=== PATIENT | male | born 1955 | race Caucasian/White ===

== ENCOUNTER 2021-04-04 05:25 | Inpatient (IN) | payer OTHER, SELFPAY ==
[2021-04-04] VITALS (29 sets, daily range): BP systolic 110–181; BP diastolic 47–95; PULSE 43–98; RESP 12–32; TEMP 36.1–37.1; O2SAT 89–98; BMI 42.3; BMI 40.2
--- NOTE | ~2021-04-04 | US_ITS ---
EXAMINATION: US VENOUS ULTRASOUND WITH DOPPLER LOWER EXTREMITY, BILATERAL CLINICAL INFORMATION: Hypoxia. Rule out DVT in legs. Rest of Dr. Cabello COMPARISON: None TECHNIQUE: Ultrasound of the deep veins is performed from the hip to the calf with compression sonography and color and pulse Doppler assessment. Spectral analysis with color-flow imaging is performed. FINDINGS: RIGHT: There is normal venous compression and respiratory variation and augmented flow. The visualized common femoral vein, superficial femoral vein, profunda femoral vein, popliteal vein, and the trifurcation region shows no evidence of deep venous thrombosis. There is no significant popliteal fossa cyst. -1 LEFT: There is normal venous compression and respiratory variation and augmented flow. The visualized common femoral vein, superficial femoral vein, profunda femoral vein, popliteal vein, and the trifurcation region shows no evidence of deep venous thrombosis. There is no significant popliteal fossa cyst. If the patient's symptoms persist, followup ultrasound in 5 days 7 days might be of value to exclude proximal propagation from a non-visualized calf vein. US/US venous duplex LE BI IMPRESSION: No DVT demonstrated in the bilateral lower extremity .
--- NOTE | ~2021-04-04 | CT_ITS ---
EXAMINATION: CT HEAD WITHOUT CONTRAST CLINICAL INFORMATION: Altered mental status COMPARISON: None TECHNIQUE: Contiguous axial imaging was performed from the skull base to vertex without intravenous administration of contrast. This CT examination was performed using dose optimization techniques as appropriate, variously including the following: *Automated exposure control *Adjustment of mA and/or kV according to patient size (this includes techniques or standardized protocols for targeted exams where dose is matched to indication/reason for exam; i.e. extremities or head) *Use of iterative reconstruction technique DLP: 99 mGy-cm FINDINGS: There is no evidence of acute intracranial hemorrhage or territorial infarction. No abnormal mass effect or midline shift is seen. You to white matter differentiation is well preserved. No extra-axial fluid collections are identified. The ventricles are normal in size. There is no abnormal attenuation within the brain parenchyma. The osseous structures and soft tissues are normal. The mastoid air cells and visualized portions of the paranasal sinuses are well aerated. CT/CT head/brain wo con IMPRESSION: No acute intracranial process seen.
--- NOTE | ~2021-04-04 | XR_ITS ---
EXAMINATION: XR CHEST CLINICAL INFORMATION: Shortness of breath COMPARISON: 08/16/2019 TECHNIQUE: Frontal view of the chest was obtained. FINDINGS: Suboptimal assessment due to patient rotation. Lung volumes are symmetric. No focal consolidation is seen. Interstitial prominence could reflect bronchial wall thickening. No evidence of pneumothorax or significant pleural effusion. Cardiomediastinal silhouette appears similar to prior accounting for differences in patient rotation. Healed left rib fractures are noted. XR/XR chest 1V IMPRESSION: No focal consolidation. Interstitial prominence which could reflect bronchial wall thickening in the setting of acute or chronic bronchitis.
--- NOTE | 2021-04-04 05:46 | ECG_ITS ---
Test Reason : SOB Blood Pressure : / mmHG Vent. Rate : 098 BPM Atrial Rate : 098 BPM P-R Int : 200 ms QRS Dur : 142 ms QT Int : 382 ms P-R-T Axes : -06 -06 036 degrees QTc Int : 487 ms Sinus rhythm with Premature atrial complexes with Aberrant conduction Right bundle branch block Abnormal ECG When compared with ECG of 17-AUG-2019 00:15, Aberrant conduction is now Present Right bundle branch block is now Present ST less elevated in Inferior leads Referred By: Em Muñoz Electronically Signed By:ABISAI YOUNG MD
--- NOTE | 2021-04-04 05:50 | ED.SOB ---
HPI - SOB/Dyspnea General Chief Complaint: Upper Respiratory Symptoms Stated Complaint: SOB X2 HOURS (HX CHF/COPD) Time Seen by Provider: 04/04/21 05:46 Source: patient and family () Mode of arrival: EMS History of Present Illness HPI Narrative: 65-year-old male who is brought in by EMS with onset of shortness of breath approximately 2 hours ago and reports a history of both CHF and COPD. Patient continues to be a daily smoker, has been vaccinated for COVID-19, denies use of diuretics or blood thinners but affirms that he has had prior [place] and CVA. In addition, patient is missing all fingers after frostbite as per at the bedside. Patient's shortness of breath was also accompanied by some chest pain which has currently resolved. Patient is on 4 L via nasal cannula and satting between 90 and 92%. Related Data Allergies Allergy/AdvReac Type Severity Reaction Status Date / Time quetiapine [From Seroquel] Allergy Mild LEG Unverified 01/23/20 16:37 SWELLING onion [Onion] AdvReac Unknown NAUSEA & Unverified 01/23/20 16:37 VOMITING PEPPERS AdvReac Mild NAUSEA & Uncoded 01/23/20 16:37 VOMITING Review of Systems Review of Systems: Pertinent positives and negatives as stated in HPI 10 point review of systems is otherwise negative. [facility] Past Medical History Source: nursing notes reviewed Medical History Complicated UTI (urinary tract infection) Malignant neoplasm of overlapping sites of bladder Nephrolithiasis Neurogenic bladder Prostate cancer Social History Social History Patient Tobacco Use Status: Current everyday Tobacco user Use of substances other than those prescribed or required for medical reasons: No Advance Directives: No Advance Directives Information Provided: Yes Physical Exam Vital Signs: Vital Signs: Last Vital Signs Temp 97.2 F 04/04/21 07:22 Pulse 92 04/04/21 07:22 Resp 14 04/04/21 07:22 BP 141/72 H 04/04/21 07:22 Pulse Ox 97 04/04/21 07:22 Oxygen Flow Rate 4 04/04/21 06:19 Body Mass Index 42.3 VITAL SIGNS: Reviewed. GENERAL: Chronically ill, in no acute distress. HEAD: Normocephalic/atraumatic EYES: PERRLA, EOMI OROPHARYNX: no oral lesions noted, posterior pharynx clear, dry mucosa NECK: Supple, no adenopathy LUNGS: Decreased breath sounds bilaterally with scattered rhonchi and mild expiratory wheeze with rales appreciated in the base, no tachypnea appreciated. SpO2<95> on 4 L nasal cannula CARDIOVASCULAR: Regular rate and rhythm without noted murmurs, no JVD but bilateral lower extremity edema with 1 to 2+ pitting ABDOMEN: Obese, Soft, non-tender, non-distended with bowel sounds. MUSCULOSKELETAL: No tenderness, all digits missing on hands EXTREMITIES: With edema and chronic changes in collar consistent with venous stasis, left foot with ulcer; no fingers on either hand secondary to prior history. SKIN: Inspection of the skin reveals no rashes NEUROLOGIC: Drowsy but arousable and oriented x 4. Strength and sensation to light touch were grossly intact x 4. Course Course Course Narrative: 65-year-old male with history and clinical presentation suggestive of possible combined COPD/CHF. On review of initial labs patient noted to be acidotic with pCO2 of 70 and was placed on BiPAP, given steroids as well as initial albuterol treatment 5 mg. Otherwise, hematology results without significant findings and chemistry results overall stable when compared to baseline. BNP and hsTrop are pending. Patient has also received antibiotics as well as Lasix. Reevaluation(s) Reevaluation #1: I contacted Cardiology regarding the elevated troponin in the context of both COPD as well as CHF exacerbation and pt without chest pain. 0740: Awaiting cardiology call back. Signed out to Dr Grace. Time: 07:20 Reevaluation #2: I discussed the case with Dr. Dowell, the jawbone puller, who accepts admission and agrees with starting heparin and will place the orders for the drip. Time: 07:55 MDM - SOB/Dyspnea Lab Data Result diagrams: 04/04/21 06:32 04/04/21 06:32 Labs: Lab Results 04/04/21 04/04/21 04/04/21 Range/Units 06:14 06:31 06:32 WBC 7.8 (4.8-10.8) X10*3/uL RBC 4.75 (4.60-5.80) X10*6/uL Hgb 14.2 (14.0-18.0) g/dl Hct 46.9 (42.0-52.0) % MCV 98.7 H (80.0-98.0) fL MCH 29.9 (27.0-33.0) pg MCHC 30.3 L (31.0-36.0) g/dl RDW 13.9 (11.0-16.0) % Plt Count 169 (160-400) X10*3/uL MPV 10.2 (9.4-12.4) fL Immature Gran % (Auto) 0.4 (0.0-0.4) % Neut % (Auto) 67.4 (45-73) % Lymph % (Auto) 21.0 (20-40) % [place] % (Auto) 7.0 (2-11) % Eos % (Auto) 4.1 H (0-4) % Baso % (Auto) 0.1 (0-2) % Lymph # (Auto) 1.6 (1.2-4.9) X10*3/uL [place] # (Auto) 0.5 (0.1-1.2) X10*3/uL Eos # (Auto) 0.3 (0.0-0.4) X10*3/uL Baso # (Auto) 0.0 (0.0-0.2) X10*3/uL Abs Immat Gran (auto) 0.03 (0.00-0.03) X10*3/uL Absolute Neuts (auto) 5.2 (2.0-8.3) x10*3/uL Absolute Nucleated RBC 0.000 (0.0-0.012) X10*3/uL Nucleated RBC % (auto) 0.0 (0.0-0.2) /100WBC PT (9.9-13.0) SEC INR (0.9-1.1) VBG pH (7.32-7.43) VBG pCO2 mmHg VBG pO2 mmHg VBG HCO3 (22-26) mmol/L VBG O2 Saturation % VBG Base Excess mmol/L Sodium (135-145) mmol/L Potassium (3.3-5.1) mmol/L Chloride (96-108) mmol/L Carbon Dioxide (22-29) mmol/L Anion Gap (12-20) BUN (9-16) mg/dL Creatinine (0.5-1.4) mg/dL Estim Creat Clear Calc Estimated GFR Random Glucose (60-115) mg/dL Lactic Acid 0.8 (0.5-2.0) mmol/L Calcium (8.4-10.2) mg/dL Total Bilirubin (0.0-1.0) mg/dL AST (5-37) U/L ALT (0-40) U/L Alkaline Phosphatase (39-117) U/L Troponin I High Sens (<3.5-35.0) ng/L B-Natriuretic Peptide (<100) pg/mL Total Protein (6.5-8.0) g/dL Albumin (3.5-5.0) g/dL Urine Color YELLOW Urine Appearance CLEAR Urine pH 6.0 (5.0-8.0) Ur Specific [place] 1.025 (1.005-1.025) Urine Protein TRACE (NEG-TRACE) MG/DL Urine Glucose (UA) NEG (NEG) MG/DL Urine Ketones NEG (NEG) MG/DL Urine Blood NEG (NEG) Urine Nitrite NEG (NEG) Ur Leukocyte Esterase NEG (NEG) 04/04/21 04/04/21 04/04/21 Range/Units 06:32 06:32 06:32 WBC (4.8-10.8) X10*3/uL RBC (4.60-5.80) X10*6/uL Hgb (14.0-18.0) g/dl Hct (42.0-52.0) % MCV (80.0-98.0) fL MCH (27.0-33.0) pg MCHC (31.0-36.0) g/dl RDW (11.0-16.0) % Plt Count (160-400) X10*3/uL MPV (9.4-12.4) fL Immature Gran % (Auto) (0.0-0.4) % Neut % (Auto) (45-73) % Lymph % (Auto) (20-40) % [place] % (Auto) (2-11) % Eos % (Auto) (0-4) % Baso % (Auto) (0-2) % Lymph # (Auto) (1.2-4.9) X10*3/uL [place] # (Auto) (0.1-1.2) X10*3/uL Eos # (Auto) (0.0-0.4) X10*3/uL Baso # (Auto) (0.0-0.2) X10*3/uL Abs Immat Gran (auto) (0.00-0.03) X10*3/uL Absolute Neuts (auto) (2.0-8.3) x10*3/uL Absolute Nucleated RBC (0.0-0.012) X10*3/uL Nucleated RBC % (auto) (0.0-0.2) /100WBC PT 13.3 H (9.9-13.0) SEC INR 1.2 H (0.9-1.1) VBG pH (7.32-7.43) VBG pCO2 mmHg VBG pO2 mmHg VBG HCO3 (22-26) mmol/L VBG O2 Saturation % VBG Base Excess mmol/L Sodium 142 (135-145) mmol/L Potassium 4.6 (3.3-5.1) mmol/L Chloride 111 H (96-108) mmol/L Carbon Dioxide 25 (22-29) mmol/L Anion Gap 11 L (12-20) BUN 16 (9-16) mg/dL Creatinine 1.57 H (0.5-1.4) mg/dL Estim Creat Clear Calc 62.8 Estimated GFR 44 Random Glucose 234 H (60-115) mg/dL Lactic Acid (0.5-2.0) mmol/L Calcium 9.8 (8.4-10.2) mg/dL Total Bilirubin 0.3 (0.0-1.0) mg/dL AST 21 (5-37) U/L ALT 20 (0-40) U/L Alkaline Phosphatase 141 H (39-117) U/L Troponin I High Sens 894.0 H* (<3.5-35.0) ng/L B-Natriuretic Peptide 158 H (<100) pg/mL Total Protein 7.4 (6.5-8.0) g/dL Albumin 4.2 (3.5-5.0) g/dL Urine Color Urine Appearance Urine pH (5.0-8.0) Ur Specific [place] (1.005-1.025) Urine Protein (NEG-TRACE) MG/DL Urine Glucose (UA) (NEG) MG/DL Urine Ketones (NEG) MG/DL Urine Blood (NEG) Urine Nitrite (NEG) Ur Leukocyte Esterase (NEG) 04/04/21 Range/Units 06:36 WBC (4.8-10.8) X10*3/uL RBC (4.60-5.80) X10*6/uL Hgb (14.0-18.0) g/dl Hct (42.0-52.0) % MCV (80.0-98.0) fL MCH (27.0-33.0) pg MCHC (31.0-36.0) g/dl RDW (11.0-16.0) % Plt Count (160-400) X10*3/uL MPV (9.4-12.4) fL Immature Gran % (Auto) (0.0-0.4) % Neut % (Auto) (45-73) % Lymph % (Auto) (20-40) % [place] % (Auto) (2-11) % Eos % (Auto) (0-4) % Baso % (Auto) (0-2) % Lymph # (Auto) (1.2-4.9) X10*3/uL [place] # (Auto) (0.1-1.2) X10*3/uL Eos # (Auto) (0.0-0.4) X10*3/uL Baso # (Auto) (0.0-0.2) X10*3/uL Abs Immat Gran (auto) (0.00-0.03) X10*3/uL Absolute Neuts (auto) (2.0-8.3) x10*3/uL Absolute Nucleated RBC (0.0-0.012) X10*3/uL Nucleated RBC % (auto) (0.0-0.2) /100WBC PT (9.9-13.0) SEC INR (0.9-1.1) VBG pH 7.18 L* (7.32-7.43) VBG pCO2 70 mmHg VBG pO2 38 mmHg VBG HCO3 27 H (22-26) mmol/L VBG O2 Saturation 63.0 % VBG Base Excess -3.1 mmol/L Sodium (135-145) mmol/L Potassium (3.3-5.1) mmol/L Chloride (96-108) mmol/L Carbon Dioxide (22-29) mmol/L Anion Gap (12-20) BUN (9-16) mg/dL Creatinine (0.5-1.4) mg/dL Estim Creat Clear Calc Estimated GFR Random Glucose (60-115) mg/dL Lactic Acid (0.5-2.0) mmol/L Calcium (8.4-10.2) mg/dL Total Bilirubin (0.0-1.0) mg/dL AST (5-37) U/L ALT (0-40) U/L Alkaline Phosphatase (39-117) U/L Troponin I High Sens (<3.5-35.0) ng/L B-Natriuretic Peptide (<100) pg/mL Total Protein (6.5-8.0) g/dL Albumin (3.5-5.0) g/dL Urine Color Urine Appearance Urine pH (5.0-8.0) Ur Specific [place] (1.005-1.025) Urine Protein (NEG-TRACE) MG/DL Urine Glucose (UA) (NEG) MG/DL Urine Ketones (NEG) MG/DL Urine Blood (NEG) Urine Nitrite (NEG) Ur Leukocyte Esterase (NEG) ECG Data Attestation: I personally reviewed and interpreted this ECG as follows: Prior ECG tracings: available for review (08/17/2019) Interpretation: Sinus rhythm with PACs, HR-98, right bundle branch block, NV borderline at 200, QTC mildly prolonged. Discharge Plan Discharge Clinical Impression: COPD exacerbation, CHF exacerbation, Elevated troponin Patient Disposition: Admitted As Inpatient
[2021-04-04] MEDS: Furosemide 100 MG/10 ML VIAL 60 MG IVPUSH (06:07)
--- NOTE | 2021-04-04 06:26 | PC.NURSE ---
PT ABLE TO ANSWER QUESTIONS BUT SLEEPY. PT OLIVE GROWER TO HOSPITAL ATTIRE. LABS BEING DRAWN. UA COLLECTED AND SENT. FOX PLACED. PT PLACED ON BEDSIDE MONITOR.
[2021-04-04 06:28] LABS: Appearance Urine CLEAR; Color Urine YELLOW; Glucose Urine UA NEG (NEG); Leukocyte Esterase Urine NEG (NEG); Nitrite Urine NEG (NEG); Specific Gravity - Urine 1.025 (1.005-1.025); Urine Blood NEG (NEG); Urine Ketones NEG (NEG); Urine Protein TRACE MG/DL (NEG-TRACE)
[2021-04-04 06:37] LABS: MANUAL DIFF FLAG NO
[2021-04-04 06:39] LABS: UACC Culture Trigger NO
[2021-04-04 06:42] LABS: Venous Blood Gas Refer to POC result
[2021-04-04 06:43] LABS: VBG Base Excess -3.1 mmol/L; VBG HCO3 27 mmol/L (22-26); VBG pCO2 70 mmHg; VBG pH 7.18 (7.32-7.43); VBG pO2 38 mmHg
[2021-04-04 06:44] LABS: Basophils Percent Auto 0.1 % (0-2); Eosinophils Absolute Auto 0.3 X10*3/uL (0.0-0.4); Eosinophils Percent Auto 4.1 % (0-4); Hematocrit 46.9 % (42.0-52.0); Hemoglobin 14.2 g/dl (14.0-18.0); Imm Gran Abs Auto 0.03 X10*3/uL (0.00-0.03); Imm Gran Pct Auto 0.4 % (0.0-0.4); Lymphocytes Absolute Auto 1.6 X10*3/uL (1.2-4.9); Mean Corpuscular HGB Conc 30.3 g/dl (31.0-36.0); Mean Corpuscular Hemoglobin 29.9 pg (27.0-33.0); Mean Corpuscular Volume 98.7 fL (80.0-98.0); Mean Platelet Volume 10.2 fL (9.4-12.4); Monocytes Absolute Auto 0.5 X10*3/uL (0.1-1.2); Neutrophils Absolute Auto 5.2 x10*3/uL (2.0-8.3); Neutrophils Percent Auto 67.4 % (45-73); Platelet Count 169 X10*3/uL (160-400); Red Blood Count 4.75 X10*6/uL (4.60-5.80); Red Cell Distribution Width 13.9 % (11.0-16.0); White Blood Count 7.8 X10*3/uL (4.8-10.8)
[2021-04-04 06:48] LABS: INTERNATIONAL NORM RATIO 1.2 (0.9-1.1); Prothrombin Time 13.3 SEC (9.9-13.0)
[2021-04-04 06:49] LABS: Lactic Acid 0.8 mmol/L (0.5-2.0)
[2021-04-04 06:54] LABS: Alanine Aminotransferase 20 U/L (0-40); Albumin Level 4.2 g/dL (3.5-5.0); Alkaline Phosphatase 141 U/L (39-117); Anion Gap 11 (12-20); Aspartate Amino Transferase 21 U/L (5-37); Bilirubin Total 0.3 mg/dL (0.0-1.0); Blood Urea Nitrogen 16 mg/dL (9-16); Calcium 9.8 mg/dL (8.4-10.2); Carbon Dioxide 25 mmol/L (22-29); Chloride 111 mmol/L (96-108); Creatinine Clr Calc Pharmacy 62.8; Estimated Glomerular Filt Rate 44; Glucose Random 234 mg/dL (60-115); Potassium 4.6 mmol/L (3.3-5.1); Sodium 142 mmol/L (135-145); Total Protein 7.4 g/dL (6.5-8.0)
[2021-04-04] MEDS: methylPREDNISolone Sod Succ 125 MG/2 ML VIAL IVPUSH (06:54)
--- NOTE | 2021-04-04 06:56 | SUR.OPER ---
Medicated per mar. red socks placed.
[2021-04-04 07:07] LABS: B Type Natriuretic Peptide 158 pg/mL (<100)
[2021-04-04] MEDS: Albuterol Sulfate (0.083%) 2.5 MG/3 ML VIAL.NEB 5 MG INHALE (07:16)
--- NOTE | 2021-04-04 07:26 | PC.NURSE ---
p is a/o x 3 no sob/roger. noted. pt placed on bipap 18/11 @ 35% 2ndary to lab results. lungs - cta. pt aware of plan of care. pt resting comfortably with at bedside.
[2021-04-04] MEDS: cefTRIAXone sodium 1 GM in 0.9 % Sodium Chloride 50 ML IV (07:37)
[2021-04-04 08:14] LABS: Partial Thromboplastin Time 43.4 SEC (24.1-38.0)
[2021-04-04 08:26] LABS: Venous Blood Gas Refer to POC result
[2021-04-04 08:27] LABS: Hematocrit 42.5 % (42.0-52.0); Mean Corpuscular HGB Conc 30.6 g/dl (31.0-36.0); Mean Corpuscular Hemoglobin 30.2 pg (27.0-33.0); Mean Corpuscular Volume 98.8 fL (80.0-98.0); Mean Platelet Volume 10.3 fL (9.4-12.4); Platelet Count 137 X10*3/uL (160-400); White Blood Count 7.7 X10*3/uL (4.8-10.8)
[2021-04-04 08:27] LABS: VBG Base Excess -0.5 mmol/L; VBG HCO3 29 mmol/L (22-26); VBG pCO2 72 mmHg; VBG pH 7.21 (7.32-7.43); VBG pO2 38 mmHg
[2021-04-04 08:51] LABS: Troponin-I High Sensitivity 715.4 ng/L (<3.5-35.0)
[2021-04-04] MEDS: Heparin Sodium,Porcine 5,000 UNIT/ML VIAL 3000 UNIT IVPUSH (09:07)
[2021-04-04 09:14] LABS: INTERNATIONAL NORM RATIO 1.2 (0.9-1.1); Prothrombin Time 13.9 SEC (9.9-13.0)
[2021-04-04] MEDS: Heparin Sodium,Porcine/1/2NS 25,000 UNIT/250 ML IV.SOLN 10 UNIT IVCONT (09:14)
[2021-04-04 09:17] LABS: PTT Heparin Drip 39.2 SEC (53-77.9)
--- NOTE | 2021-04-04 10:19 | PHA.MEDREC ---
Pharmacy Consult ? Medication Reconciliation Pharmacy has completed the medication reconciliation. Yue PringleD
[2021-04-04 11:17] LABS: Influenza A PCR NEGATIVE (Negative); Influenza B PCR NEGATIVE (Negative); Resp Syncy Virus RNA Qual PCR NEGATIVE (Negative); SARS COV2 PCR INHOUSE NEGATIVE (Negative)
--- NOTE | 2021-04-04 12:01 | PM.CCHP ---
History of Present Illness Date of Service: 04/04/21 Attending physician on admission: Jamil Dowell . Mr. Oakley was admitted to the ICU this morning with hypercarbic respiratory failure. The patient is a 65-year-old male with PMH of obesity, GAY, diabetes, hypertension, CKD (baseline 1.7), COPD (not on oxygen at home, no prior evidence of CO2 retention), HLD, CAD, ? prior [place], CHF, ? CVA, anemia, PTSD presumably secondary to his time in the , and bipolar disorder/depression.? In 2009, the patient had an episode of ascending cholangitis secondary to a common bile duct stone, with pancreatitis and severe sepsis. 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 H&P from 08/17/19 reports that the patient had at previous times variously been on olanzapine, Klonopin, venlafaxine, and Seroquel. More recent past medical history also includes: - Complicated UTI - Malignant neoplasm of bladder - Nephrolithiasis - Neurogenic bladder - Prostate cancer Echo report from 2006 showed slightly increased left ventricular cavity size with mild LVH, EF about 65%, with no wall motion abnormalities. The patient lives with his at home.? He is a current daily smoker. The patient was BIBA early this morning bec of SOB and chest pain.? On arrival to the ED, the patient was reportedly drowsy but arousable and oriented x4.? He was in no acute distress. ?Heart rate was 92, blood pressure 141/72, respiratory rate was 14, with sat of 92% on 4 L oxygen by nasal cannula.? Temperature was 97.2 degrees.? The general physical exam was notable for scattered rhonchi and mild expiratory wheeze and rales.? He had mild pitting edema of the lower extremities, with venous stasis changes.? He had no fingers on either hand. Labs in the ED were notable for a white count of 7.8, hemoglobin of 14 (baseline 11).? BUN/creatinine were 16/1.57 (baseline 20/1.6), bicarb was 25, random glucose was 234, lactic acid was 0.8.? BNP was 158 (was 104 in 2019).? A venous blood gas showed 7.18/70/-3.? U/a was negative.? CXR (my reading) suggests mild CHF and/or chronic lung disease.? The lungs do not show hyperinflated emphysematous lung dz.? The EKG showed new RBBB (IWMI seen in prior EKG was not seen on today?s EKG). The patient was given Lasix + antibiotics.? The troponin came back elevated at 894, with the repeat 715.? I was asked and recommended heparin while we waited for cardiology input.? I saw the patient in the ED at about 9am.? He was breathing easy on BiPAP but was already becoming somewhat agitated.? Admission to the ICU was ordered, with the plan to start him on Precedex, in addition to BiPAP. On arrival to the ICU, the patient was moderately disoriented and mildly agitated.? HR was 68, SR.? BP 156/80.? On BiPAP 14/7/35%, RR was 14-17, Vt 680-950, Ve 10-12L, SpO2 98%.? We changed him over to CPAP 10/30%.? RR was 16-20, Vt 600-1000cc, Ve 10-13L.? The patient was normal thermic.? Pupils were equal round, about 3 mm.? There is no jugular venous distention with the head of bed at about 40 degrees.? Chest was clear to auscultation, with distant breath sounds. ?The patient does have an occasional wet cough. ?There were no wheezes.? The expiratory phase was normal.? Heart tones were soft.? Regular rate and rhythm, with normal-sounding S1 and S2, with no murmur or gallops.? The abdomen was but obese and benign.? The lower extremities had mild pretibial erythema that looks chronic, with no suggestion of acute infection.? There is about 1+ pretibial edema.? No obvious central edema. LABORATORY DATA:? As above.? A 2nd venous blood gas drawn in the ED, reportedly after the patient was on BiPAP for 1-2 hours, showed a PvCO2 unchanged at 72. Not long after arrival to the ICU, the patient became increasingly agitated.? One of his IVs did not work, I had to put a 22 gauge angio into a superficial vein on his right breast.? He required Zyprexa 5 mg IM plus Precedex to get him calm. IMPRESSION: 1. Obesity with GAY, likely OHS. 2. ? COPD 3. CKD.? Renal fxn is currently at baseline 4. Acute hypercapnic and hypoxemic resp failure.? Likely 2? COPD exac or CHF. 5. ? COPD exacerbation:? He?s afebrile, the WBC is normal, but he?s got a wet cough.? The latte could be COPD exac or CHF.? In case he has bronchitis, we?ll put him on a 5-day course of Zithromax.? I see no indication for steroids.? No evidence of pneumonia or sepsis. 6. ? CHF.? The CXR looks most to me like CHF.? The BNP is elevated, but only minimally.? He is edematous.? Notably, he is not on Lasix at home.? He got Lasix in the ED and already put out 1Liter. ?I?ll write him for Lasix again tonight, then 40 mg IV daily. 7. Acute delirium.? He currently takes Klonopin, lamictal, Zyprexa and venlafaxine at home. ?Clearly has baseline psychiatric disease, and has history of PTSD.? We will continue with Zyprexa 5mg q2 hr prn, max dose 30 mg daily, plus Precedex as needed.? Hopefully ?the acute delirium will resolve with resolution of his hypercarbia. 8. DM.? We?ll put him on sliding scale insulin. Critical care time (including extended chart rev and more than a dozen visits to the bedside bec of delirium): 140+ min. [facility] Past Medical History Medical History Complicated UTI (urinary tract infection) Malignant neoplasm of overlapping sites of bladder Nephrolithiasis Neurogenic bladder Prostate cancer Social History Social History Household Members: Spouse Housing: Unknown / Unable to assess Unable to assess alcohol history related to: Unable to respond and Unknown Patient Tobacco Use Status: Tobacco use Unknown Use of substances other than those prescribed or required for medical reasons: Unable to respond Spiritual Healthcare Practices: unable to assess Cheondoism Healthcare Practices: unable to assess Cultural Healthcare Practices: unable to assess Advance Directives: No Advance Directives Information Provided: Yes Recently lost weight without trying: Unsure How much weight loss: Unsure Nutrition Risks: On aspiration precautions Poor oral hygiene: Yes service: Yes Current occupational status: disabled Meds Allergies Allergy/AdvReac Type Severity Reaction Status Date / Time quetiapine [From Seroquel] Allergy Mild LEG Unverified 01/23/20 16:37 SWELLING onion [Onion] AdvReac Unknown NAUSEA & Unverified 01/23/20 16:37 VOMITING PEPPERS AdvReac Mild NAUSEA & Uncoded 01/23/20 16:37 VOMITING Active Medications: Current Medications Heparin Sodium (Porcine) (Heparin Sodium,Porcine 5,000 Unit/Ml Vial) 3,000 unit IVPUSH PROTOCOL BOLUS PRN; Protocol PRN Reason: 40 unit/kg - Heparin Protocol Heparin Sodium (Porcine) (Heparin Sodium,Porcine 5,000 Unit/Ml Vial) 5,000 unit IVPUSH PROTOCOL BOLUS PRN; Protocol PRN Reason: 80 unit/kg - Heparin Protocol Heparin Sodium/Sodium Chloride () 25,000 unit in 250 mls @ 0 mls/hr IVCONT .Q0M HUGO; Protocol Last Admin: 04/04/21 09:14 Dose: 7.86 units/kg/hr, 10 mls/hr Documented by: Pharmacy Consult (Consult Rx Perform Med Rec) 1 each MISCELLANE ONCE PRN PRN Reason: Consult order Home Medications Medication Instructions Recorded Confirmed Last Taken Type aspirin 81 mg tablet,delayed 81 mg PO DAILY 04/04/21 04/04/21 04/03/21 History release atorvastatin 20 mg tablet 10 mg PO BEDTIME 04/04/21 04/04/21 04/03/21 History buprenorphine 5 mcg/hour weekly 1 patch TRANSDERMAL Q7D 04/04/21 04/04/21 Unknown History transdermal patch (Butrans) clonazepam 1 mg tablet 1 mg PO TID 04/04/21 04/04/21 04/03/21 History doxepin 6 mg tablet (Silenor) 6 mg PO BEDTIME PRN 04/04/21 04/04/21 04/03/21 History hydroxyzine pamoate 25 mg capsule 25 mg PO BID PRN 04/04/21 04/04/21 04/03/21 History insulin glargine 100 unit/mL (3 35 unit SUBCUT BEDTIME 04/04/21 04/04/21 04/04/21 History mL) subcutaneous pen (Lantus Solostar U-100 Insulin) insulin lispro 100 unit/mL 12 unit SUBCUT TID 04/04/21 04/04/21 04/03/21 History subcutaneous pen lamotrigine 25 mg tablet 25 mg PO DAILY 04/04/21 04/04/21 04/03/21 History lisinopril 10 mg tablet 10 mg PO DAILY 04/04/21 04/04/21 04/03/21 History multivitamin 1 tab PO DAILY 04/04/21 04/04/21 04/03/21 History olanzapine 15 mg tablet 15 mg PO BID 04/04/21 04/04/21 04/03/21 History omeprazole 20 mg capsule,delayed 20 mg PO DAILY@0630 04/04/21 04/04/21 04/03/21 History release venlafaxine 37.5 mg 37.5 mg PO DAILY 04/04/21 04/04/21 04/03/21 History capsule,extended release 24 hr Physical Exam Vital Signs: Vital Signs: Last Vital Signs Temp 97.2 F 04/04/21 07:22 Pulse 98 04/04/21 11:00 Resp 16 04/04/21 11:28 BP 156/80 H 04/04/21 11:00 Pulse Ox 98 04/04/21 11:00 Oxygen Flow Rate 4 04/04/21 06:19 Body Mass Index 40.2 Results Labs CBC and Chem 7: 04/04/21 08:12 04/04/21 06:32 Labs: Laboratory Results - last 24 hr 04/04/21 04/04/21 04/04/21 06:14 06:31 06:32 MCV 98.7 H MCH 29.9 MCHC 30.3 L RDW 13.9 Plt Count 169 MPV 10.2 Immature Gran % (Auto) 0.4 Neut % (Auto) 67.4 Lymph % (Auto) 21.0 [place] % (Auto) 7.0 Eos % (Auto) 4.1 H Baso % (Auto) 0.1 Lymph # (Auto) 1.6 [place] # (Auto) 0.5 Eos # (Auto) 0.3 Baso # (Auto) 0.0 Abs Immat Gran (auto) 0.03 Absolute Neuts (auto) 5.2 Absolute Nucleated RBC 0.000 Nucleated RBC % (auto) 0.0 PT INR APTT PTT (Heparin Protocol) VBG pH VBG pCO2 VBG pO2 VBG HCO3 VBG O2 Saturation VBG Base Excess Anion Gap Estim Creat Clear Calc Estimated GFR Random Glucose Lactic Acid 0.8 Calcium Total Bilirubin AST ALT Alkaline Phosphatase Troponin I High Sens B-Natriuretic Peptide Total Protein Albumin Urine Color YELLOW Urine Appearance CLEAR Urine pH 6.0 Ur Specific [place] 1.025 Urine Protein TRACE Urine Glucose (UA) NEG Urine Ketones NEG Urine Blood NEG Urine Nitrite NEG Ur Leukocyte Esterase NEG Influenza Type A (PCR) Influenza Type B (PCR) RSV RNA Qual (PCR) SARS-CoV-2 RNA (RT-PCR) 04/04/21 04/04/21 04/04/21 06:32 06:32 06:32 MCV MCH MCHC RDW Plt Count MPV Immature Gran % (Auto) Neut % (Auto) Lymph % (Auto) [place] % (Auto) Eos % (Auto) Baso % (Auto) Lymph # (Auto) [place] # (Auto) Eos # (Auto) Baso # (Auto) Abs Immat Gran (auto) Absolute Neuts (auto) Absolute Nucleated RBC Nucleated RBC % (auto) PT 13.3 H INR 1.2 H APTT 43.4 H PTT (Heparin Protocol) VBG pH VBG pCO2 VBG pO2 VBG HCO3 VBG O2 Saturation VBG Base Excess Anion Gap 11 L Estim Creat Clear Calc 62.8 Estimated GFR 44 Random Glucose 234 H Lactic Acid Calcium 9.8 Total Bilirubin 0.3 AST 21 ALT 20 Alkaline Phosphatase 141 H Troponin I High Sens 894.0 H* B-Natriuretic Peptide 158 H Total Protein 7.4 Albumin 4.2 Urine Color Urine Appearance Urine pH Ur Specific [place] Urine Protein Urine Glucose (UA) Urine Ketones Urine Blood Urine Nitrite Ur Leukocyte Esterase Influenza Type A (PCR) Influenza Type B (PCR) RSV RNA Qual (PCR) SARS-CoV-2 RNA (RT-PCR) 04/04/21 04/04/21 04/04/21 06:36 08:12 08:12 MCV 98.8 H MCH 30.2 MCHC 30.6 L RDW 14.0 Plt Count 137 L MPV 10.3 Immature Gran % (Auto) Neut % (Auto) Lymph % (Auto) [place] % (Auto) Eos % (Auto) Baso % (Auto) Lymph # (Auto) [place] # (Auto) Eos # (Auto) Baso # (Auto) Abs Immat Gran (auto) Absolute Neuts (auto) Absolute Nucleated RBC 0.000 Nucleated RBC % (auto) 0.0 PT INR APTT PTT (Heparin Protocol) VBG pH 7.18 L* VBG pCO2 70 VBG pO2 38 VBG HCO3 27 H VBG O2 Saturation 63.0 VBG Base Excess -3.1 Anion Gap Estim Creat Clear Calc Estimated GFR Random Glucose Lactic Acid Calcium Total Bilirubin AST ALT Alkaline Phosphatase Troponin I High Sens 715.4 H* B-Natriuretic Peptide Total Protein Albumin Urine Color Urine Appearance Urine pH Ur Specific [place] Urine Protein Urine Glucose (UA) Urine Ketones Urine Blood Urine Nitrite Ur Leukocyte Esterase Influenza Type A (PCR) Influenza Type B (PCR) RSV RNA Qual (PCR) SARS-CoV-2 RNA (RT-PCR) 04/04/21 04/04/21 04/04/21 08:14 09:05 09:38 MCV MCH MCHC RDW Plt Count MPV Immature Gran % (Auto) Neut % (Auto) Lymph % (Auto) [place] % (Auto) Eos % (Auto) Baso % (Auto) Lymph # (Auto) [place] # (Auto) Eos # (Auto) Baso # (Auto) Abs Immat Gran (auto) Absolute Neuts (auto) Absolute Nucleated RBC Nucleated RBC % (auto) PT 13.9 H INR 1.2 H APTT PTT (Heparin Protocol) 39.2 L VBG pH 7.21 L VBG pCO2 72 VBG pO2 38 VBG HCO3 29 H VBG O2 Saturation 63.0 VBG Base Excess -0.5 Anion Gap Estim Creat Clear Calc Estimated GFR Random Glucose Lactic Acid Calcium Total Bilirubin AST ALT Alkaline Phosphatase Troponin I High Sens B-Natriuretic Peptide Total Protein Albumin Urine Color Urine Appearance Urine pH Ur Specific [place] Urine Protein Urine Glucose (UA) Urine Ketones Urine Blood Urine Nitrite Ur Leukocyte Esterase Influenza Type A (PCR) NEGATIVE Influenza Type B (PCR) NEGATIVE RSV RNA Qual (PCR) NEGATIVE SARS-CoV-2 RNA (RT-PCR) NEGATIVE Imaging Radiologist's Impressions: Impressions Chest X-Ray 04/04/21 05:46 IMPRESSION: No focal consolidation. Interstitial prominence which could reflect bronchial wall thickening in the setting of acute or chronic bronchitis. Critical Care Time Critical Care Time (minutes): 150
[2021-04-04] MEDS: dexmedeTOMIDidine HCL/NS 400 MCG/100 ML INFUS..BTL 12.72 MCG IVCONT (12:40)
[2021-04-04] MEDS: OLANZapine 10 MG VIAL 5 MG IM ×3 (12:59→19:00)
--- NOTE | 2021-04-04 13:50 | PC.NURSE ---
Patient arrived to unit at 1100 via stretcher with Bipap 14/7 30% on. Patient confused to place and situation but calm and cooperative with at bedside. Bipap taken off and switched to 2L NC per Dr Dowell - Spo2 low 90's. Patient became very agitated after left. Patient pulling O2 cannula and monitor wires off. Patient requiring frequent redirections, swearing at staff. Patient threw BP cuff at this RN when turned around and kicking staff. Zyprexa 5mg IM administered at 1300 and started on Precedex gtt. Soft limb wrist restraints applied because patient continued to pull monitor wires, etc. Patient calm and sleeping. Spo2 down to 88% - CPAP 10 35% applied. HR down to high 40's with occasional apnic episodes on CPAP - Precedex gtt turned off and MD at bedside. Patient unarousable to noxious stimuli - MD aware - no new orders at this time. Current vitals: HR 63, BP 122/60, RR 15, 94% on 35% CPAP.
[2021-04-04 15:46] LABS: PTT Heparin Drip 61.3 SEC (53-77.9)
--- NOTE | 2021-04-04 15:50 | MHC.CM.PN ---
04/04/21 15:04 - Case Mgmt Progress Note by Nicole Robinson Acct Num: [id number] : 08/15/1947 Patient Age: 73 Pt on BIPAP in ICU: somewhat obtunded and unable to participate in CM assessment: information obtained from EMR and from conversation with pt's spouse, Sarah via phone. 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 Pt continues to smoke, however using his digit stumps: 3 packs per day. Pt has 3 hours of BOX REPAIRER per day: Sarah will bring in agency information along with HCP copy today after 4 when she visits. PCP is a new provider from the [facility]: Sarah was unsure of the name. Pt has a w/c, walker and handicap equip van with a lift. He does not have home O2 at this time. Sarah states both her and pt would not want any sort of INPT STR and goals of care are for a return to home. CM to follow for changes in d/c plan as pt may be very deconditioned and require more care than Sarah can manage. Pt will need BLS transport
[2021-04-04] MEDS: dexmedeTOMIDidine HCL/NS 400 MCG/100 ML INFUS..BTL 9.54 MCG IVCONT (19:22)
[2021-04-04 21:02] LABS: ABG Base Excess -0.3 mmol/L; ABG HCO3 26 mmol/L (22-26); ABG pCO2 48 mmHg (32-45); ABG pCO2 TC 47 mmHg (32-45); ABG pH 7.33 (7.35-7.45); ABG pH TC 7.34 (7.35-7.45); ABG pO2 70 mmHg (83-108); ABG pO2 TC 66 (83-108)
[2021-04-04 21:25] LABS: ABG Refer to POC result
[2021-04-04 22:18] LABS: PTT Heparin Drip 64.9 SEC (53-77.9)
[2021-04-04] MEDS: Furosemide 40 MG/4 ML VIAL IVPUSH (23:33)
[2021-04-04] MEDS: Azithromycin 500 MG in 0.9 % Sodium Chloride 250 ML 125 MG IV (23:33)
[2021-04-05] VITALS (26 sets, daily range): BP systolic 118–161; BP diastolic 53–79; PULSE 43–94; RESP 10–28; TEMP 36.1–37.1; O2SAT 88–97; BMI 38.2
[2021-04-05] MEDS: clonazePAM 1 MG TABLET PO (00:56)
[2021-04-05] MEDS: OLANZapine 7.5 MG TABLET 15 MG PO (00:57)
[2021-04-05 05:47] LABS: Hemoglobin 12.9 g/dl (14.0-18.0); PLT CLUMP 1; Red Cell Distribution Width 13.8 % (11.0-16.0)
[2021-04-05 05:48] LABS: Hematocrit 40.7 % (42.0-52.0); Mean Corpuscular HGB Conc 31.7 g/dl (31.0-36.0); Mean Corpuscular Hemoglobin 30.4 pg (27.0-33.0); Platelet Count 127 X10*3/uL (160-400); Red Blood Count 4.24 X10*6/uL (4.60-5.80); White Blood Count 8.1 X10*3/uL (4.8-10.8)
[2021-04-05 05:52] LABS: INTERNATIONAL NORM RATIO 1.4 (0.9-1.1)
--- NOTE | 2021-04-05 09:29 | P.CDIC_ITS ---
CDI Concurrent Query Documentation Clarification: PHYSICIAN'S DOCUMENTATION REQUEST Date of Query: 04/05/21929 Patient Name: Juma Oakley Admit Date: 04/04/21 Dear Doctor, A review of the medical record indicates additional documentation may be needed. Please review below and update the documentation accordingly. Clinical Indicators: Risk Factors/Clinical Indicators/Treatments ICU note: 04/04 - CXR looks most like CHF. Elevated BNP 158 H Lasix in ED: edematous Please provide further specificity regarding the most likely type and acuity of CHF you are evaluating, treating, or monitoring. Examples include: Type: * Systolic * Diastolic * Combined Systolic/Diastolic * Other ? please specify * Unable to determine Acuity: * Acute * Chronic * Acute on chronic * Unable to determine Use of terms such as suspected, likely, concern for, or probable (associated with a specific diagnosis that is being evaluated, monitored, or treated as if it exists) are acceptable and can be coded in the inpatient setting, when docu mented at the time of discharge. Thank you, Amber Palacios [facility], CDIS Extension: [phone] Please use your independent medical judgment in providing your response. THIS QUERY IS PART OF THE PERMANENT MEDICAL RECORD
--- NOTE | 2021-04-05 09:34 | MHC.CDI.CONC ---
CDI Concurrent Query Documentation Clarification: PHYSICIAN'S DOCUMENTATION REQUEST Date of Query: 04/05/21 0934 Patient Name: Juma Oakley Admit Date: 04/04/21 Dear Doctor, A review of the medical record indicates additional documentation may be needed. Please review below and update the documentation accordingly. Clinical Indicators: Risk Factors/Clinical Indicators/Treatments CKD - currently at baseline 1.7 Cr: 1.57 Gfr: 44 Please clarify which of the following accurately represents the patient's renal status: CKD, please provide stage Other (please specify) Unable to determine Stages of Chronic Kidney Disease* Level Description GFR G1 Normal or High > 90 G2 Mildly decreased 60 ? 89 G3a Mildly to moderately decreased 45 ? 59 G3b Moderately to severely decreased 30 - 44 G4 Severely decreased 15 ? 29 G5 Kidney failure < 15 *Source: Kidney Disease: Improving Global Outcomes (KDIGO) 2012 Use of terms such as suspected, likely, concern for, or probable (associated with a specific diagnosis that is being evaluated, monitored, or treated as if it exists) are acceptable and can be coded in the inpatient setting, when documented at the time of discharge. Thank you, Amber Palacios [facility], CDIS Extension: [phone] Please use your independent medical judgment in providing your response. THIS QUERY IS PART OF THE PERMANENT MEDICAL RECORD
[2021-04-05] MEDS: LORazepam 2 MG/ML VIAL 0.5 MG IVPUSH ×2 (10:04→11:51)
[2021-04-05] MEDS: dexmedeTOMIDidine HCL/NS 400 MCG/100 ML INFUS..BTL 15.9 MCG IVCONT (10:18)
[2021-04-05] MEDS: Heparin Sodium,Porcine/1/2NS 25,000 UNIT/250 ML IV.SOLN 10 UNIT IVCONT (10:19)
[2021-04-05 11:48] LABS: VBG HCO3 27 mmol/L (22-26); VBG pCO2 46 mmHg; VBG pH 7.37 (7.32-7.43); VBG pO2 53 mmHg
[2021-04-05 12:00] LABS: D Dimer High Sensitivity < 150 NG/ML
[2021-04-05] MEDS: Lactated Ringers 500 ML IVCONT (12:05)
[2021-04-05 12:08] LABS: Anion Gap 11 (12-20); Blood Urea Nitrogen 22 mg/dL (9-16); Calcium 9.3 mg/dL (8.4-10.2); Carbon Dioxide 27 mmol/L (22-29); Chloride 108 mmol/L (96-108); Creatinine Clr Calc Pharmacy 60.3; Estimated Glomerular Filt Rate 45; Glucose Random 248 mg/dL (60-115); Potassium 4.6 mmol/L (3.3-5.1); Sodium 141 mmol/L (135-145)
[2021-04-05 12:17] LABS: B Type Natriuretic Peptide 89 pg/mL (<100); Troponin-I High Sensitivity 478.7 ng/L (<3.5-35.0)
[2021-04-05 12:30] LABS: Venous Blood Gas Refer to POC result
[2021-04-05 12:30] LABS: TSH reflex Free T4 0.86 uIU/mL (0.32-4.0)
--- NOTE | 2021-04-05 12:57 | PC.NURSE ---
Pt becoming more agitated, threatening to kick staff memebers in the head. IVP ativan given and precedex gtt titrated per emar
--- NOTE | 2021-04-05 13:00 | CA_ITS ---
Transthoracic Echocardiogram Patient (Last, First, Middle): Juma Oakley P Gender: Male Date of : 1955 Age: 65 Procedure Date: 04/05/2021 Procedure Type: Transthoracic Echocardiogram Location: ICU Height: 177.8 cm Weight: 120.66 kg BSA: 2.36 m2 Heart Rate: bpm BP: 139 / 66 mmHg Labor Relations Or Personnel Negotiator: JAZ Referring MD: Louis Santos MD Symptoms: chf Study Quality: Technically Difficult/Contrast ECG Rhythm: Sinus Conclusions: - Even with contrast, difficult to assess LV function. Suspect LVEF about 40%. - Evidence suggests grade II (moderate) diastolic dysfunction. - Mildly increased right ventricular cavity size. Findings Procedure Information Contrast agent, definity, is being given per protocol without apparent complications. Left Ventricle Normal left ventricular cavity size. There is mildly increased left ventricular wall thickness. Regional wall motion abnormalities can not be excluded due to suboptimal endocardial definition. E/E prime ratio is >15, consistent with elevated filling pressures. Evidence suggests grade II (moderate) diastolic dysfunction. Even with contrast, difficult to assess LV function. Suspect LVEF about 40%. Right Ventricle Mildly increased right ventricular cavity size. There is normal right ventricular systolic function. Atria Both atria are normal in size. Aortic Valve There is a normal trileaflet aortic valve. There is no aortic valve stenosis. There is no aortic valve regurgitation. Mitral Valve There is mild mitral annular calcification. There is trace mitral valve regurgitation. There is no mitral valve stenosis. Pulmonic Valve The pulmonic valve was not well visualized. Tricuspid Valve The tricuspid valve was not well visualized. There is no tricuspid valve regurgitation. Tricuspid regurgitation envelope is inadequate for calculation of right ventricular systolic pressure. Great Vessels The asc aorta is normal in size. Venous The inferior vena cava was not well visualized. Pericardium/Pleural There is no evidence of pericardial effusion. Prior Study Comparison Changes noted compared to prior study dated: 07/31/2006. LVEF lower. Measurements 2D Linear Measurements IVSd: 1.27 0.6-0.9/0.6-1.0 cm LVIDd: 5.37 3.9-5.3/4.2-5.9 cm LVIDd Index: 2.28 2.4-3.2/2.2-3.1 cm/m2 LVIDs: 4.46 2.0-3.6 cm LVPWd: 1.26 0.7-1.1 cm Ao Root: 3.80 2.1-3.5 cm LA Diam: 4.40 2.7-3.8/3.0-4.0 cm LAIDs Index: 1.86 1.5-2.3 cm/m2 LV Mass: 351.71 67-162/88-224 g LV Mass Index: 149.03 43-95/49-115 g/m2 LVOT Diam: 2.20 3.0+(-)1.3 cm Mitral Valve MV Pk E: 1.08 MV PK A: 0.97 MV Decel Time: 363.00 E/A: 1.10 E'Lateral: 6.42 E'Medial: 7.07 E/E' Med: 15.30 E/E' Lat: 16.80 PHT: 106.00 MVA PHT: 2.08 Decel [place]: 2.98 Aortic Valve AoV Pk Devante: 1.15 AoV Mn Devante: 0.79 AoV VTI: 0.29 AoV Pk Grad: 5.00 Aov Mn Grad: 3.00 KOFI Cont.VTI: 2.51 LVOT LVOT Pk Devante: 0.74 LVOT Mn Devante: 0.54 LVOT VTI: 0.19 LVOT Pk Grad: 2.00 LVOT Mn Grad: 1.00 LVOT Diam: 2.20 LVOT Area: 3.80 Diastolic Function MV Pk E: 1.08 MV Pk A: 0.97 E/A: 1.10 E'Medial: 7.07 E/E' Med: 15.30 E' Laterial: 6.42 E/E' Lat: 16.80 Right Ventricle TAPSE (mm): 1.89 TVS' Devante: 8.49 Great Vessels Aorta Ao Root-2D: 3.80 2.0-3.7 cm Ao Asc: 3.20 2.1-3.4 cm Updated in Other Vendor System with Status of Final Thanh Herman MD electronically signed on 04/05/2021 4:16:28 PM with status of Final
[2021-04-05 13:23] LABS: Folate > 20.0 ng/mL (> or = 4.0); Vitamin B12 528 pg/mL (200-900)
[2021-04-05] MEDS: Midazolam HCl/PF 2 MG/2 ML VIAL IVPUSH (14:25)
[2021-04-05] MEDS: dexmedeTOMIDidine HCL/NS 400 MCG/100 ML INFUS..BTL 22.26 MCG IVCONT ×2 (14:35→19:05)
--- NOTE | 2021-04-05 17:07 | PM.CCPN ---
Subjective Subjective Date of Service: 04/05/21 Interval History: 65-year-old male continued heavy smoker 3 packs per day with underlying COPD and no known cardiac history and also is a diabetic with a background of a prostate carcinoma as well as a bladder carcinoma who presents with altered mental status noted to be an acute hypercarbic respiratory failure with associated hypoxia and this was treated with BiPAP but apparently has been having some altered behavior at home and zit and some of his behavior did not correct here with with the correction of the hypercarbia so there may be other components to this end we sent off a TSH B12 and folate levels all of which were normal and my bedside echocardiogram day demonstrated mild diffuse hypokinesis without specific segmental wall motion abnormality and 45-50% ejection fraction but he did have a peak troponin of 890 which continue to decline implying that the might have been an acute ischemic event along with a modest increase in BNP which is also resolving so he might have actually had and is scanned ischemic event resulting in heart failure which has reversed itself an EKG has just nonspecific ST-T changes in the inferolateral distribution but a right bundle branch block in sinus rhythm and the acute hypercarbia has since resolved and currently just on nasal cannula Critical Care Time (minutes): 60 Physical Exam Vital Signs: Vital Signs: Last Vital Signs Temp 96.9 F 04/05/21 15:00 Pulse 50 04/05/21 16:00 Resp 28 H 04/05/21 16:00 BP 157/73 H 04/05/21 16:00 Pulse Ox 91 L 04/05/21 16:00 Oxygen Flow Rate 4 04/04/21 06:19 Body Mass Index 38.2 Nonfocal neurologically he does awaken and does talk and he is oriented to place and person Bilateral stasis dermatitis but no edema currently Lungs without diaphragmatic or accessory muscle use and no adventitious sounds diminished bilateral breath sounds Abdomen benign no organomegaly Objective Data Labs CBC & Chem 7: 04/05/21 05:38 04/05/21 11:41 Labs: Laboratory Results - last 24 hr 04/04/21 04/04/21 04/05/21 20:56 21:53 05:38 WBC 8.1 RBC 4.24 L Hgb 12.9 L Hct 40.7 L MCV 96.0 MCH 30.4 MCHC 31.7 RDW 13.8 Plt Count 127 L MPV 10.0 Absolute Nucleated RBC 0.000 Nucleated RBC % (auto) 0.0 PT INR PTT (Heparin Protocol) 64.9 D-Dimer High Sensitivty O2 Saturation 93.0 ABG pH at Pt Temp 7.33 L ABG pH (Temp Correct) 7.34 L ABG pCO2 at Pt Temp 48 H ABG pCO2 (Temp Corrct 47 H ABG pO2 at Pt Temp 70 L ABG pO2 (Temp Correct 66 L ABG HCO3 26 ABG Base Excess (Actual) -0.3 VBG pH VBG pCO2 VBG pO2 VBG HCO3 VBG O2 Saturation VBG Base Excess Sodium Potassium Chloride Carbon Dioxide Anion Gap BUN Creatinine Estim Creat Clear Calc Estimated GFR Random Glucose Calcium Troponin I High Sens B-Natriuretic Peptide Vitamin B12 Folate TSH 04/05/21 04/05/21 04/05/21 05:38 11:41 11:41 WBC RBC Hgb Hct MCV MCH MCHC RDW Plt Count MPV Absolute Nucleated RBC Nucleated RBC % (auto) PT 16.0 H INR 1.4 H PTT (Heparin Protocol) 63.0 D-Dimer High Sensitivty O2 Saturation ABG pH at Pt Temp ABG pH (Temp Correct) ABG pCO2 at Pt Temp ABG pCO2 (Temp Corrct ABG pO2 at Pt Temp ABG pO2 (Temp Correct ABG HCO3 ABG Base Excess (Actual) VBG pH VBG pCO2 VBG pO2 VBG HCO3 VBG O2 Saturation VBG Base Excess Sodium 141 Potassium 4.6 Chloride 108 Carbon Dioxide 27 Anion Gap 11 L BUN 22 H Creatinine 1.55 H Estim Creat Clear Calc 60.3 Estimated GFR 45 Random Glucose 248 H Calcium 9.3 Troponin I High Sens 478.7 H* B-Natriuretic Peptide 89 Vitamin B12 Folate TSH 0.86 04/05/21 04/05/21 04/05/21 11:41 11:41 11:42 WBC RBC Hgb Hct MCV MCH MCHC RDW Plt Count MPV Absolute Nucleated RBC Nucleated RBC % (auto) PT INR PTT (Heparin Protocol) D-Dimer High Sensitivty < 150 O2 Saturation ABG pH at Pt Temp ABG pH (Temp Correct) ABG pCO2 at Pt Temp ABG pCO2 (Temp Corrct ABG pO2 at Pt Temp ABG pO2 (Temp Correct ABG HCO3 ABG Base Excess (Actual) VBG pH 7.37 VBG pCO2 46 VBG pO2 53 VBG HCO3 27 H VBG O2 Saturation 83.0 VBG Base Excess 2.0 Sodium Potassium Chloride Carbon Dioxide Anion Gap BUN Creatinine Estim Creat Clear Calc Estimated GFR Random Glucose Calcium Troponin I High Sens B-Natriuretic Peptide Vitamin B12 528 Folate > 20.0 TSH Microbiology Microbiology Results: Microbiology 04/04/21 06:31 Blood - Venous Blood Culture - Preliminary No growth after 24 hours. 04/04/21 06:31 Blood - Venous Blood Culture - Preliminary No growth after 24 hours. Progress Note: A&P Assessment and plan (1) COPD exacerbation: Status: Acute (2) CHF exacerbation: Status: Acute (3) Elevated troponin: Status: Acute (4) Nephrolithiasis: Status: Acute (5) Complicated UTI (urinary tract infection): Status: Acute (6) Prostate cancer: Status: Acute (7) Acute coronary syndrome with high troponin: Status: Acute Assessment and Plan: For now will consider anticoagulation with either heparin or Lovenox along with aspirin as prophylaxis and consider possibility of ARB and will follow blood gas for any return of hypercarbia that might require at least nocturnal noninvasive ventilation Quality Stroke Does the patient have a stroke diagnosis?: No VTE Prior VTE?: No VTE Risk Level:: Medical - moderate - high VTE Device Contraindication: Treatment Not Indicated VTE Drug Contraindication: Treatment Not Indicated
--- NOTE | 2021-04-05 18:37 | PC.NURSE ---
VSS, Sr/SB on tele. Pt oriented to self only, yelling out, combative towards staff. Precedex gtt titrated per EMAR. LS dim, pt on cpap 8; 35% or 5L NC when aware. U/o 10-30ml/hr aware. Pt remains NPO. small sips of water for comfort given. Pt had hermilo doppler, echo and head ct done. awaiting results. pt repoed as tolerated/as pt would let staff, bed bath given, updated bedside
[2021-04-05] MEDS: Atorvastatin Calcium 10 MG TABLET PO (21:09)
[2021-04-05] MEDS: Azithromycin 250 MG TABLET PO (21:36)
[2021-04-05] MEDS: OLANZapine 10 MG VIAL 5 MG IM (21:36)
[2021-04-06] VITALS (18 sets, daily range): BP systolic 113–144; BP diastolic 59–88; PULSE 56–113; RESP 13–34; TEMP 36.2–36.7; O2SAT 89–95; BMI 36.9
[2021-04-06 01:52] LABS: Glucose, Whole Blood 209 mg/dL (60-115)
[2021-04-06 05:41] LABS: MANUAL DIFF FLAG NO
[2021-04-06 05:44] LABS: VBG Base Excess 0.1 mmol/L; VBG HCO3 26 mmol/L (22-26); VBG pCO2 48 mmHg; VBG pH 7.34 (7.32-7.43); VBG pO2 34 mmHg
[2021-04-06 05:48] LABS: Basophils Percent Auto 0.1 % (0-2); Eosinophils Absolute Auto 0.4 X10*3/uL (0.0-0.4); Eosinophils Percent Auto 4.9 % (0-4); Hematocrit 44.5 % (42.0-52.0); Hemoglobin 14.1 g/dl (14.0-18.0); Imm Gran Abs Auto 0.03 X10*3/uL (0.00-0.03); Imm Gran Pct Auto 0.3 % (0.0-0.4); Lymphocytes Absolute Auto 1.6 X10*3/uL (1.2-4.9); Lymphocytes Percent Auto 18.5 % (20-40); Mean Corpuscular HGB Conc 31.7 g/dl (31.0-36.0); Mean Corpuscular Hemoglobin 30.3 pg (27.0-33.0); Mean Corpuscular Volume 95.5 fL (80.0-98.0); Mean Platelet Volume 10.5 fL (9.4-12.4); Monocytes Absolute Auto 0.6 X10*3/uL (0.1-1.2); Monocytes Percent Auto 6.6 % (2-11); Neutrophils Absolute Auto 6.1 x10*3/uL (2.0-8.3); Neutrophils Percent Auto 69.6 % (45-73); Platelet Count 160 X10*3/uL (160-400); Red Blood Count 4.66 X10*6/uL (4.60-5.80); Red Cell Distribution Width 13.6 % (11.0-16.0); White Blood Count 8.8 X10*3/uL (4.8-10.8)
[2021-04-06 05:49] LABS: INTERNATIONAL NORM RATIO 1.5 (0.9-1.1); Prothrombin Time 17.7 SEC (9.9-13.0)
[2021-04-06 05:52] LABS: PTT Heparin Drip 58.8 SEC (53-77.9)
[2021-04-06 06:18] LABS: Anion Gap 13 (12-20); Blood Urea Nitrogen 25 mg/dL (9-16); Calcium 9.3 mg/dL (8.4-10.2); Carbon Dioxide 25 mmol/L (22-29); Chloride 108 mmol/L (96-108); Creatinine Clr Calc Pharmacy 64.4; Estimated Glomerular Filt Rate 49; Glucose Random 216 mg/dL (60-115); Magnesium 1.2 mg/dL (1.6-2.6); Phosphorus 2.2 mg/dL (2.7-4.5); Potassium 4.3 mmol/L (3.3-5.1); Sodium 142 mmol/L (135-145); Troponin-I High Sensitivity 253.6 ng/L (<3.5-35.0)
[2021-04-06 07:28] LABS: Venous Blood Gas Refer to POC result
--- NOTE | 2021-04-06 07:38 | P.CDIC_ITS ---
CDI Concurrent Query Documentation Clarification: PHYSICIAN'S DOCUMENTATION REQUEST Date of Query: 04/06/21 0739 Patient Name: Juma Oakley Admit Date: 04/04/21 Dear Doctor, A review of the medical record indicates additional documentation may be needed. Please review below and update the documentation accordingly. Risk Factors/Clinical Indicators/Treatments ICU note 04/04 - patient becoming agitated, moderately disoriented, placed on BIPAP. Zyprexa, Precedex to calm him down. History of PTSD, psychiatric issues. Home meds: Klonopin, Lamictal, Zyprexia, Venlafaxine. Based on the above, could you clarify in the Progress Notes which, if any of the following, is the most likely etiology of the confusion/altered mental status? l * Encephalopathy - indicate type such as metabolic, toxic, septic, alcoholic, hypertensive, etc. * Acute delirium - indicate known or suspected etiology, due to narcotics or other drugs * Acute or subacute confusional state due to (specify known or suspected etiology) * Other etiology (please specify) * Unable to determine Use of terms such as suspected, likely, concern for, or probable (associated with a specific diagnosis that is being evaluated, monitored, or treated as if it exists) are acceptable and can be coded in the inpatient setting, when documented at the time of discharge. Thank you, Amber Palacios [facility], CDIS Extension: [phone] Please use your independent medical judgment in providing your response. THIS QUERY IS PART OF THE PERMANENT MEDICAL RECORD
[2021-04-06 07:54] LABS: Glucose, Whole Blood 200 mg/dL (60-115)
[2021-04-06] MEDS: Magnesium Sulfate/H2O 2 GM/50 ML PIGGYBACK IV (08:54)
[2021-04-06] MEDS: Aspirin Enteric Coated 81 MG TABLET.DR PO (10:35)
[2021-04-06 11:09] LABS: Glucose, Whole Blood 267 mg/dL (60-115)
[2021-04-06] MEDS: Spironolactone 25 MG TABLET PO (11:10)
[2021-04-06] MEDS: Insulin Lispro 100 UNIT/ML 3 ML VIAL SUBCUT ×3 (11:12→19:31)
--- NOTE | 2021-04-06 11:59 | MHC.SL.SWA ---
Speech Pathologist Impression: Oral Phase Dysphagia Risk of Aspiration Due to: Reduced Cognition Dysphasia Diet Status: Upgrade Liquid Consistency and Strategies for Safe Swallow: Liquid Intake Recommendation: Thin Liquid Intake Strategies: Small Sips No Straws Solid Food Consistency: Dietary Recommendations: Chopped/Advanced (NDD3) Additional Modifications to Solid Foods: Pt requires full assist for all food and liquid consumption due to manual impairment. Oral Medication Intake: Whole with Liquid Compensatory Strategies and Precautions to be Taken for Safe Swallow: Supervision While Eating and Drinking for Safe Swallow: Total Supervision (1:1) Foods to Avoid: Foods that require ample chewing for consumption Swallowing Recommended Treatments: Recommendation for Speech: Inpatient Speech Therapy PT with mild oral phase dysphagia due to lack of dentition, mild risk due to mental status change which is resolving (returning to baseline). 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 Comment: Continue WASHER AND CRUSHER TENDER TX X1 to monitor toleration of recommended diet. Frequency/Duration: Date Range for Service Req: Timeline to reassess: Steam Hammer Operator Clinican/Clinical Fellow: No Supervisory Statement: I have reviewed and agree with the student/clinical fellow's documentation: Speech Language Pathologist: Gina Munson M.A., CCC-WASHER AND CRUSHER TENDER
--- NOTE | 2021-04-06 12:00 | PM.CCPN ---
Subjective Subjective Date of Service: 04/06/21 Interval History: 65-year-old long standing 3 pack-a-day smoker with severe COPD probable features of sleep apnea and obesity hypoventilation presented with acute on chronic hypercarbic and hypoxic respiratory failure and altered mental status responded to BiPAP therapy which we did for 2 days consecutively and now it is just a nocturnal requirement and mental status is markedly improved but he does have a background of forgetfulness some manifestations of progressive dementia and he has an underlying schizoaffective disorder but he was clearly altered beyond that and probably on the basis of his hypercarbia But he had an acute elevation of troponin at in the mid 800s which gradually diminished to 700 in 400 than 200 therefore must consider this to be an acute coronary syndrome possibly a non ST-elevation SD with troponin positivity clearly a risk of recurrence and we treated him with aspirin and heparin anticoagulation now switched to apixaban and is in normal sinus rhythm without complaint he has got stable stage II renal failure with creatinine of 1.45 maintaining good urine output good vital signs and my bedside echo revealed mild eccentric hypertrophy with reduced systolic and reduce diastolic reserve and elevated left heart filling pressures and I am going to initiate spironolactone in addition and will have cardiology follow-up to decide about invasive versus noninvasive testing to rule out coronary disease but my leaning would be if he would permit for invasive approach but this ischemic event could easily have been the tipping point for his acute respiratory failure Critical Care Time (minutes): 45 Physical Exam Vital Signs: Vital Signs: Last Vital Signs Temp 98.1 F 04/06/21 08:00 Pulse 113 H 04/06/21 11:10 Resp 15 04/06/21 10:00 BP 129/66 04/06/21 11:10 Pulse Ox 92 04/06/21 10:00 Oxygen Flow Rate 4 04/04/21 06:19 Body Mass Index 36.9 Awake and alert and no longer agitated and currently nonfocal Cardiac as above Chest with diminished bilateral breath sounds no adventitious sounds Abdomen soft no organomegaly Head CT scan was negative despite having prostate and bladder carcinomas Objective Data Labs CBC & Chem 7: 04/06/21 05:32 04/06/21 05:32 Labs: Laboratory Results - last 24 hr 04/05/21 04/05/21 04/05/21 11:41 11:41 11:41 WBC RBC Hgb Hct MCV MCH MCHC RDW Plt Count MPV Immature Gran % (Auto) Neut % (Auto) Lymph % (Auto) [place] % (Auto) Eos % (Auto) Baso % (Auto) Lymph # (Auto) [place] # (Auto) Eos # (Auto) Baso # (Auto) Abs Immat Gran (auto) Absolute Neuts (auto) Absolute Nucleated RBC Nucleated RBC % (auto) PT INR PTT (Heparin Protocol) D-Dimer High Sensitivty VBG pH VBG pCO2 VBG pO2 VBG HCO3 VBG O2 Saturation VBG Base Excess Sodium 141 Potassium 4.6 Chloride 108 Carbon Dioxide 27 Anion Gap 11 L BUN 22 H Creatinine 1.55 H Estim Creat Clear Calc 60.3 Estimated GFR 45 POC Glucose Random Glucose 248 H Calcium 9.3 Phosphorus Magnesium Troponin I High Sens 478.7 H* B-Natriuretic Peptide 89 Vitamin B12 528 Folate > 20.0 TSH 0.86 04/05/21 04/06/21 04/06/21 11:41 01:38 05:32 WBC RBC Hgb Hct MCV MCH MCHC RDW Plt Count MPV Immature Gran % (Auto) Neut % (Auto) Lymph % (Auto) [place] % (Auto) Eos % (Auto) Baso % (Auto) Lymph # (Auto) [place] # (Auto) Eos # (Auto) Baso # (Auto) Abs Immat Gran (auto) Absolute Neuts (auto) Absolute Nucleated RBC Nucleated RBC % (auto) PT 17.7 H INR 1.5 H PTT (Heparin Protocol) 58.8 D-Dimer High Sensitivty < 150 VBG pH VBG pCO2 VBG pO2 VBG HCO3 VBG O2 Saturation VBG Base Excess Sodium Potassium Chloride Carbon Dioxide Anion Gap BUN Creatinine Estim Creat Clear Calc Estimated GFR POC Glucose 209 H Random Glucose Calcium Phosphorus Magnesium Troponin I High Sens B-Natriuretic Peptide Vitamin B12 Folate TSH 04/06/21 04/06/21 04/06/21 05:32 05:32 05:32 WBC 8.8 RBC 4.66 Hgb 14.1 Hct 44.5 MCV 95.5 MCH 30.3 MCHC 31.7 RDW 13.6 Plt Count 160 D MPV 10.5 Immature Gran % (Auto) 0.3 Neut % (Auto) 69.6 Lymph % (Auto) 18.5 L [place] % (Auto) 6.6 Eos % (Auto) 4.9 H Baso % (Auto) 0.1 Lymph # (Auto) 1.6 [place] # (Auto) 0.6 Eos # (Auto) 0.4 Baso # (Auto) 0.0 Abs Immat Gran (auto) 0.03 Absolute Neuts (auto) 6.1 Absolute Nucleated RBC 0.000 Nucleated RBC % (auto) 0.0 PT INR PTT (Heparin Protocol) D-Dimer High Sensitivty VBG pH VBG pCO2 VBG pO2 VBG HCO3 VBG O2 Saturation VBG Base Excess Sodium 142 Potassium 4.3 Chloride 108 Carbon Dioxide 25 Anion Gap 13 BUN 25 H Creatinine 1.45 H Estim Creat Clear Calc 64.4 Estimated GFR 49 POC Glucose Random Glucose 216 H Calcium 9.3 Phosphorus 2.2 L Magnesium 1.2 L* Troponin I High Sens 253.6 H* B-Natriuretic Peptide Vitamin B12 Folate TSH 04/06/21 04/06/21 04/06/21 05:39 07:51 11:06 WBC RBC Hgb Hct MCV MCH MCHC RDW Plt Count MPV Immature Gran % (Auto) Neut % (Auto) Lymph % (Auto) [place] % (Auto) Eos % (Auto) Baso % (Auto) Lymph # (Auto) [place] # (Auto) Eos # (Auto) Baso # (Auto) Abs Immat Gran (auto) Absolute Neuts (auto) Absolute Nucleated RBC Nucleated RBC % (auto) PT INR PTT (Heparin Protocol) D-Dimer High Sensitivty VBG pH 7.34 VBG pCO2 48 VBG pO2 34 VBG HCO3 26 VBG O2 Saturation 52.0 VBG Base Excess 0.1 Sodium Potassium Chloride Carbon Dioxide Anion Gap BUN Creatinine Estim Creat Clear Calc Estimated GFR POC Glucose 200 H 267 H Random Glucose Calcium Phosphorus Magnesium Troponin I High Sens B-Natriuretic Peptide Vitamin B12 Folate TSH Microbiology Microbiology Results: Microbiology 04/04/21 06:31 Blood - Venous Blood Culture - Preliminary No growth after 48 hours. 04/04/21 06:31 Blood - Venous Blood Culture - Preliminary No growth after 48 hours. Progress Note: A&P Assessment and plan (1) Acute coronary syndrome with high troponin: Status: Acute (2) COPD exacerbation: Status: Acute (3) CHF exacerbation: Status: Acute (4) Elevated troponin: Status: Acute (5) Nephrolithiasis: Status: Acute (6) Complicated UTI (urinary tract infection): Status: Acute (7) Neurogenic bladder: Status: Acute (8) Prostate cancer: Status: Acute Assessment and Plan: Plan is to transfer to the floor on the above medication for cardiology follow-up and possible follow-up with Pulmonary to arrange for outpatient nocturnal CPAP Quality Stroke Does the patient have a stroke diagnosis?: No VTE Prior VTE?: No VTE Risk Level:: Medical - moderate - high VTE Device Contraindication: Treatment Not Indicated VTE Drug Contraindication: Treatment Not Indicated
--- NOTE | 2021-04-06 14:40 | MHC.CM.PN ---
with the presence of an acoustical tile drill press operator i had a lengthy discussion c pt's regarding the goals of discharge. she cares for all aspects of patient - essentially 28/11 she is not his bulk delivery driver but his . he does however get 3 hr/day , 9 am - 12 noon - m- of bulk delivery driver svcs [facility]. the [facility] used [facility] in [place], [place]. the patient's has requested more bulk delivery driver hrs through the [facility] system but have not proved fruitful thus far. he is not eligible for [employer] benefits. he has 17 yrs in the [place] and [facility] [place], [place]. the described stressful dynamics in their home, relationship and the care she provides for him. he is essentially wc bound. they have a mckenna lift, shower ch , and other equipment to make it adaptive for him to stay home. per the , the problem is his chronic state of agitation, non compliance c medications and care. she does not want him to go to STR/ SNF - she would like him to return home p recieving med adjustments that would make him peaceful and more easy to care for . she also questions his capacity to make decisions and she would like a psychiatric evaluation to determine this as well as to find out if he would benefit from an acute inpatient psych admission. she feels confident that if he was on the right medication regimen then things would go much smoother in caring for him at home and that she could do it for the long haul. at this time she is very stressed and at her limits in being his caregiver. at this time the dc plan is uncertain. pt may benefit from inpt psych - which remains to be seen or may be dc'd home c vna svcs possible. cm to cont. to follow.
[2021-04-06 16:15] LABS: Glucose, Whole Blood 210 mg/dL (60-115)
[2021-04-06] MEDS: Atorvastatin Calcium 10 MG TABLET PO (19:24)
[2021-04-06] MEDS: Apixaban 5 MG TABLET PO (19:24)
[2021-04-06] MEDS: Azithromycin 250 MG TABLET PO (19:25)
[2021-04-06] MEDS: Insulin Glargine,Hum.rec.anlog 100 UNIT/ML 10 ML VIAL 25 UNIT SUBCUT (19:31)
[2021-04-06 19:35] LABS: Glucose, Whole Blood 319 mg/dL (60-115)
[2021-04-07] VITALS (9 sets, daily range): BP systolic 124–153; BP diastolic 64–78; PULSE 69–97; RESP 16–20; TEMP 35.9–36.9; O2SAT 92–96
[2021-04-07 06:13] LABS: MANUAL DIFF FLAG NO
[2021-04-07 06:20] LABS: VBG Base Excess 1.4 mmol/L; VBG HCO3 27 mmol/L (22-26); VBG pCO2 50 mmHg; VBG pH 7.34 (7.32-7.43); VBG pO2 59 mmHg
[2021-04-07 06:20] LABS: Venous Blood Gas Refer to POC result
[2021-04-07 06:31] LABS: INTERNATIONAL NORM RATIO 1.7 (0.9-1.1); Prothrombin Time 19.9 SEC (9.9-13.0)
[2021-04-07 07:08] LABS: Basophils Percent Auto 0.1 % (0-2); Eosinophils Absolute Auto 0.4 X10*3/uL (0.0-0.4); Hematocrit 41.6 % (42.0-52.0); Hemoglobin 13.4 g/dl (14.0-18.0); Imm Gran Abs Auto 0.01 X10*3/uL (0.00-0.03); Imm Gran Pct Auto 0.1 % (0.0-0.4); Lymphocytes Absolute Auto 1.5 X10*3/uL (1.2-4.9); Lymphocytes Percent Auto 21.3 % (20-40); Mean Corpuscular HGB Conc 32.2 g/dl (31.0-36.0); Mean Corpuscular Hemoglobin 30.1 pg (27.0-33.0); Mean Corpuscular Volume 93.5 fL (80.0-98.0); Mean Platelet Volume 10.5 fL (9.4-12.4); Monocytes Absolute Auto 0.6 X10*3/uL (0.1-1.2); Monocytes Percent Auto 7.9 % (2-11); Neutrophils Absolute Auto 4.5 x10*3/uL (2.0-8.3); Neutrophils Percent Auto 65.6 % (45-73); Platelet Count 164 X10*3/uL (160-400); Red Blood Count 4.45 X10*6/uL (4.60-5.80); Red Cell Distribution Width 13.8 % (11.0-16.0); White Blood Count 6.9 X10*3/uL (4.8-10.8)
[2021-04-07 07:21] LABS: Glucose, Whole Blood 265 mg/dL (60-115)
[2021-04-07 07:23] LABS: Anion Gap 14 (12-20); Blood Urea Nitrogen 24 mg/dL (9-16); Calcium 9.4 mg/dL (8.4-10.2); Carbon Dioxide 24 mmol/L (22-29); Chloride 109 mmol/L (96-108); Creatinine Clr Calc Pharmacy 65.5; Estimated Glomerular Filt Rate 51; Glucose Random 284 mg/dL (60-115); Magnesium 1.3 mg/dL (1.6-2.6); Phosphorus 2.8 mg/dL (2.7-4.5); Sodium 143 mmol/L (135-145)
[2021-04-07] MEDS: Insulin Lispro 100 UNIT/ML 3 ML VIAL SUBCUT ×4 (07:48→20:03)
[2021-04-07] MEDS: Apixaban 5 MG TABLET PO (07:48)
[2021-04-07] MEDS: Spironolactone 25 MG TABLET PO (07:48)
[2021-04-07] MEDS: Aspirin Enteric Coated 81 MG TABLET.DR PO (07:49)
[2021-04-07] MEDS: Magnesium Sulfate/H2O 2 GM/50 ML PIGGYBACK IV (09:18)
[2021-04-07] MEDS: clonazePAM 1 MG TABLET PO ×3 (09:18→20:03)
[2021-04-07] MEDS: OLANZapine 7.5 MG TABLET 15 MG PO ×2 (09:18→20:03)
--- NOTE | 2021-04-07 10:17 | PM.CNCAR ---
History of Present Illness History of Present Illness Date of Service: 04/07/21 Chief complaint: Acute respiratory failure Narrative: This is a cardiology consultation regarding elevated troponins. Multiple medical comorbidities including obesity, obstructive sleep apnea, diabetes, hypertension, chronic kidney disease, COPD,? CHF, CVA, PTSD based on H&P. It seems that he was admitted with hypercarbic respiratory failure. In this setting, he was treated in the ICU and seems much better and now in the floor. It seems that he was treated with BiPAP. He also had been given antibiotics, diuretics. Troponins were elevated and that led to this consultation. When I questioned the patient regarding symptoms, he states that he had some chest pain upon arrival but seems very vague. His main complaint was that he was short of breath and that is improved since. No known coronary disease according to him but apparently underwent a stress test many years ago, unknown findings. Minimal ambulation at baseline. He was smoker till admission. Review of Systems Review of Systems: Yes all other systems are reviewed and are negative Cardiovascular: Cardiovascular: Reports as per HPI, Reports no additional cardiovascular complaints, Denies acrocyanosis, Denies cool extremities, Denies painful fingertips, Reports chest pain, Denies chest pain at rest, Denies diaphoresis, Denies syncope, Denies irregular heart rhythm, Denies claudication, Denies leg edema, Denies lightheadedness, Denies palpitations and Reports dyspnea Respiratory: Respiratory: Reports dyspnea Neurologic: Denies syncope Endocrine: Endocrine: Denies palpitations [facility] Past Medical History Medical History Complicated UTI (urinary tract infection) Malignant neoplasm of overlapping sites of bladder Nephrolithiasis Neurogenic bladder Prostate cancer Family History Family History (Updated 04/07/21 @ 10:21 by Thanh Herman MD) Father CAD (coronary artery disease) Social History Social History Household Members: Spouse Housing: Unknown / Unable to assess Unable to assess alcohol history related to: Unable to respond and Unknown Patient Tobacco Use Status: Tobacco use Unknown Use of substances other than those prescribed or required for medical reasons: Unable to respond Currently Displaying Signs/Symptoms of Drug Intoxication Withdrawal: No Spiritual Healthcare Practices: unable to assess Congregation Healthcare Practices: unable to assess Cultural Healthcare Practices: unable to assess Advance Directives: No Advance Directives Information Provided: Yes Do you have thoughts of harming others: None Do you have a plan to hurt others: No Plan Recently lost weight without trying: Unsure How much weight loss: Unsure Nutrition Risks: On aspiration precautions Poor oral hygiene: Yes service: Yes Current occupational status: disabled Meds Allergies Allergy/AdvReac Type Severity Reaction Status Date / Time quetiapine [From Seroquel] Allergy Mild LEG Verified 04/06/21 19:22 SWELLING onion [Onion] AdvReac Unknown NAUSEA & Verified 04/06/21 19:22 VOMITING PEPPERS AdvReac Mild NAUSEA & Uncoded 01/23/20 16:37 VOMITING Active Medications: Current Medications Apixaban (Apixaban 5 Mg Tablet) 5 mg PO BID [facility] Last Admin: 04/07/21 07:48 Dose: 5 mg Documented by: Aspirin (Aspirin Enteric Coated 81 Mg Tablet.) 81 mg PO DAILY [facility] Last Admin: 04/07/21 07:49 Dose: 81 mg Documented by: Atorvastatin Calcium (Atorvastatin Calcium 10 Mg Tablet) 10 mg PO BEDTIME [facility] Last Admin: 04/06/21 19:24 Dose: 10 mg Documented by: Azithromycin (Azithromycin 250 Mg Tablet) 250 mg PO Q24H HUGO Stop: 04/08/21 21:01 Last Admin: 04/06/21 19:25 Dose: 250 mg Documented by: Clonazepam (Clonazepam 1 Mg Tablet) 1 mg PO TID [facility] Last Admin: 04/07/21 09:18 Dose: 1 mg Documented by: Insulin Glargine (Insulin Glargine,Hum.Rec.Anlog 100 Unit/Ml 10 Ml Vial) 25 unit SUBCUT BEDTIME [facility] Last Admin: 04/06/21 19:31 Dose: 25 unit Documented by: Insulin Human Lispro (Insulin Lispro 100 Unit/Ml 3 Ml Vial) 0 unit SUBCUT QIDACHS [facility]; Protocol Last Admin: 04/07/21 07:48 Dose: 6 unit Documented by: Lorazepam (Lorazepam 2 Mg/Ml Vial) 0.5 mg IVPUSH ONCE PRN PRN Reason: agitation Last Admin: 04/05/21 11:51 Dose: 0.5 mg Documented by: Midazolam HCl (Midazolam Hcl/Pf 2 Mg/2 Ml Vial) 2 mg IVPUSH Q15M PRN PRN Reason: anxiety/restlessness Last Admin: 04/05/21 14:25 Dose: 2 mg Documented by: Patient Own Med ( Buprenorphine [ Butrans] 5 Mcg/Hour Patch) 1 each TRANSDERMA We@0900 [facility] Last Admin: 04/07/21 09:18 Dose: 1 each Documented by: Olanzapine (Olanzapine 7.5 Mg Tablet) 15 mg PO BID [facility] Last Admin: 04/07/21 09:18 Dose: 15 mg Documented by: Pharmacy Consult (Consult Rx Perform Med Rec) 1 each MISCELLANE ONCE PRN PRN Reason: Consult order Spironolactone (Spironolactone 25 Mg Tablet) 25 mg PO DAILY [facility]; Protocol Last Admin: 04/07/21 07:48 Dose: 25 mg Documented by: Home Medications Medication Instructions Recorded Confirmed Last Taken Type aspirin 81 mg tablet,delayed 81 mg PO DAILY 04/04/21 04/04/21 04/03/21 History release atorvastatin 20 mg tablet 10 mg PO BEDTIME 04/04/21 04/04/21 04/03/21 History buprenorphine 5 mcg/hour weekly 1 patch TRANSDERMAL Q7D 04/04/21 04/04/21 Unknown History transdermal patch (Butrans) clonazepam 1 mg tablet 1 mg PO TID 04/04/21 04/04/21 04/03/21 History doxepin 6 mg tablet (Silenor) 6 mg PO BEDTIME PRN 04/04/21 04/04/21 04/03/21 History hydroxyzine pamoate 25 mg capsule 25 mg PO BID PRN 04/04/21 04/04/21 04/03/21 History insulin glargine 100 unit/mL (3 35 unit SUBCUT BEDTIME 04/04/21 04/04/21 04/04/21 History mL) subcutaneous pen (Lantus Solostar U-100 Insulin) insulin lispro 100 unit/mL 12 unit SUBCUT TID 04/04/21 04/04/21 04/03/21 History subcutaneous pen lamotrigine 25 mg tablet 25 mg PO DAILY 04/04/21 04/04/21 04/03/21 History lisinopril 10 mg tablet 10 mg PO DAILY 04/04/21 04/04/21 04/03/21 History multivitamin 1 tab PO DAILY 04/04/21 04/04/21 04/03/21 History olanzapine 15 mg tablet 15 mg PO BID 04/04/21 04/04/21 04/03/21 History omeprazole 20 mg capsule,delayed 20 mg PO DAILY@0630 04/04/21 04/04/21 04/03/21 History release venlafaxine 37.5 mg 37.5 mg PO DAILY 04/04/21 04/04/21 04/03/21 History capsule,extended release 24 hr Physical Exam Vital Signs: Vital Signs: Last Vital Signs Temp 98.4 F 04/07/21 07:08 Pulse 80 04/07/21 07:48 Resp 18 04/07/21 07:08 BP 136/75 04/07/21 07:48 Pulse Ox 96 04/07/21 07:08 Oxygen Flow Rate 4 04/04/21 06:19 Body Mass Index 36.9 Const: General: cooperative and no acute distress HENMT: Other: Unremarkable Neck: Neck: Yes normal visual inspection Chest: Chest palpation & inspection: normal inspection of the chest Resp: Other: wheeze Cardio: Jugular venous distension: no JVD Palpation: normal PMI Heart sounds: S1 normal heart sound present, S2 normal heart sound present, no gallops, no murmurs and no rubs GI: Palpation (GI): Soft to palpation Back/Spine/Pelvis: Other: unremarkable Skin: General skin exam: no rashes or lesions noted Neuro: Cranial nerves: Yes Other cranial nerve findings present Extrem: General: Yes edema (2+ edema) Psych: Mental Status: other Objective Labs and Meds Result diagrams: 04/07/21 06:08 04/07/21 06:08 Lab results: Laboratory Results - last 24 hr 04/06/21 04/06/21 04/06/21 11:06 16:08 19:28 WBC RBC Hgb Hct MCV MCH MCHC RDW Plt Count MPV Immature Gran % (Auto) Neut % (Auto) Lymph % (Auto) [place] % (Auto) Eos % (Auto) Baso % (Auto) Lymph # (Auto) [place] # (Auto) Eos # (Auto) Baso # (Auto) Abs Immat Gran (auto) Absolute Neuts (auto) Absolute Nucleated RBC Nucleated RBC % (auto) PT INR VBG pH VBG pCO2 VBG pO2 VBG HCO3 VBG O2 Saturation VBG Base Excess Sodium Potassium Chloride Carbon Dioxide Anion Gap BUN Creatinine Estim Creat Clear Calc Estimated GFR POC Glucose 267 H 210 H 319 H Random Glucose Fasting Glucose Calcium Phosphorus Magnesium 04/07/21 04/07/21 04/07/21 06:08 06:08 06:08 WBC 6.9 RBC 4.45 L Hgb 13.4 L Hct 41.6 L MCV 93.5 MCH 30.1 MCHC 32.2 RDW 13.8 Plt Count 164 MPV 10.5 Immature Gran % (Auto) 0.1 Neut % (Auto) 65.6 Lymph % (Auto) 21.3 [place] % (Auto) 7.9 Eos % (Auto) 5.0 H Baso % (Auto) 0.1 Lymph # (Auto) 1.5 [place] # (Auto) 0.6 Eos # (Auto) 0.4 Baso # (Auto) 0.0 Abs Immat Gran (auto) 0.01 Absolute Neuts (auto) 4.5 Absolute Nucleated RBC 0.000 Nucleated RBC % (auto) 0.0 PT 19.9 H INR 1.7 H VBG pH VBG pCO2 VBG pO2 VBG HCO3 VBG O2 Saturation VBG Base Excess Sodium 143 Potassium 4.0 Chloride 109 H Carbon Dioxide 24 Anion Gap 14 BUN 24 H Creatinine 1.40 Estim Creat Clear Calc 65.5 Estimated GFR 51 POC Glucose Random Glucose 284 H Fasting Glucose Calcium 9.4 Phosphorus 2.8 Magnesium 1.3 L* 04/07/21 04/07/21 04/07/21 06:08 06:14 07:11 WBC RBC Hgb Hct MCV MCH MCHC RDW Plt Count MPV Immature Gran % (Auto) Neut % (Auto) Lymph % (Auto) [place] % (Auto) Eos % (Auto) Baso % (Auto) Lymph # (Auto) [place] # (Auto) Eos # (Auto) Baso # (Auto) Abs Immat Gran (auto) Absolute Neuts (auto) Absolute Nucleated RBC Nucleated RBC % (auto) PT INR VBG pH 7.34 VBG pCO2 50 VBG pO2 59 VBG HCO3 27 H VBG O2 Saturation 85.0 VBG Base Excess 1.4 Sodium Cancelled Potassium Cancelled Chloride Cancelled Carbon Dioxide Cancelled Anion Gap Cancelled BUN Cancelled Creatinine Cancelled Estim Creat Clear Calc Cancelled Estimated GFR Cancelled POC Glucose 265 H Random Glucose Fasting Glucose Cancelled Calcium Cancelled Phosphorus Magnesium Cancelled ECG Interpretation: EKG with sinus rhythm at 98/Min; slight AL prolongation with right bundle-branch block pattern. Assessment and Plan (1) NSTEMI (non-ST elevated myocardial infarction): Status: Acute (2) COPD exacerbation: Status: Acute Pertinent data reviewed. Echocardiogram with LVEF of about 40% but difficult study. There was grade 2 diastolic dysfunction as well as slight enlargement of the right ventricle. Labs with creatinine of 1.4 although it was higher on arrival at 1.57. Troponins are 894, 715, 478 and 253. Chest x-ray reported to have interstitial prominence which could reflect bronchial wall thickening in the setting of acute or chronic bronchitis. Overall, multiple medical comorbidities; likely demand related NSTEMI; high pretest probability for coronary disease. Treat with aspirin, high-dose statins. Discussed with him about a diagnostic cardiac catheterization and he would like to think about it. Will follow with you tomorrow. Procedures Date of Service Date of Service: 04/07/21
--- NOTE | 2021-04-07 10:35 | MHC.SL.DTX ---
Dysphagia Diet modifications: Last documented Solid diet consistencies: Chopped/Advanced (NDD3) Last documented Liquid consistency: Thin Last documented Medication Administration: whole with thin liquids Changes made to current diet?: No Liquid Consistency and Strategies: Liquid Intake Recommendation: Thin Compensatory Strategies for Safe Swallow: Small Sips No Straws Compensatory Strategies for Safe Swallow(b): Sitting Upright (90 deg) No Straw Liquids from Cup Small Bites and Sips Solid Food Consistency: Dietary Recommendations: Chopped/Advanced (NDD3) Additional Modifications to Solids: Pt requires full assist for all food and liquid consumption due to manual impairment. Oral Medication Intake: Whole with Liquid Strategies and Precautions to be Taken for Safe Swallow: Sitting Upright (90 deg) No Straw Liquids from Cup Small Bites and Sips Supervision While Eating and/Drinking: Total Assistance Foods to Avoid: Foods that require ample chewing for consumption Swallowing Recommended Treatments: Compens. Strategy Educat. 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 Continue CIDER MAKER TX X1 to monitor toleration of recommended diet. Frequency/Duration: Date Range for Service Req: Timeline to reassess: Additional Comments: Pt is safely tolerating his current diet consistency of CHOPPED solids and THIN liquids. No further ST is warranted at this time. Pt to be discharged from ST this date. Please re-refer should any new concerns be noted. Rubble Placer Clinican/Clinical Fellow: No Supervisory Statement: I have reviewed and agree with the student/clinical fellow's documentation: N/A Speech Language Pathologist: Alysa Melgar M.A., CCC-CIDER MAKER
[2021-04-07 11:06] LABS: Glucose, Whole Blood 238 mg/dL (60-115)
--- NOTE | 2021-04-07 11:19 | MHC.CM.PN ---
Per ROUNDS discussion, Patient is not yet medically cleared for dc (Cardiology discussed possibility of diagnostic Cardiac Catheterization). Patient's goal for dc is to return home and resume services and CM will follow for possible need to adjust the dc plan.
--- NOTE | 2021-04-07 11:37 | P.PNIM_ITS ---
Subjective Subjective Date of Service: 04/07/21 Interval History: the patient was seen and evaluated this morning Laying in bed, feels better overall but still on 2 L of oxygen Low magnesium this morning Denies any fever, chills or shortness of breath No reported other overnight events. Systemic review: No fever, chills or weakness No chest pain, palpitation No shortness of breath or coughing No abdominal pain, nausea or vomiting No urinary symptoms No any rash or wounds Physical Exam Vital Signs: Vital Signs: Last Vital Signs Temp 97.4 F 04/07/21 10:52 Pulse 87 04/07/21 10:52 Resp 18 04/07/21 10:52 BP 140/78 H 04/07/21 10:52 Pulse Ox 96 04/07/21 10:52 Oxygen Flow Rate 4 04/04/21 06:19 BMI result Body Mass Index 36.9 Const: Other: Constitutional : Alert, interactive, on oxygen supplement Neck : Normal inspection, Supple Cardiovascular : RRR, S1 S2, no lower extremity edema Respiratory : Decreased bilateral air entry, no crackles, bilateral fine wheezes with no rhonchi Gastrointestinal: soft, lax, Normal bowel sounds, Non tender Skin : Warm, Dry Neurological : Alert & oriented x3, No focal deficit Objective Data Active Medications Aspirin (Aspirin Enteric Coated 81 Mg Tablet.) 81 mg PO DAILY [facility] Last Admin: 04/07/21 07:49 Dose: 81 mg Documented by: CHINYERE Atorvastatin Calcium (Atorvastatin Calcium 80 Mg Tablet) 80 mg PO BEDTIME [facility] Azithromycin (Azithromycin 250 Mg Tablet) 250 mg PO Q24H [facility] Stop: 04/08/21 21:01 Last Admin: 04/06/21 19:25 Dose: 250 mg Documented by: DAHIANA Clonazepam (Clonazepam 1 Mg Tablet) 1 mg PO TID [facility] Last Admin: 04/07/21 09:18 Dose: 1 mg Documented by: CHINYERE Insulin Glargine (Insulin Glargine,Hum.Rec.Anlog 100 Unit/Ml 10 Ml Vial) 25 unit SUBCUT BEDTIME [facility] Last Admin: 04/06/21 19:31 Dose: 25 unit Documented by: DAHIANA Insulin Human Lispro (Insulin Lispro 100 Unit/Ml 3 Ml Vial) 0 unit SUBCUT QIDACHS [facility]; Protocol Last Admin: 04/07/21 07:48 Dose: 6 unit Documented by: CHINYERE Lorazepam (Lorazepam 2 Mg/Ml Vial) 0.5 mg IVPUSH ONCE PRN PRN Reason: agitation Last Admin: 04/05/21 11:51 Dose: 0.5 mg Documented by: MOMO Midazolam HCl (Midazolam Hcl/Pf 2 Mg/2 Ml Vial) 2 mg IVPUSH Q15M PRN PRN Reason: anxiety/restlessness Last Admin: 04/05/21 14:25 Dose: 2 mg Documented by: MOMO Patient Own Med ( Buprenorphine [ Butrans] 5 Mcg/Hour Patch) 1 each TRANSDERMA We@0900 [facility] Last Admin: 04/07/21 09:18 Dose: 1 each Documented by: CHINYERE Olanzapine (Olanzapine 7.5 Mg Tablet) 15 mg PO BID [facility] Last Admin: 04/07/21 09:18 Dose: 15 mg Documented by: CHINYERE Pharmacy Consult (Consult Rx Perform Med Rec) 1 each MISCELLANE ONCE PRN PRN Reason: Consult order Spironolactone (Spironolactone 25 Mg Tablet) 25 mg PO DAILY [facility]; Protocol Last Admin: 04/07/21 07:48 Dose: 25 mg Documented by: CHINYERE Labs CBC & Chem 7: 04/07/21 06:08 04/07/21 06:08 Labs: Laboratory Results - last 24 hr 04/06/21 04/06/21 04/07/21 16:08 19:28 06:08 MCV 93.5 MCH 30.1 MCHC 32.2 RDW 13.8 Plt Count 164 MPV 10.5 Immature Gran % (Auto) 0.1 Neut % (Auto) 65.6 Lymph % (Auto) 21.3 [place] % (Auto) 7.9 Eos % (Auto) 5.0 H Baso % (Auto) 0.1 Lymph # (Auto) 1.5 [place] # (Auto) 0.6 Eos # (Auto) 0.4 Baso # (Auto) 0.0 Abs Immat Gran (auto) 0.01 Absolute Neuts (auto) 4.5 Absolute Nucleated RBC 0.000 Nucleated RBC % (auto) 0.0 PT INR VBG pH VBG pCO2 VBG pO2 VBG HCO3 VBG O2 Saturation VBG Base Excess Anion Gap Estim Creat Clear Calc Estimated GFR POC Glucose 210 H 319 H Random Glucose Fasting Glucose Calcium Phosphorus Magnesium 04/07/21 04/07/21 04/07/21 06:08 06:08 06:08 MCV MCH MCHC RDW Plt Count MPV Immature Gran % (Auto) Neut % (Auto) Lymph % (Auto) [place] % (Auto) Eos % (Auto) Baso % (Auto) Lymph # (Auto) [place] # (Auto) Eos # (Auto) Baso # (Auto) Abs Immat Gran (auto) Absolute Neuts (auto) Absolute Nucleated RBC Nucleated RBC % (auto) PT 19.9 H INR 1.7 H VBG pH VBG pCO2 VBG pO2 VBG HCO3 VBG O2 Saturation VBG Base Excess Anion Gap 14 Cancelled Estim Creat Clear Calc 65.5 Cancelled Estimated GFR 51 Cancelled POC Glucose Random Glucose 284 H Fasting Glucose Cancelled Calcium 9.4 Cancelled Phosphorus 2.8 Magnesium 1.3 L* Cancelled 04/07/21 04/07/21 04/07/21 06:14 07:11 10:54 MCV MCH MCHC RDW Plt Count MPV Immature Gran % (Auto) Neut % (Auto) Lymph % (Auto) [place] % (Auto) Eos % (Auto) Baso % (Auto) Lymph # (Auto) [place] # (Auto) Eos # (Auto) Baso # (Auto) Abs Immat Gran (auto) Absolute Neuts (auto) Absolute Nucleated RBC Nucleated RBC % (auto) PT INR VBG pH 7.34 VBG pCO2 50 VBG pO2 59 VBG HCO3 27 H VBG O2 Saturation 85.0 VBG Base Excess 1.4 Anion Gap Estim Creat Clear Calc Estimated GFR POC Glucose 265 H 238 H Random Glucose Fasting Glucose Calcium Phosphorus Magnesium Microbiology Microbiology Results: Microbiology 04/04/21 06:31 Blood Culture - Preliminary Blood - Venous No growth after 48 hours. 04/04/21 06:31 Blood Culture - Preliminary Blood - Venous No growth after 48 hours. Assessment and Plan (1) NSTEMI (non-ST elevated myocardial infarction): Status: Acute (2) COPD exacerbation: Status: Acute (3) Acute respiratory failure with hypoxia and hypercapnia: Status: Acute Assessment and Plan: 65-year-old long standing 3 pack-a-day smoker with severe COPD probable features of sleep apnea and obesity hypoventilation presented with acute on chronic hypercarbic and hypoxic respiratory failure and altered mental status Acute hypoxic hypercapnic respiratory failure Secondary to COPD exacerbation Responded to BiPAP therapy in ICU Still on 2 L of oxygen, to wean down as tolerated Continue azithromycin, steroids, nebulizers Newly diagnosed Systolic CHF echo revealed mild eccentric hypertrophy with reduced systolic to 40% and reduce diastolic reserve and elevated left heart filling pressures Manager [employer] started spironolactone NSTEMI Troponin elevated to mid 80s 100s Treated in ICU with aspirin and heparin Cardiology input appreciated , aspirin and increase atorvastatin Patient will think about intervention Hypomagnesemia 2 mg of 1.5 this morning Replacement given, to monitor CKD stage II Stable DVT PPX Lovenox Quality Stroke Does the patient have a stroke diagnosis?: No VTE Prior VTE?: No VTE Risk Level:: Medical - moderate - high VTE Device Contraindication: Treatment Not Indicated VTE Drug Contraindication: Treatment Not Indicated
--- NOTE | 2021-04-07 12:11 | MHC.CM.PN ---
CM met with Patient and his at bedside.Per this discussion, a referral has been made to [facility] for home PT and RN.[facility] and is working towards getting those services hours increased.CM will follow.
[2021-04-07 16:25] LABS: Glucose, Whole Blood 230 mg/dL (60-115)
[2021-04-07 19:46] LABS: Glucose, Whole Blood 217 mg/dL (60-115)
[2021-04-07] MEDS: Atorvastatin Calcium 80 MG TABLET PO (20:03)
[2021-04-07] MEDS: Azithromycin 250 MG TABLET PO (20:03)
[2021-04-07] MEDS: Insulin Glargine,Hum.rec.anlog 100 UNIT/ML 10 ML VIAL 25 UNIT SUBCUT (20:04)
[2021-04-08 03:40] VITALS: BP 154/73; PULSE 82; RESP 18; TEMP 36.3; O2SAT 96
--- NOTE | 2021-04-08 06:24 | PC.NURSE ---
0600; Jay catheter emptied for 400 mls yellow urine. Jay catheter removed, patient tolerated well, first due to void at 12:00pm. Will notify day shift Rn.
[2021-04-08 06:36] LABS: MANUAL DIFF FLAG NO
[2021-04-08 06:38] LABS: Venous Blood Gas Refer to POC result
[2021-04-08 06:39] LABS: VBG Base Excess 4.4 mmol/L; VBG HCO3 31 mmol/L (22-26); VBG pCO2 57 mmHg; VBG pH 7.34 (7.32-7.43); VBG pO2 45 mmHg
[2021-04-08 06:57] LABS: Magnesium 1.5 mg/dL (1.6-2.6)
[2021-04-08 06:58] LABS: Basophils Percent Auto 0.1 % (0-2); Eosinophils Absolute Auto 0.6 X10*3/uL (0.0-0.4); Hematocrit 43.1 % (42.0-52.0); Hemoglobin 13.8 g/dl (14.0-18.0); Imm Gran Abs Auto 0.02 X10*3/uL (0.00-0.03); Imm Gran Pct Auto 0.3 % (0.0-0.4); Lymphocytes Absolute Auto 1.8 X10*3/uL (1.2-4.9); Lymphocytes Percent Auto 24.9 % (20-40); Mean Corpuscular Hemoglobin 30.1 pg (27.0-33.0); Mean Corpuscular Volume 94.1 fL (80.0-98.0); Mean Platelet Volume 10.3 fL (9.4-12.4); Monocytes Absolute Auto 0.6 X10*3/uL (0.1-1.2); Monocytes Percent Auto 7.8 % (2-11); Neutrophils Absolute Auto 4.1 x10*3/uL (2.0-8.3); Neutrophils Percent Auto 58.9 % (45-73); Platelet Count 141 X10*3/uL (160-400); Red Blood Count 4.58 X10*6/uL (4.60-5.80); Red Cell Distribution Width 13.9 % (11.0-16.0)
[2021-04-08 07:02] LABS: INTERNATIONAL NORM RATIO 1.5 (0.9-1.1); Prothrombin Time 16.8 SEC (9.9-13.0)
[2021-04-08 07:11] LABS: Anion Gap 9 (12-20); Blood Urea Nitrogen 22 mg/dL (9-16); Calcium 9.3 mg/dL (8.4-10.2); Carbon Dioxide 29 mmol/L (22-29); Chloride 107 mmol/L (96-108); Estimated Glomerular Filt Rate 55; Glucose Random 261 mg/dL (60-115); Magnesium 1.5 mg/dL (1.6-2.6); Phosphorus 3.2 mg/dL (2.7-4.5); Potassium 4.4 mmol/L (3.3-5.1); Sodium 141 mmol/L (135-145)
[2021-04-08 07:24] VITALS: BP 123/64; PULSE 79; RESP 18; TEMP 36.4; O2SAT 97
[2021-04-08 08:05] LABS: Glucose, Whole Blood 222 mg/dL (60-115)
[2021-04-08 08:30] VITALS: BP 123/64; PULSE 79
[2021-04-08] MEDS: Spironolactone 25 MG TABLET PO (08:30)
[2021-04-08] MEDS: OLANZapine 7.5 MG TABLET 15 MG PO ×2 (08:30→21:10)
[2021-04-08] MEDS: Magnesium Oxide 400 MG TABLET PO ×2 (08:30→17:21)
[2021-04-08] MEDS: Magnesium Sulfate/H2O 2 GM/50 ML PIGGYBACK IV (08:30)
[2021-04-08] MEDS: clonazePAM 1 MG TABLET PO ×3 (08:30→21:11)
[2021-04-08] MEDS: Aspirin Enteric Coated 81 MG TABLET.DR PO (08:30)
[2021-04-08] MEDS: Insulin Lispro 100 UNIT/ML 3 ML VIAL SUBCUT ×4 (08:30→21:10)
--- NOTE | 2021-04-08 10:22 | P.DS_ITS ---
DS: Providers Provider Date of Service: 04/08/21 Date of admission: 04/04/21 09:12 Primary care physician: Unknown Physician Consults: 04/06/21 10:10 Consult to Cardiology Routine Consulting Provider: Thanh Herman Reason for consultation: [place] DS: Diagnosis Discharge Diagnosis (1) NSTEMI (non-ST elevated myocardial infarction): Status: Acute (2) COPD exacerbation: Status: Acute (3) Acute respiratory failure with hypoxia and hypercapnia: Status: Acute (4) CHF exacerbation: Status: Acute DS: Summary Hospital Course Hospital Course: Admission note HPI The patient is a 65-year-old male with PMH of obesity, GAY, diabetes, hypertension, CKD (baseline 1.7), COPD (not on oxygen at home, no prior evidence of CO2 retention), HLD, CAD, ? prior MN, CHF, ? CVA, anemia, PTSD presumably secondary to his time in the , and bipolar disorder/depression.? In 2009, the patient had an episode of ascending cholangitis secondary to a common bile duct stone, with pancreatitis and severe sepsis. 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 H&P from 08/17/19 reports that the patient had at previous times variously been on olanzapine, Klonopin, venlafaxine, and Seroquel. The patient lives with his at home.? He is a current daily smoker. The patient was BIBA early this morning bec of SOB and chest pain.? On arrival to the ED, the patient was reportedly drowsy but arousable and oriented x4.? He was in no acute distress. ?Heart rate was 92, blood pressure 141/72, respiratory rate was 14, with sat of 92% on 4 L oxygen by nasal cannula.? Temperature was 97.2 degrees.? The general physical exam was notable for scattered rhonchi and mild expiratory wheeze and rales.? He had mild pitting edema of the lower extremities, with venous stasis changes.? He had no fingers on either hand. Labs in the ED were notable for a white count of 7.8, hemoglobin of 14 (baseline 11).? BUN/creatinine were 16/1.57 (baseline 20/1.6), bicarb was 25, random glucose was 234, lactic acid was 0.8.? BNP was 158 (was 104 in 2019).? A venous blood gas showed 7.18/70/-3.? U/a was negative.? CXR (my reading) suggests mild CHF and/or chronic lung disease.? The lungs do not show hyperinflated emphysematous lung dz.? The EKG showed new RBBB (IWMI seen in prior EKG was not seen on today?s EKG). The patient was given Lasix + antibiotics.? The troponin came back elevated at 894, with the repeat 715.? I was asked and recommended heparin while we waited for cardiology input.? I saw the patient in the ED at about 9am.? He was breathing easy on BiPAP but was already becoming somewhat agitated.? Admission to the ICU was ordered, with the plan to start him on Precedex, in addition to BiPAP. On arrival to the ICU, the patient was moderately disoriented and mildly agitated.? HR was 68, SR.? BP 156/80.? On BiPAP 14/7/35%, RR was 14-17, Vt 680- 950, Ve 10-12L, SpO2 98%.? We changed him over to CPAP 10/30%.? RR was 16-20, Vt 600-1000cc, Ve 10-13L.? The patient was normal thermic.? Pupils were equal round, about 3 mm.? There is no jugular venous distention with the head of bed at about 40 degrees.? Chest was clear to auscultation, with distant breath sounds. ?The patient does have an occasional wet cough. ?There were no wheezes.? The expiratory phase was normal.? Heart tones were soft.? Regular rate and rhythm, with normal-sounding S1 and S2, with no murmur or gallops.? The abdomen was but obese and benign.? The lower extremities had mild pretibial erythema that looks chronic, with no suggestion of acute infection.? There is about 1+ pretibial edema.? No obvious central edema. Hospital course Patient was treated in ICU and transferred to medical floor after he became stabilized on room air. Oxygen was weaned down to room air at the day of discharge. Treated with azithromycin, steroids and nebulizer with plan to continue for 2 more days at the time of discharge. Evaluated by Cardiology for picture of NSTEMI and newly diagnosed systolic CHF as an echo revealed mild eccentric hypertrophy with reduced systolic to 40% and reduce diastolic reserve and elevated left heart filling pressures. As mentioned above, troponin increased to 800 at time of presentation to the hospital then continue to drop down. Treated with IV heparin in ICU along with baby aspirin. Bundle Packer requested to increase his atorvastatin to 80 mg daily and to continue aspirin also started spironolactone with a plan to transfer to [facility] for an angiogram. The patient was treated for hypomagnesemia with IV magnesium supplement. Started on oral supplement to be discharged on. Treated for COPD exacerbation with steroids and azithromycin. Two more days to go. He he carries probable features of GAY and will benefit from doing a sleep study as outpatient in the near future. Time Spent with Patient Time attestation: Total time spent providing and/or coordinating discharge services: Discharge coordination time: Greater than 30 minutes Quality: Stroke Does the patient have a stroke diagnosis?: No Physical Exam Vital Signs: Vital Signs: Last Vital Signs Temp 97.6 F 04/08/21 07:24 Pulse 79 04/08/21 08:30 Resp 18 04/08/21 07:24 BP 123/64 04/08/21 08:30 Pulse Ox 97 04/08/21 07:24 Oxygen Flow Rate 4 04/04/21 06:19 BMI result Body Mass Index 36.9 Const: Other: Constitutional : Alert, interactive, on oxygen supplement Neck : Normal inspection, Supple Cardiovascular : RRR, S1 S2, no lower extremity edema Respiratory : Decreased bilateral air entry, no crackles, bilateral fine whe ezes with no rhonchi Gastrointestinal: soft, lax, Normal bowel sounds, Non tender Skin : Warm, Dry Neurological : Alert & oriented x3, No focal deficit DS: Data Data Completed and Pending Labs on day of discharge: Laboratory Results - last 24 hr 04/07/21 04/07/21 04/07/21 10:54 16:18 19:43 WBC RBC Hgb Hct MCV MCH MCHC RDW Plt Count MPV Immature Gran % (Auto) Neut % (Auto) Lymph % (Auto) [place] % (Auto) Eos % (Auto) Baso % (Auto) Lymph # (Auto) [place] # (Auto) Eos # (Auto) Baso # (Auto) Abs Immat Gran (auto) Absolute Neuts (auto) Absolute Nucleated RBC Nucleated RBC % (auto) PT INR VBG pH VBG pCO2 VBG pO2 VBG HCO3 VBG O2 Saturation VBG Base Excess Sodium Potassium Chloride Carbon Dioxide Anion Gap BUN Creatinine Estim Creat Clear Calc Estimated GFR POC Glucose 238 H 230 H 217 H Random Glucose Calcium Phosphorus Magnesium 04/08/21 04/08/21 04/08/21 06:28 06:28 06:28 WBC 7.0 RBC 4.58 L Hgb 13.8 L Hct 43.1 MCV 94.1 MCH 30.1 MCHC 32.0 RDW 13.9 Plt Count 141 L MPV 10.3 Immature Gran % (Auto) 0.3 Neut % (Auto) 58.9 Lymph % (Auto) 24.9 [place] % (Auto) 7.8 Eos % (Auto) 8.0 H Baso % (Auto) 0.1 Lymph # (Auto) 1.8 [place] # (Auto) 0.6 Eos # (Auto) 0.6 H Baso # (Auto) 0.0 Abs Immat Gran (auto) 0.02 Absolute Neuts (auto) 4.1 Absolute Nucleated RBC 0.000 Nucleated RBC % (auto) 0.0 PT 16.8 H INR 1.5 H VBG pH VBG pCO2 VBG pO2 VBG HCO3 VBG O2 Saturation VBG Base Excess Sodium 141 Potassium 4.4 Chloride 107 Carbon Dioxide 29 Anion Gap 9 L BUN 22 H Creatinine 1.31 Estim Creat Clear Calc 70.0 Estimated GFR 55 POC Glucose Random Glucose 261 H Calcium 9.3 Phosphorus 3.2 Magnesium 1.5 L 04/08/21 04/08/21 04/08/21 06:28 06:32 07:23 WBC RBC Hgb Hct MCV MCH MCHC RDW Plt Count MPV Immature Gran % (Auto) Neut % (Auto) Lymph % (Auto) [place] % (Auto) Eos % (Auto) Baso % (Auto) Lymph # (Auto) [place] # (Auto) Eos # (Auto) Baso # (Auto) Abs Immat Gran (auto) Absolute Neuts (auto) Absolute Nucleated RBC Nucleated RBC % (auto) PT INR VBG pH 7.34 VBG pCO2 57 VBG pO2 45 VBG HCO3 31 H VBG O2 Saturation 71.0 VBG Base Excess 4.4 Sodium Potassium Chloride Carbon Dioxide Anion Gap BUN Creatinine Estim Creat Clear Calc Estimated GFR POC Glucose 222 H Random Glucose Calcium Phosphorus Magnesium 1.5 L Preliminary micro results at discharge 04/04/21 06:31 Blood Culture - Preliminary Blood - Venous No growth after 48 hours. 04/04/21 06:31 Blood Culture - Preliminary Blood - Venous No growth after 48 hours. Discharge Plan Discharge Patient Disposition: Xfer Acute Care Hospital Discharge Diagnosis: Acute respiratory failure NSTEMI CHF, COPD exacerbation Complicated UTI Referrals: Physician,Unknown J [Primary Care Provider] - 1 Week Discharge Medications: New atorvastatin 80 mg Tablet 80 mg PO BEDTIME 30 Days Qty: 30 RF: 0 azithromycin 250 mg Tablet 250 mg PO Q24H 2 Days Qty: 2 RF: 0 spironolactone 25 mg Tablet 25 mg PO DAILY 30 Days Qty: 30 RF: 0 magnesium oxide 400 mg (241.3 mg magnesium) Tablet 400 mg PO DAILY 30 Days Qty: 30 RF: 0 prednisone 20 mg tablet 40 mg PO DAILY Qty: 4 RF: 0 Continued multivitamin Tablet 1 tab PO DAILY RF: 0 venlafaxine 37.5 mg Capsule,Extended Release 24hr 37.5 mg PO DAILY RF: 0 clonazepam 1 mg Tablet 1 mg PO TID RF: 0 aspirin 81 mg Tablet,Delayed Release (Dr/Ec) 81 mg PO DAILY RF: 0 lamotrigine 25 mg Tablet 25 mg PO DAILY RF: 0 lisinopril 10 mg Tablet 10 mg PO DAILY RF: 0 omeprazole 20 mg Capsule,Delayed Release(Dr/Ec) 20 mg PO DAILY@0630 RF: 0 olanzapine 15 mg Tablet 15 mg PO BID RF: 0 hydroxyzine pamoate 25 mg Capsule 25 mg PO BID PRN (Reason: Anxiety) RF: 0 doxepin [Silenor] 6 mg Tablet 6 mg PO BEDTIME PRN (Reason: Insomnia) RF: 0 buprenorphine [Butrans] 5 mcg/hour Patch Weekly 1 patch TRANSDERMAL Q7D RF: 0 insulin lispro 100 unit/mL Insulin Pen 12 unit SUBCUT TID RF: 0 Lantus Solostar U-100 Insulin 100 unit/mL (3 mL) Insulin Pen 35 unit SUBCUT BEDTIME RF: 0 Discontinued atorvastatin 20 mg Tablet 10 mg PO BEDTIME RF: 0 Discharge Orders: Discharge Order (Routine); Ordered 04/08/21 Ordered By: Jey Lomas Diet: advance to usual diet Activity on Discharge: As tolerated Stand Alone Forms: Patient Portal Discharge page Care Plan Goals: Read below Health Concerns: Read below Plan of Treatment: Read below Assessment: You were admitted to the hospital for altered mentation and difficulty breathing. Found to be on respiratory failure requiring ICU admission and placement on BiPAP machine. Your responded well to the treatment with steroids, antibiotics, nebulizers and Lasix. An echo was done showing reduced heart function to 40%. Evaluated by Cardiology team who recommended doing an angiogram to evaluate the enzyme leak from your heart. to be transferred to [facility]. Continue baby aspirin Increase atorvastatin to 80 mg daily Start spironolactone Continue azithromycin and prednisone as prescribed Follow up with Cardiology as outpatient
--- NOTE | 2021-04-08 10:27 | PM.PNCARD ---
Subjective Subjective Date of Service: 04/08/21 Interval history: States that he feels well and would like to get home. Review of Systems Review of Systems Yes all other systems are reviewed and are negative Cardiovascular: Reports as per HPI, Reports no additional cardiovascular complaints, Denies acrocyanosis, Denies cool extremities, Denies painful fingertips, Reports chest pain, Denies chest pain at rest, Denies diaphoresis, Denies syncope, Denies irregular heart rhythm, Denies claudication, Denies leg edema, Denies lightheadedness, Denies palpitations and Reports dyspnea Respiratory: Reports dyspnea Denies syncope Endocrine: Denies palpitations Physical Exam Vital Signs: Last Vital Signs Temp 97.6 F 04/08/21 07:24 Pulse 79 04/08/21 08:30 Resp 18 04/08/21 07:24 BP 123/64 04/08/21 08:30 Pulse Ox 97 04/08/21 07:24 Oxygen Flow Rate 4 04/04/21 06:19 BMI result Body Mass Index 36.9 Const General: cooperative and no acute distress [facility] Other: Unremarkable Neck Neck: Yes normal visual inspection Chest Chest palpation & inspection: normal inspection of the chest Resp Other: slightly diminished breath sounds, but otherwise, OK. Cardio Jugular venous distension: no JVD Palpation: normal PMI Heart sounds: S1 normal heart sound present, S2 normal heart sound present, no gallops, no murmurs and no rubs GI Palpation (GI): Soft to palpation Back/Spine/Pelvis Other: unremarkable Skin General skin exam: no rashes or lesions noted Neuro Cranial nerves: Yes Other cranial nerve findings present Extrem General: Yes edema (2+ edema) Psych Mental Status: other Objective Labs and Meds Result diagrams: 04/08/21 06:28 04/08/21 06:28 Lab results: Laboratory Results - last 24 hr 04/07/21 04/07/21 04/07/21 10:54 16:18 19:43 WBC RBC Hgb Hct MCV MCH MCHC RDW Plt Count MPV Immature Gran % (Auto) Neut % (Auto) Lymph % (Auto) [place] % (Auto) Eos % (Auto) Baso % (Auto) Lymph # (Auto) [place] # (Auto) Eos # (Auto) Baso # (Auto) Abs Immat Gran (auto) Absolute Neuts (auto) Absolute Nucleated RBC Nucleated RBC % (auto) PT INR VBG pH VBG pCO2 VBG pO2 VBG HCO3 VBG O2 Saturation VBG Base Excess Sodium Potassium Chloride Carbon Dioxide Anion Gap BUN Creatinine Estim Creat Clear Calc Estimated GFR POC Glucose 238 H 230 H 217 H Random Glucose Calcium Phosphorus Magnesium 04/08/21 04/08/21 04/08/21 06:28 06:28 06:28 WBC 7.0 RBC 4.58 L Hgb 13.8 L Hct 43.1 MCV 94.1 MCH 30.1 MCHC 32.0 RDW 13.9 Plt Count 141 L MPV 10.3 Immature Gran % (Auto) 0.3 Neut % (Auto) 58.9 Lymph % (Auto) 24.9 [place] % (Auto) 7.8 Eos % (Auto) 8.0 H Baso % (Auto) 0.1 Lymph # (Auto) 1.8 [place] # (Auto) 0.6 Eos # (Auto) 0.6 H Baso # (Auto) 0.0 Abs Immat Gran (auto) 0.02 Absolute Neuts (auto) 4.1 Absolute Nucleated RBC 0.000 Nucleated RBC % (auto) 0.0 PT 16.8 H INR 1.5 H VBG pH VBG pCO2 VBG pO2 VBG HCO3 VBG O2 Saturation VBG Base Excess Sodium 141 Potassium 4.4 Chloride 107 Carbon Dioxide 29 Anion Gap 9 L BUN 22 H Creatinine 1.31 Estim Creat Clear Calc 70.0 Estimated GFR 55 POC Glucose Random Glucose 261 H Calcium 9.3 Phosphorus 3.2 Magnesium 1.5 L 04/08/21 04/08/21 04/08/21 06:28 06:32 07:23 WBC RBC Hgb Hct MCV MCH MCHC RDW Plt Count MPV Immature Gran % (Auto) Neut % (Auto) Lymph % (Auto) [place] % (Auto) Eos % (Auto) Baso % (Auto) Lymph # (Auto) [place] # (Auto) Eos # (Auto) Baso # (Auto) Abs Immat Gran (auto) Absolute Neuts (auto) Absolute Nucleated RBC Nucleated RBC % (auto) PT INR VBG pH 7.34 VBG pCO2 57 VBG pO2 45 VBG HCO3 31 H VBG O2 Saturation 71.0 VBG Base Excess 4.4 Sodium Potassium Chloride Carbon Dioxide Anion Gap BUN Creatinine Estim Creat Clear Calc Estimated GFR POC Glucose 222 H Random Glucose Calcium Phosphorus Magnesium 1.5 L Progress Note: A&P Assessment and plan (1) NSTEMI (non-ST elevated myocardial infarction): Status: Acute (2) COPD exacerbation: Status: Acute Assessment and Plan: Pertinent data reviewed. Echocardiogram with LVEF of about 40% but difficult study. There was grade 2 diastolic dysfunction as well as slight enlargement of the right ventricle. Troponins are 894, 715, 478 and 253. Chest x-ray reported to have interstitial prominence which could reflect bronchial wall thickening in the setting of acute or chronic bronchitis. Overall, multiple medical comorbidities; likely demand related NSTEMI; high pretest probability for coronary disease. Treat with aspirin, high-dose statins. Yesterday, discussed about diagnostic catheterization and he stated he wanted to think about it. Again discussed about the fact that he had a myocardial infarction and ideally should get a cardiac catheterization to assess coronary anatomy but he states he is not interested in this at all. He would rather go home. In spite of clear explanations, he would rather not undergo any procedures. Hence may discharged on optimal medical therapy including aspirin, high-dose statins. Beta-blockers if able. If he is willing to come we can see in the office and do the needful but he states he wants to see his own doctor. Fall Risk Details Current Medications: Current Medications Aspirin (Aspirin Enteric Coated 81 Mg Tablet.) 81 mg PO DAILY [facility] Last Admin: 04/08/21 08:30 Dose: 81 mg Documented by: Atorvastatin Calcium (Atorvastatin Calcium 80 Mg Tablet) 80 mg PO BEDTIME [facility] Last Admin: 04/07/21 20:03 Dose: 80 mg Documented by: Azithromycin (Azithromycin 250 Mg Tablet) 250 mg PO Q24H [facility] Stop: 04/08/21 21:01 Last Admin: 04/07/21 20:03 Dose: 250 mg Documented by: Clonazepam (Clonazepam 1 Mg Tablet) 1 mg PO TID [facility] Last Admin: 04/08/21 08:30 Dose: 1 mg Documented by: Insulin Glargine (Insulin Glargine,Hum.Rec.Anlog 100 Unit/Ml 10 Ml Vial) 25 unit SUBCUT BEDTIME [facility] Last Admin: 04/07/21 20:04 Dose: 25 unit Documented by: Insulin Human Lispro (Insulin Lispro 100 Unit/Ml 3 Ml Vial) 0 unit SUBCUT QIDACHS [facility]; Protocol Last Admin: 04/08/21 08:30 Dose: 4 unit Documented by: Lorazepam (Lorazepam 2 Mg/Ml Vial) 0.5 mg IVPUSH ONCE PRN PRN Reason: agitation Last Admin: 04/05/21 11:51 Dose: 0.5 mg Documented by: Magnesium Oxide (Magnesium Oxide 400 Mg Tablet) 400 mg PO BIDPC [facility] Last Admin: 04/08/21 08:30 Dose: 400 mg Documented by: Midazolam HCl (Midazolam Hcl/Pf 2 Mg/2 Ml Vial) 2 mg IVPUSH Q15M PRN PRN Reason: anxiety/restlessness Last Admin: 04/05/21 14:25 Dose: 2 mg Documented by: Patient Own Med ( Buprenorphine [ Butrans] 5 Mcg/Hour Patch) 1 each TRANSDERMA We@0900 [facility] Last Admin: 04/07/21 09:18 Dose: 1 each Documented by: Olanzapine (Olanzapine 7.5 Mg Tablet) 15 mg PO BID [facility] Last Admin: 04/08/21 08:30 Dose: 15 mg Documented by: Pharmacy Consult (Consult Rx Perform Med Rec) 1 each MISCELLANE ONCE PRN PRN Reason: Consult order Spironolactone (Spironolactone 25 Mg Tablet) 25 mg PO DAILY [facility]; Protocol Last Admin: 04/08/21 08:30 Dose: 25 mg Documented by: Time Spent With Patient Time: Total time spent is greater than 50% in coordination of care (as documented) at patient's floor/unit and/or counseling patient: Time with patient: less than 15 minutes Progress Note: Quality Stroke Does the patient have a stroke diagnosis?: No Procedures Date of Service Date of Service: 04/08/21
--- NOTE | 2021-04-08 10:59 | MHC.CM.PN ---
Per ROUNDS discussion, Patient is being dc to [facility] today for an Angiogram and per MD, likely to be at [facility] for a few days.
[2021-04-08 11:20] VITALS: BP 126/64; PULSE 75; RESP 18; TEMP 36.2; O2SAT 96
[2021-04-08 11:32] LABS: Glucose, Whole Blood 203 mg/dL (60-115)
--- NOTE | 2021-04-08 14:02 | MHC.CM.PN ---
[facility]ATI HAILE [facility] to [facility]. The patient is an acute transfer to [facility]. [facility] has not called for patient. We are waiting for an available bed. Transport would be a will call. T/W called the [facility] x[facility]. Adelaida Venegas as well as Rubi's cell phone # were called. A VM was left on Rubi's cell. [facility] contact information, as well as call details provided. Notification that the call will be booked with [facility] was also on the VM. A request for a return call was made too.
[2021-04-08 15:45] VITALS: BP 133/69; PULSE 88; RESP 18; TEMP 36.8; O2SAT 94
[2021-04-08 16:45] LABS: Glucose, Whole Blood 248 mg/dL (60-115)
[2021-04-08 19:48] VITALS: BP 158/74; PULSE 72; RESP 18; TEMP 36.7; O2SAT 90
[2021-04-08 20:50] LABS: Glucose, Whole Blood 195 mg/dL (60-115)
[2021-04-08] MEDS: Insulin Glargine,Hum.rec.anlog 100 UNIT/ML 10 ML VIAL 25 UNIT SUBCUT (21:09)
[2021-04-08] MEDS: Atorvastatin Calcium 80 MG TABLET PO (21:11)
[2021-04-08] MEDS: Azithromycin 250 MG TABLET PO (22:20)
[2021-04-09] VITALS: BP 125/59; PULSE 82; RESP 18; TEMP 36.9; O2SAT 90
[2021-04-09 03:27] VITALS: BP 122/62; PULSE 80; RESP 18; TEMP 37; O2SAT 93
[2021-04-09 06:23] LABS: MANUAL DIFF FLAG NO
[2021-04-09 06:31] LABS: Basophils Percent Auto 0.2 % (0-2); Eosinophils Absolute Auto 0.7 X10*3/uL (0.0-0.4); Eosinophils Percent Auto 8.4 % (0-4); Hematocrit 42.3 % (42.0-52.0); Hemoglobin 13.6 g/dl (14.0-18.0); Imm Gran Abs Auto 0.01 X10*3/uL (0.00-0.03); Imm Gran Pct Auto 0.1 % (0.0-0.4); Lymphocytes Absolute Auto 2.7 X10*3/uL (1.2-4.9); Lymphocytes Percent Auto 32.6 % (20-40); Mean Corpuscular HGB Conc 32.2 g/dl (31.0-36.0); Mean Corpuscular Hemoglobin 30.4 pg (27.0-33.0); Mean Corpuscular Volume 94.4 fL (80.0-98.0); Mean Platelet Volume 10.3 fL (9.4-12.4); Monocytes Absolute Auto 0.5 X10*3/uL (0.1-1.2); Monocytes Percent Auto 6.3 % (2-11); Neutrophils Absolute Auto 4.3 x10*3/uL (2.0-8.3); Neutrophils Percent Auto 52.4 % (45-73); Platelet Count 148 X10*3/uL (160-400); Red Blood Count 4.48 X10*6/uL (4.60-5.80); Red Cell Distribution Width 13.9 % (11.0-16.0); White Blood Count 8.3 X10*3/uL (4.8-10.8)
[2021-04-09 06:32] LABS: VBG HCO3 33 mmol/L (22-26); VBG pCO2 58 mmHg; VBG pH 7.36 (7.32-7.43); VBG pO2 98 mmHg
[2021-04-09 06:38] LABS: INTERNATIONAL NORM RATIO 1.4 (0.9-1.1); Prothrombin Time 16.4 SEC (9.9-13.0)
[2021-04-09 06:48] LABS: Anion Gap 11 (12-20); Blood Urea Nitrogen 22 mg/dL (9-16); Calcium 9.3 mg/dL (8.4-10.2); Carbon Dioxide 29 mmol/L (22-29); Chloride 105 mmol/L (96-108); Estimated Glomerular Filt Rate 55; Glucose Random 145 mg/dL (60-115); Magnesium 1.7 mg/dL (1.6-2.6); Phosphorus 3.3 mg/dL (2.7-4.5); Potassium 4.5 mmol/L (3.3-5.1); Sodium 140 mmol/L (135-145)
[2021-04-09 07:22] VITALS: BP 129/60; PULSE 79; RESP 18; TEMP 36.1; O2SAT 93
[2021-04-09 07:39] LABS: Glucose, Whole Blood 133 mg/dL (60-115)
[2021-04-09] MEDS: OLANZapine 7.5 MG TABLET 15 MG PO (08:10)
[2021-04-09] MEDS: Spironolactone 25 MG TABLET PO (08:10)
[2021-04-09] MEDS: Aspirin Enteric Coated 81 MG TABLET.DR PO (08:10)
[2021-04-09] MEDS: clonazePAM 1 MG TABLET PO (08:10)
[2021-04-09] MEDS: Magnesium Oxide 400 MG TABLET PO (08:10)
[2021-04-09 09:15] LABS: Venous Blood Gas Refer to POC result
--- NOTE | 2021-04-09 10:31 | PM.PNCARD ---
Subjective Subjective Date of Service: 04/09/21 Interval history: No specific cardiac symptoms. Review of Systems Review of Systems Yes all other systems are reviewed and are negative Cardiovascular: Reports as per HPI, Reports no additional cardiovascular complaints, Denies acrocyanosis, Denies cool extremities, Denies painful fingertips, Reports chest pain, Denies chest pain at rest, Denies diaphoresis, Denies syncope, Denies irregular heart rhythm, Denies claudication, Denies leg edema, Denies lightheadedness, Denies palpitations and Reports dyspnea Respiratory: Reports dyspnea Denies syncope Endocrine: Denies palpitations Physical Exam Vital Signs: Last Vital Signs Temp 96.9 F 04/09/21 07:22 Pulse 79 04/09/21 07:22 Resp 18 04/09/21 07:22 BP 129/60 04/09/21 07:22 Pulse Ox 93 04/09/21 07:22 Oxygen Flow Rate 4 04/04/21 06:19 BMI result Body Mass Index 36.9 Const General: cooperative and no acute distress [facility] Other: Unremarkable Neck Neck: Yes normal visual inspection Chest Chest palpation & inspection: normal inspection of the chest Resp Other: slightly diminished breath sounds, but otherwise, OK. Cardio Jugular venous distension: no JVD Palpation: normal PMI Heart sounds: S1 normal heart sound present, S2 normal heart sound present, no gallops, no murmurs and no rubs GI Palpation (GI): Soft to palpation Back/Spine/Pelvis Other: unremarkable Skin General skin exam: no rashes or lesions noted Neuro Cranial nerves: Yes Other cranial nerve findings present Extrem General: Yes edema (2+ edema) Psych Mental Status: other Objective Labs and Meds Result diagrams: 04/09/21 06:17 04/09/21 06:17 Lab results: Laboratory Results - last 24 hr 04/08/21 04/08/21 04/08/21 11:22 16:41 20:46 WBC RBC Hgb Hct MCV MCH MCHC RDW Plt Count MPV Immature Gran % (Auto) Neut % (Auto) Lymph % (Auto) [place] % (Auto) Eos % (Auto) Baso % (Auto) Lymph # (Auto) [place] # (Auto) Eos # (Auto) Baso # (Auto) Abs Immat Gran (auto) Absolute Neuts (auto) Absolute Nucleated RBC Nucleated RBC % (auto) PT INR VBG pH VBG pCO2 VBG pO2 VBG HCO3 VBG O2 Saturation VBG Base Excess Sodium Potassium Chloride Carbon Dioxide Anion Gap BUN Creatinine Estim Creat Clear Calc Estimated GFR POC Glucose 203 H 248 H 195 H Random Glucose Calcium Phosphorus Magnesium 04/09/21 04/09/21 04/09/21 06:17 06:17 06:17 WBC 8.3 RBC 4.48 L Hgb 13.6 L Hct 42.3 MCV 94.4 MCH 30.4 MCHC 32.2 RDW 13.9 Plt Count 148 L MPV 10.3 Immature Gran % (Auto) 0.1 Neut % (Auto) 52.4 Lymph % (Auto) 32.6 [place] % (Auto) 6.3 Eos % (Auto) 8.4 H Baso % (Auto) 0.2 Lymph # (Auto) 2.7 [place] # (Auto) 0.5 Eos # (Auto) 0.7 H Baso # (Auto) 0.0 Abs Immat Gran (auto) 0.01 Absolute Neuts (auto) 4.3 Absolute Nucleated RBC 0.000 Nucleated RBC % (auto) 0.0 PT 16.4 H INR 1.4 H VBG pH VBG pCO2 VBG pO2 VBG HCO3 VBG O2 Saturation VBG Base Excess Sodium 140 Potassium 4.5 Chloride 105 Carbon Dioxide 29 Anion Gap 11 L BUN 22 H Creatinine 1.31 Estim Creat Clear Calc 70.0 Estimated GFR 55 POC Glucose Random Glucose 145 H D Calcium 9.3 Phosphorus 3.3 Magnesium 1.7 04/09/21 04/09/21 06:25 07:22 WBC RBC Hgb Hct MCV MCH MCHC RDW Plt Count MPV Immature Gran % (Auto) Neut % (Auto) Lymph % (Auto) [place] % (Auto) Eos % (Auto) Baso % (Auto) Lymph # (Auto) [place] # (Auto) Eos # (Auto) Baso # (Auto) Abs Immat Gran (auto) Absolute Neuts (auto) Absolute Nucleated RBC Nucleated RBC % (auto) PT INR VBG pH 7.36 VBG pCO2 58 VBG pO2 98 VBG HCO3 33 H VBG O2 Saturation 97.0 VBG Base Excess 6.0 Sodium Potassium Chloride Carbon Dioxide Anion Gap BUN Creatinine Estim Creat Clear Calc Estimated GFR POC Glucose 133 H Random Glucose Calcium Phosphorus Magnesium Progress Note: A&P Assessment and plan (1) NSTEMI (non-ST elevated myocardial infarction): Status: Acute (2) COPD exacerbation: Status: Acute Assessment and Plan: Pertinent data reviewed. Echocardiogram with LVEF of about 40%, but difficult study. There was grade 2 diastolic dysfunction as well as slight enlargement of the right ventricle. Troponins are 894, 715, 478 and 253. Chest x-ray reported to have interstitial prominence which could reflect bronchial wall thickening in the setting of acute or chronic bronchitis. Overall, multiple medical comorbidities; likely demand related NSTEMI; high pretest probability for coronary disease. Treat with aspirin, high-dose statins. Yesterday we had planned on transfer for cardiac catheterization but he refused it. Today he states he is agreeable. Hence may transfer for diagnostic catheterization. Accepted at [facility]. Keep NPO. Fall Risk Details Current Medications: Current Medications Aspirin (Aspirin Enteric Coated 81 Mg Tablet.) 81 mg PO DAILY [facility] Last Admin: 04/09/21 08:10 Dose: 81 mg Documented by: Atorvastatin Calcium (Atorvastatin Calcium 80 Mg Tablet) 80 mg PO BEDTIME [facility] Last Admin: 04/08/21 21:11 Dose: 80 mg Documented by: Clonazepam (Clonazepam 1 Mg Tablet) 1 mg PO TID [facility] Last Admin: 04/09/21 08:10 Dose: 1 mg Documented by: Insulin Glargine (Insulin Glargine,Hum.Rec.Anlog 100 Unit/Ml 10 Ml Vial) 25 unit SUBCUT BEDTIME [facility] Last Admin: 04/08/21 21:09 Dose: 25 unit Documented by: Insulin Human Lispro (Insulin Lispro 100 Unit/Ml 3 Ml Vial) 0 unit SUBCUT QIDACHS [facility]; Protocol Last Admin: 04/09/21 07:40 Dose: Not Given Documented by: Lorazepam (Lorazepam 2 Mg/Ml Vial) 0.5 mg IVPUSH ONCE PRN PRN Reason: agitation Last Admin: 04/05/21 11:51 Dose: 0.5 mg Documented by: Magnesium Oxide (Magnesium Oxide 400 Mg Tablet) 400 mg PO BIDPC [facility] Last Admin: 04/09/21 08:10 Dose: 400 mg Documented by: Midazolam HCl (Midazolam Hcl/Pf 2 Mg/2 Ml Vial) 2 mg IVPUSH Q15M PRN PRN Reason: anxiety/restlessness Last Admin: 04/05/21 14:25 Dose: 2 mg Documented by: Patient Own Med ( Buprenorphine [ Butrans] 5 Mcg/Hour Patch) 1 each TRANSDERMA We@0900 [facility] Last Admin: 04/07/21 09:18 Dose: 1 each Documented by: Olanzapine (Olanzapine 7.5 Mg Tablet) 15 mg PO BID [facility] Last Admin: 04/09/21 08:10 Dose: 15 mg Documented by: Pharmacy Consult (Consult Rx Perform Med Rec) 1 each MISCELLANE ONCE PRN PRN Reason: Consult order Spironolactone (Spironolactone 25 Mg Tablet) 25 mg PO DAILY [facility]; Protocol Last Admin: 04/09/21 08:10 Dose: 25 mg Documented by: Time Spent With Patient Time: Total time spent is greater than 50% in coordination of care (as documented) at patient's floor/unit and/or counseling patient: Time with patient: less than 15 minutes Progress Note: Quality Stroke Does the patient have a stroke diagnosis?: No Procedures Date of Service Date of Service: 04/09/21
[2021-04-09 11:05] LABS: Glucose, Whole Blood 165 mg/dL (60-115)
[2021-04-09 11:16] VITALS: BP 119/60; PULSE 78; RESP 20; TEMP 36.2; O2SAT 92
--- NOTE | 2021-04-09 12:34 | MHC.SLORD ---
Speech Language Pathology Order Status: Per diet order, patient is currently NPO. IT PROGRAMMER contacted MD who reports patient is NPO for angiogram. No PO trials given this date d/t NPO status.
== END 2021-04-09 12:30 | disposition short-term general hospital (02) | DRG 280 ==
LOC: HO.ED 07:56 → HO.EDOVER 09:17 → HO.ICU 09:20 → HO.IMC 04-06 13:23
PROVIDERS: Internal Medicine; Internal Medicine Cardiovascular Disease; Physician Assistant; Admitting Provider Anesthesiology; Emergency Provider Student in an Organized Health Care Education/Training Program; Visit Provider Student in an Organized Health Care Education/Training Program
DX: I21.4 Non-ST elevation (NSTEMI) myocardial infarction (principal); J96.22 Acute and chronic respiratory failure with hypercapnia; J96.21 Acute and chronic respiratory failure with hypoxia; I50.21 Acute systolic (congestive) heart failure; J44.1 Chronic obstructive pulmonary disease with (acute) exacerbation; E66.2 Morbid (severe) obesity with alveolar hypoventilation; F05 Delirium due to known physiological condition; I13.0 Hypertensive heart and chronic kidney disease with heart failure and stage 1 through stage 4 chronic kidney disease, or unspecified chronic kidney disease; C61 Malignant neoplasm of prostate; E11.22 Type 2 diabetes mellitus with diabetic chronic kidney disease; F43.10 Post-traumatic stress disorder, unspecified; F17.210 Nicotine dependence, cigarettes, uncomplicated; N18.2 Chronic kidney disease, stage 2 (mild); N31.9 Neuromuscular dysfunction of bladder, unspecified; Z71.6 Tobacco abuse counseling; Z20.822 Contact with and (suspected) exposure to COVID-19; Z68.37 Body mass index [BMI] 37.0-37.9, adult; Z87.440 Personal history of urinary (tract) infections; Z87.442 Personal history of urinary calculi; Z79.4 Long term (current) use of insulin; Z79.82 Long term (current) use of aspirin; Z79.899 Other long term (current) drug therapy
CPT/HCPCS: 0241U; 36415; 36600; 70450; 71045; 80048; 80053; 81003; 82607; 82746; 82803; 82947; 83605; 83735; 83880; 84100; 84443; 84484; 85025; 85027; 85379; 85610; 85730; 87040; 92610; 93005; 93306; 93970; 94640; 94660; 99285; J0456; J0696; J1940; J2060; J2250; J2930; J3475

== ENCOUNTER → 2021-04-27 14:34 | Outpatient (BNVA) | payer OTHER, MEDICARE, SELFPAY | PROVIDERS: Visit Provider Nurse Practitioner Family | DX: I21.4 Non-ST elevation (NSTEMI) myocardial infarction (principal); I42.9 Cardiomyopathy, unspecified; I25.10 Atherosclerotic heart disease of native coronary artery without angina pectoris; G47.33 Obstructive sleep apnea (adult) (pediatric); Z98.890 Other specified postprocedural states | CPT/HCPCS: 99212 ==

== ENCOUNTER → 2021-08-09 10:15 | Outpatient (BNVA) | payer OTHER, MEDICARE, SELFPAY | PROVIDERS: Visit Provider Internal Medicine | DX: I25.10 Atherosclerotic heart disease of native coronary artery without angina pectoris (principal); I42.9 Cardiomyopathy, unspecified; Z79.899 Other long term (current) drug therapy | CPT/HCPCS: 93005; 99212 ==

== ENCOUNTER 2021-09-06 15:26 | Emergency (ER) | payer OTHER, MEDICARE, SELFPAY ==
--- NOTE | ~2021-09-06 | XR_ITS ---
EXAMINATION: XR FOOT, LEFT CLINICAL INFORMATION: Heel infection COMPARISON: None TECHNIQUE: AP, lateral, and oblique views of the left foot. FINDINGS: There is diffuse soft tissue swelling. I do not appreciate any acute fracture or dislocation. There is diffuse osteopenia but no bony destructive lesions or obvious bony erosions. Degenerative changes are noted with small calcaneal heel spur at the attachment point of the plantar aponeurosis. No radiopaque foreign body or soft tissue gas. XR/XR foot LT min 3V IMPRESSION: Osteopenia and degenerative changes but no acute bony destructive lesion.
[2021-09-06 15:42] VITALS: BP 140/96; PULSE 80; O2SAT 96
[2021-09-06 16:05] VITALS: BP 157/69; PULSE 72; RESP 18; TEMP 36.3; O2SAT 98; BMI 36.6
[2021-09-06 16:20] VITALS: BP 147/62; PULSE 94; RESP 20; TEMP 36.8
--- NOTE | 2021-09-06 16:33 | ED.GENADULT ---
HPI - General Adult General Chief complaint: Skin/Abscess/Foreign Body Stated complaint: LOW EXT INFECTION PER VRN Time Seen by Provider: 09/06/21 16:31 Source: patient and other (Caregiver) Limitations: no limitations History of Present Illness HPI narrative: This is a 65-year-old male with a history of diabetes, normally ambulate some, uses an electric wheelchair. In the last few days he has had some pain to his left heel and the caregiver notes some change in the skin to the heel. The patient also has chronic intermittent erythema to his lower extremities which comes and goes, and this is been worse in the last few days. Patient has not had any fever, though a few days ago he did complain of chills. He has not had any injury to the foot such as stepping on anything sharp. His caregiver said he owes wears diabetic socks and shoes when he ambulates. He otherwise denies any complaints except some chronic intermittent nausea. He denies any headache, chest pain, shortness of breath, cough, abdominal pain Related Data Home Medications Medication Instructions Recorded Confirmed aspirin 81 mg tablet,delayed 81 mg PO DAILY 04/04/21 08/09/21 release buprenorphine 5 mcg/hour weekly 1 patch TRANSDERMAL Q7D 04/04/21 08/09/21 transdermal patch (Butrans) clonazepam 1 mg tablet 1 mg PO TID 04/04/21 08/09/21 doxepin 6 mg tablet (Silenor) 6 mg PO BEDTIME PRN 04/04/21 08/09/21 hydroxyzine pamoate 25 mg capsule 25 mg PO BID PRN 04/04/21 08/09/21 insulin glargine 100 unit/mL (3 35 unit SUBCUT BEDTIME 04/04/21 08/09/21 mL) subcutaneous pen (Lantus Solostar U-100 Insulin) insulin lispro 100 unit/mL 12 unit SUBCUT TID 04/04/21 08/09/21 subcutaneous pen lamotrigine 25 mg tablet 25 mg PO DAILY 04/04/21 08/09/21 lisinopril 10 mg tablet 10 mg PO DAILY 04/04/21 08/09/21 multivitamin 1 tab PO DAILY 04/04/21 08/09/21 olanzapine 15 mg tablet 15 mg PO BID 04/04/21 08/09/21 omeprazole 20 mg capsule,delayed 20 mg PO DAILY@0630 11/28/21 04/04/22 release venlafaxine 37.5 mg 37.5 mg PO DAILY 04/04/21 08/09/21 capsule,extended release 24 hr Previous Rx's Medication Instructions Recorded atorvastatin 80 mg tablet 80 mg PO BEDTIME 30 Days #30 tab 04/08/21 magnesium oxide 400 mg (241.3 mg 400 mg PO DAILY 30 Days #30 tab 04/08/21 magnesium) tablet carvedilol 3.125 mg tablet 3.125 mg PO BID #60 tab 04/27/21 amlodipine 10 mg tablet 10 mg PO DAILY #30 tab 08/18/21 furosemide 20 mg tablet 20 mg PO DAILY #30 tab 08/18/21 cephalexin 750 mg capsule 750 mg PO TID #20 cap 09/06/21 Allergies Allergy/AdvReac Type Severity Reaction Status Date / Time quetiapine [From Seroquel] Allergy Mild LEG Verified 08/09/21 10:51 SWELLING onion [Onion] AdvReac Unknown NAUSEA & Verified 08/09/21 10:51 VOMITING PEPPERS AdvReac Mild NAUSEA & Uncoded 08/09/21 10:51 VOMITING Review of Systems Review of Systems: Yes all other systems are reviewed and are negative Constitutional: Constitutional: Reports as per HPI and Denies fever(s) Eyes: Eyes: Reports as per HPI and Reports no additional eye complaints ENT: Reports system reviewed and no additional complaints, except as documented, Reports as per HPI, Denies nasal congestion, Denies nasal discharge and Denies sore throat Cardiovascular: Cardiovascular: Reports as per HPI, Denies chest pain and Denies dyspnea Respiratory: Respiratory: Reports as per HPI, Denies cough and Denies dyspnea Gastrointestinal: Gastrointestinal: Reports as per HPI, Denies abdominal pain, Denies diarrhea, Reports nausea and Denies vomiting Genitourinary: Genitourinary: Reports as per HPI, Denies hematuria, Denies dysuria and Denies urinary frequency Musculoskeletal: Musculoskeletal: Reports no additional musculoskeletal complaints and Denies numbness Comments: Some pain to the left heel with walking Integumentary/Breasts: Skin/Breast: Reports as per HPI and Denies rash Comments: Erythema to legs Neurologic: Reports as per HPI, Denies focal weakness and Denies numbness Psychiatric: Psychiatric: Reports no additional psychiatric complaints and Reports as per HPI Endocrine: Endocrine: Reports no additional endocrine complaints and Reports as per HPI Hematologic/Lymphatic: Hematologic/Lymphatic: Reports no additional hematologic/lymphatic complaints, Reports as per HPI and Reports other (No peripheral edema) [facility] Past Medical History Medical History Complicated UTI (urinary tract infection) 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 Nephrolithiasis Neurogenic bladder Prostate cancer Surgical History History of cardiac cath S/P cardiac cath Family History Family History Father CAD (coronary artery disease) Pacemaker Social History Social History (Updated 08/09/21 @ 10:53 by BAR Antoine) Household Members: Spouse Housing: House Alcohol intake: never Patient Tobacco Use Status: Current everyday Tobacco user Cigarette Packs Per Day: 2 Use of substances other than those prescribed or required for medical reasons: No Advance Directives: Yes Advance Directives on File: Yes Advance Directives Date on File: 04/12/21 service: Yes Current occupational status: disabled Physical Exam ED Vital Signs: Vital Signs - 24 hr 09/06/21 16:05 09/06/21 16:20 Temperature 97.3 F 98.2 F Pulse Rate 72 94 Respiratory Rate 18 20 Blood Pressure 157/69 H 147/62 H Pulse Oximetry 98 BMI result Body Mass Index 36.6 Const General: no acute distress Orientation/consciousness: patient oriented x3 HENMT Head: Yes normal to inspection General nose exam: Normal external nose present Mouth: moist mucous membranes Throat: Yes posterior oropharynx normal, Yes tonsils normal and Yes uvula midline Eyes Eyelids: Yes eyelids normal Conjunctivae: conjunctivae normal Pupils: Equal, round and reactive pupils present Neck Neck: Yes supple Resp Effort & Inspection: normal respiratory effort Auscultation: clear to auscultation bilaterally Cardio Rate: regular rate Rhythm: regular rhythm Heart sounds: S1 normal heart sound present, S2 normal heart sound present, no gallops, no murmurs and no rubs GI Inspection: No distended Palpation (GI): Soft to palpation and nontender Auscultation: normal bowel sounds Skin General skin exam: other (Warm and dry) Neuro General: patient oriented x3 and CN's II-XI intact bilaterally Cranial nerves: Yes Equal, round and reactive pupils present Extrem Other: Erythema to the anterior legs, above the sock line, with mild warmth, consistent with chronic venous stasis dermatitis. Left heel has a callus. There is no brittny ulceration. There is borderline mild swelling, chronic appearing mild skin changes but no definite evidence of infection or cellulitis General: Yes no pedal edema Psych Affect: normal affect Attitude: cooperative Medical Decision Making [facility] [place] Narrative Medical decision making narrative: Patient with stasis dermatitis, possible borderline cellulitis to the anterior legs. Patient's caregiver was also concerned about his left heel. There is no ulceration, no evidence of any concerning pathology there. There was a callus. X-ray showed no gas collection or foreign body. Patient will be started on Keflex 750 mg t.i.d.. Patient is not ill appearing, was afebrile, can be treated as an outpatient Discharge Plan Discharge Clinical Impression: Cellulitis Patient Disposition: Home, Self-Care Instructions: Cellulitis (ED) Additional Instructions: Make sure the left heel stays well padded when wearing shoes or walking. Soak the left foot in warm water for 15 minutes, twice a day. Take the cephalexin as prescribed. Return for any worsened symptoms such as skin ulceration, increased redness or swelling, fever Prescriptions: New cephalexin 750 mg capsule 750 mg PO TID Qty: 20 0RF No Action amlodipine 10 mg tablet 10 mg PO DAILY Qty: 30 0RF furosemide 20 mg tablet 20 mg PO DAILY Qty: 30 0RF multivitamin Tablet 1 tab PO DAILY 0RF venlafaxine 37.5 mg Capsule,Extended Release 24hr 37.5 mg PO DAILY 0RF clonazepam 1 mg Tablet 1 mg PO TID 0RF aspirin 81 mg Tablet,Delayed Release (Dr/Ec) 81 mg PO DAILY 0RF lamotrigine 25 mg Tablet 25 mg PO DAILY 0RF lisinopril 10 mg Tablet 10 mg PO DAILY 0RF omeprazole 20 mg Capsule,Delayed Release(Dr/Ec) 20 mg PO DAILY@0630 0RF olanzapine 15 mg Tablet 15 mg PO BID 0RF hydroxyzine pamoate 25 mg Capsule 25 mg PO BID PRN (Reason: Anxiety) 0RF doxepin [Silenor] 6 mg Tablet 6 mg PO BEDTIME PRN (Reason: Insomnia) 0RF buprenorphine [Butrans] 5 mcg/hour Patch Weekly 1 patch TRANSDERMAL Q7D 0RF insulin lispro 100 unit/mL Insulin Pen 12 unit SUBCUT TID 0RF Lantus Solostar U-100 Insulin 100 unit/mL (3 mL) Insulin Pen 35 unit SUBCUT BEDTIME 0RF atorvastatin 80 mg Tablet 80 mg PO BEDTIME 30 Days Qty: 30 0RF magnesium oxide 400 mg (241.3 mg magnesium) Tablet 400 mg PO DAILY 30 Days Qty: 30 0RF carvedilol 3.125 mg tablet 3.125 mg PO BID Qty: 60 5RF Rx Instructions: must administer with a meal/food Interventions: ED Discharge Assessment Last Done: 09/06/21 17:50 Discharge Date/Time: 09/06/21 17:51
[2021-09-06] MEDS: cephALEXin 500 MG CAPSULE 1000 MG PO (16:59)
== END 2021-09-06 17:51 | disposition home or self-care (01) ==
PROVIDERS: Emergency Provider Emergency Medicine
DX: L03.115 Cellulitis of right lower limb (principal); L03.116 Cellulitis of left lower limb; I87.2 Venous insufficiency (chronic) (peripheral); F17.210 Nicotine dependence, cigarettes, uncomplicated; Z71.6 Tobacco abuse counseling; Z79.899 Other long term (current) drug therapy
CPT/HCPCS: 73630; 99283; 99284

== ENCOUNTER 2021-10-25 17:56 | Emergency (ER) | payer OTHER, MEDICARE, SELFPAY ==
[2021-10-25 18:03] VITALS: BP 98/48; PULSE 83; RESP 20; TEMP 36.9; O2SAT 96; BMI 36.4
--- NOTE | 2021-10-25 20:17 | ED.BACK ---
HPI - Back Pain/Injury General Chief Complaint: Back Pain/Injury Stated Complaint: Side Pain Radiating To Back Time Seen by Provider: 10/25/21 20:10 Source: patient Mode of arrival: ambulatory Limitations: no limitations History of Present Illness HPI Narrative: Patient with with low back pain for 3 months getting worse radiating to lower back patient is on wheelchair most of the times and has chronic back problems no motor weakness no paresthesia no bladder or bowel involvement Related Data Home Medications Medication Instructions Recorded Confirmed aspirin 81 mg tablet,delayed 81 mg PO DAILY 04/04/21 08/09/21 release buprenorphine 5 mcg/hour weekly 1 patch transdermal Q7D 04/04/21 08/09/21 transdermal patch (Butrans) clonazepam 1 mg tablet 1 mg PO TID 04/04/21 08/09/21 doxepin 6 mg tablet (Silenor) 6 mg PO BEDTIME PRN Insomnia 04/04/21 08/09/21 hydroxyzine pamoate 25 mg capsule 25 mg PO BID PRN Anxiety 04/04/21 08/09/21 insulin glargine 100 unit/mL (3 35 unit subcut BEDTIME 04/04/21 08/09/21 mL) subcutaneous pen (Lantus Solostar U-100 Insulin) insulin lispro 100 unit/mL 12 unit subcut TID 04/04/21 08/09/21 subcutaneous pen lamotrigine 25 mg tablet 25 mg PO DAILY 04/04/21 08/09/21 lisinopril 10 mg tablet 10 mg PO DAILY 04/04/21 08/09/21 multivitamin 1 tab PO DAILY 04/04/21 08/09/21 olanzapine 15 mg tablet 15 mg PO BID 04/04/21 08/09/21 omeprazole 20 mg capsule,delayed 20 mg PO DAILY@0630 04/04/21 08/09/21 release venlafaxine 37.5 mg 37.5 mg PO DAILY 04/04/21 08/09/21 capsule,extended release 24 hr Previous Rx's Medication Instructions Recorded atorvastatin 80 mg tablet 80 mg PO BEDTIME 30 days #30 tabs 04/08/21 magnesium oxide 400 mg (241.3 mg 400 mg PO DAILY 30 days #30 tabs 04/08/21 magnesium) tablet carvedilol 3.125 mg tablet 3.125 mg PO BID #60 tabs 04/27/21 amlodipine 10 mg tablet 10 mg PO DAILY #30 tabs 08/18/21 furosemide 20 mg tablet 20 mg PO DAILY #30 tabs 08/18/21 cephalexin 750 mg capsule 750 mg PO TID #20 caps 09/06/21 oxycodone-acetaminophen 5 mg-325 1 tab PO Q6H PRN pain #20 tabs 10/25/21 mg tablet (Percocet) Allergies Allergy/AdvReac Type Severity Reaction Status Date / Time quetiapine [From Seroquel] Allergy Mild LEG Verified 08/09/21 10:51 SWELLING onion [Onion] AdvReac Unknown NAUSEA & Verified 08/09/21 10:51 VOMITING PEPPERS AdvReac Mild NAUSEA & Uncoded 08/09/21 10:51 VOMITING Review of Systems Review of Systems: Yes all other systems are reviewed and are negative PMFSH Past Medical History Medical History Complicated UTI (urinary tract infection) 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 Nephrolithiasis Neurogenic bladder Prostate cancer Surgical History History of cardiac cath Family History Family History Father CAD (coronary artery disease) Pacemaker Social History Social History Household Members: Spouse Housing: House Alcohol intake: never Patient Tobacco Use Status: Current everyday Tobacco user Cigarette Packs Per Day: 2 Advance Directives: Yes Advance Directives on File: Yes Advance Directives Date on File: 04/12/21 service: Yes Current occupational status: disabled Physical Exam Vital Signs: Vital Signs: Last Vital Signs Temp 98.4 F 10/25/21 18:03 Pulse 89 10/25/21 20:41 Resp 16 10/25/21 20:41 BP 116/72 10/25/21 20:41 Pulse Ox 96 10/25/21 18:03 O2 Del Method 10/25/21 18:03 BMI result Body Mass Index 36.4 Appearance: Alert. Oriented X3. No acute distress. Mostly wheelchair-bound ENT: Pharynx normal. Oral Mucosa moist Neck: Normal inspection. Neck supple. CVS: Normal heart rate and rhythm. Pulses normal. Respiratory: No respiratory distress. Equal air entry bilateral, no wheezing/rales/rhonchi Abdomen: Soft and nontender. Bowel sounds are present, no mass palpable, no CVA tenderness Skin: Skin warm and dry. Normal skin color. Normal skin turgor. Extremities: No lower extremity edema. No calf tenderness Back: Diffuse lumbar spine tenderness no focal spinal tenderness Neuro: Oriented X 3. No motor deficit. No sensory deficit.No cerebellar signs , cranial nerves II-XII intact Discharge Plan Discharge Clinical Impression: Chronic low back pain Patient Disposition: Home, Self-Care Instructions: Chronic Back Pain (DC) Additional Instructions: Take pain medication as prescribed follow with PCP/pain clinic Prescriptions: New oxycodone-acetaminophen [Percocet] 5-325 mg tablet 1 tab PO Q6H PRN (Reason: pain) Qty: 20 0RF Rx Instructions: Partial Fill upon patient request. No Action amlodipine 10 mg tablet 10 mg PO DAILY Qty: 30 0RF furosemide 20 mg tablet 20 mg PO DAILY Qty: 30 0RF multivitamin Tablet 1 tab PO DAILY venlafaxine 37.5 mg Capsule,Extended Release 24hr 37.5 mg PO DAILY clonazepam 1 mg Tablet 1 mg PO TID aspirin 81 mg Tablet,Delayed Release (Dr/Ec) 81 mg PO DAILY lamotrigine 25 mg Tablet 25 mg PO DAILY lisinopril 10 mg Tablet 10 mg PO DAILY omeprazole 20 mg Capsule,Delayed Release(Dr/Ec) 20 mg PO DAILY@0630 olanzapine 15 mg Tablet 15 mg PO BID hydroxyzine pamoate 25 mg Capsule 25 mg PO BID PRN (Reason: Anxiety) doxepin [Silenor] 6 mg Tablet 6 mg PO BEDTIME PRN (Reason: Insomnia) buprenorphine [Butrans] 5 mcg/hour Patch Weekly 1 patch TRANSDERMAL Q7D insulin lispro 100 unit/mL Insulin Pen 12 unit SUBCUT TID Lantus Solostar U-100 Insulin 100 unit/mL (3 mL) Insulin Pen 35 unit SUBCUT BEDTIME atorvastatin 80 mg Tablet 80 mg PO BEDTIME 30 Days Qty: 30 0RF magnesium oxide 400 mg (241.3 mg magnesium) Tablet 400 mg PO DAILY 30 Days Qty: 30 0RF cephalexin 750 mg capsule 750 mg PO TID Qty: 20 0RF carvedilol 3.125 mg tablet 3.125 mg PO BID Qty: 60 5RF Rx Instructions: must administer with a meal/food Interventions: ED Discharge Assessment Last Done: 10/25/21 20:41 Discharge Date/Time: 10/25/21 20:42
[2021-10-25] MEDS: oxyCODONE HCl Immed Release 5 MG TABLET 10 MG PO (20:40)
[2021-10-25 20:41] VITALS: BP 116/72; PULSE 89; RESP 16
== END 2021-10-25 20:42 | disposition home or self-care (01) ==
PROVIDERS: Emergency Provider Internal Medicine
DX: M54.50 Low back pain, unspecified (principal); F17.210 Nicotine dependence, cigarettes, uncomplicated; Z71.6 Tobacco abuse counseling; Z79.899 Other long term (current) drug therapy
CPT/HCPCS: 99283

== ENCOUNTER 2021-10-30 02:57 | Emergency (ER) | payer OTHER, MEDICARE, SELFPAY ==
--- NOTE | ~2021-10-30 | CT_ITS ---
EXAMINATION: CT ABDOMEN AND PELVIS WITHOUT CONTRAST CLINICAL INFORMATION: Right flank pain. COMPARISON: Chest radiograph 10/30/2021. TECHNIQUE: Multidetector volumetric imaging was performed from the superior aspect of the liver through the pubic symphysis. Sagittal and coronal reformatted images were obtained on the technologist's workstation. This CT examination was performed using dose optimization techniques as appropriate, variously including the following: *Automated exposure control *Adjustment of mA and/or kV according to patient size (this includes techniques or standardized protocols for targeted exams where dose is matched to indication/reason for exam; i.e. extremities or head) *Use of iterative reconstruction technique DLP: 941 mGy-cm FINDINGS: LUNG BASES: Mild right base dependent atelectasis. LIVER, GALLBLADDER, AND BILIARY TREE: The liver is normal in size, shape, and attenuation. No focal hepatic lesion or biliary ductal dilatation is present. Gallbladder is not definitively visualized. Possible decompressed gallbladder is noted in the region of the gallbladder fossa (series 3 image 22). PANCREAS: Marked diffuse extensive punctate dystrophic calcifications. No peripancreatic inflammatory changes or fluid collections noted. SPLEEN: Unremarkable. ADRENAL GLANDS: Unremarkable. KIDNEYS AND URETERS: Prominent hilar vascular calcifications are present in association with the left and right kidneys. Making allowances for these findings, no definitive nephrolithiasis. No perinephric inflammatory changes or fluid collections. No hydronephrosis. No ureterectasis. BLADDER: A punctate focus of gas is present nondependently within the urinary bladder lumen. The urinary bladder is physiologically distended. GASTROINTESTINAL TRACT: A cecal bascule is noted. The appendix is normal in appearance (series 3 image 50). No free intraperitoneal fluid or gas collections noted. No intestinal dilatation or mural thickening noted. The stomach and duodenum are normal in appearance. ABDOMINAL WALL: No significant hernia is appreciated. LYMPH NODES: Normal. VASCULAR: Dense diffuse calcific atherosclerosis. PELVIC VISCERA: Brachial therapy seeds are present within the prostate. The prostate is normal in size. OSSEOUS STRUCTURES: Partial visualization is made of multiple left rib chronic appearing posttraumatic deformities including an ununited fracture of the posterior segment of the left 10th rib. A compression deformity with 50% loss of craniocaudal height and inward deformity of the superior endplate of L4 is present unchanged compared with 05/03/2019 in degree[address]/CT abdomen pelvis wo con IMPRESSION: *Punctate focus of gas within the urinary bladder. This finding may be secondary to recent catheterization. In the absence of catheterization this finding could correlate with active infection/cystitis. *Extensive dystrophic calcifications within the pancreas consistent with the sequela of chronic pancreatitis. No evidence of acute pancreatitis. *No evidence of acute obstructive uropathy. Extensive bilateral renal hilar atherosclerotic vascular calcifications are present. Making allowances for these calcifications, no definitive urolithiasis. *Normal appendix. A cecal bascule is present in the appendix is present in the right upper abdominal quadrant. *Multiple chronic left rib posttraumatic deformities. *Mild right base atelectasis.
--- NOTE | ~2021-10-30 | XR_ITS ---
EXAMINATION: XR CHEST CLINICAL INFORMATION: Right rib pain. COMPARISON: Chest radiograph 04/04/2022. TECHNIQUE: Frontal view of the chest was obtained. FINDINGS: Low lung volumes are present. Minimal right base airspace type opacity is present. No effusions or pneumothoraces noted. No displaced rib fractures visualized. Multiple left lateral chronic appearing posttraumatic rib deformities are noted. XR/XR chest 1V IMPRESSION: *Low lung volumes and mild right base atelectasis and/or consolidation. *Multiple chronic appearing posttraumatic left rib deformities.
[2021-10-30 03:23] VITALS: BP 137/65; PULSE 98; RESP 18; TEMP 36.9; O2SAT 90; BMI 37.0
[2021-10-30 03:29] VITALS: PULSE 98; RESP 18; O2SAT 95
[2021-10-30 03:32] VITALS: BP 123/66; PULSE 106
--- NOTE | 2021-10-30 03:42 | ECG_ITS ---
Test Reason : ABDOMINAL PAIN Blood Pressure : / mmHG Vent. Rate : 100 BPM Atrial Rate : 100 BPM P-R Int : 214 ms QRS Dur : 148 ms QT Int : 368 ms P-R-T Axes : 047 075 025 degrees QTc Int : 474 ms Sinus rhythm with 1st degree A-V block with Premature atrial complexes with Aberrant conduction Right bundle branch block Possible Inferior infarct , age undetermined Abnormal ECG When compared with ECG of 04-APR-2021 06:38, No significant change was found Referred By: Alexia Jordan Electronically Signed By:OLIVIA MEDINA MD
[2021-10-30 04:07] LABS: MANUAL DIFF FLAG NO
[2021-10-30 04:08] LABS: Basophils Percent Auto 0.1 % (0-2); Eosinophils Absolute Auto 0.4 X10*3/uL (0.0-0.4); Eosinophils Percent Auto 4.2 % (0-4); Hematocrit 42.6 % (42.0-52.0); Hemoglobin 13.3 g/dl (14.0-18.0); Imm Gran Abs Auto 0.01 X10*3/uL (0.00-0.03); Imm Gran Pct Auto 0.1 % (0.0-0.4); Lymphocytes Absolute Auto 1.8 X10*3/uL (1.2-4.9); Lymphocytes Percent Auto 20.3 % (20-40); Mean Corpuscular HGB Conc 31.2 g/dl (31.0-36.0); Mean Corpuscular Hemoglobin 30.4 pg (27.0-33.0); Mean Corpuscular Volume 97.5 fL (80.0-98.0); Mean Platelet Volume 9.9 fL (9.4-12.4); Monocytes Absolute Auto 0.6 X10*3/uL (0.1-1.2); Monocytes Percent Auto 7.1 % (2-11); Neutrophils Absolute Auto 5.9 x10*3/uL (2.0-8.3); Neutrophils Percent Auto 68.2 % (45-73); Platelet Count 156 X10*3/uL (160-400); Red Blood Count 4.37 X10*6/uL (4.60-5.80); Red Cell Distribution Width 13.4 % (11.0-16.0); White Blood Count 8.7 X10*3/uL (4.8-10.8)
[2021-10-30 04:23] LABS: COVID-19 Test Negative (Negative)
[2021-10-30 04:27] LABS: Alanine Aminotransferase 17 U/L (0-40); Alkaline Phosphatase 105 U/L (39-117); Anion Gap 9 (12-20); Aspartate Amino Transferase 24 U/L (5-37); Bilirubin Direct 0.2 mg/dL (0.0-0.5); Bilirubin Total 0.2 mg/dL (0.0-1.0); Blood Urea Nitrogen 30 mg/dL (9-16); Calcium 9.4 mg/dL (8.4-10.2); Carbon Dioxide 23 mmol/L (22-29); Chloride 111 mmol/L (96-108); Creatinine Clr Calc Pharmacy 46.1; Estimated Glomerular Filt Rate 37; Glucose Random 70 mg/dL (60-115); Lipase 8 U/L (8-78); Potassium 4.8 mmol/L (3.3-5.1); Sodium 138 mmol/L (135-145); Total Protein 6.7 g/dL (6.5-8.0); Troponin-I High Sensitivity 8.8 ng/L (<3.5-35.0)
[2021-10-30 05:22] LABS: Appearance Urine CLEAR; Color Urine YELLOW; Glucose Urine UA 100 MG/DL (NEG); Leukocyte Esterase Urine NEG (NEG); Nitrite Urine NEG (NEG); Specific Gravity - Urine 1.015 (1.005-1.025); Urine Blood NEG (NEG); Urine Ketones NEG (NEG); Urine Protein NEG (NEG-TRACE)
--- NOTE | 2021-10-30 05:58 | ED.ABDPAIN ---
HPI - Abdominal Pain General Chief Complaint: Abdominal Pain Stated Complaint: rlq pain Time Seen by Provider: 10/30/21 03:42 Source: patient Mode of arrival: ambulatory Limitations: no limitations History of Present Illness HPI narrative: Patient comes to the emergency room complaining of right-sided abdominal pain/flank pain. States it started yesterday around 20:00, constant, nonradiating. Patient denies nausea vomiting or diarrhea. No sick contacts, no increased coughing. Related Data Home Medications Medication Instructions Recorded Confirmed aspirin 81 mg tablet,delayed 81 mg PO DAILY 04/04/21 08/09/21 release buprenorphine 5 mcg/hour weekly 1 patch transdermal Q7D 04/04/21 08/09/21 transdermal patch (Butrans) clonazepam 1 mg tablet 1 mg PO TID 04/04/21 08/09/21 doxepin 6 mg tablet (Silenor) 6 mg PO BEDTIME PRN Insomnia 04/04/21 08/09/21 hydroxyzine pamoate 25 mg capsule 25 mg PO BID PRN Anxiety 04/04/21 08/09/21 insulin glargine 100 unit/mL (3 35 unit subcut BEDTIME 04/04/21 08/09/21 mL) subcutaneous pen (Lantus Solostar U-100 Insulin) insulin lispro 100 unit/mL 12 unit subcut TID 04/04/21 08/09/21 subcutaneous pen lamotrigine 25 mg tablet 25 mg PO DAILY 04/04/21 08/09/21 lisinopril 10 mg tablet 10 mg PO DAILY 04/04/21 08/09/21 multivitamin 1 tab PO DAILY 04/04/21 08/09/21 olanzapine 15 mg tablet 15 mg PO BID 04/04/21 08/09/21 omeprazole 20 mg capsule,delayed 20 mg PO DAILY@0630 04/04/21 08/09/21 release venlafaxine 37.5 mg 37.5 mg PO DAILY 04/04/21 08/09/21 capsule,extended release 24 hr Previous Rx's Medication Instructions Recorded atorvastatin 80 mg tablet 80 mg PO BEDTIME 30 days #30 tabs 04/08/21 magnesium oxide 400 mg (241.3 mg 400 mg PO DAILY 30 days #30 tabs 04/08/21 magnesium) tablet carvedilol 3.125 mg tablet 3.125 mg PO BID #60 tabs 04/27/21 amlodipine 10 mg tablet 10 mg PO DAILY #30 tabs 08/18/21 furosemide 20 mg tablet 20 mg PO DAILY #30 tabs 08/18/21 cephalexin 750 mg capsule 750 mg PO TID #20 caps 09/06/21 oxycodone-acetaminophen 5 mg-325 1 tab PO Q6H PRN pain #20 tabs 10/25/21 mg tablet (Percocet) acetaminophen 500 mg capsule 500 mg PO QID PRN fever or pain 10/30/21 #20 caps Allergies Allergy/AdvReac Type Severity Reaction Status Date / Time quetiapine [From Seroquel] Allergy Mild LEG Verified 10/30/21 03:28 SWELLING onion [Onion] AdvReac Unknown NAUSEA & Verified 10/30/21 03:28 VOMITING PEPPERS AdvReac Mild NAUSEA & Uncoded 08/09/21 10:51 VOMITING Review of Systems Review of Systems Constitutional : No Weight loss, No Fever, No Chills, No Night Sweats, No Fatigue, No Malaise ENT/Mouth : No Hearing loss, No Ear Pain, No Nasal Congestion, No Sinus Pain, No Hoarseness, No sore throat, No Rhinorrhea, No Swallowing Difficulty Eyes: No Eye Pain, No Swelling, No Redness, No Foreign Body, No Discharge, No Vision Changes Cardiovascular : No Chest Pain, No SOB, No Dyspnea on Exertion, No Orthopnea, No Edema, No Palpitations Respiratory : No Cough, No Sputum, No Wheezing, No Smoke Exposure, No Dyspnea Gastrointestinal : No Nausea, No Vomiting, No Diarrhea, No Constipation, No abdominal Pain, No Hematochezia, No Melena Genitourinary : no irregular bleeding, No Dysuria, No Urinary Frequency, No Hematuria, No Urinary Incontinence, No Urgency, complaining of right-sided Flank Pain, No Urinary Flow Changes, No Hesitancy Musculoskeletal : No joint pain, No Myalgias, No Joint Swelling Skin : No Skin Lesions, No rash Neuro : No Weakness, No Numbness, No Paresthesias, No Loss of Consciousness, No Dizziness, No Headache Psych : No Anxiety/Panic, No Depression, No SI/HI/AH/VH, No Social Issues, Heme/Lymph: No Bruising, No Bleeding,No Lymphadenopathy Endocrine : No Polyuria, No Polydipsia, No Temperature Intolerance PMFSH Past Medical History Medical History Complicated UTI (urinary tract infection) 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 Nephrolithiasis Neurogenic bladder Prostate cancer Surgical History History of cardiac cath Family History Family History Father CAD (coronary artery disease) Pacemaker Social History Social History Household Members: Spouse Housing: House Alcohol intake: never Patient Tobacco Use Status: Current everyday Tobacco user Cigarette Packs Per Day: 2 Advance Directives: Yes Advance Directives on File: Yes Advance Directives Date on File: 04/12/21 service: Yes Current occupational status: disabled Physical Exam ED Vital Signs: Vital Signs - 24 hr 10/30/21 03:23 10/30/21 03:29 10/30/21 06:25 Temperature 98.4 F 98.4 F Pulse Rate 98 98 106 H Respiratory Rate 18 18 16 Blood Pressure 137/65 135/73 Pulse Oximetry 90 L 95 96 Oxygen Delivery Method Room Air Nasal Cannula Nasal Cannula Oxygen Flow Rate 2 2 10/30/21 07:19 Temperature Pulse Rate 102 H Respiratory Rate 22 H Blood Pressure 150/74 H Pulse Oximetry 98 Oxygen Delivery Method Nasal Cannula Oxygen Flow Rate 2 BMI result Body Mass Index 37.0 Const Other: Appearance: Alert. Oriented X3. No acute distress. Eyes: Pupils equal, round and reactive to light. ENT: Pharynx normal. Neck: Normal inspection. Neck supple. No lymph nodes noted. No crepitus CVS: Normal heart rate and rhythm. Pulses normal. Normal S1 and S2 Respiratory: No respiratory distress. Breath sounds normal. No Wheezing. No rales Abdomen: Soft and nontender. No rigidity. No distention. Skin: Skin warm and dry. Normal skin color. Normal skin turgor. Extremities: +2 pitting edema bilaterally, chronic venous stasis bilaterally, patient is missing the DIPs from the right hand (old frostbite injuries) Neuro: Oriented X 3. No motor deficit. No sensory deficit. Moving all extremities. No slurred speech. CN 2 through 12 grossly intact Psych: calm, cooperative, normal affect Course Course Course Narrative: Patient's creatinine is bumped, patient receiving IV fluids, white blood cell count within normal limits, troponin negative urine negative for UTI. CT scan of abdomen and pelvis pending. CT scan does not show any acute pathology. Normal appendix, possible chronic pancreatitis, x-ray does not show any acute abnormalities either, patient does have healing fractures, chronic. Patient receiving IV fluids, please follow-up chemistry after IV fluids MDM - Abdominal Pain Lab Data Result diagrams: 10/30/21 04:02 10/30/21 04:02 Labs: Lab Results 10/30/21 10/30/21 10/30/21 Range/Units 04:02 04:02 04:02 WBC 8.7 (4.8-10.8) X10*3/uL RBC 4.37 L (4.60-5.80) X10*6/uL Hgb 13.3 L (14.0-18.0) g/dl Hct 42.6 (42.0-52.0) % MCV 97.5 (80.0-98.0) fL MCH 30.4 (27.0-33.0) pg MCHC 31.2 (31.0-36.0) g/dl RDW 13.4 (11.0-16.0) % Plt Count 156 L (160-400) X10*3/uL MPV 9.9 (9.4-12.4) fL Immature Gran % (Auto) 0.1 (0.0-0.4) % Neut % (Auto) 68.2 (45-73) % Lymph % (Auto) 20.3 (20-40) % [place] % (Auto) 7.1 (2-11) % Eos % (Auto) 4.2 H (0-4) % Baso % (Auto) 0.1 (0-2) % Lymph # (Auto) 1.8 (1.2-4.9) X10*3/uL [place] # (Auto) 0.6 (0.1-1.2) X10*3/uL Eos # (Auto) 0.4 (0.0-0.4) X10*3/uL Baso # (Auto) 0.0 (0.0-0.2) X10*3/uL Abs Immat Gran (auto) 0.01 (0.00-0.03) X10*3/uL Absolute Neuts (auto) 5.9 (2.0-8.3) x10*3/uL Absolute Nucleated RBC 0.000 (0.0-0.012) X10*3/uL Nucleated RBC % (auto) 0.0 (0.0-0.2) /100WBC Sodium 138 (135-145) mmol/L Potassium 4.8 (3.3-5.1) mmol/L Chloride 111 H (96-108) mmol/L Carbon Dioxide 23 (22-29) mmol/L Anion Gap 9 L (12-20) BUN 30 H (9-16) mg/dL Creatinine 1.85 H (0.5-1.4) mg/dL Estim Creat Clear Calc 46.1 Estimated GFR 37 POC Glucose (60-115) mg/dL Random Glucose 70 D (60-115) mg/dL Calcium 9.4 (8.4-10.2) mg/dL Total Bilirubin 0.2 (0.0-1.0) mg/dL Direct Bilirubin 0.2 (0.0-0.5) mg/dL AST 24 (5-37) U/L ALT 17 (0-40) U/L Alkaline Phosphatase 105 D (39-117) U/L Troponin I High Sens (<3.5-35.0) ng/L Total Protein 6.7 (6.5-8.0) g/dL Albumin 4.0 (3.5-5.0) g/dL Lipase 8 (8-78) U/L Urine Color Urine Appearance Urine pH (5.0-8.0) Ur Specific [place] (1.005-1.025) Urine Protein (NEG-TRACE) MG/DL Urine Glucose (UA) (NEG) MG/DL Urine Ketones (NEG) MG/DL Urine Blood (NEG) Urine Nitrite (NEG) Ur Leukocyte Esterase (NEG) COVID-19 (CARLIN) Negative (Negative) COVID-19 Clin Com See Note 10/30/21 10/30/21 10/30/21 Range/Units 04:02 05:16 06:42 WBC (4.8-10.8) X10*3/uL RBC (4.60-5.80) X10*6/uL Hgb (14.0-18.0) g/dl Hct (42.0-52.0) % MCV (80.0-98.0) fL MCH (27.0-33.0) pg MCHC (31.0-36.0) g/dl RDW (11.0-16.0) % Plt Count (160-400) X10*3/uL MPV (9.4-12.4) fL Immature Gran % (Auto) (0.0-0.4) % Neut % (Auto) (45-73) % Lymph % (Auto) (20-40) % [place] % (Auto) (2-11) % Eos % (Auto) (0-4) % Baso % (Auto) (0-2) % Lymph # (Auto) (1.2-4.9) X10*3/uL [place] # (Auto) (0.1-1.2) X10*3/uL Eos # (Auto) (0.0-0.4) X10*3/uL Baso # (Auto) (0.0-0.2) X10*3/uL Abs Immat Gran (auto) (0.00-0.03) X10*3/uL Absolute Neuts (auto) (2.0-8.3) x10*3/uL Absolute Nucleated RBC (0.0-0.012) X10*3/uL Nucleated RBC % (auto) (0.0-0.2) /100WBC Sodium (135-145) mmol/L Potassium (3.3-5.1) mmol/L Chloride (96-108) mmol/L Carbon Dioxide (22-29) mmol/L Anion Gap (12-20) BUN (9-16) mg/dL Creatinine (0.5-1.4) mg/dL Estim Creat Clear Calc Estimated GFR POC Glucose 63 (60-115) mg/dL Random Glucose (60-115) mg/dL Calcium (8.4-10.2) mg/dL Total Bilirubin (0.0-1.0) mg/dL Direct Bilirubin (0.0-0.5) mg/dL AST (5-37) U/L ALT (0-40) U/L Alkaline Phosphatase (39-117) U/L Troponin I High Sens 8.8 (<3.5-35.0) ng/L Total Protein (6.5-8.0) g/dL Albumin (3.5-5.0) g/dL Lipase (8-78) U/L Urine Color YELLOW Urine Appearance CLEAR Urine pH 6.0 (5.0-8.0) Ur Specific [place] 1.015 (1.005-1.025) Urine Protein NEG (NEG-TRACE) MG/DL Urine Glucose (UA) 100 H (NEG) MG/DL Urine Ketones NEG (NEG) MG/DL Urine Blood NEG (NEG) Urine Nitrite NEG (NEG) Ur Leukocyte Esterase NEG (NEG) COVID-19 (CARLIN) (Negative) COVID-19 Clin Com Discharge Plan Discharge Clinical Impression: Acute right flank pain, Acute kidney injury Patient Disposition: Still a Patient Instructions: Abdominal Pain (ED), Acute Kidney Injury (DC) Additional Instructions: Please follow-up with your primary care physician tomorrow. If you have any worsening or new symptoms, please return to the emergency room or call 911 Prescriptions: New acetaminophen 500 mg capsule 500 mg PO QID PRN (Reason: fever or pain) Qty: 20 0RF No Action amlodipine 10 mg tablet 10 mg PO DAILY Qty: 30 0RF furosemide 20 mg tablet 20 mg PO DAILY Qty: 30 0RF multivitamin Tablet 1 tab PO DAILY venlafaxine 37.5 mg Capsule,Extended Release 24hr 37.5 mg PO DAILY clonazepam 1 mg Tablet 1 mg PO TID aspirin 81 mg Tablet,Delayed Release (Dr/Ec) 81 mg PO DAILY lamotrigine 25 mg Tablet 25 mg PO DAILY lisinopril 10 mg Tablet 10 mg PO DAILY omeprazole 20 mg Capsule,Delayed Release(Dr/Ec) 20 mg PO DAILY@0630 olanzapine 15 mg Tablet 15 mg PO BID hydroxyzine pamoate 25 mg Capsule 25 mg PO BID PRN (Reason: Anxiety) doxepin [Silenor] 6 mg Tablet 6 mg PO BEDTIME PRN (Reason: Insomnia) buprenorphine [Butrans] 5 mcg/hour Patch Weekly 1 patch TRANSDERMAL Q7D insulin lispro 100 unit/mL Insulin Pen 12 unit SUBCUT TID Lantus Solostar U-100 Insulin 100 unit/mL (3 mL) Insulin Pen 35 unit SUBCUT BEDTIME atorvastatin 80 mg Tablet 80 mg PO BEDTIME 30 Days Qty: 30 0RF magnesium oxide 400 mg (241.3 mg magnesium) Tablet 400 mg PO DAILY 30 Days Qty: 30 0RF cephalexin 750 mg capsule 750 mg PO TID Qty: 20 0RF oxycodone-acetaminophen [Percocet] 5-325 mg tablet 1 tab PO Q6H PRN (Reason: pain) Qty: 20 0RF Rx Instructions: Partial Fill upon patient request. carvedilol 3.125 mg tablet 3.125 mg PO BID Qty: 60 5RF Rx Instructions: must administer with a meal/food
[2021-10-30] MEDS: 0.9 % Sodium Chloride 1,000 ML 999 ML IVCONT (06:20)
--- NOTE | 2021-10-30 06:22 | PC.NURSE ---
pt BS 70mg/dl MD aware, per MD give juice & crackers
[2021-10-30 06:25] VITALS: BP 135/73; PULSE 106; RESP 16; TEMP 36.9; O2SAT 96
[2021-10-30 06:47] LABS: Glucose, Whole Blood 63 mg/dL (60-115)
[2021-10-30 07:19] VITALS: BP 150/74; PULSE 102; RESP 22; O2SAT 98
[2021-10-30 07:23] LABS: Glucose, Whole Blood 126 mg/dL (60-115)
[2021-10-30] MEDS: Dextrose 50 % 25 GM/50 ML SYRINGE IVPUSH (07:33)
[2021-10-30 08:07] LABS: Anion Gap 10 (12-20); Blood Urea Nitrogen 28 mg/dL (9-16); Calcium 8.8 mg/dL (8.4-10.2); Carbon Dioxide 23 mmol/L (22-29); Chloride 112 mmol/L (96-108); Estimated Glomerular Filt Rate 39; Glucose Random 168 mg/dL (60-115); Potassium 4.7 mmol/L (3.3-5.1); Sodium 140 mmol/L (135-145)
== END 2021-10-30 09:26 | disposition still patient (30) ==
PROVIDERS: Emergency Medicine; Emergency Provider Emergency Medicine Emergency Medical Services
DX: R10.9 Unspecified abdominal pain (principal); N17.9 Acute kidney failure, unspecified; F17.210 Nicotine dependence, cigarettes, uncomplicated; Z71.6 Tobacco abuse counseling; Z20.822 Contact with and (suspected) exposure to COVID-19; Z79.899 Other long term (current) drug therapy
CPT/HCPCS: 36415; 71045; 74176; 80048; 80076; 81003; 82947; 83690; 84484; 85025; 87635; 93005; 96361; 96374; 99284; 99285

== ENCOUNTER 2022-03-05 07:53 | Inpatient (IN) | payer OTHER, SELFPAY ==
[2022-03-05] VITALS (8 sets, daily range): BP systolic 143–157; BP diastolic 68–92; PULSE 90–106; RESP 15–18; TEMP 36.6–37.2; O2SAT 88–95; BMI 41.9
--- NOTE | ~2022-03-05 | CT_ITS ---
EXAMINATION: HEAD CT WITHOUT CONTRAST CERVICAL SPINE CT WITHOUT CONTRAST CLINICAL INFORMATION: Fall, head strike COMPARISON: CT head 04/05/2021 TECHNIQUE: Contiguous axial imaging of the head was performed without the administration of IV contrast. Axial multidetector volumetric images were also performed through the cervical spine without contrast. Multiplanar reconstructed images in coronal and sagittal orientations were submitted. DOSE: 1548 mGy-cm FINDINGS: HEAD: There is no evidence of acute intracranial hemorrhage or territorial infarction. There are foci of increased attenuation in different areas of the subcortical region, such as in the bilateral frontal lobes, appearing to be artifactual. No abnormal mass-effect or midline shift. No extra-axial fluid collections. You to white matter differentiation is well preserved. There is patchy mild periventricular and subcortical white matter hypoattenuation, most likely representing microangiopathic disease Calvarium appears intact. The sinuses and mastoid air cells are clear. CERVICAL SPINE: There is motion artifact degrading images, limiting evaluation. There is anatomic alignment of the vertebral bodies and posterior elements. The atlantoaxial and atlantooccipital articulations are maintained. Vertebral body heights are maintained. Evaluation for fracture is limited by motion artifact. No gross compression deformity or obvious fracture is seen of the vertebral bodies. No evidence of acute fracture. No prevertebral soft tissue swelling. Visualized lung apices appear unremarkable. The thyroid gland is unremarkable. CT/CT cervical spine wo IV con IMPRESSION: 1. No CT evidence of acute intracranial hemorrhage or edematous territorial infarction. 2. Limited evaluation of the cervical spine, motion artifact degrading images, limiting evaluation. No CT evidence of obvious vertebral body compression deformity or obvious fracture in the cervical spine, but evaluation is limited. Repeat CT scan as clinically warranted.
--- NOTE | ~2022-03-05 | CT_ITS ---
EXAMINATION: CT CHEST WITHOUT CONTRAST CLINICAL INFORMATION: 66-year-old male with questionable pneumonia on the right COMPARISON: Chest radiograph from same day earlier and CT scan of chest from 04/30/2019 TECHNIQUE: Multidetector volumetric CT imaging of the chest was done. Axial MIP volume rendering provided. Sagittal and coronal reformatted images were obtained. This CT examination was performed using dose optimization techniques as appropriate, variously including the following: *Automated exposure control *Adjustment of mA and/or kV according to patient size (this includes techniques or standardized protocols for targeted exams where dose is matched to indication/reason for exam; i.e. extremities or head) *Use of iterative reconstruction technique DLP: 396 mGy-cm FINDINGS: IGNITION MECHANIC: Unremarkable LUNGS: There are mild changes of centrilobular emphysema with right lower lobe and less prominent left lower lobe atelectasis but there are no nodules or infiltrates. MEDIASTINUM: The mediastinum is normal. CORONARY ARTERY CALCIFICATION: Heavily calcified coronary arteries. PLEURA: There is no pleural effusion. No pleural mass or thickening. AXILLA: No lymphadenopathy. UPPER ABDOMEN: There is heavily calcified pancreas due to chronic pancreatitis There is circumferentially thickened esophagus, correlate with clinical history of possible reflux esophagitis. There are vascular renal calcifications. There are findings of bilateral gynecomastia OSSEOUS STRUCTURES: There is new since 2019 compression deformity of T7 and T8 and multiple remote healed fractures of ribs on the left. CT/CT chest wo IV con IMPRESSION: No evidence of pneumonia. Bilateral atelectasis Changes of centrilobular emphysema. Circumferential thickening, without was consistent with esophagitis correlate clinically. Chronic pancreatitis Atherosclerotic renal calcifications. Compression deformities of T7 and 8, new since previous study Fleischner guidelines were followed.
--- NOTE | ~2022-03-05 | XR_ITS ---
EXAMINATION: X-RAY BILATERAL KNEES CLINICAL INFORMATION: Fall, pain COMPARISON: None TECHNIQUE: Bilateral knees each 4 views FINDINGS: Right knee: No acute fracture or dislocation is seen. Anatomic alignment. Joint spaces are maintained. Patellar tendon insertional enthesopathy. No significant effusion seen. Left knee: Anatomic alignment. Joint spaces are maintained. No visible acute fracture or dislocation. Quadriceps tendon insertional enthesopathy. No significant effusion. XR/XR knee LT 3V IMPRESSION: No radiographically evident acute fracture or dislocation.
--- NOTE | ~2022-03-05 | XR_ITS ---
EXAMINATION: XR CHEST CLINICAL INFORMATION: Low O2 sat. COMPARISON: 03/05/2022 chest radiographs. TECHNIQUE: Frontal view of the chest was obtained. FINDINGS: Mild linear markings are seen at the left lung base. There is minimal blunting of the left costophrenic angle. The left upper lung field and right lung are clear. The heart and mediastinal structures are unremarkable. XR/XR chest 1V IMPRESSION: Mild linear atelectasis versus scarring at the left lung base. A very small left pleural effusion cannot be excluded. A lateral view would be helpful in this patient.
--- NOTE | ~2022-03-05 | XR_ITS ---
EXAMINATION: X-RAY BILATERAL KNEES CLINICAL INFORMATION: Fall, pain COMPARISON: None TECHNIQUE: Bilateral knees each 4 views FINDINGS: Right knee: No acute fracture or dislocation is seen. Anatomic alignment. Joint spaces are maintained. Patellar tendon insertional enthesopathy. No significant effusion seen. Left knee: Anatomic alignment. Joint spaces are maintained. No visible acute fracture or dislocation. Quadriceps tendon insertional enthesopathy. No significant effusion. XR/XR knee RT 3V IMPRESSION: No radiographically evident acute fracture or dislocation.
--- NOTE | ~2022-03-05 | XR_ITS ---
EXAMINATION: XR CHEST CLINICAL INFORMATION: Cough COMPARISON: X-ray 10/30/2021 TECHNIQUE: 2 views of the chest were obtained. FINDINGS: Rotated tilted positioning. Prominence of the cardiac and mediastinal silhouette, likely secondary to positioning/technique. Mild right basilar opacification from atelectasis or infiltrate. No dense consolidation otherwise. No effusion, edema or pneumothorax. Thoracic spine degeneration. There is a compression deformity of 2 vertebrae in the mid thoracic spine, of indeterminate age. This appears new as compared to the prior CT chest 04/30/2019. XR/XR chest 2V IMPRESSION: Right basilar opacity could reflect atelectasis or infiltrate. Age indeterminate compression fracture of 2 vertebrae in the mid thoracic spine. This appears new as compared to the prior CT from 04/30/2019. Clinically correlate. Further evaluation with MRI as clinically warranted.
--- NOTE | 2022-03-05 08:03 | ECG_ITS ---
Test Reason : MULTIPLE FALLS Blood Pressure : / mmHG Vent. Rate : 083 BPM Atrial Rate : 083 BPM P-R Int : 202 ms QRS Dur : 136 ms QT Int : 388 ms P-R-T Axes : 055 063 047 degrees QTc Int : 455 ms Normal sinus rhythm with sinus arrhythmia Right bundle branch block Abnormal ECG When compared with ECG of 30-OCT-2021 03:48, Aberrant conduction is no longer Present Nonspecific T wave abnormality has replaced inverted T waves in Anterior leads Referred By: Lori Gonzales Electronically Signed By:ABISAI YOUNG MD
--- NOTE | 2022-03-05 08:10 | ED_ITS ---
HPI - Fall General Chief Complaint: General Medical Stated Complaint: fall Time Seen by Provider: 03/05/22 07:56 Source: patient Mode of arrival: EMS Limitations: no limitations History of Present Illness HPI Narrative: Patient is a 58-year-old male who presents to the emergency department via EMS for evaluation after multiple falls. By his report, these falls have been mechanical. States that yesterday he tripped on the rug landing on to his left knee. Evidently EMS was at the home yesterday night, 2200, the patient refused transfer to the emergency department. He had another fall today which again he states that he tripped landing on his right knee. Denies head strike with fall denies loss of consciousness. Required assistance to get up both times however. Denies any numbness or tingling to the extremities. No obvious deformity. Per patient's , with whom he resides with and is his wild animal caretaker, she expresses concerns about failure to thrive. Reporting history of depression and prior suicide attempts. Patient denies SI/HI at this time. Related Data Home Medications Medication Instructions Recorded Confirmed aspirin 81 mg tablet,delayed 81 mg PO DAILY 04/04/21 03/05/22 release clonazepam 1 mg tablet 1 mg PO TID 04/04/21 03/05/22 doxepin 6 mg tablet (Silenor) 6 mg PO BEDTIME 04/04/21 03/05/22 hydroxyzine pamoate 25 mg capsule 25 mg PO BID PRN Anxiety 04/04/21 03/05/22 insulin lispro 100 unit/mL 14 unit subcut TID 04/04/21 03/05/22 subcutaneous pen lisinopril 10 mg tablet 10 mg PO DAILY 04/04/21 03/05/22 omeprazole 20 mg capsule,delayed 20 mg PO DAILY@0630 04/04/21 03/05/22 release acetaminophen 325 mg tablet 650 mg PO QID PRN Pain 03/05/22 03/05/22 atorvastatin 80 mg tablet 40 mg PO BEDTIME 03/05/22 03/05/22 carvedilol 3.125 mg tablet 3.125 mg PO BIDWM 03/05/22 03/05/22 furosemide 20 mg tablet 20 mg PO DAILY PRN Weight Gain 03/05/22 03/05/22 insulin glargine 100 unit/mL (3 30 unit subcut BEDTIME 03/05/22 03/05/22 mL) subcutaneous pen (Lantus Solostar U-100 Insulin) lamotrigine 100 mg tablet 50 mg PO DAILY 03/05/22 03/05/22 lidocaine 5 % topical patch 1 patch topical DAILY 03/05/22 03/05/22 Allergies Allergy/AdvReac Type Severity Reaction Status Date / Time quetiapine [From Seroquel] Allergy Mild LEG Verified 10/30/21 03:28 SWELLING onion [Onion] AdvReac Unknown NAUSEA & Verified 10/30/21 03:28 VOMITING PEPPERS AdvReac Mild NAUSEA & Uncoded 08/09/21 10:51 VOMITING Review of Systems Review of Systems: Constitutional: No weight loss. No fever. No chills. Positive weakness. No fatigue. Eye: No swelling. No redness. ENT: No sore throat. No rhinorrhea. No nasal congestion. No sore throat. No difficulty swallowing. Skin: No rash. No itching. Cardiovascular: No chest pain. No chest pressure. No palpitations. No pedal edema. Respiratory: No shortness of breath. Positive cough. Positive sputum production. Gastrointestinal: No nausea. No vomiting. No diarrhea. No abdominal pain. No blood in stool. Genitourinary: No burning micturition. No urinary frequency. No incontinence. Neurologic: No headache. No dizziness. No pre-syncope/ syncope. No unilateral weakness. No ataxia. No numbness. No tingling. No change in bowel or bladder control. Musculoskeletal: No muscle pain. No back pain. No joint pain. No stiffness. Hematologic: No bleeding. No bruising. Lymphatics: No enlarged lymph nodes. Psychiatric: Positive depression. No anxiety. Endocrine: No polyuria. No polydipsia. Yes all other systems are reviewed and are negative [facility] Past Medical History Attestation statement: The following information was validated with the patient. Source: old records reviewed Medical History (Updated 03/05/22 @ 17:25 by Lori Gonzales CNP) Anxiety Cardiomyopathy Coronary artery disease 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 Nephrolithiasis Neurogenic bladder NSTEMI (non-ST elevated myocardial infarction) Prostate cancer Sleep apnea Surgical History History of cardiac cath S/P cardiac cath Family History Family History Father CAD (coronary artery disease) Pacemaker Social History Social History Household Members: Spouse Housing: House Alcohol intake: never Patient Tobacco Use Status: Current everyday Tobacco user Cigarette Packs Per Day: 2 Advance Directives: Yes Advance Directives on File: Yes Advance Directives Date on File: 04/12/21 service: Yes Current occupational status: disabled Physical Exam Vital Signs: Vital Signs: Last Vital Signs Temp 97.8 F 03/05/22 09:03 Pulse 105 H 03/05/22 16:11 Resp 18 03/05/22 16:11 BP 152/92 H 03/05/22 16:11 Pulse Ox 94 03/05/22 16:11 O2 Del Method 03/05/22 16:11 O2 Flow Rate 2 03/05/22 16:11 BMI result Body Mass Index 41.9 Appearance: Alert.?Oriented to person, place and time. No acute distress.? Appears disheveled Eyes: Pupils equal, round and reactive to light.? ENT: Pharynx normal.?? Neck: Normal inspection.? Neck supple.?? CVS: Heart sounds normal. Normal heart rate and rhythm.? Pulses normal.?? Respiratory: No respiratory distress.? Lung sounds coarse bilaterally diminished at the bases? Abdomen: Soft and non-tender. Normoactive bowel sounds. Skin: Skin warm and dry.? Normal skin color.? Extremities: 2+ bilateral lower extremity edema, circumferential erythema calf to ankle, which is baseline per patient's , although left lower extremity of appears increasingly more erythematous than the right and it is warm to touch.. No calf ttp.?decreased AROM to bilateral knees. Positive 2+ DP/PT pulse bilaterally Neuro: Moves all extremities spontaneously. Sensation intact bilaterally. CN II- XII intact. No focal neuro deficits. Course Course Course Narrative: Patient is a 66-year-old male with a past medical history of CA, nephrolithiasis, ASCVD, an STEMI, cardiomyopathy, obstructive sleep apnea, CHF with most recent LVEF 40% 03/2021, and COPD. Presenting to the emergency department via EMS after multiple falls at home. At the time of examination patient has no focal neurological deficits. He is able to move all extremities, although does have decreased range of motion to the bilateral knees and is reporting pain. Extremities are neurovascularly intact distally. At the time examination patient noted to be hypoxic with room air saturation of 90%, tachycardic with heart rate 110, afebrile. Lung sounds coarse bilaterally diminished at the bases. He is an active cigarette smoker and reports history of COPD but no O2 dependence. Concern for COPD exacerbation, patient to receive ceftriaxone IV and azithromycin. Concern for left lower extremity cellulitis versus chronic stasis dermatitis. Will obtain CBC to evaluate for leukocytosis/ anemia, CMP to evaluate for abnormal electrolytes /abnormal renal function/ abnormal hepatic function, EKG and troponin to evaluate for ischemia/ACS, blood cultures x2 and lactic acid. Chest x-ray to evaluate for consolidation/ infiltrate/ mass/ pulmonary congestion, CT head and cervical spine this patient is a vague historian surrounding these falls, XR the bilateral knees and Urinalysis. Reevaluation(s) Reevaluation #1: CBC without leukocytosis. CMP is overall unremarkable. Troponin 6.9, EKG reveals normal sinus rhythm and right bundle-branch block which noted on prior EKG, no evidence of acute ischemia. Magnesium 1.2, patient will receive magnesium sulfate 2 g IV. COVID-19 and influenza testing are negative. Lactic acid is normal. Urinalysis without evidence of UTI. CT of the head reveals no acute intracranial findings, motion artifact of the cervical spine but no obvious compression deformity or fracture. Chest x-ray reveals right basilar opacity which may reflect atelectasis versus infiltrate and age indeterminate compression fracture 2 vertebrae of the thoracic spine urine compared to prior CT from 04/2019. Patient denies any back pain, no palpable tenderness upon palpation. Plan to obtain CT of the chest for further evaluation of possible pneumonia. XR the bilateral knees without evidence of acute fracture dislocation Time: 10:55 Reevaluation #2: Room air hypoxia with O2 saturation between 86-88% while at rest. Apply 2 L via nasal cannula, with O2 saturation up to 93%. CT of the chest reveals no evidence of pneumonia, atelectasis is present and centrilobular emphysema. Noted circumferential thickening of the esophagus which may be secondary to reflux esophagitis, declined abdominal pain, chest pain, nausea/vomiting, heartburn. CT also reveals compression deformities of T7 and T8 which are new since prior chest CT in 2019, patient denies any falls with injury to back, no palpable tenderness upon palpation, suspect fractures to be old. Given patient's hypoxia, no O2 at home, will speak to hospitalist for admission to medicine service of COPD exacerbation with hypoxia. Patient accepted for admission Time: 14:29 MDM - Fall Medical Records Attestation: I reviewed the patient's medical records. Lab Data Attestation: I reviewed the patient's lab results. Result diagrams: 03/05/22 08:37 03/05/22 08:37 Labs: Lab Results 03/05/22 03/05/22 03/05/22 Range/Units 08:12 08:36 08:36 WBC (4.8-10.8) X10*3/uL RBC (4.60-5.80) X10*6/uL Hgb (14.0-18.0) g/dl Hct (42.0-52.0) % MCV (80.0-98.0) fL MCH (27.0-33.0) pg MCHC (31.0-36.0) g/dl RDW (11.0-16.0) % Plt Count (160-400) X10*3/uL MPV (9.4-12.4) fL Immature Gran % (Auto) (0.0-0.4) % Neut % (Auto) (45-73) % Lymph % (Auto) (20-40) % Christian % (Auto) (2-11) % Eos % (Auto) (0-4) % Baso % (Auto) (0-2) % Lymph # (Auto) (1.2-4.9) X10*3/uL Christian # (Auto) (0.1-1.2) X10*3/uL Eos # (Auto) (0.0-0.4) X10*3/uL Baso # (Auto) (0.0-0.2) X10*3/uL Abs Immat Gran (auto) (0.00-0.03) X10*3/uL Absolute Neuts (auto) (2.0-8.3) x10*3/uL Absolute Nucleated RBC (0.0-0.012) X10*3/uL Nucleated RBC % (auto) (0.0-0.2) /100WBC Sodium (135-145) mmol/L Potassium (3.3-5.1) mmol/L Chloride (96-108) mmol/L Carbon Dioxide (22-29) mmol/L Anion Gap (12-20) BUN (9-16) mg/dL Creatinine (0.5-1.4) mg/dL Estim Creat Clear Calc Estimated GFR POC Glucose 101 (60-115) mg/dL Random Glucose (60-115) mg/dL Lactic Acid 1.3 (0.5-2.0) mmol/L Calcium (8.4-10.2) mg/dL Magnesium (1.6-2.6) mg/dL Total Bilirubin (0.0-1.0) mg/dL AST (5-37) U/L ALT (0-40) U/L Alkaline Phosphatase (39-117) U/L Troponin I High Sens (<3.5-35.0) ng/L B-Natriuretic Peptide (<100) pg/mL Total Protein (6.5-8.0) g/dL Albumin (3.5-5.0) g/dL Lipase (8-78) U/L Urine Color Urine Appearance Urine pH (5.0-9.0) Ur Specific Gipsy (1.005-1.025) Urine Protein (Neg-Trace) mg/dL Urine Glucose (UA) (Negative) mg/dL Urine Ketones (Negative) mg/dL Urine Blood (Negative) Urine Nitrite (Negative) Ur Leukocyte Esterase (Negative) Urine Opiates Screen (Not Detect) Urine Fentanyl Screen (Not Detect) Ur Barbiturates Screen (Not Detect) Ur Phencyclidine Scrn (Not Detect) Ur Amphetamines Screen (Not Detect) U Benzodiazepines Scrn (Not Detect) Urine Cocaine Screen (Not Detect) U Marijuana (THC) Screen (Not Detect) Ethyl Alcohol mg/dL COVID-19 (CARLIN) Negative (Negative) COVID-19 Clin Com See Note Influenza Type A (MITA) (Negative) Influenza Type B (MITA) (Negative) Influenza A & B Note 03/05/22 03/05/22 03/05/22 Range/Units 08:36 08:37 08:37 WBC 8.1 (4.8-10.8) X10*3/uL RBC 4.41 L (4.60-5.80) X10*6/uL Hgb 13.3 L (14.0-18.0) g/dl Hct 43.9 (42.0-52.0) % MCV 99.5 H (80.0-98.0) fL MCH 30.2 (27.0-33.0) pg MCHC 30.3 L (31.0-36.0) g/dl RDW 13.2 (11.0-16.0) % Plt Count 126 L (160-400) X10*3/uL MPV 10.2 (9.4-12.4) fL Immature Gran % (Auto) 0.4 (0.0-0.4) % Neut % (Auto) 75.3 H (45-73) % Lymph % (Auto) 13.9 L (20-40) % Christian % (Auto) 7.6 (2-11) % Eos % (Auto) 2.6 (0-4) % Baso % (Auto) 0.2 (0-2) % Lymph # (Auto) 1.1 L (1.2-4.9) X10*3/uL Christian # (Auto) 0.6 (0.1-1.2) X10*3/uL Eos # (Auto) 0.2 (0.0-0.4) X10*3/uL Baso # (Auto) 0.0 (0.0-0.2) X10*3/uL Abs Immat Gran (auto) 0.03 (0.00-0.03) X10*3/uL Absolute Neuts (auto) 6.1 (2.0-8.3) x10*3/uL Absolute Nucleated RBC 0.000 (0.0-0.012) X10*3/uL Nucleated RBC % (auto) 0.0 (0.0-0.2) /100WBC Sodium 144 (135-145) mmol/L Potassium 5.1 (3.3-5.1) mmol/L Chloride 110 H (96-108) mmol/L Carbon Dioxide 27 (22-29) mmol/L Anion Gap 12 (12-20) BUN 15 (9-16) mg/dL Creatinine 1.40 (0.5-1.4) mg/dL Estim Creat Clear Calc 61.0 Estimated GFR 50 POC Glucose (60-115) mg/dL Random Glucose 101 D (60-115) mg/dL Lactic Acid (0.5-2.0) mmol/L Calcium 9.0 (8.4-10.2) mg/dL Magnesium 1.2 L* (1.6-2.6) mg/dL Total Bilirubin 0.4 (0.0-1.0) mg/dL AST 18 (5-37) U/L ALT 14 (0-40) U/L Alkaline Phosphatase 110 (39-117) U/L Troponin I High Sens (<3.5-35.0) ng/L B-Natriuretic Peptide (<100) pg/mL Total Protein 6.3 L (6.5-8.0) g/dL Albumin 3.6 (3.5-5.0) g/dL Lipase < 4 L (8-78) U/L Urine Color Urine Appearance Urine pH (5.0-9.0) Ur Specific Gipsy (1.005-1.025) Urine Protein (Neg-Trace) mg/dL Urine Glucose (UA) (Negative) mg/dL Urine Ketones (Negative) mg/dL Urine Blood (Negative) Urine Nitrite (Negative) Ur Leukocyte Esterase (Negative) Urine Opiates Screen (Not Detect) Urine Fentanyl Screen (Not Detect) Ur Barbiturates Screen (Not Detect) Ur Phencyclidine Scrn (Not Detect) Ur Amphetamines Screen (Not Detect) U Benzodiazepines Scrn (Not Detect) Urine Cocaine Screen (Not Detect) U Marijuana (THC) Screen (Not Detect) Ethyl Alcohol < 10 mg/dL COVID-19 (CARLIN) (Negative) COVID-19 Clin Com Influenza Type A (MITA) Negative (Negative) Influenza Type B (MITA) Negative (Negative) Influenza A & B Note See Note 03/05/22 03/05/22 03/05/22 Range/Units 08:37 08:37 09:45 WBC (4.8-10.8) X10*3/uL RBC (4.60-5.80) X10*6/uL Hgb (14.0-18.0) g/dl Hct (42.0-52.0) % MCV (80.0-98.0) fL MCH (27.0-33.0) pg MCHC (31.0-36.0) g/dl RDW (11.0-16.0) % Plt Count (160-400) X10*3/uL MPV (9.4-12.4) fL Immature Gran % (Auto) (0.0-0.4) % Neut % (Auto) (45-73) % Lymph % (Auto) (20-40) % Christian % (Auto) (2-11) % Eos % (Auto) (0-4) % Baso % (Auto) (0-2) % Lymph # (Auto) (1.2-4.9) X10*3/uL Christian # (Auto) (0.1-1.2) X10*3/uL Eos # (Auto) (0.0-0.4) X10*3/uL Baso # (Auto) (0.0-0.2) X10*3/uL Abs Immat Gran (auto) (0.00-0.03) X10*3/uL Absolute Neuts (auto) (2.0-8.3) x10*3/uL Absolute Nucleated RBC (0.0-0.012) X10*3/uL Nucleated RBC % (auto) (0.0-0.2) /100WBC Sodium (135-145) mmol/L Potassium (3.3-5.1) mmol/L Chloride (96-108) mmol/L Carbon Dioxide (22-29) mmol/L Anion Gap (12-20) BUN (9-16) mg/dL Creatinine (0.5-1.4) mg/dL Estim Creat Clear Calc Estimated GFR POC Glucose (60-115) mg/dL Random Glucose (60-115) mg/dL Lactic Acid (0.5-2.0) mmol/L Calcium (8.4-10.2) mg/dL Magnesium (1.6-2.6) mg/dL Total Bilirubin (0.0-1.0) mg/dL AST (5-37) U/L ALT (0-40) U/L Alkaline Phosphatase (39-117) U/L Troponin I High Sens 6.9 (<3.5-35.0) ng/L B-Natriuretic Peptide 105 H (<100) pg/mL Total Protein (6.5-8.0) g/dL Albumin (3.5-5.0) g/dL Lipase (8-78) U/L Urine Color Yellow Urine Appearance Clear Urine pH 5.5 (5.0-9.0) Ur Specific Gipsy 1.015 (1.005-1.025) Urine Protein Trace (Neg-Trace) mg/dL Urine Glucose (UA) 100 H (Negative) mg/dL Urine Ketones Negative (Negative) mg/dL Urine Blood Negative (Negative) Urine Nitrite Negative (Negative) Ur Leukocyte Esterase Negative (Negative) Urine Opiates Screen (Not Detect) Urine Fentanyl Screen (Not Detect) Ur Barbiturates Screen (Not Detect) Ur Phencyclidine Scrn (Not Detect) Ur Amphetamines Screen (Not Detect) U Benzodiazepines Scrn (Not Detect) Urine Cocaine Screen (Not Detect) U Marijuana (THC) Screen (Not Detect) Ethyl Alcohol mg/dL COVID-19 (CARLIN) (Negative) COVID-19 Clin Com Influenza Type A (MITA) (Negative) Influenza Type B (MITA) (Negative) Influenza A & B Note 03/05/22 Range/Units 09:45 WBC (4.8-10.8) X10*3/uL RBC (4.60-5.80) X10*6/uL Hgb (14.0-18.0) g/dl Hct (42.0-52.0) % MCV (80.0-98.0) fL MCH (27.0-33.0) pg MCHC (31.0-36.0) g/dl RDW (11.0-16.0) % Plt Count (160-400) X10*3/uL MPV (9.4-12.4) fL Immature Gran % (Auto) (0.0-0.4) % Neut % (Auto) (45-73) % Lymph % (Auto) (20-40) % Christian % (Auto) (2-11) % Eos % (Auto) (0-4) % Baso % (Auto) (0-2) % Lymph # (Auto) (1.2-4.9) X10*3/uL Christian # (Auto) (0.1-1.2) X10*3/uL Eos # (Auto) (0.0-0.4) X10*3/uL Baso # (Auto) (0.0-0.2) X10*3/uL Abs Immat Gran (auto) (0.00-0.03) X10*3/uL Absolute Neuts (auto) (2.0-8.3) x10*3/uL Absolute Nucleated RBC (0.0-0.012) X10*3/uL Nucleated RBC % (auto) (0.0-0.2) /100WBC Sodium (135-145) mmol/L Potassium (3.3-5.1) mmol/L Chloride (96-108) mmol/L Carbon Dioxide (22-29) mmol/L Anion Gap (12-20) BUN (9-16) mg/dL Creatinine (0.5-1.4) mg/dL Estim Creat Clear Calc Estimated GFR POC Glucose (60-115) mg/dL Random Glucose (60-115) mg/dL Lactic Acid (0.5-2.0) mmol/L Calcium (8.4-10.2) mg/dL Magnesium (1.6-2.6) mg/dL Total Bilirubin (0.0-1.0) mg/dL AST (5-37) U/L ALT (0-40) U/L Alkaline Phosphatase (39-117) U/L Troponin I High Sens (<3.5-35.0) ng/L B-Natriuretic Peptide (<100) pg/mL Total Protein (6.5-8.0) g/dL Albumin (3.5-5.0) g/dL Lipase (8-78) U/L Urine Color Urine Appearance Urine pH (5.0-9.0) Ur Specific Gipsy (1.005-1.025) Urine Protein (Neg-Trace) mg/dL Urine Glucose (UA) (Negative) mg/dL Urine Ketones (Negative) mg/dL Urine Blood (Negative) Urine Nitrite (Negative) Ur Leukocyte Esterase (Negative) Urine Opiates Screen Not Detected (Not Detect) Urine Fentanyl Screen Not Detected (Not Detect) Ur Barbiturates Screen Not Detected (Not Detect) Ur Phencyclidine Scrn Not Detected (Not Detect) Ur Amphetamines Screen Not Detected (Not Detect) U Benzodiazepines Scrn Not Detected (Not Detect) Urine Cocaine Screen Not Detected (Not Detect) U Marijuana (THC) Screen Not Detected (Not Detect) Ethyl Alcohol mg/dL COVID-19 (CARLIN) (Negative) COVID-19 Clin Com Influenza Type A (MITA) (Negative) Influenza Type B (MITA) (Negative) Influenza A & B Note Imaging Data Chest x-ray: Radiologist's impression: XR/XR chest 2V IMPRESSION: Right basilar opacity could reflect atelectasis or infiltrate. ? Age indeterminate compression fracture of 2 vertebrae in the mid thoracic spine. This appears new as compared to the prior CT from 04/30/2019. Clinically correlate. Further evaluation with MRI as clinically warranted. CT scan - head: Radiologist's impression: CT/CT head/brain wo IV con IMPRESSION: 1.? No CT evidence of acute intracranial hemorrhage or edematous territorial infarction. 2.? Limited evaluation of the cervical spine, motion artifact degrading images, limiting evaluation. No CT evidence of obvious vertebral body compression deformity or obvious fracture in the cervical spine, but evaluation is limited. Repeat CT scan as clinically warranted. XR knee: Radiologist's impression: XR/XR knee RT 3V IMPRESSION: No radiographically evident acute fracture or dislocation. XR/XR knee LT 3V IMPRESSION: No radiographically evident acute fracture or dislocation.? ECG Data Attestation: I personally reviewed and interpreted this ECG as follows: ECG interpretation date: 03/05/22 Prior ECG tracings: available for review Interpretation: Rate: 83 Rhythm:? Normal sinus rhythm with right bundle branch block noted on prior EKG [facility]:? Normal Normal P waves.? Normal JAYJAY.?? Normal QRS complex.?? ST T wave :??No ST elevation, no ST depression qTC: 455 prior studies:? October 2021 The study has been interpreted contemporaneously by me. Discharge Plan Discharge Clinical Impression: Acute exacerbation of chronic obstructive pulmonary disease (COPD), Fall, Acute respiratory failure with hypoxia Patient Disposition: Admitted As Inpatient
[2022-03-05 08:44] LABS: MANUAL DIFF FLAG NO
[2022-03-05 08:48] LABS: Glucose, Whole Blood 101 mg/dL (60-115)
--- OUTSIDE RECORDS SUMMARY | 2022-03-05 08:49 | XMS_ITS | Continuity of Care Document ---
:1955 Author Organization [facility] Address [address] [place] [address]- Care Team Providers Name Role Phone Not on Staff, PCP Primary Care Physician Unavailable Encounter [facility] Date(s): 01/29/22 - 02/01/[address] [address]- Discharge Disposition: A-D/C Home Attending Physician: Jorge Rai MD Admitting Physician: Jorge Rai MD Referring Physician: Not on Staff, Referring MD Allergies, Adverse Reactions, Alerts Substance Reaction Severity Status Other Food Allergy1 Active Onions Active SEROquel Active 1Green peppers Immunizations Given and Recorded Vaccine Date Status Refusal Reason tetanus/diphtheria/pertussis, acel(Tdap) 01/22/22 Given Medications atorvastatin 40 mg oral tablet 1 tablet = 40 mg, By Mouth, Daily at bedtime, 0 Refills, Maintenance, 01/25/22 16:06:00 EDT, Tablet,Partial fill upon patient request if the prescription is for a schedule II opioid drug. Start Date: 01/25/22 Status: Orderedcarvedilol 3.125 mg oral tablet 3.125 mg, 1, tablet, By Mouth, 2 times a day, Refills 0, Maintenance, 01/25/22 16:06:00 EDT, Partialfill upon patient request if the prescription is for a schedule II opioid drug. Start Date: 01/25/22 Status: Orderedcholecalciferol 400 iu oral tablet By Mouth, Daily, 0 Refills, Maintenance, 01/25/22 16:06:00 EDT, Tablet, Partial fill upon patient request if the prescription is for a schedule II opioid drug. Start Date: 01/25/22 Status: OrderedclonazePAM 1 mg oral tablet 1 tablet = 1 mg, By Mouth, 3 times a day, 0 Refills, Maintenance, 01/25/22 16:06:00 EDT, Tablet, Partial fill upon patient request if the prescription is for a schedule II opioid drug. Start Date: 01/25/22 Status: OrderedClotrimazole 1% Topical 1 applicator, Topically, 2 times a day, 0 Refills, Maintenance, Cream Start Date: 01/25/22 Status: Ordereddocusate-senna 50 mg-8.6 mg oral capsule 1 tablet, By Mouth, 2 times a day, 0 Refills, Maintenance, 01/25/22 16:07:00 EDT, Capsule, Partial fill upon patient request if the prescription is for a schedule II opioid drug. Start Date: 01/25/22 Status: Orderedfluticasone-vilanterol Inhalation, Daily, 0 Refills, Maintenance, 01/25/22 16:07:00 EDT, Inhaler, Partial fill upon patientrequest if the prescription is for a schedule II opioid drug. Start Date: 01/25/22 Status: OrderedguaiFENesin 100 mg/5 mL oral liquid 10 mL = 200 mg, By Mouth, 3 times a day, 0 Refills, Maintenance, 01/25/22 16:07:00 EDT, Syrup, Partial fill upon patient request if the prescription is for a schedule II opioid drug. Start Date: 01/25/22 Status: OrderedhydrOXYzine pamoate 25 mg oral capsule 1 capsule = 25 mg, By Mouth, 2 times a day, PRN Anxiety, 0 Refills, Maintenance, 01/25/22 16:07:00 EDT, Capsule, Partial fill upon patient request if the prescription is for a schedule II opioid drug. Start Date: 01/25/22 Status: OrderedInsulin Glargine Inj 0.32 mL = 32 units, Subcutaneous Injection, Daily at bedtime, 0 Refills, Maintenance, 01/25/22 16:07:00 EDT, Injection, Partial fill upon patient request if the prescription is for a schedule II opioiddrug. Start Date: 01/25/22 Status: OrderedInsulin Lispro 2-10 units, Subcutaneous Injection, 3 times a day before meals, << Sliding Scale Comments >> 150 - 199 2 units Call if less than 70 200 - 249 4 units 250 - 299 6 units 300 - 349 8 units 350- 399 10 units Call if greater than 400 <<... Start Date: 01/25/22 Status: Orderedlisinopril 10 mg oral tablet 10 mg, 1, tablet, By Mouth, Daily, Refills 0, Maintenance, 01/25/22 16:08:00 EDT, Partial fill upon patient request if the prescription is for a schedule II opioid drug. Start Date: 01/25/22 Status: Orderedmagnesium oxide 400 mg oral tablet 0.5 tablet = 200 mg, By Mouth, 2 times a day, 0 Refills, Maintenance, 01/25/22 16:08:00 EDT, Tablet,Partial fill upon patient request if the prescription is for a schedule II opioid drug. Start Date: 01/25/22 Status: OrderedOXcarbazepine 600 mg oral tablet 1 tablet = 600 mg, By Mouth, 2 times a day, # 60 tablet, 0 Refills, Maintenance, 01/25/22 16:08:00 EDT, Tablet, Partial fill upon patient request if the prescription is for a schedule II opioid drug., 178, cm, 01/25/22 10:01:00 EDT, Height, 111, kg, 0... Start Date: 01/25/22 Status: OrderedTiotropium Inhalation, Daily, 0 Refills, Maintenance, 01/25/22 16:09:00 EDT, Inhaler, Partial fill upon patientrequest if the prescription is for a schedule II opioid drug. Start Date: 01/25/22 Status: OrderedVashe Topical Solution 1 applicator, Topically, Every third day, 0 Refills, Maintenance, Solution Start Date: 01/25/22 Status: Ordered Problem List Condition Effective Dates Status Health Status Informant Obese class II(Confirmed) Active Results Radiology Reports Exam Date Time Procedure Performing Provider Status 01/31/22 7:07 PM Chest 2 Views Frontal and Lat Camron Castro; Maribel (Verified) Notes:(Chest 2 Views Frontal and Lat) Reason For Exam: AnginaRESULT: Chest 2 Views Frontal and Lat Chest 2 Views Frontal and Lat Hx of Present Illness: Pt to ED via EMS c o SI w plan to jump off bridge. Crisis on scene at home. Has hx of bipolar, MDD, PTSD. Pt has hx of SI in past. Pt arrives calm and cooperative. Denies HI, AVH. On section 12.; Reason: Angina; Clinical Question(s): CHF; Order Comment: watch patient COMPARISON: 01/19/2022 FINDINGS: LINES AND TUBES: None. LUNGS AND PLEURA: Low lung volumes with mild basilar atelectasis. Lungs are otherwise clear with no consolidation. No pleural effusion. No pneumothorax. HEART, MEDIASTINUM AND VARUN: Heart is normal in size. Normal mediastinal and hilar contour. BONES AND SOFT TISSUES: No acute abnormality. IMPRESSION: No acute abnormality. WSN: [id number] Ordering Physician: Micaela Chairez Dictated By: Todd Sifuentes MD Dictated Date/Time: 01/31/22 7:10 pm Reviewed By: Todd Sifuentes MD Signed By: Todd Sifuentes MD Signed Date/Time: 01/31/22 7:10 pm Transcribed By: JOSE Transcribed Date/Time: 01/31/22 7:10 pm Vital Signs Most recent to oldest 1 2 3 [Reference Range]: Oxygen Saturation [94-100 %] 99 % 98 % 97 % (02/01/22 3:46 PM) (02/01/22 8:18 AM) (02/01/22 6:4 5 AM) Pulse Rate [55-90 bpm] 67 bpm 65 bpm 89 bpm (02/01/22 3:46 PM) (02/01/22 8:18 AM) (02/01/22 6:4 5 AM) Blood Pressure [90-138/55-84 mm 154/74 mm Hg 156/64 mm Hg 160/78 mm Hg Hg] *H* *H* *H* (02/01/22 3:46 PM) (02/01/22 8:18 AM) (02/01/22 6:4 5 AM) Respiratory Rate [16-30 br/min] 15 br/min 16 br/min 18 br/min *L* (02/01/22 8:18 AM) (01/31/22 9:55 PM) (02/01/22 3:46 PM) Temperature [96.8-100.4 DegF] 97.5 DegF 98.6 DegF 98 .4 DegF (02/01/22 8:18 AM) (01/31/22 6:32 PM) (01/31/22 7:4 1 AM) Mode of Delivery (Oxygen) Room air Room air Room a ir (02/01/22 3:46 PM) (02/01/22 8:18 AM) (02/01/22 6:4 5 AM) Blood pressure sites Arm, right Arm, right Arm, right (01/31/22 6:32 PM) (01/31/22 7:41 AM) (01/31/22 5:0 6 AM) Temperature Route Oral Oral Oral (02/01/22 8:18 AM) (01/31/22 6:32 PM) (01/31/22 7:4 1 AM) Social History Social History Type Response Smoking Status 10 or more cigarettes (1/2 p ack or more)/day in last 30 days; Interested in cessation: No; Patient wants NRT during admission No entered on: 01/20/22 Sex Note BHSPowerscribe , CIS S: TRANSCRIBE Todd Sifuentes MD: VERIFY Event Display: Result: Authored Date: [id number] Chest 2 Views Frontal and Lat Hx of Present Illness: Pt to ED via EMS c o SI w plan to jump off bridge. Crisis on scene at home. Has hx of bipolar, MDD, PTSD. Pt has hx of SI in past. Pt arrives calm and cooperative. Denies HI, AVH. On section 12.; Reason: Angina; Clinical Question(s): CHF; Order Comment: watch patient COMPARISON: 01/19/2022 FINDINGS: LINES AND TUBES: None. LUNGS AND PLEURA: Low lung volumes with mild basilar atelectasis. Lungs are otherwise clear with no consolidation. No pleural effusion. No pneumothorax. HEART, MEDIASTINUM AND VARUN: Heart is normal in size. Normal mediastinal and hilar contour. BONES AND SOFT TISSUES: No acute abnormality. IMPRESSION: No acute abnormality. WSN: [id number] Ordering Physician: Micaela Chairez Dictated By: Todd Sifuentes MD Dictated Date/Time: 01/31/22 7:10 pm Reviewed By: Todd Sifuentes MD Signed By: Todd Sifuentes MD Signed Date/Time: 01/31/22 7:10 pm Transcribed By: JOSE Transcribed Date/Time: 01/31/22 7:10 pm Care Team PersonnelName: Not on Staff, PCP
[2022-03-05 08:51] LABS: Basophils Percent Auto 0.2 % (0-2); Eosinophils Absolute Auto 0.2 X10*3/uL (0.0-0.4); Eosinophils Percent Auto 2.6 % (0-4); Hematocrit 43.9 % (42.0-52.0); Hemoglobin 13.3 g/dl (14.0-18.0); Imm Gran Abs Auto 0.03 X10*3/uL (0.00-0.03); Imm Gran Pct Auto 0.4 % (0.0-0.4); Lymphocytes Absolute Auto 1.1 X10*3/uL (1.2-4.9); Lymphocytes Percent Auto 13.9 % (20-40); Mean Corpuscular HGB Conc 30.3 g/dl (31.0-36.0); Mean Corpuscular Hemoglobin 30.2 pg (27.0-33.0); Mean Corpuscular Volume 99.5 fL (80.0-98.0); Mean Platelet Volume 10.2 fL (9.4-12.4); Monocytes Absolute Auto 0.6 X10*3/uL (0.1-1.2); Monocytes Percent Auto 7.6 % (2-11); Neutrophils Absolute Auto 6.1 x10*3/uL (2.0-8.3); Neutrophils Percent Auto 75.3 % (45-73); Platelet Count 126 X10*3/uL (160-400); Red Blood Count 4.41 X10*6/uL (4.60-5.80); Red Cell Distribution Width 13.2 % (11.0-16.0); White Blood Count 8.1 X10*3/uL (4.8-10.8)
--- NOTE | 2022-03-05 08:54 | PC.NURSE ---
patient a/ox4 . drowsy , able to awaken when spoken to . lungs diminished smokes 3 packs of cigarettes a day . non productive dry cough . 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 right hand has two blisters and singe ray associated with cigrette use . heart rate regular at 99 beats per minute . left lower ankle swollen and red , warm to touch . right lower left ankle slightly red . patient abdomen soft , not tender and positive for bowel sounds in all four quadrants . IV placed in left AC . labs sent . EKG done . patient placed on monitor . at bedside . patient and family aware of plan of care .
[2022-03-05 08:56] LABS: Lactic Acid 1.3 mmol/L (0.5-2.0)
[2022-03-05 09:01] LABS: COVID-19 Test Negative (Negative); IDNOW Serial# 16C4AD1C; Influenza A Negative (Negative); Influenza B2 Negative (Negative)
[2022-03-05 09:04] LABS: Alanine Aminotransferase 14 U/L (0-40); Albumin Level 3.6 g/dL (3.5-5.0); Alkaline Phosphatase 110 U/L (39-117); Anion Gap 12 (12-20); Aspartate Amino Transferase 18 U/L (5-37); Bilirubin Total 0.4 mg/dL (0.0-1.0); Blood Urea Nitrogen 15 mg/dL (9-16); Carbon Dioxide 27 mmol/L (22-29); Chloride 110 mmol/L (96-108); Estimated Glomerular Filt Rate 50; Ethanol < 10 mg/dL; Glucose Random 101 mg/dL (60-115); Lipase < 4 U/L (8-78); Magnesium 1.2 mg/dL (1.6-2.6); Potassium 5.1 mmol/L (3.3-5.1); Sodium 144 mmol/L (135-145); Total Protein 6.3 g/dL (6.5-8.0)
[2022-03-05 09:07] LABS: B Type Natriuretic Peptide 105 pg/mL (<100)
[2022-03-05 09:08] LABS: Troponin-I High Sensitivity 6.9 ng/L (<3.5-35.0)
[2022-03-05] MEDS: cefTRIAXone sodium 1 GM in 0.9 % Sodium Chloride 50 ML IV (09:40)
[2022-03-05] MEDS: Magnesium Sulfate/H2O 2 GM/50 ML PIGGYBACK IV (09:57)
[2022-03-05 09:58] LABS: Appearance Urine Clear; Color Urine Yellow; Glucose Urine UA 100 mg/dL (Negative); Leukocyte Esterase Urine Negative (Negative); Nitrite Urine Negative (Negative); PH 5.5 (5.0-9.0); Specific Gravity - Urine 1.015 (1.005-1.025); Urine Blood Negative (Negative); Urine Ketones Negative (Negative); Urine Protein Trace mg/dL (Neg-Trace)
[2022-03-05 10:13] LABS: Amphetamine Screen Urine Not Detected (Not Detect); Barbiturates, Urine Not Detected (Not Detect); Benzodiazepines Screen Urine Not Detected (Not Detect); Cannabinoid Screen Urine Not Detected (Not Detect); Cocaine Screen Urine Not Detected (Not Detect); Fentanyl, urine Not Detected (Not Detect); Opiate Screen Urine Not Detected (Not Detect); Phencyclidine Screen Urine Not Detected (Not Detect)
[2022-03-05] MEDS: Azithromycin 500 MG in 0.9 % Sodium Chloride 250 ML 125 MG IV (10:25)
[2022-03-05] MEDS: ondansetron HCL 4 MG/2 ML VIAL IVPUSH (12:22)
--- NOTE | 2022-03-05 15:09 | P.HPHOSP_ITS ---
History of Present Illness Date of Service: 03/05/22 Chief Complaint: Fall 58-year-old man presented to the ER after multiple falls at home. Patient reports them as mechanical as he tripped on a rock in his home felt his knee. He had another fall this morning and landed on his right knee. He denied any trauma to his head. He reports feeling his legs weak But no loss of consciousness It appears as family insisted that he come to the hospital. While here he was also found to be an acute hypoxic respiratory failure secondary to COPD. He denies chest pain, nausea, vomiting, diarrhea, no fever leukocytosis no ryan, magnesium 1.2. In the ER, he was given Rocephin, azithromycin, IV magnesium dose of of Zofran. Placed on observation for COPD exacerbation and falls. Review of Systems Review of Systems: Denies any recent fever chills or decrease in appetite respiratory denies any shortness of breath coverage production cardiovascular denies chest pain gastrointestinal denies any dysphagia abdominal pain nausea vomiting or diarrhea genitourinary denies any dysuria frequency or hematuria musculoskeletal denies any joint pain or swelling neuropsych denies any weakness or seizures all other systems reviewed are negative [facility] Medical History (Updated 03/05/22 @ 17:25 by Lori Gonzales CNP) Anxiety Cardiomyopathy Coronary artery disease 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 Nephrolithiasis Neurogenic bladder NSTEMI (non-ST elevated myocardial infarction) Prostate cancer Sleep apnea Family History Father CAD (coronary artery disease) Pacemaker Surgical History History of cardiac cath S/P cardiac cath Social History Household Members: Spouse Housing: House Do you presently have visiting nurse or other home services: No Alcohol intake: never Patient Tobacco Use Status: Current everyday Tobacco user Tobacco use type: Cigarette Cigarette Packs Per Day: 2.5 Cigarettes Per Day: 50.0 Smoked in Last 30 Days: Yes Patient Interested in Nicotine Replacement: No Patient Given Instructions on How to Stop Smoking: No Second Hand Smoke Exposure: Yes Use of substances other than those prescribed or required for medical reasons: No Currently Displaying Signs/Symptoms of Drug Intoxication Withdrawal: No Have you been hit, kicked, punched, or otherwise hurt by someone within the past year? If so, by whom?: No Do you feel safe in your current relationship?: Yes Is there a partner from a previous relationship who is making you feel unsafe now?: No Are you made to feel afraid or neglected: No Advance Directives: Yes Advance Directives on File: Yes Advance Directives Date on File: 04/12/21 Do you have thoughts of harming others: None Do you have a plan to hurt others: No Plan Recently lost weight without trying: No Nutrition Risks: No Nutritional Risk Poor oral hygiene: No service: Yes Current occupational status: disabled Meds Allergies Allergy/AdvReac Type Severity Reaction Status Date / Time quetiapine [From Seroquel] Allergy Mild LEG Verified 10/30/21 03:28 SWELLING onion [Onion] AdvReac Unknown NAUSEA & Verified 10/30/21 03:28 VOMITING PEPPERS AdvReac Mild NAUSEA & Uncoded 08/09/21 10:51 VOMITING Active Medications: Current Medications Acetaminophen (Acetaminophen 325 Mg Tablet) 650 mg PO Q6H PRN PRN Reason: Pain, Mild (Pain Scale 1-3) Albuterol Sulfate (Albuterol Sulfate (0.083%) 2.5 Mg/3 Ml Vial.Neb) 2.5 mg INHALE RQ4H WHILE AWAKE HUGO Heparin Sodium (Porcine) (Heparin Sodium,Porcine 5,000 Unit/Ml Vial) 5,000 unit SUBCUT Q12H HUGO Methylprednisolone Sodium Succinate (Methylprednisolone Sod Succ 40 Mg/Ml Vial) 40 mg IVPUSH Q6H HUGO Ondansetron HCl (Ondansetron Hcl 4 Mg/2 Ml Vial) 4 mg IVPUSH Q8H PRN PRN Reason: Nausea and Vomiting Pharmacy Consult (Consult Rx Perform Med Rec) 1 each MISCELLANE ONCE PRN PRN Reason: Consult order Sodium Chloride (0.9 % Sodium Chloride Flush 3 Ml Syringe) 3 ml IVFLUSH QSHIFT [facility] Home Medications Medication Instructions Recorded Confirmed Last Taken Type aspirin 81 mg tablet,delayed 81 mg PO DAILY 04/04/21 03/05/22 04/03/21 History release clonazepam 1 mg tablet 1 mg PO TID 04/04/21 03/05/22 04/03/21 History doxepin 6 mg tablet (Silenor) 6 mg PO BEDTIME 04/04/21 03/05/22 04/03/21 History hydroxyzine pamoate 25 mg capsule 25 mg PO BID PRN Anxiety 04/04/21 03/05/22 04/03/21 History insulin lispro 100 unit/mL 14 unit subcut TID 04/04/21 03/05/22 04/03/21 History subcutaneous pen lisinopril 10 mg tablet 10 mg PO DAILY 04/04/21 03/05/22 04/03/21 History omeprazole 20 mg capsule,delayed 20 mg PO DAILY@0630 04/04/21 03/05/22 04/03/21 History release acetaminophen 325 mg tablet 650 mg PO QID PRN Pain 03/05/22 03/05/22 Unknown History atorvastatin 80 mg tablet 40 mg PO BEDTIME 03/05/22 03/05/22 Unknown History carvedilol 3.125 mg tablet 3.125 mg PO BIDWM 03/05/22 03/05/22 Unknown History furosemide 20 mg tablet 20 mg PO DAILY PRN Weight Gain 03/05/22 03/05/22 Unknown History insulin glargine 100 unit/mL (3 30 unit subcut BEDTIME 03/05/22 03/05/22 Unknown History mL) subcutaneous pen (Lantus Solostar U-100 Insulin) lamotrigine 100 mg tablet 50 mg PO DAILY 03/05/22 03/05/22 Unknown History lidocaine 5 % topical patch 1 patch topical DAILY 03/05/22 03/05/22 Unknown History Physical Exam Vital Signs and Narrative: Vital Signs: Last Vital Signs Temp 97.8 F 03/05/22 09:03 Pulse 100 03/05/22 14:33 Resp 18 03/05/22 14:33 BP 157/79 H 03/05/22 14:33 Pulse Ox 94 03/05/22 14:33 O2 Del Method 03/05/22 14:33 BMI result Body Mass Index 41.9 Appearing in no acute distress head is normocephalic atraumatic eyes pupils are PERRLA sclera is anicteric mouth throat mucous membranes are intact and moist neck is supple no lymphadenopathy, no JVD noted lung sounds are clear to auscultation heart regular rate rhythm, clear S1, S2 positive bowel sounds, abdomen is soft, nontender neuro patient is alert x3, no focal deficits Results Labs CBC and Chem 7: 03/05/22 08:37 03/05/22 08:37 Labs: Laboratory Results - last 24 hr 03/05/22 03/05/22 03/05/22 08:12 08:36 08:36 MCV MCH MCHC RDW Plt Count MPV Immature Gran % (Auto) Neut % (Auto) Lymph % (Auto) Crawford % (Auto) Eos % (Auto) Baso % (Auto) Lymph # (Auto) Crawford # (Auto) Eos # (Auto) Baso # (Auto) Abs Immat Gran (auto) Absolute Neuts (auto) Absolute Nucleated RBC Nucleated RBC % (auto) Anion Gap Estim Creat Clear Calc Estimated GFR POC Glucose 101 Random Glucose Lactic Acid 1.3 Calcium Magnesium Total Bilirubin AST ALT Alkaline Phosphatase Troponin I High Sens B-Natriuretic Peptide Total Protein Albumin Lipase Urine Color Urine Appearance Urine pH Ur Specific [place] Urine Protein Urine Glucose (UA) Urine Ketones Urine Blood Urine Nitrite Ur Leukocyte Esterase Urine Opiates Screen Urine Fentanyl Screen Ur Barbiturates Screen Ur Phencyclidine Scrn Ur Amphetamines Screen U Benzodiazepines Scrn Urine Cocaine Screen U Marijuana (THC) Screen Ethyl Alcohol COVID-19 (CARLIN) Negative COVID-19 Clin Com See Note Influenza Type A (MITA) Influenza Type B (MITA) Influenza A & B Note 03/05/22 03/05/22 03/05/22 08:36 08:37 08:37 MCV 99.5 H MCH 30.2 MCHC 30.3 L RDW 13.2 Plt Count 126 L MPV 10.2 Immature Gran % (Auto) 0.4 Neut % (Auto) 75.3 H Lymph % (Auto) 13.9 L Crawford % (Auto) 7.6 Eos % (Auto) 2.6 Baso % (Auto) 0.2 Lymph # (Auto) 1.1 L Crawford # (Auto) 0.6 Eos # (Auto) 0.2 Baso # (Auto) 0.0 Abs Immat Gran (auto) 0.03 Absolute Neuts (auto) 6.1 Absolute Nucleated RBC 0.000 Nucleated RBC % (auto) 0.0 Anion Gap 12 Estim Creat Clear Calc 61.0 Estimated GFR 50 POC Glucose Random Glucose 101 D Lactic Acid Calcium 9.0 Magnesium 1.2 L* Total Bilirubin 0.4 AST 18 ALT 14 Alkaline Phosphatase 110 Troponin I High Sens B-Natriuretic Peptide Total Protein 6.3 L Albumin 3.6 Lipase < 4 L Urine Color Urine Appearance Urine pH Ur Specific [place] Urine Protein Urine Glucose (UA) Urine Ketones Urine Blood Urine Nitrite Ur Leukocyte Esterase Urine Opiates Screen Urine Fentanyl Screen Ur Barbiturates Screen Ur Phencyclidine Scrn Ur Amphetamines Screen U Benzodiazepines Scrn Urine Cocaine Screen U Marijuana (THC) Screen Ethyl Alcohol < 10 COVID-19 (CARLIN) COVID-19 Clin Com Influenza Type A (MITA) Negative Influenza Type B (MITA) Negative Influenza A & B Note See Note 03/05/22 03/05/22 03/05/22 08:37 08:37 09:45 MCV MCH MCHC RDW Plt Count MPV Immature Gran % (Auto) Neut % (Auto) Lymph % (Auto) Crawford % (Auto) Eos % (Auto) Baso % (Auto) Lymph # (Auto) Crawford # (Auto) Eos # (Auto) Baso # (Auto) Abs Immat Gran (auto) Absolute Neuts (auto) Absolute Nucleated RBC Nucleated RBC % (auto) Anion Gap Estim Creat Clear Calc Estimated GFR POC Glucose Random Glucose Lactic Acid Calcium Magnesium Total Bilirubin AST ALT Alkaline Phosphatase Troponin I High Sens 6.9 B-Natriuretic Peptide 105 H Total Protein Albumin Lipase Urine Color Yellow Urine Appearance Clear Urine pH 5.5 Ur Specific [place] 1.015 Urine Protein Trace Urine Glucose (UA) 100 H Urine Ketones Negative Urine Blood Negative Urine Nitrite Negative Ur Leukocyte Esterase Negative Urine Opiates Screen Urine Fentanyl Screen Ur Barbiturates Screen Ur Phencyclidine Scrn Ur Amphetamines Screen U Benzodiazepines Scrn Urine Cocaine Screen U Marijuana (THC) Screen Ethyl Alcohol COVID-19 (CARLIN) COVID-19 Clin Com Influenza Type A (MITA) Influenza Type B (MITA) Influenza A & B Note 03/05/22 09:45 MCV MCH MCHC RDW Plt Count MPV Immature Gran % (Auto) Neut % (Auto) Lymph % (Auto) Crawford % (Auto) Eos % (Auto) Baso % (Auto) Lymph # (Auto) Crawford # (Auto) Eos # (Auto) Baso # (Auto) Abs Immat Gran (auto) Absolute Neuts (auto) Absolute Nucleated RBC Nucleated RBC % (auto) Anion Gap Estim Creat Clear Calc Estimated GFR POC Glucose Random Glucose Lactic Acid Calcium Magnesium Total Bilirubin AST ALT Alkaline Phosphatase Troponin I High Sens B-Natriuretic Peptide Total Protein Albumin Lipase Urine Color Urine Appearance Urine pH Ur Specific [place] Urine Protein Urine Glucose (UA) Urine Ketones Urine Blood Urine Nitrite Ur Leukocyte Esterase Urine Opiates Screen Not Detected Urine Fentanyl Screen Not Detected Ur Barbiturates Screen Not Detected Ur Phencyclidine Scrn Not Detected Ur Amphetamines Screen Not Detected U Benzodiazepines Scrn Not Detected Urine Cocaine Screen Not Detected U Marijuana (THC) Screen Not Detected Ethyl Alcohol COVID-19 (CARLIN) COVID-19 Clin Com Influenza Type A (MITA) Influenza Type B (MITA) Influenza A & B Note Imaging Radiologist's Impressions: Impressions Chest X-Ray 03/05/22 09:25 IMPRESSION: Right basilar opacity could reflect atelectasis or infiltrate. Age indeterminate compression fracture of 2 vertebrae in the mid thoracic spine. This appears new as compared to the prior CT from 04/30/2019. Clinically correlate. Further evaluation with MRI as clinically warranted. Knee X-Ray 03/05/22 09:25 IMPRESSION: No radiographically evident acute fracture or dislocation. Knee X-Ray 03/05/22 09:25 IMPRESSION: No radiographically evident acute fracture or dislocation. Head CT 03/05/22 09:57 IMPRESSION: 1. No CT evidence of acute intracranial hemorrhage or edematous territorial infarction. 2. Limited evaluation of the cervical spine, motion artifact degrading images, limiting evaluation. No CT evidence of obvious vertebral body compression deformity or obvious fracture in the cervical spine, but evaluation is limited. Repeat CT scan as clinically warranted. Cervical Spine CT 03/05/22 09:58 IMPRESSION: 1. No CT evidence of acute intracranial hemorrhage or edematous territorial infarction. 2. Limited evaluation of the cervical spine, motion artifact degrading images, limiting evaluation. No CT evidence of obvious vertebral body compression deformity or obvious fracture in the cervical spine, but evaluation is limited. Repeat CT scan as clinically warranted. Chest CT 03/05/22 12:26 IMPRESSION: No evidence of pneumonia. Bilateral atelectasis Changes of centrilobular emphysema. Circumferential thickening, without was consistent with esophagitis correlate clinically. Chronic pancreatitis Atherosclerotic renal calcifications. Compression deformities of T7 and 8, new since previous study Fleischner guidelines were followed. Assessment and Plan (1) Acute exacerbation of chronic obstructive pulmonary disease (COPD): Status: Acute Plan 66 year old man placed on observation for COPD exacerbation Acute hypoxic resp failure secondary to COPD exacerbation 88% on RA covid and flu neg No PNA on CT scheduled duonebs solumedrol Supplemental oxygen as needed Falls head, bilateral knee, cervical spine and chest CT on negative for any acute abnormality PT eval CKD stage 2 Stable CAD asa, statin, BB Hypertension continue home medications Diabetes SS, ADA diet Mental health continue home medications DVT prophylaxis with Heparin Attending Dr. Feliciano Full code Quality Stroke Does the patient have a stroke diagnosis?: No VTE Prior VTE?: No VTE Risk Level:: Medical - moderate - high VTE Device Contraindication: Treatment Not Indicated VTE Drug Contraindication: N/A - Med Ordered
--- OUTSIDE RECORDS SUMMARY | 2022-03-05 15:41 | XMS_ITS | Continuity of Care Document ---
:1955 Author Organization [facility] Care Team Providers Name Role Phone [facility] Unavailable Unavailable Problems Combined list of problems from Department of Defense and Veterans Affairs facilities. It does not include entries that were removed or entered in error. Problem Status Onset Problem Date of Comments Source Date Type Resolution Malignant tumor of Active Condition Nov 15, [place] prostate 016 2018 Entered [facility] By: CORY BECERRA Comment: Stew 7; S/P XRT Hyperlipidemia Active Condition [facility] (SNOMED CT [id number]) 010 [facility] [place] [facility] Traumatic amputation Active Condition [facility] of other finger(s) 010 W STRN (complete) [place] (partial), HCS complicated (ICD-9 Amputation necrotic Inactive Condition 11/20/2008 [facility] tips digits # 1-#5 009 [facility] Left hand [place] [facility] Bilateral Active Condition [facility] fasciotomies, arms 009 [facility] and hands [place] [facility] Episode of Active Condition [facility] hypothermia/severe 009 W STRN cold injury all [place] fingers and two toes HCS Acute GA Inactive Condition 01/29/2021 [facility] 009 [facility] [place] [facility] Acute exacerbation Active Condition P [place] of chronic [facility] obstructive airways disease Acute hypercapnic Active Condition [place] respiratory failure [facility] Acute Respiratory Active Condition [place] failure (ICD-9-CM HC S 518.81) Alcohol Abuse (SCT Active Condition Dec 13, [facility] [id number]) 2020 Entered WSTRN By: ORLANDO MAJOR JHON B Comment: reviewed Mar 30, 2021 Entered By: ORLANDO ARREGUIN Comment: reviewed Jun 02, 2021 Entered By: ORLANDO ARREGUIN Comment: reviewed Nov 05, 2021 Entered By: VIC GARCIA Comment: in remission Anxiety State Active Condition [facility] Bipolar disorder Active Condition PRO VIDENCE [facility] Bipolar disorder in Active Condition Dec 13, [place] CNTRL partial remission 2020 Entered WSTRN By: ORLANDO MAJOR Comment: reviewed Mar 30, 2021 Entered By: ORLANDO ARREGUIN Comment: reviewed Jun 02, 2021 Entered By: ORLANDO ARREGUIN Comment: reviewed Bipolar I Disorder, Active Condition [facility] CAD * (ICD-9-CM Active Condition [facility] C N[facility]L 414.9) WSTRN MAY Myrick [facility] Calculus of common Active Condition V A CNTRL bile duct with acute WSTRN cholecystitis [place] [facility] Cannabis dependence, Active Condition Dec 13 , [place] CNTRL episodic 2020 Entered WSTRN By: ORLANDO MAJOR Comment: reviewed Mar 30, 2021 Entered By: ORLANDO ARREGUIN Comment: reviewed Jun 02, 2021 Entered By: ORLANDO ARREGUIN Comment: reviewed 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 [facility] Changes in skin Active Condition PROV IDENCE texture [facility] Chronic Obstructive Active Condition [facility] Pulmonary Disease WS TRN MAY Myrick [facility] Chronic pain Active Condition [facility] Chronic Pain Active Condition [facility] Syndrome (ICD-9-CM C LINIC 338.4) Chronic pain Active Condition [facility] syndrome (SNOMED CT WSTRN [id number]) [place] [facility] Diabetes * (ICD-9-CM Active Condition [facility] 250.00) CLINIC Diabetes mellitus Active Condition [place] [facility] Diabetes Mellitus Active Condition [facility] Type 2 (SCT WSTRN [id number]) [place] [facility] Diabetes Mellitus Active Condition [facility] Type II or CLINIC unspecified Diarrhea Active Condition [facility] Elevated Prostate Active Condition Aug 27, [facility] Specific Antigen 2010 Entered CLINIC (PSA) By: JOSEPHINE MASTERS Comment: s/p Biopsy on 07/2010 neg for Ca Elevated PSA (SNOMED Active Condition September 19 , [place] CNTRL [place] [id number]) 2011 Entered WST RN By: CARLOS CORDERO S Comment: biopsy negative July 2010 [facility] Encopresis * Active Condition [facility] (ICD-9-CM 307.7) WST RN MAY Myrick [facility] Foot ulcer due to Active Condition Aug 16, V A CNTRL type 2 diabetes 2006 Entered W STRN mellitus (SNOMED CT By: SHAKIRA [id number]) SIDNEY CASTRO S N E Comment: Nph 12am/12pm, metformin Nov 14, 2006 Entered By: SIDNEY CASTRO Comment: aic 6.7, cont same Former heavy tobacco Active Condition [place] smoker [facility] Frostbite of hand Active Condition [place] (ICD-9-CM 991.1) HCS GERD Active Condition Aug 16, CNTRL 2006 Entered WSTRN By: SIDNEY CHESTER N E Comment: trial omeprazole working Glaucoma Active Condition [facility] Glaucoma * (ICD-9-CM Active Condition [facility] 365.9) CLINIC History of fall Active Condition PROV IDENCE [facility] Hypercalcemia Active Condition Nov 13, [facility] 2006 Entered WSTRN By: SIDNEY CHESTER N E Comment: recheck labs ordered, pt to decrase cheese intake Hyperlipidemia Active Condition PROVI DENCE [facility] Hyperlipidemia * Active Condition [facility] (ICD-9-CM 272.4) CLI [place] Hypertension (SNOMED Active Condition Oct 06 , [facility] CNTR[facility] [place] [id number]) 2006 Entered WSTR N By: SIDNEY CHESTER N E Comment: did not tolerate dc lasix, pt may restart Nov 13, 2006 Entered By: SIDNEY CASTRO Comment: begin lisinopril Hypertension * Active Condition [facility] (ICD-9-CM 401.9) CLI [place] Hypomagnesemia Active Condition PROVI DENCE [facility] Incontinence Active Condition PROVIDE GAE [facility] Malignant neoplasm Active Condition P [place] of skin of face [facility] Malignant neoplasm Active Condition [place] of urinary bladder [facility] [place] [facility] [place] [facility] Morbid obesity Active Condition PROVI DENCE [facility] Nephropathy Active Condition [facility] WSTRN [place] Obesity (SNOMED CT Active Condition V A CNTRL [id number]) WSTRN MAY [place] Open Angle Glaucoma Active Condition [facility] [place] [facility] Other and Active Condition [place] unspecified Sleep HC S Apnea Pneumonia Active Condition [facility] Pneumonia (ICD-9-CM Active Condition [place] 486.) HCS Prostate Cancer (SCT Active Condition [place] CNTRL [id number]) [place] [facility] s/p CHOLECYSTECTOMY Active Condition [facility] Skin ulcer Active Condition [facility] E associated with [facility] diabetes mellitus Sleep Apnea Active Condition Dec 13, DE CNTR L 2001 Entered WSTRN By: MICHELET CHATMAN [facility] ED JAWED Comment: vet refused f/u for CPAP titration at [place] Aug 25, 2006 Entered By: SIDNEY CASTRO Comment: await consult in , pt will schedule Tobacco dependence Active Condition Nov 13, [place] CNTRL with current use 2006 Entered WSTRN (SNOMED CT By: MG RINCON [id number]) SIDNEY CASTRO [facility] N E Comment: will re try patch as it worked b4 Dec 13, 2020 Entered By: ORLANDO ARREGUIN Comment: reviewed Mar 30, 2021 Entered By: ORLANDO ARREGUIN Comment: smoking again Jun 02, 2021 Entered By: ORLANDO ARREGUIN Comment: reviewed Traumatic amputation Active Condition [facility] Ulcer of heel Active Condition [facility] Acute cholangitis Inactive Condition 01/29/2021 V A CNTRL WSTRN [place] [facility] Acute cholecystitis Inactive Condition 01/29/2021 [facility] Acute pancreatitis Inactive Condition 01/29/2021 Aug 16, [place] CNTRL 2006 Entered WSTRN By: SIDNEY CHESTER [facility] N E Comment: rcvd tpn in hospital, monitor, resolved Anemia Inactive Condition 01/29/2021 Aug 16, [place] CNTRL 2006 Entered WSTRN By: SIDNEY CHESTER [facility] N E Comment: rcvd 1unit in hospital, etio?, hgb now stable Bacteremia Inactive Condition 10/25/2009 Jul 31, [place] CNTR L 2006 Entered WSTRN By: SIDNEY CHESTER [facility] N E Comment: MRSA, on vanco, resolved Burn of thigh Inactive Condition 11/15/2018 FERNANDO BUCKLEY [facility] Closed fracture of Inactive Condition 01/29/2021 Jun 27, [facility] multiple ribs 2014 Entered WST RN By: GAIL THORNE [facility] P Comment: 3 ribs on the left Disorder due to type Inactive Condition 01/29/2021 [facility] CN[facility] 2 diabetes mellitus WSTRN MAY [place] Exercise Counseling Inactive Condition 07/08/2009 September 28 , [place] CNTRL 2006 Entered WSTRN By: SIDNEY CHESTER [facility] N E Comment: if pt continus increasing exercise consider stress testing Hand pain Inactive Condition 11/15/2018 [facility] Hyponatremia Inactive Condition 01/29/2021 Aug 25, [place] CN TRL 2006 Entered WSTRN By: SIDNEY CHESTER [facility] N E Comment: normal, monitor Infective pneumonia Inactive Condition 11/15/2018 Aug 22 , [place] 2016 Entered [facility] By: MARYSE NOEL PH Comment: August 2016 treated Influenza Inactive Condition 11/15/2018 [facility] Lack of Housing Inactive Condition 01/29/2021 DE CNTRL (ICD-9-CM V60.0) WST RN MAY [place] LEUKOCYTOSIS, Inactive Condition 07/08/2009 Nov 13, VA C NTRL unspecified 2006 Entered WSTRN By: SIDNEY CHESTER [facility] N E Comment: ? tooth pulled, 2c dental, rechek cbc orderd Nicotine dependence Inactive Condition 11/15/2018 [facility] Diagnosis: ICD-10-CM Active Diagnosis [place] M54.59 Other low back painwith Provider Comments: Other low back pain Diagnosis: ICD-10-CM Active Diagnosis [place] CNTRL R26.9 Unspecified WS TRN abnormalities of [place] gait and HCS mobilitywith Provider Comments: Unspecified Abnormalities of Gait and Mobility Diagnosis: ICD-10-CM Active Diagnosis [place] CNTRL Z74.1 Need for WSTRN assistance with [place] personal carewith HC S Provider Comments: Need for Assistance with Personal Care Diagnosis: ICD-10-CM Active Diagnosis [place] Z71.89 Other specified counselingwith Provider Comments: Other specified Counseling Diagnosis: ICD-10-CM Active Diagnosis [place] F31.77 Bipolar disord, in partial remis, most recent episode mixedwith Provider Comments: Bipolar disorder in partial remission ([facility] [id number]) Diagnosis: ICD-10-CM Active Diagnosis [facility] E11.8 Type 2 WSTRN diabetes mellitus BURAK WONG with unspecified HCS complicationswith Provider Comments: Foot ulcer due to type 2 diabetes mellitus ([facility] [id number]) Diagnosis: ICD-10-CM Active Diagnosis [facility] R10.11 Right upper W STRN quadrant painwith BURAK WONG Provider Comments: H CS Right upper Quadrant Pain Diagnosis: ICD-10-CM Active Diagnosis [facility] I10 Essential WSTRN (primary) [place] hypertensionwith HCS Provider Comments: Hypertension Diagnosis: ICD-10-CM Active Diagnosis [place] Z23 Encounter for immunizationwith Provider Comments: Encounter for Immunization Diagnosis: ICD-10-CM Active Diagnosis [place] K59.01 Slow transit constipationwith Provider Comments: Slow Transit Constipation Diagnosis: ICD-10-CM Active Diagnosis [place] R10.30 Lower abdominal pain, unspecifiedwith Provider Comments: Lower Abdominal Pain, unspecified Diagnosis: ICD-10-CM Active Diagnosis [facility] Z86.31 Personal WSTR N history of diabetic [place] foot ulcerwith HCS Provider Comments: Personal History of Diabetic Foot Ulcer Diagnosis: ICD-10-CM Active Diagnosis [facility] I12.9 Hypertensive W STRN chronic kidney [place] disease w stg HCS 1-4/unsp chr kdnywith Provider Comments: Hypertensive Chronic Kidney Disease with Stage 1 through Stage 4 Chronic Kidney Disease, or unspecified Chronic Kidney Disease Diagnosis: ICD-10-CM Active Diagnosis [facility] E11.9 Type 2 WSTRN diabetes mellitus BURAK WONG without HCS complicationswith Provider Comments: Diabetes Mellitus Type 2 ([facility] [id number]) Diagnosis: ICD-10-CM Active Diagnosis [place] Z71.0 Prsn encntr hlth serv to consult on behalf of another personwith Provider Comments: Person Encountering Health Services to Consult on Behalf of another Person Diagnosis: ICD-10-CM Active Diagnosis [facility] L03.116 Cellulitis W STRN of left lower [place] limbwith Provider HC S Comments: Cellulitis of left lower Limb Diagnosis: ICD-10-CM Active Diagnosis [facility] H40.053 Ocular WSTRN hypertension, [place] bilateralwith HCS Provider Comments: Ocular Hypertension, Bilateral Diagnosis: ICD-10-CM Active Diagnosis ANA NOURSE F31.9 Bipolar [place] [facility] disorder, unspecifiedwith Provider Comments: Bipolar Disorder, unspecified Diagnosis: ICD-10-CM Active Diagnosis [facility] R45.851 Suicidal JC ERS [facility] ideationswith Provider Comments: Suicidal Ideations Diagnosis: ICD-10-CM Active Diagnosis MIGUELANGEL [facility] F31.60 Bipolar disorder, current episode mixed, unspecifiedwith Provider Comments: Bipolar Disorder, Current Episode Mixed, unspecified Diagnosis: ICD-10-CM Active Diagnosis [place] CNTR Z71.89 Other WSTRN specified [place] counselingwith HCS Provider Comments: Other specified counseling Diagnosis: ICD-10-CM Active Diagnosis KIRA DE J44.9 Chronic CLINIC obstructive (631GE) pulmonary disease, unspecifiedwith Provider Comments: Chronic obstructive pulmonary disease, unspecified Diagnosis: ICD-10-CM Active Diagnosis [place] CNTRL F12.20 Cannabis WSTR N dependence, [place] uncomplicatedwith HC S Provider Comments: Cannabis dependence, episodic ([facility] [id number]) Diagnosis: ICD-10-CM Active Diagnosis DE CNTRL M54.5 Low back WSTRN painwith Provider BURAK WONG Comments: Low Back H CS Pain Diagnosis: ICD-10-CM Active Diagnosis [place] CNTRL N20.0 Calculus of WS TRN kidneywith Provider SHAKIRA Comments: Calculus H CS of Kidney Diagnosis: ICD-10-CM Active Diagnosis [place] Z13.6 Encounter for [facility] screening for cardiovascular disorderswith Provider Comments: Encounter for Screening for Cardiovascular Disorders Diagnosis: ICD-10-CM Active Diagnosis DE CNTRL E11.9 Type 2 WSTRN diabetes mellitus [place] without HCS complicationswith Provider Comments: Type 2 Diabetes Mellitus without Complications Diagnosis: ICD-10-CM Active Diagnosis [place] CNTRL F10.10 Alcohol WSTRN abuse, [place] uncomplicatedwith HC S Provider Comments: Alcohol Abuse ([facility] [id number]) Diagnosis: ICD-10-CM Active Diagnosis [place] CNTRL C61 Malignant WSTRN neoplasm of [place] prostatewith HCS Provider Comments: Prostate Cancer ([facility] [id number]) Diagnosis: ICD-10-CM Active Diagnosis DE CNTRL Z72.0 Tobacco WSTRN usewith Provider JAMILA NINO Comments: Tobacco HC S dependence with current use ([facility] [id number]) Diagnosis: ICD-10-CM Active Diagnosis [facility] F31.72 Bipolar WSTRN disord, in full [place] remis, most recent H CS episode hypomanicwith Provider Comments: Bipolar Disorder, in Full Remission, most Recent Episode Hypomanic Diagnosis: ICD-10-CM Active Diagnosis [facility] I10 Essential WSTRN (primary) [place] hypertensionwith HCS Provider Comments: Hypertension ([facility] [id number]) Diagnosis: ICD-10-CM Active Diagnosis [facility] F31.73 Bipolar WSTRN disord, in partial [place] remis, most recent H CS episode manicwith Provider Comments: Bipolar Disorder, in Partial Remission, most Recent Episode Manic Diagnosis: ICD-10-CM Active Diagnosis [facility] G89.4 Chronic pain W STRN syndromewith [place] Provider Comments: H CS Chronic pain syndrome ([facility] [id number]) Diagnosis: ICD-10-CM Active Diagnosis [facility] F31.71 Bipolar WSTRN disord, in partial [place] remis, most recent H CS epsd hypomanicwith Provider Comments: Bipolar disorder in partial remission ([facility] [id number]) Medications Combined list of outpatient medications from Department of Defense and Veterans Affairs facilities. Medications provided include 1) outpatient medications from the last 15 months, and 2) patient-reported medications. Medication Details Route Status Patient Prescription Prescription Last Ordering Order Source Instructions Expires Number Dispense Provider Date Date ACETAMINOPH TAKE TWO ORAL ACTIVE 03/03/2023 [id number] NADAZ DIN- EN 325MG TABLETS 2 , 2021 IELD TAB BY MOUTH HERMINIA FOUR M TIMES DAILY NEEDED FOR PAIN ALBUTEROL INHALE 2 INHALA ACTIVE ADELE, 06/20/ PROVIDE 90MCG/ACTUA PUFFS BY TITITO AMEZCUA 2017 NC E T (CFC-F) MOUTH [facility] INHL,ORAL,8 QID PRN .5GM DOSE COUNTER ALBUTEROL INHALE INHALA ACTIVE 05/19/2022 [id number] MAYCOL Edgar 05/18/ VA SO4 CONTENTS TION 2 ,OLGA 2021 CNTRL 3MG/IPRATRO OF 1 MISCEL F WSTRN PIUM BR VIAL IN LANEOU [place] 0.5MG/3ML NEBULIZE S SETS INHL,3ML R TWICE HCS DAILY NEEDED AMLODIPINE TAKE ONE ORAL 05/29/2021 [id number] V ANWAGNER 05/28/ VA BESYLATE TABLET 1 ,2020 CNTRL 10MG TAB BY MOUTH F WSTRN ONCE [place] DAILY SETS FOR HCS BLOOD PRESSURE /HEART, DO NOT TAKE WITH GRAPEFRU IT JUICE AMMONIUM APPLY TOPICA ACTIVE 05/22/2022 [id number] VANWAGNER 05/21/ VA LACTATE 12% THIN LLY 2 ,2021 CNTRL LOTION LAYER F WSTRN TOPICALL [place] Y ONCE SETS DAILY HCS FOR DRY IRRITATE D SKIN AMMONIUM APPLY TOPICA DISCONT 09/04/2021 [id number] EVITA, 09/03/ VA LACTATE 12% THIN LLY INUE 1 2020 CNTRL LOTION LAYER WSTRN TOPICALL [place] Y ONCE SETS DAILY HCS FOR DRY IRRITATE D SKIN ASPIRIN TAKE ONE ORAL ACTIVE 11/06/2022 [id number] HAIDER FOURNIER 81MG TAB,EC TABLET 2 2021 IELD BY MOUTH ONCE DAILY TO PREVENT STROKE/H EART ATTACK ASPIRIN TAKE ONE ORAL 05/24/2021 [id number] CLIFFORD FARRIS VA 81MG TAB,EC TABLET 2 2020 CNTRL BY MOUTH WSTRN ONCE [place] DAILY TO SETS PREVENT HCS STROKE/H EART ATTACK ASPIRIN TAKE ONE ORAL ACTIVE PETER, 81MG TAB,EC TABLET OLGA Akins 2020 CNT RL BY MOUTH WSTRN ONCE [place] DAILY SETS HCS ATORVASTATI TAKE ORAL ACTIVE 01/15/2023 [id number] JAZMÍN SANTIAGO N CA 80MG ONE-HALF 2 2021 IELD TAB TABLET BY MOUTH AT BEDTIME FOR CHOLESTE ROL ATORVASTATI TAKE ORAL DISCONT 04/14/2022 [id number] SULLIDONALD N, N CA 80MG ONE-HALF INUED 2 OLGA Akins 2020 CNT RL TAB TABLET (EDIT) WSTRN BY MOUTH [place] AT SETS BEDTIME HCS FOR CHOLESTE ROL BUPRENORPHI APPLY 1 TOPICA 08/01/2021 [id number] CU TLER,WI NE 5MCG/HR PATCH TO L 1 LLIAM S 2020 CNTR L PATCH SKIN PATCH WSTRN EVERY 7 [place] DAYS SETS (REMOVE HCS PATCH BEFORE APPLYING A NEW PATCH) CARVEDILOL TAKE ONE ORAL ACTIVE 01/15/2023 [id number] Gustabo SANTIAGO NNAdarsh springF 3.125MG TAB TABLET 2 2021 IELD BY MOUTH TWICE DAILY DIRECTED BY PROVIDER WITH A MEAL/BRYN D CARVEDILOL TAKE ONE ORAL DISCONT 01/16/2022 [id number] H DALIA SAMANIEGO springF 3.125MG TAB TABLET INUED 2 SA GABRIELE2021 IELD BY MOUTH (EDIT) TWICE DAILY DIRECTED BY PROVIDER WITH A MEAL/BRYN D CARVEDILOL TAKE ONE ORAL DISCONT 04/28/2022 [id number] CHART IER, VA 3.125MG TAB TABLET INUED 2 STEFAN M 2020 CNTRL BY MOUTH WSTRN TWICE [place] DAILY SETS DIRECTED HCS BY PROVIDER WITH A MEAL/BRYN D CEPHALEXIN TAKE ORAL 10/06/2021 [id number] Kayla LANGFORD [place] 250MG CAP THREE 2 DD 2021 CNTRL CAPSULES WSTRN BY MOUTH [place] THREE SETS TIMES A HCS DAY FOR INFECTIO N CEPHALEXIN TAKE ONE ORAL 07/22/2021 [id number] VANWA GNER VA 250MG CAP CAPSULE 2021 CNTRL BY MOUTH F WSTRN FOUR [place] TIMES A SETS DAY FOR HCS INFECTIO N CHOLECALCIF TAKE ONE ORAL ACTIVE 05/22/2022 [id number] V ANWAGNER VA BEAL 50MCG TABLET 2021 CNTRL (2,000UNIT) BY MOUTH F WSTRN TAB ONCE [place] DAILY SETS FOR HCS VITAMIN SUPPLEME NTATION CHOLECALCIF TAKE ONE ORAL DISCONT 03/25/2021 [id number] V ANWAGNER 03/25/ VA BELA 50MCG TABLET INUE 1 ,2019 CNTRL (2,000UNIT) BY MOUTH F WSTRN TAB ONCE [place] DAILY SETS FOR HCS VITAMIN SUPPLEME NTATION CLONAZEPAM TAKE ONE ORAL ACTIVE 07/01/2022 [id number] SHARM Gustabo,NE springF 1MG TAB TABLET 2 ETA 2021 IELD BY MOUTH ONCE DAILY FOR 30 DAYS, AND TAKE ONE TABLET AT BEDTIME FOR 30 DAYS, AND TAKE ONE TABLET AT NOON FOR 30 DAYS FOR ANXIETY NOTE NEW DIRECTIO NS CLONAZEPAM TAKE ONE ORAL DISCONT 05/08/2022 [id number] SHARM A,NE springF 1MG TAB TABLET INUED 2 ETA 2021 IELD BY MOUTH ONCE DAILY FOR 30 DAYS, AND TAKE ONE TABLET AT BEDTIME FOR 30 DAYS, AND TAKE ONE TABLET AT NOON FOR 30 DAYS FOR ANXIETY NOTE NEW DIRECTIO NS CLONAZEPAM TAKE ONE ORAL DISCONT 12/05/2021 [id number] WILLI AMS, VA 1MG TAB TABLET INUED 2 ROSELINE B 2021 CNTRL BY MOUTH WSTRN ONCE [place] DAILY SETS FOR 30 HCS DAYS, AND TAKE ONE TABLET AT BEDTIME FOR 30 DAYS, AND TAKE ONE TABLET AT NOON FOR 30 DAYS FOR ANXIETY NOTE NEW DIRECTIO NS CLONAZEPAM TAKE ONE ORAL DISCONT 09/26/2021 [id number] WILLI AMS, VA 1MG TAB TABLET INUED 1 ROSELINE B 2020 CNTRL BY MOUTH WSTRN ONCE [place] DAILY SETS FOR 30 HCS DAYS, AND TAKE ONE TABLET AT BEDTIME FOR 30 DAYS, AND TAKE ONE TABLET AT NOON FOR 30 DAYS FOR ANXIETY NOTE NEW DIRECTIO NS CLONAZEPAM TAKE ONE ORAL DISCONT 06/15/2021 [id number] WILLI AMS, VA 1MG TAB TABLET INUE 1 ROSELINE B 2020 CNTRL BY MOUTH WSTRN ONCE [place] DAILY SETS FOR 30 HCS DAYS, AND TAKE TWO TABLETS AT BEDTIME FOR 30 DAYS FOR ANXIETY CLONAZEPAM TAKE ONE ORAL 10/30/2021 [id number] WILLI AMS, 10/01/ VA 1MG TAB TABLET 2 ROSELINE B 2021 CNTRL BY MOUTH WSTRN ONCE [place] DAILY SETS FOR 30 HCS DAYS, AND TAKE ONE TABLET AT BEDTIME FOR 30 DAYS, AND TAKE ONE TABLET AT NOON FOR 30 DAYS FOR ANXIETY NOTE NEW DIRECTIO NS CLONAZEPAM TAKE ONE ORAL ACTIVE PEARL MUNOZ 03/23/ [place] 1MG TAB TABLET K 2009 VA BY [facility]OUTH [facility] DOCUSATE NA TAKE 1 ORAL 12/01/2021 [id number] VANWAG NER VA 50MG/SENNOS TABLET 1 ,2020 CNTR L IDES 8.6MG BY MOUTH F WSTRN TAB TWICE [place] DAILY SETS NEEDED [facility] FOR STOOL SOFTENER /LAXATIV E DOXEPIN 6MG TAKE ONE ORAL ACTIVE 12/30/2022 [id number] S [place] DAHL 12/29/ [place] TAB TABLET 2 ETA 2021 IELD BY MOUTH AT BEDTIME FOR INSOMNIA DOXEPIN 6MG TAKE ONE ORAL DISCONT 11/06/2022 [id number] [place] GARCIA 11/07/ [place] TAB TABLET INUED 2 ETA 2021 IELD BY MOUTH AT BEDTIME FOR INSOMNIA DOXEPIN 6MG TAKE ONE ORAL DISCONT 05/19/2022 [id number] W ILLIAMS, 05/18/ VA TAB TABLET INUED 2 ROSELINE B 2021 CNTRL BY MOUTH WSTRN AT [place] BEDTIME SETS FOR HCS INSOMNIA DOXEPIN 6MG TAKE ONE ORAL DISCONT 03/27/2022 [id number] W ILLIAMS, 03/26/ VA TAB TABLET INUE 1 ROSELINE B 2020 CNTRL BY MOUTH WSTRN AT [place] BEDTIME SETS FOR HCS INSOMNIA DOXEPIN 6MG TAKE ONE ORAL DISCONT 09/10/2021 [id number] W ILLIAMS, 09/09/ VA TAB TABLET INUE 1 ROSELINE B 2020 CNTRL BY MOUTH WSTRN AT [place] BEDTIME SETS FOR HCS INSOMNIA EMPAGLIFLOZ TAKE ORAL ACTIVE 09/10/2022 [id number] Gustabo FARRIS VA IN 25MG TAB ONE-HALF 2 ICE 2022 CNTRL TABLET WSTRN BY MOUTH [place] ONCE SETS DAILY HCS FOR DIABETES FLUTICASONE INHALE 1 INHALA ACTIVE 04/16/2022 [id number] CASTANEDA LLIVAN, 500MCG/SALM PUFF BY TION 2 [facility] 2020 CN TRL ETEROL MOUTH ORAL WSTRN 50MCG TWICE [place] INHL,ORAL,D DAILY - SETS ISKUS,60 RINSE HCS MOUTH AFTER USE FUROSEMIDE TAKE ONE ORAL ACTIVE 01/15/2023 [id number] Gustabo SANTIAGO NNAdarsh springF 20MG TAB TABLET 2 2021 IELD BY MOUTH ONCE DAILY NEEDED TO REMOVE FLUID/CO NTROL BLOOD PRESSURE FOR 3 POUND WEIGHT GAIN IN 24 HOURS OR 5 POUND WT GAIN IN ONE WEEK FUROSEMIDE TAKE ONE ORAL DISCONT 10/19/2022 [id number] H DALIA SAMANIEGO 20MG TAB TABLET INUED 2 GABRIELE2021 IELD BY MOUTH (EDIT) ONCE DAILY NEEDED TO REMOVE FLUID/CO NTROL BLOOD PRESSURE FOR 3 POUND WEIGHT GAIN IN 24 HOURS OR 5 POUND WT GAIN IN ONE WEEK FUROSEMIDE TAKE ONE ORAL DISCONT 04/14/2022 [id number] SANDI MCKENZIE 20MG TAB TABLET INUED 2 [facility] 2020 CNTRL BY MOUTH WSTRN ONCE [place] DAILY SETS NEEDED HCS TO REMOVE FLUID/CO NTROL BLOOD PRESSURE FOR 3 POUND WEIGHT GAIN IN 24 HOURS OR 5 POUND WT GAIN IN ONE WEEK GABAPENTIN TAKE ONE ORAL DISCONT 01/28/2022 [id number] MORTEZA LOZADA 300MG CAP CAPSULE INUED 1 ,2020 CNTRL BY MOUTH F WSTRN EVERY [place] MORNING SETS AND TAKE HCS TWO CAPSULES AT BEDTIME GLUCAGON INJECT 1 INTRAM 03/24/2021 [id number] FARRIS ,AL 1MG/MITZI INJECTIO USCULA 1 2020 CNTRL INJ,EMERGEN N R WSTRN CY KIT INTRAMUS [place] CULARLY SETS ONE TIME HCS NEEDED FOR SEVERE LOW BLOOD GLUCOSE HYDROXYZINE TAKE ONE ORAL ACTIVE 12/30/2022 [id number] Ramez HESHAMCHARLOTTE PAMOATE CAPSULE 2 ETA 2021 IELD 25MG CAP BY MOUTH TWICE DAILY NEEDED FOR ANXIETY HYDROXYZINE TAKE ONE ORAL DISCONT 11/06/2022 [id number] JOSECHARLOTTE PAMOATE CAPSULE INUED 2 ETA 2021 IELD 25MG CAP BY MOUTH TWICE DAILY NEEDED FOR ANXIETY HYDROXYZINE TAKE ONE ORAL DISCONT 05/19/2022 [id number] W ILLIAMS, [place] PAMOATE CAPSULE INUED 2 ROSELINE B 2021 CNTRL 25MG CAP BY MOUTH WSTRN TWICE [place] DAILY SETS NEEDED HCS FOR ANXIETY HYDROXYZINE TAKE ONE ORAL DISCONT 03/27/2022 [id number] [place]AMS, [place] PAMOATE CAPSULE INUE 2 ROSELINE B 2020 CNTRL 25MG CAP BY MOUTH WSTRN TWICE [place] DAILY SETS NEEDED HCS FOR ANXIETY HYDROXYZINE TAKE ONE ORAL DISCONT 12/11/2021 [id number] W ILLIAMS, [place] PAMOATE CAPSULE INUE 1 ROSELINE B 2020 CNTRL 25MG CAP BY MOUTH WSTRN TWICE [place] DAILY SETS NEEDED HCS FOR ANXIETY INSULIN,ASP INJECT SUBCUT DISCONT 11/20/2021 [id number] USAMA BAÑUELOS,AL 12/28/ [place] ART,HUMAN 12 UNITS ANEOUS INUED 1 ICE 2020 CNTRL 100U/ML,NOV SUBCUTAN (EDIT) WSTR N OLOG,FLEXPE EOUSLY [place] N,3ML THREE SETS TIMES A HCS DAY NOTE NEW DIRECTIO NS INSULIN,ASP INJECT 9 SUBCUT 02/23/2022 [id number] A CLIFFORD GALEANO 07/22/ [place] ART,HUMAN UNITS ANEOUS 2 2021 CNTRL 100U/ML,NOV SUBCUTAN WSTRN OLOG,FLEXPE EOUSLY [place] N,3ML THREE SETS TIMES A HCS DAY NOTE NEW DIRECTIO NS INSULIN,GLA INJECT SUBCUT ACTIVE 01/15/2023 [id number] Gustabo SANTIAGO NNM RGINE,HUMAN 30 UNITS ANEOUS 2 ELICEO 2021 IELD 100 UNIT/ML SUBCUTAN INJ,SOLOSTA EOUSLY R,3ML ONCE DAILY INSULIN,GLA INJECT SUBCUT DISCONT 02/23/2022 [id number] CLIFFORD ISAAC 07/22/ [place] RGINE,HUMAN 30 UNITS ANEOUS INUED 2 ICE 2021 CNTR L 100 UNIT/ML SUBCUTAN (EDIT) WSTR N INJ,SOLOSTA EOUSLY [place] R,3ML ONCE SETS DAILY HCS INSULIN,GLA INJECT SUBCUT DISCONT 11/04/2021 [id number] CLIFFORD ISAAC VA RGINE,HUMAN 35 UNITS ANEOUS INUE 1 ICE 2020 CNTR L 100 UNIT/ML SUBCUTAN WSTRN INJ,SOLOSTA EOUSLY [place] R,3ML ONCE SETS DAILY HCS NOTE NEW DIRECTIO NS LACTOBACILL TAKE 1 ORAL ACTIVE 10/01/2022 [id number] Germain CLARKE US TABLET 2 AVID A 2021 IELD ACIDOPHILUS BY MOUTH TAB TWICE DAILY BEFORE A MEAL LAMOTRIGINE TAKE ORAL ACTIVE 05/17/2022 [id number] Santana GARCIA 100MG TAB ONE-HALF 2 ETA 2021 IELD TABLET BY MOUTH ONCE DAILY FOR MOOD LAMOTRIGINE TAKE ORAL DISCONT 11/06/2022 [id number] CHARLOTTE GARCIA 100MG TAB ONE-HALF INUED 2 ETA 2021 IELD TABLET (EDIT) BY MOUTH ONCE DAILY FOR MOOD LAMOTRIGINE TAKE ORAL DISCONT 08/18/2022 [id number] OLGA Myrick, [place] 100MG TAB ONE-HALF INUED 2 ROSELINE B 2021 CNTR L TABLET (EDIT) WSTRN BY MOUTH [place] ONCE SETS DAILY HCS FOR MOOD LAMOTRIGINE TAKE ORAL DISCONT 06/10/2022 [id number] OLGA Myrick, [place] 100MG TAB ONE-HALF INUED 2 ROSELINE B 2021 CNTR L TABLET WSTRN BY MOUTH [place] ONCE SETS DAILY HCS FOR MOOD LAMOTRIGINE TAKE ONE ORAL DISCONT 02/27/2022 [id number] CHARLOTTE MACARIO springF 25MG TAB TABLET INUED 2 ETA 2021 IELD BY MOUTH (EDIT) ONCE DAILY FOR 10 DAYS, THEN TAKE TWO TABLETS ONCE DAILY FOR 20 DAYS, THEN TAKE TWO TABLETS ONCE DAILY FOR MOOD LAMOTRIGINE TAKE ONE ORAL DISCONT 06/05/2022 [id number] W ILLIAMS, [place] 25MG TAB TABLET INUED 2 ROSELINE B 2021 CNTRL BY MOUTH WSTRN ONCE [place] DAILY SETS FOR MOOD HCS LAMOTRIGINE TAKE ONE ORAL DISCONT 03/27/2022 [id number] W ILLIAMS, [place] 25MG TAB TABLET INUE 1 ROSELINE B 2020 CNTRL BY MOUTH WSTRN ONCE [place] DAILY SETS FOR MOOD HCS LAMOTRIGINE TAKE ONE ORAL DISCONT 09/10/2021 [id number] W ILLIAMS, [place] 25MG TAB TABLET INUE 1 ROSELINE B 2020 CNTRL BY MOUTH WSTRN ONCE [place] DAILY SETS FOR MOOD HCS LIDOCAINE APPLY 1 TOPICA ACTIVE 03/03/2023 [id number] NADAZDI N- 5% PATCH PATCH LLY 2 2021 IELD TOPICALL OGNJENKA Y ONCE M DAILY (LEAVE PATCH ON FOR 12 HOURS, THEN REMOVE PATCH) LIDOCAINE APPLY 1 TOPICA DISCONT 03/24/2021 [id number] FARRIS ,AL [place] 5% PATCH PATCH LLY INUED 1 ICE 2020 CNTRL TOPICALL (EDIT) WSTRN Y TWICE [place] DAILY SETS (LEAVE HCS PATCH ON FOR 12 HOURS, THEN REMOVE PATCH) APPLY ONE TO EACH FOOT LIDOCAINE APPLY 1 TOPICA 03/25/2021 [id number] FARRIS ,AL VA 5% PATCH PATCH LLY 1 2020 CNTRL TOPICALL WSTRN Y ONCE [place] DAILY SETS (LEAVE HCS PATCH ON FOR 12 HOURS, THEN REMOVE PATCH) APPLY ONE TO EACH FOOT LISINOPRIL TAKE ONE ORAL ACTIVE 01/15/2023 [id number] Gustabo SANTIAGO NNM springF 10MG TAB TABLET 2 ELICEO2021 IELD BY MOUTH ONCE DAILY TO CONTROL BLOOD PRESSURE LISINOPRIL TAKE ONE ORAL DISCONT 01/16/2022 [id number] DALIA AGUIRRE springF 10MG TAB TABLET INUED 2 SA GABRIELE2021 IELD BY MOUTH (EDIT) ONCE DAILY TO CONTROL BLOOD PRESSURE LISINOPRIL TAKE ONE ORAL DISCONT 10/22/2021 [id number] V ANWAGNER 11/19/ [place] 10MG TAB TABLET INUED 2 ,2020 CNTRL BY MOUTH F WSTRN ONCE [place] DAILY TO SETS CONTROL HCS BLOOD PRESSURE MAGNESIUM TAKE TWO ORAL ACTIVE 05/22/2022 [id number] VANWAGN ER 05/21/ VA OXIDE 250MG TABLETS 2 ,2021 CNT RL TAB BY MOUTH F WSTRN ONCE [place] DAILY SETS HCS MAGNESIUM TAKE TWO ORAL DISCONT 08/12/2021 [id number] VANWAG NER 08/11/ VA OXIDE 250MG TABLETS INUED 1 ,2020 CNT RL TAB BY MOUTH F WSTRN ONCE [place] DAILY SETS HCS MELATONIN TAKE ONE ORAL DISCONT 12/29/2021 [id number] VANWA GNER 02/16/ [place] 3MG CAP/TAB CAPSULE/ INUED 1 ,2020 CN TRL TABLET F WSTRN BY MOUTH [place] AT SETS BEDTIME HCS NEEDED TO ASSIST SLEEP MELATONIN TAKE ONE ORAL DISCONT 09/10/2021 [id number] WILLIA MS, [place] 3MG CAP/TAB CAPSULE/ INUE 1 ROSELINE B 2020 CN TRL TABLET WSTRN BY MOUTH [place] AT SETS BEDTIME HCS NEEDED TO ASSIST SLEEP MELOXICAM TAKE ONE ORAL 03/25/2021 [id number] VANWAG NER 03/25/ [place] 15MG TAB TABLET 1 ,2019 CNTRL BY MOUTH F WSTRN ONCE [place] DAILY SETS FOR PAIN HCS MULTIVITAMI TAKE 1 ORAL ACTIVE 05/22/2022 [id number] VANWAG NER 06/06/ [place] NS TABLET 2 ,2021 CNTRL W/MINERALS BY MOUTH F WSTRN TAB ONCE [place] DAILY SETS FOR HCS VITAMIN SUPPLEME NTATION MULTIVITAMI TAKE 1 ORAL DISCONT 05/29/2021 [id number] VANWA GNER 06/12/ [place] NS TABLET INUE 1 ,2020 CNTRL W/MINERALS BY MOUTH F WSTRN TAB ONCE [place] DAILY SETS FOR HCS VITAMIN SUPPLEME NTATION MUPIROCIN APPLY TOPICA 11/14/2021 [id number] VANWAGNE R 2% OINT,TOP THIN LLY 1 ,2020 CNTRL LAYER F WSTRN TOPICALL [place] Y TWICE SETS DAILY HCS OLANZAPINE TAKE TWO ORAL ACTIVE 12/30/2022 [id number] CHARLOTTE GARCIA springF 15MG TAB TABLETS 2 ETA 2021 IELD BY MOUTH AT BEDTIME OLANZAPINE TAKE ONE ORAL DISCONT 11/06/2022 [id number] CHARLOTTE FLOWER springF 15MG TAB TABLET INUED 2 ETA 2021 IELD BY MOUTH (EDIT) TWICE DAILY OLANZAPINE TAKE ONE ORAL DISCONT 08/18/2022 [id number] WILLI AMS, [place] 15MG TAB TABLET INUED 2 ROSELINE B 2021 CNTRL BY MOUTH (EDIT) WSTRN TWICE [place] DAILY SETS HCS OLANZAPINE TAKE ONE ORAL DISCONT 06/03/2022 [id number] WILLI AMS, 15MG TAB TABLET INUED 2 ROSELINE B 2021 CNTRL BY MOUTH WSTRN TWICE [place] DAILY SETS HCS OLANZAPINE TAKE ONE ORAL DISCONT 03/27/2022 [id number] WILLI AMS, [place] 15MG TAB TABLET INUED 1 ROSELINE B 2020 CNTRL BY MOUTH WSTRN TWICE [place] DAILY SETS HCS OLANZAPINE TAKE ONE ORAL DISCONT 02/20/2022 [id number] GABINOWilliams MALONEY LEME [place] 15MG TAB TABLET INUE 1 NT O 2020 CNTRL BY MOUTH WSTRN TWICE [place] DAILY SETS HCS OLANZAPINE TAKE ONE ORAL DISCONT 12/11/2021 [id number] WILLI AMS, [place] 15MG TAB TABLET INUE 1 ROSELINE B 2020 CNTRL BY MOUTH WSTRN TWICE [place] DAILY SETS HCS OMEPRAZOLE TAKE ONE ORAL ACTIVE 01/15/2023 [id number] JAZMÍN SANTIAGOAdarsh springF 20MG CAP,EC CAPSULE 2 ELICEO2021 IELD BY MOUTH ONCE DAILY DIRECTED BY PROVIDER OMEPRAZOLE TAKE ONE ORAL DISCONT 12/29/2021 [id number] V ANWAGNER 02/01/ [place] 20MG CAP,EC CAPSULE INUED 2 ,2020 CNT RL BY MOUTH F WSTRN ONCE [place] DAILY SETS DIRECTED HCS BY PROVIDER OXYCODONE TAKE TWO ORAL DISCONT 02/03/2021 [id number] VANWAG NER 01/04/ VA HCL 5MG TAB TABLETS INUED 1 ,2020 CNT RL BY MOUTH F WSTRN TWICE [place] DAILY SETS NEEDED HCS OXYCODONE TAKE ONE ORAL DISCONT 01/27/2021 [id number] VANWAG NER 12/28/ VA HCL 5MG TAB TABLET INUED 1 ,2020 CNTR L BY MOUTH (EDIT) F WSTRN THREE [place] TIMES SETS DAILY HCS NEEDED NEXT FILL 01/07/21 OXYCODONE TAKE 1 ORAL 01/10/2021 [id number] VANWAGNE R 12/11/ VA HCL TABLET 1 ,2020 CNTRL 5MG/ACETAMI BY MOUTH F WSTRN NOPHEN FOUR [place] 325MG TAB TIMES SETS DAILY HCS NEEDED FOR PAIN NEXT FILL 12/21/20* * TRIAMCINOLO APPLY TOPICA ACTIVE 06/23/2022 [id number] VANWAGN ER 06/22/ VA NE SMALL LLY 2 ,2021 CNTRL ACETONIDE AMOUNT F WSTRN 0.1% TOPICALL [place] OINT,TOP Y ONCE SETS DAILY TO HCS BOTH SHINS, MXED WITH EUCERIN. VENLAFAXINE TAKE ONE ORAL DISCONT 11/06/2022 [id number] CHARLOTTE MACARIO springF HCL 37.5MG CAPSULE INUED 2 ETA 2021 IELD 24HR CAP,SA BY MOUTH ONCE DAILY FOR DEPRESSI ON VENLAFAXINE TAKE ONE ORAL DISCONT 08/18/2022 [id number] W ILLIAMS, 08/17/ [place] HCL 37.5MG CAPSULE INUED 2 ROSELINE B 2021 CNTR L 24HR CAP,SA BY MOUTH (EDIT) WSTR N ONCE [place] DAILY SETS FOR HCS DEPRESSI ON VENLAFAXINE TAKE ONE ORAL DISCONT 06/03/2022 [id number] W ILLIAMS, 06/03/ [place] HCL 37.5MG CAPSULE INUED 2 ROSELNIE B 2021 CNTR L 24HR CAP,SA BY MOUTH WSTRN ONCE [place] DAILY SETS FOR HCS DEPRESSI ON VENLAFAXINE TAKE ONE ORAL DISCONT 03/27/2022 [id number] W ILLIAMS, 03/26/ VA HCL 37.5MG CAPSULE INUED 1 ROSELINE B 2020 CNTR L 24HR CAP,SA BY MOUTH WSTRN ONCE [place] DAILY SETS FOR HCS DEPRESSI ON VENLAFAXINE TAKE ONE ORAL DISCONT 02/20/2022 [id number] O HAIDER,ES 02/19/ [place] HCL 37.5MG CAPSULE INUE 1 NT O 2020 CNTRL 24HR CAP,SA BY MOUTH WSTRN ONCE [place] DAILY SETS HCS VENLAFAXINE TAKE ONE ORAL DISCONT 12/11/2021 [id number] W ILLIAMS, 12/10/ [facility] HCL 37.5MG CAPSULE INUE 1 ROSELINE B 2020 CNTR L 24HR CAP,SA BY MOUTH WSTRN ONCE [place] DAILY SETS HCS Allergies, Adverse Reactions, Alerts Combined list of allergies from Department of Defense and Veterans Affairs facilities. It does not include entries that were removed or entered in error. Substance Category Reaction Severity Reaction Status Date Comments S ource type Reported CODEINE Propensity ITCHING,WA Propensity active VA CNTRL to adverse TERING to adverse 1 WS TRN reactions EYES, reactions [place] to drug Urticaria to drug ETS HC S (finding) (finding) CODEINE Propensity Propensity active [place] to adverse to adverse 9 HC S [facility] reactions reactions to drug to drug (finding) (finding) CODEINE Propensity Watery Propensity active [place] to adverse eye, to adverse 2 CU T HCS reactions Urticaria reactions to drug to drug (finding) (finding) CODEINE Propensity Nausea and Propensity active PROVIDEN to adverse vomiting to adverse 6 C E [facility] reactions reactions to drug to drug (finding) (finding) ONIONS Propensity Propensity active [place] to adverse to adverse 2 CU T HCS reactions reactions to to substance substance (finding) (finding) ONIONS Propensity Finding of Propensity active [facility] CNTRL to adverse vomiting to adverse 1 W STRN reactions reactions [place] to to ETS HCS substance substance (finding) (finding) PEPPERS Propensity Propensity active [facility] to adverse to adverse 2 CU T HCS reactions reactions to food to food (finding) (finding) PEPPERS Propensity Finding of Propensity active [facility] CNTRL to adverse vomiting to adverse 1 W STRN reactions reactions [place] to food to food ETS HCS (finding) (finding) QUETIAPINE Propensity Propensity active [facility] CNTRL to adverse to adverse 9 WS TRN reactions reactions [place] to drug to drug ETS HCS (finding) (finding) TRAVOPROST Propensity Itching Propensity active VA CNTRL to adverse to adverse 6 WS TRN reactions reactions [place] to drug to drug ETS HCS (finding) (finding) TRAVOPROST Propensity Propensity active [place] to adverse to adverse 9 HC S [facility] reactions reactions to drug to drug (finding) (finding) TRAVOPROST Propensity Itching of Propensity active [place] to adverse eye to adverse 2 CU T HCS reactions reactions to drug to drug (finding) (finding) Immunizations Combined list of available immunizations from the Department of Defense and Veterans Affairs facilities. 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 COVID-19 3 complet MOD; SP RINGF (MODERNA), 2021 ed [id number] IELD MRNA, LNP-S, ; PF, 100 MCG/0.5ML 2 DOSE OR 50 MCG/0.25ML DOSE COVID-19 3 complet MOD; VA (MODERNA), 2021 ed [id number]; CNTRL MRNA, LNP-S, 02 WSTRN PF, 100 MCG 2 MA SSCHU OR 50 MCG SETS DOSE HCS INFLUENZA, complet VA UNSPECIFIED 2020 ed CN TRL FORMULATION WS TRN [place] SETS HCS COVID-19 2 complet MOD; VA (MODERN), 2020 ed [id number]; CNTRL MRNA, LNP-S, 02 WSTRN PF, 100 1 [place] MCG/0.5 ML SET S DOSE HCS COVID-19 1 complet MOD; VA (MODERNA), 2020 ed [id number]; CNTRL MRNA, LNP-S, 02 WSTRN PF, 100 1 [place] MCG/0.5 ML SET S DOSE HCS INFLUENZA, complet VA INJECTABLE, 2019 ed CN TRL QUADRIVALENT, WSTRN PRESERVATIVE M ASSCHU FREE SETS HCS ZOSTER 1 complet VA RECOMBINANT 2019 ed CN TRL WSTRN [place] SETS HCS INFLUENZA, complet [facility] [facility] SEASONAL, 2018 ed hospital C NTRL INJECTABLE WST RN [place] SETS HCS INFLUENZA, complet Site: PROVIDE INJECTABLE, 2018 ed Left NC E QUADRIVALENT, Deltoi d [facility] PRESERVATIVE FREE INFLUENZA, complet Site: PROVIDE TRIVALENT, 2017 ed Left NCE ADJUVANTED Deltoid V [facility] FLU,3 YRS complet Site: N EW (HISTORICAL) 2016 ed Right B [place] Deltoid PNEUMOCOCCAL complet NEW POLYSACCHARID 2017 ed MICHAEL E PPV23 PNEUMOCOCCAL complet [facility] POLYSACCHARID 2017 ed CNTRL E PPV23 WSTRN [place] SETS HCS FLU,3 YRS complet reveive d PROVIDE (HISTORICAL) 2016 ed at [facility] C NCE ED [facility] PNEUMOCOCCAL complet NEW CONJUGATE PCV 2015 ed MICHAEL 13 ZOSTER LIVE complet Site: NEW 2015 ed Right MICHAEL Deltoid DTAP, complet Site: [facility] UNSPECIFIED 2013 ed Left CN TRL FORMULATION Deltoid WSTRN [place] SETS HCS DTAP, complet other VA SD OVIDE UNSPECIFIED 2013 ed NC E FORMULATION VA MC FLU,3 YRS complet Site: V A (HISTORICAL) 2010 ed Left C NTRL Deltoid WSTRN [place] SETS HCS INFLUENZA, complet [place] UNSPECIFIED 2009 ed [facility] FORM[facility] N[facility]EL complet [employer] [facility] INFLUENZA-H1N 2008 ed CNTRL 1-09, ALL WSTR N FORMULATIONS M ASSCHU SETS HCS PNEUMOCOCCAL, complet [place] UNSPECIFIED 2007 ed [facility] PNEUMOCOCCAL, complet [place] UNSPECIFIED 2006 ed IE LD FORMULATION TD(ADULT) complet M ANCHES UNSPECIFIED 2005 ed TE R-RO FORMULATION Results Combined list of recent chemistry, hematology and other laboratory results from Department of Defense and Veterans Affairs, ranging from 15 months to all on record, depending upon the facility. Order Results Value Reference Date Interpretation Specimen Commen ts Source Name Range CBC AND LEUKOCYTES 9.54 4.50 - 11/15 Specimen Type : BLOOD [facility] CN[facility]L DIFF [#/VOLUME] 11. No comment en tered. WSTRN (AUTO) IN BLOOD BY Ordering Pr ovider: GUICHO SCANLON [place] AUTOMATED Report Releas ed Date/Time: Nov 15, 2021 11:06 AM TS HCS COUNT Reporting Lab: [facility] [place] [facility] [address] [facility] [address] Performing Lab: [facility] [place] [facility] [address] [facility] [address] CBC AND ERYTHROCYTE 4.71 4.23 - 11/15 Specimen Typ e: BLOOD [facility] CNTRL DIFF S 5.66 No comment enter ed. WSTRN (AUTO) [#/VOLUME] Ordering Pro vider: GUICHO SCANLON [place] IN BLOOD BY Report Rele ased Date/Time: Nov 15, 2021 11:06 AM TS HCS AUTOMATED Reporting Lab : [facility] [place] [facility] COUNT [address] [facility] [address] Performing Lab: [facility] [place] [facility] [address] [facility] [address] CBC AND HEMOGLOBIN 14.8 12.8 - 17 11/15 Specimen Ty pe: BLOOD [facility] CNTRL DIFF [MASS/VOLUM /2021 No comment e ntered. WSTRN (AUTO) E] IN BLOOD Ordering Pr ovider: GUICHO SCANLON Report Released Date/Time: Nov 15, 2021 11:06 AM TS HCS Reporting Lab: [facility] [place] [facility] [address] [facility] [address] Performing Lab: [facility] [place] [facility] [address] [facility] [address] CBC AND HEMATOCRIT 45.5 39.2 - 11/15 Specimen Type : BLOOD [facility] CNTRL DIFF [VOLUME 50.4 /2021 No comment enter ed. WSTRN (AUTO) FRACTION] Ordering Prov ider: GUICHO SCANLON OF BLOOD BY Report Rele ased Date/Time: Nov 15, 2021 11:06 AM TS HCS AUTOMATED Reporting Lab : [facility] [place] [facility] COUNT [address] [facility] [address] Performing Lab: [facility] [place] [facility] [address] [facility] [address] CBC AND MCV 96.6 82 - 99 11/15 Specimen Type: B LOOD [facility] CNTRL DIFF [ENTITIC /2021 No comment ente red. WSTRN (AUTO) VOLUME] BY Ordering Pro vider: GUICHO SCANLONCHEDU AUTOMATED Report Releas ed Date/Time: Nov 15, 2021 11:06 AM TS HCS COUNT Reporting Lab: [facility] [place] [facility] [address] [facility] [address] Performing Lab: [facility] [place] [facility] [address] [facility] [address] CBC AND MCHC 32.5 30.8 - 11/15 Specimen Type: B LOOD [facility] CNTRL DIFF [MASS/VOLUM 35.1 /2021 No comment e ntered. WSTRN (AUTO) E] BY Ordering Provid er: GUICHO SCANLON AUTOMATED Report Releas ed Date/Time: Nov 15, 2021 11:06 AM TS HCS COUNT Reporting Lab: [facility] [place] [facility] [address] [facility] [address] Performing Lab: [facility] [place] [facility] [address] [facility] [address] CBC AND PLATELETS 164 140 - 360 11/15 Specimen Typ e: BLOOD [facility] CNTRL DIFF [#/VOLUME] /2021 No comment en tered. WSTRN (AUTO) IN BLOOD BY Ordering Pr ovider: GUICHO SCANLONCHEDU AUTOMATED Report Releas ed Date/Time: Nov 15, 2021 11:06 AM TS HCS COUNT Reporting Lab: [facility] [place] [facility] [address] [facility] [address] Performing Lab: [facility] [place] [facility] [address] [facility] [address] CBC AND ERYTHROCYTE 12.6 12.0 - 11/15 Specimen Typ e: BLOOD [facility] CNTRL DIFF DISTRIBUTIO 16.0 No comment e ntered. WSTRN (AUTO) N WIDTH Ordering Provid er: GUICHO SCANLON [RATIO] BY Report Relea sed Date/Time: Nov 15, 2021 11:06 AM TS HCS AUTOMATED Reporting Lab : [facility] [place] [facility] COUNT [address] [facility] [address] Performing Lab: [facility] [place] [facility] [address] [facility] [address] CBC AND MONOCYTES 0.54 0.30 - 11/15 Specimen Type: BLOOD [facility] CNTRL DIFF [#/VOLUME] 1.10 No comment en tered. WSTRN (AUTO) IN BLOOD BY Ordering Pr ovider: GUICHO SCANLON AUTOMATED Report Releas ed Date/Time: Nov 15, 2021 11:06 AM TS HCS COUNT Reporting Lab: [facility] [place] [facility] [address] [facility] [address] Performing Lab: [facility] [place] [facility] [address] [facility] [address] CBC AND MCH 31.4 26.2 - 11/15 Specimen Type: B LOOD [facility] CNTRL DIFF [ENTITIC 32.6 /2021 No comment ente red. WSTRN (AUTO) MASS] BY Ordering Provi maura: GUICHO SCANLON AUTOMATED Report Releas ed Date/Time: Nov 15, 2021 11:06 AM TS HCS COUNT Reporting Lab: [facility] [place] [facility] [address] [facility] [address] Performing Lab: [facility] [place] [facility] [address] [facility] [address] CBC AND NEUTROPHILS 69.8 11/15 Specimen Typ e: BLOOD [facility] CN[facility]L DIFF / No comment enter ed. WSTRN (AUTO) LEUKOCYTES Ordering Pro vider: GUICHO SCANLON [place] IN BLOOD BY Report Rele ased Date/Time: Nov 15, 2021 11:06 AM TS HCS AUTOMATED Reporting Lab : [facility] [place] [facility] COUNT [address] [facility] [address] Performing Lab: [facility] [place] [facility] [address] [facility] [address] CBC AND LYMPHOCYTES 19.5 11/15 Specimen Typ e: BLOOD [facility] CNTRL DIFF / No comment enter ed. WSTRN (AUTO) LEUKOCYTES Ordering Pro vider: GUICHO SCANLON [place] IN BLOOD BY Report Rele ased Date/Time: Nov 15, 2021 11:06 AM TS HCS AUTOMATED Reporting Lab : [facility] [place] [facility] COUNT [address] [facility] [address] Performing Lab: [facility] [place] [facility] [address] [facility] [address] CBC AND MONOCYTES/1 5.7 11/15 Specimen Typ e: BLOOD [facility] CNTRL DIFF No comment enter ed. WSTRN (AUTO) LEUKOCYTES Ordering Pro vider: GUICHO SCANLON [place] IN BLOOD BY Report Rele ased Date/Time: Nov 15, 2021 11:06 AM TS [facility] AUTOMATED Reporting Lab : [facility] [place] [facility] COUNT [address] [facility] [address] Performing Lab: [facility] [place] [facility] [address] [facility] [address] CBC AND EOSINOPHILS 4.5 11/15 Specimen Typ e: BLOOD [facility] CNTRL DIFF / No comment enter ed. WSTRN (AUTO) LEUKOCYTES Ordering Pro vider: GUICHO SCANLON [place] IN BLOOD BY Report Rele ased Date/Time: Nov 15, 2021 11:06 AM TS HCS AUTOMATED Reporting Lab : [facility] [place] [facility] COUNT [address] [facility] [address] Performing Lab: [facility] [place] [facility] [address] [facility] [address] CBC AND BASOPHILS/1 0.2 11/15 Specimen Typ e: BLOOD [facility] CNTRL DIFF 00 No comment enter ed. WSTRN (AUTO) LEUKOCYTES Ordering Pro vider: GUICHO SCANLONCHEDU IN BLOOD BY Report Rele ased Date/Time: Nov 15, 2021 11:06 AM TS HCS AUTOMATED Reporting Lab : [facility] [place] [facility] COUNT [address] [facility] [address] Performing Lab: [facility] [place] [facility] [address] [facility] [address] CBC AND NEUTROPHILS 6.66 2.20 - 11/15 Specimen Typ e: BLOOD [facility] DIFF [#/VOLUME] 7.60 No comment en tered. [facility] (AUTO) IN BLOOD BY Ordering Pr ovider: GUICHO SCANLONCHEDU AUTOMATED Report Releas ed Date/Time: Nov 15, 2021 11:06 AM [facility] COUNT Reporting Lab: [facility] [place] [facility] [address] [facility] [address] Performing Lab: [facility] [place] [facility] [address] [facility] [address] CBC AND LYMPHOCYTES 1.86 1.00 - 11/15 Specimen Typ e: BLOOD [facility] DIFF [#/VOLUME] 3.20 No comment en tered. [facility] (AUTO) IN BLOOD BY Ordering Pr ovider: GUICHO SCANLONCHEDU AUTOMATED Report Rele ed Date/Time: Nov 15, 2021 11:06 AM [facility] COUNT Reporting Lab: [facility] [place] [facility] [address] [facility] [address] Performing Lab: [facility] [place] [facility] [address] [facility] [address] CBC AND EOSINOPHILS 0.43 0.03 - 11/15 Specimen Typ e: BLOOD [facility] DIFF [#/VOLUME] 0.44 No comment en tered. [facility] (AUTO) IN BLOOD BY Ordering Pr ovider: GUICHO SCANLONCHEDU AUTOMATED Report Releas ed Date/Time: Nov 15, 2021 11:06 AM [facility] COUNT Reporting Lab: [facility] [place] [facility] [address] [facility] [address] Performing Lab[facility] [place] [facility] [address] [facility] [address] CBC AND BASOPHILS 0.02 0.01 - 11/15 Specimen Type: BLOOD [facility] DIFF [#/VOLUME] 0.13 /2021 No comment en tered. [facility] (AUTO) IN BLOOD BY Ordering Pr ovider: GUICHO SCANLON AUTOMATED Report Releas ed Date/Time: Nov 15, 2021 11:06 AM [facility] COUNT Reporting Lab: [facility] [place] [facility] [address] [facility] [address] Performing Lab: [facility] [place] [facility] [address] [facility] [address] CBC AND IMMATURE 0.3 11/15 Specimen Type: BLOOD [facility] DIFF GRANULOCYTE /2021 No comment e ntered. [facility] (AUTO) S/100 Ordering Provid er: GUICHO SCANLON LEUKOCYTES Report Relea sed Date/Time: Nov 15, 2021 11:06 AM TS [facility] IN BLOOD BY Reporting L ab: [facility] [place] [facility] AUTOMATED [address] [facility] [address] COUNT Performing Lab: [facility] [place] [facility] [address] [facility] [address] CBC AND IMMATURE 0.03 0.00 - 11/15 Specimen Type: BLOOD [facility] DIFF GRANULOCYTE 0.06 No comment e ntered. [facility] (AUTO) S Ordering Provid er: GUICHO SCANLON [#/VOLUME] Report Relea sed Date/Time: Nov 15, 2021 11:06 AM [facility] IN BLOOD Reporting Lab: [facility] [place] [facility] [address] [facility] [facility] [address] Performing Lab: [facility] [place] [facility] [address] [facility] [address] CREATININ CREATININE 1.93 0.50 - 07 H Specimen Ty pe: SERUM [facility] E (eGFR [MASS/VOLUM 1.40 /2021 No comment e ntered. WSTRN 2020) E] IN SERUM Ordering Pr ovider: SCANLON,GUICHO [place] OR PLASMA Report Releas ed Date/Time: Nov 15, 2021 11:06 AM TS HCS Reporting Lab: [facility] [place] [facility] [address] [facility] [address] Performing Lab: [facility] [place] [facility] [address] [facility] [address] CREATININ GLOMERULAR 37 60 11/15 L Specimen Ty pe: SERUM [facility] E (eGFR FILTRATION /2021 No comment en tered. WSTRN 2020) RATE/1.73 Ordering Prov ider: GUICHO SCANLON SQ Report Released Date/Time: Nov 15, 2021 11:06 AM TS HCS M.PREDICTED Reporting L ab: [facility] [place] [facility] [VOLUME [address] [facility] [address] RATE/AREA] Performing L ab: [facility] [place] [facility] IN SERUM, [address] [facility] [address] PLASMA OR BLOOD BY CREATININE- BASED FORMULA (CKD-EPI) UREA UREA 22 7 - 25 11/15 Specimen Type: S OBED [facility] NITROGEN NITROGEN /2021 No comment ent ered. WSTRN [MASS/VOLUM Ordering Pr ovider: GUICHO SCANLONCHEDU E] IN SERUM Report Rele ased Date/Time: Nov 15, 2021 11:06 AM TS HCS OR PLASMA Reporting Lab : [facility] [place] [facility] [address] [facility] [address] Performing Lab: [facility] [place] [address] [address] BASIC UREA 18 7 - 25 08/27 Specimen Type: S OBED [place] METABOLIC NITROGEN /2021 No comment en tered. LD PANEL [MASS/VOLUM Ordering Pr ovider: HERMINIA MADRID (non-fast E] IN SERUM Report Re leased Date/Time: Aug 17, 2021 10:47 AM ing) OR PLASMA Reporting Lab : [facility] [place] [facility] [address] [facility] [address] Performing Lab: [facility] [place] [address] [address] BASIC GLUCOSE 276 65 - 100 04/22 H Specimen Type: SERUM [place] METABOLIC [MASS/VOLUM /2021 No comment entered. LD PANEL E] IN SERUM Ordering Pr ovider: LEIFDeniaAILYNHERMINIA Altamirano (non-fast OR PLASMA Report Rele ased Date/Time: Aug 17, 2021 10:47 AM ing) Reporting Lab: [facility] [address] [facility] [address] Performing Lab: [address] [address] BASIC SODIUM 140 135 - 145 08/27 Specimen Type: SERUM [place] METABOLIC [MOLES/VOLU /2021 No comment entered. LD PANEL ME] IN Ordering Provid er: HERMINIA MADRID (non-fast SERUM OR Report Relea sed Date/Time: Aug 17, 2021 10:47 AM ing) PLASMA Reporting Lab: [address] [address] Performing Lab: [address] [address] BASIC POTASSIUM 5.2 3.5 - 5.0 08/27 H Specimen Typ e: SERUM [place] METABOLIC [MOLES/VOLU No comment entered. LD PANEL ME] IN Ordering Provid er: HERMINIA MADRID (non-fast SERUM OR Report Relea sed Date/Time: Aug 17, 2021 10:47 AM ing) PLASMA Reporting Lab: [facility] [address] [facility] [address] Performing Lab: [facility] [address] [facility] [address] BASIC CHLORIDE 110 100 - 110 08/27 Specimen Type : SERUM [place] METABOLIC [MOLES/VOLU /2021 No comment entered. LD PANEL ME] IN Ordering Provid er: HERMINIA MADRID (non-fast SERUM OR Report Relea sed Date/Time: Aug 17, 2021 10:47 AM ing) PLASMA Reporting Lab: [facility] [address] [facility] [address] Performing Lab: [place] [employer]oda[employer]ationRL RIVA GroupTRN [place] [facility] [address] [facility] [address] BASIC CARBON 25 20 - 30 08/27 Specimen Type: S OBED [place] METABOLIC DIOXIDE, /2021 No comment en tered. LD PANEL TOTAL Ordering Provid er: HERMINIA MADRID (non-fast [MOLES/VOLU Report Re leased Date/Time: Aug 17, 2021 10:47 AM ing) ME] IN Reporting Lab: [place] [employer] RIVA GroupN [employer] [facility] SERUM OR [address] [facility] [address] PLASMA Performing Lab: [place] [employer] RIVA GroupN [place] [facility] [address] [facility] [address] BASIC CREATININE 1.46 0.50 - 08/27 H Specimen Type : SERUM [place] METABOLIC [MASS/VOLUM 1.40 No comment entered. LD PANEL E] IN SERUM Ordering Pr ovider: HERMINIA MADRID (non-fast OR PLASMA Report Rele ased Date/Time: Aug 17, 2021 10:47 AM ing) Reporting Lab: [place] [employer] RIVA GroupTRN MASSSpectrum MobileUSETS [facility] [address] [facility] [address] Performing Lab: [place] [employer] RIVA GroupTRN [place] [facility] [address] [facility] [address] BASIC GLOMERULAR 52 60 08/27 L Specimen Type : SERUM [place] METABOLIC FILTRATION /2021 No comment entered. LD PANEL RATE/1.73 Ordering Prov ider: HERMINIA MADRID (non-fast SQ Report Releas ed Date/Time: Aug 17, 2021 10:47 AM ing) M.PREDICTED Reporting L ab: [place] [employer]R RIVA GroupN [employer] [facility] [VOLUME [address] [facility] [address] RATE/AREA] Performing L ab: [place] [employer]oda[employer]RL RIVA GroupTRN DotstudiozUS[place] [facility] IN SERUM, [address] [facility] [address] PLASMA OR BLOOD BY CREATININE- BASED FORMULA (CKD-EPI) LIPID CHOLESTEROL 77 7 - 199 08/27 Specimen Typ e: SERUM [place] PANEL [MASS/VOLUM /2021 No comment e ntered. LD FASTING E] IN SERUM Ordering Pr ovider: HERMINIA MADRID OR PLASMA Report Releas ed Date/Time: Aug 17, 2021 10:47 AM Reporting Lab: [facility] [address] [facility] [address] Performing Lab: [address] [address] LIPID TRIGLYCERID 100 0 - 150 08/27 Specimen Typ e: SERUM [place] PANEL E /2021 No comment enter ed. LD FASTING [MASS/VOLUM Ordering Pr ovider: HERMINIA MADRID] IN SERUM Report Rele ased Date/Time: Aug 17, 2021 10:47 AM OR PLASMA Reporting Lab : [address] [address] Performing Lab: [address] [address] LIPID CHOLESTEROL 31 0 - 129 08/27 Specimen Typ e: SERUM [place] PANEL IN LDL /2021 No comment enter ed. LD FASTING [MASS/VOLUM Ordering Pr ovider: HERMINIA MADRID E] IN SERUM Report Rele ased Date/Time: Aug 17, 2021 10:47 AM OR PLASMA Reporting Lab : [facility] BY [address] [place] [address] CALCULATION Performing Lab: [address] [address] LIPID CHOLESTEROL 3.0 08/27 Specimen Typ e: SERUM [place] PANEL .TOTAL/CHOL /2021 No comment e ntered. LD FASTING ESTEROL IN Ordering Pro vider: HERMINIA MADRID HDL [MASS Report Releas ed Date/Time: Aug 17, 2021 10:47 AM RATIO] IN Reporting Lab : [facility] SERUM OR [address] [place] [address] PLASMA Performing Lab: [address] [address] LIPID CHOLESTEROL 26 40 - 60 04/ L Specimen Typ e: SERUM [place] PANEL IN HDL /2021 No comment enter ed. LD FASTING [MASS/VOLUM Ordering Pr ovider: HERMINIA MADRID E] IN SERUM Report Rele ased Date/Time: Aug 17, 2021 10:47 AM OR PLASMA Reporting Lab : [facility] [address] [facility] [address] Performing Lab: [address] [address] LIVER PROTEIN 6.2 6.0 - 8.3 08/27 Specimen Type: SERUM [place] FUNCTION [MASS/VOLUM /2021 No comment entered. LD E] IN SERUM Ordering Pr ovider: HERMINIA MADRID OR PLASMA Report Releas ed Date/Time: Aug 17, 2021 10:47 AM Reporting Lab: [address] [address] Performing Lab: [address] [address] LIVER ALBUMIN 3.3 3.5 - 5.0 08/27 L Specimen Type: SERUM [place] FUNCTION [MASS/VOLUM /2021 No comment entered. LD E] IN SERUM Ordering Pr ovider: HERMINIA MADRID OR PLASMA Report Rele ed Date/Time: Aug 17, 2021 10:47 AM Reporting Lab: [address] [address] Performing [facility]: [facility] [address] [address] LIVER ALKALINE 108 40 - 150 08/27 Specimen Type: SERUM [place] FUNCTION No comment entered. LD [ENZYMATIC Ordering Pro vider: HERMINIA MADRID ACTIVITY/VO Report Rele ased Date/Time: Aug 17, 2021 10:47 AM LUME] IN Reporting Lab: [facility] SERUM OR [address] [place] [address] PLASMA Performing Lab: [facility] [place] [facility] [address] [facility] [address] LIVER ASPARTATE 15 5 - 34 08/27 Specimen Type: SERUM [place] FUNCTION AMINOTRANSF /2021 No comment entered. LD ERASE Ordering Provid er: HERMINIA MADRID [ENZYMATIC Report Relea sed Date/Time: Aug 17, 2021 10:47 AM ACTIVITY/VO Reporting L ab: [facility] [place] [facility] LU[place]] IN [address] [facility] [address] SERUM OR Performing Lab : [facility] [place] [facility] PLASMA [address] [facility] [address] LIVER ALANINE 22 6 - 55 08/27 Specimen Type: S OBED [place] FUNCTION AMINOTRANSF No comment entered. LD ERASE Ordering Provid er: HERMINIA MADRID [ENZYMATIC Report Relea sed Date/Time: Aug 17, 2021 10:47 AM ACTIVITY/VO Reporting L ab: [facility] [place] [facility] LUME] IN [address] [place] [address] SERUM OR Performing Lab : [facility] [place] [facility] PLASMA [address] [place] [address] LIVER BILIRUBIN.T 0.3 0.2 - 1.2 08/27 Specimen T ype: SERUM [place] FUNCTION OTAL No comment ente red. LD [MASS/VOLUM Ordering Pr ovider: HERMINIA MADRID E] IN SERUM Report Rele ased Date/Time: Aug 17, 2021 10:47 AM OR PLASMA Reporting Lab : [facility] [place] [address] [address] Performing Lab: [facility] [place] [address] [address] PO4 PHOSPHATE 2.9 2.5 - 5.0 08/27 Specimen Typ e: SERUM [facility] [MASS/VOLUM /2021 No comment e ntered. WSTRN E] IN SERUM Ordering Pr ovider: FRANCES GASPAR [place] OR PLASMA Report Releas ed Date/Time: Aug 19, 2021 10:15 AM TS HCS Reporting Lab: [facility] [place] [facility] [address] [facility] [address] Performing Lab: [facility] [place] [facility] [address] [facility] [address] PTH PARATHYRIN. 163.9 10 - 65 08/27 H Specimen Typ e: SERUM [facility] INTACT INTACT /2021 No comment enter ed. WSTRN [MASS/VOLUM Ordering Pr ovider: FRANCES GASPAR E] IN SERUM Report Rele ased Date/Time: Aug 19, 2021 10:15 AM TS HCS OR PLASMA Reporting Lab : [facility] [place] [address] [address] Performing Lab: [facility] [place] [address] [address] URIC ACID URATE 4.4 3.5 - 7.2 08/27 Specimen Typ e: SERUM [facility] [MASS/VOLUM /2021 No comment e ntered. WSTRN E] IN SERUM Ordering Pr ovider: FRANCES GASPAR OR PLASMA Report Releas ed Date/Time: Aug 19, 2021 10:15 AM TS [facility] Reporting Lab: [facility] [place] [address] [address] Performing Lab: [facility] [place] [address] [address] VITAMIN D 25-HYDROXYV 29 20 - 50 08/27 Specimen T ype: SERUM [facility] (25-[place]) ITAMIN D3 /2021 No comment ent ered. WSTRN [MASS/VOLUM Ordering Pr ovider: FRANCES GASPAR E] IN SERUM Report Rele ased Date/Time: Aug 19, 2021 10:15 AM TS HCS OR PLASMA Reporting Lab : [facility] [place] [address] [address] Performing Lab: [facility] [place] [address] [address] Vital Signs Combined list of inpatient and outpatient Vital Signs from Department of Defense and Veterans Affairs, ranging from 12 months to all on record, depending upon the facility. Vital Sign Value Date Comments Source SYSTOLIC BLOOD PRESSURE 121 11/15/2021 [facility] 10[facility]50:35 [place] [facility] DIASTOLIC BLOOD PRESSURE 80 11/15/2021 [facility] [place] [facility] PULSE OXIMETRY 99% 11/15/2021 [facility] 10[facility]50[facility] [place] [facility] WEIGHT 248 11/15/2021 [facility] [place] [facility] BMI 36kg/m2 11/15/2021 [facility] [place] [facility] PAIN 9 11/15/2021 [facility] [place] [facility] TEMPERATURE 97.6 11/15/2021 [facility] 10[facility] [place] [facility] PULSE 62 11/15/2021 [facility] [place] [facility] RESPIRATION 20 11/15/2021 [facility] [place] [facility] SYSTOLIC BLOOD PRESSURE 108 09/30/2021 [facility] 12:57:06 DIASTOLIC BLOOD PRESSURE 60 09/30/2021 [facility] 12:57:06 PULSE OXIMETRY 100% 09/30/2021 [facility] 12:57:06 PULSE 68 09/30/2021 [facility] 12:57:06 RESPIRATION 18 09/30/2021 [facility] 12:57:06 SYSTOLIC BLOOD PRESSURE 127 08/17/2021 [facility] 10:19:32 DIASTOLIC BLOOD PRESSURE 81 08/17/2021 [facility] 10:19:32 TEMPERATURE 97.7 08/17/2021 [facility] 10:19:32 PULSE 68 08/17/2021 [facility] 10:19:32 RESPIRATION 22 08/17/2021 [facility] 10:19:32 SYSTOLIC BLOOD PRESSURE 121 06/22/2021 [facility] 15:19:04 [place] [facility] DIASTOLIC BLOOD PRESSURE 73 06/22/2021 [facility] 15:19:[facility] [place] [facility] PULSE OXIMETRY 96% 06/22/2021 [facility] 15:19:04 [place] [facility] TEMPERATURE 96.9 06/22/2021 [facility] 15[facility]19:[facility] [place] [facility] PULSE 72 06/22/2021 [facility] 15[facility]19:[facility] [place] [facility] RESPIRATION 16 06/22/2021 [facility] 15[facility]19:04 [place] [facility] Encounters Combined list of: 1) Encounters from Department of Veterans Affairs facilities going back up to the last 18 months. 2) Encounters from the Department of Defense facilities going back up to 280 months. 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
with Provide r Comment s: Bipolar disorde r in partial remissi on (SCT [id number] ) [place] [address]-5.63 Diagnos Leopoldo ARREGUIN 09/08 [facility] W E/M 30 [id number] is: THERESA B CNTR L MIN ICD-10- WSTRN CM [place] F31.71 SETS Bipolar HCS disord, in partial remis, most recent epsd hypoman ic
with Provide r Comment s: Bipolar disorde r in partial remissi on (SCT [id number] ) HC PRO 12131-6.63 Diagnos ESTEFANIA,M 09/09 V A PHONE CALL [id number] is: DOYLE CNTRL 21-30 MIN ICD-10- WSTRN CM [place] F31.71 SETS Bipolar HCS disord, in partial remis, most recent epsd hypoman ic
with Provide r Comment s: Bipolar disorde r in partial remissi on (SCT [id number] ) HC PRO 51099-6.63 Adarsh Sotelo 09/10 V A PHONE CALL [id number] is: DOYLE CNTRL 11-20 MIN ICD-10- WSTRN CM [place] F31.71 SETS Bipolar HCS disord, in partial remis, most recent epsd hypoman ic
with Provide r Comment s: Bipolar disorde r in partial remissi on (SCT [id number] ) Outpatient 60601-6.63 09/12 [facility] Encounter [id number] [facility] [place] [facility] HC PRO Adarsh Sotelo 09/14 V A PHONE CALL [id number] is: DOYLE CNTRL 21-30 MIN ICD-10- WSTRN CM [place] F31.71 SETS Bipolar HCS disord, in partial remis, most recent epsd hypoman ic
with Provide r Comment s: Bipolar disorde r in partial remissi on (SCT [id number] ) Outpatient 85231-9.63 09/15 [facility] Encounter [id number] [facility] [place] [facility] Outpatient 99866-9.09/21 [facility] Encounter [id number] [facility] [place] [facility] SELF-HELP/ Adarsh Sotelo 09/22 [facility] PEER SVC [id number] is: LOUIE CN TRL PER 15MIN ICD-10- WSTRN CM [place] F31.71 SETS Bipolar HCS disord, in partial remis, most recent epsd hypoman ic
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 Outpatient 09/25 [facility] Encounter [id number] [facility] [place] [facility] PRO Diagnos AMELIA,CHANDANA 09/28 V A PHONE CALL [id number] is: SIERRAGustabo MELLOE CNTRL 5-10 MIN ICD-10- WSTRN CM [place] Z71.89 SETS 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<br/ >with Provide r Comment s: 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 OFFICE O/P Diagnos EVITA,D 09/28 [facility] EST LOW [id number] is: AVID CNTRL 20-29 MIN ICD-10- WSTRN CM [place] E11.9 SETS 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< br/>wit h Provide r Comment s: Diabete s Mellitu s Type 2 (SCT [id number] 6) Outpatient 09/29 [facility] Encounter [id number] [facility] [place] [facility] Outpatient 09/29 [facility] Encounter [id number] [facility] [place] [facility] HC PRO Diagnos EMELIA URTLEDGE 09/29 V A PHONE CALL [id number] is: LIE B CNTR L 5-10 MIN ICD-10- WSTRN CM [place] Z71.89 SETS 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<br/ >with Provide r Comment s: 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 Outpatient 34741-909/29 [facility] Encounter [id number] /2021 [facility] [place] [facility] Outpatient 63519-1.63 09/29 [facility] Encounter [id number] /2021 [facility] [place] Outpatient 24461-009/30 [facility] Encounter [id number] /2021 [facility] [place] Outpatient 28926-463 09/30 [facility] Encounter [id number] /2021 [facility] [place] Outpatient 80650-510/06 [facility] Encounter [id number] /2021 [facility] [place] Outpatient 06112-510/06 [facility] Encounter [id number] [facility] [place] HC PRO 85484-3.63 Diagnos Adarsh MAC 10/08 V A PHONE CALL [id number] is: ICHELLE A /2020 CNTRL 21-30 MIN ICD-10- WSTRN CM [place] F31.71 SETS Bipolar HCS disord, in partial remis, most recent epsd hypoman ic
with Provide r Comment s: Bipolar disorde r in partial remissi on (SCT [id number] ) OFFICE O/P Diagnos Germain JAMA 10/08 [facility] EST LOW [id number] is: AVID /2020 CNTRL 20-29 MIN ICD-10- WSTRN CM [place] E11.8 SETS 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< br/>wit h Provide r Comment s: 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 (SCT [id number]) Outpatient 11440-110/09 [facility] Encounter [id number] [facility] [place] [facility] [facility] PSYTX W PT Diagnos HAYLEEALLIS 10/13 [facility] 30 MINUTES [id number] is: ON CNTR L ICD-10- WSTRN CM [place] F31.71 SETS Bipolar HCS disord, in partial remis, most recent epsd hypoman ic
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 Outpatient 29796-2.63 10/21 [facility] Encounter [id number] [facility] [place] Outpatient 09933-0.63 10/22 [facility] Encounter [id number] [facility] [place] Outpatient 82218-4.63 10/22 [facility] Encounter [id number] [facility] [place] Outpatient 45685-7.63 10/26 [facility] Encounter [id number] [facility] [place] Outpatient 24686-9.63 10/26 [facility] Encounter [id number] [facility] [place] Outpatient 96002-9.63 10/27 [facility] Encounter [id number] [facility] [place] [address]-0.63 Diagnos HAYLEE,ALLIS 10/27 [facility] 30 MINUTES [id number] is: ON CNTR L ICD-10- WSTRN CM [place] F31.71 SETS Bipolar HCS disord, in partial remis, most recent epsd hypoman ic
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 Diagnos HAYLEEALLDESTINI 11/11 [facility] 30 MINUTES [id number] is: ON CNTR L ICD-10- WSTRN CM [place] F31.71 SETS Bipolar HCS disord, in partial remis, most recent epsd hypoman ic
with Provide r Comment s: Bipolar disorde r in partial remissi on (SCT [id number] ) Outpatient 84426-6.63 11/11 [facility] Encounter [id number] [facility] [place] OFFICE O/P 21617-9.63 Diagnos EMILIA-DUG 11/11 [facility] EST [id number] is: ,GERMAN L CNTR L MINIMAL ICD-10- WSTRN PROB CM [place] G89.4 SETS Chronic HCS pain syndrom e
w ith Provide r Comment s: Chronic pain syndrom e (SCT [id number] 06) Outpatient 60882-0.63 11/11 [facility] Encounter [id number] [facility] [place] Out[facility] 77716-4.63 11/13 [facility] En[place] [id number] [place] [address]-4.63 Diagnos EMILIA-DUG 11/17 [facility] EDUCATION [id number] is: ,GERMAN L CNTRL NOC ICD-10- WSTRN INDIVID CM [place] N20.0 SETS Calculu HCS s of kidney< br/>wit h Provide r Comment s: Calculu s of Kidney Outpatient 27848-8.63 11/17 [facility] Encounter [id number] [facility] [place] [facility] [facility] [place] 07935-5.63 Adarsh Sotelo 11/18 V A PHONE CALL [id number] is: DOYLE CNTRL 21-30 MIN ICD-10- W[facility] CM [place] F31.73 SETS Bipolar HCS disord, in partial remis, most recent episode manic<b r/>with Provide r Comment s: Bipolar Disorde r, in Partial Remissi on, most Recent Episode Manic Outpatient 10731-5.63 11/18 [facility] Encounter [id number] /2021 [facility] [place] [facility] Out[facility] 62797-1.63 DELONTECARMENCO 11/18 [facility] Encounter [id number] NELLI [facility] [place] OFFICE O/P 21851-0. SAVANA Kang 11/19 [facility] EST MOD [id number] is: CNTRL 30-39 MIN ICD-10- W[facility] CM I10 [place] [facility] al HCS (primar y) hyperte nsion<b r/>with Provide r Comment s: Hyperte nsion (SCT [id number] 3) [facility] 01952-2.63 [facility] [id number] NE[facility]I [facility] [place] 64015-4.63 LIANA ELLIS 11/23 [facility] En[facility] [id number] [facility] [place] 51088-9.63 11/24 [facility] En[facility] [id number] /2021 [facility] [place] [place] 04817-2.63 11/24 [facility] Encounter [id number] /2021 [facility] [place] [facility] HC PRO 79863-8.63 Adarsh Sotelo 11/25 V A PHONE CALL [id number] is: DOYLE CNTR[facility] 21-30 MIN ICD-10- [facility] CM [place] F31.72 SETS Bipolar HCS disord, in full remis, most recent episode hypoman ic
with Provide r Comment s: Bipolar Disorde r, in Full Remissi on, most Recent Episode Hypoman ic Outpatient 10015-5.63 11/27 [facility] En[facility] [id number] [facility] [place] PSYTX W PT Diagnos ALEX[place]RIA LEACH 11/27 [facility] 30 MINUTES [id number] is: ON CNTR L ICD-10- [facility] CM [place] Z72.0 SETS Tobacco HCS use<br/ >with Provide r Comment s: Tobacco depende nce with current use (SCT [id number] 03) Outpatient 88428-611/30 [facility] [id number] [facility] [place] OFF[facility] O/P Diagnos BRYON 11/30 [facility] EST [id number] is: ,GERMAN CNTR L MINIMAL ICD-10- [facility] PROB CM [place] N20.0 SETS Calculu HCS s of kidney< br/>wit h Provide r Comment s: Calculu s of Kidney OFFICE O/P Diagnos ZULEMA, 11/30 [facility] EST LOW [id number] is: OLGA CNT RL 20-29 MIN ICD-10- WSTRN CM C61 [place] Maligna SET[facility] nt HCS neoplas m of prostat e
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
with Provide r Comment s: Hyperte nsive Chronic Kidney Disease with Stage 1 through Stage 4 Chronic Kidney Disease , or unspeci fied Chronic Kidney Disease Outpatient 40611-512/09 [facility] Encounter [id number] [facility] [place] [address]-9 Diagnos Leopoldo ARREGUIN 12/10 [facility] W E/M 30 1.31298604 is: THERESA B CNTR L MIN ICD-10- [facility] CM [place] F10.10 SETS Alcohol HCS abuse, uncompl icated< br/>wit h Provide r Comment s: Alcohol Abuse (SCT [id number] 5) Outpatient 38430-912/11 [facility] Encounter [id number] /2021 [facility] HC PRO Diagnos ELADIA PENALOZA 12/14 V A PHONE CALL 1.16020950 is: ANE CNTR L 21-30 MIN ICD-10- [facility] CM [place] F31.77 SETS Bipolar HCS disord, in partial remis, most recent episode mixed<b r/>with Provide r Comment s: Bipolar disorde r in partial remissi on (SCT 5386275 ) HC PRO 84339-863 Diagnos ELADIA PENALOZA 12/16 V A PHONE CALL 1.67370486 is: CNTR L 21-30 MIN ICD-10- [facility] CM [place] F31.77 SETS Bipolar HCS disord, in partial remis, most recent episode mixed<b r/>with Provide r Comment s: Bipolar disorde r in partial remissi on (SCT 9499523 ) Outpatient 78164-363 12/16 [facility] Encounter [id number] /2021 [facility] Outpatient 96624-812/18 [facility] Encounter [id number] /2021 [facility] Outpatient 51143-3.63 12/22 [facility] Encounter [id number] [facility] EYE 88134-5.63 Diagnos OREN HOWARD 12/22 [place] EXAM&TX 1.71781890 is: Y J CNTRL ESTAB PT ICD-10- WSTRN 1/>VST CM [place] E11.9 SETS 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< br/>wit h Provide r Comment s: Type 2 Diabete s Mellitu s without Complic ations Outpatient 73433-7.63 12/23 [facility] Encounter [id number] /2021 [facility] Outpatient 80253-5.63 12/23 [facility] Encounter [id number] [facility] Outpatient 46207-9.63 12/23 [facility] Encounter 1.40421362 /2021 [facility] Outpatient 06795-8.63 12/23 [facility] Encounter [id number] [facility] Outpatient 12314-4.63 12/25 [facility] Encounter [id number] /2021 [facility] ELECTROCAR 96869-2.68 Diagnos ARIE GUY 12/28 CONNECT DIOGRAM 9.79291902 is: M ICUT REPORT ICD-10- HCS CM Z13.6 Encount er for screeni ng for cardiov ascular disorde rs
with Provide r Comment s: Encount er for Screeni ng for Cardiov ascular Disorde rs OFFICE O/P 72575-4.63 Diagnos ZULEMA, 12/28 [place] EST LOW 1.22568229 is: OLGA F CNT RL 20-29 MIN ICD-10- [facility] [place] N20.0 SETS Calculu HCS s of kidney< br/>wit h Provide r Comment s: Calculu s of Kidney Outpatient 45480-3.63 12/28 [facility] Encounter [id number] [facility] Outpatient 13021-8.63 12/29 [facility] Encounter [id number] [facility] Outpatient 96769-9.63 01/01 [facility] Encounter [id number] [facility] HC PRO 04583-2 Diagnos MELODIE HOBSON 01/04 V A PHONE CALL 1.58402373 is: ELIJAH R CNT RL 11-20 MIN ICD-10- [facility] CM [place] Z71.89 SETS 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<br/ >with Provide r Comment s: 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 HC PRO 75846-1 Diagnos SALINAS,MAR 01/20 V A PHONE CALL 1.18722403 is: IA M CNTR L 11-20 MIN ICD-10- [facility] [place] Z71.89 SETS 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<br/ >with Provide r Comment s: 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 Outpatient 35591-9.01/27 [facility] Encounter [id number] [facility] OFFICE O/P Diagnos AJIT,TI 01/27 [place] EST 1.51026271 is: MOTHY E CNTRL MINIMAL ICD-10- [facility] PROB CM I10 [place] Essenti SETS al HCS (primar y) hyperte nsion<b r/>with Provide r Comment s: Hyperte nsion HC PRO Diagnos ALEXANDRIA LEACH 01/27 V A PHONE CALL 1.16210227 is: ON CNTR L 5-10 MIN ICD-10- [facility] CM [place] F31.77 SETS Bipolar HCS disord, in partial remis, most recent episode mixed<b r/>with Provide r Comment s: Bipolar disorde r in partial remissi on (SCT [id number] ) OFFICE O/P Diagnos JANA NAQVI 01/27 [facility] EST SF 1.17308573 is: HELEN GROVESH CNTRL 10-19 MIN ICD-10- [facility] CM [place] M54.5 SETS Low HCS back pain
with Provide r Comment s: Low Back Pain Outpatient Diagnos GALE HUNG 01/28 [facility] Encounter 1.73926160 is: MATTHEW S /2020 CNTR L ICD-10- [facility] CM [place] M54.5 SETS Low HCS back pain
with Provide r Comment s: Low Back Pain OFFICE O/P Diagnos AILYN ALLEN 01/29 [place] EST 1.59930798 is: EN CNTRL MINIMAL ICD-10- [facility] PROB CM [place] F31.77 SETS Bipolar HCS disord, in partial remis, most recent episode mixed<b r/>with Provide r Comment s: Bipolar disorde r in partial remissi on (SCT [id number] ) PSYTX W PT Diagnos MANDY,P 01/29 [facility] 60 MINUTES 1.79078126 is: CNTR L ICD-10- STACIA [facility] CM [place] F31.77 SETS Bipolar HCS disord, in partial remis, most recent episode mixed<b r/>with Provide r Comment s: Bipolar disorde r in partial remissi on (SCT [id number] ) OFFICE O/P Diagnos RAYMOND, 01/29 [place] 1.80733682 is: LIZETH Z CNTRL 60-74 MIN ICD-10- WSTRN CM [place] F31.77 SETS Bipolar HCS disord, in partial remis, most recent episode mixed<b r/>with Provide r Comment s: Bipolar disorde r in partial remissi on (SCT [id number] ) CASE Diagnos MANDY,P 01/29 [facility] MANAGEMENT 1.34431135 is: CNTR L ICD-10- STACIA [facility] CM [place] F31.77 SETS Bipolar HCS disord, in partial remis, most recent episode mixed<b r/>with Provide r Comment s: Bipolar disorde r in partial remissi on (SCT 6581412 ) HC PRO Diagnos ROSEMARY,JEFF 02/01 V A PHONE CALL 1.09546870 is: CNTR L 5-10 MIN ICD-10- [facility] CM [place] Z74.1 SETS Need HCS for assista nce with persona l care
with Provide r Comment s: Need for Assista nce with Persona l Care HC PRO 98807-0.63 Diagnos RILEY,RU 02/02 V A PHONE CALL 1.46246525 is: CNTR L 11-20 MIN ICD-10- [facility] CM [place] Z74.1 SETS Need HCS for assista nce with persona l care
with Provide r Comment s: Need for Assista [place] [address]-4. Diagnos HAYLEE,ALLIS 02/04 [place] 45 MINUTES 1.27529190 is: ON CNTR L ICD-10- [facility] CM [place] F31.77 SETS Bipolar HCS disord, in partial remis, most recent episode mixed<b r/>with Provide r Comment s: Bipolar disorde r in partial remissi on (SCT [id number] ) HC PRO 07536-3. Diagnos RILEY,RU 02/05 V A PHONE CALL 1.49008206 is: CNTR L 5-10 MIN ICD-10- [facility] CM [place] Z74.1 SETS Need HCS for assista nce with persona l care
with Provide r Comment s: Need for Assista nce with Persona l Care HC PRO 82662-1.63 Adarsh Sotelo 02/08 V A PHONE CALL 1.43469112 [facility]30 [facility] ICD-10- W[facility]N CM [place] F31.77 SETS Bipolar HCS disord, in partial remis, most recent episode mixed<b r/>with Provide r Comment s: Bipolar disorde r in partial remissi on (SCT [id number] ) HC PRO 84777-2.63 Adarsh Sotelo 02/10 V A PHONE CALL 1.18015931 is: DOYLE CNTRL 21-30 MIN ICD-10- WSTRN CM [place] F31.77 SETS Bipolar HCS disord, in partial remis, most recent episode mixed<b r/>with Provide r Comment s: Bipolar disorde r in partial remissi on (SCT [id number] ) Outpatient 12309-4.63 02/12 [facility] Encounter [id number] [facility] Outpatient 72673-4.63 02/19 [facility] Encounter [id number] [facility] HC PRO 47817-9.63 Diagnos BERKLEYKOSTAS MELENDEZ 02/19 V A PHONE CALL 1.02920371 is: A CNTR L 11-20 MIN ICD-10- [facility] CM [place] F31.77 SETS Bipolar HCS disord, in partial remis, most recent episode mixed<b r/>with Provide r Comment s: Bipolar disorde r in partial remissi on (SCT [id number] ) [place] [address]-1 Diagnos ANTHONY LLOYD 02/19 [place] W E/M 30 1.92993721 is: T O CNTRL MIN ICD-10- [facility] CM [place] F31.77 SETS Bipolar HCS disord, in partial remis, most recent episode mixed<b r/>with Provide r Comment s: Bipolar disorde r in partial remissi on (SCT [id number] ) Outpatient 94345-7.63 02/19 [facility] Encounter [id number] /2021 [facility] OFFICE O/P 31378-9 Diagnos FARRISALI 02/22 [place] EST MOD 1.82275554 is: CE CNTRL 30-39 MIN ICD-10- [facility] CM [place] E11.9 SETS 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< br/>wit h Provide r Comment s: Diabete s Mellitu s Type 2 (SCT [id number] 6) Outpatient 96475-9.63 03/08 [facility] Encounter [id number] /2021 [facility] Outpatient 82534-0.63 03/17 [facility] Encounter [id number] /2021 [facility] [place] [address]-9.63 Diagnos RODRÍGUEZ,P 03/26 [facility] W E/M 30 1.82133033 is: THERESA CNTR L MIN ICD-10- [facility] CM [place] F12.20 SETS Cannabi HCS s depende nce, uncompl icated< br/>wit h Provide r Comment s: Cannabi s depende nce, episodi c (SCT 4679443 06) Outpatient 94226-4.63 03/29 [facility] Encounter [id number] /2021 [facility] Outpatient 81442-5.63 03/30 [facility] Encounter [id number] /2021 [facility] Outpatient 12776-0.63 04/02 [facility] Encounter [id number] [facility] [place] [address]-6.63 Diagnos LINDERME,K 04/02 [facility] 30 MINUTES 1.72465879 is: TASNEEM CNT RL ICD-10- [facility] CM [place] F31.77 SETS Bipolar HCS disord, in partial remis, most recent episode mixed<b r/>with Provide r Comment s: Bipolar disorde r in partial remissi on (SCT [id number] ) Outpatient 95662-2.63 04/02 [facility] Encounter [id number] [facility] Outpatient 63365-7.63 04/04 [facility] Encounter [id number] /2021 [facility] Outpatient 43912-7.63 04/06 [facility] Encounter [id number] /2021 [facility] Outpatient 05201-4.63 04/06 [facility] Encounter [id number] /2021 [facility] Outpatient 59224-1.63 04/07 [facility] Encounter [id number] [facility] Outpatient 38083-5.63 04/09 [facility] Encounter [id number] /2021 [facility] Outpatient 65186-8.63 04/09 [facility] Encounter [id number] /2021 [facility] Outpatient 63747-8.63 04/12 [facility] Encounter [id number] /2021 [facility] Outpatient 04086-0.63 04/12 [facility] Encounter [id number] [facility] [place] [address]-3.63 Diagnos Denise CORRALES 04/12 [facility] 30 MINUTES 1.86801926 is: TASNEEM M CNT RL ICD-10- [facility] CM [place] F31.77 SETS Bipolar HCS disord, in partial remis, most recent episode mixed<b r/>with Provide r Comment s: Bipolar disorde r in partial remissi on (SCT [id number] ) Outpatient 22098-7.63 04/13 [facility] Encounter [id number] [facility] Outpatient 82346-4.63 04/13 [facility] Encounter [id number] [facility] Outpatient 41654-8.63 04/13 [facility] Encounter [id number] [facility] Outpatient 96580-0.63 04/13 [facility] Encounter [id number] [facility] Outpatient 51893-9.63 04/14 [facility] Encounter [id number] /2021 [facility] Outpatient 53501-4.63 04/15 [facility] Encounter [id number] [facility] [place] [address]-7.63 Diagnos SALVADOR,CHR 04/15 WORCEST DIG [id number].[id number] is: ISTINE F ER VA ASSMT&MGMT 27 ICD-10- CLINIC 5-10 CM (631GE) J44.9 Chronic obstruc tive pulmona ry disease , unspeci fied
with Provide r Comment s: Chronic obstruc tive pulmona ry disease , unspeci fied Outpatient 24058-6.63 04/16 [facility] Encounter [id number] /2021 [facility] Outpatient 73736-1.63 04/26 [facility] Encounter [id number] /2021 [facility] Outpatient 50500-3.63 04/27 [facility] Encounter [id number] [facility] Outpatient 65007-9.63 04/28 [facility] Encounter [id number] [facility] Outpatient 24027-3.63 04/28 [facility] Encounter [id number] [facility] Outpatient 01206-1.63 05/03 [facility] Encounter [id number] /2021 [facility] Outpatient 42913-5.63 05/11 [facility] Encounter [id number] [facility] Outpatient 45039-3.63 05/12 [facility] Encounter [id number] [facility] ADM 97666-5.63 Diagnos HO,CHR 05/15 [facility] SARSCOV2 1.53986208 is: JOMAR E C NTRL 50MCG/0.25 ICD-10- WSTRN MLBST CM Z23 [place] Encount SETS er for HCS immuniz ation<b r/>with Provide r Comment s: Encount er for Immuniz ation Outpatient 24393-0.63 05/17 [facility] Encounter [id number] [facility] Outpatient 29992-1.63 05/18 [facility] Encounter [id number] [facility] Outpatient 94044-0.63 Diagnos RODRÍGUEZ,P 05/18 [facility] Encounter 1.71851300 is: THERESA B CNT RL ICD-10- W[facility] CM [place] F31.77 SETS Bipolar HCS disord, in partial remis, most recent episode mixed<b r/>with Provide r Comment s: Bipolar disorde r in partial remissi on (SCT [id number] ) Outpatient 36977-0.63 Diagnos ZULEMA, 05/21 [facility] Encounter 1.46753155 is: OLGA F C NTRL ICD-10- WSTR[facility] CM [place] F31.77 SETS Bipolar HCS disord, in partial remis, most recent episode mixed<b r/>with Provide r Comment s: Bipolar disorde r in partial remissi on (SCT [id number] ) Outpatient 28235-1.63 05/24 [facility] Encounter [id number] /2022 [facility] Outpatient 32859-7.63 05/24 [facility] Encounter [id number] [facility] HC PRO 04601-4.63 Diagnos INGRID,T 05/24 V A PHONE CALL 1.26668999 is: AMERA CNTR L 5-10 MIN ICD-10- [facility]N CM [place] Z71.89 SETS 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<br/ >with Provide r Comment s: 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 /2022 [facility] Outpatient 72378-1.63 06/02 [place] Encounter [id number] [facility] [place] [address]-8.63 Diagnos RODRÍGUEZ,P 06/02 [facility] W E/M 30 1.22481106 is: THERESA B CNTR L MIN ICD-10- WSTRN CM [place] F31.77 SETS Bipolar HCS disord, in partial remis, most recent episode mixed<b r/>with Provide r Comment s: Bipolar disorde r in partial remissi on (SCT [id number] ) HC PRO 35948-2.63 Diagnos MARYCARMEN MANE 06/02 V A PHONE CALL 1.37305114 is: C CNTR L 5-10 MIN ICD-10- [facility]STRN CM [place] Z71.89 SETS 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 Diagnos JULES ROGERS 06/02 [place] EST SF 3A5.788539 is: DO I MD N [facility] 10-19 MIN 19 ICD-10- CM F31.60 Bipolar disorde r, current episode mixed, unspeci fied
with Provide r Comment s: Bipolar Disorde r, Current Episode Mixed, unspeci fied OFFICE O/P 99966-8. Diagnos HAM WOODO 06/03 ANA EST 8.33980369 is: N K NOURSE MINIMAL ICD-10- [place] PROB CM [facility] R45.851 Suicida l ideatio ns
with Provide r Comment s: Suicida l Ideatio ns Outpatient 77768-3.06/03 [facility] Encounter [id number] /2022 [facility] HC PRO 84072-5.51 Diagnos NAM SHELTON 06/03 E DITH PHONE CALL 8.85731241 is: NIFER NO URSE 11-20 MIN ICD-10- [place] CM [facility] F31.9 Bipolar disorde r, unspeci fied
with Provide r Comment s: Bipolar Disorde r, unspeci fied Outpatient 58859-8.63 06/03 [facility] Encounter [id number] /2022 [facility] Outpatient 71671-1.63 06/03 [facility] Encounter [id number] /2022 [facility] Outpatient 00611-7.63 06/04 [facility] Encounter [id number] /2022 [facility] Outpatient 67445-5.63 06/04 [facility] Encounter [id number] [facility] Outpatient 51759-3.51 06/04 EDIT H Encounter [id number] ALIX [place] [facility] Outpatient 81054-9.63 06/07 [facility] Encounter [id number] [facility] Outpatient 54483-3.63 06/08 [facility] Encounter [id number] /2022 [facility] Outpatient 27735-6.63 06/08 [facility] Encounter [id number] /2022 [facility] [place] [address]-4.63 Diagnos RODRÍGUEZ,P 06/09 [facility] W E/M 30 1.66934910 is: THERESA B CNTR L MIN ICD-10- WSTRN CM [place] F31.77 SETS Bipolar HCS disord, in partial remis, most recent episode mixed<b r/>with Provide r Comment s: Bipolar disorde r in partial remissi on (SCT 3273869 ) Outpatient 91474-0.63 06/11 [facility] Encounter [id number] [facility] Outpatient 94722-2.63 06/14 [facility] Encounter [id number] [facility] Outpatient 95628-5.63 06/15 [facility] Encounter [id number] /2022 [facility] CASE 45246-4.63 Diagnos EZEQUIEL, 06/16 [facility] MANAGEMENT 1.14027203 is: GABRIELE CNTR L ICD-10- WSTRN CM [place] F31.77 SETS Bipolar HCS disord, in partial remis, most recent episode mixed<b r/>with Provide r Comment s: Bipolar disorde r in partial remissi on (SCT 6236821 ) Outpatient 91309-8.63 06/17 [facility] Encounter [id number] [facility] Outpatient 37027-1.63 06/18 [facility] Encounter [id number] /2022 [facility] Outpatient 97150-1.63 06/18 [facility] Encounter [id number] /2022 [facility] Outpatient 98606-8.63 06/21 [facility] Encounter [id number] /2022 [facility] Outpatient 75984-963 06/21 [facility] Encounter [id number] /2022 [facility] Outpatient 94046-0.63 06/22 [facility] Encounter [id number] /2022 [facility] Outpatient 06582-0.63 06/22 [facility] Encounter [id number] [facility] EYE EXAM Diagnos OREN HOWARD 06/22 [facility] ESTABLISH 1.13146296 is: Y J /2021 CN[facility] PATIENT ICD-10- WSTRN CM [place] H40.053 SETS Ocular HCS hyperte nsion, bilater al
with Provide r Comment s: Ocular Hyperte nsion, Bilater al OFFICE O/P 27217-7 Diagnos EMILIA-DUG 06/22 [place] EST 1.19032547 is: ,GERMAN L /2021 CNTR L MINIMAL ICD-10- WSTRN PROB CM [place] L03.116 SETS Celluli HCS tis of left lower limb
with Provide r Comment s: Celluli tis of left lower Limb Outpatient 79245-8.63 06/23 [facility] Encounter [id number] /2022 [facility] Outpatient 41946-2.63 06/23 [facility] Encounter [id number] [facility] Outpatient 40807-9.63 06/23 [facility] Encounter [id number] [facility] Outpatient 47381-4.63 06/29 [facility] Encounter [id number] [facility] Outpatient 39363-9.63 06/29 [facility] Encounter [id number] [facility] Outpatient 58259-1.63 06/30 [facility] Encounter [id number] [facility] Outpatient 52063-4.63 07/02 [facility] Encounter [id number] [facility] Outpatient 56323-2.63 07/06 [facility] Encounter [id number] /2022 [facility] Outpatient 32843-0.63 07/06 [facility] Encounter [id number] /2022 [facility] Outpatient 85799-8.63 07/08 [facility] Encounter [id number] /2022 [facility] [place] [facility] OFFICE O/P 21197-4.63 Diagnos EVITA,D 07/08 [place] EST LOW 1.94123108 is: AVID /2021 CNTRL 20-29 MIN ICD-10- WSTRN CM [place] E11.8 SETS 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< br/>wit h Provide r Comment s: 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 (SCT 2013619 986974) Outpatient 12629-8.63 03 [facility] Encounter [id number] [facility] Out[facility] 41774-0.63 07/12 [facility] Encounter [id number] [facility] Outpatient 91355-1.63 07/12 [facility] Encounter [id number] /2022 [facility] Outpatient 54440-5.63 07/13 [facility] Encounter [id number] [facility] Outpatient 31143-2.63 03/08 [facility] Encounter [id number] /2022 [facility] Outpatient 11107-6.63 07/15 [facility] Encounter [id number] /2022 [facility] Outpatient 69393-3.63 07/19 [facility] Encounter [id number] /2022 [facility] Outpatient 32480-4.63 07/19 [facility] Encounter [id number] /2022 [facility] Outpatient 08383-8.63 07/20 [facility] Encounter [id number] /2022 [facility] Outpatient 41019-4.63 07/21 [facility] Encounter [id number] [facility] Outpatient 28441-5.63 07/30 [facility] Encounter [id number] /2022 [facility] [place] [facility] PRO 17552-4.63 Diagnos NAVYA,MAY [address] S PRINGF PHONE CALL 8ET.[id number] is: IELD 5-10 MIN 55 ICD-10- CM Z71.0 Prsn encntr hlth serv to consult on behalf of another person< br/>wit h Provide r Comment s: Person [facility] s to Consult on Behalf of another Person Outpatient 51323-2.63 08/04 [facility] Encounter [id number] /2022 [facility] Outpatient 76969-8.63 08/09 [facility] Encounter [id number] [facility] Outpatient 16808-9.63 08/10 [facility] Encounter [id number] [facility] Outpatient 90381-0.63 08/10 [facility] Encounter [id number] [facility] Outpatient [id number] 08/11 [facility] [id number] [facility] Out[facility] [id number] 08/13 [facility] [id number] /2022 [facility] [place] [facility] Outpatient 67520-4.63 08/13 [facility] [id number] [facility] [place] [facility] Outpatient [id number] 08/16 [facility] En[facility] [id number] /2022 [facility] [place] Outpatient 09910-2.63 08/16 [facility] En[facility] [id number] /2022 [facility] [place] OFFICE O/P [id number] Diagnos NADAZDIN-B 08/17 [facility] EST MOD [id number] is: MERT,OG IE LD 30-39 MIN 94 ICD-10- NJENKA M CM F31.77 Bipolar disord, in partial remis, most recent episode mixed<b r/>with Provide r Comment s: Bipolar disorde r in partial remissi on (SCT [id number] ) Outpatient [id number] NADAZDIN-B 08/18 [facility] Encounter [id number] MERT,OG IELD 66 NJENKA M Outpatient [id number] 08/23 [id number] /2022 [facility] [place] Outpatient 33795-5.63 08/24 [facility] [id number] [facility] [place] Outpatient [id number] 08/25 [facility] En[facility] [id number] [facility] [place] OFFICE O/P 39104-6.63 Diagnos ZULMA,PETTY 08/26 [facility] EST [id number] is: MINH O IELD MINIMAL 05 ICD-10- PROB CM 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<br/ >with Provide r Comment s: Other specifi ed [employer] ing OFFICE O/P 98449-3.63 Diagnos EIVTA,D 08/27 [facility] EST LOW [id number] is: AVID /2021 [facility] 20-29 MIN ICD-10- [facility] [place] E11.8 SET[facility] 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< br/>wit h Provide r Comment s: 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 (SCT [id number]) Outpatient [id number] 08/30 [facility] [id number] Outpatient 39649-7.63 08/31 [facility] [id number] /2022 [facility] Outpatient 57829-3.63 08/31 [facility] En[facility] [id number] /2022 [facility] Outpatient 70996-5.63 09/02 [facility] En[facility] [id number] /2022 [facility] Outpatient 13901-3.63 09/06 [facility] En[facility] [id number] /2022 [facility] Outpatient 88875-5.63 IAGERONIMOOLINO, 09/06 [facility] [id number] [facility] Outpatient 80520-0.63 09/08 [facility] [id number] [facility] Outpatient 12468-0.63 09/09 [facility] En[facility] [id number] /2022 [facility] Outpatient 60987-5.63 Diagnos SAVANA FARRIS 09/09 [facility] En[facility] [id number] is: [facility] ICD-10- [facility] [place] E11.9 SETS 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
with Provide r Comment s: [facility] nsive Chronic Kidney Disease with Stage 1 through Stage 4 Chronic Kidney Disease , or unspeci fied Chronic Kidney Disease OFFICE O/P 31446-9 Diagnos EVITA,D 09/16 [facility] EST LOW [id number] is: AVID CNTRL 20-29 MIN ICD-10- WSTRN CM [place] Z86.31 SETS [facility] l history of diabeti c foot ulcer<b r/>with Provide r Comment s: Deedee l History of Diabeti c Foot Ulcer Outpatient 96969-3.63 09/27 [facility] Encounter [id number] /2022 [facility] [place] [facility] Outpatient [id number] 09/27 [facility] Encounter [id number] /2022 [facility] [facility] OFFICE O/P 06836-6 Diagnos BOJIMBO, 09/30 [facility] EST [id number] is: CHELY O IELD MINIMAL 41 ICD-10- PROB CM R10.30 Lower abdomin al pain, unspeci fied
with Provide r Comment s: Lower Abdomin al Pain, unspeci fied Outpatient [id number] 09/30 [facility] Encounter [id number] /2022 [facility] [place] [facility] OFFICE O/P 02243-7 Diagnos TRICIA,DA 09/30 [facility] EST SF [id number] is: VID A IELD 10-19 MIN 21 ICD-10- CM K59.01 Slow transit constip ation<b r/>with Provide r Comment s: Slow [place] [address]-7.63 Diagnos RODRÍGUEZ,P 09/30 [facility] W E/M 30 [id number] is: THERESA B CNTR L MIN ICD-10- WSTRN CM [place] F31.77 SETS Bipolar HCS disord, in partial remis, most recent episode mixed<b r/>with Provide r Comment s: Bipolar disorde r in partial remissi on (SCT [id number] ) OFFICE O/P 99473-1.63 Diagnos ZULMA,PETTY 10/05 [facility] EST [id number] is: MINH O /2021 IELD MINIMAL 70 ICD-10- PROB CM 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<br/ >with Provide r Comment s: Other specifi ed Cook Mess ing Outpatient 92916-6.63 10/06 [facility] Encounter [id number] /2022 [facility] [place] [facility] Outpatient 86900-5.63 10/12 [facility] Encounter [id number] /2022 [facility] [place] [facility] Outpatient 32013-1.63 10/18 [facility] Encounter [id number] [facility] [place] [facility] OFFICE O/P 90610-7.63 Diagnos LATOYA,GA 10/19 [facility] EST [id number] is: MICHELLEEL /2021 IELD MINIMAL 63 ICD-10- PROB CM Z23 Encount er for immuniz ation<b r/>with Provide r Comment s: Encount er for Immuniz ation Outpatient 42204-6.63 10/20 [facility] Encounter [id number] [facility] [place] [facility] Outpatient 88742-3.63 10/20 [facility] Encounter [id number] /2022 [facility] [place] [facility] Outpatient 86684-0.63 10/21 [facility] Encounter [id number] /2022 [facility] [facility] Outpatient 30506-9.63 10/25 [facility] Encounter [id number] [facility] [place] [facility] OFFICE O/P 23931-3.63 Diagnos ZULMA,PETTY 10/26 [facility] EST [id number] is: MINH O /2021 IELD MINIMAL 09 ICD-10- PROB CM 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<br/ >with Provide r Comment s: Other specifi ed Cook Mess ing Outpatient 23729-7.63 10/27 [facility] Encounter [id number] [facility] [place] [facility] 53394-7.63 10/28 [facility] Encounter [id number] /2022 [facility] [place] [facility] Outpatient 71999-7.63 10/30 [facility] Encounter [id number] /2022 [facility] [place] [facility] Outpatient 71127-4.63 11/01 [facility] Encounter [id number] /2022 [facility] [place] [facility] Outpatient 74952-4.63 11/01 [facility] Encounter [id number] /2022 [facility] [place] [facility] Outpatient 13225-4.63 11/03 [facility] Encounter [id number] /2022 [facility] [place] [facility] OFFICE O/P 75257-563 Diagnos KARY GARCIA 11/05 [facility] MOD [id number] is: IELD 45-59 MIN 64 ICD-10- CM F31.77 Bipolar disord, in partial remis, most recent episode mixed<b r/>with Provide r Comment s: Bipolar disorde r in partial remissi on (SCT [id number] ) Outpatient 09403-3.63 11/15 [facility] Encounter [id number] /2022 [facility] [place] [facility] Outpatient 80476-0.63 11/15 [facility] Encounter [id number] [facility] [place] [facility] MOST RCT 66874-4. Diagnos DOROTHY FONG 11/15 [facility] BP </= [id number] is: MOTHY E CNTRL 140/90 ICD-10- WSTRN CM I10 [place] Essenti SETS al HCS (primar y) hyperte nsion<b r/>with Provide r Comment s: Hyperte nsion OFFICE O/P 06876-5 Diagnos NELL SCANLON 11/15 [facility] EST LOW [id number] is: MARTY CNTRL 20-29 MIN ICD-10- WSTRN CM [place] R10.11 SETS Right HCS upper quadran t pain
with Provide r Comment s: Right upper Quadran t Pain Outpatient 03919-3.63 11/15 [facility] Encounter 1. [facility] [place] [facility] Outpatient 67839-0.63 11/15 [facility] Encounter 1. [facility] [place] [facility] Outpatient 57308-6.63 11/15 [facility] Encounter 1. [facility] [place] [facility] Outpatient 82461-2.63 11/15 [facility] Encounter 1. 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< br/>wit h Provide r Comment s: 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 (SCT [id number]) OFFICE O/P Diagnos MALINDA MAYA 12/22 [facility] EST [id number] is: MINH O IELD MINIMAL 57 ICD-10- PROB CM 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<br/ >with Provide r Comment s: Other specifi ed Cook Mess ing OFFICE O/P Diagnos KARY GARCIA 12/29 [facility] EST MOD [id number] is: TA IELD 30-39 MIN 48 ICD-10- CM F31.77 Bipolar disord, in partial remis, most recent episode mixed<b r/>with Provide r Comment s: Bipolar disorde r in partial remissi on (SCT [id number] ) Outpatient 91595-6.63 01/13 [facility] Encounter [id number] /2022 [facility] [place] [facility] CASE 02946-9.63 Diagnos HEBERT LI 01/13 [facility] [id number] is: /2021 IELD 84 ICD-10- CM F31.77 Bipolar disord, in partial remis, most recent episode mixed<b r/>with Provide r Comment s: Bipolar disorde r in partial remissi on (SCT [id number] ) HC PRO 61314-5.63 Diagnos EZEQUIEL, 01/20 V A PHONE CALL [id number] is: GABRIELE CNTR L 5-10 MIN ICD-10- WSTRN CM [place] F31.77 SETS Bipolar HCS disord, in partial remis, most recent episode mixed<b r/>with Provide r Comment s: Bipolar disorde r in partial remissi on (SCT [id number] ) Outpatient 76318-2.63 01/24 [facility] Encounter [id number] [facility] [place] [place] [facility] PRO 87744-6.63 Diagnos MALINDA MAYA 01/24 [facility] PHONE CALL [id number] is: MINH O IELD 21-30 MIN 71 ICD-10- CM 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<br/ >with Provide r Comment s: Other specifi ed Cook Mess ing Outpatient 60927-3.63 01/26 [facility] Encounter [id number] /2022 [facility] [place] [facility] Outpatient 86644-3.63 01/28 [facility] Encounter [id number] /2022 [facility] [place] [facility] Outpatient 59289-5.63 01/31 [facility] Encounter [id number] [facility] [place] [facility] HC PRO 92595-8.63 Diagnos STROKARLEE, 02/02 V A PHONE CALL [id number] is: GABRIELE CNTR L 5-10 MIN ICD-10- WSTRN CM [place] F31.77 SETS Bipolar HCS disord, in partial remis, most recent episode mixed<b r/>with Provide r Comment s: Bipolar disorde r in partial remissi on (SCT [id number] ) Outpatient 23798-7.63 02/07 [facility] Encounter [id number] /2022 [facility] [place] [facility] Outpatient 01570-5.63 02/09 [facility] Encounter [id number] IELD 38 Outpatient 51572-7.63 02/16 [facility] Encounter [id number] [facility] [place] [facility] Outpatient 22449-5.63 Diagnos KARY GARCIA 02/16 [facility] Encounter [id number] is: TA IELD 50 ICD-10- CM F31.77 Bipolar disord, in partial remis, most recent episode mixed<b r/>with Provide r Comment s: Bipolar disorde r in partial remissi on (SCT [id number] ) Outpatient 86891-4.63 02/17 [facility] Encounter [id number] [facility] [place] [facility] PRO 17712-2.63 Diagnos ROSEMARYRU 02/18 V A PHONE CALL [id number] is: TH CNTR L 5-10 MIN ICD-10- WSTRN CM [place] Z74.1 SETS Need [facility] for assista nce with persona l care
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
with Provide r Comment s: Need for Assista nce with Persona l Care Outpatient 13203-6.63 02/23 [facility] Encounter [id number] /2022 [facility] [place] [facility] HC PRO [id number] Diagnos RILEY, 02/23 V A PHONE CALL [id number] is: CNTR L 5-10 MIN ICD-10- WSTRN CM [place] Z74.1 SETS Need HCS for assista nce with persona l care
with Provide r Comment s: Need for Assista nce with Persona l Care Outpatient 89423-702/23 [facility] Encounter [id number] [facility] [place] [facility] CASE 88625-4 Diagnos RILEY, 02/25 [facility] MANAGEMENT [id number] is: CNTR L ICD-10- WSTRN CM [place] Z74.1 SETS Need HCS for assista nce with persona l care
with Provide r Comment s: Need for Assista nce with Persona l Care CASE Soy [facility] 02/25 [facility] MANAGEMENT [id number] is: CNTR L ICD-10- WSTRN CM [place] Z74.1 SETS Need HCS for assista nce with persona l care
with Provide r Comment s: Need for Assista nce with Persona l Care Outpatient 93807-563 02/28 [facility] Encounter [id number] [facility] [place] [facility] Outpatient 46554-863 MIRYAM, 03/01 [facility] Encounter [id number] [facility] [place] [facility] HC PRO 24096-963 ELADIA Spangler 03/02 V A PHONE CALL [id number] is: CNTR L 11-20 MIN ICD-10- WSTRN CM [place] R26.9 SETS Unspeci HCS fied abnorma lities of gait and mobilit y
w ith Provide r Comment s: Unspeci fied Abnorma lities of Gait and Mobilit y Outpatient [id number] 03/02 [facility] Encounter [id number] /2022 [facility] [place] [facility] HC PRO 09448-4.63 Soy PIMENTEL, 03/02 [facility] PHONE CALL [id number] is: RAMIRO IEL D 11-20 MIN 70 ICD-10- CM M54.59 Other low back pain
with Provide r Comment s: Other low back pain Social History Combined list of available smoking, tobacco, and other social [facility]. Social [facility] Response Date Comment Source Type Tobacco smoking VA-TOBACCO USER 04/12/2021 [facility] W[facility]N status NHIS EVERY DAY [place] [facility] History of VA-TOBACCO USE WI 04/12/2021 DE CNTRL W STRN tobacco use 30 MIN OF WAKEUP [place] [facility] History of VA-TOBACCO USE [place] 05/04/2020 DE CNTRL W STRN tobacco use 30 MIN OF WAKEUP [place] [facility] History of VA-TOBACCO NEVER 04/22/2019 DE CNTR WS TRN tobacco use USED [place] [facility] History of DE-TOBACCO QUIT 15 02/22/2019 [facility] tobacco use YRS OR MORE History of LIFETIME 06/22/2018 [facility] tobacco use NON-TOBACCO USER History of LIFETIME 05/04/2018 [facility] tobacco use NON-TOBACCO USER History of QUIT TOBACCO USE 11/13/2017 6 months [facility] tobacco use IN PAST YEAR History of QUIT TOBACCO USE 07/31/2017 [facility] tobacco use IN PAST YEAR History of CURRENT SMOKER 07/03/2017 as ordered [facility] tobacco use History of CURRENT SMOKER 06/20/2017 [facility] tobacco use History of CURRENT SMOKER 06/20/2017 3ppd [facility] tobacco use History of CURRENT SMOKER 04/26/2017 3 PPD [facility] tobacco use History of CURRENT SMOKELESS 08/29/2016 [facility] D tobacco use TOBACCO USER History of LIFETIME 08/24/2016 [facility] tobacco use NON-TOBACCO USER History of CURRENT SMOKER 08/24/2016 [facility] tobacco use History of CURRENT SMOKER 08/11/2016 [facility] tobacco use History of CURRENT SMOKER 07/25/2016 smokes 2ppd and will [facility] tobacco use talk w pcp re: cessation; complicated by his mental health comorbidities per pt History of V1-PT NOT 06/15/2016 [facility] tobacco use INTERESTED IN QUIT TOBACCO USE History of CURRENT SMOKER 02/22/2016 [facility] tobacco use History of V1-PT DECLINES 11/13/2015 [facility] tobacco use TOBACCO CESSATION MEDS History of CURRENT SMOKER 11/13/[address] [facility] tobacco use History of V1-TOBACCO CESS 06/12/2015 needs to see [facility] CNTRL WSTRN tobacco use MEDS NOT provider before [place] [facility] PRESCRIBED considering [facility] History of CURRENT SMOKER 10/11/2014 [facility] WSTR N tobacco use [place] [facility] History of V1-PT DECLINES 12/31/2013 DE [facility]L WSTR N tobacco use TOBACCO CESSATION [place] [facility] MEDS History of CURRENT SMOKER 10/22/2013 DE CNTR [facility]STR N tobacco use [place] [facility] History of V1-PT DECLINES 02/11/2013 [facility]L [facility] N tobacco use TOBACCO CESSATION [place] [facility] MEDS History of CURRENT SMOKER 09/28/2012 wants to quit [facility] CNTR WST RN tobacco use [place] [facility] History of V1-PT THINKING 06/20/2012 [facility] N tobacco use ABOUT QUIT TOBACCO [place] [facility] USE History of V1-PT DECLINES 01/11/2012 DE CN[facility]L WSTR N tobacco use TOBACCO CESSATION [place] [facility] MEDS History of CURRENT SMOKER 10/19/2011 2 packs per day [facility] W [facility]N tobacco use [place] [facility] History of V1-PT DECLINES 05/20/2011 DE [facility]L WSTR N tobacco use TOBACCO CESSATION [place] [facility] MEDS History of CURRENT SMOKER 10/29/2010 [facility] N tobacco use [place] [facility] History of V1-PT DECLINES 09/24/2010 DE [facility]TRL [facility] N tobacco use TOBACCO CESSATION [place] [facility] MEDS History of CURRENT TOBACCO 03/01/2010 [place] [facility] tobacco use USER CLINIC History of V1-PT READY TO 11/19/2009 DE CNTRL WSTR N tobacco use QUIT TOBACCO USE [place] [facility] History of CURRENT SMOKER 05/27/2009 1 ppd [facility] CNTRL WSTR N tobacco use [place] [facility] History of V1-PT DECLINES 12/12/2007 DE [facility]L [facility] N tobacco use TOBACCO CESSATION [place] [facility] MEDS History of QUIT TOBACCO USE 06/26/2007 [facility] tobacco use IN PAST YEAR History of QUIT TOBACCO USE 09/28/2006 ok [facility] tobacco use IN PAST YEAR History of QUIT TOBACCO USE 08/25/2006 [facility] tobacco use IN PAST YEAR History of QUIT TOBACCO USE 08/16/2006 ok [facility] tobacco use IN PAST YEAR History of QUIT TOBACCO USE 03/13/2006 x1 week [facility] tobacco use IN PAST YEAR History of CURRENT SMOKER 07/20/2004 smokes 1 and 1/2 pkts [facility] tobacco use daily History of CURRENT SMOKER 11/17/2003 [facility] tobacco use History of CURRENT SMOKER 12/04/2002 He is signed up to [facility] CNTR L WSTRN tobacco use attend a stop smoking [facility] group History of QUIT TOBACCO USE 09/27/2002 has stopped [facility] tobacco use IN PAST YEAR smoking cigars. He does not smoke cigarettes. History of CURRENT SMOKER 08/27/2002 [facility] tobacco use History of CURRENT SMOKER 09/19/2001 see MD note [facility] CNTRL WSTR N tobacco use [facility] Plan of Care List of future care activities from [facility] facilities. Additional future care activities may be listed in the Assessment and Plan section. Date/Time Care Activity Care Activity Detail Facility 03/07/2022 AMBULATORY - PSYCHIATRY AMBULATORY - PSYCHIATRY [facility] Advance Directives List of completed, amended, or rescinded Advance Directives on record at Department of Veterans Affairs facilities. An actual copy of the Directive is not included. Date Advance Directive Provider Source 04/22/2019 [facility] 06/20/2017 ADVANCE DIRECTIVE CON [facility] 06/02/2010 ADMINISTRATIVE NOTE SALMA MOLINA [facility] 07/15/2008 ADVANCE DIRECTIVE CARMELLA LOVE 07/10/2008 ADVANCE DIRECTIVE DISCUSSION ALICIA VALDERRAMA
[2022-03-05] MEDS: Albuterol Sulfate (0.083%) 2.5 MG/3 ML VIAL.NEB INHALE ×2 (15:52→19:24)
[2022-03-05] MEDS: methylPREDNISolone Sod Succ 40 MG/ML VIAL IVPUSH ×2 (15:57→21:47)
[2022-03-05] MEDS: 0.9 % Sodium Chloride Flush 3 ML SYRINGE IVFLUSH ×2 (15:58→21:48)
--- NOTE | 2022-03-05 16:25 | PHA.MEDREC ---
Pharmacy Consult ? Medication Reconciliation Pharmacy has completed the medication reconciliation. [facility] Patient report he is no on Zyprexa. Patient did not seem to be the best historian. Contact patient's Sarah who confirmed insulin dose and said she will bring in a list tonight. When list is brought it, it can be cross check with list from [facility]. Ginny Quiros, PinoD
[2022-03-05] MEDS: Heparin Sodium,Porcine 5,000 UNIT/ML VIAL 5000 UNIT SUBCUT (18:35)
--- NOTE | 2022-03-05 18:37 | PC.NURSE ---
[place] cath in place as pt was incontinent and unable to verbalize when needing to urinate
[2022-03-05 18:55] LABS: Glucose, Whole Blood 49 mg/dL (60-115)
[2022-03-05] MEDS: Dextrose 50 % 25 GM/50 ML SYRINGE IVPUSH (18:57)
--- NOTE | 2022-03-05 18:58 | PC.NURSE ---
POC 49 - pt drowsy, unable to stay awake, IV dextrose given per MAR
--- NOTE | 2022-03-05 20:54 | PC.NURSE ---
This RN took over care of pt. at 19:40 from BHARATI Gramajo. BHARATI Gramajo told this RN that report had already been given on pt. by him, and we were only awaiting transport for pt. to go up to Med-Surg. Received call at 20:54 from BHARATI White on Med-Surg. asking about a blood glucose of 49 at 19:00. Explained to RN that the previous RN did not mention anything about low POC of 49 in [id number] report, and that this RN didn't get to this unit and receive report from BHARATI Gramajo until 19:40.
[2022-03-05 21:17] LABS: Glucose, Whole Blood 167 mg/dL (60-115)
[2022-03-06] VITALS (10 sets, daily range): BP systolic 134–144; BP diastolic 64–77; PULSE 88–105; RESP 17–20; TEMP 36.1–37.2; O2SAT 91–94
[2022-03-06] MEDS: methylPREDNISolone Sod Succ 40 MG/ML VIAL IVPUSH ×4 (03:56→21:16)
[2022-03-06] MEDS: Heparin Sodium,Porcine 5,000 UNIT/ML VIAL 5000 UNIT SUBCUT ×2 (05:45→17:29)
[2022-03-06 07:29] LABS: MANUAL DIFF FLAG NO
[2022-03-06 07:37] LABS: Basophils Percent Auto 0.2 % (0-2); Hemoglobin 14.7 g/dl (14.0-18.0); Imm Gran Abs Auto 0.01 X10*3/uL (0.00-0.03); Imm Gran Pct Auto 0.2 % (0.0-0.4); Lymphocytes Absolute Auto 0.4 X10*3/uL (1.2-4.9); Lymphocytes Percent Auto 10.7 % (20-40); Mean Corpuscular Hemoglobin 30.6 pg (27.0-33.0); Mean Corpuscular Volume 102.1 fL (80.0-98.0); Mean Platelet Volume 10.7 fL (9.4-12.4); Neutrophils Absolute Auto 3.6 x10*3/uL (2.0-8.3); Neutrophils Percent Auto 87.9 % (45-73); Platelet Count 103 X10*3/uL (160-400); Red Cell Distribution Width 13.2 % (11.0-16.0); White Blood Count 4.1 X10*3/uL (4.8-10.8)
[2022-03-06 07:55] LABS: Glucose, Whole Blood 238 mg/dL (60-115)
[2022-03-06] MEDS: Albuterol Sulfate (0.083%) 2.5 MG/3 ML VIAL.NEB INHALE ×4 (08:08→19:37)
[2022-03-06] MEDS: 0.9 % Sodium Chloride Flush 3 ML SYRINGE IVFLUSH ×3 (08:38→21:12)
[2022-03-06] MEDS: Insulin Lispro 100 UNIT/ML 3 ML VIAL SUBCUT ×4 (08:38→21:11)
--- NOTE | 2022-03-06 09:25 | HO.PM.IMPN ---
Subjective Subjective Date of Service: 03/06/22 Review of Systems Follow up COPD, falls Feeling better no sob Physical Exam Vital Signs: Vital Signs: Last Vital Signs Temp 98.1 F 03/06/22 08:00 Pulse 97 03/06/22 08:14 Resp 18 03/06/22 08:14 BP 144/76 H 03/06/22 08:00 Pulse Ox 92 03/06/22 08:00 O2 Del Method 03/06/22 08:00 O2 Flow Rate 0.5 03/06/22 08:00 BMI result Body Mass Index 41.9 Appearing in no acute distress lung sounds are clear to auscultation heart regular rate rhythm, clear S1, S2 positive bowel sounds, abdomen is soft, nontender neuro patient is alert x3, no focal deficits Bilateral hand finger amputation, chronic Objective Data Active Medications Acetaminophen (Acetaminophen 325 Mg Tablet) 650 mg PO Q6H PRN PRN Reason: Pain, Mild (Pain Scale 1-3) Albuterol Sulfate (Albuterol Sulfate (0.083%) 2.5 Mg/3 Ml Vial.Neb) 2.5 mg INHALE RQ4H WHILE AWAKE [facility] Last Admin: 03/06/22 08:08 Dose: 2.5 mg Documented By: HOLLY Dextrose (Dextrose 50 % 25 Gm/50 Ml Syringe) 25 gm IVPUSH Q15M PRN; Protocol PRN Reason: per Hypoglycemia Standing Ord. Last Admin: 03/05/22 18:57 Dose: 25 gm Documented By: PAYAL Glucose (Glucose Gel 15 Gm Gel..Gram.) 15 gm PO Q15M PRN; Protocol PRN Reason: per Hypoglycemia Standing Ord. Heparin Sodium (Porcine) (Heparin Sodium,Porcine 5,000 Unit/Ml Vial) 5,000 unit SUBCUT Q12H [facility] Last Admin: 03/06/22 05:45 Dose: 5,000 unit Documented By: IRAMRISAdarsh Insulin Human Lispro (Insulin Lispro 100 Unit/Ml 3 Ml Vial) 0 unit SUBCUT QIDACHS [facility]; Protocol Last Admin: 03/06/22 08:38 Dose: 4 unit Documented By: ARIK Methylprednisolone Sodium Succinate (Methylprednisolone Sod Succ 40 Mg/Ml Vial) 40 mg IVPUSH Q6H [facility] Last Admin: 03/06/22 08:38 Dose: 40 mg Documented By: ARIK Ondansetron HCl (Ondansetron Hcl 4 Mg/2 Ml Vial) 4 mg IVPUSH Q8H PRN PRN Reason: Nausea and Vomiting Pharmacy Consult (Consult Rx Perform Med Rec) 1 each MISCELLANE ONCE PRN PRN Reason: Consult order Sodium Chloride (0.9 % Sodium Chloride Flush 3 Ml Syringe) 3 ml IVFLUSH QSHIFT [facility] Last Admin: 03/06/22 08:38 Dose: 3 ml Documented By: ARIK Labs CBC & Chem 7: 03/06/22 07:14 03/05/22 08:37 Labs: Laboratory Results - last 24 hr 03/05/22 03/05/22 03/05/22 09:45 09:45 18:52 MCV MCH MCHC RDW Plt Count MPV Immature Gran % (Auto) Neut % (Auto) Lymph % (Auto) [place] % (Auto) Eos % (Auto) Baso % (Auto) Lymph # (Auto) [place] # (Auto) Eos # (Auto) Baso # (Auto) Abs Immat Gran (auto) Absolute Neuts (auto) Absolute Nucleated RBC Nucleated RBC % (auto) POC Glucose 49 L* Magnesium Urine Color Yellow Urine Appearance Clear Urine pH 5.5 Ur Specific [place] 1.015 Urine Protein Trace Urine Glucose (UA) 100 H Urine Ketones Negative Urine Blood Negative Urine Nitrite Negative Ur Leukocyte Esterase Negative Urine Opiates Screen Not Detected Urine Fentanyl Screen Not Detected Ur Barbiturates Screen Not Detected Ur Phencyclidine Scrn Not Detected Ur Amphetamines Screen Not Detected U Benzodiazepines Scrn Not Detected Urine Cocaine Screen Not Detected U Marijuana (THC) Screen Not Detected 03/05/22 03/06/22 03/06/22 20:57 07:13 07:14 MCV 102.1 H MCH 30.6 MCHC 30.0 L RDW 13.2 Plt Count 103 L MPV 10.7 Immature Gran % (Auto) 0.2 Neut % (Auto) 87.9 H Lymph % (Auto) 10.7 L [place] % (Auto) 1.0 L Eos % (Auto) 0.0 Baso % (Auto) 0.2 Lymph # (Auto) 0.4 L [place] # (Auto) 0.0 L Eos # (Auto) 0.0 Baso # (Auto) 0.0 Abs Immat Gran (auto) 0.01 Absolute Neuts (auto) 3.6 Absolute Nucleated RBC 0.000 Nucleated RBC % (auto) 0.0 POC Glucose 167 H Magnesium Cancelled Urine Color Urine Appearance Urine pH Ur Specific [place] Urine Protein Urine Glucose (UA) Urine Ketones Urine Blood Urine Nitrite Ur Leukocyte Esterase Urine Opiates Screen Urine Fentanyl Screen Ur Barbiturates Screen Ur Phencyclidine Scrn Ur Amphetamines Screen U Benzodiazepines Scrn Urine Cocaine Screen U Marijuana (THC) Screen 03/06/22 07:40 MCV MCH MCHC RDW Plt Count MPV Immature Gran % (Auto) Neut % (Auto) Lymph % (Auto) [place] % (Auto) Eos % (Auto) Baso % (Auto) Lymph # (Auto) [place] # (Auto) Eos # (Auto) Baso # (Auto) Abs Immat Gran (auto) Absolute Neuts (auto) Absolute Nucleated RBC Nucleated RBC % (auto) POC Glucose 238 H Magnesium Urine Color Urine Appearance Urine pH Ur Specific [place] Urine Protein Urine Glucose (UA) Urine Ketones Urine Blood Urine Nitrite Ur Leukocyte Esterase Urine Opiates Screen Urine Fentanyl Screen Ur Barbiturates Screen Ur Phencyclidine Scrn Ur Amphetamines Screen U Benzodiazepines Scrn Urine Cocaine Screen U Marijuana (THC) Screen Assessment and Plan (1) Acute exacerbation of chronic obstructive pulmonary disease (COPD): Status: Acute Plan 66 year old man placed on observation for COPD exacerbation Acute hypoxic resp failure secondary to COPD exacerbation. Resolved s/p 88% on RA covid and flu neg No PNA on CT scheduled duonebs solumedrol Supplemental oxygen as needed Falls head, bilateral knee, cervical spine and chest CT on negative for any acute abnormality PT eval pending CKD stage 2 Stable CAD asa, statin, BB Hypertension continue home medications Diabetes SS, ADA diet Mental health continue home medications DVT prophylaxis with Heparin Attending Dr. Feliciano Full code Quality Stroke Does the patient have a stroke diagnosis?: No VTE Prior VTE?: No VTE Risk Level:: Medical - moderate - high VTE Device Contraindication: Treatment Not Indicated VTE Drug Contraindication: N/A - Med Ordered
[2022-03-06 09:56] LABS: Anion Gap 21 (12-20); Blood Urea Nitrogen 21 mg/dL (9-16); Calcium 8.5 mg/dL (8.4-10.2); Carbon Dioxide 16 mmol/L (22-29); Chloride 109 mmol/L (96-108); Creatinine Clr Calc Pharmacy 64.2; Estimated Glomerular Filt Rate 53; Glucose Random 251 mg/dL (60-115); Magnesium 1.5 mg/dL (1.6-2.6); Potassium 6.2 mmol/L (3.3-5.1); Sodium 140 mmol/L (135-145)
[2022-03-06 11:16] LABS: Glucose, Whole Blood 350 mg/dL (60-115)
[2022-03-06 12:41] LABS: VBG Base Excess -3.5 mmol/L; VBG HCO3 22 mmol/L (22-26); VBG pCO2 45 mmHg; VBG pO2 47 mmHg
[2022-03-06 12:43] LABS: Venous Blood Gas Refer to POC result
[2022-03-06] MEDS: Sodium Zirconium Cyclosilicate 10 GM POWD.PACK PO (13:01)
[2022-03-06] MEDS: Magnesium Sulfate/H2O 2 GM/50 ML PIGGYBACK IV (13:02)
[2022-03-06] MEDS: Doxycycline Hyclate 100 MG in 0.9 % Sodium Chloride 250 ML 166.67 MG IV (15:07)
[2022-03-06] MEDS: clonazePAM 1 MG TABLET PO ×2 (15:08→21:12)
[2022-03-06 17:32] LABS: Glucose, Whole Blood 338 mg/dL (60-115)
[2022-03-06] MEDS: carvediloL 3.125 MG TABLET PO (17:32)
[2022-03-06] MEDS: Insulin Lispro 100 UNIT/ML 3 ML VIAL 14 UNIT SUBCUT (17:33)
[2022-03-06] MEDS: Acetaminophen 325 MG TABLET 650 MG PO (18:08)
[2022-03-06 20:20] LABS: Glucose, Whole Blood 316 mg/dL (60-115)
[2022-03-06] MEDS: Atorvastatin Calcium 40 MG TABLET PO (21:12)
[2022-03-06] MEDS: Insulin Glargine,Hum.rec.anlog 100 UNIT/ML 10 ML VIAL 30 UNIT SUBCUT (21:12)
[2022-03-07] VITALS (11 sets, daily range): BP systolic 123–165; BP diastolic 64–85; PULSE 50–96; RESP 17–23; TEMP 36.6–37.7; O2SAT 90–96
[2022-03-07] MEDS: Doxycycline Hyclate 100 MG in 0.9 % Sodium Chloride 250 ML 166.67 MG IV ×2 (02:09→13:50)
[2022-03-07] MEDS: methylPREDNISolone Sod Succ 40 MG/ML VIAL IVPUSH ×4 (04:01→20:43)
[2022-03-07] MEDS: Heparin Sodium,Porcine 5,000 UNIT/ML VIAL 5000 UNIT SUBCUT ×2 (05:46→16:45)
[2022-03-07] MEDS: Omeprazole 20 MG CAPSULE.DR PO (05:47)
[2022-03-07] MEDS: Acetaminophen 325 MG TABLET 650 MG PO (05:52)
[2022-03-07 07:40] LABS: Glucose, Whole Blood 345 mg/dL (60-115)
[2022-03-07] MEDS: lamoTRIgine 25 MG TABLET 50 MG PO (07:58)
[2022-03-07] MEDS: Aspirin Enteric Coated 81 MG TABLET.DR PO (07:58)
[2022-03-07] MEDS: carvediloL 3.125 MG TABLET PO ×2 (07:58→16:44)
[2022-03-07] MEDS: clonazePAM 1 MG TABLET PO ×3 (07:59→20:43)
[2022-03-07] MEDS: Insulin Lispro 100 UNIT/ML 3 ML VIAL 14 UNIT SUBCUT ×3 (08:00→16:44)
[2022-03-07] MEDS: Lidocaine 4 % Patch ADH..PATCH 1 PATCH TRANSDERMA (08:00)
[2022-03-07] MEDS: Insulin Lispro 100 UNIT/ML 3 ML VIAL SUBCUT ×3 (08:00→16:44)
[2022-03-07] MEDS: 0.9 % Sodium Chloride Flush 3 ML SYRINGE IVFLUSH ×2 (08:01→20:45)
--- NOTE | 2022-03-07 08:38 | P.CDIC_ITS ---
CDI Concurrent Query Documentation Clarification: PHYSICIAN'S DOCUMENTATION REQUEST Date of Query: 03/07/22 0838 Patient Name: Juma Oakley Admit Date: 03/06/22 Dear Doctor, A review of the medical record indicates additional documentation may be needed. Please review below and update the documentation accordingly. Clinical Indicators: Risk Factors/Clinical Indicators/Treatments Nursing notes Height and Weight - BMI 42.0 5' 6 in height. Extreme obesity III If possible, please provide an associated diagnosis related to the abnormal BMI, such as: For a BMI >= 40: * Overweight * Obesity * Due to excess calories * Drug induced * Due to other cause * Severe or Morbid Obesity * With alveolar hypoventilation * Without alveolar hypoventilation Use of terms such as suspected, likely, concern for, or probable (associated with a specific diagnosis that is being evaluated, monitored, or treated as if it exists) are acceptable and can be coded in the inpatient setting, when documented at the time of discharge. Thank you, Amber Palacios [facility], CDIS Extension: [phone] Please use your independent medical judgment in providing your response. THIS QUERY IS PART OF THE PERMANENT MEDICAL RECORD Other Diagnosis: morbid obesity
[2022-03-07] MEDS: Albuterol Sulfate (0.083%) 2.5 MG/3 ML VIAL.NEB INHALE ×4 (09:00→20:06)
--- NOTE | 2022-03-07 09:32 | MHC.CLN ---
NUTRITION ADDED CARDIAC TO DIET ORDER DUE TO HX CARDIAC ISSUES. DIET=DIABETIC 1800 KCALS, CARDIAC.
[2022-03-07 10:44] LABS: Anion Gap 22 (12-20); Blood Urea Nitrogen 37 mg/dL (9-16); Calcium 9.5 mg/dL (8.4-10.2); Carbon Dioxide 13 mmol/L (22-29); Chloride 111 mmol/L (96-108); Creatinine Clr Calc Pharmacy 51.7; Estimated Glomerular Filt Rate 42; Glucose Random 400 mg/dL (60-115); Potassium 5.9 mmol/L (3.3-5.1); Sodium 140 mmol/L (135-145)
[2022-03-07 10:50] LABS: Glucose, Whole Blood 360 mg/dL (60-115)
--- NOTE | 2022-03-07 11:21 | HO.PM.IMPN ---
Subjective Subjective Date of Service: 03/07/22 Review of Systems Follow up COPD, falls Feeling better no sob Physical Exam Vital Signs: Vital Signs: Last Vital Signs Temp 99.8 F 03/07/22 10:37 Pulse 83 03/07/22 10:37 Resp 23 H 03/07/22 10:37 BP 142/67 H 03/07/22 10:37 Pulse Ox 90 L 03/07/22 10:37 O2 Del Method 03/07/22 10:37 O2 Flow Rate 3 03/07/22 10:37 BMI result Body Mass Index 41.9 Appearing in no acute distress lung sounds are clear to auscultation heart regular rate rhythm, clear S1, S2 positive bowel sounds, abdomen is soft, nontender neuro patient is alert x3, no focal deficits Objective Data Active Medications Acetaminophen (Acetaminophen 325 Mg Tablet) 650 mg PO Q6H PRN PRN Reason: Pain, Mild (Pain Scale 1-3) Last Admin: 03/07/22 05:52 Dose: 650 mg Documented By: EDILBERTO Albuterol Sulfate (Albuterol Sulfate (0.083%) 2.5 Mg/3 Ml Vial.Hanna) 2.5 mg INHALE RQ4H WHILE AWAKE [facility] Last Admin: 03/07/22 09:00 Dose: 2.5 mg Documented By: ARASH Aspirin (Aspirin Enteric Coated 81 Mg Tablet.) 81 mg PO DAILY [facility] Last Admin: 03/07/22 07:58 Dose: 81 mg Documented By: JUAN MIGUEL Atorvastatin Calcium (Atorvastatin Calcium 40 Mg Tablet) 40 mg PO BEDTIME [facility] Last Admin: 03/06/22 21:12 Dose: 40 mg Documented By: EDILBERTO Carvedilol (Carvedilol 3.125 Mg Tablet) 3.125 mg PO BIDWM [facility]; Protocol Last Admin: 03/07/22 07:58 Dose: 3.125 mg Documented By: JUAN MIGUEL Clonazepam (Clonazepam 1 Mg Tablet) 1 mg PO TID [facility] Last Admin: 03/07/22 07:59 Dose: 1 mg Documented By: JUAN MIGUEL Dextrose (Dextrose 50 % 25 Gm/50 Ml Syringe) 25 gm IVPUSH Q15M PRN; Protocol PRN Reason: per Hypoglycemia Standing Ord. Last Admin: 03/05/22 18:57 Dose: 25 gm Documented By: PAYAL Glucose (Glucose Gel 15 Gm Gel..Gram.) 15 gm PO Q15M PRN; Protocol PRN Reason: per Hypoglycemia Standing Ord. Heparin Sodium (Porcine) (Heparin Sodium,Porcine 5,000 Unit/Ml Vial) 5,000 unit SUBCUT Q12H [facility] Last Admin: 03/07/22 05:46 Dose: 5,000 unit Documented By: EDILBERTO Hydroxyzine HCl (Hydroxyzine Hcl 25 Mg Tablet) 25 mg PO BID PRN PRN Reason: Anxiety Doxycycline Hyclate 100 mg/ (Sodium Chloride) 250 mls @ 166.67 mls/hr IV Q12H [facility] Last Infusion: 03/07/22 04:03 Dose: 0 mls/hr Documented By: EDILBERTO Insulin Glargine (Insulin Glargine,Hum.Rec.Anlog 100 Unit/Ml 10 Ml Vial) 30 unit SUBCUT BEDTIME [facility] Last Admin: 03/06/22 21:12 Dose: 30 unit Documented By: EDILBERTO Insulin Human Lispro (Insulin Lispro 100 Unit/Ml 3 Ml Vial) 0 unit SUBCUT QIDACHS [facility]; Protocol Last Admin: 03/07/22 08:00 Dose: 8 unit Documented By: JUAN MIGUEL Insulin Human Lispro (Insulin Lispro 100 Unit/Ml 3 Ml Vial) 14 unit SUBCUT TIDAC [facility] Last Admin: 03/07/22 08:00 Dose: 14 unit Documented By: JUAN MIGUEL Lamotrigine (Lamotrigine 25 Mg Tablet) 50 mg PO DAILY [facility] Last Admin: 03/07/22 07:58 Dose: 50 mg Documented By: JUAN MIGUEL Lidocaine (Lidocaine 4 % Patch Adh..Patch) 1 patch TRANSDERMA DAILY [facility] Last Admin: 03/07/22 08:00 Dose: 1 patch Documented By: JUAN MIGUEL Methylprednisolone Sodium Succinate (Methylprednisolone Sod Succ 40 Mg/Ml Vial) 40 mg IVPUSH Q6H [facility] Last Admin: 03/07/22 11:01 Dose: 40 mg Documented By: JUAN MIGUEL Non-Formulary Medication (Doxepin [Silenor]) 6 mg PO BEDTIME [facility] Omeprazole (Omeprazole 20 Mg Capsule.) 20 mg PO DAILY@0630 [facility] Last Admin: 03/07/22 05:47 Dose: 20 mg Documented By: HO.ODRISM Ondansetron HCl (Ondansetron Hcl 4 Mg/2 Ml Vial) 4 mg IVPUSH Q8H PRN PRN Reason: Nausea and Vomiting Pharmacy Consult (Consult Rx Perform Med Rec) 1 each MISCELLANE ONCE PRN PRN Reason: Consult order Sodium Chloride (0.9 % Sodium Chloride Flush 3 Ml Syringe) 3 ml IVFLUSH QSHIFT [facility] Last Admin: 03/07/22 08:01 Dose: 3 ml Documented By: JUAN MIGUEL Labs CBC & Chem 7: 03/06/22 07:14 03/07/22 10:28 Labs: Laboratory Results - last 24 hr 03/06/22 03/06/22 03/06/22 12:33 17:18 20:13 VBG pH 7.30 L VBG pCO2 45 VBG pO2 47 VBG HCO3 22 VBG O2 Saturation 76.0 VBG Base Excess -3.5 Anion Gap Estim Creat Clear Calc Estimated GFR POC Glucose 338 H 316 H Random Glucose Calcium 03/07/22 03/07/22 03/07/22 07:32 10:28 10:41 VBG pH VBG pCO2 VBG pO2 VBG HCO3 VBG O2 Saturation VBG Base Excess Anion Gap 22 H Estim Creat Clear Calc 51.7 Estimated GFR 42 POC Glucose 345 H 360 H* Random Glucose 400 H* Calcium 9.5 D Microbiology Microbiology Results: Microbiology 03/05/22 08:36 Blood Culture - Final Blood - Venous Coag negative Staphylococcus 03/05/22 08:36 Blood Culture - Preliminary Blood - Venous No growth after 48 hours. Assessment and Plan (1) Acute exacerbation of chronic obstructive pulmonary disease (COPD): Status: Acute Plan 66 year old man placed on observation for COPD exacerbation GPC bacteremia 1/2 final result pending Started Doxycycline for now Acute hypoxic resp failure secondary to COPD exacerbation. Resolved s/p 88% on RA covid and flu neg No PNA on CT scheduled duonebs solumedrol Supplemental oxygen as needed Falls head, bilateral knee, cervical spine and chest CT on negative for any acute abnormality PT eval pending CKD stage 2 Stable CAD asa, statin, BB Hypertension continue home medications Diabetes SS, ADA diet Mental health continue home medications Morbid obesity. BMI 42.0 Discussed importance of weight management as this may be contributing to worsening of other comorbidities Patient stated that he does not want his medical condition to be discussed with his DVT prophylaxis with Heparin Attending Dr. Arboleda Full code Quality Stroke Does the patient have a stroke diagnosis?: No VTE Prior VTE?: No VTE Risk Level:: Medical - moderate - high VTE Device Contraindication: Treatment Not Indicated VTE Drug Contraindication: N/A - Med Ordered
[2022-03-07] MEDS: Sodium Bicarbonate 8.4% 150 MEQ in Dextrose 5 % 850 ML 100 MEQ IV (15:22)
[2022-03-07 16:33] LABS: Glucose, Whole Blood 158 mg/dL (60-115)
[2022-03-07 19:57] LABS: Glucose, Whole Blood 129 mg/dL (60-115)
[2022-03-07] MEDS: Atorvastatin Calcium 40 MG TABLET PO (20:43)
[2022-03-07] MEDS: Insulin Glargine,Hum.rec.anlog 100 UNIT/ML 10 ML VIAL 30 UNIT SUBCUT (20:43)
[2022-03-08] VITALS (11 sets, daily range): BP systolic 139–187; BP diastolic 70–81; PULSE 50–103; RESP 17–22; TEMP 36.4–37.1; O2SAT 87–95
--- NOTE | 2022-03-08 | ECG_ITS ---
Test Reason : TACHYCARDIA Blood Pressure : / mmHG Vent. Rate : 053 BPM Atrial Rate : 053 BPM P-R Int : 188 ms QRS Dur : 150 ms QT Int : 470 ms P-R-T Axes : 052 035 049 degrees QTc Int : 441 ms Sinus bradycardia Right bundle branch block Nonspecific ST abnormality Abnormal ECG When compared with ECG of 05-MAR-2022 08:50, Vent. rate has decreased BY 30 BPM Referred By: Tea De Santiago Electronically Signed By:ABISAI YOUNG MD
[2022-03-08] MEDS: Doxycycline Hyclate 100 MG in 0.9 % Sodium Chloride 250 ML 166.67 MG IV (01:11)
[2022-03-08] MEDS: Sodium Bicarbonate 8.4% 150 MEQ in Dextrose 5 % 850 ML 100 MEQ IV (03:27)
[2022-03-08] MEDS: methylPREDNISolone Sod Succ 40 MG/ML VIAL IVPUSH ×4 (03:47→21:49)
[2022-03-08] MEDS: Nicotine 21 MG PATCH.TD24 TRANSDERMA ×2 (03:47→07:43)
[2022-03-08] MEDS: Heparin Sodium,Porcine 5,000 UNIT/ML VIAL 5000 UNIT SUBCUT ×2 (05:42→17:24)
[2022-03-08] MEDS: Omeprazole 20 MG CAPSULE.DR PO (05:42)
[2022-03-08 07:33] LABS: Glucose, Whole Blood 243 mg/dL (60-115)
[2022-03-08] MEDS: carvediloL 3.125 MG TABLET PO ×2 (07:41→17:24)
[2022-03-08] MEDS: clonazePAM 1 MG TABLET PO ×3 (07:42→20:48)
[2022-03-08] MEDS: Aspirin Enteric Coated 81 MG TABLET.DR PO (07:42)
[2022-03-08] MEDS: lamoTRIgine 25 MG TABLET 50 MG PO (07:43)
[2022-03-08] MEDS: Insulin Lispro 100 UNIT/ML 3 ML VIAL SUBCUT ×3 (07:44→17:24)
[2022-03-08] MEDS: Insulin Lispro 100 UNIT/ML 3 ML VIAL 14 UNIT SUBCUT ×3 (07:44→17:24)
[2022-03-08] MEDS: Lidocaine 4 % Patch ADH..PATCH 1 PATCH TRANSDERMA (07:44)
[2022-03-08] MEDS: Albuterol Sulfate (0.083%) 2.5 MG/3 ML VIAL.NEB INHALE ×4 (07:59→20:12)
[2022-03-08 09:30] LABS: Anion Gap 14 (12-20); Blood Urea Nitrogen 34 mg/dL (9-16); Calcium 9.2 mg/dL (8.4-10.2); Carbon Dioxide 28 mmol/L (22-29); Chloride 104 mmol/L (96-108); Creatinine Clr Calc Pharmacy 58.9; Estimated Glomerular Filt Rate 48; Glucose Random 270 mg/dL (60-115); Potassium 4.1 mmol/L (3.3-5.1); Sodium 142 mmol/L (135-145)
--- NOTE | 2022-03-08 10:13 | P.PNIM_ITS ---
Subjective Subjective Date of Service: 03/08/22 <Tea De Santiago NP - Last Filed: 03/08/22 17:02> 03/09/22 <Raciel Arboleda MD - Last Filed: 03/09/22 11:48> Review of Systems Follow up COPD, falls Feeling better no sob <Tea De Santiago NP - Last Filed: 03/08/22 17:02> Physical Exam Vital Signs: Vital Signs: Last Vital Signs Temp 97.5 F 03/08/22 07:12 Pulse 103 H 03/08/22 08:43 Resp 18 03/08/22 08:01 BP 139/70 03/08/22 07:12 Pulse Ox 90 L 03/08/22 07:12 O2 Del Method 03/08/22 07:12 O2 Flow Rate 3 03/08/22 04:00 BMI result Body Mass Index 41.9 <Tea De Santiago NP - Last Filed: 03/08/22 17:02> Appearing in no acute distress lung sounds are clear to auscultation heart regular rate rhythm, clear S1, S2 positive bowel sounds, abdomen is soft, nontender neuro patient is alert x3, no focal deficits Bilat finger amp, chronic <Tea De Santiago NP - Last Filed: 03/08/22 17:02> Objective Data Active Medications Acetaminophen (Acetaminophen 325 Mg Tablet) 650 mg PO Q6H PRN PRN Reason: Pain, Mild (Pain Scale 1-3) Last Admin: 03/07/22 05:52 Dose: 650 mg Documented By: EDILBERTO Albuterol Sulfate (Albuterol Sulfate (0.083%) 2.5 Mg/3 Ml Vial.Neb) 2.5 mg INHALE RQ4H WHILE AWAKE [facility] Last Admin: 03/08/22 07:59 Dose: 2.5 mg Documented By: KAREN Aspirin (Aspirin Enteric Coated 81 Mg Tablet.) 81 mg PO DAILY [facility] Last Admin: 03/08/22 07:42 Dose: 81 mg Documented By: IAM Atorvastatin Calcium (Atorvastatin Calcium 40 Mg Tablet) 40 mg PO BEDTIME [facility] Last Admin: 03/07/22 20:43 Dose: 40 mg Documented By: ZEN Carvedilol (Carvedilol 3.125 Mg Tablet) 3.125 mg PO BIDWM [facility]; Protocol Last Admin: 03/08/22 07:41 Dose: 3.125 mg Documented By: IAM Clonazepam (Clonazepam 1 Mg Tablet) 1 mg PO TID [facility] Last Admin: 03/08/22 07:42 Dose: 1 mg Documented By: IAM Dextrose (Dextrose 50 % 25 Gm/50 Ml Syringe) 25 gm IVPUSH Q15M PRN; Protocol PRN Reason: per Hypoglycemia Standing Ord. Last Admin: 03/05/22 18:57 Dose: 25 gm Documented By: PAYAL Glucose (Glucose Gel 15 Gm Gel..Gram.) 15 gm PO Q15M PRN; Protocol PRN Reason: per Hypoglycemia Standing Ord. Heparin Sodium (Porcine) (Heparin Sodium,Porcine 5,000 Unit/Ml Vial) 5,000 unit SUBCUT Q12H [facility] Last Admin: 03/08/22 05:42 Dose: 5,000 unit Documented By: ZEN Hydroxyzine HCl (Hydroxyzine Hcl 25 Mg Tablet) 25 mg PO BID PRN PRN Reason: Anxiety Sodium Bicarbonate 150 meq/ (Dextrose) 1,000 mls @ 100 mls/hr IV .Q10H [facility] Last Admin: 03/08/22 08:56 Dose: Not Given Documented By: IAM Non-Admin Reason: IV Running Insulin Glargine (Insulin Glargine,Hum.Rec.Anlog 100 Unit/Ml 10 Ml Vial) 30 u nit SUBCUT BEDTIME [facility] Last Admin: 03/07/22 20:43 Dose: 30 unit Documented By: ZEN Insulin Human Lispro (Insulin Lispro 100 Unit/Ml 3 Ml Vial) 0 unit SUBCUT QIDACHS [facility]; Protocol Last Admin: 03/08/22 07:44 Dose: 4 unit Documented By: IAM Insulin Human Lispro (Insulin Lispro 100 Unit/Ml 3 Ml Vial) 14 unit SUBCUT TIDAC [facility] Last Admin: 03/08/22 07:44 Dose: 14 unit Documented By: IAM Lamotrigine (Lamotrigine 25 Mg Tablet) 50 mg PO DAILY [facility] Last Admin: 03/08/22 07:43 Dose: 50 mg Documented By: IAM Lidocaine (Lidocaine 4 % Patch Adh..Patch) 1 patch TRANSDERMA DAILY [facility] Last Admin: 03/08/22 07:44 Dose: 1 patch Documented By: IAM Methylprednisolone Sodium Succinate (Methylprednisolone Sod Succ 40 Mg/Ml Vial) 40 mg IVPUSH Q6H [facility] Last Admin: 03/08/22 03:47 Dose: 40 mg Documented By: ZEN Nicotine (Nicotine 21 Mg Patch.Td24) 21 mg TRANSDERMA DAILY [facility] Last Admin: 03/08/22 07:43 Dose: 21 mg Documented By: IAM Non-Formulary Medication (Doxepin [Silenor]) 6 mg PO BEDTIME [facility] Omeprazole (Omeprazole 20 Mg Capsule.Dr) 20 mg PO DAILY@0630 [facility] Last Admin: 03/08/22 05:42 Dose: 20 mg Documented By: ZEN Ondansetron HCl (Ondansetron Hcl 4 Mg/2 Ml Vial) 4 mg IVPUSH Q8H PRN PRN Reason: Nausea and Vomiting Pharmacy Consult (Consult Rx Perform Med Rec) 1 each MISCELLANE ONCE PRN PRN Reason: Consult order Sodium Chloride (0.9 % Sodium Chloride Flush 3 Ml Syringe) 3 ml IVFLUSH QSHIFT [facility] Last Admin: 03/08/22 07:51 Dose: Not Given Documented By: IAM Non-Admin Reason: IV Running <Tea De Santiago NP - Last Filed: 03/08/22 17:02> Labs CBC & Chem 7: : 03/06/22 07:14 03/08/22 08:20 <Tea De Santiago NP - Last Filed: 03/08/22 17:02> Labs: Laboratory Results - last 24 hr 03/07/22 03/07/22 03/07/22 10:28 10:41 15:49 Anion Gap 22 H Estim Creat Clear Calc 51.7 Estimated GFR 42 POC Glucose 360 H* 158 H Random Glucose 400 H* Calcium 9.5 D 03/07/22 03/08/22 03/08/22 19:30 07:15 08:20 Anion Gap 14 Estim Creat Clear Calc 58.9 Estimated GFR 48 POC Glucose 129 H 243 H Random Glucose 270 H Calcium 9.2 <Tea De Santiago NP - Last Filed: 03/08/22 17:02> Microbiology Microbiology Results: Microbiology 03/05/22 08:36 Blood Culture - Final Blood - Venous Coag negative Staphylococcus 03/05/22 08:36 Blood Culture - Preliminary Blood - Venous No growth after 48 hours. <Tea De Santiago NP - Last Filed: 03/08/22 17:02> Assessment and Plan (1) Acute exacerbation of chronic obstructive pulmonary disease (COPD): Status: Acute <Tea De Santiago NP - Last Filed: 03/08/22 17:02> Assessment and Plan: 66 year old man placed on observation for COPD exacerbation coag-negative staph Stop doxycycline Acute hypoxic resp failure secondary to COPD exacerbation. Resolved s/p 88% on RA covid and flu neg No PNA on CT scheduled duonebs solumedrol Supplemental oxygen as needed Hyperkalemia.? Resolved with lokelma TESSA on CKD. Trending down IV fluids stopped Anion gap metabolic acidosis Possibly secondary to TESSA Fluids with bicarb Nephrology consultation Falls head, bilateral knee, cervical spine and chest CT on negative for any acute abnormality PT recommend home with services CKD stage 2 Stable CAD asa, statin, BB Hypertension continue home medications Diabetes SS, ADA diet Mental health continue home medications Morbid obesity. BMI 42.0 Discussed importance of weight management as this may be contributing to worsening of other comorbidities DVT prophylaxis with Heparin Attending Dr. Arboleda Full code <Tea De Santiago NP - Last Filed: 03/08/22 17:02> Quality Stroke Does the patient have a stroke diagnosis?: No <Tea De Santiago NP - Last Filed: 03/08/22 17:02> VTE Prior VTE?: No <Tea De Santiago NP - Last Filed: 03/08/22 17:02> VTE Risk Level:: Medical - moderate - high <Tea De Santiago NP - Last Filed: 03/08/22 17:02> VTE Device Contraindication: Treatment Not Indicated <Tea De Santiago NP - Last Filed: 03/08/22 17:02> VTE Drug Contraindication: N/A - Med Ordered <Tea De Santiago NP - Last Filed: 03/08/22 17:02>
[2022-03-08 11:40] LABS: Glucose, Whole Blood 313 mg/dL (60-115)
--- NOTE | 2022-03-08 12:37 | MHC.CM.PN ---
HOSPITALIST attempted to contact and caregiver answered phone and reported pt's is sick and may need to go to the hospital and pt can't return home if is not there, cm met w/pt who also feels uncomfortable being alone in home. Cm received call from [facility] reporting they had contacted and gave them a lot of information and are now questioning if home is a safe DC plan for pt, hospitalist aware and pt will be re-seen by PT. CM will cont to follow and [facility] referrals [facility].
[2022-03-08] MEDS: 0.9 % Sodium Chloride Flush 3 ML SYRINGE IVFLUSH ×2 (13:28→21:49)
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
[2022-03-08 16:15] LABS: Glucose, Whole Blood 199 mg/dL (60-115)
[2022-03-08 20:32] LABS: Glucose, Whole Blood 134 mg/dL (60-115)
[2022-03-08] MEDS: Insulin Glargine,Hum.rec.anlog 100 UNIT/ML 10 ML VIAL 30 UNIT SUBCUT (20:48)
[2022-03-08] MEDS: Atorvastatin Calcium 40 MG TABLET PO (20:48)
--- NOTE | 2022-03-08 21:09 | CONS_ITS ---
DATE OF SERVICE: 03/08/2022 REASON FOR CONSULTATION: I was asked to see patient to assist in evaluation and management of patient's acute kidney injury as reflected by a creatinine that was 1.65 yesterday, whereas his baseline creatinine seems to be around 1.3 along with hyperkalemia. Potassium was 5.9 yesterday and a bicarb that was down to 13 yesterday. HISTORY OF PRESENT ILLNESS: In summary, the patient is a 66-year-old gentleman who presented to emergency room after multiple falling episodes. Apparently, patient had tripped and fell to his knees. He denies any chest pain, fever, sweats or chills. No loss of consciousness. In the emergency room, he is noted to have some element of respiratory failure, felt to be due to COPD exacerbation. He denied any nausea, vomiting, fever, sweats, or chills. In the emergency room, he was given antibiotics for possible pneumonia and placed on some magnesium replacement. He had acute kidney injury and metabolic abnormalities as noted. PAST MEDICAL HISTORY: As listed including anxiety, cardiomyopathy, coronary artery disease, neoplasm of the bladder, details are unclear. History of stroke in the past. Kidney stones. Neurogenic bladder. Non-STEMI myocardial infarction in the past. Prostate cancer, and sleep apnea. MEDICATIONS: His medications on admission listed including aspirin, Klonopin, doxepin, hydroxyzine, insulin, lisinopril, omeprazole, carvedilol, Lasix, are all listed. Current medications on the JUL. He is now on IV sodium bicarb infusion. ALLERGIES: HE HAS A SMOKING HISTORY. DENIES ALCOHOL. NO ILLICIT DRUG USE. DENIES TAKING NSAIDS. FAMILY HISTORY: Noncontributory. REVIEW OF SYSTEMS: As noted above. PHYSICAL EXAMINATION: VITAL SIGNS: Blood pressure of 180/80 with a heart rate in the 60s. HEAD: Atraumatic, normocephalic. NECK: Supple. Mucous membranes moist. LUNGS: Breath sounds bilaterally. CARDIAC: Regular rate and rhythm. ABDOMEN: Soft. EXTREMITIES: Show 1+ edema. LABORATORY DATA: Shows sodium 140, potassium 5.9, chloride 111, bicarb 13, anion gap 22, BUN 37, creatinine 1.65. Blood sugar 400, this is from yesterday. As mentioned, baseline creatinine is 1.3. Hemoglobin of 14.7, hematocrit 40, white blood count 4.1. Urine studies show urinalysis essentially negative by dipstick except for some glucose. IMPRESSION: 66-year-old diabetic with acute kidney injury on chronic kidney disease along with an anion gap metabolic acidosis after a falling episode. 1. Acute kidney injury. This is most likely multifactorial including relative renal hypoperfusion and being on an NANCY inhibitor, which can interfere with renal perfusion along with his last severe hyperglycemia. Given his falling episodes, should rule out rhabdo and we will check CPK. 2. Other possibilities including obstructive uropathy need to be considered, especially since he has had a history of neurogenic bladder. His renal function does not improve on this morning's labs then we will get an ultrasound. 3. Anion gap metabolic acidosis with hyperkalemia. This should improve with the IV sodium bicarb. We will see what today's labs are. The sodium bicarb infusion increasing serum bicarb should cause potassium moved into cells and help with hyperkalemia along with improving his bicarb. Will need to check ketones. Make sure does not have diabetic ketoacidosis cause for his anion gap. 4. Stage 3 chronic kidney disease, baseline creatinine 1.3. 5. Hypertension. Now, he is off his NANCY inhibitor. We will see about placing on alternative blood pressure medications such as a calcium channel parul versus reintroducing NANCY inhibitor returning his lab this morning. SUGGESTIONS: At this time include recheck labs this morning as this will dictate further interventions such as IV fluids and further laboratory studies, as well as renal ultrasound depending on the results. Also we will look at blood pressure medication adjustment depending on today's labs. We will follow the patient with the team. We will add on CPK to previous labs. MD LAMAR Constantino/TROY / [id number]
[2022-03-09] VITALS (10 sets, daily range): BP systolic 137–192; BP diastolic 63–89; PULSE 64–89; RESP 16–19; TEMP 35.9–37; O2SAT 89–97
[2022-03-09] MEDS: methylPREDNISolone Sod Succ 40 MG/ML VIAL IVPUSH ×3 (03:12→15:58)
[2022-03-09] MEDS: Omeprazole 20 MG CAPSULE.DR PO (05:28)
[2022-03-09] MEDS: Heparin Sodium,Porcine 5,000 UNIT/ML VIAL 5000 UNIT SUBCUT ×2 (05:28→16:38)
[2022-03-09 07:55] LABS: Glucose, Whole Blood 310 mg/dL (60-115)
[2022-03-09] MEDS: Albuterol Sulfate (0.083%) 2.5 MG/3 ML VIAL.NEB INHALE ×3 (08:24→16:18)
[2022-03-09] MEDS: Insulin Lispro 100 UNIT/ML 3 ML VIAL SUBCUT ×3 (08:25→16:37)
[2022-03-09] MEDS: Insulin Lispro 100 UNIT/ML 3 ML VIAL 14 UNIT SUBCUT ×3 (08:26→16:38)
[2022-03-09] MEDS: 0.9 % Sodium Chloride Flush 3 ML SYRINGE IVFLUSH ×2 (08:27→15:58)
[2022-03-09] MEDS: Nicotine 21 MG PATCH.TD24 TRANSDERMA (08:27)
[2022-03-09 08:44] LABS: D Dimer High Sensitivity 280 NG/ML
--- NOTE | 2022-03-09 09:12 | P.CDIC_ITS ---
CDI Concurrent Query Documentation Clarification: PHYSICIAN'S DOCUMENTATION REQUEST Date of Query: 03/09/22911 Patient Name: Juma Oakley Admit Date: 03/06/22 Dear Doctor, A review of the medical record indicates additional documentation may be needed. Please review below and update the documentation accordingly. Clinical Indicators: Consistency and clarity of medical documentation: Risk Factors/Clinical Indicators/Treatments Nephrology note 03/08 - CKD 3 Progress note 03/08 - CKD 2 Based on the above, could you clarify in the Progress Notes the appropriate diagnosis, if significant, that supports the above abnormalities and additional evaluation, monitoring, and/or treatment rendered: * CKD 2 * CKD 3 * Other (please specify) * Unable to determine Use of terms such as suspected, likely, concern for, or probable (associated with a specific diagnosis that is being evaluated, monitored, or treated as if it exists) are acceptable and can be coded in the inpatient setting, when documented at the time of discharge. Thank you, Amber Palacios [facility], CDIS Extension: [phone] Please use your independent medical judgment in providing your response. THIS QUERY IS PART OF THE PERMANENT MEDICAL RECORD Other Diagnosis: CKD 3
[2022-03-09] MEDS: Lidocaine 4 % Patch ADH..PATCH 1 PATCH TRANSDERMA (10:26)
[2022-03-09] MEDS: Aspirin Enteric Coated 81 MG TABLET.DR PO (10:26)
[2022-03-09] MEDS: lamoTRIgine 25 MG TABLET 50 MG PO (10:26)
[2022-03-09] MEDS: carvediloL 3.125 MG TABLET PO ×2 (10:26→16:39)
[2022-03-09] MEDS: clonazePAM 1 MG TABLET PO ×2 (10:26→14:19)
[2022-03-09 10:35] LABS: Glucose, Whole Blood 380 mg/dL (60-115)
--- NOTE | 2022-03-09 10:46 | PM.PNNEP ---
Subjective Subjective Date of Service: 03/09/22 Interval history: Seen and examiend,events noited Physical Exam Vital Signs: Vital Signs: Last Vital Signs Temp 98.2 F 03/09/22 07:52 Pulse 75 03/09/22 09:31 Resp 18 03/09/22 08:25 BP 173/89 H 03/09/22 07:52 Pulse Ox 89 L 03/09/22 07:52 O2 Del Method 03/09/22 07:52 O2 Flow Rate 4 03/09/22 07:52 BMI result Body Mass Index 41.9 Objective Data Labs CBC & Chem 7: 03/06/22 07:14 03/08/22 08:20 Labs: Laboratory Results - last 24 hr 03/08/22 03/08/22 03/08/22 08:20 11:20 16:11 D-Dimer High Sensitivty POC Glucose 313 H 199 H Total Creatine Kinase 53 03/08/22 03/09/22 03/09/22 20:22 07:08 08:15 D-Dimer High Sensitivty 280 POC Glucose 134 H 310 H Total Creatine Kinase 03/09/22 10:28 D-Dimer High Sensitivty POC Glucose 380 H* Total Creatine Kinase Microbiology Microbiology Results: Microbiology 03/05/22 08:36 Blood - Venous Blood Culture - Final Coag negative Staphylococcus 03/05/22 08:36 Blood - Venous Blood Culture - Preliminary No growth after 48 hours. Procedures Date of Service Date of Service: 03/09/22 Assessment & Plan Assessment and plan (1) Acute exacerbation of chronic obstructive pulmonary disease (COPD): Status: Acute Plan 1. TESSA: resolved with IV 2. AGMA: resolved with IV NaHCO3 3. CKD 3: most c/w DN/HTN renal dis 4. HTN REC: ok to r/s RASi ( will use cozaar inplace of lisiniopril); track renal func; avoid NToxins Time Spent With Patient Time: Total time spent is greater than 50% in coordination of care (as documented) at patient's floor/unit and/or counseling patient: Progress Note: Quality Stroke Does the patient have a stroke diagnosis?: No
--- NOTE | 2022-03-09 11:42 | MHC.CM.PN ---
EMR REVIEWED, PER HOSPITALIST PT REMAINS CLEARED FOR D/C, CM SPOKE TO PT'S [facility] THIS AM WHO REPORTS SHE WILL GIVE PT ONE MORE CHANCE AT HOME AND SHE WILL BE HOME AROUND 4PM, [facility] REQUESTING C TRANSPORT PT HOME AT 5PM, [facility] ALSO REPORTS PT HAS MEDICARE A/B. PT WILL BE DISCHARGED ON NEW HOME O2 AT [facility]OM WILL DELIVER THIS EVENING, NEW [facility] SERVICES AND SUDEEP FOR TRANSPORT. CM CONTACTED [facility] TO DETERMINE WHETHER PT COULD [facility] AND [facility] REPORTS PT ONLY HAS TRANSPORT TO FACILITIES OR APPTS, CM ENQUIRED ABOUT LTC BENEFIT AND [facility] REPORTS PT DOES HAVE AN LTC BENEFIT.
[2022-03-09] MEDS: Losartan Potassium 50 MG TABLET PO (12:08)
--- NOTE | 2022-03-09 14:16 | PM.DS ---
DS: Providers Provider Date of Service: 03/09/22 Date of admission: 03/06/22 09:01 Primary care physician: Unknown Physician Consults: 03/07/22 11:32 Consult to Nephrology Routine Consulting Provider: Douglas Swain Reason for consultation: tessa Has provider been notified: No Attending physician on discharge: Raciel Arboleda Discharging clinician: Tea De Santiago DS: Diagnosis Discharge Diagnosis (1) Acute exacerbation of chronic obstructive pulmonary disease (COPD): Status: Acute DS: Summary Hospital Course Hospital Course: 58-year-old man presented to the ER after multiple falls at home.? Patient reports them as mechanical as he tripped on a rock in his home felt his knee.? He had another fall this morning and landed on his right knee.? He denied any trauma to his head. He reports feeling his legs weak But no loss of consciousness It appears as family insisted that he come to the hospital.? While here he was also found to be an acute hypoxic respiratory failure secondary to COPD. He denies chest pain, nausea, vomiting, diarrhea, no fever leukocytosis noted, magnesium 1.2.? In the ER, he was given Rocephin, azithromycin, IV magnesium dose of of Zofran.? Placed on observation for COPD exacerbation and falls. coag-negative staph Stopped doxycycline Acute hypoxic resp failure secondary to COPD exacerbation. Resolved s/p 88% on RA covid and flu neg No PNA on CT Treated with solumedrol and duonebs Prednisone 40mg for 4 days Hyperkalemia.? Resolved with lokelma TESSA on CKD.? Trending down IV fluids stopped Anion gap metabolic acidosis Possibly secondary to TESSA Fluids with bicarb Nephrology consultation Falls head, bilateral knee, cervical spine and chest CT on negative for any acute abnormality PT recommend home with services CKD stage 2 Stable CAD asa, statin, BB Hypertension continue home medications Diabetes SS, ADA diet Mental health continue home medications Morbid obesity. BMI 42.0 Discussed importance of weight management as this may be contributing to worsening of other comorbidities Time Spent with Patient Time attestation: Total time spent providing and/or coordinating discharge services: Discharge coordination time: Greater than 30 minutes Quality: Safe Use of Opioids Does Pt have an Active Cancer Diagnosis on the Problem List?: No Quality: Stroke Does the patient have a stroke diagnosis?: No Physical Exam Vital Signs: Vital Signs: Last Vital Signs Temp 97.4 F 03/09/22 11:44 Pulse 89 03/09/22 11:44 Resp 17 03/09/22 11:44 BP 137/63 03/09/22 11:44 Pulse Ox 89 L 03/09/22 07:52 O2 Del Method 03/09/22 07:52 O2 Flow Rate 4 03/09/22 07:52 BMI result Body Mass Index 41.9 Appearing in no acute distress head is normocephalic atraumatic eyes pupils are PERRLA sclera is anicteric mouth throat mucous membranes are intact and moist neck is supple no lymphadenopathy, no JVD noted lung sounds are clear to auscultation heart regular rate rhythm, clear S1, S2 positive bowel sounds, abdomen is soft, nontender neuro patient is alert x3, no focal deficits DS: Data Data Completed and Pending Completed studies during hospitalization [Text1]: Procedures Assistance with Respiratory Ventilation, Less than 24 Consecutive Hours, Continuous Positive Airway Pressure (04/04/21) Labs on day of discharge: Laboratory Results - last 24 hr 03/08/22 03/08/22 03/09/22 16:11 20:22 07:08 D-Dimer High Sensitivty POC Glucose 199 H 134 H 310 H 03/09/22 03/09/22 08:15 10:28 D-Dimer High Sensitivty 280 POC Glucose 380 H* Preliminary micro results at discharge 03/05/22 08:36 Blood Culture - Preliminary Blood - Venous No growth after 48 hours. Discharge Plan Discharge Anticipated Discharge Date/Time: 03/09/22 13:39 Patient Disposition: Home Health Service Discharge Diagnosis: Acute hypoxic respiratory failure secondary to COPD exacerbation Hypercalcemia TESSA on CKD Anion gap metabolic acidosis Fall Referrals: Octavio RENEE [Outside] - 1 Day ([facility]) Discharge Medications: New losartan 50 mg Tablet 50 mg PO DAILY Qty: 30 0RF Protocol: Hold for SBP< HOLD for SBP < : 90 Continued clonazepam 1 mg Tablet 1 mg PO TID aspirin 81 mg Tablet,Delayed Release (Dr/Ec) 81 mg PO DAILY lisinopril 10 mg Tablet 10 mg PO DAILY omeprazole 20 mg Capsule,Delayed Release(Dr/Ec) 20 mg PO DAILY@0630 hydroxyzine pamoate 25 mg Capsule 25 mg PO BID PRN (Reason: Anxiety) doxepin [Silenor] 6 mg Tablet 6 mg PO BEDTIME insulin lispro 100 unit/mL Insulin Pen 14 unit SUBCUT TID acetaminophen 325 mg Tablet 650 mg PO QID PRN (Reason: Pain) lidocaine 5 % Adhesive Patch,Medicated 1 patch TOPICAL DAILY Rx Instructions: leave on most painful area for up to 12 hrs lamotrigine 100 mg Tablet 50 mg PO DAILY insulin glargine [Lantus Solostar U-100 Insulin] 100 unit/mL (3 mL) Insulin Pen 30 unit SUBCUT BEDTIME atorvastatin 80 mg tablet 40 mg PO BEDTIME carvedilol 3.125 mg tablet 3.125 mg PO BIDWM Rx Instructions: must administer with a meal/food furosemide 20 mg tablet 20 mg PO DAILY PRN (Reason: Weight Gain) Discharge Orders: Discharge Order (Routine); Ordered 03/09/22 Ordered By: Tea De Santiago Diet: Advance to usual diet Activity on Discharge: As tolerated Stand Alone Forms: Patient Portal Discharge page Care Plan Goals: Complete resolution of symptoms Health Concerns: Acute hypoxic respiratory failure secondary to COPD exacerbation Hypercalcemia TESSA on CKD Anion gap metabolic acidosis Fall Plan of Treatment: Follow-up with primary care provider as needed Take all medications as prescribed Assessment: See discharge summary
--- NOTE | 2022-03-09 14:50 | P.F2F_ITS ---
Service Date Service Date: 03/09/22 Encounter Date of encounter: 03/09/22 Reasons for Services Signs and symptoms assessed: COPD exacerbation Falls Reason for shelter: CV/CP assess and/or care Reason for physical therapy: home safety and mobility Homebound: Leaving the home is medically contraindicated at this time without the asist of a device and/or another person due th the listed conditions above and below. Reason homebound: unsteady gait / fall risk and poor balance / fall risk Certification: Based on the above findings, I certify that this patient is confined to the home and needs intermittent shelter care, physical therapy and/or speech therapy, or continues to need occupational therapy. The patient is under my care, and I have initiated the establishment of the plan of care. The patient will be followed by a physician who will periodically review the plan of care.
[2022-03-09 16:14] LABS: Glucose, Whole Blood 163 mg/dL (60-115)
== END 2022-03-09 18:09 | disposition home health service (06) | DRG 190 ==
LOC: HO.ED 15:14 → HO.EDOVER 15:39 → HO.S3 17:17
PROVIDERS: Internal Medicine Nephrology; Nurse Practitioner Family; Admitting Provider Nurse Practitioner Acute Care; Emergency Provider Emergency Medicine; PCP Internal Medicine; Visit Provider Nurse Practitioner Acute Care
DX: J44.1 Chronic obstructive pulmonary disease with (acute) exacerbation (principal); J96.01 Acute respiratory failure with hypoxia; E87.20 Acidosis, unspecified; N17.9 Acute kidney failure, unspecified; Z68.41 Body mass index [BMI] 40.0-44.9, adult; E66.01 Morbid (severe) obesity due to excess calories; I25.10 Atherosclerotic heart disease of native coronary artery without angina pectoris; I25.2 Old myocardial infarction; R29.6 Repeated falls; N31.9 Neuromuscular dysfunction of bladder, unspecified; I12.9 Hypertensive chronic kidney disease with stage 1 through stage 4 chronic kidney disease, or unspecified chronic kidney disease; E87.5 Hyperkalemia; F41.9 Anxiety disorder, unspecified; N18.30 Chronic kidney disease, stage 3 unspecified; F39 Unspecified mood [affective] disorder; E83.42 Hypomagnesemia; E11.22 Type 2 diabetes mellitus with diabetic chronic kidney disease; Z20.822 Contact with and (suspected) exposure to COVID-19; Z91.81 History of falling; Z88.8 Allergy status to other drugs, medicaments and biological substances; Z79.4 Long term (current) use of insulin; Z79.82 Long term (current) use of aspirin; Z79.899 Other long term (current) drug therapy
CPT/HCPCS: 36415; 70450; 71045; 71046; 71250; 72125; 73562; 80048; 80053; 80307; 81003; 82077; 82550; 82803; 82947; 83605; 83690; 83735; 83880; 84484; 85025; 85379; 87040; 87147; 87205; 87502; 87635; 93005; 94640; 97110; 97116; 97162; 99285; J0456; J0696; J2405; J2920; J3475

== ENCOUNTER 2022-03-17 10:09 | Emergency (ER) | payer OTHER, SELFPAY ==
--- NOTE | ~2022-03-17 | CT_ITS ---
EXAMINATION: CT CERVICAL SPINE WITHOUT CONTRAST CLINICAL INFORMATION: Fall. Neck pain. COMPARISON: None TECHNIQUE: 3 mm thin axial and reformatted 2 mm thin sagittal coronal reconstructions of cervical spine were obtained. This CT examination was performed using dose optimization techniques as appropriate, variously including the following: *Automated exposure control *Adjustment of mA and/or kV according to patient size (this includes techniques or standardized protocols for targeted exams where dose is matched to indication/reason for exam; i.e. extremities or head) *Use of iterative reconstruction technique DLP: 2252 mGy-cm FINDINGS: On sagittal reconstructed images is maintained cervical lordosis. The vertebral heights, alignment and disc heights are maintained normal. The craniovertebral junction and the C1-C2 alignment is preserved. There is no visible acute fracture, dislocation or subluxation seen. There is mild ventral spondylosis C6-C7 disc level. The prevertebral and the paravertebral soft tissues are normal. The airway is widely patent. Visualized bilateral parotid and submandibular glands are unremarkable. The thyroid lobes are symmetrical. The lung apices are clear CT/CT cervical spine wo IV con IMPRESSION: Mild ventral spondylosis C6-C7 disc level. Otherwise no visible acute fracture, dislocation or subluxation seen. Fleischner guidelines were followed.
--- NOTE | ~2022-03-17 | XR_ITS ---
EXAMINATION: XR HIP, LEFT CLINICAL INFORMATION: Left hip pain status post fall. COMPARISON: None TECHNIQUE: Two views of the left hip. FINDINGS: There is generalized osteopenia. Mild bilateral hip and pubic symphysis degenerative joint changes are seen. There is no acute fracture or dislocation. The soft tissues are unremarkable. Moderate atherosclerosis. Left carotid vascular stents. XR/XR hip LT w PEL1V IMPRESSION: Generalized osteopenia and mild bilateral hip osteoarthritis. No overt fracture.
--- NOTE | ~2022-03-17 | CT_ITS ---
EXAMINATION: CT HEAD WITHOUT CONTRAST CLINICAL INFORMATION: Status post fall with head strike. COMPARISON: Head CT scan dated 03/05/2022. TECHNIQUE: Contiguous axial imaging was performed from the skull base to vertex without intravenous administration of contrast. Coronal and sagittal reformatted images were obtained. This CT examination was performed using dose optimization techniques as appropriate, variously including the following: *Automated exposure control *Adjustment of mA and/or kV according to patient size (this includes techniques or standardized protocols for targeted exams where dose is matched to indication/reason for exam; i.e. extremities or head) *Use of iterative reconstruction technique DLP: 832.99 mGy-cm FINDINGS: There is mild widening of the cortical sulci and associated ventriculomegaly. The lateral ventricles are symmetrical. The third and fourth ventricles are in their normal midline position. The basilar and prepontine cisterns are unremarkable. There is no acute intra or extracerebral abnormality. There is no mass effect or midline shift. Sections through the bony calvarium are unremarkable. The orbits are intact. The paranasal sinuses show mild mucosal thickening in the maxillary sinuses bilaterally. Bilateral maxillary antrostomies are patent. The mastoid air cells are clear. CT/CT head/brain wo IV con IMPRESSION: No acute intracranial pathology.
--- NOTE | 2022-03-17 10:13 | ED.GENADULT ---
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 Patient states that he fell and when he was trying to get him, his left hip was bothering him. Patient states that he did hit his head but he denies any loss of conciseness. Patient denies any dizziness, lightheadedness, abdominal pain, nausea, vomiting, fever, chills, blurry vision, double vision, loss of vision, chest pain, difficulty breathing, shortness of breath, back pain, night sweats, pain with urination, increased urinary frequency, increased urinary urgency, blood in his urine or stool, syncope or a near syncopal episode, bowel incontinence, bladder incontinence, bowel retention, bladder retention, or any other complaints at this time. Onset (ago): hour(s) Location: left and lower extremity Radiation: non-radiation Severity: mild Severity scale (1-10): 3 Quality: dull Pain Consistency: constant Relieving factors: none Exacerbating factors: none Associated symptoms: denies other symptoms Treatments prior to arrival: none Related Data Home Medications Medication Instructions Recorded Confirmed aspirin 81 mg tablet,delayed 81 mg PO DAILY 04/04/21 03/05/22 release clonazepam 1 mg tablet 1 mg PO TID 04/04/21 03/05/22 doxepin 6 mg tablet (Silenor) 6 mg PO BEDTIME 04/04/21 03/05/22 hydroxyzine pamoate 25 mg capsule 25 mg PO BID PRN Anxiety 04/04/21 03/05/22 insulin lispro 100 unit/mL 14 unit subcut TID 04/04/21 03/05/22 subcutaneous pen lisinopril 10 mg tablet 10 mg PO DAILY 04/04/21 03/05/22 omeprazole 20 mg capsule,delayed 20 mg PO DAILY@0630 04/04/21 03/05/22 release acetaminophen 325 mg tablet 650 mg PO QID PRN Pain 03/05/22 03/05/22 atorvastatin 80 mg tablet 40 mg PO BEDTIME 03/05/22 03/05/22 carvedilol 3.125 mg tablet 3.125 mg PO BIDWM 03/05/22 03/05/22 furosemide 20 mg tablet 20 mg PO DAILY PRN Weight Gain 03/05/22 03/05/22 insulin glargine 100 unit/mL (3 30 unit subcut BEDTIME 03/05/22 03/05/22 mL) subcutaneous pen (Lantus Solostar U-100 Insulin) lamotrigine 100 mg tablet 50 mg PO DAILY 03/05/22 03/05/22 lidocaine 5 % topical patch 1 patch topical DAILY 03/05/22 03/05/22 Previous Rx's Medication Instructions Recorded losartan 50 mg tablet 50 mg PO DAILY #30 tabs 03/09/22 nicotine 21 mg/24 hr daily 1 patch transdermal DAILY #28 ea 03/17/22 transdermal patch Allergies Allergy/AdvReac Type Severity Reaction Status Date / Time quetiapine [From Seroquel] Allergy Mild LEG Verified 10/30/21 03:28 SWELLING onion [Onion] AdvReac Unknown NAUSEA & Verified 10/30/21 03:28 VOMITING PEPPERS AdvReac Mild NAUSEA & Uncoded 08/09/21 10:51 VOMITING Review of Systems Constitutional: Constitutional: Reports no additional constitutional complaints, Denies chills, Denies fever(s) and Denies night sweats Eyes: Eyes: Reports no additional eye complaints, Denies blurry vision, Denies change in vision, Denies diplopia, Denies eye discharge, Denies loss of vision and Denies eye pain ENT: Denies dizziness Cardiovascular: Cardiovascular: Reports no additional cardiovascular complaints, Denies chest pain, Denies lightheadedness, Denies Loss of Consciousness and Denies dyspnea Respiratory: Respiratory: Reports no additional respiratory complaints and Denies dyspnea Gastrointestinal: Gastrointestinal: Reports no additional gastrointestinal complaints, Denies abdominal pain, Denies melena, Denies hematochezia, Denies change in bowel habits and Denies change in stool character Genitourinary: Genitourinary: Reports no additional male genitourinary complaints, Denies hematuria, Denies oliguria, Denies difficulty urinating, Denies dysuria, Denies urinary frequency, Denies urinary hesitancy, Denies urinary incontinence and Denies urinary urgency Musculoskeletal: Musculoskeletal: Reports no additional musculoskeletal complaints, Denies numbness and Denies tingling Comments: left hip pain Neurologic: Denies dizziness, Denies loss of vision, Denies numbness and Denies tingling Psychiatric: Psychiatric: Reports no additional psychiatric complaints Endocrine: Endocrine: Reports no additional endocrine complaints Hematologic/Lymphatic: Hematologic/Lymphatic: Reports no additional hematologic/lymphatic complaints Allergic/Immunologic: Allergic/Immunologic: Reports no additional allergic/immunologic complaints PMFSH Past Medical History Attestation statement: The following information was validated with the patient. Source: old records reviewed Medical History Anxiety Cardiomyopathy Coronary artery disease 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 Nephrolithiasis Neurogenic bladder NSTEMI (non-ST elevated myocardial infarction) Prostate cancer Sleep apnea Surgical History History of cardiac cath S/P cardiac cath Family History Family History Father CAD (coronary artery disease) Pacemaker Social History Social History Household Members: Spouse Housing: House Do you presently have visiting nurse or other home services: No Alcohol intake: never Patient Tobacco Use Status: Current everyday Tobacco user Tobacco use type: Cigarette Cigarette Packs Per Day: 2.5 Cigarettes Per Day: 50.0 Smoked in Last 30 Days: Yes Second Hand Smoke Exposure: Yes Use of substances other than those prescribed or required for medical reasons: No Advance Directives: Yes Advance Directives on File: Yes Advance Directives Date on File: 04/12/21 service: Yes Current occupational status: disabled Physical Exam ED Vital Signs: Vital Signs - 24 hr 03/17/22 10:33 Temperature 98.0 F Pulse Rate 92 Respiratory Rate 20 Blood Pressure 154/78 H Pulse Oximetry 95 Oxygen Delivery Method Room Air BMI result Body Mass Index 40.4 Const General: cooperative, no acute distress, alert and awake Nutritional Appearance: well nourished Orientation/consciousness: patient oriented x3 Limitations: no limitations HENMT Head: Yes normal to inspection and Yes atraumatic Ears: hearing grossly normal bilaterally and external ears normal General nose exam: Normal external nose present, no nasal discharge noted and no epistaxis Face and sinus: Yes normal facial exam, No abrasion and No laceration Mouth: Normal oral and palatal mucosa present, no drooling and no muffled voice Eyes General: appearance normal, both eyes and all related structures Periorbital: periorbital findings normal Eyelids: Yes eyelids normal Conjunctivae: conjunctivae normal Pupils: Equal, round and reactive pupils present EOM: EOMs intact bilaterally Neck Neck: Yes normal visual inspection, Yes full ROM and Yes no lymphadenopathy Chest Chest palpation & inspection: normal inspection of the chest Resp Effort & Inspection: normal respiratory effort and able to speak in complete sentences Auscultation: clear to auscultation bilaterally Cardio Rate: regular rate Rhythm: regular rhythm GI Inspection: Yes normal to inspection Palpation (GI): Soft to palpation, not firm, nontender, no guarding and not rigid Neuro General: patient oriented x3 and moves all extremities Cranial nerves: Yes Equal, round and reactive pupils present Cognition (Neuro): normal cognition Motor exam (neuro): 5/5 motor strength present throughout Sensory Exam: Normal double simultaneous stimulation for sensation Coordination: [id number] test normal Extrem Other: all finger amputations to both hands Psych Appearance: grossly normal Mental Status: mental status grossly normal Affect: normal affect Attitude: cooperative Thought process: Normal thought process present Thought content: Normal thought content present Insight: Good insight present (Psych) Medical Decision Making MDM Narrative Medical decision making narrative: Patient is a 66 year old assigned male at with a history of DM presenting to the emergency department today with left hip pain. Patient's physical exam showed all finger amputations to bilateral hands. Patient's left hip x-ray, head CT, and C-Spine CT showed no acute process. I explained my physical exam findings as well as all test results to the patient and the patient's . I answered all questions asked by the patient and the patient's . I stressed the importance of the patient taking his medication as prescribed. I stressed the importance of the patient following up with his primary care provider. I stressed the importance of the patient returning to the emergency department immediately if his symptoms were to worsen or if he were to develop any dizziness, shortness of breath, difficulty breathing, chest pain, blurry vision, loss of vision, nausea, vomiting, abdominal pain, fever, chills, back pain, or any other complaints. Patient and the patient's verbalized agreement and understanding with this treatment plan and discharge. Medical Records Medical records reviewed: Yes I reviewed the patient's medical records. Imaging Data CT scan - head: Attestation: I personally reviewed and interpreted this imaging study as follows: My impression: No acute process. Radiologist's impression: EXAMINATION: CT HEAD WITHOUT CONTRAST CLINICAL INFORMATION: Status post fall with head strike.? COMPARISON: Head CT scan dated 03/05/2022. TECHNIQUE: Contiguous axial imaging was performed from the skull base to vertex without intravenous administration of contrast. Coronal and sagittal reformatted images were obtained. This CT examination was performed using dose optimization techniques as appropriate, variously including the following: *Automated exposure control *Adjustment of mA and/or kV according to patient size (this includes techniques or standardized protocols for targeted exams where dose is matched to indication/reason for exam; i.e. extremities or head) *Use of iterative reconstruction technique DLP: 832.99 mGy-cm FINDINGS: There is mild widening of the cortical sulci and associated ventriculomegaly. The lateral ventricles are symmetrical. The third and fourth ventricles are in their normal midline position. The basilar and prepontine cisterns are unremarkable. There is no acute intra or extracerebral abnormality. There is no mass effect or midline shift. Sections through the bony calvarium are unremarkable. The orbits are intact. The paranasal sinuses show mild mucosal thickening in the maxillary sinuses bilaterally. Bilateral maxillary antrostomies are patent. The mastoid air cells are clear. CT/CT head/brain wo IV con IMPRESSION: No acute intracranial pathology. ? Dictated By: Adrian Mills MD Signed By: Electronically signed by Adrian Mills MD 03/17/[address] C-Spine: Attestation: I personally reviewed and interpreted this imaging study as follows: My impression: No acute process. Radiologist's impression: EXAMINATION: CT CERVICAL SPINE WITHOUT CONTRAST CLINICAL INFORMATION: Fall. Neck pain.? COMPARISON: None? TECHNIQUE: 3 mm thin axial and reformatted 2 mm thin sagittal coronal reconstructions of cervical spine were obtained. This CT examination was performed using dose optimization techniques as appropriate, variously including the following: *Automated exposure control *Adjustment of mA and/or kV according to patient size (this includes techniques or standardized protocols for targeted exams where dose is matched to indication/reason for exam; i.e. extremities or head) *Use of iterative reconstruction technique DLP: 2252 mGy-cm FINDINGS: On sagittal reconstructed images is maintained cervical lordosis. The vertebral heights, alignment and disc heights are maintained normal. The craniovertebral junction and the C1-C2 alignment is preserved. There is no visible acute fracture, dislocation or subluxation seen. There is mild ventral spondylosis C6-C7 disc level. The prevertebral and the paravertebral soft tissues are normal. The airway is widely patent. Visualized bilateral parotid and submandibular glands are unremarkable. The thyroid lobes are symmetrical. The lung apices are clear? CT/CT cervical spine wo IV con IMPRESSION: Mild ventral spondylosis C6-C7 disc level. Otherwise no visible acute fracture, dislocation or subluxation seen. ? Fleischner guidelines were followed. Dictated By: Tate Harrington MD Signed By: Electronically signed by Tate Harrington MD 03/17/22 1409 Left hip x-ray: Attestation: I personally reviewed and interpreted this imaging study as follows: My impression: No acute process. Radiologist's impression: EXAMINATION: XR HIP, LEFT CLINICAL INFORMATION: Left hip pain status post fall. COMPARISON: None TECHNIQUE: Two views of the left hip. FINDINGS: There is generalized osteopenia. Mild bilateral hip and pubic symphysis degenerative joint changes are seen. There is no acute fracture or dislocation. The soft tissues are unremarkable. Moderate atherosclerosis. Left carotid vascular stents. XR/XR hip LT w PEL1V IMPRESSION: Generalized osteopenia and mild bilateral hip osteoarthritis. No overt fracture. Dictated By: Adrian Mills MD Signed By: Electronically signed by Adrian Mills MD 03/17/22 0186 Discharge Plan Discharge Clinical Impression: Fall Patient Disposition: Home, Self-Care Instructions: Fall Prevention for Older Adults (ED) Additional Instructions: Follow up with your primary care provider. Return to the emergency department immediately if your symptoms worsen or if you develop any dizziness, shortness of breath, difficulty breathing, chest pain, blurry vision, loss of vision, nausea, vomiting, abdominal pain, fever, chills, back pain, or any other complaints. Prescriptions: New nicotine 21 mg/24 hr patch 24 hour 1 patch transdermal DAILY Qty: 28 0RF No Action clonazepam 1 mg Tablet 1 mg PO TID aspirin 81 mg Tablet,Delayed Release (Dr/Ec) 81 mg PO DAILY lisinopril 10 mg Tablet 10 mg PO DAILY omeprazole 20 mg Capsule,Delayed Release(Dr/Ec) 20 mg PO DAILY@0630 hydroxyzine pamoate 25 mg Capsule 25 mg PO BID PRN (Reason: Anxiety) doxepin [Silenor] 6 mg Tablet 6 mg PO BEDTIME insulin lispro 100 unit/mL Insulin Pen 14 unit SUBCUT TID acetaminophen 325 mg Tablet 650 mg PO QID PRN (Reason: Pain) lidocaine 5 % Adhesive Patch,Medicated 1 patch TOPICAL DAILY Rx Instructions: leave on most painful area for up to 12 hrs lamotrigine 100 mg Tablet 50 mg PO DAILY insulin glargine [Lantus Solostar U-100 Insulin] 100 unit/mL (3 mL) Insulin Pen 30 unit SUBCUT BEDTIME atorvastatin 80 mg tablet 40 mg PO BEDTIME carvedilol 3.125 mg tablet 3.125 mg PO BIDWM Rx Instructions: must administer with a meal/food furosemide 20 mg tablet 20 mg PO DAILY PRN (Reason: Weight Gain) losartan 50 mg Tablet 50 mg PO DAILY Qty: 30 0RF Protocol: Hold for SBP< HOLD for SBP < : 90 Print Language: Citizen Of [place]
[2022-03-17 10:22] VITALS: BP 160/84; PULSE 90
[2022-03-17 10:33] VITALS: BP 154/78; PULSE 92; RESP 20; TEMP 36.7; O2SAT 95; BMI 40.4
== END 2022-03-17 14:45 | disposition home or self-care (01) ==
PROVIDERS: Emergency Provider Emergency Medicine Emergency Medical Services
DX: M25.552 Pain in left hip (principal); R29.6 Repeated falls; Z91.81 History of falling; E11.9 Type 2 diabetes mellitus without complications; F17.210 Nicotine dependence, cigarettes, uncomplicated; Z89.029 Acquired absence of unspecified finger(s); Z95.0 Presence of cardiac pacemaker; Z79.82 Long term (current) use of aspirin; Z79.4 Long term (current) use of insulin; Z79.02 Long term (current) use of antithrombotics/antiplatelets
CPT/HCPCS: 70450; 72125; 73502; 99284

== ENCOUNTER 2022-03-21 12:13 | Inpatient (IN) | payer OTHER, SELFPAY ==
--- NOTE | ~2022-03-21 | XR_ITS ---
EXAMINATION: XR CHEST CLINICAL INFORMATION: Weakness. COMPARISON: 03/08/[address] scan dated 03/05/2022. TECHNIQUE: Frontal view of the chest was obtained. FINDINGS: Mild linear markings are seen at the left lung base. The left upper lung field and right lung are clear. The heart and mediastinal structures are unremarkable. XR/XR chest 1V IMPRESSION: Mild left basilar linear atelectasis/scarring. No overt CHF or pneumonia.
--- NOTE | ~2022-03-21 | US_ITS ---
EXAMINATION: US VENOUS ULTRASOUND WITH DOPPLER LOWER EXTREMITY, BILATERAL CLINICAL INFORMATION: Pain and swelling COMPARISON: None TECHNIQUE: Ultrasound of the deep veins is performed from the hip to the calf with compression sonography and color and pulse Doppler assessment. Spectral analysis with color-flow imaging is performed. FINDINGS: RIGHT: There is normal venous compression and respiratory variation and augmented flow. The visualized common femoral vein, superficial femoral vein, profunda femoral vein, popliteal vein, and the trifurcation region shows no evidence of deep venous thrombosis. There is no significant popliteal fossa cyst. Right inguinal node 32 x 8 x 31 mm. LEFT: There is normal venous compression and respiratory variation and augmented flow. The visualized common femoral vein, superficial femoral vein, profunda femoral vein, popliteal vein, and the trifurcation region shows no evidence of deep venous thrombosis. There is no significant popliteal fossa cyst. Left inguinal node 26 x 11 x 30 mm. If the patient's symptoms persist, followup ultrasound in 5 days 7 days might be of value to exclude proximal propagation from a non-visualized calf vein. US/US venous duplex LE BI IMPRESSION: No DVT demonstrated in the right or left lower extremity.
[2022-03-21 12:17] VITALS: BP 150/77; BP 151/57; PULSE 94; PULSE 99; RESP 18; TEMP 36.7; O2SAT 92; O2SAT 95; BMI 40.1
--- NOTE | 2022-03-21 12:22 | ECG_ITS ---
Test Reason : Weakness Blood Pressure : / mmHG Vent. Rate : 096 BPM Atrial Rate : 096 BPM P-R Int : 210 ms QRS Dur : 136 ms QT Int : 378 ms P-R-T Axes : 051 049 044 degrees QTc Int : 477 ms Sinus rhythm with 1st degree A-V block Right bundle branch block Abnormal ECG When compared with ECG of 08-MAR-2022 10:33, Vent. rate has increased BY 43 BPM Referred By: Tracy Weathers Electronically Signed By:ABISAI YOUNG MD
--- NOTE | 2022-03-21 12:22 | ED.GENADULT ---
HPI - General Adult General Chief complaint: Weakness Stated complaint: WEAKNESS,INCR X'S MONTH,90% RA,95% 4LPM PER EMS Time Seen by Provider: 03/21/22 12:21 Source: patient, family () and EMS Mode of arrival: EMS Limitations: no limitations History of Present Illness HPI narrative: Patient is a 66 year old assigned male at with a history of DM, PTSD, COPD, and bilateral all finger amputations presenting to the emergency department today with worsening weakness. Patient states that he feels much more run down and feels generally unwell lately. Patient denies any dizziness, lightheadedness, abdominal pain, nausea, vomiting, fever, chills, blurry vision, double vision, loss of vision, chest pain, difficulty breathing, shortness of breath, back pain, night sweats, pain with urination, increased urinary frequency, increased urinary urgency, blood in his urine or stool, syncope or a near syncopal episode, recent trauma or falls, bowel incontinence, bladder incontinence, bowel retention, bladder retention, or any other complaints at this time. Patient states htat he is supposed to be on oxygen at home at all times but he hasn't been wearing it regularly for weeks. Onset (ago): day(s) Severity: moderate Severity scale (1-10): 5 Relieving factors: none Exacerbating factors: none Associated symptoms: weakness Treatments prior to arrival: none Related Data Home Medications Medication Instructions Recorded Confirmed aspirin 81 mg tablet,delayed 81 mg PO DAILY 04/04/21 03/05/22 release clonazepam 1 mg tablet 1 mg PO TID 04/04/21 03/05/22 doxepin 6 mg tablet (Silenor) 6 mg PO BEDTIME 04/04/21 03/05/22 hydroxyzine pamoate 25 mg capsule 25 mg PO BID PRN Anxiety 04/04/21 03/05/22 insulin lispro 100 unit/mL 14 unit subcut TID 04/04/21 03/05/22 subcutaneous pen lisinopril 10 mg tablet 10 mg PO DAILY 04/04/21 03/05/22 omeprazole 20 mg capsule,delayed 20 mg PO DAILY@0630 04/04/21 03/05/22 release acetaminophen 325 mg tablet 650 mg PO QID PRN Pain 03/05/22 03/05/22 atorvastatin 80 mg tablet 40 mg PO BEDTIME 03/05/22 03/05/22 carvedilol 3.125 mg tablet 3.125 mg PO BIDWM 03/05/22 03/05/22 furosemide 20 mg tablet 20 mg PO DAILY PRN Weight Gain 03/05/22 03/05/22 insulin glargine 100 unit/mL (3 30 unit subcut BEDTIME 03/05/22 03/05/22 mL) subcutaneous pen (Lantus Solostar U-100 Insulin) lamotrigine 100 mg tablet 50 mg PO DAILY 03/05/22 03/05/22 lidocaine 5 % topical patch 1 patch topical DAILY 03/05/22 03/05/22 Previous Rx's Medication Instructions Recorded losartan 50 mg tablet 50 mg PO DAILY #30 tabs 03/09/22 nicotine 21 mg/24 hr daily 1 patch transdermal DAILY #28 ea 03/17/22 transdermal patch Allergies Allergy/AdvReac Type Severity Reaction Status Date / Time quetiapine [From Seroquel] Allergy Mild LEG Verified 10/30/21 03:28 SWELLING onion [Onion] AdvReac Unknown NAUSEA & Verified 10/30/21 03:28 VOMITING PEPPERS AdvReac Mild NAUSEA & Uncoded 08/09/21 10:51 VOMITING Review of Systems Constitutional: Constitutional: Reports no additional constitutional complaints, Denies chills, Denies fever(s), Denies night sweats and Reports weakness Eyes: Eyes: Reports no additional eye complaints, Denies blurry vision, Denies change in vision, Denies diplopia, Denies eye discharge, Denies loss of vision and Denies eye pain ENT: Denies dizziness Cardiovascular: Cardiovascular: Reports no additional cardiovascular complaints, Denies chest pain, Denies lightheadedness, Denies Loss of Consciousness and Denies dyspnea Respiratory: Respiratory: Reports no additional respiratory complaints and Denies dyspnea Gastrointestinal: Gastrointestinal: Reports no additional gastrointestinal complaints, Denies abdominal pain, Denies melena, Denies hematochezia, Denies change in bowel habits and Denies change in stool character Genitourinary: Genitourinary: Reports no additional male genitourinary complaints, Denies hematuria, Denies oliguria, Denies difficulty urinating, Denies dysuria, Denies urinary frequency, Denies urinary hesitancy, Denies urinary incontinence and Denies urinary urgency Musculoskeletal: Musculoskeletal: Reports no additional musculoskeletal complaints, Denies numbness and Denies tingling Neurologic: Denies dizziness, Denies loss of vision, Denies numbness, Denies tingling and Reports weakness Psychiatric: Psychiatric: Reports no additional psychiatric complaints Endocrine: Endocrine: Reports no additional endocrine complaints Hematologic/Lymphatic: Hematologic/Lymphatic: Reports no additional hematologic/lymphatic complaints Allergic/Immunologic: Allergic/Immunologic: Reports no additional allergic/immunologic complaints PMFSH Past Medical History Attestation statement: The following information was validated with the patient. Source: old records reviewed Medical History Anxiety Cardiomyopathy Coronary artery disease 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 Nephrolithiasis Neurogenic bladder NSTEMI (non-ST elevated myocardial infarction) Prostate cancer Sleep apnea Surgical History History of cardiac cath S/P cardiac cath Family History Family History Father CAD (coronary artery disease) Pacemaker Social History Social History Household Members: Spouse Housing: House Do you presently have visiting nurse or other home services: No Alcohol intake: never Patient Tobacco Use Status: Current everyday Tobacco user Tobacco use type: Cigarette Cigarette Packs Per Day: 2.5 Cigarettes Per Day: 50.0 Second Hand Smoke Exposure: Yes Advance Directives: Yes Advance Directives on File: Yes Advance Directives Date on File: 04/12/21 service: Yes Current occupational status: disabled Physical Exam ED Vital Signs: Vital Signs - 24 hr 03/21/22 12:17 Temperature 98.0 F Pulse Rate 99 Respiratory Rate 18 Blood Pressure 151/57 H Pulse Oximetry 92 Oxygen Delivery Method Nasal Cannula BMI result Body Mass Index 40.1 Const General: cooperative, no acute distress, alert and awake Nutritional Appearance: well nourished Orientation/consciousness: patient oriented x3 Limitations: no limitations HENMT Head: Yes normal to inspection and Yes atraumatic Ears: hearing grossly normal bilaterally and external ears normal General nose exam: Normal external nose present, no nasal discharge noted and no epistaxis Face and sinus: Yes normal facial exam, No abrasion and No laceration Mouth: Normal oral and palatal mucosa present, no drooling and no muffled voice Eyes General: appearance normal, both eyes and all related structures Periorbital: periorbital findings normal Eyelids: Yes eyelids normal Conjunctivae: conjunctivae normal Pupils: Equal, round and reactive pupils present EOM: EOMs intact bilaterally Neck Neck: Yes normal visual inspection, Yes full ROM and Yes no lymphadenopathy Chest Chest palpation & inspection: normal inspection of the chest Resp Other: patient is on 2LPM of oxygen at baseline Effort & Inspection: normal respiratory effort and able to speak in complete sentences Auscultation: clear to auscultation bilaterally GI Inspection: Yes normal to inspection Skin Other: bilateral lower leg warmth, swelling, and erythema Neuro General: patient oriented x3 and moves all extremities Cranial nerves: Yes Equal, round and reactive pupils present Cognition (Neuro): normal cognition Motor exam (neuro): 5/5 motor strength present throughout Sensory Exam: Normal double simultaneous stimulation for sensation Coordination: [id number] test normal Extrem Other: patient has bilateral all digit amputations General: Yes capillary refill normal Psych Appearance: grossly normal Mental Status: mental status grossly normal Affect: normal affect Attitude: cooperative Thought process: Normal thought process present Thought content: Normal thought content present Insight: Good insight present (Psych) Medications Administered Discontinued Medications Generic Name Dose Route Start Last Admin Trade Name Freq PRN Reason Stop Dose Admin Ceftriaxone Sodium 1 gm/ 50 mls @ 100 mls/hr 03/21/22 12:44 03/21/22 13:51 Sodium Chloride IV 03/21/22 13:13 Infused ONCE ONE Infusion Magnesium Sulfate 2 gm in 50 mls @ 25 mls/hr 03/21/22 15:51 03/21/22 16:05 Magnesium Sulfate/H2o IV 03/21/22 17:50 25 mls/hr ONCE ONE Administration Medical Decision Making [facility] Narrative Medical decision making narrative: Patient is a 66 year old assigned male at with a history of DM, COPD, PTSD, and bilateral all finger amputations presenting to the emergency department today with increased weakness. Patient's physical exam showed a weak individual with bilateral lower leg erythema, swelling, and warmth. Patient's blood work showed a decreased magnesium but was otherwise unremarkable. Patient's urine showed no acute process. Patient's EKG was unremarkable. Patient's chest x-ray and bilateral lower leg US showed no acute process. Patient's clinical presentation is most consistent with bilateral lower leg cellulitis. Patient's clinical presentation is not consistent with sepsis. I spoke to the hospitalist team who agreed to admission. I explained my physical exam findings as well as all test results to the patient and the patient's . I answered all questions asked by the patient. Patient and the patient's verbalized agreement and understanding with this treatment plan and admission. Medical Records Medical records reviewed: Yes I reviewed the patient's medical records. Lab Data Lab results reviewed: Yes I reviewed the patient's lab results. Result diagrams: 03/21/22 13:06 03/21/22 15:15 Labs: Lab Results 03/21/22 03/21/22 03/21/22 Range/Units 13:05 13:05 13:06 WBC 8.4 (4.8-10.8) X10*3/uL RBC 4.24 L (4.60-5.80) X10*6/uL Hgb 12.9 L (14.0-18.0) g/dl Hct 43.8 (42.0-52.0) % MCV 103.3 H (80.0-98.0) fL MCH 30.4 (27.0-33.0) pg MCHC 29.5 L (31.0-36.0) g/dl RDW 13.2 (11.0-16.0) % Plt Count 123 L (160-400) X10*3/uL MPV 10.4 (9.4-12.4) fL Immature Gran % (Auto) 0.4 (0.0-0.4) % Neut % (Auto) 76.0 H (45-73) % Lymph % (Auto) 14.0 L (20-40) % Isabella % (Auto) 7.7 (2-11) % Eos % (Auto) 1.8 (0-4) % Baso % (Auto) 0.1 (0-2) % Lymph # (Auto) 1.2 (1.2-4.9) X10*3/uL Isabella # (Auto) 0.7 (0.1-1.2) X10*3/uL Eos # (Auto) 0.2 (0.0-0.4) X10*3/uL Baso # (Auto) 0.0 (0.0-0.2) X10*3/uL Abs Immat Gran (auto) 0.03 (0.00-0.03) X10*3/uL Absolute Neuts (auto) 6.4 (2.0-8.3) x10*3/uL Absolute Nucleated RBC 0.000 (0.0-0.012) X10*3/uL Nucleated RBC % (auto) 0.0 (0.0-0.2) /100WBC VBG pH (7.32-7.43) VBG pCO2 mmHg VBG pO2 mmHg VBG HCO3 (22-26) mmol/L VBG O2 Saturation % VBG Base Excess mmol/L Sodium (135-145) mmol/L Potassium (3.3-5.1) mmol/L Chloride (96-108) mmol/L Carbon Dioxide (22-29) mmol/L Anion Gap (12-20) BUN (9-16) mg/dL Creatinine (0.5-1.4) mg/dL Estim Creat Clear Calc Estimated GFR Random Glucose (60-115) mg/dL Lactic Acid (0.5-2.0) mmol/L Calcium (8.4-10.2) mg/dL Magnesium (1.6-2.6) mg/dL Total Bilirubin (0.0-1.0) mg/dL AST (5-37) U/L ALT (0-40) U/L Alkaline Phosphatase (39-117) U/L Troponin I High Sens 5.9 (<3.5-35.0) ng/L C-Reactive Protein (< or = 0.50) mg/dL B-Natriuretic Peptide 55 (<100) pg/mL Total Protein (6.5-8.0) g/dL Albumin (3.5-5.0) g/dL Procalcitonin ng/mL Urine Color Urine Appearance Urine pH (5.0-9.0) Ur Specific [place] (1.005-1.025) Urine Protein (Neg-Trace) mg/dL Urine Glucose (UA) (Negative) mg/dL Urine Ketones (Negative) mg/dL Urine Blood (Negative) Urine Nitrite (Negative) Ur Leukocyte Esterase (Negative) Influenza Type A (PCR) (Negative) Influenza Type B (PCR) (Negative) RSV RNA Qual (PCR) (Negative) SARS-CoV-2 RNA (RT-PCR) (Negative) 03/21/22 03/21/22 03/21/22 Range/Units 13:13 13:25 14:40 WBC (4.8-10.8) X10*3/uL RBC (4.60-5.80) X10*6/uL Hgb (14.0-18.0) g/dl Hct (42.0-52.0) % MCV (80.0-98.0) fL MCH (27.0-33.0) pg MCHC (31.0-36.0) g/dl RDW (11.0-16.0) % Plt Count (160-400) X10*3/uL MPV (9.4-12.4) fL Immature Gran % (Auto) (0.0-0.4) % Neut % (Auto) (45-73) % Lymph % (Auto) (20-40) % Isabella % (Auto) (2-11) % Eos % (Auto) (0-4) % Baso % (Auto) (0-2) % Lymph # (Auto) (1.2-4.9) X10*3/uL Isabella # (Auto) (0.1-1.2) X10*3/uL Eos # (Auto) (0.0-0.4) X10*3/uL Baso # (Auto) (0.0-0.2) X10*3/uL Abs Immat Gran (auto) (0.00-0.03) X10*3/uL Absolute Neuts (auto) (2.0-8.3) x10*3/uL Absolute Nucleated RBC (0.0-0.012) X10*3/uL Nucleated RBC % (auto) (0.0-0.2) /100WBC VBG pH 7.40 (7.32-7.43) VBG pCO2 47 mmHg VBG pO2 88 mmHg VBG HCO3 29 H (22-26) mmol/L VBG O2 Saturation 99.0 % VBG Base Excess 3.9 mmol/L Sodium (135-145) mmol/L Potassium (3.3-5.1) mmol/L Chloride (96-108) mmol/L Carbon Dioxide (22-29) mmol/L Anion Gap (12-20) BUN (9-16) mg/dL Creatinine (0.5-1.4) mg/dL Estim Creat Clear Calc Estimated GFR Random Glucose (60-115) mg/dL Lactic Acid 1.0 (0.5-2.0) mmol/L Calcium (8.4-10.2) mg/dL Magnesium (1.6-2.6) mg/dL Total Bilirubin (0.0-1.0) mg/dL AST (5-37) U/L ALT (0-40) U/L Alkaline Phosphatase (39-117) U/L Troponin I High Sens (<3.5-35.0) ng/L C-Reactive Protein (< or = 0.50) mg/dL B-Natriuretic Peptide (<100) pg/mL Total Protein (6.5-8.0) g/dL Albumin (3.5-5.0) g/dL Procalcitonin ng/mL Urine Color Urine Appearance Urine pH (5.0-9.0) Ur Specific [place] (1.005-1.025) Urine Protein (Neg-Trace) mg/dL Urine Glucose (UA) (Negative) mg/dL Urine Ketones (Negative) mg/dL Urine Blood (Negative) Urine Nitrite (Negative) Ur Leukocyte Esterase (Negative) Influenza Type A (PCR) NEGATIVE (Negative) Influenza Type B (PCR) NEGATIVE (Negative) RSV RNA Qual (PCR) NEGATIVE (Negative) SARS-CoV-2 RNA (RT-PCR) NEGATIVE (Negative) 03/21/22 03/21/22 03/21/22 Range/Units 15:15 15:15 16:17 WBC (4.8-10.8) X10*3/uL RBC (4.60-5.80) X10*6/uL Hgb (14.0-18.0) g/dl Hct (42.0-52.0) % MCV (80.0-98.0) fL MCH (27.0-33.0) pg MCHC (31.0-36.0) g/dl RDW (11.0-16.0) % Plt Count (160-400) X10*3/uL MPV (9.4-12.4) fL Immature Gran % (Auto) (0.0-0.4) % Neut % (Auto) (45-73) % Lymph % (Auto) (20-40) % Isabella % (Auto) (2-11) % Eos % (Auto) (0-4) % Baso % (Auto) (0-2) % Lymph # (Auto) (1.2-4.9) X10*3/uL Isabella # (Auto) (0.1-1.2) X10*3/uL Eos # (Auto) (0.0-0.4) X10*3/uL Baso # (Auto) (0.0-0.2) X10*3/uL Abs Immat Gran (auto) (0.00-0.03) X10*3/uL Absolute Neuts (auto) (2.0-8.3) x10*3/uL Absolute Nucleated RBC (0.0-0.012) X10*3/uL Nucleated RBC % (auto) (0.0-0.2) /100WBC VBG pH (7.32-7.43) VBG pCO2 mmHg VBG pO2 mmHg VBG HCO3 (22-26) mmol/L VBG O2 Saturation % VBG Base Excess mmol/L Sodium 145 (135-145) mmol/L Potassium 4.8 (3.3-5.1) mmol/L Chloride 108 (96-108) mmol/L Carbon Dioxide 27 (22-29) mmol/L Anion Gap 15 (12-20) BUN 19 H (9-16) mg/dL Creatinine 1.44 H (0.5-1.4) mg/dL Estim Creat Clear Calc 65.7 Estimated GFR 49 Random Glucose 86 D (60-115) mg/dL Lactic Acid (0.5-2.0) mmol/L Calcium 8.3 L D (8.4-10.2) mg/dL Magnesium 1.2 L* (1.6-2.6) mg/dL Total Bilirubin 0.2 (0.0-1.0) mg/dL AST 18 (5-37) U/L ALT 18 (0-40) U/L Alkaline Phosphatase 115 (39-117) U/L Troponin I High Sens (<3.5-35.0) ng/L C-Reactive Protein 2.82 H (< or = 0.50) mg/dL B-Natriuretic Peptide (<100) pg/mL Total Protein 5.5 L (6.5-8.0) g/dL Albumin 3.2 L (3.5-5.0) g/dL Procalcitonin 0.08 ng/mL Urine Color Yellow Urine Appearance Clear Urine pH 5.5 (5.0-9.0) Ur Specific [place] 1.015 (1.005-1.025) Urine Protein Negative (Neg-Trace) mg/dL Urine Glucose (UA) 250 H (Negative) mg/dL Urine Ketones Negative (Negative) mg/dL Urine Blood Negative (Negative) Urine Nitrite Negative (Negative) Ur Leukocyte Esterase Negative (Negative) Influenza Type A (PCR) (Negative) Influenza Type B (PCR) (Negative) RSV RNA Qual (PCR) (Negative) SARS-CoV-2 RNA (RT-PCR) (Negative) Imaging Data Chest x-ray: Attestation: I personally reviewed and interpreted this imaging study as follows: My impression: No acute process. Radiologist's impression: EXAMINATION: XR CHEST CLINICAL INFORMATION: Weakness. COMPARISON: 03/08/[address] scan dated 03/05/2022. TECHNIQUE: Frontal view of the chest was obtained. FINDINGS: Mild linear markings are seen at the left lung base. The left upper lung field and right lung are clear. The heart and mediastinal structures are unremarkable. XR/XR chest 1V IMPRESSION: Mild left basilar linear atelectasis/scarring. No overt CHF or pneumonia. Dictated By: Adrian Mills MD Signed By: Electronically signed by Adrian Mills MD 03/21/22 1521 Venous US: Attestation: I personally reviewed and interpreted this imaging study as follows: My impression: No acute process. Radiologist's impression: EXAMINATION:? US VENOUS ULTRASOUND WITH DOPPLER LOWER EXTREMITY, BILATERAL CLINICAL INFORMATION:? Pain and swelling COMPARISON:? None TECHNIQUE: Ultrasound of the deep veins is performed from the hip to the calf with compression sonography and color and pulse Doppler assessment. Spectral analysis with color-flow imaging is performed. FINDINGS: RIGHT: There is normal venous compression and respiratory variation and augmented flow. The visualized common femoral vein, superficial femoral vein, profunda femoral vein, popliteal vein, and the trifurcation region shows no evidence of deep venous thrombosis. ? There is no significant popliteal fossa cyst. Right inguinal node 32 x 8 x 31 mm. LEFT: There is normal venous compression and respiratory variation and augmented flow. The visualized common femoral vein, superficial femoral vein, profunda femoral vein, popliteal vein, and the trifurcation region shows no evidence of deep venous thrombosis. ? There is no significant popliteal fossa cyst. Left inguinal node 26 x 11 x 30 mm. If the patient's symptoms persist, followup ultrasound in 5 days 7 days might be of value to exclude proximal propagation from a non-visualized calf vein. US/US venous duplex LE BI IMPRESSION: No DVT demonstrated in the right or left lower extremity. Dictated By: Tre Pereira MD Signed By: Electronically signed by Tre Pereira MD 03/21/22 143 ECG Data Attestation: I personally reviewed and interpreted this ECG as follows: Prior ECG tracings: available for review Interpretation: Vent. Rate: 096 BPM ? ? Atrial Rate: 096 BPM P-R Int: 210 ms? QRS Dur: 136 ms QT Int: 378 ms ? ? ? P-R-T Axes: 051 049 044 degrees QTc Int: 477 ms ? Sinus rhythm with 1st degree A-V block Right bundle branch block Possible Inferior infarct (cited on or before 21-MAR-2022) Abnormal ECG When compared with ECG of 08-MAR-2022 10:33, Vent. rate has increased BY? 43 BPM ? DD/ [id number] Critical Care Time Critical Care Time Critical Care Time: Yes Total Critical Care Time: 30 Attestation: I spent 30 minutes of Critical Care Time with this patient. This does not include time spent on separately reported billable procedures. Discharge Plan Discharge Clinical Impression: Cellulitis, Hypomagnesemia Patient Disposition: Admitted As Inpatient
--- NOTE | 2022-03-21 12:55 | PC.NURSE ---
Addendum entered by Anabell Hare 03/21/22 14:53: IV established. Significant other at bedside. Original Note: Pt reports increase weakness and BLE pain, not able to bare weight. PT AxO to self and year. BLE red, swollen, warm to touch, +2 edema observed.
[2022-03-21 13:13] LABS: MANUAL DIFF FLAG NO
[2022-03-21 13:17] LABS: Venous Blood Gas Refer to POC result
[2022-03-21 13:18] LABS: VBG Base Excess 3.9 mmol/L; VBG HCO3 29 mmol/L (22-26); VBG pCO2 47 mmHg; VBG pO2 88 mmHg
[2022-03-21 13:19] LABS: Basophils Percent Auto 0.1 % (0-2); Eosinophils Absolute Auto 0.2 X10*3/uL (0.0-0.4); Eosinophils Percent Auto 1.8 % (0-4); Hematocrit 43.8 % (42.0-52.0); Hemoglobin 12.9 g/dl (14.0-18.0); Imm Gran Abs Auto 0.03 X10*3/uL (0.00-0.03); Imm Gran Pct Auto 0.4 % (0.0-0.4); Lymphocytes Absolute Auto 1.2 X10*3/uL (1.2-4.9); Mean Corpuscular HGB Conc 29.5 g/dl (31.0-36.0); Mean Corpuscular Hemoglobin 30.4 pg (27.0-33.0); Mean Corpuscular Volume 103.3 fL (80.0-98.0); Mean Platelet Volume 10.4 fL (9.4-12.4); Monocytes Absolute Auto 0.7 X10*3/uL (0.1-1.2); Monocytes Percent Auto 7.7 % (2-11); Neutrophils Absolute Auto 6.4 x10*3/uL (2.0-8.3); Platelet Count 123 X10*3/uL (160-400); Red Blood Count 4.24 X10*6/uL (4.60-5.80); Red Cell Distribution Width 13.2 % (11.0-16.0); White Blood Count 8.4 X10*3/uL (4.8-10.8)
[2022-03-21] MEDS: cefTRIAXone sodium 1 GM in 0.9 % Sodium Chloride 50 ML IV (13:19)
[2022-03-21 13:37] LABS: Troponin-I High Sensitivity 5.9 ng/L (<3.5-35.0)
[2022-03-21 14:30] LABS: Influenza A PCR NEGATIVE (Negative); Influenza B PCR NEGATIVE (Negative); Resp Syncy Virus RNA Qual PCR NEGATIVE (Negative); SARS COV2 PCR INHOUSE NEGATIVE (Negative)
[2022-03-21 14:44] LABS: B Type Natriuretic Peptide 55 pg/mL (<100)
[2022-03-21 15:46] LABS: Alanine Aminotransferase 18 U/L (0-40); Albumin Level 3.2 g/dL (3.5-5.0); Alkaline Phosphatase 115 U/L (39-117); Anion Gap 15 (12-20); Aspartate Amino Transferase 18 U/L (5-37); Bilirubin Total 0.2 mg/dL (0.0-1.0); Blood Urea Nitrogen 19 mg/dL (9-16); Calcium 8.3 mg/dL (8.4-10.2); Carbon Dioxide 27 mmol/L (22-29); Chloride 108 mmol/L (96-108); Creatinine Clr Calc Pharmacy 65.7; Estimated Glomerular Filt Rate 49; Glucose Random 86 mg/dL (60-115); Magnesium 1.2 mg/dL (1.6-2.6); Potassium 4.8 mmol/L (3.3-5.1); Sodium 145 mmol/L (135-145); Total Protein 5.5 g/dL (6.5-8.0)
[2022-03-21] MEDS: Magnesium Sulfate/H2O 2 GM/50 ML PIGGYBACK IV (16:05)
[2022-03-21 16:22] LABS: Appearance Urine Clear; Color Urine Yellow; Glucose Urine UA 250 mg/dL (Negative); Leukocyte Esterase Urine Negative (Negative); Nitrite Urine Negative (Negative); PH 5.5 (5.0-9.0); Specific Gravity - Urine 1.015 (1.005-1.025); Urine Blood Negative (Negative); Urine Ketones Negative (Negative); Urine Protein Negative (Neg-Trace)
[2022-03-21 16:59] VITALS: BP 166/72; PULSE 97; O2SAT 93
--- NOTE | 2022-03-21 17:00 | P.HPHOSP_ITS ---
History of Present Illness Date of Service: 03/21/22 Chief Complaint: weakness, leg infection 66yo M with DM2, CAD, HFrEF, obesity, HTN, CKD3, COPD on 1L home O2, and PTSD who was just admitted here 03/05-03/09/22 for COPD exacerbation and hypomagnesemia. He came to the ED on 03/17/22 after multiple falls. No fracture or intracranial bleed. Over the last 3 days, he's become increasingly weak and his legs have become bright red, swollen, and painful. He complains of generalized malaise. No drainage of pus or fluid. No fever or chills. No dyspnea, wheeze, or cough. In the ED, he was noted to have low magnesium of 1.2. He was mildly hypoxic with SaO2 of 88-89% on 2L O2. He was given IV mag nesium and IV ceftriaxone. Review of Systems Review of Systems: Yes all other systems are reviewed and are negative [facility] Medical History Anxiety Cardiomyopathy Coronary artery disease 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 Nephrolithiasis Neurogenic bladder NSTEMI (non-ST elevated myocardial infarction) Prostate cancer Sleep apnea Family History Father CAD (coronary artery disease) Pacemaker Surgical History History of cardiac cath S/P cardiac cath Social History Household Members: Spouse Housing: House Do you presently have visiting nurse or other home services: No Alcohol intake: never Patient Tobacco Use Status: Current everyday Tobacco user Tobacco use type: Cigarette Cigarette Packs Per Day: 2.5 Cigarettes Per Day: 50.0 Second Hand Smoke Exposure: Yes Advance Directives: Yes Advance Directives on File: Yes Advance Directives Date on File: 04/12/21 service: Yes Current occupational status: disabled Meds Allergies Allergy/AdvReac Type Severity Reaction Status Date / Time quetiapine [From Seroquel] Allergy Mild LEG Verified 10/30/21 03:28 SWELLING onion [Onion] AdvReac Unknown NAUSEA & Verified 10/30/21 03:28 VOMITING PEPPERS AdvReac Mild NAUSEA & Uncoded 08/09/21 10:51 VOMITING Active Medications: Current Medications Dextrose (Dextrose 50 % 25 Gm/50 Ml Syringe) 25 gm IVPUSH Q15M PRN; Protocol PRN Reason: per Hypoglycemia Standing Ord. Glucose (Glucose Gel 15 Gm Gel..Gram.) 15 gm PO Q15M PRN; Protocol PRN Reason: per Hypoglycemia Standing Ord. Magnesium Sulfate (Magnesium Sulfate/H2o) 2 gm in 50 mls @ 25 mls/hr IV ONCE ONE Stop: 03/21/22 17:50 Last Admin: 03/21/22 16:05 Dose: 25 mls/hr Insulin Human Lispro (Insulin Lispro 100 Unit/Ml 3 Ml Vial) 0 unit SUBCUT QIDACHS [facility]; Protocol Pharmacy Consult (Consult Rx Perform Med Rec) 1 each MISCELLANE ONCE PRN PRN Reason: Consult order Pharmacy Consult (Consult Rx Perform Med Rec) 1 each MISCELLANE STAT STA Stop: 03/21/22 16:26 Pharmacy Consult (Consult Rx Vancomycin Dosing) 1 each MISCELLANE DAILY [facility] Home Medications Medication Instructions Recorded Confirmed Last Taken Type aspirin 81 mg tablet,delayed 81 mg PO DAILY 04/04/21 03/21/22 03/21/22 History release clonazepam 1 mg tablet 1 mg PO TID 04/04/21 03/21/22 03/21/22 History hydroxyzine pamoate 25 mg capsule 25 mg PO BID 04/04/21 03/21/22 03/21/22 His tory insulin lispro 100 unit/mL 14 unit subcut TIDAC 04/04/21 03/21/22 03/21/22 History subcutaneous pen lisinopril 10 mg tablet 10 mg PO DAILY 04/04/21 03/21/22 03/21/22 History omeprazole 20 mg capsule,delayed 20 mg PO DAILY@0630 04/04/21 03/21/22 03/21/22 History release acetaminophen 325 mg tablet 650 mg PO QID PRN Pain 03/05/22 03/21/22 Unknown History atorvastatin 80 mg tablet 40 mg PO BEDTIME 03/05/22 03/21/22 03/20/22 History carvedilol 3.125 mg tablet 3.125 mg PO BIDWM 03/05/22 03/21/22 03/21/22 History furosemide 20 mg tablet 20 mg PO DAILY 03/05/22 03/21/22 03/21/22 History insulin glargine 100 unit/mL (3 30 unit subcut BEDTIME 03/05/22 03/21/22 2 History mL) subcutaneous pen (Lantus Solostar U-100 Insulin) lamotrigine 100 mg tablet 50 mg PO DAILY 03/05/22 03/21/22 03/21/22 History lidocaine 5 % topical patch 1 patch topical DAILY 03/05/22 03/21/22 03/21/22 History cholecalciferol (vitamin D3) 25 25 mcg PO DAILY 03/21/22 03/21/22 03/21/22 History mcg (1,000 unit) tablet docusate sodium 100 mg capsule 100 mg PO BID PRN Constipation 03/21/22 03/21/22 Unknown History empagliflozin 25 mg tablet 25 mg PO DAILY 03/21/22 03/21/22 03/21/22 History magnesium 250 mg tablet 500 mg PO DAILY 03/21/22 03/21/22 03/21/22 History multivitamin 1 tab PO DAILY 03/21/22 03/21/22 03/21/22 History olanzapine 15 mg tablet 30 mg PO BEDTIME 03/21/22 03/21/22 03/20/22 History venlafaxine 37.5 mg 37.5 mg PO DAILY 03/21/22 03/21/22 03/21/22 History tablet,extended release 24 hr Physical Exam Vital Signs and Narrative: Vital Signs: Last Vital Signs Temp 98.0 F 03/21/22 12:17 Pulse 99 03/21/22 12:17 Resp 18 03/21/22 12:17 BP 151/57 H 03/21/22 12:17 Pulse Ox 92 03/21/22 12:17 O2 Del Method 03/21/22 12:17 Oxygen Flow Rate 4 03/21/22 12:17 BMI result Body Mass Index 40.1 Gen: in no acute distress but chronically ill- and weak-apearing HEENT: sclera anicteric, moist mucus membranes Neck: supple Lungs: clear to auscultation bilaterally Heart: regular rate and rhythm, no murmurs Abd: soft, non-tender, non-distended, morbid obesity Ext: bilateral leg edema Skin: extensive well-demarcated bright erythema of bilateral legs, warm to touch; no fluctuant areas Neuro: alert and oriented x3, no focal findings Psych: appropriate affect Results Labs CBC and Chem 7: 03/21/22 13:06 03/21/22 15:15 Labs: Laboratory Results - last 24 hr 03/21/22 03/21/22 03/21/22 13:05 13:05 13:06 MCV 103.3 H MCH 30.4 MCHC 29.5 L RDW 13.2 Plt Count 123 L MPV 10.4 Immature Gran % (Auto) 0.4 Neut % (Auto) 76.0 H Lymph % (Auto) 14.0 L Ray % (Auto) 7.7 Eos % (Auto) 1.8 Baso % (Auto) 0.1 Lymph # (Auto) 1.2 Ray # (Auto) 0.7 Eos # (Auto) 0.2 Baso # (Auto) 0.0 Abs Immat Gran (auto) 0.03 Absolute Neuts (auto) 6.4 Absolute Nucleated RBC 0.000 Nucleated RBC % (auto) 0.0 VBG pH VBG pCO2 VBG pO2 VBG HCO3 VBG O2 Saturation VBG Base Excess Anion Gap Estim Creat Clear Calc Estimated GFR Random Glucose Lactic Acid Calcium Magnesium Total Bilirubin AST ALT Alkaline Phosphatase Troponin I High Sens 5.9 B-Natriuretic Peptide 55 Total Protein Albumin Urine Color Urine Appearance Urine pH Ur Specific [place] Urine Protein Urine Glucose (UA) Urine Ketones Urine Blood Urine Nitrite Ur Leukocyte Esterase Influenza Type A (PCR) Influenza Type B (PCR) RSV RNA Qual (PCR) SARS-CoV-2 RNA (RT-PCR) 03/21/22 03/21/22 03/21/22 13:13 13:25 14:40 MCV MCH MCHC RDW Plt Count MPV Immature Gran % (Auto) Neut % (Auto) Lymph % (Auto) Ray % (Auto) Eos % (Auto) Baso % (Auto) Lymph # (Auto) Ray # (Auto) Eos # (Auto) Baso # (Auto) Abs Immat Gran (auto) Absolute Neuts (auto) Absolute Nucleated RBC Nucleated RBC % (auto) VBG pH 7.40 VBG pCO2 47 VBG pO2 88 VBG HCO3 29 H VBG O2 Saturation 99.0 VBG Base Excess 3.9 Anion Gap Estim Creat Clear Calc Estimated GFR Random Glucose Lactic Acid 1.0 Calcium Magnesium Total Bilirubin AST ALT Alkaline Phosphatase Troponin I High Sens B-Natriuretic Peptide Total Protein Albumin Urine Color Urine Appearance Urine pH Ur Specific [place] Urine Protein Urine Glucose (UA) Urine Ketones Urine Blood Urine Nitrite Ur Leukocyte Esterase Influenza Type A (PCR) NEGATIVE Influenza Type B (PCR) NEGATIVE RSV RNA Qual (PCR) NEGATIVE SARS-CoV-2 RNA (RT-PCR) NEGATIVE 03/21/22 03/21/22 15:15 16:17 MCV MCH MCHC RDW Plt Count MPV Immature Gran % (Auto) Neut % (Auto) Lymph % (Auto) Ray % (Auto) Eos % (Auto) Baso % (Auto) Lymph # (Auto) Ray # (Auto) Eos # (Auto) Baso # (Auto) Abs Immat Gran (auto) Absolute Neuts (auto) Absolute Nucleated RBC Nucleated RBC % (auto) VBG pH VBG pCO2 VBG pO2 VBG HCO3 VBG O2 Saturation VBG Base Excess Anion Gap 15 Estim Creat Clear Calc 65.7 Estimated GFR 49 Random Glucose 86 D Lactic Acid Calcium 8.3 L D Magnesium 1.2 L* Total Bilirubin 0.2 AST 18 ALT 18 Alkaline Phosphatase 115 Troponin I High Sens B-Natriuretic Peptide Total Protein 5.5 L Albumin 3.2 L Urine Color Yellow Urine Appearance Clear Urine pH 5.5 Ur Specific [place] 1.015 Urine Protein Negative Urine Glucose (UA) 250 H Urine Ketones Negative Urine Blood Negative Urine Nitrite Negative Ur Leukocyte Esterase Negative Influenza Type A (PCR) Influenza Type B (PCR) RSV RNA Qual (PCR) SARS-CoV-2 RNA (RT-PCR) Imaging Radiologist's Impressions: Impressions Venous Duplex 03/21/22 13:40 IMPRESSION: No DVT demonstrated in the right or left lower extremity. Chest X-Ray 03/21/22 14:45 IMPRESSION: Mild left basilar linear atelectasis/scarring. No overt CHF or pneumonia. Assessment and Plan (1) Cellulitis: Status: Acute (2) Hypomagnesemia: Status: Acute Plan 66yo M with DM2, CAD, HFrEF, obesity, HTN, CKD3, COPD on 1L home O2, and PTSD who was just admitted here for COPD exacerbation and hypomagnesemia and more recently seen in the ED after multiple falls. Presenting with 3 days of worsening redness, swelling, and pain of his legs concerning for cellulitis. Also noted to have hypomagnesemia. # cellulitis/erysipelas - admit to M/S on observation status, follow BCx, give IV vancomycin, elevate legs # hypoMg - replete, recheck level in AM # chronic hypoxic resp failure - supplemental O2 # CAD # HTN # chronic HFrEF - not decompensated/acute. continue home meds including ASA, atorvastatin, carvedilol, lisinopril, furosemide # COPD - prn nebs # DM2 - basal/bolus insulin # mood disorder - continue hydroxyzine, clonazepam, lamotrigine, olanzapine # VTE prophylaxis: LMWH # code status: full Quality Stroke Does the patient have a stroke diagnosis?: No VTE Prior VTE?: No VTE Risk Level:: Medical - moderate - high VTE Device Contraindication: N/A - Device Ordered VTE Drug Contraindication: N/A - Med Ordered
[2022-03-21 17:11] LABS: C Reactive Protein 2.82 mg/dL (< or = 0.50)
[2022-03-21 17:21] LABS: Procalcitonin 0.08 ng/mL
--- NOTE | 2022-03-21 17:54 | MHC.CM.PN ---
Addendum entered by Farrah Coreas 03/21/22 18:13: Pt assigned to observation. DONNELLY 03/21. Pt assigned room 380. Pt and aware of room assignment. Original Note: IMM 03/21. HCP on file. HCP Sarah Adin ([phone]). . PCP at [facility]. Cannot remember name. [employer] x4. Listed in record. Uses home oxygen at 1L. Uses walker. Has [employer] services 5 hours/week through [facility] and [facility] Referral to NA to follow. PT pending. Pt willing to have physical therapy when stronger, but states he will not go to a penitentiary for rehab or for any reason . D/C plan pending hospital course and PT recommendations. STR vs Home with services. Family to transport. CM to follow for d/c needs.
[2022-03-21 18:03] VITALS: BP 171/68; PULSE 108; RESP 18; O2SAT 97
--- NOTE | 2022-03-21 18:07 | PHA.MEDREC ---
Pharmacy Consult ? Medication Reconciliation Pharmacy has completed the medication reconciliation. Spoke on the phone with patient's Sarah. She listed all medications. She reported patient is taking lisinopril even though on last admission was prescribed losartan. She did not have any recollection of patient being on losartan. Report patient is no longer taking doxepin because it is not strong enough. Ginny Quiros, PharmD
[2022-03-21] MEDS: Enoxaparin Sodium 40 MG/0.4 ML SYRINGE SUBCUT (18:17)
--- NOTE | 2022-03-21 18:42 | PHA.PROG ---
Admission Date/Time: March 21, 2022 17:36 Indication: Cellulitis Weight in k.1 kg Adjusted body weight in K.6 kg [place] body weight in K kg Obesity Dosing Indication % IBW: 174% Serum Creatinine - Last 168 Hours 03/21/22 15:15 Creatinine 1.44 H Estimated CrCl and GFR - Last 168 Hours 03/21/22 15:15 Estim Creat Clear Calc 65.7 Estimated GFR 49 Vancomycin Loading Dose: 2000 mg Current Vancomycin Dosing Regimen: 1250 mg Q24H Date and Time for next Vancomycin Level to be drawn: 03/24 @ 1600 Pharmacist Comments on Vancomycin Plan: Patient is morbidly obese, therefore requires carefully monitor due to vancomycin high volume of distribution. Patient received vancomycin 2000 mg loading 03/21 @ 1818. Maintenance dose vanco 1250 mg Q24H is scheduled to begin 03/22 @ 1800. Expectd AUC 501 with a trough of 13.1. Trough to be drawn prior to 4th dose Pharmacy to monitor renal function daily. Ginny Quiros, Pepper Vancomycin dosing will take advantage of [employer] as a clinical decision support tool that uses Bayesian modeling to calculate individual patient's pharmacokinetic parameters and forecast the patient's drug concentration time course with the target goal AUC 24 range of 400 - 600 mg/L/hr.
[2022-03-21 19:22] VITALS: BMI 41.1
[2022-03-21 19:49] LABS: Glucose, Whole Blood 48 mg/dL (60-115)
[2022-03-21 20:00] VITALS: BP 149/70; PULSE 105; RESP 16; TEMP 36.3; O2SAT 92
[2022-03-21] MEDS: OLANZapine 10 MG TABLET 30 MG PO (20:37)
[2022-03-21] MEDS: clonazePAM 1 MG TABLET PO (20:38)
[2022-03-21] MEDS: hydrOXYzine HCL 25 MG TABLET PO (20:38)
[2022-03-21] MEDS: Atorvastatin Calcium 40 MG TABLET PO (20:38)
[2022-03-21] MEDS: 0.9 % Sodium Chloride Flush 3 ML SYRINGE IVFLUSH (20:39)
[2022-03-21 21:07] LABS: Glucose, Whole Blood 69 mg/dL (60-115)
--- NOTE | 2022-03-21 21:08 | MHC.PIE ---
p; poc 40's. note; pt reports missing dinner in ed. scheduled lantus held i; dr mckinley notified; give ds 50 now e; [facility]
[2022-03-21] MEDS: Dextrose 50 % 25 GM/50 ML SYRINGE IVPUSH (21:13)
[2022-03-21 23:32] VITALS: BP 140/63; PULSE 104; RESP 17; TEMP 36; O2SAT 93
[2022-03-21 23:56] LABS: Glucose, Whole Blood 138 mg/dL (60-115)
[2022-03-22 03:08] VITALS: BP 172/74; PULSE 98; RESP 17; TEMP 36.1; O2SAT 93
[2022-03-22] MEDS: Omeprazole 20 MG CAPSULE.DR PO (05:09)
[2022-03-22 06:58] LABS: Hematocrit 39.8 % (42.0-52.0); Hemoglobin 11.9 g/dl (14.0-18.0); Mean Corpuscular HGB Conc 29.9 g/dl (31.0-36.0); Mean Corpuscular Hemoglobin 30.3 pg (27.0-33.0); Mean Corpuscular Volume 101.3 fL (80.0-98.0); Mean Platelet Volume 10.5 fL (9.4-12.4); Platelet Count 113 X10*3/uL (160-400); Red Blood Count 3.93 X10*6/uL (4.60-5.80)
[2022-03-22 07:28] LABS: Estimated Average Glucose 157 mg/dL; Hemoglobin A1c % 7.1 %
[2022-03-22 07:35] VITALS: BP 166/72; PULSE 97; RESP 18; TEMP 37; O2SAT 93
[2022-03-22 07:45] LABS: Glucose, Whole Blood 83 mg/dL (60-115)
[2022-03-22 07:50] LABS: Anion Gap 14 (12-20); Blood Urea Nitrogen 18 mg/dL (9-16); Calcium 8.4 mg/dL (8.4-10.2); Carbon Dioxide 28 mmol/L (22-29); Chloride 108 mmol/L (96-108); Creatinine Clr Calc Pharmacy 69.9; Estimated Glomerular Filt Rate 52; Glucose Random 82 mg/dL (60-115); Magnesium 1.4 mg/dL (1.6-2.6); Potassium 4.9 mmol/L (3.3-5.1); Sodium 145 mmol/L (135-145)
[2022-03-22] MEDS: Magnesium Sulfate/H2O 2 GM/50 ML PIGGYBACK IV (08:04)
[2022-03-22] MEDS: Empagliflozin 25 MG TABLET PO (08:10)
[2022-03-22] MEDS: Cholecalciferol (Vitamin D3) 25 MCG TABLET PO (08:10)
[2022-03-22] MEDS: lamoTRIgine 25 MG TABLET 50 MG PO (08:10)
[2022-03-22] MEDS: hydrOXYzine HCL 25 MG TABLET PO ×2 (08:10→22:03)
[2022-03-22] MEDS: Aspirin Enteric Coated 81 MG TABLET.DR PO (08:10)
[2022-03-22] MEDS: carvediloL 3.125 MG TABLET PO ×2 (08:10→16:50)
[2022-03-22] MEDS: Magnesium Oxide 400 MG TABLET PO ×2 (08:10→16:50)
[2022-03-22] MEDS: clonazePAM 1 MG TABLET PO ×3 (08:10→22:03)
[2022-03-22] MEDS: Furosemide 20 MG TABLET PO (08:10)
[2022-03-22] MEDS: 0.9 % Sodium Chloride Flush 3 ML SYRINGE IVFLUSH ×3 (08:10→22:06)
[2022-03-22] MEDS: Lidocaine 4 % Patch ADH..PATCH 1 PATCH TRANSDERMA (08:14)
[2022-03-22 08:55] LABS: Folate 14.4 ng/mL (> or = 4.0); Vitamin B12 309 pg/mL (200-900)
--- NOTE | 2022-03-22 09:16 | HE.PHANOTE ---
JADEN BRAVO CONTINUE CURRENT DOSE, NEXT TROUGH 03/23 @1999 ALONSO
[2022-03-22] MEDS: lisinopriL 10 MG TABLET PO (09:22)
[2022-03-22] MEDS: Nicotine 21 MG PATCH.TD24 TRANSDERMA (09:22)
[2022-03-22] MEDS: Multivitamin TABLET 1 TAB PO (09:22)
[2022-03-22] MEDS: Venlafaxine HCl ER 37.5 MG CAP.ER.24H PO (09:22)
--- NOTE | 2022-03-22 10:08 | MHC.CM.PN ---
[facility] UPDATED IN [facility]. PATIENT DOES NOT WANT ANY REHAB REFERRALS CASE MANAGEMENT FOLLOWING FOR HIS DC HOME
[2022-03-22 11:34] LABS: Glucose, Whole Blood 138 mg/dL (60-115)
[2022-03-22 12:00] VITALS: BP 143/66; PULSE 78; RESP 16; TEMP 36.4; O2SAT 92
--- NOTE | 2022-03-22 12:05 | P.PNIM_ITS ---
Subjective Subjective Date of Service: 03/22/22 Interval History: redness improved no fever Review of Systems Review of Systems: Yes all other systems are reviewed and are negative Physical Exam Vital Signs: Vital Signs: Last Vital Signs Temp 97.6 F 03/22/22 12:00 Pulse 78 03/22/22 12:00 Resp 16 03/22/22 12:00 BP 143/66 H 03/22/22 12:00 Pulse Ox 92 03/22/22 12:00 O2 Del Method 03/22/22 12:00 O2 Flow Rate 2.0 03/22/22 12:00 Oxygen Flow Rate 4 03/21/22 12:17 BMI result Body Mass Index 41.1 Gen: in no acute distress but chronically ill- and weak-apearing HEENT: sclera anicteric, moist mucus membranes Neck: supple Lungs: clear to auscultation bilaterally Heart: regular rate and rhythm, no murmurs Abd: soft, non-tender, non-distended, morbid obesity Ext: bilateral leg edema Skin: extensive well-demarcated bright erythema of bilateral legs, warm to touch; no fluctuant areas Neuro: alert and oriented x3, no focal findings Psych: appropriate affect Objective Data Active Medications Acetaminophen (Acetaminophen 325 Mg Tablet) 650 mg PO Q6H PRN PRN Reason: Pain, Mild (Pain Scale 1-3) Albuterol/Ipratropium (Albuterol/Iprat 2.5/0.5mg 3 Ml Ampul.Neb) 3 ml INHALE RQ4H PRN PRN Reason: shotness of breath, weeze Aspirin (Aspirin Enteric Coated 81 Mg Tablet.) 81 mg PO DAILY [facility] Last Admin: 03/22/22 08:10 Dose: 81 mg Documented By: FELICITAS Atorvastatin Calcium (Atorvastatin Calcium 40 Mg Tablet) 40 mg PO BEDTIME [facility] Last Admin: 03/21/22 20:38 Dose: 40 mg Documented By: JUSTIN Carvedilol (Carvedilol 3.125 Mg Tablet) 3.125 mg PO BIDWM [facility]; Protocol Last Admin: 03/22/22 08:10 Dose: 3.125 mg Documented By: FELICITAS Clonazepam (Clonazepam 1 Mg Tablet) 1 mg PO TID [facility] Last Admin: 03/22/22 08:10 Dose: 1 mg Documented By: FELICITAS Dextrose (Dextrose 50 % 25 Gm/50 Ml Syringe) 25 gm IVPUSH Q15M PRN; Protocol PRN Reason: per Hypoglycemia Standing Ord. Last Admin: 03/21/22 21:13 Dose: 25 gm Documented By: JUSTIN Docusate Sodium (Docusate Sodium 100 Mg Capsule) 100 mg PO BID PRN PRN Reason: Constipation Empagliflozin (Empagliflozin 25 Mg Tablet) 25 mg PO DAILY [facility] Last Admin: 03/22/22 08:10 Dose: 25 mg Documented By: FELICITAS Enoxaparin Sodium (Enoxaparin Sodium 40 Mg/0.4 Ml Syringe) 40 mg SUBCUT Q24H [facility] Last Admin: 03/21/22 18:17 Dose: 40 mg Documented By: KULDIPANYamel Furosemide (Furosemide 20 Mg Tablet) 20 mg PO DAILY [facility]; Protocol Last Admin: 03/22/22 08:10 Dose: 20 mg Documented By: FELICITAS Glucose (Glucose Gel 15 Gm Gel..Gram.) 15 gm PO Q15M PRN; Protocol PRN Reason: per Hypoglycemia Standing Ord. Hydroxyzine HCl (Hydroxyzine Hcl 25 Mg Tablet) 25 mg PO BID [facility] Last Admin: 03/22/22 08:10 Dose: 25 mg Documented By: FELICITAS Vancomycin HCl 1,250 mg/ (Sodium Chloride) 250 mls @ 166.667 mls/hr IV Q24H [facility] Insulin Human Lispro (Insulin Lispro 100 Unit/Ml 3 Ml Vial) 0 unit SUBCUT QIDACHS [facility]; Protocol Last Admin: 03/22/22 11:31 Dose: Not Given Documented By: FELICITAS Non-Admin Reason: No Insulin Coverage Lamotrigine (Lamotrigine 25 Mg Tablet) 50 mg PO DAILY [facility] Last Admin: 03/22/22 08:10 Dose: 50 mg Documented By: FELICITAS Lidocaine (Lidocaine 4 % Patch Adh..Patch) 1 patch TRANSDERMA DAILY [facility] Last Admin: 03/22/22 08:14 Dose: 1 patch Documented By: FELICITAS Lisinopril (Lisinopril 10 Mg Tablet) 10 mg PO DAILY [facility]; Protocol Last Admin: 03/22/22 09:22 Dose: 10 mg Documented By: FELICITAS Magnesium Oxide (Magnesium Oxide 400 Mg Tablet) 400 mg PO BIDWM [facility] Last Admin: 03/22/22 08:10 Dose: 400 mg Documented By: FELICITAS Multivitamins/Vitamin C (Multivitamin Tablet) 1 tab PO DAILY [facility] Last Admin: 03/22/22 09:22 Dose: 1 tab Documented By: FELICITAS Nicotine (Nicotine 21 Mg Patch.Td24) 21 mg TRANSDERMA DAILY [facility] Last Admin: 03/22/22 09:22 Dose: 21 mg Documented By: FELICITAS Olanzapine (Olanzapine 10 Mg Tablet) 30 mg PO BEDTIME [facility] Last Admin: 03/21/22 20:37 Dose: 30 mg Documented By: JUSTIN Omeprazole (Omeprazole 20 Mg Capsule.Dr) 20 mg PO DAILY@0630 [facility] Last Admin: 03/22/22 05:09 Dose: 20 mg Documented By: JUSTIN Ondansetron HCl (Ondansetron Hcl 4 Mg/2 Ml Vial) 4 mg IVPUSH Q8H PRN PRN Reason: Nausea and Vomiting Pharmacy Consult (Consult Rx Vancomycin Dosing) 1 each MISCELLANE DAILY [facility] Sodium Chloride (0.9 % Sodium Chloride Flush 3 Ml Syringe) 3 ml IVFLUSH QSHIFT [facility] Last Admin: 03/22/22 08:10 Dose: 3 ml Documented By: FELICITAS Venlafaxine HCl (Venlafaxine Hcl Er 37.5 Mg Cap.Er.24h) 37.5 mg PO DAILY [facility] Last Admin: 03/22/22 09:22 Dose: 37.5 mg Documented By: FELICITAS Vitamin D (Cholecalciferol (Vitamin D3) 25 Mcg Tablet) 25 mcg PO DAILY [facility] Last Admin: 03/22/22 08:10 Dose: 25 mcg Documented By: FELICITAS Labs CBC & Chem 7: 03/22/22 05:58 03/22/22 05:58 Labs: Laboratory Results - last 24 hr 03/21/22 03/21/22 03/21/22 13:05 13:05 13:06 MCV 103.3 H MCH 30.4 MCHC 29.5 L RDW 13.2 Plt Count 123 L MPV 10.4 Immature Gran % (Auto) 0.4 Neut % (Auto) 76.0 H Lymph % (Auto) 14.0 L [place] % (Auto) 7.7 Eos % (Auto) 1.8 Baso % (Auto) 0.1 Lymph # (Auto) 1.2 [place] # (Auto) 0.7 Eos # (Auto) 0.2 Baso # (Auto) 0.0 Abs Immat Gran (auto) 0.03 Absolute Neuts (auto) 6.4 Absolute Nucleated RBC 0.000 Nucleated RBC % (auto) 0.0 VBG pH VBG pCO2 VBG pO2 VBG HCO3 VBG O2 Saturation VBG Base Excess Anion Gap Estim Creat Clear Calc Estimated GFR POC Glucose Random Glucose Estimat Average Glucose Hemoglobin A1c % Lactic Acid Calcium Magnesium Total Bilirubin AST ALT Alkaline Phosphatase Troponin I High Sens 5.9 C-Reactive Protein B-Natriuretic Peptide 55 Total Protein Albumin Vitamin B12 Folate Procalcitonin Urine Color Urine Appearance Urine pH Ur Specific [place] Urine Protein Urine Glucose (UA) Urine Ketones Urine Blood Urine Nitrite Ur Leukocyte Esterase Influenza Type A (PCR) Influenza Type B (PCR) RSV RNA Qual (PCR) SARS-CoV-2 RNA (RT-PCR) 03/21/22 03/21/22 03/21/22 13:13 13:25 14:40 MCV MCH MCHC RDW Plt Count MPV Immature Gran % (Auto) Neut % (Auto) Lymph % (Auto) [place] % (Auto) Eos % (Auto) Baso % (Auto) Lymph # (Auto) [place] # (Auto) Eos # (Auto) Baso # (Auto) Abs Immat Gran (auto) Absolute Neuts (auto) Absolute Nucleated RBC Nucleated RBC % (auto) VBG pH 7.40 VBG pCO2 47 VBG pO2 88 VBG HCO3 29 H VBG O2 Saturation 99.0 VBG Base Excess 3.9 Anion Gap Estim Creat Clear Calc Estimated GFR POC Glucose Random Glucose Estimat Average Glucose Hemoglobin A1c % Lactic Acid 1.0 Calcium Magnesium Total Bilirubin AST ALT Alkaline Phosphatase Troponin I High Sens C-Reactive Protein B-Natriuretic Peptide Total Protein Albumin Vitamin B12 Folate Procalcitonin Urine Color Urine Appearance Urine pH Ur Specific [place] Urine Protein Urine Glucose (UA) Urine Ketones Urine Blood Urine Nitrite Ur Leukocyte Esterase Influenza Type A (PCR) NEGATIVE Influenza Type B (PCR) NEGATIVE RSV RNA Qual (PCR) NEGATIVE SARS-CoV-2 RNA (RT-PCR) NEGATIVE 03/21/22 03/21/22 03/21/22 15:15 15:15 16:17 MCV MCH MCHC RDW Plt Count MPV Immature Gran % (Auto) Neut % (Auto) Lymph % (Auto) [place] % (Auto) Eos % (Auto) Baso % (Auto) Lymph # (Auto) [place] # (Auto) Eos # (Auto) Baso # (Auto) Abs Immat Gran (auto) Absolute Neuts (auto) Absolute Nucleated RBC Nucleated RBC % (auto) VBG pH VBG pCO2 VBG pO2 VBG HCO3 VBG O2 Saturation VBG Base Excess Anion Gap 15 Estim Creat Clear Calc 65.7 Estimated GFR 49 POC Glucose Random Glucose 86 D Estimat Average Glucose Hemoglobin A1c % Lactic Acid Calcium 8.3 L D Magnesium 1.2 L* Total Bilirubin 0.2 AST 18 ALT 18 Alkaline Phosphatase 115 Troponin I High Sens C-Reactive Protein 2.82 H B-Natriuretic Peptide Total Protein 5.5 L Albumin 3.2 L Vitamin B12 Folate Procalcitonin 0.08 Urine Color Yellow Urine Appearance Clear Urine pH 5.5 Ur Specific [place] 1.015 Urine Protein Negative Urine Glucose (UA) 250 H Urine Ketones Negative Urine Blood Negative Urine Nitrite Negative Ur Leukocyte Esterase Negative Influenza Type A (PCR) Influenza Type B (PCR) RSV RNA Qual (PCR) SARS-CoV-2 RNA (RT-PCR) 03/21/22 03/21/22 03/21/22 19:39 21:03 23:50 MCV MCH MCHC RDW Plt Count MPV Immature Gran % (Auto) Neut % (Auto) Lymph % (Auto) [place] % (Auto) Eos % (Auto) Baso % (Auto) Lymph # (Auto) [place] # (Auto) Eos # (Auto) Baso # (Auto) Abs Immat Gran (auto) Absolute Neuts (auto) Absolute Nucleated RBC Nucleated RBC % (auto) VBG pH VBG pCO2 VBG pO2 VBG HCO3 VBG O2 Saturation VBG Base Excess Anion Gap Estim Creat Clear Calc Estimated GFR POC Glucose 48 L* 69 138 H Random Glucose Estimat Average Glucose Hemoglobin A1c % Lactic Acid Calcium Magnesium Total Bilirubin AST ALT Alkaline Phosphatase Troponin I High Sens C-Reactive Protein B-Natriuretic Peptide Total Protein Albumin Vitamin B12 Folate Procalcitonin Urine Color Urine Appearance Urine pH Ur Specific [place] Urine Protein Urine Glucose (UA) Urine Ketones Urine Blood Urine Nitrite Ur Leukocyte Esterase Influenza Type A (PCR) Influenza Type B (PCR) RSV RNA Qual (PCR) SARS-CoV-2 RNA (RT-PCR) 03/22/22 03/22/22 03/22/22 05:58 05:58 05:58 MCV 101.3 H MCH 30.3 MCHC 29.9 L RDW 13.0 Plt Count 113 L MPV 10.5 Immature Gran % (Auto) Neut % (Auto) Lymph % (Auto) [place] % (Auto) Eos % (Auto) Baso % (Auto) Lymph # (Auto) [place] # (Auto) Eos # (Auto) Baso # (Auto) Abs Immat Gran (auto) Absolute Neuts (auto) Absolute Nucleated RBC 0.000 Nucleated RBC % (auto) 0.0 VBG pH VBG pCO2 VBG pO2 VBG HCO3 VBG O2 Saturation VBG Base Excess Anion Gap 14 Estim Creat Clear Calc 69.9 Estimated GFR 52 POC Glucose Random Glucose 82 Estimat Average Glucose 157 Hemoglobin A1c % 7.1 Lactic Acid Calcium 8.4 Magnesium 1.4 L* Total Bilirubin AST ALT Alkaline Phosphatase Troponin I High Sens C-Reactive Protein B-Natriuretic Peptide Total Protein Albumin Vitamin B12 Folate Procalcitonin Urine Color Urine Appearance Urine pH Ur Specific [place] Urine Protein Urine Glucose (UA) Urine Ketones Urine Blood Urine Nitrite Ur Leukocyte Esterase Influenza Type A (PCR) Influenza Type B (PCR) RSV RNA Qual (PCR) SARS-CoV-2 RNA (RT-PCR) 03/22/22 03/22/22 03/22/22 05:58 07:33 11:24 MCV MCH MCHC RDW Plt Count MPV Immature Gran % (Auto) Neut % (Auto) Lymph % (Auto) [place] % (Auto) Eos % (Auto) Baso % (Auto) Lymph # (Auto) [place] # (Auto) Eos # (Auto) Baso # (Auto) Abs Immat Gran (auto) Absolute Neuts (auto) Absolute Nucleated RBC Nucleated RBC % (auto) VBG pH VBG pCO2 VBG pO2 VBG HCO3 VBG O2 Saturation VBG Base Excess Anion Gap Estim Creat Clear Calc Estimated GFR POC Glucose 83 138 H Random Glucose Estimat Average Glucose Hemoglobin A1c % Lactic Acid Calcium Magnesium Total Bilirubin AST ALT Alkaline Phosphatase Troponin I High Sens C-Reactive Protein B-Natriuretic Peptide Total Protein Albumin Vitamin B12 309 Folate 14.4 Procalcitonin Urine Color Urine Appearance Urine pH Ur Specific [place] Urine Protein Urine Glucose (UA) Urine Ketones Urine Blood Urine Nitrite Ur Leukocyte Esterase Influenza Type A (PCR) Influenza Type B (PCR) RSV RNA Qual (PCR) SARS-CoV-2 RNA (RT-PCR) Assessment and Plan (1) Hypomagnesemia: Status: Acute (2) Cellulitis: Status: Acute Plan d#2 66yo M with DM2, CAD, HFrEF, obesity, HTN, CKD3, COPD on 1L home O2, and PTSD who was just admitted here for COPD exacerbation and hypomagnesemia and more recently seen in the ED after multiple falls.? Presenting with 3 days of worsening redness, swelling, and pain of his legs concerning for cellulitis.? Also noted to have hypomagnesemia. # cellulitis/erysipelas - follow BCx, give IV vancomycin d#2, elevate legs # hypoMg, recurrent - replete IV and increase PO maintenance # chronic hypoxic resp failure - supplemental O2 # CAD # HTN # chronic HFrEF - not decompensated/acute.? continue home meds including ASA, atorvastatin, carvedilol, lisinopril, furosemide # COPD - prn nebs # DM2 - basal/bolus insulin # mood disorder - continue? hydroxyzine, clonazepam, lamotrigine, olanzapine # VTE prophylaxis: LMWH # dispo: anticipate STR In my clinical judgment, the patient requires continued inpatient hospitalization for the following reasons: IV ABX, IV Mg Quality Stroke Does the patient have a stroke diagnosis?: No VTE Prior VTE?: No VTE Risk Level:: Medical - moderate - high VTE Device Contraindication: N/A - Device Ordered VTE Drug Contraindication: N/A - Med Ordered
[2022-03-22 16:00] VITALS: BP 161/71; PULSE 119; RESP 17; TEMP 36.3; O2SAT 96
[2022-03-22 16:34] LABS: Glucose, Whole Blood 169 mg/dL (60-115)
[2022-03-22] MEDS: Insulin Lispro 100 UNIT/ML 3 ML VIAL SUBCUT (16:50)
[2022-03-22 17:21] VITALS: PULSE 85
[2022-03-22] MEDS: Enoxaparin Sodium 40 MG/0.4 ML SYRINGE SUBCUT (17:31)
[2022-03-22] MEDS: vancomycin HCL 1,250 MG in 0.9 % Sodium Chloride 250 ML 166.67 MG IV (17:31)
[2022-03-22 20:00] VITALS: BP 118/61; PULSE 98; RESP 17; TEMP 36.5; O2SAT 96
[2022-03-22 20:30] LABS: Glucose, Whole Blood 128 mg/dL (60-115)
[2022-03-22] MEDS: OLANZapine 10 MG TABLET 30 MG PO (22:03)
[2022-03-22] MEDS: Atorvastatin Calcium 40 MG TABLET PO (22:03)
[2022-03-23] VITALS (7 sets, daily range): BP systolic 130–153; BP diastolic 62–82; PULSE 75–94; RESP 17–18; TEMP 35.7–37; O2SAT 91–98
[2022-03-23] MEDS: Omeprazole 20 MG CAPSULE.DR PO (05:15)
[2022-03-23 07:51] LABS: Glucose, Whole Blood 107 mg/dL (60-115)
[2022-03-23 07:51] LABS: Anion Gap 12 (12-20); Blood Urea Nitrogen 18 mg/dL (9-16); C Reactive Protein 7.56 mg/dL (< or = 0.50); Calcium 8.7 mg/dL (8.4-10.2); Carbon Dioxide 34 mmol/L (22-29); Chloride 102 mmol/L (96-108); Creatinine Clr Calc Pharmacy 69.9; Estimated Glomerular Filt Rate 52; Glucose Random 104 mg/dL (60-115); Magnesium 1.5 mg/dL (1.6-2.6); Potassium 5.2 mmol/L (3.3-5.1); Sodium 143 mmol/L (135-145)
[2022-03-23 07:54] LABS: Hematocrit 38.4 % (42.0-52.0); Hemoglobin 11.7 g/dl (14.0-18.0); Mean Corpuscular HGB Conc 30.5 g/dl (31.0-36.0); Mean Corpuscular Hemoglobin 30.6 pg (27.0-33.0); Mean Corpuscular Volume 100.5 fL (80.0-98.0); Mean Platelet Volume 10.5 fL (9.4-12.4); Platelet Count 102 X10*3/uL (160-400); Red Blood Count 3.82 X10*6/uL (4.60-5.80); Red Cell Distribution Width 12.8 % (11.0-16.0)
[2022-03-23] MEDS: Magnesium Oxide 400 MG TABLET PO (08:09)
[2022-03-23] MEDS: Aspirin Enteric Coated 81 MG TABLET.DR PO (08:09)
[2022-03-23] MEDS: lamoTRIgine 25 MG TABLET 50 MG PO (08:10)
[2022-03-23] MEDS: clonazePAM 1 MG TABLET PO ×3 (08:10→20:52)
[2022-03-23] MEDS: Multivitamin TABLET 1 TAB PO (08:10)
[2022-03-23] MEDS: Cholecalciferol (Vitamin D3) 25 MCG TABLET PO (08:10)
[2022-03-23] MEDS: hydrOXYzine HCL 25 MG TABLET PO ×2 (08:10→20:52)
[2022-03-23] MEDS: Furosemide 20 MG TABLET PO (08:10)
[2022-03-23] MEDS: Venlafaxine HCl ER 37.5 MG CAP.ER.24H PO (08:10)
[2022-03-23] MEDS: Empagliflozin 25 MG TABLET PO (08:11)
[2022-03-23] MEDS: lisinopriL 10 MG TABLET PO (08:11)
[2022-03-23] MEDS: 0.9 % Sodium Chloride Flush 3 ML SYRINGE IVFLUSH ×3 (08:11→20:52)
[2022-03-23] MEDS: carvediloL 3.125 MG TABLET PO ×2 (08:11→16:37)
[2022-03-23] MEDS: Lidocaine 4 % Patch ADH..PATCH 1 PATCH TRANSDERMA (08:11)
[2022-03-23] MEDS: Nicotine 21 MG PATCH.TD24 TRANSDERMA (08:14)
[2022-03-23] MEDS: Magnesium Sulfate/H2O 2 GM/50 ML PIGGYBACK IV (08:24)
--- NOTE | 2022-03-23 09:55 | P.CDIC_ITS ---
CDI Concurrent Query Documentation Clarification: PHYSICIAN'S DOCUMENTATION REQUEST Date of Query: 03/23/22 0956 Patient Name: Juma Oakley Admit Date: 03/22/22 Dear Doctor, A review of the medical record indicates additional documentation may be needed. Please review below and update the documentation accordingly. Risk Factors/Clinical Indicators/Treatments BMI 41.1 5' 10 in height If possible, please provide an associated diagnosis related to the abnormal BMI, such as: Specifics to the obesity noted: For a BMI >= 40: * Morbid Obesity * Other * Unable to determine Use of terms such as suspected, likely, concern for, or probable (associated with a specific diagnosis that is being evaluated, monitored, or treated as if it exists) are acceptable and can be coded in the inpatient setting, when documented at the time of discharge. Thank you, Amber Palacios [facility], CDIS Extension: [phone] Please use your independent medical judgment in providing your response. THIS QUERY IS PART OF THE PERMANENT MEDICAL RECORD Provider Response: Morbid Obesity
[2022-03-23 11:34] LABS: Glucose, Whole Blood 162 mg/dL (60-115)
[2022-03-23] MEDS: Insulin Lispro 100 UNIT/ML 3 ML VIAL SUBCUT ×3 (11:34→20:51)
--- NOTE | 2022-03-23 11:36 | P.CDIC_ITS ---
CDI Concurrent Query Documentation Clarification: PHYSICIAN'S DOCUMENTATION REQUEST Date of Query: 03/23/22 1136 Patient Name: Juma Oakley Admit Date: 03/22/22 Dear Doctor, A review of the medical record indicates additional documentation may be needed. Please review below and update the documentation accordingly. Clinical Indicators: Risk Factors/Clinical Indicators/Treatments PN: 03/22 - Cellulitis/erysipelas IV Vancomycin DM basal/bolus insulin. Please clarify the relationship between these conditions: Diabetes and cellulitis: Cellulitis due to/associated with Diabetes mellitus Type 2 * Yes, [ ] is related to / associated with / due to [ ] * No, [ ] is not related to / associated with / due to [ ] * Unable to determine Use of terms such as suspected, likely, concern for, or probable (associated with a specific diagnosis that is being evaluated, monitored, or treated as if it exists) are acceptable and can be coded in the inpatient setting, when documented at the time of discharge. Thank you, Amber Palacios [facility], CDIS Extension: [phone] Please use your independent medical judgment in providing your response. THIS QUERY IS PART OF THE PERMANENT MEDICAL RECORD Provider Response: Other Other Diagnosis: unable to determine
--- NOTE | 2022-03-23 13:57 | MHC.CM.PN ---
Per MD round 1 more day of IV abts, and plan for d/c tomorrow. No plan for change in d/c t this time.
--- NOTE | 2022-03-23 14:11 | P.PNIM_ITS ---
Subjective Subjective Date of Service: 03/23/22 Interval History: no fever/chills leg redness improving Review of Systems Review of Systems: Yes all other systems are reviewed and are negative Physical Exam Vital Signs: Vital Signs: Last Vital Signs Temp 96.3 F L 03/23/22 12:00 Pulse 89 03/23/22 12:00 Resp 18 03/23/22 12:00 BP 153/82 H 03/23/22 12:00 Pulse Ox 91 L 03/23/22 12:00 O2 Del Method 03/23/22 12:00 O2 Flow Rate 2 03/23/22 12:00 Oxygen Flow Rate 4 03/21/22 12:17 BMI result Body Mass Index 41.1 Gen: in no acute distress but chronically ill- and weak-apearing HEENT: sclera anicteric, moist mucus membranes Neck: supple Lungs: clear to auscultation bilaterally Heart: regular rate and rhythm, no murmurs Abd: soft, non-tender, non-distended, morbid obesity Ext: bilateral leg edema Skin: improved erythema of bilateral legs, warm to touch; no fluctuant areas Neuro: alert and oriented x3, no focal findings Psych: appropriate affect Objective Data Active Medications Acetaminophen (Acetaminophen 325 Mg Tablet) 650 mg PO Q6H PRN PRN Reason: Pain, Mild (Pain Scale 1-3) Albuterol/Ipratropium (Albuterol/Iprat 2.5/0.5mg 3 Ml Ampul.Neb) 3 ml INHALE RQ4H PRN PRN Reason: shotness of breath, weeze Aspirin (Aspirin Enteric Coated 81 Mg Tablet.) 81 mg PO DAILY [facility] Last Admin: 03/23/22 08:09 Dose: 81 mg Documented By: DEB Atorvastatin Calcium (Atorvastatin Calcium 40 Mg Tablet) 40 mg PO BEDTIME [facility] Last Admin: 03/22/22 22:03 Dose: 40 mg Documented By: JUSTIN Carvedilol (Carvedilol 3.125 Mg Tablet) 3.125 mg PO BIDWM [facility]; Protocol Last Admin: 03/23/22 08:11 Dose: 3.125 mg Documented By: DEB Clonazepam (Clonazepam 1 Mg Tablet) 1 mg PO TID [facility] Last Admin: 03/23/22 08:10 Dose: 1 mg Documented By: DEB Dextrose (Dextrose 50 % 25 Gm/50 Ml Syringe) 25 gm IVPUSH Q15M PRN; Protocol PRN Reason: per Hypoglycemia Standing Ord. Last Admin: 03/21/22 21:13 Dose: 25 gm Documented By: JUSTIN Docusate Sodium (Docusate Sodium 100 Mg Capsule) 100 mg PO BID PRN PRN Reason: Constipation Empagliflozin (Empagliflozin 25 Mg Tablet) 25 mg PO DAILY [facility] Last Admin: 03/23/22 08:11 Dose: 25 mg Documented By: DEB Enoxaparin Sodium (Enoxaparin Sodium 40 Mg/0.4 Ml Syringe) 40 mg SUBCUT Q24H [facility] Last Admin: 03/22/22 17:31 Dose: 40 mg Documented By: FELICITAS Furosemide (Furosemide 20 Mg Tablet) 20 mg PO DAILY [facility]; Protocol Last Admin: 03/23/22 08:10 Dose: 20 mg Documented By: DEB Glucose (Glucose Gel 15 Gm Gel..Gram.) 15 gm PO Q15M PRN; Protocol PRN Reason: per Hypoglycemia Standing Ord. Hydroxyzine HCl (Hydroxyzine Hcl 25 Mg Tablet) 25 mg PO BID [facility] Last Admin: 03/23/22 08:10 Dose: 25 mg Documented By: DEB Vancomycin HCl 1,250 mg/ (Sodium Chloride) 250 mls @ 166.667 mls/hr IV Q24H [facility] Last Infusion: 03/22/22 19:06 Dose: 0 mls/hr Documented By: JUSTIN Insulin Human Lispro (Insulin Lispro 100 Unit/Ml 3 Ml Vial) 0 unit SUBCUT QIDACHS [facility]; Protocol Last Admin: 03/23/22 11:34 Dose: 2 unit Documented By: DEB Lamotrigine (Lamotrigine 25 Mg Tablet) 50 mg PO DAILY [facility] Last Admin: 03/23/22 08:10 Dose: 50 mg Documented By: DEB Lidocaine (Lidocaine 4 % Patch Adh..Patch) 1 patch TRANSDERMA DAILY [facility] Last Admin: 03/23/22 08:11 Dose: 1 patch Documented By: DEB Lisinopril (Lisinopril 10 Mg Tablet) 10 mg PO DAILY [facility]; Protocol Last Admin: 03/23/22 08:11 Dose: 10 mg Documented By: DEB Magnesium Oxide (Magnesium Oxide 400 Mg Tablet) 800 mg PO BIDWM [facility] Multivitamins/Vitamin C (Multivitamin Tablet) 1 tab PO DAILY [facility] Last Admin: 03/23/22 08:10 Dose: 1 tab Documented By: DEB Nicotine (Nicotine 21 Mg Patch.Td24) 21 mg TRANSDERMA DAILY [facility] Last Admin: 03/23/22 08:14 Dose: 21 mg Documented By: DEB Olanzapine (Olanzapine 10 Mg Tablet) 30 mg PO BEDTIME [facility] Last Admin: 03/22/22 22:03 Dose: 30 mg Documented By: JUSTIN Omeprazole (Omeprazole 20 Mg Capsule.Dr) 20 mg PO DAILY@0630 [facility] Last Admin: 03/23/22 05:15 Dose: 20 mg Documented By: JUSTIN Ondansetron HCl (Ondansetron Hcl 4 Mg/2 Ml Vial) 4 mg IVPUSH Q8H PRN PRN Reason: Nausea and Vomiting Pharmacy Consult (Consult Rx Vancomycin Dosing) 1 each MISCELLANE DAILY [facility] Sodium Chloride (0.9 % Sodium Chloride Flush 3 Ml Syringe) 3 ml IVFLUSH QSHIFT [facility] Last Admin: 03/23/22 08:11 Dose: 3 ml Documented By: DEB Venlafaxine HCl (Venlafaxine Hcl Er 37.5 Mg Cap.Er.24h) 37.5 mg PO DAILY [facility] Last Admin: 03/23/22 08:10 Dose: 37.5 mg Documented By: DEB Vitamin D (Cholecalciferol (Vitamin D3) 25 Mcg Tablet) 25 mcg PO DAILY [facility] Last Admin: 03/23/22 08:10 Dose: 25 mcg Documented By: DEB Labs CBC & Chem 7: 03/23/22 06:19 03/23/22 06:19 Labs: Laboratory Results - last 24 hr 03/22/22 03/22/22 03/23/22 16:29 20:25 06:19 MCV 100.5 H MCH 30.6 MCHC 30.5 L RDW 12.8 Plt Count 102 L MPV 10.5 Absolute Nucleated RBC 0.000 Nucleated RBC % (auto) 0.0 Anion Gap Estim Creat Clear Calc Estimated GFR POC Glucose 169 H 128 H Random Glucose Calcium Magnesium C-Reactive Protein 03/23/22 03/23/22 03/23/22 06:19 07:18 11:15 MCV MCH MCHC RDW Plt Count MPV Absolute Nucleated RBC Nucleated RBC % (auto) Anion Gap 12 Estim Creat Clear Calc 69.9 Estimated GFR 52 POC Glucose 107 162 H Random Glucose 104 Calcium 8.7 Magnesium 1.5 L C-Reactive Protein 7.56 H Microbiology Microbiology Results: Microbiology 03/21/22 13:05 Blood Culture - Preliminary Blood - Venous No growth after 24 hours. 03/21/22 13:05 Blood Culture - Preliminary Blood - Venous No growth after 24 hours. Assessment and Plan (1) Hypomagnesemia: Status: Acute (2) Cellulitis: Status: Acute Plan d#3 66yo M with DM2, CAD, HFrEF, obesity, HTN, CKD3, COPD on 1L home O2, and PTSD who was just admitted here for COPD exacerbation and hypomagnesemia and more recently seen in the ED after multiple falls.? Presenting with 3 days of worsening redness, swelling, and pain of his legs concerning for cellulitis.? Also noted to have hypomagnesemia. # cellulitis/erysipelas - follow BCx, give IV vancomycin d#3, elevate legs # hypoMg, recurrent - replete IV and increase PO maintenance, recheck leve lisa AM # hyperK - very mild- give 1 dose SZC and recheck level in AM # chronic hypoxic resp failure - supplemental O2 # CAD # HTN # chronic HFrEF - not decompensated/acute.? continue home meds including ASA, atorvastatin, carvedilol, lisinopril, furosemide # COPD - prn nebs # DM2 - basal/bolus insulin # mood disorder - continue?hydroxyzine, clonazepam, lamotrigine, olanzapine # VTE prophylaxis: LMWH # dispo: STR recommended, pt declines, will d/c home with VNA, likely tomorrow In my clinical judgment, the patient requires continued inpatient hospitalizatio n for the following reasons: IV ABX, IV Mg Quality Stroke Does the patient have a stroke diagnosis?: No VTE Prior VTE?: No VTE Risk Level:: Medical - moderate - high VTE Device Contraindication: N/A - Device Ordered VTE Drug Contraindication: N/A - Med Ordered
[2022-03-23] MEDS: Sodium Zirconium Cyclosilicate 5 GM POWD.PACK PO (14:53)
[2022-03-23 16:25] LABS: Glucose, Whole Blood 192 mg/dL (60-115)
[2022-03-23] MEDS: Magnesium Oxide 400 MG TABLET 800 MG PO (16:36)
[2022-03-23] MEDS: Enoxaparin Sodium 40 MG/0.4 ML SYRINGE SUBCUT (16:36)
--- NOTE | 2022-03-23 17:43 | PC.NURSE ---
Phlebotomy called at 1715 to draw vanco trough, stated would be up as soon as possible
--- NOTE | 2022-03-23 19:58 | HE.PHANOTE ---
RE: Jose Juan 03/23/22 phlebotomy unable to get blood for trough that was due at 1600, re-timed dose for 1999 with next level to be drawn 03/24 @1800. Renal function stable
[2022-03-23 20:31] LABS: Glucose, Whole Blood 192 mg/dL (60-115)
[2022-03-23] MEDS: OLANZapine 10 MG TABLET 30 MG PO (20:52)
[2022-03-23] MEDS: Atorvastatin Calcium 40 MG TABLET PO (20:52)
[2022-03-23] MEDS: vancomycin HCL 1,250 MG in 0.9 % Sodium Chloride 250 ML 166.67 MG IV (20:53)
[2022-03-24] VITALS: BP 155/73; PULSE 74; RESP 18; TEMP 36.2; O2SAT 92
[2022-03-24 04:00] VITALS: BP 128/78; PULSE 94; RESP 18; TEMP 36.2; O2SAT 92
[2022-03-24] MEDS: Omeprazole 20 MG CAPSULE.DR PO (05:45)
[2022-03-24 07:13] VITALS: BP 143/76; PULSE 103; RESP 18; TEMP 36.6; O2SAT 95
[2022-03-24 07:27] LABS: Anion Gap 10 (12-20); Blood Urea Nitrogen 17 mg/dL (9-16); Calcium 8.9 mg/dL (8.4-10.2); Carbon Dioxide 37 mmol/L (22-29); Chloride 101 mmol/L (96-108); Creatinine Clr Calc Pharmacy 66.5; Estimated Glomerular Filt Rate 49; Glucose Random 130 mg/dL (60-115); Magnesium 1.5 mg/dL (1.6-2.6); Potassium 5.1 mmol/L (3.3-5.1); Sodium 143 mmol/L (135-145)
[2022-03-24 07:37] LABS: Glucose, Whole Blood 144 mg/dL (60-115)
[2022-03-24] MEDS: Nicotine 21 MG PATCH.TD24 TRANSDERMA (07:55)
[2022-03-24] MEDS: Lidocaine 4 % Patch ADH..PATCH 1 PATCH TRANSDERMA (07:55)
[2022-03-24] MEDS: Multivitamin TABLET 1 TAB PO (07:56)
[2022-03-24] MEDS: Magnesium Oxide 400 MG TABLET 800 MG PO (07:56)
[2022-03-24] MEDS: Venlafaxine HCl ER 37.5 MG CAP.ER.24H PO (07:56)
[2022-03-24] MEDS: lamoTRIgine 25 MG TABLET 50 MG PO (07:56)
[2022-03-24] MEDS: carvediloL 3.125 MG TABLET PO (07:56)
[2022-03-24] MEDS: hydrOXYzine HCL 25 MG TABLET PO (07:57)
[2022-03-24] MEDS: Empagliflozin 25 MG TABLET PO (07:57)
[2022-03-24] MEDS: Aspirin Enteric Coated 81 MG TABLET.DR PO (07:57)
[2022-03-24] MEDS: clonazePAM 1 MG TABLET PO (07:57)
[2022-03-24] MEDS: Furosemide 20 MG TABLET PO (07:57)
[2022-03-24] MEDS: Cholecalciferol (Vitamin D3) 25 MCG TABLET PO (07:57)
[2022-03-24] MEDS: lisinopriL 10 MG TABLET PO (07:57)
[2022-03-24] MEDS: Magnesium Sulfate/H2O 2 GM/50 ML PIGGYBACK IV (07:58)
[2022-03-24] MEDS: 0.9 % Sodium Chloride Flush 3 ML SYRINGE IVFLUSH (07:58)
[2022-03-24 10:58] VITALS: BP 135/77; PULSE 90; RESP 18; TEMP 36.6; O2SAT 98
--- NOTE | 2022-03-24 11:27 | W.MHC.F2F ---
Service Date Service Date: 03/24/22 Encounter Date of encounter: 03/24/22 Reasons for Services Signs and symptoms assessed: unsteady gait; needs penitentiary for blood sugar checks, diabetic education Reason for penitentiary: diabetic teaching, monitoring of unstable blood sugar and teach disease management Reason for physical therapy: home safety and mobility and therapeutic exercises Overseeing Care: Rom Cowart Homebound: Leaving the home is medically contraindicated at this time without the asist of a device and/or another person due th the listed conditions above and below. Reason homebound: unsteady gait / fall risk Certification: Based on the above findings, I certify that this patient is confined to the home and needs intermittent penitentiary care, physical therapy and/or speech therapy, or continues to need occupational therapy. The patient is under my care, and I have initiated the establishment of the plan of care. The patient will be followed by a physician who will periodically review the plan of care.
[2022-03-24 11:28] LABS: Glucose, Whole Blood 264 mg/dL (60-115)
--- NOTE | 2022-03-24 11:29 | MHC.CM.PN ---
PATIENT TO RETURN HOME TODAY WITH [facility]. RN AWARE OF PLAN.
--- NOTE | 2022-03-24 11:29 | PM.DS ---
DS: Providers Provider Date of Service: 03/24/22 Date of admission: 03/22/22 10:04 Date of discharge: 03/24/22 Primary care physician: Nonstaff Physician Attending physician on discharge: Raciel Arboleda Discharging clinician: Sanjuanita Rowe DS: Diagnosis Discharge Diagnosis (1) Hypomagnesemia: Status: Acute (2) Cellulitis: Status: Acute DS: Summary Hospital Course Hospital Course: From H&P on day of admission 66yo M with DM2, CAD, HFrEF, obesity, HTN, CKD3, COPD on 1L home O2, and PTSD who was just admitted here 03/05-03/09/22 for COPD exacerbation and hypomagnesemia.? He came to the ED on 03/17/22 after multiple falls.? No fracture or intracranial bleed.? Over the last 3 days, he's become increasingly weak and his legs have become bright red, swollen, and painful.? He complains of generalized malaise.? No drainage of pus or fluid.? No fever or chills.? No dyspnea, wheeze, or cough.? In the ED, he was noted to have low magnesium of 1.2.? He was mildly hypoxic with SaO2 of 88-89% on 2L O2.? He was given IV magnesium and IV ceftriaxone. cellulitis/erysipelas Treated with IV vancomycin, will transition to po doxy on discharge. Patient had no leukocytosis. He has remained afebrile. Blood cultures have remained negative. hypoMg, recurrent Was repleted with IV magnesium. Dose of oral replacement was increased. Should follow-up with PCP as outpatient chronic hypoxic resp failure. continue supplemental O2 CAD/HTN/chronic HFrEF - not decompensated/acute.? continue on home meds including ASA, atorvastatin, carvedilol, lisinopril, furosemide COPD - prn nebs. continued on baseline supplemental oxygen patient was evaluated by Physical therapy who recommended short-term rehab. Patient has declined rehab and opts to return home with home physical therapy Time Spent with Patient Time attestation: Total time spent providing and/or coordinating discharge services: Discharge coordination time: Greater than 30 minutes Quality: Safe Use of Opioids Does Pt have an Active Cancer Diagnosis on the Problem List?: No Quality: Stroke Does the patient have a stroke diagnosis?: No Physical Exam Vital Signs: Vital Signs: Last Vital Signs Temp 97.9 F 03/24/22 10:58 Pulse 90 03/24/22 10:58 Resp 18 03/24/22 10:58 BP 135/77 03/24/22 10:58 Pulse Ox 98 03/24/22 10:58 O2 Del Method 03/24/22 10:58 O2 Flow Rate 2 03/24/22 10:58 Oxygen Flow Rate 4 03/21/22 12:17 BMI result Body Mass Index 41.1 Const: General: comfortable, no acute distress, alert and awake Nutritional Appearance: obese Orientation/consciousness: patient oriented x3 Resp: Effort & Inspection: normal respiratory effort and able to speak in complete sentences Auscultation: diminished lung sounds Cardio: Rate: regular rate Heart sounds: S1 normal heart sound present and S2 normal heart sound present GI: Inspection: No distended and Yes obesity Palpation (GI): Soft to palpation and nontender Neuro: General: patient oriented x3 Extrem: Other: chronic venous stasis skin changes to b/l lower extremities DS: Data Data Completed and Pending Completed studies during hospitalization [Text1]: Procedures Assistance with Respiratory Ventilation, Less than 24 Consecutive Hours, Continuous Positive Airway Pressure (04/04/21) Labs on day of discharge: Laboratory Results - last 24 hr 03/23/22 03/23/22 03/23/22 11:15 15:24 19:04 Sodium Potassium Chloride Carbon Dioxide Anion Gap BUN Creatinine Estim Creat Clear Calc Estimated GFR POC Glucose 162 H 192 H 192 H Random Glucose Calcium Magnesium 03/24/22 03/24/22 03/24/22 06:18 07:18 11:09 Sodium 143 Potassium 5.1 Chloride 101 Carbon Dioxide 37 H Anion Gap 10 L BUN 17 H Creatinine 1.44 H Estim Creat Clear Calc 66.5 Estimated GFR 49 POC Glucose 144 H 264 H Random Glucose 130 H Calcium 8.9 Magnesium 1.5 L Preliminary micro results at discharge 03/21/22 13:05 Blood Culture - Preliminary Blood - Venous No growth after 48 hours. 03/21/22 13:05 Blood Culture - Preliminary Blood - Venous No growth after 48 hours. Discharge Plan Discharge Anticipated Discharge Date/Time: 03/24/22 11:24 Patient Disposition: Home Health Service Discharge Diagnosis: Cellulitis low magnesium levels Referrals: Octavio RENEE [Outside] - 1 Week Physician,Nonstaff [Primary Care Provider] - 1 Week Discharge Medications: New magnesium oxide 400 mg (241.3 mg magnesium) Tablet 800 mg PO BIDWM 30 Days Qty: 120 0RF doxycycline hyclate 100 mg tablet 100 mg PO BID 2 Days Qty: 4 0RF Continued clonazepam 1 mg Tablet 1 mg PO TID aspirin 81 mg Tablet,Delayed Release (Dr/Ec) 81 mg PO DAILY lisinopril 10 mg Tablet 10 mg PO DAILY omeprazole 20 mg Capsule,Delayed Release(Dr/Ec) 20 mg PO DAILY@0630 hydroxyzine pamoate 25 mg Capsule 25 mg PO BID acetaminophen 325 mg Tablet 650 mg PO QID PRN (Reason: Pain) lidocaine 5 % Adhesive Patch,Medicated 1 patch TOPICAL DAILY Rx Instructions: leave on most painful area for up to 12 hrs lamotrigine 100 mg Tablet 50 mg PO DAILY insulin glargine [Lantus Solostar U-100 Insulin] 100 unit/mL (3 mL) Insulin Pen 30 unit SUBCUT BEDTIME atorvastatin 80 mg tablet 40 mg PO BEDTIME carvedilol 3.125 mg tablet 3.125 mg PO BIDWM Rx Instructions: must administer with a meal/food furosemide 20 mg tablet 20 mg PO DAILY nicotine 21 mg/24 hr patch 24 hour 1 patch transdermal DAILY Qty: 28 0RF multivitamin Tablet 1 tab PO DAILY docusate sodium 100 mg Capsule 100 mg PO BID PRN (Reason: Constipation) olanzapine 15 mg Tablet 30 mg PO BEDTIME cholecalciferol (vitamin D3) 25 mcg (1,000 unit) Tablet 25 mcg PO DAILY venlafaxine 37.5 mg Tablet Extended Release 24hr 37.5 mg PO DAILY empagliflozin 25 mg Tablet 25 mg PO DAILY Held insulin lispro 100 unit/mL Insulin Pen 14 unit SUBCUT TIDAC Hold Instructions: monitor blood sugar before meals and at night call to schedule follow up with PCP Discontinued magnesium 250 mg Tablet 500 mg PO DAILY Discharge Orders: Discharge Order (Routine); Ordered 03/24/22 Ordered By: Sanjuanita Rowe Activity on Discharge: As tolerated Stand Alone Forms: Patient Portal Discharge page Care Plan Goals: see below Health Concerns: Leg cellulitis low magnesium levels Plan of Treatment: Dose of magnesium supplementation has been increased, please take as prescribed Finish antibiotics as prescribed Do not take your pre-meal insulin for now. Follow a diabetic diet, check blood sugar before meals and at bedtime and keep track of blood sugar. Can slowly resume premeal insulin if blood sugars remain elevated Call to schedule follow up appointment with PCP. Assessment: see discharge summary Discharge Date/Time: 03/24/22 13:04
[2022-03-24] MEDS: Insulin Lispro 100 UNIT/ML 3 ML VIAL SUBCUT (11:49)
== END 2022-03-24 13:04 | disposition home health service (06) | DRG 603 ==
LOC: HO.ED 16:27 → HO.EDOVER 17:40 → HO.S3 17:50
PROVIDERS: Physician Assistant; Physician Assistant Medical; Admitting Provider Family Medicine; Emergency Provider Emergency Medicine Emergency Medical Services; PCP Internal Medicine; Visit Provider Physician Assistant Medical
DX: L03.116 Cellulitis of left lower limb (principal); I13.0 Hypertensive heart and chronic kidney disease with heart failure and stage 1 through stage 4 chronic kidney disease, or unspecified chronic kidney disease; I50.22 Chronic systolic (congestive) heart failure; Z68.41 Body mass index [BMI] 40.0-44.9, adult; J96.11 Chronic respiratory failure with hypoxia; L03.115 Cellulitis of right lower limb; F41.9 Anxiety disorder, unspecified; I25.10 Atherosclerotic heart disease of native coronary artery without angina pectoris; F43.10 Post-traumatic stress disorder, unspecified; E83.42 Hypomagnesemia; A46 Erysipelas; E66.01 Morbid (severe) obesity due to excess calories; E11.22 Type 2 diabetes mellitus with diabetic chronic kidney disease; J44.9 Chronic obstructive pulmonary disease, unspecified; E87.5 Hyperkalemia; N18.30 Chronic kidney disease, stage 3 unspecified; Z99.81 Dependence on supplemental oxygen; Z20.822 Contact with and (suspected) exposure to COVID-19; Z87.891 Personal history of nicotine dependence; Z88.8 Allergy status to other drugs, medicaments and biological substances; Z79.4 Long term (current) use of insulin; Z79.82 Long term (current) use of aspirin; Z79.899 Other long term (current) drug therapy
CPT/HCPCS: 0241U; 36415; 71045; 80048; 80053; 81003; 82607; 82746; 82803; 82947; 83036; 83605; 83735; 83880; 84145; 84484; 85025; 85027; 86140; 87040; 93005; 93970; 97110; 97162; 97530; 99285; J0696; J1650; J3370; J3475

== ENCOUNTER → 2022-08-11 10:42 | Outpatient (BNVA) | payer OTHER, MEDICARE, SELFPAY | PROVIDERS: PCP Internal Medicine; Referring Provider Internal Medicine; Visit Provider Internal Medicine | DX: I25.10 Atherosclerotic heart disease of native coronary artery without angina pectoris (principal); I42.9 Cardiomyopathy, unspecified | CPT/HCPCS: 99212 ==

== ENCOUNTER 2022-12-30 11:13 | Emergency (ER) | payer OTHER, SELFPAY ==
--- NOTE | 2022-12-30 12:42 | ED_ITS ---
HPI - General Adult General Chief complaint: General Medical Stated complaint: HYPERGLYCEMIA 427 Time Seen by Provider: 12/30/22 17:11 Source: patient and family Mode of arrival: wheelchair Limitations: no limitations History of Present Illness HPI narrative: 67 yo male with history of DM, PTSD, COPD, and bilateral all finger amputations?here with concern for high blood sugars the last few days despite taking his medications. Patient states he has been compliant with his humalog and lantus with no missed doses. States I have been eating a lot of carbs the last few days. Denies recent illnesses, chest pain.shortness of breath, fevers, chills, vomiting, diarrhea, Related Data Home Medications Medication Instructions Recorded Confirmed aspirin 81 mg tablet,delayed 81 mg PO DAILY 04/04/21 08/11/22 release clonazepam 1 mg tablet 1 mg PO TID 04/04/21 08/11/22 insulin lispro 100 unit/mL 14 unit subcut TIDAC 04/04/21 08/11/22 subcutaneous pen acetaminophen 325 mg tablet 650 mg PO QID PRN Pain 03/05/22 08/11/22 insulin glargine 100 unit/mL (3 30 unit subcut BEDTIME 03/05/22 08/11/22 mL) subcutaneous pen (Lantus Solostar U-100 Insulin) lidocaine 5 % topical patch 1 patch topical DAILY 03/05/22 08/11/22 docusate sodium 100 mg capsule 100 mg PO BID PRN Constipation 03/21/22 08/11/22 multivitamin 1 tab PO DAILY 03/21/22 08/11/22 Lactobacillus acidophilus 1 1,000 mmu cells PO DAILY 08/11/22 billion cell capsule atorvastatin 80 mg tablet 40 mg PO BEDTIME 08/11/22 cholecalciferol (vitamin D3) 25 50 mcg PO DAILY 08/11/22 mcg (1,000 unit) tablet empagliflozin 25 mg tablet 25 mg PO DAILY 08/11/22 08/11/22 furosemide 20 mg tablet 20 mg PO DAILY PRN weight gain 08/11/22 hydroxyzine pamoate 25 mg capsule 25 mg PO BID PRN 08/11/22 lamotrigine 100 mg tablet 100 mg PO DAILY 08/11/22 lisinopril 10 mg tablet 10 mg PO DAILY 08/11/22 mirtazapine 30 mg tablet 30 mg PO .COMPLEX 08/11/22 olanzapine 15 mg tablet 30 mg PO BEDTIME 08/11/22 omeprazole 20 mg capsule,delayed 20 mg PO DAILY 08/11/22 release Previous Rx's Medication Instructions Recorded magnesium oxide 400 mg (241.3 mg 800 mg PO BIDWM 30 days #120 tabs 03/24/22 magnesium) tablet carvedilol 3.125 mg tablet 3.125 mg PO BID 90 days #180 tabs 08/12/22 Allergies Allergy/AdvReac Type Severity Reaction Status Date / Time quetiapine [From Seroquel] Allergy Mild LEG Verified 12/30/22 13:01 SWELLING onion [Onion] AdvReac Unknown NAUSEA & Verified 12/30/22 13:01 VOMITING PEPPERS AdvReac Mild NAUSEA & Uncoded 12/30/22 13:01 VOMITING Review of Systems Review of Systems: Yes all other systems are reviewed and are negative Constitutional: Constitutional: Reports no additional constitutional complaints, Denies body ache(s), Denies chills, Denies fever(s), Denies headache(s) and Denies weakness Eyes: Eyes: Reports no additional eye complaints and Denies change in vision ENT: Reports system reviewed and no additional complaints, except as documented, Denies dizziness, Denies headache(s), Denies nasal congestion, Denies nasal discharge and Denies neck pain Cardiovascular: Cardiovascular: Reports no additional cardiovascular complaints, Denies chest pain, Denies leg edema and Denies dyspnea Respiratory: Respiratory: Reports no additional respiratory complaints, Denies cough and Denies dyspnea Gastrointestinal: Gastrointestinal: Reports no additional gastrointestinal complaints, Denies abdominal pain, Denies diarrhea, Denies nausea and Denies vomiting Genitourinary: Genitourinary: Denies urinary incontinence Musculoskeletal: Musculoskeletal: Reports no additional musculoskeletal complaints, Denies back pain, Denies arthralgias, Denies joint swelling, Denies neck pain, Denies numbness and Denies tingling Integumentary/Breasts: Skin/Breast: Reports system reviewed and no additional complaints, except as docu and Denies rash Neurologic: Reports system reviewed and no additional complaints, except as documented, Denies dizziness, Denies headache(s), Denies numbness, Denies tingling and Denies weakness [facility] Past Medical History Attestation statement: The following information was validated with the patient. Source: old records reviewed and nursing notes reviewed Medical History Anxiety Cardiomyopathy Coronary artery disease 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 Nephrolithiasis Neurogenic bladder NSTEMI (non-ST elevated myocardial infarction) Prostate cancer Sleep apnea Surgical History History of cardiac cath S/P cardiac cath Family History Family History Father CAD (coronary artery disease) Pacemaker Social History Social History Household Members: Family Housing: House Do you presently have visiting nurse or other home services: Yes Alcohol intake: never Patient Tobacco Use Status: Former Tobacco user Quit Date: 2022 Tobacco use type: Cigarette Smoked in Last 30 Days: No Second Hand Smoke Exposure: Yes Use of substances other than those prescribed or required for medical reasons: No Advance Directives: Yes Advance Directives on File: Yes Advance Directives Date on File: 04/12/21 service: Yes Current occupational status: disabled Physical Exam ED Vital Signs: Vital Signs - 24 hr 12/30/22 12:55 12/30/22 17:12 Temperature 97.5 F 97.7 F Pulse Rate 77 65 Respiratory Rate 16 16 Blood Pressure 106/57 L 130/63 Pulse Oximetry 99 98 Oxygen Delivery Method Room Air Room Air BMI result Body Mass Index 35.1 Const General: cooperative, healthy appearing and alert Orientation/consciousness: patient oriented x3 Limitations: no limitations [facility] Head: Yes normal to inspection Ears: hearing grossly normal bilaterally Eyes General: appearance normal, both eyes and all related structures Pupils: Equal, round and reactive pupils present Neck Neck: Yes normal visual inspection, Yes full ROM, Yes no lymphadenopathy and Yes no meningeal signs Chest Chest palpation & inspection: normal inspection of the chest Resp Effort & Inspection: normal respiratory effort Auscultation: clear to auscultation bilaterally Cardio Rate: regular rate Rhythm: regular rhythm Peripheral pulses: Peripheral pulses 2+ throughout GI Inspection: Yes normal to inspection Palpation (GI): Soft to palpation and nontender General: Yes no CVA tenderness Back/Spine/Pelvis Back: no CVA tenderness Thoracic/Lumbar Spine: thoracic and lumbar spine normal to inspection Skin General skin exam: no rashes or lesions noted Neuro General: patient oriented x3, moves all extremities and no meningeal signs Cranial nerves: Yes Equal, round and reactive pupils present Cognition (Neuro): normal cognition Extrem Other: Bilateral LE swellinng-non pitting with chronic vascular changes with no TTP Normal distal pulses bilaterally Normal sensation Course Course Course Narrative: This is a rapid medical exam: Additional HPI, ROS, PE not included below will be deferred to primary provider. Patient is a 67-year-old male with history of DM, cardiomyopathy, CAD, s/p cardiac cath, malignant neoplasm of bladder, STEMI, and sleep apnea presenting to the emergency department with with complaint of elevated blood glucose levels this morning. Around 6:30 this am, glucose was 525, gave 14 units Humalog insulin and rechecked, only came down to 521. Patient admits to eating chocolate chip pancakes with maple syrup last night. Patient has had minor abrasion to left lower leg, states has been applying antibacterial ointment, wound does not appear infected. He denies ot her complaints. Plan: labs, UA Reevaluation(s) Reevaluation #1: I reviewed his labs from triage which show a blood sugar of 234 with no evidence of DKA. His creatinine is 2.07 and his BUN is 24. His previous creatinine is 1.44, BUN 17 however this is from 03/2022. No more recent labs available for review. I reviewed this but the patient. I would recommend that we obtain a urine sample, CT scan of the abdomen and pelvis as patient tells me he has a history of a kidney stone. I would also recommend giving him some IV fluids and rechecking his kidney function. If his kidney function continues to increase or if he has of any other finding on imaging he may need to be admitted for further management. Patient is refusing at urine sample, refusing CT scan, refusing IV fluids, repeat labs, possible admission. He is alert and oriented x3. He is aware that if untreated worsening renal function can be irreversible, lead to electrolyte abnormalities, cardiac arrhythmias, . I did ask if I could speak to his wi fe on the phone and reviewed this with her but he does not want me to. Medical Decision Making Medical Decision Making MDM Narrative: 67yo male with history DM, PTSD, COPD, and bilateral all finger amputations?here with concern for high blood sugar at home the last few days. Per patient at 06:30 this morning the patient's blood sugar was 525. He gave himself 14 units of Humalog and it was still elevated 1 hour later prompting him to come into the ER for further evaluation. He reports he has been compliant with all of his medications. He does report that he has had been eating more carbs in the last few days and has not been diabetic diet compliant. He denies any recent illnesses. He has no physical complaints. He denies any recent changes in his diabetic medications. On exam patient is alert oriented. He has no physical complaints. Will obtain labs, UA. Differential Diagnosis Differential Diagnoses: The differential diagnosis associated with the presentation includes hyperglycemia, dka. non compliance of medication Low concern for UTI/PNA, ACS Admission/Observation Consideration of admission/observation: Escalation of care including admission/observation considered see course of care Lab Data MDM Lab Attestation statement: I reviewed the patient's lab results. see course of care 12/30/22 14:52 12/30/22 14:52 Labs: Lab Results 12/30/22 12/30/22 12/30/22 Range/Units 14:52 14:52 17:41 WBC 7.9 (4.8-10.8) X10*3/uL RBC 4.36 L (4.60-5.80) X10*6/uL Hgb 12.7 L (14.0-18.0) g/dl Hct 37.5 L (42.0-52.0) % MCV 86.0 (80.0-98.0) fL MCH 29.1 (27.0-33.0) pg MCHC 33.9 (31.0-36.0) g/dl RDW 12.8 (11.0-16.0) % Plt Count 172 D (160-400) X10*3/uL MPV 10.2 (9.4-12.4) fL Immature Gran % (Auto) 0.3 (0.0-0.4) % Neut % (Auto) 60.2 (45-73) % Lymph % (Auto) 26.4 (20-40) % [place] % (Auto) 7.8 (2-11) % Eos % (Auto) 4.9 H (0-4) % Baso % (Auto) 0.4 (0-2) % Lymph # (Auto) 2.1 (1.2-4.9) X10*3/uL [place] # (Auto) 0.6 (0.1-1.2) X10*3/uL Eos # (Auto) 0.4 (0.0-0.4) X10*3/uL Baso # (Auto) 0.0 (0.0-0.2) X10*3/uL Abs Immat Gran (auto) 0.02 (0.00-0.03) X10*3/uL Absolute Neuts (auto) 4.8 (2.0-8.3) x10*3/uL Absolute Nucleated RBC 0.000 (0.0-0.012) X10*3/uL Nucleated RBC % (auto) 0.0 (0.0-0.2) /100WBC Sodium 135 (135-145) mmol/L Potassium 4.4 (3.3-5.1) mmol/L Chloride 105 (96-108) mmol/L Carbon Dioxide 23 (22-29) mmol/L Anion Gap 11 L (12-20) BUN 24 H (9-16) mg/dL Creatinine 2.07 H (0.5-1.4) mg/dL Estim Creat Clear Calc 42.0 Estimated GFR 32 POC Glucose 192 H (60-115) mg/dL Random Glucose 234 H (60-115) mg/dL Calcium 10.2 D (8.4-10.2) mg/dL Total Bilirubin 0.3 (0.0-1.0) mg/dL AST 21 (5-37) U/L ALT 27 (0-40) U/L Alkaline Phosphatase 115 (39-117) U/L Total Protein 7.4 (6.5-8.0) g/dL Albumin 4.0 (3.5-5.0) g/dL Tests considered The following testing was considered but not selected: see course of care=ct a/p Discharge Plan Discharge Clinical Impression: Hyperglycemia, Acute on chronic kidney failure Patient Disposition: Left Against Medical Advice Instructions: Against Medical Advice (ED), Diabetic Hyperglycemia (ED) Additional Instructions: Your blood work showed your blood sugars 234. Your labs also show that your kidney function is worsened from the previous labs that we have from March of 2022. We do not have anything else more recent then this. We did recommend that you have a CT scan of your abdomen and pelvis as well as urinalysis. You declined this. You are welcome to return any time Prescriptions: No Action atorvastatin 80 mg tablet 40 mg PO BEDTIME furosemide 20 mg tablet 20 mg PO DAILY PRN (Reason: weight gain) Rx Instructions: one tab as needed for wt gain 3+ lbs in 24 hours or 5 lbs in one week lisinopril 10 mg tablet 10 mg PO DAILY omeprazole 20 mg capsule,delayed release(DR/EC) 20 mg PO DAILY cholecalciferol (vitamin D3) 25 mcg (1,000 unit) tablet 50 mcg PO DAILY lamotrigine 100 mg tablet 100 mg PO DAILY olanzapine 15 mg tablet 30 mg PO BEDTIME mirtazapine 30 mg tablet 30 mg PO .COMPLEX Rx Instructions: 30 mg orally one tab in the evening and 1/2 tab QHS; hydroxyzine pamoate 25 mg capsule 25 mg PO BID PRN Lactobacillus acidophilus 1 billion cell capsule 1,000 mmu cells PO DAILY carvedilol 3.125 mg tablet 3.125 mg PO BID 90 Days Qty: 180 3RF Rx Instructions: must administer with a meal/food clonazepam 1 mg Tablet 1 mg PO TID aspirin 81 mg Tablet,Delayed Release (Dr/Ec) 81 mg PO DAILY insulin lispro 100 unit/mL Insulin Pen 14 unit SUBCUT TIDAC Hold Instructions: monitor blood sugar before meals and at night call to schedule follow up with PCP acetaminophen 325 mg Tablet 650 mg PO QID PRN (Reason: Pain) lidocaine 5 % Adhesive Patch,Medicated 1 patch TOPICAL DAILY Rx Instructions: leave on most painful area for up to 12 hrs insulin glargine [Lantus Solostar U-100 Insulin] 100 unit/mL (3 mL) Insulin Pen 30 unit SUBCUT BEDTIME multivitamin Tablet 1 tab PO DAILY docusate sodium 100 mg Capsule 100 mg PO BID PRN (Reason: Constipation) magnesium oxide 400 mg (241.3 mg magnesium) Tablet 800 mg PO BIDWM 30 Days Qty: 120 0RF empagliflozin 25 mg tablet 25 mg PO DAILY Referrals: Physician,Unknown J [Primary Care Provider] - 2 days Stand Alone Forms: Against Medical Advice Interventions: ED Discharge Assessment Last Done: 08/25/23 18:40 Discharge Date/Time: 12/30/22 18:43
[2022-12-30 12:55] VITALS: BP 106/57; PULSE 77; RESP 16; TEMP 36.4; O2SAT 99; BMI 35.1
[2022-12-30 14:56] LABS: MANUAL DIFF FLAG NO
[2022-12-30 15:03] LABS: Basophils Percent Auto 0.4 % (0-2); Eosinophils Absolute Auto 0.4 X10*3/uL (0.0-0.4); Eosinophils Percent Auto 4.9 % (0-4); Hematocrit 37.5 % (42.0-52.0); Hemoglobin 12.7 g/dl (14.0-18.0); Imm Gran Abs Auto 0.02 X10*3/uL (0.00-0.03); Imm Gran Pct Auto 0.3 % (0.0-0.4); Lymphocytes Absolute Auto 2.1 X10*3/uL (1.2-4.9); Lymphocytes Percent Auto 26.4 % (20-40); Mean Corpuscular HGB Conc 33.9 g/dl (31.0-36.0); Mean Corpuscular Hemoglobin 29.1 pg (27.0-33.0); Mean Platelet Volume 10.2 fL (9.4-12.4); Monocytes Absolute Auto 0.6 X10*3/uL (0.1-1.2); Monocytes Percent Auto 7.8 % (2-11); Neutrophils Absolute Auto 4.8 x10*3/uL (2.0-8.3); Neutrophils Percent Auto 60.2 % (45-73); Platelet Count 172 X10*3/uL (160-400); Red Blood Count 4.36 X10*6/uL (4.60-5.80); Red Cell Distribution Width 12.8 % (11.0-16.0); White Blood Count 7.9 X10*3/uL (4.8-10.8)
[2022-12-30 15:16] LABS: Alanine Aminotransferase 27 U/L (0-40); Alkaline Phosphatase 115 U/L (39-117); Anion Gap 11 (12-20); Aspartate Amino Transferase 21 U/L (5-37); Bilirubin Total 0.3 mg/dL (0.0-1.0); Blood Urea Nitrogen 24 mg/dL (9-16); Calcium 10.2 mg/dL (8.4-10.2); Carbon Dioxide 23 mmol/L (22-29); Chloride 105 mmol/L (96-108); Estimated Glomerular Filt Rate 32; Glucose Random 234 mg/dL (60-115); Potassium 4.4 mmol/L (3.3-5.1); Sodium 135 mmol/L (135-145); Total Protein 7.4 g/dL (6.5-8.0)
[2022-12-30 17:12] VITALS: BP 130/63; PULSE 65; RESP 16; TEMP 36.5; O2SAT 98
[2022-12-30 17:45] LABS: Glucose, Whole Blood 192 mg/dL (60-115)
== END 2022-12-30 18:43 | disposition left against medical advice (07) ==
PROVIDERS: Registered Nurse Emergency; Emergency Provider Emergency Medicine
DX: E11.65 Type 2 diabetes mellitus with hyperglycemia (principal); Z79.899 Other long term (current) drug therapy; Z87.891 Personal history of nicotine dependence; Z79.4 Long term (current) use of insulin
CPT/HCPCS: 36415; 80053; 82947; 85025; 99283; 99284

== ENCOUNTER 2023-01-24 10:53 | Emergency (ER) | payer OTHER, SELFPAY ==
[2023-01-24] VITALS (7 sets, daily range): BP systolic 126–142; BP diastolic 63–73; PULSE 76–89; RESP 15–22; TEMP 36.3–36.6; O2SAT 97–100; BMI 34.0
--- NOTE | ~2023-01-24 | CT_ITS ---
EXAMINATION: CT PELVIS WITHOUT CONTRAST CLINICAL INFORMATION: Pain after fall COMPARISON: Previous x-ray from earlier the same day and CT of the abdomen and pelvis October 2021 TECHNIQUE: Helical scanning was performed with submillimeter collimation through the pelvis. Sagittal and coronal multiplanar 2-D reconstructions were obtained. This CT examination was performed using dose optimization techniques as appropriate, variously including the following: *Automated exposure control *Adjustment of mA and/or kV according to patient size (this includes techniques or standardized protocols for targeted exams where dose is matched to indication/reason for exam; i.e. extremities or head) *Use of iterative reconstruction technique DLP: 640 mGy-cm FINDINGS: There is a moderate L4 vertebral body compression fracture. This is similar-appearing to October [address] scan. No acute fracture or dislocation. There is mild arthritis at both hip joints. No hip joint effusion. Bones of the pelvis are normal. The sacroiliac joints and pubic symphysis are normal. There is atherosclerotic disease. Left common iliac artery stent. There are radiation seeds in the prostate. CT/CT pelvis wo IV con IMPRESSION: No acute fracture or dislocation. Moderate L4 vertebral body compression fractures similar to previous CT October 2021
--- NOTE | ~2023-01-24 | XR_ITS ---
EXAMINATION: XR HIP, RIGHT, AP PELVIS CLINICAL INFORMATION: Pain after fall COMPARISON: None available. TECHNIQUE: Two views of the right hip, AP pelvis. FINDINGS: Bony pelvis is intact. No fracture or dislocation. SI joints within normal limits. No significant hip joint narrowings. Vascular calcifications. Left iliac stents. Prostate seeds. XR/XR hip RT min 2V IMPRESSION: No acute bony pathology.
--- NOTE | 2023-01-24 11:05 | ED_ITS ---
HPI - Extremity Injury (Lower) General Chief Complaint: Fall Stated Complaint: R Leg Hip Pain S/P Fall 01/19/23 Time Seen by Provider: 01/24/23 13:19 Source: patient and family Mode of arrival: wheelchair Limitations: no limitations History of Present Illness HPI Narrative: Patient comes to the emergency room accompanied by his . Approximately 1 week ago, patient fell. Patient states he was walking in the bathroom, lost his balance, tried to stop himself with his hand but leaned over the shower curtain and fell into the bathtub. Patient states that he landed on the right side of his body hurting his hip. For about a week, patient has been complaining of hip pain and the pain is getting worse. Patient states that mostly he uses a wheelchair, occasionally he is able to walk, but since the fall he has been unable to bear any weight on the right leg. Patient denies any headache head injury neck pain. Patient denies being on blood thinners. Related Data Home Medications Medication Instructions Recorded Confirmed aspirin 81 mg tablet,delayed 81 mg PO DAILY 04/04/21 08/11/22 release clonazepam 1 mg tablet 1 mg PO TID 04/04/21 08/11/22 insulin lispro 100 unit/mL 14 unit subcut TIDAC 04/04/21 08/11/22 subcutaneous pen acetaminophen 325 mg tablet 650 mg PO QID PRN Pain 03/05/22 08/11/22 insulin glargine 100 unit/mL (3 30 unit subcut BEDTIME 03/05/22 08/11/22 mL) subcutaneous pen (Lantus Solostar U-100 Insulin) lidocaine 5 % topical patch 1 patch topical DAILY 03/05/22 08/11/22 docusate sodium 100 mg capsule 100 mg PO BID PRN Constipation 03/21/22 08/11/22 multivitamin 1 tab PO DAILY 03/21/22 08/11/22 Lactobacillus acidophilus 1 1,000 mmu cells PO DAILY 08/11/22 billion cell capsule atorvastatin 80 mg tablet 40 mg PO BEDTIME 08/11/22 cholecalciferol (vitamin D3) 25 50 mcg PO DAILY 08/11/22 mcg (1,000 unit) tablet empagliflozin 25 mg tablet 25 mg PO DAILY 08/11/22 08/11/22 furosemide 20 mg tablet 20 mg PO DAILY PRN weight gain 08/11/22 hydroxyzine pamoate 25 mg capsule 25 mg PO BID PRN 08/11/22 lamotrigine 100 mg tablet 100 mg PO DAILY 08/11/22 lisinopril 10 mg tablet 10 mg PO DAILY 08/11/22 mirtazapine 30 mg tablet 30 mg PO .COMPLEX 08/11/22 olanzapine 15 mg tablet 30 mg PO BEDTIME 08/11/22 omeprazole 20 mg capsule,delayed 20 mg PO DAILY 08/11/22 release Previous Rx's Medication Instructions Recorded magnesium oxide 400 mg (241.3 mg 800 mg (2 x 400 mg (241.3 mg 03/24/22 magnesium) tablet magnesium)) PO BIDWM 30 days #120 tabs carvedilol 3.125 mg tablet 3.125 mg PO BID 90 days #180 tabs 08/12/22 oxycodone 5 mg tablet 5 mg PO BID PRN pain #7 tabs 01/24/23 Allergies Allergy/AdvReac Type Severity Reaction Status Date / Time quetiapine [From Seroquel] Allergy Mild LEG Verified 12/30/22 13:01 SWELLING onion [Onion] AdvReac Unknown NAUSEA & Verified 12/30/22 13:01 VOMITING PEPPERS AdvReac Mild NAUSEA & Uncoded 12/30/22 13:01 VOMITING Review of Systems 2 Review of Systems: Constitutional : No Weight loss, No Fever, No Chills, No Night Sweats, No Fatigue, No Malaise ENT/Mouth : No Hearing loss, No Ear Pain, No Nasal Congestion, No Sinus Pain, No Hoarseness, No sore throat, No Rhinorrhea, No Swallowing Difficulty Eyes: No Eye Pain, No Swelling, No Redness, No Foreign Body, No Discharge, No Vision Changes Cardiovascular : No Chest Pain, No SOB, No Dyspnea on Exertion, No Orthopnea, No Edema, No Palpitations Respiratory : No Cough, No Sputum, No Wheezing, No Smoke Exposure, No Dyspnea Gastrointestinal : No Nausea, No Vomiting, No Diarrhea, No Constipation, No abdominal Pain, No Hematochezia, No Melena Genitourinary : no irregular bleeding, No Dysuria, No Urinary Frequency, No Hematuria, No Urinary Incontinence, No Urgency, No Flank Pain, No Urinary Flow Changes, No Hesitancy Musculoskeletal : Complaining of worsening right-sided hip pain after a fall, No Myalgias, No Joint Swelling Skin : No Skin Lesions, No rash Neuro : No Weakness, No Numbness, No Paresthesias, No Loss of Consciousness, No Dizziness, No Headache Psych : No Anxiety/Panic, No Depression, No SI/HI/AH/VH, No Social Issues, Heme/Lymph: No Bruising, No Bleeding,No Lymphadenopathy Endocrine : No Polyuria, No Polydipsia, No Temperature Intolerance [facility] Past Medical History Medical History Anxiety Coronary artery disease NSTEMI (non-ST elevated myocardial infarction) Cardiomyopathy Sleep apnea Mini stroke Nephrolithiasis Neurogenic bladder Malignant neoplasm of overlapping sites of bladder Prostate cancer Surgical History S/P cardiac cath History of cardiac cath Family History Family History Father CAD (coronary artery disease) Pacemaker Social History Social History Household Members: Family Housing: House Do you presently have visiting nurse or other home services: Yes Alcohol intake: never Patient Tobacco Use Status: Former Tobacco user Quit Date: 2022 Tobacco use type: Cigarette Second Hand Smoke Exposure: Yes Advance Directives: Yes Advance Directives on File: Yes Advance Directives Date on File: 04/12/21 service: Yes Current occupational status: disabled Physical Exam 2 Vital Signs: Vital Signs: Last Vital Signs Temp 97.6 F 01/24/23 15:36 Pulse 77 01/24/23 16:19 Resp 18 01/24/23 16:19 BP 126/63 01/24/23 15:36 Pulse Ox 99 01/24/23 15:36 O2 Del Method Room Air 01/24/23 15:36 BMI result Body Mass Index 34.0 Const: Other: Appearance: Alert. Oriented X3. No acute distress. Eyes: Pupils equal, round and reactive to light. ENT: Pharynx normal. Neck: Normal inspection. Neck supple. No lymph nodes noted. No crepitus CVS: Normal heart rate and rhythm. Pulses normal. Normal S1 and S2 Respiratory: No respiratory distress. Breath sounds normal. No Wheezing. No rales Abdomen: Soft and nontender. No rigidity. No distention. Skin: Skin warm and dry. Normal skin color. Normal skin turgor. Extremities: Patient unable to flex or extend the hip on the right side, no ecchymosis Neuro: Oriented X 3. No motor deficit. No sensory deficit. Moving all extremities. No slurred speech. CN 2 through 12 grossly intact Psych: calm, cooperative, normal affect Course Course Course Narrative: This is an RME: Additional HPI, ROS, PE not included below will be deferred to primary provider. This is a 67 [id number], with a hx of DM, PTSD, COPD, and bilateral all finger amputations, presenting to the ER with complaints of right leg pain x 1 week. He was walking down a hallway and lost his balance because of his neuropathy and fell into a shower stall. He struck his head and landed onto his right hip. No LOC. No headache, dizziness, blurred vision. He uses a walker at home, and wheelchair when he is out in public. Hes reporting no pain today, but worsens with movement and with palpation and with weight bearing. VSS Plan: XR right hip ordered. Labs are also ordered. 1221 - I received a critical lab of a potassium 6.4 and a glucose 402. Informed charge nurse, will try to get room in main ER promptly. Medications Administered Discontinued Medications Generic Name Dose Route Start Last Admin Trade Name Summer PRN Reason Stop Dose Admin Albuterol Sulfate 5 mg 01/24/23 14:31 01/24/23 16:17 Albuterol Sulfate (0.083%) 2.5 Mg/3 Ml Vial.Neb INHALE 01/24/23 14:32 5 mg ONCE ONE Administration Sodium Chloride 1,000 mls @ 999 mls/hr 01/24/23 14:18 01/24/23 15:34 Ns IVCONT 01/24/23 15:18 Infused .Q1H1M ONE Infusion Calcium Gluconate 2 gm in 100 mls @ 50 mls/hr 01/24/23 14:29 01/24/23 17:48 Calcium Gluconate IV 01/24/23 16:28 Infused ONCE ONE Infusion Insulin Human Regular 10 unit 01/24/23 14:18 01/24/23 14:31 Insulin Regular, Human 100 Unit/Ml 3 Ml Vial IVPUSH 01/24/23 14:19 10 unit ONCE ONE Administration Medical Decision Making Medical Decision Making MDM Narrative: -my interpretation of labs: Potassium 6.4, we will repeated, if elevated we will go ahead and treat. Patient asymptomatic -imaging of the hip pending -patient has a glucose of 402, patient receiving IV fluids and 10 units of insulin. -my interpretation of x-ray of the hip: No obvious fracture. -confirm potassium elevation of 6.1, patient receiving 10 units of insulin and fluids to help both hyperglycemia and hyperkalemia. Also patient receiving IV calcium gluconate and albuterol neb -I discussed the x-ray findings with the patient and his , no fracture. However, patient is unable to bear weight, we will proceed with a CT scan. -my interpretation a CT scan of the pelvis, no fracture. Radiology report, no fracture -patient's potassium improved, now normal, 4.5 -I offered to the patient and his case management/PT eval. Both declined, patient is in a wheelchair and would like to be going home. Differential Diagnosis Differential Diagnoses: The differential diagnosis associated with the presentation includes (Hip contusion, dislocation, fracture) Admission/Observation Consideration of admission/observation: Escalation of care including admission/observation considered (Is possible the patient may have a fracture hip, admission considered) Lab Data [facility] Lab Attestation statement: I reviewed the patient's lab results. 01/24/23 11:49 01/24/23 18:02 Labs: Lab Results 01/24/23 01/24/23 01/24/23 Range/Units 11:49 12:54 13:09 WBC 6.8 (4.8-10.8) X10*3/uL RBC 4.62 (4.60-5.80) X10*6/uL Hgb 13.5 L (14.0-18.0) g/dl Hct 41.2 L (42.0-52.0) % MCV 89.2 (80.0-98.0) fL MCH 29.2 (27.0-33.0) pg MCHC 32.8 (31.0-36.0) g/dl RDW 12.6 (11.0-16.0) % Plt Count 179 (160-400) X10*3/uL MPV 10.0 (9.4-12.4) fL Immature Gran % (Auto) 0.3 (0.0-0.4) % Neut % (Auto) 66.4 (45-73) % Lymph % (Auto) 22.0 (20-40) % [place] % (Auto) 6.2 (2-11) % Eos % (Auto) 4.7 H (0-4) % Baso % (Auto) 0.4 (0-2) % Lymph # (Auto) 1.5 (1.2-4.9) X10*3/uL [place] # (Auto) 0.4 (0.1-1.2) X10*3/uL Eos # (Auto) 0.3 (0.0-0.4) X10*3/uL Baso # (Auto) 0.0 (0.0-0.2) X10*3/uL Abs Immat Gran (auto) 0.02 (0.00-0.03) X10*3/uL Absolute Neuts (auto) 4.5 (2.0-8.3) x10*3/uL Absolute Nucleated RBC 0.000 (0.0-0.012) X10*3/uL Nucleated RBC % (auto) 0.0 (0.0-0.2) /100WBC VBG pH 7.41 (7.32-7.43) VBG pCO2 26 mmHg VBG pO2 169 mmHg VBG HCO3 17 L (22-26) mmol/L VBG O2 Saturation 99.0 % VBG Base Excess -5.7 mmol/L Sodium 132 L (135-145) mmol/L Potassium 6.4 H* D (3.3-5.1) mmol/L Chloride 109 H (96-108) mmol/L Carbon Dioxide 19 L (22-29) mmol/L Anion Gap 10 L (12-20) BUN 19 H (9-16) mg/dL Creatinine 1.89 H (0.5-1.4) mg/dL Estim Creat Clear Calc 43.9 Estimated GFR 36 Random Glucose 402 H* (60-115) mg/dL Calcium 9.6 (8.4-10.2) mg/dL Magnesium 1.7 (1.6-2.6) mg/dL Total Bilirubin 0.2 (0.0-1.0) mg/dL Direct Bilirubin < 0.2 (0.0-0.5) mg/dL AST 24 (5-37) U/L ALT 32 (0-40) U/L Alkaline Phosphatase 117 (39-117) U/L Total Creatine Kinase 35 L (38-174) U/L Total Protein 7.0 (6.5-8.0) g/dL Albumin 3.8 (3.5-5.0) g/dL Beta-Hydroxybutyrate 0.09 (0.02-0.27) mmol/L 01/24/23 01/24/23 Range/Units 13:55 18:02 WBC (4.8-10.8) X10*3/uL RBC (4.60-5.80) X10*6/uL Hgb (14.0-18.0) g/dl Hct (42.0-52.0) % MCV (80.0-98.0) fL MCH (27.0-33.0) pg MCHC (31.0-36.0) g/dl RDW (11.0-16.0) % Plt Count (160-400) X10*3/uL MPV (9.4-12.4) fL Immature Gran % (Auto) (0.0-0.4) % Neut % (Auto) (45-73) % Lymph % (Auto) (20-40) % [place] % (Auto) (2-11) % Eos % (Auto) (0-4) % Baso % (Auto) (0-2) % Lymph # (Auto) (1.2-4.9) X10*3/uL [place] # (Auto) (0.1-1.2) X10*3/uL Eos # (Auto) (0.0-0.4) X10*3/uL Baso # (Auto) (0.0-0.2) X10*3/uL Abs Immat Gran (auto) (0.00-0.03) X10*3/uL Absolute Neuts (auto) (2.0-8.3) x10*3/uL Absolute Nucleated RBC (0.0-0.012) X10*3/uL Nucleated RBC % (auto) (0.0-0.2) /100WBC VBG pH (7.32-7.43) VBG pCO2 mmHg VBG pO2 mmHg VBG HCO3 (22-26) mmol/L VBG O2 Saturation % VBG Base Excess mmol/L Sodium (135-145) mmol/L Potassium 6.1 H* 4.5 D (3.3-5.1) mmol/L Chloride (96-108) mmol/L Carbon Dioxide (22-29) mmol/L Anion Gap (12-20) BUN (9-16) mg/dL Creatinine (0.5-1.4) mg/dL Estim Creat Clear Calc Estimated GFR Random Glucose (60-115) mg/dL Calcium (8.4-10.2) mg/dL Magnesium (1.6-2.6) mg/dL Total Bilirubin (0.0-1.0) mg/dL Direct Bilirubin (0.0-0.5) mg/dL AST (5-37) U/L ALT (0-40) U/L Alkaline Phosphatase (39-117) U/L Total Creatine Kinase (38-174) U/L Total Protein (6.5-8.0) g/dL Albumin (3.5-5.0) g/dL Beta-Hydroxybutyrate (0.02-0.27) mmol/L Independent Interpretation I performed an independent interpretation of an: Plain X-Ray and CT Scan Radiology Impression Discussion of test interpretation with radiology: I have reviewed the radiologist's reading. Radiologist Impression: FINDINGS: There is a moderate L4 vertebral body compression fracture. This is similar-appearing to October [address] scan. No acute fracture or dislocation. There is mild arthritis at both hip joints. No hip joint effusion. Bones of the pelvis are normal. The sacroiliac joints and pubic symphysis are normal. There is atherosclerotic disease. Left common iliac artery stent. There are radiation seeds in the prostate. CT/CT pelvis wo IV con IMPRESSION: No acute fracture or dislocation. Moderate L4 vertebral body compression fractures similar to previous CT October 2021 Independent Historian Clinical information obtained from an independent historian. History obtained from or confirmed by: Spouse External Record Review External record reviewed: Prior outpatient labs Critical Care Time Critical Care Time Critical Care Time: Yes Total Critical Care Time: 75 Attestation: I have personally provided critical care time. Time includes review of lab data, radiology results, discussion with consultants, and monitoring for potential decompensation. Intervention performed as documented. Discharge Plan Discharge Clinical Impression: Acute hyperglycemia, Acute hyperkalemia, Contusion of hip Patient Disposition: Home, Self-Care Instructions: Hyperkalemia (ED), Diabetic Hyperglycemia (ED), Hip Contusion (ED) Additional Instructions: Please follow-up with your primary care physician tomorrow. If you have any worsening or new symptoms, please return to the emergency room or call 911 Prescriptions: New oxycodone 5 mg tablet 5 mg PO BID PRN (Reason: pain) Qty: 7 0RF Rx Instructions: Partial Fill upon patient request. No Action atorvastatin 80 mg tablet 40 mg PO BEDTIME furosemide 20 mg tablet 20 mg PO DAILY PRN (Reason: weight gain) Rx Instructions: one tab as needed for wt gain 3+ lbs in 24 hours or 5 lbs in one week lisinopril 10 mg tablet 10 mg PO DAILY omeprazole 20 mg capsule,delayed release(DR/EC) 20 mg PO DAILY cholecalciferol (vitamin D3) 25 mcg (1,000 unit) tablet 50 mcg PO DAILY lamotrigine 100 mg tablet 100 mg PO DAILY olanzapine 15 mg tablet 30 mg PO BEDTIME mirtazapine 30 mg tablet 30 mg PO .COMPLEX Rx Instructions: 30 mg orally one tab in the evening and 1/2 tab QHS; hydroxyzine pamoate 25 mg capsule 25 mg PO BID PRN Lactobacillus acidophilus 1 billion cell capsule 1,000 mmu cells PO DAILY carvedilol 3.125 mg tablet 3.125 mg PO BID 90 Days Qty: 180 3RF Rx Instructions: must administer with a meal/food clonazepam 1 mg Tablet 1 mg PO TID aspirin 81 mg Tablet,Delayed Release (Dr/Ec) 81 mg PO DAILY insulin lispro 100 unit/mL Insulin Pen 14 unit SUBCUT TIDAC Hold Instructions: monitor blood sugar before meals and at night call to schedule follow up with PCP acetaminophen 325 mg Tablet 650 mg PO QID PRN (Reason: Pain) lidocaine 5 % Adhesive Patch,Medicated 1 patch TOPICAL DAILY Rx Instructions: leave on most painful area for up to 12 hrs insulin glargine [Lantus Solostar U-100 Insulin] 100 unit/mL (3 mL) Insulin Pen 30 unit SUBCUT BEDTIME multivitamin Tablet 1 tab PO DAILY docusate sodium 100 mg Capsule 100 mg PO BID PRN (Reason: Constipation) magnesium oxide 400 mg (241.3 mg magnesium) Tablet 800 mg PO BIDWM 30 Days Qty: 120 0RF empagliflozin 25 mg tablet 25 mg PO DAILY
[2023-01-24 11:53] LABS: MANUAL DIFF FLAG NO
[2023-01-24 11:55] LABS: Basophils Percent Auto 0.4 % (0-2); Eosinophils Absolute Auto 0.3 X10*3/uL (0.0-0.4); Eosinophils Percent Auto 4.7 % (0-4); Hematocrit 41.2 % (42.0-52.0); Hemoglobin 13.5 g/dl (14.0-18.0); Imm Gran Abs Auto 0.02 X10*3/uL (0.00-0.03); Imm Gran Pct Auto 0.3 % (0.0-0.4); Lymphocytes Absolute Auto 1.5 X10*3/uL (1.2-4.9); Mean Corpuscular HGB Conc 32.8 g/dl (31.0-36.0); Mean Corpuscular Hemoglobin 29.2 pg (27.0-33.0); Mean Corpuscular Volume 89.2 fL (80.0-98.0); Monocytes Absolute Auto 0.4 X10*3/uL (0.1-1.2); Monocytes Percent Auto 6.2 % (2-11); Neutrophils Absolute Auto 4.5 x10*3/uL (2.0-8.3); Neutrophils Percent Auto 66.4 % (45-73); Platelet Count 179 X10*3/uL (160-400); Red Blood Count 4.62 X10*6/uL (4.60-5.80); Red Cell Distribution Width 12.6 % (11.0-16.0); White Blood Count 6.8 X10*3/uL (4.8-10.8)
[2023-01-24 12:23] LABS: Alanine Aminotransferase 32 U/L (0-40); Albumin Level 3.8 g/dL (3.5-5.0); Alkaline Phosphatase 117 U/L (39-117); Anion Gap 10 (12-20); Aspartate Amino Transferase 24 U/L (5-37); Bilirubin Direct < 0.2 mg/dL (0.0-0.5); Bilirubin Total 0.2 mg/dL (0.0-1.0); Blood Urea Nitrogen 19 mg/dL (9-16); Calcium 9.6 mg/dL (8.4-10.2); Carbon Dioxide 19 mmol/L (22-29); Chloride 109 mmol/L (96-108); Creatinine Clr Calc Pharmacy 43.9; Estimated Glomerular Filt Rate 36; Glucose Random 402 mg/dL (60-115); Potassium 6.4 mmol/L (3.3-5.1); Sodium 132 mmol/L (135-145)
--- NOTE | 2023-01-24 12:28 | ECG_ITS ---
Test Reason : hyperkalemia Blood Pressure : / mmHG Vent. Rate : 085 BPM Atrial Rate : 085 BPM P-R Int : 202 ms QRS Dur : 136 ms QT Int : 404 ms P-R-T Axes : 039 031 014 degrees QTc Int : 480 ms Normal sinus rhythm Right bundle branch block Possible Inferior infarct (cited on or before 24-JAN-2023) Abnormal ECG When compared with ECG of 21-MAR-2022 14:35, No significant change was found Referred By: Janie Ferguson Electronically Signed By:LEONARDO HULL
[2023-01-24 12:56] LABS: Magnesium 1.7 mg/dL (1.6-2.6)
[2023-01-24 13:13] LABS: Venous Blood Gas Refer to POC result
[2023-01-24 13:13] LABS: VBG Base Excess -5.7 mmol/L; VBG HCO3 17 mmol/L (22-26); VBG pCO2 26 mmHg; VBG pH 7.41 (7.32-7.43); VBG pO2 169 mmHg
[2023-01-24 13:22] LABS: Beta-Hydroxybutyrate 0.09 mmol/L (0.02-0.27)
[2023-01-24 14:29] LABS: Potassium 6.1 mmol/L (3.3-5.1)
[2023-01-24] MEDS: 0.9 % Sodium Chloride 1,000 ML 999 ML IVCONT (14:31)
[2023-01-24] MEDS: Insulin Regular, Human 100 UNIT/ML 3 ML VIAL 10 UNIT IVPUSH (14:31)
--- NOTE | 2023-01-24 14:58 | PC.NURSE ---
unable to start calcium gluconate as unable to obtain pump; tech sent down to central supply.
[2023-01-24] MEDS: Calcium Gluconate/NaCl,Iso-Osm 2 GM/100 ML PLAST..BAG IV (15:41)
[2023-01-24] MEDS: Albuterol Sulfate (0.083%) 2.5 MG/3 ML VIAL.NEB 5 MG INHALE (16:17)
--- NOTE | 2023-01-24 16:20 | PC.NURSE ---
respiratory at bedside for albuterol tx.
[2023-01-24 18:22] LABS: Potassium 4.5 mmol/L (3.3-5.1)
[2023-01-24] MEDS: oxyCODONE HCl Immed Release 5 MG TABLET PO (18:58)
[2023-01-24 19:11] LABS: Glucose, Whole Blood 160 mg/dL (60-115)
== END 2023-01-24 19:24 | disposition home or self-care (01) ==
PROVIDERS: Physician Assistant; Physician Assistant Medical; Emergency Provider Emergency Medicine
DX: E11.65 Type 2 diabetes mellitus with hyperglycemia (principal); E87.5 Hyperkalemia; S70.01XA Contusion of right hip, initial encounter; W18.2XXA Fall in (into) shower or empty bathtub, initial encounter; Z85.46 Personal history of malignant neoplasm of prostate; Z87.891 Personal history of nicotine dependence; Z79.82 Long term (current) use of aspirin; Z79.4 Long term (current) use of insulin; Z79.899 Other long term (current) drug therapy; Y93.89 Activity, other specified; Y92.012 Bathroom of single-family (private) house as the place of occurrence of the external cause; Y99.9 Unspecified external cause status
CPT/HCPCS: 36415; 72192; 73502; 80048; 80076; 82010; 82550; 82803; 82947; 83735; 84132; 85025; 93005; 94640; 96361; 96365; 96366; 96375; 99284; 99285; J0613

== ENCOUNTER 2023-03-09 21:10 | Emergency (ER) | payer OTHER, SELFPAY ==
--- NOTE | ~2023-03-09 | XR_ITS ---
EXAMINATION: XR CHEST CLINICAL INFORMATION: Dyspnea COMPARISON: None available. TECHNIQUE: Frontal view of the chest was obtained. FINDINGS: No significant abnormality is noted involving the heart, lungs, mediastinum, bony thorax or soft tissues. XR/XR chest 1V IMPRESSION: Unremarkable chest examination.
[2023-03-09 21:17] VITALS: BMI 35.4
[2023-03-09 21:23] VITALS: BP 130/78; PULSE 98; RESP 18; TEMP 36.4; O2SAT 97
--- NOTE | 2023-03-09 21:35 | MHC.EDTECH ---
Patient inc and patient cleaned and repositioned
--- NOTE | 2023-03-09 22:11 | ECG_ITS ---
Test Reason : CHEST PAIN Blood Pressure : / mmHG Vent. Rate : 091 BPM Atrial Rate : 091 BPM P-R Int : 222 ms QRS Dur : 138 ms QT Int : 404 ms P-R-T Axes : 047 088 015 degrees QTc Int : 496 ms Sinus rhythm with 1st degree A-V block Right bundle branch block Abnormal ECG When compared with ECG of 24-JAN-2023 12:43, No significant change was found Referred By: Em Muñoz Electronically Signed By:ABISAI YOUNG MD
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
[2023-03-09 22:59] LABS: MANUAL DIFF FLAG NO
[2023-03-09 23:01] LABS: Basophils Percent Auto 0.3 % (0-2); Eosinophils Absolute Auto 0.3 X10*3/uL (0.0-0.4); Eosinophils Percent Auto 4.2 % (0-4); Hematocrit 35.1 % (42.0-52.0); Hemoglobin 11.5 g/dl (14.0-18.0); Imm Gran Abs Auto 0.02 X10*3/uL (0.00-0.03); Imm Gran Pct Auto 0.3 % (0.0-0.4); Lymphocytes Absolute Auto 2.1 X10*3/uL (1.2-4.9); Lymphocytes Percent Auto 27.2 % (20-40); Mean Corpuscular HGB Conc 32.8 g/dl (31.0-36.0); Mean Corpuscular Hemoglobin 28.8 pg (27.0-33.0); Mean Platelet Volume 10.4 fL (9.4-12.4); Monocytes Absolute Auto 0.3 X10*3/uL (0.1-1.2); Monocytes Percent Auto 4.3 % (2-11); Neutrophils Absolute Auto 4.9 x10*3/uL (2.0-8.3); Neutrophils Percent Auto 63.7 % (45-73); Platelet Count 157 X10*3/uL (160-400); Red Blood Count 3.99 X10*6/uL (4.60-5.80); Red Cell Distribution Width 13.6 % (11.0-16.0); White Blood Count 7.7 X10*3/uL (4.8-10.8)
[2023-03-09 23:19] LABS: Alanine Aminotransferase 21 U/L (0-40); Albumin Level 3.1 g/dL (3.5-5.0); Alkaline Phosphatase 162 U/L (39-117); Anion Gap 12 (12-20); Aspartate Amino Transferase 16 U/L (5-37); Bilirubin Total 0.2 mg/dL (0.0-1.0); Blood Urea Nitrogen 20 mg/dL (9-16); Calcium 9.3 mg/dL (8.4-10.2); Carbon Dioxide 22 mmol/L (22-29); Chloride 107 mmol/L (96-108); Creatinine Clr Calc Pharmacy 47.8; Estimated Glomerular Filt Rate 38; Glucose Random 423 mg/dL (60-115); Potassium 4.7 mmol/L (3.3-5.1); Sodium 136 mmol/L (135-145); Total Protein 5.8 g/dL (6.5-8.0)
[2023-03-09 23:20] LABS: B Type Natriuretic Peptide 122 pg/mL (<100)
[2023-03-09 23:44] VITALS: BP 125/63; PULSE 90; RESP 16; TEMP 36.6; O2SAT 96
[2023-03-10] MEDS: Furosemide 40 MG TABLET PO (00:37)
[2023-03-10] MEDS: Insulin Lispro 100 UNIT/ML 3 ML VIAL 8 UNIT SUBCUT (00:37)
--- NOTE | 2023-03-10 01:21 | MHC.EDTECH ---
call out to naima at 0121 to book transport for pt back home, estimated eta given was 0300
[2023-03-10 01:22] VITALS: BP 127/75; PULSE 93; RESP 16; TEMP 36.4; O2SAT 97
[2023-03-10 01:31] VITALS: BP 127/79; PULSE 103; RESP 20; TEMP 36.8; O2SAT 98
== END 2023-03-10 02:04 | disposition home or self-care (01) ==
PROVIDERS: Emergency Provider Student in an Organized Health Care Education/Training Program
DX: R06.02 Shortness of breath (principal); I50.9 Heart failure, unspecified; R07.89 Other chest pain; R05.9 Cough, unspecified; Z87.891 Personal history of nicotine dependence; Z79.899 Other long term (current) drug therapy
CPT/HCPCS: 36415; 71045; 80053; 83880; 85025; 93005; 99284

== ENCOUNTER 2023-03-24 10:46 | Emergency (ER) | payer OTHER, SELFPAY ==
--- NOTE | ~2023-03-24 | US_ITS ---
EXAMINATION: US VENOUS WITH DOPPLER UPPER EXTREMITY, LEFT CLINICAL INFORMATION: Left upper extremity swelling. COMPARISON: None available. TECHNIQUE: Ultrasound of the upper extremity is performed using compression sonography and color and pulse Doppler flow with assessment of augmentation of flow. There is also imaging and Doppler assessment of the jugular and subclavian veins. Spectral analysis with color-flow imaging is performed. FINDINGS: Respiratory variation, normal compression, and augmented flow are noted throughout the upper extremity including the axillary, brachial, cubital, and radial and ulnar veins. There is normal flow in the internal jugular and subclavian veins. There is no visible deep or superficial thrombophlebitis. US/US venous duplex UE LT IMPRESSION: No DVT demonstrated in the left upper extremity.
[2023-03-24 10:56] VITALS: BP 123/72; BP 135/61; PULSE 67; PULSE 80; RESP 18; TEMP 36.4; O2SAT 100; O2SAT 95; BMI 37.9
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
[2023-03-24 11:21] VITALS: BP 135/61; PULSE 67; RESP 18; TEMP 36.4; O2SAT 99
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
[2023-03-24 12:35] LABS: MANUAL DIFF FLAG NO
[2023-03-24 12:40] LABS: Basophils Percent Auto 0.3 % (0-2); Eosinophils Absolute Auto 0.3 X10*3/uL (0.0-0.4); Eosinophils Percent Auto 5.1 % (0-4); Hematocrit 34.2 % (42.0-52.0); Imm Gran Abs Auto 0.01 X10*3/uL (0.00-0.03); Imm Gran Pct Auto 0.2 % (0.0-0.4); Lymphocytes Absolute Auto 1.8 X10*3/uL (1.2-4.9); Mean Corpuscular HGB Conc 32.2 g/dl (31.0-36.0); Mean Corpuscular Hemoglobin 29.4 pg (27.0-33.0); Mean Corpuscular Volume 91.4 fL (80.0-98.0); Monocytes Absolute Auto 0.4 X10*3/uL (0.1-1.2); Monocytes Percent Auto 7.5 % (2-11); Neutrophils Absolute Auto 3.2 x10*3/uL (2.0-8.3); Neutrophils Percent Auto 55.9 % (45-73); Platelet Count 191 X10*3/uL (160-400); Red Blood Count 3.74 X10*6/uL (4.60-5.80); Red Cell Distribution Width 13.6 % (11.0-16.0); White Blood Count 5.7 X10*3/uL (4.8-10.8)
[2023-03-24 12:47] LABS: INTERNATIONAL NORM RATIO 1.1 (0.9-1.1); Prothrombin Time 13.2 SEC (11.1-13.3)
[2023-03-24 13:33] LABS: Anion Gap 11 (12-20); Blood Urea Nitrogen 31 mg/dL (9-16); Calcium 9.1 mg/dL (8.4-10.2); Carbon Dioxide 20 mmol/L (22-29); Chloride 112 mmol/L (96-108); Creatinine Clr Calc Pharmacy 59.7; Estimated Glomerular Filt Rate 47; Glucose Random 228 mg/dL (60-115); Potassium 5.6 mmol/L (3.3-5.1); Sodium 137 mmol/L (135-145)
[2023-03-24] MEDS: Sodium Zirconium Cyclosilicate 5 GM POWD.PACK PO (14:34)
== END 2023-03-24 19:34 | disposition home or self-care (01) ==
PROVIDERS: Registered Nurse Emergency; Emergency Provider Emergency Medicine
DX: R60.0 Localized edema (principal); M79.602 Pain in left arm; J44.9 Chronic obstructive pulmonary disease, unspecified; R20.0 Anesthesia of skin; Z79.899 Other long term (current) drug therapy
CPT/HCPCS: 36415; 36556; 80048; 85025; 85610; 93971; 99284

== ENCOUNTER 2023-03-24 20:06 | Emergency (ER) | payer OTHER, SELFPAY ==
--- NOTE | 2023-03-24 20:10 | PC.NURSE ---
called , when medically cleared pt can go back to his residence
[2023-03-24 20:14] VITALS: BP 157/77; PULSE 90; RESP 19; TEMP 36.5; O2SAT 96; BMI 38.5
--- NOTE | 2023-03-24 20:19 | ED.GENADULT ---
HPI - General Adult General Chief complaint: General Medical Stated complaint: pt was just d/c from bed 2, per ems Time Seen by Provider: 03/24/23 20:14 Source: patient, RN notes reviewed and old records reviewed Mode of arrival: EMS Limitations: no limitations History of Present Illness HPI narrative: 67-year-old male presents for evaluation of they sent me to the wrong place. Patient was seen here earlier this afternoon for left upper extremity lymphedema unfortunately, he was supposed to be discharged back home via ambulance but was ultimately discharged to the [facility] or he is not a resident therefore the patient was subsequently brought back to the emergency department he has no further complaints he would like to be discharged to his house nursing staff spoke to his who is expecting him at his house. Related Data Home Medications Medication Instructions Recorded Confirmed aspirin 81 mg tablet,delayed 81 mg PO DAILY 04/04/21 08/11/22 release clonazepam 1 mg tablet 1 mg PO TID 04/04/21 08/11/22 insulin lispro 100 unit/mL 14 unit subcut TIDAC 04/04/21 08/11/22 subcutaneous pen acetaminophen 325 mg tablet 650 mg PO QID PRN Pain 03/05/22 08/11/22 insulin glargine 100 unit/mL (3 30 unit subcut BEDTIME 03/05/22 08/11/22 mL) subcutaneous pen (Lantus Solostar U-100 Insulin) lidocaine 5 % topical patch 1 patch topical DAILY 03/05/22 08/11/22 docusate sodium 100 mg capsule 100 mg PO BID PRN Constipation 03/21/22 08/11/22 multivitamin 1 tab PO DAILY 03/21/22 08/11/22 Lactobacillus acidophilus 1 1,000 mmu cells PO DAILY 08/11/22 billion cell capsule atorvastatin 80 mg tablet 40 mg PO BEDTIME 08/11/22 cholecalciferol (vitamin D3) 25 50 mcg PO DAILY 08/11/22 mcg (1,000 unit) tablet empagliflozin 25 mg tablet 25 mg PO DAILY 08/11/22 08/11/22 furosemide 20 mg tablet 20 mg PO DAILY PRN weight gain 08/11/22 hydroxyzine pamoate 25 mg capsule 25 mg PO BID PRN 08/11/22 lamotrigine 100 mg tablet 100 mg PO DAILY 08/11/22 lisinopril 10 mg tablet 10 mg PO DAILY 08/11/22 mirtazapine 30 mg tablet 30 mg PO .COMPLEX 08/11/22 olanzapine 15 mg tablet 30 mg PO BEDTIME 08/11/22 omeprazole 20 mg capsule,delayed 20 mg PO DAILY 08/11/22 release Previous Rx's Medication Instructions Recorded magnesium oxide 400 mg (241.3 mg 800 mg (2 x 400 mg (241.3 mg 03/24/22 magnesium) tablet magnesium)) PO BIDWM 30 days #120 tabs carvedilol 3.125 mg tablet 3.125 mg PO BID 90 days #180 tabs 08/12/22 oxycodone 5 mg tablet 5 mg PO BID PRN pain #7 tabs 01/24/23 Allergies Allergy/AdvReac Type Severity Reaction Status Date / Time quetiapine [From Seroquel] Allergy Mild LEG Verified 03/24/23 11:07 SWELLING haloperidol [From Haldol] Allergy Unknown Verified 03/24/23 11:07 onion [Onion] AdvReac Unknown NAUSEA & Verified 03/24/23 11:07 VOMITING PEPPERS AdvReac Mild NAUSEA & Uncoded 03/24/23 11:07 VOMITING Review of Systems Constitutional: Constitutional: Denies chills and Denies fever(s) Cardiovascular: Cardiovascular: Denies chest pain and Denies dyspnea Respiratory: Respiratory: Denies dyspnea PMFSH Past Medical History Medical History Anxiety Coronary artery disease NSTEMI (non-ST elevated myocardial infarction) Cardiomyopathy Sleep apnea Mini stroke Nephrolithiasis Neurogenic bladder Malignant neoplasm of overlapping sites of bladder Prostate cancer Surgical History S/P cardiac cath History of cardiac cath Family History Family History Father CAD (coronary artery disease) Pacemaker Social History Social History Household Members: Family Housing: House Do you presently have visiting nurse or other home services: Yes Alcohol intake: never Patient Tobacco Use Status: Former Tobacco user Quit Date: 2022 Tobacco use type: Cigarette Smoked in Last 30 Days: No Second Hand Smoke Exposure: Yes Advance Directives: Yes Advance Directives on File: Yes Advance Directives Date on File: 04/12/21 service: Yes Current occupational status: disabled Physical Exam ED Vital Signs: Vital Signs - 24 hr 03/24/23 20:14 Temperature 97.7 F Pulse Rate 90 Respiratory Rate 19 Blood Pressure 157/77 H Pulse Oximetry 96 Oxygen Delivery Method Room Air BMI result Body Mass Index 38.5 Const General: cooperative, healthy appearing, comfortable and no acute distress Orientation/consciousness: patient oriented x3 Limitations: no limitations Neuro General: patient oriented x3 Medical Decision Making Medical Decision Making MDM Narrative: Patient has no further complaints when compared to his visit here today. I read his visit from earlier today. We confirmed with his that he was supposed to be discharged back to his house and will make arrangements for that to happen. The patient was requesting to be fed and his blood sugar to be checked. His glucose was 161 and he was fed. Differential Diagnosis Differential Diagnoses: The differential diagnosis associated with the presentation includes Lymphedema of left arm. Well visit Failed discharge hyperglycemia Lab Data Labs: Lab Results 03/24/23 Range/Units 20:25 POC Glucose 161 H (60-115) mg/dL Discharge Plan Discharge Clinical Impression: Lymphedema of left arm Patient Disposition: Home, Self-Care Instructions: Lymphedema (ED) Prescriptions: No Action atorvastatin 80 mg tablet 40 mg PO BEDTIME furosemide 20 mg tablet 20 mg PO DAILY PRN (Reason: weight gain) Rx Instructions: one tab as needed for wt gain 3+ lbs in 24 hours or 5 lbs in one week lisinopril 10 mg tablet 10 mg PO DAILY omeprazole 20 mg capsule,delayed release(DR/EC) 20 mg PO DAILY cholecalciferol (vitamin D3) 25 mcg (1,000 unit) tablet 50 mcg PO DAILY lamotrigine 100 mg tablet 100 mg PO DAILY olanzapine 15 mg tablet 30 mg PO BEDTIME mirtazapine 30 mg tablet 30 mg PO .COMPLEX Rx Instructions: 30 mg orally one tab in the evening and 1/2 tab QHS; hydroxyzine pamoate 25 mg capsule 25 mg PO BID PRN Lactobacillus acidophilus 1 billion cell capsule 1,000 mmu cells PO DAILY carvedilol 3.125 mg tablet 3.125 mg PO BID 90 Days Qty: 180 3RF Rx Instructions: must administer with a meal/food clonazepam 1 mg Tablet 1 mg PO TID aspirin 81 mg Tablet,Delayed Release (Dr/Ec) 81 mg PO DAILY insulin lispro 100 unit/mL Insulin Pen 14 unit SUBCUT TIDAC Hold Instructions: monitor blood sugar before meals and at night call to schedule follow up with PCP acetaminophen 325 mg Tablet 650 mg PO QID PRN (Reason: Pain) lidocaine 5 % Adhesive Patch,Medicated 1 patch TOPICAL DAILY Rx Instructions: leave on most painful area for up to 12 hrs insulin glargine [Lantus Solostar U-100 Insulin] 100 unit/mL (3 mL) Insulin Pen 30 unit SUBCUT BEDTIME multivitamin Tablet 1 tab PO DAILY docusate sodium 100 mg Capsule 100 mg PO BID PRN (Reason: Constipation) magnesium oxide 400 mg (241.3 mg magnesium) Tablet 800 mg PO BIDWM 30 Days Qty: 120 0RF empagliflozin 25 mg tablet 25 mg PO DAILY oxycodone 5 mg tablet 5 mg PO BID PRN (Reason: pain) Qty: 7 0RF Rx Instructions: Partial Fill upon patient request.
[2023-03-24 20:30] LABS: Glucose, Whole Blood 161 mg/dL (60-115)
== END 2023-03-24 21:59 | disposition home or self-care (01) ==
PROVIDERS: Emergency Provider Emergency Medicine
DX: I89.0 Lymphedema, not elsewhere classified (principal); Z79.899 Other long term (current) drug therapy
CPT/HCPCS: 82947; 99284

== ENCOUNTER 2023-05-19 06:51 | Emergency (ER) | payer OTHER, SELFPAY ==
--- NOTE | ~2023-05-19 | XR_ITS ---
Examination: Chest. Left hand. Clinical indications: Fall, pain. COMPARISON: Chest 03/09/2023. TECHNIQUE: Chest 2 views. Left hand 3 views. FINDINGS: Chest: The lungs are well-expanded with platelike atelectasis in the lingula. Rest lungs are clear. Heart size and pulmonary vascularity is normal. No gross bony abnormality seen. Left hand: There are amputations of first through fifth digits beyond the proximal and proximal phalanges. There is an old healed fractures mid third and mid fifth digits. There is diffuse osteopenia. No acute fracture or dislocation seen. XR/XR chest 2V IMPRESSION: 1. Platelike atelectasis in the lingula. Otherwise no acute process seen in the chest. 2. Amputation of first through fifth digits beyond the proximal and proximal phalanges. No acute fracture or dislocation seen. There is diffuse osteopenia.
--- NOTE | ~2023-05-19 | CT_ITS ---
EXAMINATION: CT HEAD WITHOUT CONTRAST CLINICAL INFORMATION: Confusion COMPARISON: 03/17/2022 TECHNIQUE: Contiguous axial imaging was performed from the skull base to vertex without intravenous administration of contrast. This CT examination was performed using dose optimization techniques as appropriate, variously including the following: *Automated exposure control *Adjustment of mA and/or kV according to patient size (this includes techniques or standardized protocols for targeted exams where dose is matched to indication/reason for exam; i.e. extremities or head) *Use of iterative reconstruction technique DLP: 867 mGy-cm FINDINGS: No evidence of intracranial hemorrhage, extra-axial surface collection, focal mass effect or midline shift. Chronic mild to moderate parenchymal volume loss with atrophic changes affecting more of the frontal and temporal lobes than parietal or occipital lobes. The parenchymal volume loss is associated with chronic symmetric prominence of the ventricles and sulci; no hydrocephalus. The brainstem and cerebellum are unremarkable. There is atherosclerotic calcification of cavernous carotid arteries. The munoz-white matter differentiation is maintained. No evidence of an acute major vascular territory infarction. Calvarium is unremarkable. Mild mucosal thickening of inferior frontal sinus and of some of the ethmoid air cells. Minimal mucosal thickening involving the maxillary sinus. No air-fluid levels within paranasal sinuses. Mastoid air cells are well aerated. The visualized orbits and temporomandibular joints are unremarkable. CT/CT head/brain wo IV con IMPRESSION: No intracranial mass, hemorrhage or other acute intracranial pathology compared to 03/17/2022. The parenchymal volume loss is associated with commensurate prominence of ventricles and sulci; no hydrocephalus.
--- NOTE | ~2023-05-19 | XR_ITS ---
Examination: Chest. Left hand. Clinical indications: Fall, pain. COMPARISON: Chest 03/09/2023. TECHNIQUE: Chest 2 views. Left hand 3 views. FINDINGS: Chest: The lungs are well-expanded with platelike atelectasis in the lingula. Rest lungs are clear. Heart size and pulmonary vascularity is normal. No gross bony abnormality seen. Left hand: There are amputations of first through fifth digits beyond the proximal and proximal phalanges. There is an old healed fractures mid third and mid fifth digits. There is diffuse osteopenia. No acute fracture or dislocation seen. XR/XR hand LT min 3V IMPRESSION: 1. Platelike atelectasis in the lingula. Otherwise no acute process seen in the chest. 2. Amputation of first through fifth digits beyond the proximal and proximal phalanges. No acute fracture or dislocation seen. There is diffuse osteopenia.
[2023-05-19 07:06] VITALS: BP 156/75; BP 160/92; PULSE 90; RESP 18; TEMP 36.7; O2SAT 96; O2SAT 97; BMI 36.8
--- NOTE | 2023-05-19 07:22 | ECG_ITS ---
Test Reason : weakness Blood Pressure : / mmHG Vent. Rate : 089 BPM Atrial Rate : 089 BPM P-R Int : 216 ms QRS Dur : 142 ms QT Int : 416 ms P-R-T Axes : 039 030 015 degrees QTc Int : 506 ms Sinus rhythm with 1st degree A-V block Right bundle branch block Possible Inferior infarct (cited on or before 19-MAY-2023) Abnormal ECG When compared with ECG of 09-MAR-2023 22:24, No significant change was found Referred By: Leon Pereira Electronically Signed By:OLIVIA MEDINA MD
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
[2023-05-19 08:53] LABS: MANUAL DIFF FLAG NO
[2023-05-19 08:54] LABS: Basophils Percent Auto 0.4 % (0-2); Eosinophils Absolute Auto 0.6 X10*3/uL (0.0-0.4); Eosinophils Percent Auto 8.2 % (0-4); Hematocrit 33.1 % (42.0-52.0); Hemoglobin 10.6 g/dl (14.0-18.0); Imm Gran Abs Auto 0.02 X10*3/uL (0.00-0.03); Imm Gran Pct Auto 0.3 % (0.0-0.4); Lymphocytes Absolute Auto 1.6 X10*3/uL (1.2-4.9); Lymphocytes Percent Auto 23.6 % (20-40); Mean Corpuscular Volume 90.4 fL (80.0-98.0); Mean Platelet Volume 9.6 fL (9.4-12.4); Monocytes Absolute Auto 0.6 X10*3/uL (0.1-1.2); Monocytes Percent Auto 8.8 % (2-11); Neutrophils Percent Auto 58.7 % (45-73); Platelet Count 167 X10*3/uL (160-400); Red Blood Count 3.66 X10*6/uL (4.60-5.80); Red Cell Distribution Width 13.9 % (11.0-16.0); White Blood Count 6.8 X10*3/uL (4.8-10.8)
[2023-05-19 08:58] LABS: Venous Blood Gas Refer to POC result
[2023-05-19 08:58] LABS: VBG Base Excess -1.2 mmol/L; VBG HCO3 23 mmol/L (22-26); VBG pCO2 36 mmHg; VBG pO2 72 mmHg
[2023-05-19 09:08] LABS: IDNOW Serial# 9DB6401D
[2023-05-19 09:09] LABS: Influenza A Negative (Negative); Influenza B2 Negative (Negative)
[2023-05-19 09:09] LABS: Ethanol < 10 mg/dL
[2023-05-19 09:10] LABS: COVID-19 Test Negative (Negative); IDNOW Serial# 152EDE1D
[2023-05-19 09:11] LABS: Alanine Aminotransferase 23 U/L (0-40); Albumin Level 3.4 g/dL (3.5-5.0); Alkaline Phosphatase 118 U/L (39-117); Anion Gap 9 (12-20); Aspartate Amino Transferase 26 U/L (5-37); Bilirubin Direct 0.1 mg/dL (0.0-0.5); Bilirubin Total 0.3 mg/dL (0.0-1.0); Blood Urea Nitrogen 22 mg/dL (9-16); C Reactive Protein 3.04 mg/dL (< or = 0.50); Calcium 9.1 mg/dL (8.4-10.2); Carbon Dioxide 23 mmol/L (22-29); Chloride 115 mmol/L (96-108); Creatinine Clr Calc Pharmacy 75.5; Estimated Glomerular Filt Rate > 60; Glucose Random 156 mg/dL (60-115); Magnesium 1.5 mg/dL (1.6-2.6); Potassium 3.8 mmol/L (3.3-5.1); Sodium 143 mmol/L (135-145); Total Protein 6.3 g/dL (6.5-8.0)
[2023-05-19 09:15] LABS: B Type Natriuretic Peptide 63 pg/mL (<100)
[2023-05-19 09:20] LABS: Troponin-I High Sensitivity 5.1 ng/L (<3.5-35.0)
[2023-05-19 09:32] VITALS: BP 151/71; PULSE 88; RESP 15; TEMP 36.8; O2SAT 98
[2023-05-19 09:46] LABS: Appearance Urine Clear; Color Urine Yellow; Glucose Urine UA Negative (Negative); Leukocyte Esterase Urine Trace (Negative); Nitrite Urine Negative (Negative); PH 5.5 (5.0-9.0); Specific Gravity - Urine 1.015 (1.005-1.025); UMIC TRIGGER UACC YES; Urine Blood Negative (Negative); Urine Ketones Negative (Negative); Urine Protein Trace mg/dL (Neg-Trace)
[2023-05-19 09:56] LABS: Amphetamine Screen Urine Not Detected (Not Detect); Barbiturates, Urine Not Detected (Not Detect); Benzodiazepines Screen Urine POSITIVE (Not Detect); Cannabinoid Screen Urine Not Detected (Not Detect); Cocaine Screen Urine Not Detected (Not Detect); Fentanyl, urine Not Detected (Not Detect); Opiate Screen Urine Not Detected (Not Detect); Phencyclidine Screen Urine Not Detected (Not Detect)
[2023-05-19 09:58] LABS: Bacteria Urine None Seen (None Seen); Hyaline Casts Urine 0-2 /LPF (0-2); RBC Urine 0-2 /HPF (0-2); Squamous Epithelial Cell Urine 0-2 /HPF (0-2); UACC Culture Trigger YES
[2023-05-19 12:00] VITALS: BP 145/70; PULSE 86; RESP 18; O2SAT 97
--- NOTE | 2023-05-19 13:39 | PC.NURSE ---
pt went home to get med list.
[2023-05-19 14:00] VITALS: BP 121/52; PULSE 86; RESP 18; O2SAT 97
--- NOTE | 2023-05-19 14:00 | MHC.CM.ED ---
Addendum entered by Amada Benitez 05/19/23 16:23: Insurance auth has been obtained by [facility] on [address]. Alert BLS booked for 5pm. Patient, , Zuleyma RN and Dr Pereira aware. Original Note: Received case management consult from Dr Pereira. Patient came to the ER due to fall. Work up essentially negative. Physical therapy eval pending. Patient states he would like to go to [facility] on [address]. Referral made via [facility]. Copy of HCP verified to be on file. Patient received 4 Moderna vaccines. Continue to monitor for d/c needs.
[2023-05-19 14:52] VITALS: BP 121/52; PULSE 86; O2SAT 97
--- NOTE | 2023-05-19 16:36 | MHC.CM.ED ---
Dr. Quintero questioning patient regarding dosage of oxycontin and frequency. Pt requested to speak with CM alone. states that with PCP approval, she has been giving her tylenol and a sugar pill (placebo) with good effects. Pt thinks it is oxycontin. MD aware. CM requested that provider document this in his note. Primary RN aware. CM requested primary RN relay placebo to [facility] staff. CM obtained Med List. Given to primary RN to transport with patient.
[2023-05-19 17:09] VITALS: PULSE 81; RESP 18; O2SAT 97
--- NOTE | 2023-05-19 17:11 | PC.NURSE ---
RN-RN report given to Jeovany García on [place], conveyed message to expecting RN RE: sugar pill use instead of Oxycodone - no active Rx since Feb.
== END 2023-05-19 17:12 ==
PROVIDERS: Emergency Provider Emergency Medicine; PCP Nurse Practitioner Adult Health
DX: S69.92XA Unspecified injury of left wrist, hand and finger(s), initial encounter (principal); S09.90XA Unspecified injury of head, initial encounter; R51.9 Headache, unspecified; R06.02 Shortness of breath; M79.642 Pain in left hand; W01.10XA Fall on same level from slipping, tripping and stumbling with subsequent striking against unspecified object, initial encounter; Y93.9 Activity, unspecified; Y92.9 Unspecified place or not applicable; Y99.9 Unspecified external cause status; Z91.81 History of falling; Z11.52 Encounter for screening for COVID-19; Z20.828 Contact with and (suspected) exposure to other viral communicable diseases; Z79.899 Other long term (current) drug therapy
CPT/HCPCS: 36415; 70450; 71046; 73130; 80048; 80076; 80307; 81001; 82550; 82803; 83735; 83880; 84484; 85025; 86140; 87086; 87088; 87186; 87502; 87635; 93005; 97162; 99285

== ENCOUNTER → 2023-05-19 07:22 | Outpatient (BNV) | payer OTHER, SELFPAY | PROVIDERS: Emergency Provider Emergency Medicine; PCP Nurse Practitioner Adult Health; Visit Provider Internal Medicine Cardiovascular Disease | DX: R53.1 Weakness (principal) | CPT/HCPCS: 93010 ==

== ENCOUNTER 2023-07-02 08:16 | Inpatient (IN) | payer OTHER, MEDICARE, SELFPAY ==
[2023-07-02] VITALS (12 sets, daily range): BP systolic 147–192; BP diastolic 67–93; PULSE 87–107; RESP 18–30; TEMP 36.6–38.7; O2SAT 91–96; BMI 40.9
--- NOTE | ~2023-07-02 | US_ITS ---
EXAMINATION: US VENOUS ULTRASOUND WITH DOPPLER LOWER EXTREMITY, BILATERAL CLINICAL INFORMATION: Bilateral lower extremity swelling COMPARISON: Bilateral lower extremity venous ultrasound with Doppler on 03/21/2022 TECHNIQUE: Ultrasound of the deep veins is performed from the hip to the calf with compression sonography and color and pulse Doppler assessment. Spectral analysis with color-flow imaging is performed. FINDINGS: RIGHT: There is normal venous compression and respiratory variation and augmented flow. The visualized common femoral vein, superficial femoral vein, profunda femoral vein, popliteal vein, and the trifurcation region shows no evidence of deep venous thrombosis. There is no significant popliteal fossa cyst. LEFT: There is normal venous compression and respiratory variation and augmented flow. The visualized common femoral vein, superficial femoral vein, profunda femoral vein, popliteal vein, and the trifurcation region shows no evidence of deep venous thrombosis. There is no significant popliteal fossa cyst. If the patient's symptoms persist, followup ultrasound in 5 days 7 days might be of value to exclude proximal propagation from a non-visualized calf vein. US/US venous duplex LE BI IMPRESSION: Unchanged, No DVT demonstrated in the right and left lower extremity.
--- NOTE | ~2023-07-02 | XR_ITS ---
EXAMINATION: XR CHEST CLINICAL INFORMATION: Mental status change COMPARISON: 05/19/2023 TECHNIQUE: Frontal view of the chest was obtained. FINDINGS: No evidence of infiltrates or nodules. Linear scarring/atelectasis seen in the left lower lobe. Cardiomediastinal silhouette is normal. No evidence of pleural effusion. XR/XR chest 1V IMPRESSION: No active cardiopulmonary disease
--- NOTE | ~2023-07-02 | CT_ITS ---
EXAMINATION: CT ABDOMEN AND PELVIS WITHOUT CONTRAST CLINICAL INFORMATION: 67-year-old male with abdominal pain COMPARISON: 10/30/2021 TECHNIQUE: Multidetector volumetric imaging was performed from the superior aspect of the liver through the pubic symphysis. Sagittal and coronal reformatted images were obtained on the technologist's workstation. This CT examination was performed using dose optimization techniques as appropriate, variously including the following: *Automated exposure control *Adjustment of mA and/or kV according to patient size (this includes techniques or standardized protocols for targeted exams where dose is matched to indication/reason for exam; i.e. extremities or head) *Use of iterative reconstruction technique DLP: 1285 mGy-cm FINDINGS: LUNG BASES: There are bibasilar atelectasis. Coronary artery calcifications present. LIVER, GALLBLADDER, AND BILIARY TREE: The liver is normal in size, shape, and attenuation. No focal hepatic lesion or biliary ductal dilatation is present. Gallbladder is surgically absent. PANCREAS: There are numerous coarse calcifications consistent with sequela of chronic pancreatitis. There is no evidence of acute pancreatitis or masses SPLEEN: Unremarkable. ADRENAL GLANDS: Unremarkable. KIDNEYS AND URETERS: There are vascular calcifications seen. There is mild perinephric stranding seen bilaterally. No evidence of hydroureteronephrosis. No obvious calculi seen. BLADDER: Unremarkable. GASTROINTESTINAL TRACT: There is large amount of feces seen through colon. No evidence of bowel obstruction. Normal appendix present. ABDOMINAL WALL: No significant hernia is appreciated. LYMPH NODES: Normal. VASCULAR: Atherosclerotic calcifications seen throughout the not dilated abdominal aorta PELVIC VISCERA: Brachial artery proceeds present within the prostate. Prostate is not enlarged. OSSEOUS STRUCTURES: There is diffuse osteopenia and mild compression deformity of L4 with 50% height diminished. Visualized lower limits ribs on the left demonstrates status post fracture with healing. CT/CT abdomen pelvis wo IV con IMPRESSION: 1. No acute abnormalities. 2. Sequela of chronic pancreatitis. 3. Constipation. 4. Diffuse osteopenia and compression deformity of L4. Fleischner guidelines were followed.
--- NOTE | ~2023-07-02 | CT_ITS ---
EXAMINATION: CT HEAD WITHOUT CONTRAST CT CERVICAL SPINE WITHOUT CONTRAST CLINICAL INFORMATION: 67-year-old male with mental status change and status post fall COMPARISON: 05/19/2023 and head and neck from 03/17/2022 TECHNIQUE: CT of the head and cervical spine were performed without intravenous contrast. Multiplanar reformats were rendered and reviewed. This CT examination was performed using dose optimization techniques as appropriate, variously including the following: *Automated exposure control *Adjustment of mA and/or kV according to patient size (this includes techniques or standardized protocols for targeted exams where dose is matched to indication/reason for exam; i.e. extremities or head) *Use of iterative reconstruction technique DLP: 1397 mGy-cm. FINDINGS: CT head: No intracranial hemorrhage, large infarction, or mass lesion is seen. No extra-axial collection is appreciated. The ventricles are mildly prominent surrounding the pacer periventricular white matter changes as a sequela of microangiopathy. There is mild prominence of sulci. The visualized paranasal sinuses and mastoid air cells are clear. CT cervical spine: The cervical alignment is normal. The craniocervical junction is normal. The vertebral body heights are maintained. No cervical spine fracture is seen. There are mild degenerative changes with narrowing of C6-C7 intervertebral disc space and marginal spurring. The paraspinal soft tissues are within normal limits. The partially imaged lung apices are clear. CT/CT head/brain wo IV con IMPRESSION: CT HEAD: No acute intracranial finding. CT CERVICAL SPINE: No cervical spine fracture or traumatic malalignment identified.
--- NOTE | ~2023-07-02 | CT_ITS ---
EXAMINATION: CT HEAD WITHOUT CONTRAST CT CERVICAL SPINE WITHOUT CONTRAST CLINICAL INFORMATION: 67-year-old male with mental status change and status post fall COMPARISON: 05/19/2023 and head and neck from 03/17/2022 TECHNIQUE: CT of the head and cervical spine were performed without intravenous contrast. Multiplanar reformats were rendered and reviewed. This CT examination was performed using dose optimization techniques as appropriate, variously including the following: *Automated exposure control *Adjustment of mA and/or kV according to patient size (this includes techniques or standardized protocols for targeted exams where dose is matched to indication/reason for exam; i.e. extremities or head) *Use of iterative reconstruction technique DLP: 1397 mGy-cm. FINDINGS: CT head: No intracranial hemorrhage, large infarction, or mass lesion is seen. No extra-axial collection is appreciated. The ventricles are mildly prominent surrounding the pacer periventricular white matter changes as a sequela of microangiopathy. There is mild prominence of sulci. The visualized paranasal sinuses and mastoid air cells are clear. CT cervical spine: The cervical alignment is normal. The craniocervical junction is normal. The vertebral body heights are maintained. No cervical spine fracture is seen. There are mild degenerative changes with narrowing of C6-C7 intervertebral disc space and marginal spurring. The paraspinal soft tissues are within normal limits. The partially imaged lung apices are clear. CT/CT cervical spine wo IV con IMPRESSION: CT HEAD: No acute intracranial finding. CT CERVICAL SPINE: No cervical spine fracture or traumatic malalignment identified.
--- NOTE | 2023-07-02 08:33 | ED.GENADULT ---
HPI - General Adult General Chief complaint: Altered Mental Status Stated complaint: ams/recent uti/general weakness Time Seen by Provider: 07/02/23 08:33 Source: patient and family (Spouse) Mode of arrival: ambulatory Limitations: no limitations History of Present Illness HPI narrative: 67-year-old male came in for evaluation of mental status change and confusion. Recently diagnosed with UTI by his PCP was started on Augmentin and Zithromax and family in noted that the patient is been confused for the past 3-4 days, patient also sustained a fall yesterday reported that he hit his head with the fall, otherwise no fever, no chills, no upper respiratory symptoms, no chest pain, no abdominal pain. Related Data Home Medications Medication Instructions Recorded Confirmed aspirin 81 mg tablet,delayed 81 mg PO DAILY 04/04/21 08/11/22 release clonazepam 1 mg tablet 1 mg PO TID 04/04/21 08/11/22 insulin lispro 100 unit/mL 14 unit subcut TIDAC 04/04/21 08/11/22 subcutaneous pen acetaminophen 325 mg tablet 650 mg PO QID PRN Pain 03/05/22 08/11/22 insulin glargine 100 unit/mL (3 30 unit subcut BEDTIME 03/05/22 08/11/22 mL) subcutaneous pen (Lantus Solostar U-100 Insulin) lidocaine 5 % topical patch 1 patch topical DAILY 03/05/22 08/11/22 docusate sodium 100 mg capsule 100 mg PO BID PRN Constipation 03/21/22 08/11/22 multivitamin 1 tab PO DAILY 03/21/22 08/11/22 Lactobacillus acidophilus 1 1,000 mmu cells PO DAILY 08/11/22 billion cell capsule atorvastatin 80 mg tablet 40 mg PO BEDTIME 08/11/22 cholecalciferol (vitamin D3) 25 50 mcg PO DAILY 08/11/22 mcg (1,000 unit) tablet empagliflozin 25 mg tablet 25 mg PO DAILY 08/11/22 08/11/22 furosemide 20 mg tablet 20 mg PO DAILY PRN weight gain 08/11/22 hydroxyzine pamoate 25 mg capsule 25 mg PO BID PRN 08/11/22 lamotrigine 100 mg tablet 100 mg PO DAILY 08/11/22 lisinopril 10 mg tablet 10 mg PO DAILY 08/11/22 mirtazapine 30 mg tablet 30 mg PO .COMPLEX 08/11/22 olanzapine 15 mg tablet 30 mg PO BEDTIME 08/11/22 omeprazole 20 mg capsule,delayed 20 mg PO DAILY 08/11/22 release Previous Rx's Medication Instructions Recorded magnesium oxide 400 mg (241.3 mg 800 mg (2 x 400 mg (241.3 mg 03/24/22 magnesium) tablet magnesium)) PO BIDWM 30 days #120 tabs carvedilol 3.125 mg tablet 3.125 mg PO BID 90 days #180 tabs 08/12/22 oxycodone 5 mg tablet 5 mg PO BID PRN pain #7 tabs 01/24/23 cefuroxime axetil 250 mg tablet 250 mg PO BID 7 days #14 tabs 05/23/23 Allergies Allergy/AdvReac Type Severity Reaction Status Date / Time quetiapine [From Seroquel] Allergy Mild LEG Verified 07/02/23 08:31 SWELLING haloperidol [From Haldol] Allergy Unknown Verified 07/02/23 08:31 onion [Onion] AdvReac Unknown NAUSEA & Verified 07/02/23 08:31 VOMITING PEPPERS AdvReac Mild NAUSEA & Uncoded 07/02/23 08:31 VOMITING Review of Systems Review of Systems: All other systems are reviewed and are negative Constitutional: Reports as per HPI and Reports no additional constitutional complaints Eyes: Reports as per HPI and Reports no additional eye complaints Reports system reviewed and no additional complaints, except as documented Cardiovascular: Reports as per HPI and Reports no additional cardiovascular complaints Respiratory: Reports as per HPI and Reports no additional respiratory complaints Gastrointestinal: Reports as per HPI and Reports no additional gastrointestinal complaints Genitourinary: Reports no additional female genitourinary complaints Musculoskeletal: Reports no additional musculoskeletal complaints Skin/Breast: Reports system reviewed and no additional complaints, except as docu Psychiatric: Reports no additional psychiatric complaints Endocrine: Reports no additional endocrine complaints Hematologic/Lymphatic: Reports no additional hematologic/lymphatic complaints Allergic/Immunologic: Reports no additional allergic/immunologic complaints Reports system reviewed and no additional complaints, except as documented and Reports Abnormal speech present [facility] Past Medical History Medical History Anxiety Coronary artery disease NSTEMI (non-ST elevated myocardial infarction) Cardiomyopathy Sleep apnea Mini stroke Nephrolithiasis Neurogenic bladder Malignant neoplasm of overlapping sites of bladder Prostate cancer Surgical History S/P cardiac cath History of cardiac cath Family History Family History Father CAD (coronary artery disease) Pacemaker Social History Social History Household Members: Family Housing: House Do you presently have visiting nurse or other home services: Yes Unable to assess alcohol history related to: Unknown Alcohol intake: never Patient Tobacco Use Status: Former Tobacco user Quit Date: 2022 Tobacco use type: Cigarette Smoked in Last 30 Days: No Second Hand Smoke Exposure: Yes Use of substances other than those prescribed or required for medical reasons: Unknown Advance Directives: Yes Advance Directives on File: Yes Advance Directives Date on File: 04/12/21 service: Yes Current occupational status: disabled Physical Exam ED Vital Signs: Vital Signs - 24 hr 07/02/23 08:31 07/02/23 10:35 07/02/23 11:20 Temperature 98.4 F 98.1 F 101.4 F H Pulse Rate 102 H 103 H Respiratory Rate 18 20 Blood Pressure 154/67 H 147/75 H Pulse Oximetry 93 91 L Oxygen Delivery Method Room Air Room Air 07/02/23 11:40 07/02/23 13:36 07/02/23 14:30 Temperature Pulse Rate 106 H 107 H 100 Respiratory Rate 26 H 22 H 22 H Blood Pressure 154/81 H 192/78 H 192/78 H Pulse Oximetry 94 94 94 Oxygen Delivery Method Room Air Room Air Room Air BMI result Body Mass Index 40.9 Vital signs have been reviewed and appear to be correct. Blood pressure elevated. Heart rate normal. Respiratory rate normal. Temperature normal. Oxygen saturation normal. Appearance: Alert. Oriented X3. No acute distress. Head: Normal external exam. Normocephalic. Atraumatic. No Durand signs noted. No raccoon eyes noted Eyes: PERRLA. EOMI. Conjunctiva and sclera normal. Eyelids normal. ENT: TM's Normal. Pharynx normal. Uvula midline. Moist mucous membranes. No trismus noted. No drooling noted. No muffled voice noted. Neck: Normal inspection. Neck supple. FROM. No adenopathy. Thyroid Normal. No meningeal signs. No neck mass noted. CVS: Normal heart rate and rhythm. Heart sound normal. No murmurs noted. Pulses normal throughout. Respiratory: No respiratory distress. Painless inspiration. Breath sounds normal. No wheezes/rales/rhonchi noted. Chest nontender. No accessory muscle usage noted or decreased air movement noted. Abdomen: Soft and nontender. Bowel sounds normal in all 4 quadrants. No distention noted. No organomegaly noted. No visible injury noted. Back: No CVA tenderness. Full range of motion noted. Skin: Skin warm and dry. Normal skin color. Normal skin turgor. No rashes/lesions/lacerations noted. Extremities: No lower extremity edema. Extremities exhibit normal range of motion. Extremities nontender. Neuro: Oriented X 3. Cranial nerve exam: II-XII are grossly intact No motor deficit. No sensory deficit. Reflexes normal. Course Reevaluation(s) Reevaluation #1: [age] year male came in for confusion, labs were grossly unremarkable, head/cervical spine CT are unremarkable, question of right leg cellulitis meeting SIRS but no severe sepsis or septic shock patient received Zosyn. Time: 15:01 Medications Administered Discontinued Medications Generic Name Dose Route Start Last Admin Trade Name Freq PRN Reason Stop Dose Admin Piperacillin Sod/Tazobactam 50 mls @ 100 mls/hr 07/02/23 13:41 07/02/23 14:42 Sod 3.375 gm/ Sodium Chloride IV 07/02/23 14:10 100 mls/hr ONCE ONE Administration Medical Decision Making Differential Diagnosis Differential Diagnoses: The differential diagnosis associated with the presentation includes (Leg cellulitis, pneumonia, UTI, intracranial bleed, cervical spine injury, electrolyte derangement, severe anemia, metabolic encephalopathy, Hypercarbia, hypoxia.) Admission/Observation Consideration of admission/observation: Escalation of care including admission/observation considered Consult Healthcare Provider Management of the patient was discussed with: Hospitalist (Dr. Bertrand) Lab Data MDM Lab Attestation statement: I reviewed the patient's lab results. 07/02/23 09:35 07/02/23 09:35 Labs: Lab Results 07/02/23 07/02/23 07/02/23 Range/Units 09:35 11:29 12:45 WBC 7.7 (4.8-10.8) X10*3/uL RBC 4.48 L D (4.60-5.80) X10*6/uL Hgb 12.7 L (14.0-18.0) g/dl Hct 40.3 L D (42.0-52.0) % MCV 90.0 (80.0-98.0) fL MCH 28.3 (27.0-33.0) pg MCHC 31.5 (31.0-36.0) g/dl RDW 13.8 (11.0-16.0) % Plt Count 181 (160-400) X10*3/uL MPV 10.1 (9.4-12.4) fL Immature Gran % (Auto) 0.3 (0.0-0.4) % Neut % (Auto) 72.6 (45-73) % Lymph % (Auto) 15.7 L (20-40) % Riley % (Auto) 6.2 (2-11) % Eos % (Auto) 4.9 H (0-4) % Baso % (Auto) 0.3 (0-2) % Lymph # (Auto) 1.2 (1.2-4.9) X10*3/uL Riley # (Auto) 0.5 (0.1-1.2) X10*3/uL Eos # (Auto) 0.4 (0.0-0.4) X10*3/uL Baso # (Auto) 0.0 (0.0-0.2) X10*3/uL Abs Immat Gran (auto) 0.02 (0.00-0.03) X10*3/uL Absolute Neuts (auto) 5.6 (2.0-8.3) x10*3/uL Absolute Nucleated RBC 0.000 (0.0-0.012) X10*3/uL Nucleated RBC % (auto) 0.0 (0.0-0.2) /100WBC O2 Saturation 90.0 % ABG pH at Pt Temp 7.45 (7.35-7.45) ABG pCO2 at Pt Temp 36 (32-45) mmHg ABG pO2 at Pt Temp 59 L (83-108) mmHg ABG HCO3 26 (22-26) mmol/L ABG Base Excess (Actual) 2.4 mmol/L Sodium 143 (135-145) mmol/L Potassium 3.9 (3.3-5.1) mmol/L Chloride 108 (96-108) mmol/L Carbon Dioxide 25 (22-29) mmol/L Anion Gap 14 (12-20) BUN 11 (9-16) mg/dL Creatinine 1.37 (0.5-1.4) mg/dL Estim Creat Clear Calc 60.6 Estimated GFR 52 Random Glucose 135 H (60-115) mg/dL Lactic Acid (0.5-2.0) mmol/L Calcium 9.3 (8.4-10.2) mg/dL Total Bilirubin 0.5 (0.0-1.0) mg/dL Direct Bilirubin 0.2 (0.0-0.5) mg/dL AST 22 (5-37) U/L ALT 20 (0-40) U/L Alkaline Phosphatase 116 (39-117) U/L Troponin I High Sens 8.6 D (<3.5-35.0) ng/L B-Natriuretic Peptide 94 (<100) pg/mL Total Protein 7.6 (6.5-8.0) g/dL Albumin 3.7 (3.5-5.0) g/dL Lipase < 4 L (8-78) U/L Urine Color Yellow Urine Appearance Clear Urine pH 6.0 (5.0-9.0) Ur Specific [place] 1.015 (1.005-1.025) Urine Protein 30 (1+) H (Neg-Trace) mg/dL Urine Glucose (UA) Negative (Negative) mg/dL Urine Ketones Negative (Negative) mg/dL Urine Blood Negative (Negative) Urine Nitrite Negative (Negative) Ur Leukocyte Esterase Negative (Negative) Urine RBC 0-2 (0-2) /HPF Urine WBC 0-5 (0-5) /HPF Ur Squamous Epith Cells 0-2 (0-2) /HPF Urine Bacteria None Seen (None Seen) Hyaline Casts 0-2 (0-2) /LPF Influenza Type A (PCR) NEGATIVE (Negative) Influenza Type B (PCR) NEGATIVE (Negative) RSV RNA Qual (PCR) NEGATIVE (Negative) SARS-CoV-2 RNA (RT-PCR) NEGATIVE (Negative) 07/02/23 Range/Units 14:40 WBC (4.8-10.8) X10*3/uL RBC (4.60-5.80) X10*6/uL Hgb (14.0-18.0) g/dl Hct (42.0-52.0) % MCV (80.0-98.0) fL MCH (27.0-33.0) pg MCHC (31.0-36.0) g/dl RDW (11.0-16.0) % Plt Count (160-400) X10*3/uL MPV (9.4-12.4) fL Immature Gran % (Auto) (0.0-0.4) % Neut % (Auto) (45-73) % Lymph % (Auto) (20-40) % Riley % (Auto) (2-11) % Eos % (Auto) (0-4) % Baso % (Auto) (0-2) % Lymph # (Auto) (1.2-4.9) X10*3/uL Riley # (Auto) (0.1-1.2) X10*3/uL Eos # (Auto) (0.0-0.4) X10*3/uL Baso # (Auto) (0.0-0.2) X10*3/uL Abs Immat Gran (auto) (0.00-0.03) X10*3/uL Absolute Neuts (auto) (2.0-8.3) x10*3/uL Absolute Nucleated RBC (0.0-0.012) X10*3/uL Nucleated RBC % (auto) (0.0-0.2) /100WBC O2 Saturation % ABG pH at Pt Temp (7.35-7.45) ABG pCO2 at Pt Temp (32-45) mmHg ABG pO2 at Pt Temp (83-108) mmHg ABG HCO3 (22-26) mmol/L ABG Base Excess (Actual) mmol/L Sodium (135-145) mmol/L Potassium (3.3-5.1) mmol/L Chloride (96-108) mmol/L Carbon Dioxide (22-29) mmol/L Anion Gap (12-20) BUN (9-16) mg/dL Creatinine (0.5-1.4) mg/dL Estim Creat Clear Calc Estimated GFR Random Glucose (60-115) mg/dL Lactic Acid 1.5 (0.5-2.0) mmol/L Calcium (8.4-10.2) mg/dL Total Bilirubin (0.0-1.0) mg/dL Direct Bilirubin (0.0-0.5) mg/dL AST (5-37) U/L ALT (0-40) U/L Alkaline Phosphatase (39-117) U/L Troponin I High Sens (<3.5-35.0) ng/L B-Natriuretic Peptide (<100) pg/mL Total Protein (6.5-8.0) g/dL Albumin (3.5-5.0) g/dL Lipase (8-78) U/L Urine Color Urine Appearance Urine pH (5.0-9.0) Ur Specific [place] (1.005-1.025) Urine Protein (Neg-Trace) mg/dL Urine Glucose (UA) (Negative) mg/dL Urine Ketones (Negative) mg/dL Urine Blood (Negative) Urine Nitrite (Negative) Ur Leukocyte Esterase (Negative) Urine RBC (0-2) /HPF Urine WBC (0-5) /HPF Ur Squamous Epith Cells (0-2) /HPF Urine Bacteria (None Seen) Hyaline Casts (0-2) /LPF Influenza Type A (PCR) (Negative) Influenza Type B (PCR) (Negative) RSV RNA Qual (PCR) (Negative) SARS-CoV-2 RNA (RT-PCR) (Negative) Independent Interpretation I performed an independent interpretation of an: Plain X-Ray (No acute intra thoracic pathology.) and CT Scan (Head/cervical spine: No acute pathology.) Radiology Impression Discussion of test interpretation with radiology: I have reviewed the radiologist's reading. Discharge Plan Discharge Clinical Impression: Cellulitis of right leg, Metabolic encephalopathy Patient Disposition: Admitted As Inpatient
--- NOTE | 2023-07-02 08:48 | ECG_ITS ---
Test Reason : MENTAL STATUS CHANGE Blood Pressure : / mmHG Vent. Rate : 103 BPM Atrial Rate : 103 BPM P-R Int : 200 ms QRS Dur : 138 ms QT Int : 336 ms P-R-T Axes : 038 038 015 degrees QTc Int : 440 ms Sinus tachycardia Right bundle branch block Possible Inferior infarct (cited on or before 19-MAY-2023) Abnormal ECG When compared with ECG of 19-MAY-2023 07:44, No significant changes seen Referred By: Franchesca Grace Electronically Signed By:MARS WHATLEY
[2023-07-02 09:39] LABS: MANUAL DIFF FLAG NO
[2023-07-02 09:42] LABS: Basophils Percent Auto 0.3 % (0-2); Eosinophils Absolute Auto 0.4 X10*3/uL (0.0-0.4); Eosinophils Percent Auto 4.9 % (0-4); Hematocrit 40.3 % (42.0-52.0); Hemoglobin 12.7 g/dl (14.0-18.0); Imm Gran Abs Auto 0.02 X10*3/uL (0.00-0.03); Imm Gran Pct Auto 0.3 % (0.0-0.4); Lymphocytes Absolute Auto 1.2 X10*3/uL (1.2-4.9); Lymphocytes Percent Auto 15.7 % (20-40); Mean Corpuscular HGB Conc 31.5 g/dl (31.0-36.0); Mean Corpuscular Hemoglobin 28.3 pg (27.0-33.0); Mean Platelet Volume 10.1 fL (9.4-12.4); Monocytes Absolute Auto 0.5 X10*3/uL (0.1-1.2); Monocytes Percent Auto 6.2 % (2-11); Neutrophils Absolute Auto 5.6 x10*3/uL (2.0-8.3); Neutrophils Percent Auto 72.6 % (45-73); Platelet Count 181 X10*3/uL (160-400); Red Blood Count 4.48 X10*6/uL (4.60-5.80); Red Cell Distribution Width 13.8 % (11.0-16.0); White Blood Count 7.7 X10*3/uL (4.8-10.8)
[2023-07-02 09:57] LABS: Alanine Aminotransferase 20 U/L (0-40); Albumin Level 3.7 g/dL (3.5-5.0); Alkaline Phosphatase 116 U/L (39-117); Anion Gap 14 (12-20); Aspartate Amino Transferase 22 U/L (5-37); Bilirubin Direct 0.2 mg/dL (0.0-0.5); Bilirubin Total 0.5 mg/dL (0.0-1.0); Blood Urea Nitrogen 11 mg/dL (9-16); Calcium 9.3 mg/dL (8.4-10.2); Carbon Dioxide 25 mmol/L (22-29); Chloride 108 mmol/L (96-108); Creatinine Clr Calc Pharmacy 60.6; Estimated Glomerular Filt Rate 52; Glucose Random 135 mg/dL (60-115); Lipase < 4 U/L (8-78); Potassium 3.9 mmol/L (3.3-5.1); Sodium 143 mmol/L (135-145); Total Protein 7.6 g/dL (6.5-8.0)
[2023-07-02 10:02] LABS: B Type Natriuretic Peptide 94 pg/mL (<100)
[2023-07-02 10:04] LABS: Troponin-I High Sensitivity 8.6 ng/L (<3.5-35.0)
[2023-07-02 10:21] LABS: Influenza A PCR NEGATIVE (Negative); Influenza B PCR NEGATIVE (Negative); Resp Syncy Virus RNA Qual PCR NEGATIVE (Negative); SARS COV2 PCR INHOUSE NEGATIVE (Negative)
--- NOTE | 2023-07-02 10:47 | PC.NURSE ---
md hernandez notified sat 91-94% w/o distress.
--- NOTE | 2023-07-02 11:20 | PC.NURSE ---
md gaming notified febrile (pt noted to feel warm, took rectal temp)
[2023-07-02 11:37] LABS: Appearance Urine Clear; Color Urine Yellow; Glucose Urine UA Negative (Negative); Leukocyte Esterase Urine Negative (Negative); Nitrite Urine Negative (Negative); Specific Gravity - Urine 1.015 (1.005-1.025); UMIC TRIGGER UACC YES; Urine Blood Negative (Negative); Urine Ketones Negative (Negative); Urine Protein 30 (1+) mg/dL (Neg-Trace)
--- NOTE | 2023-07-02 11:40 | PC.NURSE ---
md bennett made aware rr increased in low to upper 20s, no distress noted.
[2023-07-02 11:42] LABS: Bacteria Urine None Seen (None Seen); Hyaline Casts Urine 0-2 /LPF (0-2); RBC Urine 0-2 /HPF (0-2); Squamous Epithelial Cell Urine 0-2 /HPF (0-2); WBC Urine 0-5 /HPF (0-5)
--- NOTE | 2023-07-02 12:36 | PC.NURSE ---
changed, new pad, mando wipes, skin barrier cream applied to small open skin on buttocks, incont of stool/urine.
--- NOTE | 2023-07-02 12:39 | PC.NURSE ---
rt at bedside collecting abg.
[2023-07-02 12:54] LABS: ABG Base Excess 2.4 mmol/L; ABG HCO3 26 mmol/L (22-26); ABG pCO2 36 mmHg (32-45); ABG pH 7.45 (7.35-7.45); ABG pO2 59 mmHg (83-108)
--- NOTE | 2023-07-02 14:04 | P.HPHOSP_ITS ---
History of Present Illness Date of Service: 07/02/23 Attending physician on admission: Tee Hoffman Chief Complaint: AMS Pt is a 67-year-old male with a PMH significant for?HFrEF, CAD, HTN, insulin- dependent diabetes type 2, CKD 3, COPD, and PTSD who presents to the ED with?confusion and lethargy x3-4 days. Patient is alert oriented to self only and unaware of his situation and thus incapable of providing accurate HPI which is instead obtained from chart and provider review, as well as from family via telephone call. states patient has mild confusion at baseline and is scheduled for workup for possible dementia, but has been experiencing marked increase of confusion for the past few days. Patient has been seeing things that are not there, talking nonsensically, and not recognizing family and friends. reports patient presents this way whenever he has an infection. Apparently contacted PCP and was diagnosed with a UTI and started on Augmentin and azithromycin, though unclear if UA was ever obtained or diagnosed only through HPI. Yesterday patient was lethargic and stayed in bed all day, and could not stand up. also reports patient had been complaining of left- sided abdominal pain, but otherwise does not know of any other acute medical complaints from him. Has a hx of falls at home and apparently fell at home with possible head strike. In the ED pt was febrile up to 101.4, tachycardic up to 107, tachypneic up to 26, and hypertensive up to 192/78. Labs were grossly unremarkable and at patient's baseline. No leukocytosis. Stable H&H. No significant electrolyte abnormalities. Renal function baseline. Hepatic function baseline. UA negative for UTI. CXR showed no active cardiopulmonary disease. CT of head found no acute intracranial finding. CT of cervical spine found no acute fracture or traumatic malalignment. EKG demonstrated sinus tachycardia with RBBB with no evidence of significant ST elevations or depressions. Pt was treated with Zosyn. Pt will be admitted to the hospital for treatment and further evaluation of acute metabolic encephalopathy in the setting of possible right leg cellulitis with sepsis. Review of Systems 2 Review of Systems: Unable to obtain due to patient's mentation [facility] Medical History Anxiety Coronary artery disease NSTEMI (non-ST elevated myocardial infarction) Cardiomyopathy Sleep apnea Mini stroke Nephrolithiasis Neurogenic bladder Malignant neoplasm of overlapping sites of bladder Prostate cancer Family History Father CAD (coronary artery disease) Pacemaker Surgical History S/P cardiac cath History of cardiac cath Social History Household Members: Family Housing: House Do you presently have visiting nurse or other home services: Yes Unable to assess alcohol history related to: Unknown Alcohol intake: never Patient Tobacco Use Status: Former Tobacco user Quit Date: 2022 Tobacco use type: Cigarette Smoked in Last 30 Days: No Second Hand Smoke Exposure: Yes Use of substances other than those prescribed or required for medical reasons: Unknown Advance Directives: Yes Advance Directives on File: Yes Advance Directives Date on File: 04/12/21 service: Yes Current occupational status: disabled Meds Allergies Allergy/AdvReac Type Severity Reaction Status Date / Time quetiapine [From Seroquel] Allergy Mild LEG Verified 07/02/23 08:31 SWELLING haloperidol [From Haldol] Allergy Unknown Verified 07/02/23 08:31 onion [Onion] AdvReac Unknown NAUSEA & Verified 07/02/23 08:31 VOMITING PEPPERS AdvReac Mild NAUSEA & Uncoded 07/02/23 08:31 VOMITING Active Medications: Current Medications Piperacillin Sod/Tazobactam (Sod 3.375 gm/ Sodium Chloride) 50 mls @ 100 mls/hr IV ONCE ONE Stop: 07/02/23 14:10 Home Medications Medication Instructions Recorded Confirmed Last Taken Type aspirin 81 mg tablet,delayed 81 mg PO DAILY 04/04/21 07/02/23 03/21/22 History release insulin lispro 100 unit/mL 14 unit subcut TIDAC 04/04/21 07/02/23 03/21/22 History subcutaneous pen acetaminophen 325 mg tablet 650 mg PO QID PRN Pain 03/05/22 07/02/23 Unknown History insulin glargine 100 unit/mL (3 30 unit subcut BEDTIME 03/05/22 07/02/23 03/20/22 History mL) subcutaneous pen (Lantus Solostar U-100 Insulin) lidocaine 5 % topical patch 1 patch topical DAILY 1007/02/23 03/21/22 History multivitamin 1 tab PO DAILY 03/21/22 07/02/23 03/21/22 History atorvastatin 80 mg tablet 40 mg PO BEDTIME 08/11/22 07/02/23 Unknown History cholecalciferol (vitamin D3) 25 50 mcg PO DAILY 08/11/22 07/02/23 Unknown History mcg (1,000 unit) tablet furosemide 20 mg tablet 20 mg PO DAILY PRN weight gain 08/11/22 07/02/23 Unknown History lamotrigine 100 mg tablet 100 mg PO DAILY 08/11/22 07/02/23 Unknown History lisinopril 10 mg tablet 10 mg PO DAILY 08/11/22 07/02/23 Unknown History mirtazapine 30 mg tablet 30 mg PO .COMPLEX 08/11/22 07/02/23 Unknown History olanzapine 15 mg tablet 30 mg PO BEDTIME 08/11/22 07/02/23 Unknown History omeprazole 20 mg capsule,delayed 20 mg PO DAILY@0630 08/11/22 07/02/23 Unknown History release alprazolam 1 mg tablet 1 mg PO TID Anxiety 07/02/23 07/02/23 Unknown History carvedilol 3.125 mg tablet 3.125 mg PO BIDWM 07/02/23 07/02/23 Unknown History magnesium oxide 500 mg PO DAILY 07/02/23 07/02/23 Unknown History melatonin 3 mg tablet 3 mg PO BEDTIME 07/02/23 07/02/23 Unknown History Physical Exam 2 Vital Signs and Narrative: Vital Signs: Last Vital Signs Temp 101.4 F H 07/02/23 11:20 Pulse 107 H 07/02/23 13:36 Resp 22 H 07/02/23 13:36 BP 192/78 H 07/02/23 13:36 Pulse Ox 94 07/02/23 13:36 O2 Del Method Room Air 07/02/23 13:36 BMI result Body Mass Index 40.9 Constitutional: Alert, pleasantly confused. In no acute distress. Mental Status: Oriented to person only, not to place, time, or situation. Eyes: Pupils are equal, round, and reactive to light. Ear, Nose, and Throat: Oropharynx clear, mucous membranes moist. Ears and nose without deformities. Trachea midline. Respiratory: Clear to auscultation bilaterally. No wheezing, rales, or rhonchi. Cardiovascular: S1, S2, tachy. No murmurs, rubs, or gallops. Gastrointestinal: Abdomen soft, non-distended, with mild diffuse tenderness. Normal bowel sounds. Neurologic: Cranial nerves II-XII are grossly intact bilaterally. No focal neurological deficits. Moves all extremities spontaneously. Skin: Warm, dry. Musculoskeletal: No cyanosis or clubbing. Extremities: No edema. Chronic venous stasis changes with possible overlying cellulitis of right leg. As pictured below. Psychiatric: Pleasantly confused. Results Labs 07/02/23 09:35 07/02/23 09:35 Labs: Laboratory Results - last 24 hr 07/02/23 07/02/23 07/02/23 09:35 11:29 12:45 MCV 90.0 MCH 28.3 MCHC 31.5 RDW 13.8 Plt Count 181 MPV 10.1 Immature Gran % (Auto) 0.3 Neut % (Auto) 72.6 Lymph % (Auto) 15.7 L [place] % (Auto) 6.2 Eos % (Auto) 4.9 H Baso % (Auto) 0.3 Lymph # (Auto) 1.2 Boyd # (Auto) 0.5 Eos # (Auto) 0.4 Baso # (Auto) 0.0 Abs Immat Gran (auto) 0.02 Absolute Neuts (auto) 5.6 Absolute Nucleated RBC 0.000 Nucleated RBC % (auto) 0.0 O2 Saturation 90.0 ABG pH at Pt Temp 7.45 ABG pCO2 at Pt Temp 36 ABG pO2 at Pt Temp 59 L ABG HCO3 26 ABG Base Excess (Actual) 2.4 Anion Gap 14 Estim Creat Clear Calc 60.6 Estimated GFR 52 Random Glucose 135 H Calcium 9.3 Total Bilirubin 0.5 Direct Bilirubin 0.2 AST 22 ALT 20 Alkaline Phosphatase 116 Troponin I High Sens 8.6 D B-Natriuretic Peptide 94 Total Protein 7.6 Albumin 3.7 Lipase < 4 L Urine Color Yellow Urine Appearance Clear Urine pH 6.0 Ur Specific [place] 1.015 Urine Protein 30 (1+) H Urine Glucose (UA) Negative Urine Ketones Negative Urine Blood Negative Urine Nitrite Negative Ur Leukocyte Esterase Negative Urine RBC 0-2 Urine WBC 0-5 Ur Squamous Epith Cells 0-2 Urine Bacteria None Seen Hyaline Casts 0-2 Influenza Type A (PCR) NEGATIVE Influenza Type B (PCR) NEGATIVE RSV RNA Qual (PCR) NEGATIVE SARS-CoV-2 RNA (RT-PCR) NEGATIVE Imaging Radiologist's Impressions: Impressions Chest X-Ray 07/02/23 08:50 IMPRESSION: No active cardiopulmonary disease Cervical Spine CT 07/02/23 09:20 IMPRESSION: CT HEAD: No acute intracranial finding. CT CERVICAL SPINE: No cervical spine fracture or traumatic malalignment identified. Head CT 07/02/23 09:21 IMPRESSION: CT HEAD: No acute intracranial finding. CT CERVICAL SPINE: No cervical spine fracture or traumatic malalignment identified. Assessment and Plan (1) Metabolic encephalopathy: Status: Acute Plan Pt is a 67-year-old male with a PMH significant for?HFrEF, CAD, HTN, insulin- dependent diabetes type 2, CKD 3, COPD, and PTSD who presents to the ED with?confusion and lethargy x3-4 days. Pt will be admitted to the hospital for treatment and further evaluation of acute metabolic encephalopathy in the setting of possible right leg cellulitis with sepsis. Acute toxic metabolic encephalopathy in the setting of possible right leg cellulitis with sepsis Patient with worsening confusion past 3-4 days Pt with chronic venous stasis bilaterally with possible overlying cellulitis of right leg Pt meets sepsis criteria: Fever, tachycardia, tachypnea; lactic acid WNL at 1.5 Will empirically treat with vanco and Zosyn, started 07/02/2023 Follow cultures Monitor mentation Question of UTI Patient initially diagnosed with UTI by PCP earlier in the week and started on Augmentin and azithromycin Unclear if diagnosis was made from UA analysis or just via telephone call UA in ED negative for UTI Hold home abx, treat as above Abdominal pain reports pt had been complaining of left-sided abdominal pain the past few days Pt endorses some diffuse abd tenderness on exam Will check CT of abd/pelvis CAD Continue aspirin and statin HTN Continue carvedilol, lisinopril Insulin-dependent diabetes type 2 SSI, Lantus Diabetic diet COPD Not in acute exacerbation Pt apparently no longer on home O2 or home inhalers Duonebs prn HFrEF Not in acute exacerbation Continue home furosemide GERD Continue PPI Mood disorder Continue home meds Full Code Attending:?Dr. Hoffman DVT Prophylaxis: Lovenox Pt will require a hospitalization of at least two nights for treatment of?acute toxic metabolic encephalopathy in the setting of likely right leg cellulitis with sepsis. Given patient's altered mental status and meeting sepsis criteria: Patient will require hospitalization for administration of IV antibiotics and close monitoring labs, vitals, and mental status. Quality Stroke Does the patient have a stroke diagnosis?: No VTE Prior VTE?: No VTE Risk Level:: Medical - moderate - high VTE Device Contraindication: Treatment Not Indicated VTE Drug Contraindication: N/A - Med Ordered
[2023-07-02 14:27] LABS: ABG Refer to POC result
--- NOTE | 2023-07-02 14:37 | PC.NURSE ---
genaro benitez at bedside aware very diff stick, multiple staff tried, obtained 1 of 2 blood cultures- unable to obtain 2nd- per genaro benitez ok to run iv antibiotics at this time.
[2023-07-02] MEDS: Piperacillin Sodium/Tazobactam 3.375 GM in 0.9 % Sodium Chloride 50 ML IV ×2 (14:42→20:53)
[2023-07-02 14:59] LABS: Lactic Acid 1.5 mmol/L (0.5-2.0)
[2023-07-02 15:21] LABS: Ammonia 17 umol/L (13-55)
[2023-07-02] MEDS: carvediloL 3.125 MG TABLET PO (16:13)
[2023-07-02] MEDS: Enoxaparin Sodium 40 MG/0.4 ML SYRINGE SUBCUT (16:13)
[2023-07-02] MEDS: vancomycin/NS 2,000 MG/500 ML PLAST..BAG 250 MG IV (16:13)
[2023-07-02] MEDS: lisinopriL 10 MG TABLET PO (16:13)
--- NOTE | 2023-07-02 16:31 | PC.NURSE ---
no transporters on this shift at this time per charge- waiting for medical office technologist to be available.
--- NOTE | 2023-07-02 16:34 | PC.NURSE ---
report in- [employer] text group notified.
[2023-07-02] MEDS: Acetaminophen 325 MG TABLET 650 MG PO (16:41)
[2023-07-02] MEDS: 0.9 % Sodium Chloride Flush 3 ML SYRINGE IVFLUSH ×2 (16:42→23:47)
--- NOTE | 2023-07-02 17:13 | PHA.MEDREC ---
Pharmacy Consult ? Medication Reconciliation Pharmacy has completed the medication reconciliation. Spoke to patient's spouse to confirm meds and [facility]. Patient's confirms Wixela 500/50, Coreg 3.125 BIDWM, Lipitor 40mg, and lidocaine patch 5%, however [facility] list shows they were [facility] filled in August 2022. Left on med rec as confirmed them.
[2023-07-02 20:35] LABS: Glucose, Whole Blood 139 mg/dL (60-115)
[2023-07-02 20:35] LABS: Glucose, Whole Blood 229 mg/dL (60-115)
[2023-07-02] MEDS: Insulin Glargine,Hum.rec.anlog 100 UNIT/ML 10 ML VIAL 21 UNIT SUBCUT (20:53)
[2023-07-02] MEDS: Insulin Lispro 100 UNIT/ML 3 ML VIAL SUBCUT (20:54)
[2023-07-03] VITALS (8 sets, daily range): BP systolic 140–182; BP diastolic 61–92; PULSE 70–98; RESP 12–20; TEMP 36.6–37.2; O2SAT 94–99
[2023-07-03] MEDS: Acetaminophen 325 MG TABLET 650 MG PO (02:00)
[2023-07-03] MEDS: Piperacillin Sodium/Tazobactam 3.375 GM in 0.9 % Sodium Chloride 50 ML IV ×4 (02:30→20:27)
--- NOTE | 2023-07-03 03:34 | PC.RT ---
Pt refusing CPAP at this time; pt will need sitter due to inability to remove CPAP mask
[2023-07-03 06:26] LABS: Hematocrit 33.3 % (42.0-52.0); Hemoglobin 10.7 g/dl (14.0-18.0); Mean Corpuscular HGB Conc 32.1 g/dl (31.0-36.0); Mean Corpuscular Hemoglobin 28.5 pg (27.0-33.0); Mean Corpuscular Volume 88.6 fL (80.0-98.0); Mean Platelet Volume 10.3 fL (9.4-12.4); Platelet Count 143 X10*3/uL (160-400); Red Blood Count 3.76 X10*6/uL (4.60-5.80); Red Cell Distribution Width 13.5 % (11.0-16.0); White Blood Count 7.1 X10*3/uL (4.8-10.8)
[2023-07-03 06:37] LABS: Anion Gap 13 (12-20); Blood Urea Nitrogen 11 mg/dL (9-16); Calcium 8.8 mg/dL (8.4-10.2); Carbon Dioxide 25 mmol/L (22-29); Chloride 108 mmol/L (96-108); Creatinine Clr Calc Pharmacy 68.6; Estimated Glomerular Filt Rate 59; Glucose Random 125 mg/dL (60-115); Potassium 3.7 mmol/L (3.3-5.1); Sodium 142 mmol/L (135-145)
[2023-07-03 07:23] LABS: Glucose, Whole Blood 115 mg/dL (60-115)
--- NOTE | 2023-07-03 07:24 | HE.PHANOTE ---
Re: Vanco Patient's renal function improved, with SCr from 1.37 to 1.21. First dose was changed from 1,000mg once to 1,500mg q24h with a predicted AUC 476 now (from 331), and new predicted trough of 13.3.
[2023-07-03] MEDS: 0.9 % Sodium Chloride Flush 3 ML SYRINGE IVFLUSH ×3 (08:59→20:26)
[2023-07-03 11:15] LABS: Glucose, Whole Blood 138 mg/dL (60-115)
--- NOTE | 2023-07-03 11:51 | MHC.CM.PN ---
IMM DELIVERED, EXPLAINED TO /HCP [facility]BIGNIEW AT BEDSIDE, VERBALIZES UNDERSTANDING. PT UNABLE TO PARTICIPATE IN ASSESSMENT DUE TO CONFUSION. PT LIVES WITH SPOUSE. ACTIVE WITH [facility] FOR [facility]. USES [facility] FOR MOBILITY. BR MODIFIED. +HCP ON FILE. PCP AT [facility]: PT'S WOULD LIKE HIM TO RETURN HOME WITH [facility], OPPOSED TO STR. [facility] WILL TRANSPORT. CM WILL CONTINUE TO FOLLOW FOR ANY CHANGE TO DC PLAN/NEEDS.
[2023-07-03] MEDS: lisinopriL 10 MG TABLET PO ×2 (11:57→16:45)
[2023-07-03] MEDS: Aspirin Enteric Coated 81 MG TABLET.DR PO (11:57)
[2023-07-03] MEDS: lamoTRIgine 100 MG TABLET PO (11:57)
[2023-07-03] MEDS: Omeprazole 20 MG CAPSULE.DR PO (11:57)
[2023-07-03] MEDS: Cholecalciferol (Vitamin D3) 25 MCG TABLET 50 MCG PO (11:57)
[2023-07-03] MEDS: Multivitamin TABLET 1 TAB PO (11:57)
--- NOTE | 2023-07-03 12:16 | HO.PM.IMPN ---
Subjective Subjective Date of Service: 07/03/23 Interval History: f/u on metabolic encephalopathy, cellulitis of the leg Review of Systems Unable to obtain due to patient's mentation Physical Exam Vital Signs: Vital Signs: Last Vital Signs Temp 98.4 F 07/03/23 11:15 Pulse 77 07/03/23 11:15 Resp 14 07/03/23 11:15 BP 140/92 H 07/03/23 11:15 Pulse Ox 94 07/03/23 11:15 O2 Del Method Room Air 07/03/23 11:15 BMI result Body Mass Index 40.9 General: AO X 3, no acute distress Resp: CTA bilateral CVS: S1,S2,RRR GI: +BS, NT, no distention Skin: No rash, swollen right leg compare to left Neuro: motor grossly intact Psych: appropriate affect Objective Data Active Medications Acetaminophen (Acetaminophen 325 Mg Tablet) 650 mg PO Q6H PRN PRN Reason: Fever >100.4 or Pain, mild Last Admin: 07/03/23 02:00 Dose: 650 mg Documented By: FARIHA Albuterol/Ipratropium (Albuterol/Iprat 2.5/0.5mg 3 Ml Ampul.Neb) 3 ml INHALE RQ4H WHILE AWAKE PRN PRN Reason: Shortness of Breath/Wheezing Alprazolam (Alprazolam 0.5 Mg Tablet) 1 mg PO TID [facility] Aspirin (Aspirin Enteric Coated 81 Mg Tablet.) 81 mg PO DAILY [facility] Last Admin: 07/03/23 11:57 Dose: 81 mg Documented By: BALDO Atorvastatin Calcium (Atorvastatin Calcium 40 Mg Tablet) 40 mg PO BEDTIME [facility] Benzonatate (Benzonatate 100 Mg Capsule) 100 mg PO TID PRN PRN Reason: Cough Carvedilol (Carvedilol 3.125 Mg Tablet) 3.125 mg PO BIDWM [facility]; Protocol Dextrose (Dextrose 50 % 25 Gm/50 Ml Syringe) 25 gm IVPUSH Q15M PRN; Protocol PRN Reason: per Hypoglycemia Standing Ord. Docusate Sodium (Docusate Sodium 100 Mg Capsule) 100 mg PO DAILY PRN PRN Reason: Constipation Enoxaparin Sodium (Enoxaparin Sodium 40 Mg/0.4 Ml Syringe) 40 mg SUBCUT Q24H [facility] Last Admin: 07/02/23 16:13 Dose: 40 mg Documented By: HALLE Furosemide (Furosemide 20 Mg Tablet) 20 mg PO DAILY PRN; Protocol PRN Reason: weight gain Glucose (Glucose Gel 15 Gm Gel..Gram.) 15 gm PO Q15M PRN; Protocol PRN Reason: per Hypoglycemia Standing Ord. Piperacillin Sod/Tazobactam (Sod 3.375 gm/ Sodium Chloride) 50 mls @ 100 mls/hr IV Q6H [facility] Last Infusion: 07/03/23 09:39 Dose: Infused Documented By: BALDO Vancomycin HCl 1,500 mg/ (Sodium Chloride) 500 mls @ 333.333 mls/hr IV Q24H [facility] Insulin Glargine (Insulin Glargine,Hum.Rec.Anlog 100 Unit/Ml 10 Ml Vial) 21 unit SUBCUT BEDTIME [facility] Last Admin: 07/02/23 20:53 Dose: 21 unit Documented By: SHANA Insulin Glargine (Insulin Glargine,Hum.Rec.Anlog 100 Unit/Ml 10 Ml Vial) 30 unit SUBCUT BEDTIME [facility] Insulin Human Lispro (Insulin Lispro 100 Unit/Ml 3 Ml Vial) 0 unit SUBCUT QIDACHS [facility]; Protocol Last Admin: 07/03/23 11:16 Dose: Not Given Documented By: BALDO Non-Admin Reason: No Insulin Coverage Insulin Human Lispro (Insulin Lispro 100 Unit/Ml 3 Ml Vial) 14 unit SUBCUT TIDAC [facility] Last Admin: 07/03/23 11:50 Dose: Not Given Documented By: BALDO Non-Admin Reason: No Insulin Coverage Lamotrigine (Lamotrigine 100 Mg Tablet) 100 mg PO DAILY [facility] Last Admin: 07/03/23 11:57 Dose: 100 mg Documented By: BALDO Lidocaine (Lidocaine 4 % Patch Adh..Patch) 1 patch TRANSDERMA DAILY [facility] Lisinopril (Lisinopril 10 Mg Tablet) 10 mg PO DAILY [facility]; Protocol Last Admin: 07/03/23 11:57 Dose: 10 mg Documented By: BALDO Melatonin (Melatonin 3 Mg Tablet) 6 mg PO BEDTIME PRN PRN Reason: Insomnia Melatonin (Melatonin 3 Mg Tablet) 3 mg PO BEDTIME [facility] Mirtazapine (Mirtazapine 30 Mg Tablet) 15 mg PO BEDTIME [facility] Mirtazapine (Mirtazapine 30 Mg Tablet) 30 mg PO DAILY [facility] Multivitamins/Vitamin C (Multivitamin Tablet) 1 tab PO DAILY [facility] Last Admin: 07/03/23 11:57 Dose: 1 tab Documented By: BALDO Olanzapine (Olanzapine 10 Mg Tablet) 30 mg PO BEDTIME [facility] Omeprazole (Omeprazole 20 Mg Capsule.Dr) 20 mg PO DAILY@0630 [facility] Last Admin: 07/03/23 11:57 Dose: 20 mg Documented By: BALDO Ondansetron HCl (Ondansetron Hcl 4 Mg/2 Ml Vial) 4 mg IVPUSH Q8H PRN PRN Reason: Nausea and Vomiting Pharmacy Consult (Consult Rx Vancomycin Dosing) 1 each MISCELLANE DAILY PRN PRN Reason: Consult order Sodium Chloride (0.9 % Sodium Chloride Flush 3 Ml Syringe) 3 ml IVFLUSH QSHIFT [facility] Last Admin: 07/03/23 08:59 Dose: 3 ml Documented By: BALDO Vitamin D (Cholecalciferol (Vitamin D3) 25 Mcg Tablet) 50 mcg PO DAILY [facility] Last Admin: 07/03/23 11:57 Dose: 50 mcg Documented By: BALDO Labs 07/03/23 05:41 07/03/23 05:41 Labs: Laboratory Results - last 24 hr 07/02/23 07/02/23 07/02/23 12:45 14:40 15:03 MCV MCH MCHC RDW Plt Count MPV Absolute Nucleated RBC Nucleated RBC % (auto) O2 Saturation 90.0 ABG pH at Pt Temp 7.45 ABG pCO2 at Pt Temp 36 ABG pO2 at Pt Temp 59 L ABG HCO3 26 ABG Base Excess (Actual) 2.4 Anion Gap Estim Creat Clear Calc Estimated GFR POC Glucose Random Glucose Lactic Acid 1.5 Calcium Ammonia 17 07/02/23 07/02/23 07/03/23 18:05 20:31 05:41 MCV 88.6 MCH 28.5 MCHC 32.1 RDW 13.5 Plt Count 143 L MPV 10.3 Absolute Nucleated RBC 0.000 Nucleated RBC % (auto) 0.0 O2 Saturation ABG pH at Pt Temp ABG pCO2 at Pt Temp ABG pO2 at Pt Temp ABG HCO3 ABG Base Excess (Actual) Anion Gap 13 Estim Creat Clear Calc 68.6 Estimated GFR 59 POC Glucose 139 H 229 H Random Glucose 125 H Lactic Acid Calcium 8.8 Ammonia 07/03/23 07/03/23 07:11 11:11 MCV MCH MCHC RDW Plt Count MPV Absolute Nucleated RBC Nucleated RBC % (auto) O2 Saturation ABG pH at Pt Temp ABG pCO2 at Pt Temp ABG pO2 at Pt Temp ABG HCO3 ABG Base Excess (Actual) Anion Gap Estim Creat Clear Calc Estimated GFR POC Glucose 115 138 H Random Glucose Lactic Acid Calcium Ammonia Assessment and Plan (1) Metabolic encephalopathy: Status: Acute (2) Cellulitis of right leg: Status: Acute Plan Pt is a 67-year-old male with a PMH significant for?HFrEF, CAD, HTN, insulin-dependent diabetes type 2, CKD 3, COPD, and PTSD who presents to the ED with?confusion and lethargy x3-4 days. Pt will be admitted to the hospital for treatment and further evaluation of acute metabolic encephalopathy in the setting of possible right leg cellulitis with sepsis. Acute toxic metabolic encephalopathy in the setting cellulitis sepsis, negative ammonia, ct head no acute finding, overall improving. -continue treating underlying infection Question of UTI--partially treated, UA on this occasion was unremarkable. Continue Abx as above Abdominal pain--likely from constipation, ct no acute finding, bowel regimen CAD Continue aspirin and statin HTN Continue carvedilol, lisinopril Insulin-dependent diabetes type 2 SSI, Lantus Diabetic diet COPD Not in acute exacerbation Pt apparently no longer on home O2 or home inhalers Duonebs prn swollen elham leg-US to r/o dvt HFrEF Not in acute exacerbation Continue home furosemide GERD Continue PPI Mood disorder Continue home meds Full Code DVT Prophylaxis: Lovenox need for inpt: metabolic encephalopahy, cellulitis Quality Stroke Does the patient have a stroke diagnosis?: No VTE Prior VTE?: No VTE Risk Level:: Medical - moderate - high VTE Device Contraindication: Treatment Not Indicated VTE Drug Contraindication: N/A - Med Ordered
[2023-07-03] MEDS: ALPRAZolam 0.5 MG TABLET 1 MG PO ×2 (14:27→20:26)
[2023-07-03 15:51] LABS: Glucose, Whole Blood 162 mg/dL (60-115)
[2023-07-03] MEDS: carvediloL 3.125 MG TABLET PO (16:04)
[2023-07-03] MEDS: Insulin Lispro 100 UNIT/ML 3 ML VIAL SUBCUT ×2 (16:05→21:58)
[2023-07-03] MEDS: Enoxaparin Sodium 40 MG/0.4 ML SYRINGE SUBCUT (16:05)
--- NOTE | 2023-07-03 16:37 | PC.NURSE ---
BP high, notified, will recheck shortly, received PO BetaBlocker.
[2023-07-03] MEDS: vancomycin HCL 1,500 MG in 0.9 % Sodium Chloride 500 ML 333.33 MG IV (17:02)
[2023-07-03] MEDS: Mirtazapine 30 MG TABLET 15 MG PO (20:25)
[2023-07-03] MEDS: Melatonin 3 MG TABLET PO (20:26)
[2023-07-03] MEDS: Atorvastatin Calcium 40 MG TABLET PO (20:26)
[2023-07-03] MEDS: OLANZapine 10 MG TABLET 30 MG PO (20:26)
[2023-07-03 21:03] LABS: Glucose, Whole Blood 173 mg/dL (60-115)
[2023-07-03] MEDS: Insulin Glargine,Hum.rec.anlog 100 UNIT/ML 10 ML VIAL 21 UNIT SUBCUT (21:58)
[2023-07-04 00:22] VITALS: BP 172/68
[2023-07-04] MEDS: Piperacillin Sodium/Tazobactam 3.375 GM in 0.9 % Sodium Chloride 50 ML IV ×4 (02:34→20:34)
[2023-07-04 04:00] VITALS: BP 136/66; PULSE 95; RESP 16; TEMP 37.7; O2SAT 93
[2023-07-04] MEDS: Omeprazole 20 MG CAPSULE.DR PO (05:40)
[2023-07-04 06:50] VITALS: BP 152/67; PULSE 87; RESP 18; TEMP 36.6; O2SAT 98
[2023-07-04 07:11] LABS: Glucose, Whole Blood 113 mg/dL (60-115)
[2023-07-04] MEDS: lamoTRIgine 100 MG TABLET PO (07:35)
[2023-07-04] MEDS: Aspirin Enteric Coated 81 MG TABLET.DR PO (07:35)
[2023-07-04] MEDS: Multivitamin TABLET 1 TAB PO (07:35)
[2023-07-04] MEDS: carvediloL 6.25 MG TABLET PO ×2 (07:35→18:10)
[2023-07-04] MEDS: Cholecalciferol (Vitamin D3) 25 MCG TABLET 50 MCG PO (07:35)
[2023-07-04] MEDS: lisinopriL 20 MG TABLET PO (07:35)
[2023-07-04] MEDS: 0.9 % Sodium Chloride Flush 3 ML SYRINGE IVFLUSH ×3 (07:36→20:34)
[2023-07-04] MEDS: ALPRAZolam 0.5 MG TABLET 1 MG PO ×2 (07:36→15:16)
[2023-07-04] MEDS: Mirtazapine 30 MG TABLET PO (07:36)
[2023-07-04] MEDS: Lidocaine 4 % Patch ADH..PATCH 1 PATCH TRANSDERMA (07:38)
[2023-07-04 08:04] LABS: Creatinine Clr Calc Pharmacy 69.8; Estimated Glomerular Filt Rate > 60
--- NOTE | 2023-07-04 09:04 | P.PNIM_ITS ---
Subjective Subjective Date of Service: 07/04/23 Interval History: still has some underlying confusion, but ? baseline Physical Exam 2 Vital Signs: Vital Signs: Last Vital Signs Temp 98 F 07/04/23 06:50 Pulse 87 07/04/23 06:50 Resp 18 07/04/23 06:50 BP 152/67 H 07/04/23 06:50 Pulse Ox 98 07/04/23 06:50 O2 Del Method Nasal Cannula 07/04/23 06:50 O2 Flow Rate 2 07/04/23 04:00 BMI result Body Mass Index 40.9 General: AO X 3, no acute distress Resp: CTA bilateral CVS: S1,S2,RRR GI: +BS, NT, no distention Skin: No rash, swollen right leg compare to left Neuro: motor grossly intact Psych: appropriate affect Objective Data Active Medications Acetaminophen (Acetaminophen 325 Mg Tablet) 650 mg PO Q6H PRN PRN Reason: Fever >100.4 or Pain, mild Last Admin: 07/03/23 02:00 Dose: 650 mg Documented By: FARIHA Albuterol/Ipratropium (Albuterol/Iprat 2.5/0.5mg 3 Ml Ampul.Neb) 3 ml INHALE RQ4H WHILE AWAKE PRN PRN Reason: Shortness of Breath/Wheezing Alprazolam (Alprazolam 0.5 Mg Tablet) 1 mg PO TID [facility] Last Admin: 07/04/23 07:36 Dose: 1 mg Documented By: MARIANA Aspirin (Aspirin Enteric Coated 81 Mg Tablet.) 81 mg PO DAILY [facility] Last Admin: 07/04/23 07:35 Dose: 81 mg Documented By: MARIANA Atorvastatin Calcium (Atorvastatin Calcium 40 Mg Tablet) 40 mg PO BEDTIME [facility] Last Admin: 07/03/23 20:26 Dose: 40 mg Documented By: MAXIMUS Benzonatate (Benzonatate 100 Mg Capsule) 100 mg PO TID PRN PRN Reason: Cough Carvedilol (Carvedilol 6.25 Mg Tablet) 6.25 mg PO BIDWM [facility]; Protocol Last Admin: 07/04/23 07:35 Dose: 6.25 mg Documented By: MARIANA Dextrose (Dextrose 50 % 25 Gm/50 Ml Syringe) 25 gm IVPUSH Q15M PRN; Protocol PRN Reason: per Hypoglycemia Standing Ord. Docusate Sodium (Docusate Sodium 100 Mg Capsule) 100 mg PO DAILY PRN PRN Reason: Constipation Enoxaparin Sodium (Enoxaparin Sodium 40 Mg/0.4 Ml Syringe) 40 mg SUBCUT Q24H [facility] Last Admin: 07/03/23 16:05 Dose: 40 mg Documented By: KEANU Furosemide (Furosemide 20 Mg Tablet) 20 mg PO DAILY PRN; Protocol PRN Reason: weight gain Glucose (Glucose Gel 15 Gm Gel..Gram.) 15 gm PO Q15M PRN; Protocol PRN Reason: per Hypoglycemia Standing Ord. Piperacillin Sod/Tazobactam (Sod 3.375 gm/ Sodium Chloride) 50 mls @ 100 mls/hr IV Q6H [facility] Last Infusion: 07/04/23 08:14 Dose: Infused Documented By: MARIANA Vancomycin HCl 1,500 mg/ (Sodium Chloride) 500 mls @ 333.333 mls/hr IV Q24H [facility] Last Infusion: 07/03/23 18:58 Dose: Infused Documented By: EKANU Insulin Glargine (Insulin Glargine,Hum.Rec.Anlog 100 Unit/Ml 10 Ml Vial) 21 unit SUBCUT BEDTIME [facility] Last Admin: 07/03/23 21:58 Dose: 21 unit Documented By: MAXIMUS Insulin Human Lispro (Insulin Lispro 100 Unit/Ml 3 Ml Vial) 0 unit SUBCUT QIDACHS [facility]; Protocol Last Admin: 07/04/23 07:15 Dose: Not Given Documented By: MARIANA Non-Admin Reason: No Insulin Coverage Lamotrigine (Lamotrigine 100 Mg Tablet) 100 mg PO DAILY [facility] Last Admin: 07/04/23 07:35 Dose: 100 mg Documented By: MARIANA Lidocaine (Lidocaine 4 % Patch Adh..Patch) 1 patch TRANSDERMA DAILY [facility] Last Admin: 07/04/23 07:38 Dose: 1 patch Documented By: MARIANA Lisinopril (Lisinopril 20 Mg Tablet) 20 mg PO DAILY [facility]; Protocol Last Admin: 07/04/23 07:35 Dose: 20 mg Documented By: MARIANA Melatonin (Melatonin 3 Mg Tablet) 6 mg PO BEDTIME PRN PRN Reason: Insomnia Melatonin (Melatonin 3 Mg Tablet) 3 mg PO BEDTIME [facility] Last Admin: 07/03/23 20:26 Dose: 3 mg Documented By: MAXIMUS Mirtazapine (Mirtazapine 30 Mg Tablet) 15 mg PO BEDTIME [facility] Last Admin: 07/03/23 20:25 Dose: 15 mg Documented By: MAXIMUS Mirtazapine (Mirtazapine 30 Mg Tablet) 30 mg PO DAILY [facility] Last Admin: 07/04/23 07:36 Dose: 30 mg Documented By: MARIANA Multivitamins/Vitamin C (Multivitamin Tablet) 1 tab PO DAILY [facility] Last Admin: 07/04/23 07:35 Dose: 1 tab Documented By: MARIANA Olanzapine (Olanzapine 10 Mg Tablet) 30 mg PO BEDTIME [facility] Last Admin: 07/03/23 20:26 Dose: 30 mg Documented By: MAXIMUS Omeprazole (Omeprazole 20 Mg Capsule.Dr) 20 mg PO DAILY@0630 [facility] Last Admin: 07/04/23 05:40 Dose: 20 mg Documented By: MAXIMUS Ondansetron HCl (Ondansetron Hcl 4 Mg/2 Ml Vial) 4 mg IVPUSH Q8H PRN PRN Reason: Nausea and Vomiting Pharmacy Consult (Consult Rx Vancomycin Dosing) 1 each MISCELLANE DAILY PRN PRN Reason: Consult order Sodium Chloride (0.9 % Sodium Chloride Flush 3 Ml Syringe) 3 ml IVFLUSH QSHIFT [facility] Last Admin: 07/04/23 07:36 Dose: 3 ml Documented By: MARIANA Vitamin D (Cholecalciferol (Vitamin D3) 25 Mcg Tablet) 50 mcg PO DAILY [facility] Last Admin: 07/04/23 07:35 Dose: 50 mcg Documented By: MARIANA Labs 07/03/23 05:41 07/04/23 07:29 Labs: Laboratory Results - last 24 hr 07/03/23 07/03/23 07/03/23 11:11 15:45 20:42 Hold Purple Top Estim Creat Clear Calc Estimated GFR POC Glucose 138 H 162 H 173 H 07/04/23 07/04/23 06:50 07:29 Hold Purple Top SEE NOTE Estim Creat Clear Calc 69.8 Estimated GFR > 60 POC Glucose 113 Microbiology Microbiology Results: Microbiology 07/03/23 05:41 Blood Culture - Preliminary Blood - Venous No growth after 24 hours. 07/02/23 13:52 Blood Culture - Preliminary Blood - Venous No growth after 24 hours. Assessment and Plan (1) Metabolic encephalopathy: Status: Acute (2) Cellulitis of right leg: Status: Acute Plan Pt is a 67-year-old male with a PMH significant for?HFrEF, CAD, HTN, insulin- dependent diabetes type 2, CKD 3, COPD, and PTSD who presents to the ED with?confusion and lethargy x3-4 days. Pt will be admitted to the hospital for treatment and further evaluation of acute metabolic encephalopathy in the setting of possible right leg cellulitis with sepsis. Acute toxic metabolic encephalopathy in the setting cellulitis sepsis (redness of leg is better and mostly now chronic venous stasis), negative ammonia, ct head no acute finding, overall improving. -continue treating underlying infection, change Vancomycin to Doxycycline Question of UTI--partially treated, UA on this occasion was unremarkable. has been on Ceftriaxone, change to PO Ceftin Abdominal pain--likely from constipation, ct no acute finding, bowel regimen CAD Continue aspirin and statin HTN Continue carvedilol, lisinopril Insulin-dependent diabetes type 2 SSI, Lantus Diabetic diet COPD Not in acute exacerbation Pt apparently no longer on home O2 or home inhalers Duonebs prn swollen elham leg-US to r/o dvt HFrEF Not in acute exacerbation Continue home furosemide GERD Continue PPI Mood disorder Continue home meds Full Code DVT Prophylaxis: Lovenox need for inpt: metabolic encephalopahy, cellulitis ideally, proably will benefit from STR but doesn't want Quality Stroke Does the patient have a stroke diagnosis?: No VTE Prior VTE?: No VTE Risk Level:: Medical - moderate - high VTE Device Contraindication: Treatment Not Indicated VTE Drug Contraindication: N/A - Med Ordered
[2023-07-04 11:15] LABS: Glucose, Whole Blood 123 mg/dL (60-115)
[2023-07-04] MEDS: Enoxaparin Sodium 40 MG/0.4 ML SYRINGE SUBCUT (15:16)
[2023-07-04 15:46] VITALS: BP 144/68; PULSE 107; RESP 20; TEMP 37.2; O2SAT 96
[2023-07-04 16:36] LABS: Glucose, Whole Blood 119 mg/dL (60-115)
[2023-07-04 16:45] LABS: Vancomycin Random 11.9 mcg/mL (15-20)
[2023-07-04] MEDS: vancomycin HCL 1,500 MG in 0.9 % Sodium Chloride 500 ML 333.33 MG IV (18:09)
[2023-07-04 19:45] VITALS: BP 147/70; PULSE 76; RESP 20; TEMP 37; O2SAT 96
[2023-07-04 20:49] LABS: Glucose, Whole Blood 184 mg/dL (60-115)
[2023-07-04] MEDS: Insulin Lispro 100 UNIT/ML 3 ML VIAL SUBCUT (20:54)
[2023-07-04] MEDS: Insulin Glargine,Hum.rec.anlog 100 UNIT/ML 10 ML VIAL 21 UNIT SUBCUT (20:54)
[2023-07-04 23:46] VITALS: BP 135/65; PULSE 57; RESP 18; TEMP 36.4; O2SAT 96
[2023-07-05] MEDS: Piperacillin Sodium/Tazobactam 3.375 GM in 0.9 % Sodium Chloride 50 ML IV ×2 (02:52→08:05)
[2023-07-05 03:22] VITALS: BP 132/84; PULSE 75; RESP 18; TEMP 36.9; O2SAT 92
[2023-07-05] MEDS: Omeprazole 20 MG CAPSULE.DR PO (05:28)
[2023-07-05 06:09] LABS: Creatinine Clr Calc Pharmacy 64.9; Estimated Glomerular Filt Rate 56
[2023-07-05 06:55] VITALS: BP 158/77; PULSE 79; RESP 17; TEMP 36.6; O2SAT 97
[2023-07-05 07:08] LABS: Glucose, Whole Blood 76 mg/dL (60-115)
[2023-07-05 07:25] VITALS: O2SAT 92
[2023-07-05 07:26] LABS: Glucose, Whole Blood 81 mg/dL (60-115)
[2023-07-05 07:39] LABS: Anion Gap 12 (12-20); Blood Urea Nitrogen 14 mg/dL (9-16); Carbon Dioxide 26 mmol/L (22-29); Chloride 108 mmol/L (96-108); Glucose Random 74 mg/dL (60-115); Potassium 3.9 mmol/L (3.3-5.1); Sodium 142 mmol/L (135-145)
[2023-07-05] MEDS: lisinopriL 20 MG TABLET PO (07:59)
[2023-07-05] MEDS: Cholecalciferol (Vitamin D3) 25 MCG TABLET 50 MCG PO (07:59)
[2023-07-05] MEDS: Multivitamin TABLET 1 TAB PO (08:00)
[2023-07-05] MEDS: lamoTRIgine 100 MG TABLET PO (08:00)
[2023-07-05] MEDS: ALPRAZolam 0.5 MG TABLET 1 MG PO (08:00)
[2023-07-05] MEDS: 0.9 % Sodium Chloride Flush 3 ML SYRINGE IVFLUSH (08:00)
[2023-07-05] MEDS: Mirtazapine 30 MG TABLET PO (08:00)
[2023-07-05] MEDS: Aspirin Enteric Coated 81 MG TABLET.DR PO (08:00)
[2023-07-05] MEDS: carvediloL 6.25 MG TABLET PO (08:00)
[2023-07-05 08:10] LABS: Hematocrit 33.7 % (42.0-52.0); Hemoglobin 10.6 g/dl (14.0-18.0); Mean Corpuscular HGB Conc 31.5 g/dl (31.0-36.0); Mean Corpuscular Hemoglobin 28.3 pg (27.0-33.0); Mean Corpuscular Volume 89.9 fL (80.0-98.0); Mean Platelet Volume 10.8 fL (9.4-12.4); Platelet Count 178 X10*3/uL (160-400); Red Blood Count 3.75 X10*6/uL (4.60-5.80); Red Cell Distribution Width 13.4 % (11.0-16.0); White Blood Count 5.6 X10*3/uL (4.8-10.8)
--- NOTE | 2023-07-05 09:14 | PM.DS ---
DS: Providers Provider Date of Service: 07/05/23 Date of admission: 07/02/23 15:05 Primary care physician: Jessica Cardenas NP Consults: 07/02/23 22:09 Consult to Wound Care Routine Reason for consultation: bilateral buttocks redness,scrotal redness DS: Diagnosis Discharge Diagnosis (1) Metabolic encephalopathy: Status: Acute (2) Cellulitis of right leg: Status: Acute DS: Summary Hospital Course Hospital Course: Chief Complaint: AMS Pt is a 67-year-old male with a PMH significant for?HFrEF, CAD, HTN, insulin-dependent diabetes type 2, CKD 3, COPD, and PTSD who presents to the ED with?confusion and lethargy x3-4 days. Patient is alert oriented to self only and unaware of his situation and thus incapable of providing accurate HPI which is instead obtained from chart and provider review, as well as from family via telephone call. states patient has mild confusion at baseline and is scheduled for workup for possible dementia, but has been experiencing marked increase of confusion for the past few days. Patient has been seeing things that are not there, talking nonsensically, and not recognizing family and friends. reports patient presents this way whenever he has an infection. Apparently contacted PCP and was diagnosed with a UTI and started on Augmentin and azithromycin, though unclear if UA was ever obtained or diagnosed only through HPI. Yesterday patient was lethargic and stayed in bed all day, and could not stand up. also reports patient had been complaining of left-sided abdominal pain, but otherwise does not know of any other acute medical complaints from him. Has a hx of falls at home and apparently fell at home with possible head strike. In the ED pt was febrile up to 101.4, tachycardic up to 107, tachypneic up to 26, and hypertensive up to 192/78. Labs were grossly unremarkable and at patient's baseline. No leukocytosis. Stable H&H. No significant electrolyte abnormalities. Renal function baseline. Hepatic function baseline. UA negative for UTI. CXR showed no active cardiopulmonary disease. CT of head found no acute intracranial finding. CT of cervical spine found no acute fracture or traumatic malalignment. EKG demonstrated sinus tachycardia with RBBB with no evidence of significant ST elevations or depressions. Pt was treated with Zosyn. Pt will be admitted to the hospital for treatment and further evaluation of acute metabolic encephalopathy in the setting of possible right leg cellulitis with sepsis. hospital course: The patient presented with altered mental status (AMS) or encephalopathy, with a negative finding on the head CT scan. Despite a negative urine analysis (UA), there was suspicion of a urinary tract infection (UTI),. Additionally, cellulitis of the leg was noted and met criteria for sepsis. Treatment was initiated with intravenous antibiotics (Zosyn and Vancomycin), resulting in a positive response as the metabolic encephalopathy and confusion resolved. Blood cultures were negative. The patient will transition to oral Ceftin and Doxycycline for a 7-day course to treat the cellulitis, US of the legs were negative for dvt.. Although physical therapy recommended short-term rehabilitation (STR), the patient's prefers to take him back home. Time Attestation Discharge coordination time: Greater than 30 minutes Quality: Safe Use of Opioids Does Pt have an Active Cancer Diagnosis on the Problem List?: No Quality: Stroke Does the patient have a stroke diagnosis?: No Physical Exam Vital Signs: Vital Signs: Last Vital Signs Temp 98 F 07/05/23 06:55 Pulse 79 07/05/23 06:55 Resp 17 07/05/23 06:55 BP 158/77 H 07/05/23 06:55 Pulse Ox 92 07/05/23 07:25 O2 Del Method Room Air 07/05/23 07:25 O2 Flow Rate 2 07/05/23 06:55 BMI result Body Mass Index 40.9 General: AO X 3, no acute distress Resp: CTA bilateral CVS: S1,S2,RRR GI: +BS, NT, no distention Skin: No rash, swollen right leg compare to left Neuro: motor grossly intact Psych: appropriate affect DS: Data Data Completed and Pending Completed studies during hospitalization [Text1]: Procedures Assistance with Respiratory Ventilation, Less than 24 Consecutive Hours, Continuous Positive Airway Pressure (04/04/21) Labs on day of discharge: Laboratory Results - last 24 hr 07/04/23 07/04/23 07/04/23 11:07 16:19 16:28 WBC RBC Hgb Hct MCV MCH MCHC RDW Plt Count MPV Absolute Nucleated RBC Nucleated RBC % (auto) Hold Purple Top Sodium Potassium Chloride Carbon Dioxide Anion Gap BUN Creatinine Estim Creat Clear Calc Estimated GFR POC Glucose 123 H 119 H Random Glucose Calcium Random Vancomycin 11.9 L 07/04/23 07/05/23 07/05/23 20:45 05:27 06:55 WBC RBC Hgb Hct MCV MCH MCHC RDW Plt Count MPV Absolute Nucleated RBC Nucleated RBC % (auto) Hold Purple Top SEE NOTE Sodium 142 Potassium 3.9 Chloride 108 Carbon Dioxide 26 Anion Gap 12 BUN 14 Creatinine 1.28 Estim Creat Clear Calc 64.9 Estimated GFR 56 POC Glucose 184 H 76 Random Glucose 74 Calcium 9.0 Random Vancomycin 07/05/23 07/05/23 07:07 07:23 WBC 5.6 RBC 3.75 L Hgb 10.6 L Hct 33.7 L MCV 89.9 MCH 28.3 MCHC 31.5 RDW 13.4 Plt Count 178 MPV 10.8 Absolute Nucleated RBC 0.000 Nucleated RBC % (auto) 0.0 Hold Purple Top Sodium Potassium Chloride Carbon Dioxide Anion Gap BUN Creatinine Estim Creat Clear Calc Estimated GFR POC Glucose 81 Random Glucose Calcium Random Vancomycin Preliminary micro results at discharge 07/03/23 05:41 Blood Culture - Preliminary Blood - Venous No growth after 48 hours. 07/02/23 13:52 Blood Culture - Preliminary Blood - Venous No growth after 48 hours. Discharge Plan Discharge Anticipated Discharge Date/Time: 07/05/23 09:25 Patient Disposition: Home Health Service Discharge Diagnosis: Cellulitis, Sepsis, metabolic encephalopathy Referrals: [facility] [Outside] - 3-5 Days ([facility]) Jessica Cardenas, [employer] [Primary Care Provider] - 1 Week Discharge Medications: New cefuroxime axetil 250 mg tablet 250 mg PO BID 5 Days Qty: 10 0RF doxycycline hyclate 100 mg tablet 100 mg PO BID Qty: 10 0RF Continued atorvastatin 80 mg tablet 40 mg PO BEDTIME furosemide 20 mg tablet 20 mg PO DAILY PRN (Reason: weight gain) Rx Instructions: one tab as needed for wt gain 3+ lbs in 24 hours or 5 lbs in one week lisinopril 10 mg tablet 10 mg PO DAILY omeprazole 20 mg capsule,delayed release(DR/EC) 20 mg PO DAILY@0630 cholecalciferol (vitamin D3) 25 mcg (1,000 unit) tablet 50 mcg PO DAILY lamotrigine 100 mg tablet 100 mg PO DAILY olanzapine 15 mg tablet 30 mg PO BEDTIME mirtazapine 30 mg tablet 30 mg PO .COMPLEX Rx Instructions: 30 mg orally one tab in the evening and 1/2 tab QHS; aspirin 81 mg Tablet,Delayed Release (Dr/Ec) 81 mg PO DAILY insulin lispro 100 unit/mL Insulin Pen 14 unit SUBCUT TIDAC Hold Instructions: monitor blood sugar before meals and at night call to schedule follow up with PCP acetaminophen 325 mg Tablet 650 mg PO QID PRN (Reason: Pain) lidocaine 5 % Adhesive Patch,Medicated 1 patch TOPICAL DAILY Rx Instructions: leave on most painful area for up to 12 hrs insulin glargine [Lantus Solostar U-100 Insulin] 100 unit/mL (3 mL) Insulin Pen 30 unit SUBCUT BEDTIME multivitamin Tablet 1 tab PO DAILY alprazolam 1 mg Tablet 1 mg PO TID melatonin 3 mg Tablet 3 mg PO BEDTIME magnesium oxide 250 mg magnesium Tablet 500 mg PO DAILY carvedilol 3.125 mg tablet 3.125 mg PO BIDWM Rx Instructions: must administer with a meal/food Discharge Orders: Discharge Order (Routine); Ordered 07/05/23 Ordered By: William Feliciano Diet: Diabetic diet Activity on Discharge: As tolerated Stand Alone Forms: Patient Portal Discharge page Care Plan Goals: full recovery from encephalopathy and cellulitis and sepsis Health Concerns: sepsis, cellulitis, encephalpathy Plan of Treatment: take antibiotics (Cefuroxime and Doxycline) as recommended and folloow up with your Doctor in a week Assessment: see above
[2023-07-05 11:04] LABS: Glucose, Whole Blood 146 mg/dL (60-115)
--- NOTE | 2023-07-05 11:54 | MHC.CM.PN ---
DP: PT HAS BEEN MEDICALLY CLEARED FOR DC HOME WITH [facility]. [facility] UPDATED ON TODAY'S DC. RN AWARE. [facility] UPDATED ON PLAN AND AGREEABLE TO S TRANSPORT HOME AT 3 PM VIA SU[facility].
--- NOTE | 2023-07-05 14:43 | HO.WOUND ---
Wound Consult: Initial 67yr old?M admitted to [facility] [place] [place] on 07/02/23 - See progress notes and H&P for detailed history.? Wound consult placed for Scrotum and Buttocks redness noted on admission.? Patient agreeable to assessment and photo documentation.? Scrotum and buttocks assessed - no injury noted. At this time the intergluteal fold is noted for hyperpigmentation and scattered areas of pink pigmentation not consistent with pressure - tissue remains blanchable throughout. Scrotum assessed pigmentation WNL throughout - no open lesions observed. Pt does have baseline mixed incontinence - Barrier cream to be applied to protect from moisture and friction. Recommendations: 1. Turn and Reposition every 2 hours and as needed for patient comfort.? Use pillows or wedges to support off loading positions. 2. Off Load all bony prominences with use of pillows and heel boots if needed.? Apply Preventative foams where needed. ? 3. Monitor for incontinence and moisture control, use barrier creams when needed for prevention and treatment. 4.Order low air loss mattress. Re-consult wound care Nurse for wound deterioration or wound changes.
--- NOTE | 2023-07-06 10:13 | P.CDIM_ITS ---
PROVIDER RESPONSE TEXT: To clarify, the appropriate diagnosis supported by the clinical indicators: Other QUERY TEXT: PHYSICIAN'S DOCUMENTATION REQUEST Date of Query: 07/04/2023 09:24 AM EST Patient Name: Juma Oakley Admit Date: 07/02/2023 Dear William Feliciano, A review of the medical record indicates additional documentation may be needed. Please review below and update the documentation accordingly. Clinical Indicators: BMI: 40.9 115kg If possible, please provide an associated diagnosis related to the abnormal BMI, such as: Severe or Morbid Obesity Other Other (explain) Clinically unable to determine (explain) Thank you, Amber Palacios, CCS, CDIS Use of terms such as suspected, likely, concern for, or probable (associated with a specific diagnosi s that is being evaluated, monitored, or treated as if it exists) are acceptable and can be coded in the inpatient se tting, when documented at the time of discharge. Please use your independent medical judgment in providing your response. THIS QUERY IS PART OF THE PERMANENT MEDICAL RECORD
== END 2023-07-05 15:28 | disposition home health service (06) | DRG 871 ==
LOC: HO.ED 15:07 → HO.EDOVER 15:36 → HO.S3 16:29
PROVIDERS: Hospitalist; Admitting Provider Student in an Organized Health Care Education/Training Program; Emergency Provider Emergency Medicine; PCP Nurse Practitioner Adult Health; Visit Provider Internal Medicine
DX: A41.9 Sepsis, unspecified organism (principal); G92.8 Other toxic encephalopathy; N39.0 Urinary tract infection, site not specified; I50.22 Chronic systolic (congestive) heart failure; I13.0 Hypertensive heart and chronic kidney disease with heart failure and stage 1 through stage 4 chronic kidney disease, or unspecified chronic kidney disease; L03.115 Cellulitis of right lower limb; F39 Unspecified mood [affective] disorder; J44.9 Chronic obstructive pulmonary disease, unspecified; K59.00 Constipation, unspecified; K21.9 Gastro-esophageal reflux disease without esophagitis; I87.8 Other specified disorders of veins; E11.22 Type 2 diabetes mellitus with diabetic chronic kidney disease; N18.30 Chronic kidney disease, stage 3 unspecified; I25.10 Atherosclerotic heart disease of native coronary artery without angina pectoris; Z20.822 Contact with and (suspected) exposure to COVID-19; Z87.891 Personal history of nicotine dependence; Z79.4 Long term (current) use of insulin; Z79.82 Long term (current) use of aspirin; Z79.899 Other long term (current) drug therapy
CPT/HCPCS: 0241U; 36415; 70450; 71045; 72125; 74176; 80048; 80076; 80202; 81001; 82140; 82565; 82803; 82947; 83605; 83690; 83880; 84484; 85025; 85027; 87040; 93005; 93970; 97162; 97530; 99285; J1650; J2543; J3370; J3371

== ENCOUNTER → 2023-07-02 08:48 | Outpatient (BNV) | payer OTHER, SELFPAY | PROVIDERS: Admitting Provider Student in an Organized Health Care Education/Training Program; Emergency Provider Emergency Medicine; PCP Nurse Practitioner Adult Health; Visit Provider Internal Medicine | DX: R41.82 Altered mental status, unspecified (principal) | CPT/HCPCS: 93010 ==

== ENCOUNTER → 2023-07-02 15:05 | Outpatient (BNV) | payer OTHER, SELFPAY | PROVIDERS: Admitting Provider Student in an Organized Health Care Education/Training Program; Emergency Provider Emergency Medicine; PCP Nurse Practitioner Adult Health; Visit Provider Internal Medicine | DX: G93.41 Metabolic encephalopathy (principal); L03.115 Cellulitis of right lower limb | CPT/HCPCS: 99223; 99232; 99238 ==

== ENCOUNTER 2023-08-30 12:07 | Outpatient (AMB) | payer OTHER, SELFPAY ==
[2023-08-30 12:36] VITALS: BP 136/76; PULSE 72
--- NOTE | 2023-08-30 12:36 | MHC.OFFVIS ---
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 Allergies quetiapine [From Seroquel] Allergy (Mild, Verified 07/02/23 08:31) LEG SWELLING haloperidol [From Haldol] Allergy (Verified 07/02/23 08:31) Unknown onion [Onion] Adverse Reaction (Unknown, Verified 07/02/23 08:31) NAUSEA & VOMITING PEPPERS Adverse Reaction (Mild, Uncoded 07/02/23 08:31) NAUSEA & VOMITING Medication List - Last Reconciled 08/30/23 by Thanh Herman MD acetaminophen 650 mg PO QID PRN alprazolam 1 mg PO TID aspirin 81 mg PO DAILY atorvastatin 40 mg PO BEDTIME carvedilol 3.125 mg PO BIDWM cefuroxime axetil 250 mg PO BID 5 days cholecalciferol (vitamin D3) 50 mcg PO DAILY doxycycline hyclate 100 mg PO BID furosemide 20 mg PO DAILY PRN insulin glargine (Lantus Solostar U-100 Insulin) 30 units subcut BEDTIME insulin lispro 14 units subcut TIDAC lamotrigine 100 mg PO DAILY lidocaine 5% 1 patch topical DAILY lisinopril 10 mg PO DAILY magnesium oxide 500 mg PO DAILY melatonin 3 mg PO BEDTIME mirtazapine 30 mg orally one tab in the evening and 1/2 tab QHS; multivitamin 1 tab PO DAILY olanzapine 30 mg PO BEDTIME omeprazole 20 mg PO DAILY@0630 HPI Comments Details: Juma returns for follow-up regarding coronary artery disease. To recall, in April 2021, he was seen in consultation regarding elevated troponins. Multiple medical comorbidities including obesity, obstructive sleep apnea, diabetes, hypertension, CKD, COPD, CHF, PTSD among others. He was treated for respiratory failure and in that context had elevated troponins. Then sent to [facility] for cardiac catheterization that showed chronic total occlusion right coronary artery. He is being medically managed for stable CAD. From cardiac standpoint no specific complaints. 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 He also apparently has dementia and can not remember much. No chest pain or anything cardiac however. [facility] Medical History (Updated 07/13/23 @ 00:02 by Background Daemon) Diabetes Anxiety Coronary artery disease NSTEMI (non-ST elevated myocardial infarction) Cardiomyopathy Sleep apnea Mini stroke Nephrolithiasis Neurogenic bladder Malignant neoplasm of overlapping sites of bladder Prostate cancer Surgical History (Updated 07/13/23 @ 00:02 by Background Daemon) S/P cardiac cath History of cardiac cath Family History Father CAD (coronary artery disease) Pacemaker Social History Household Members: Spouse Housing: Unknown / Unable to assess Do you presently have visiting nurse or other home services: No Unable to assess alcohol history related to: Unknown Alcohol intake: never Patient Tobacco Use Status: Former Tobacco user Quit Date: 2022 Tobacco use type: Cigarette Second Hand Smoke Exposure: Yes Advance Directives Date on File: 04/12/21 service: Yes Current occupational status: disabled Review of Systems Const Denies chills, Denies fatigue, Denies fever(s), Denies frequent falls, Denies weakness, Denies weight gain and Denies weight loss ENT Denies dizziness Card Denies chest pain, Denies leg edema, Denies lightheadedness, Denies palpitations, Denies dyspnea, Denies dyspnea on exertion, Denies orthopnea and Denies other (loss of consciousness) Resp Denies cough, Denies dyspnea and Denies dyspnea on exertion GI Denies hematochezia and Denies change in stool character Musc Denies abnormal gait, Denies muscle weakness, Denies numbness, Denies radiating pain into limb and Denies tingling Neuro Denies abnormal gait, Denies dizziness, Denies frequent falls, Denies numbness, Denies tingling and Denies weakness Endo Denies fatigue and Denies palpitations Physical Exam Vital Signs: Last Vital Signs Pulse 72 08/30/23 12:36 BP 136/76 08/30/23 12:36 Const General: comfortable and no acute distress Orientation/consciousness: patient oriented x3 HEENT Other: Unremarkable Head: Yes normal to inspection Neck Neck: Yes normal visual inspection Chest Chest palpation & inspection: normal inspection of the chest Resp Auscultation: clear to auscultation bilaterally Cardio Palpation: normal PMI Heart sounds: S1 normal heart sound present, S2 normal heart sound present, no gallops, no murmurs and no rubs GI Palpation (GI): Soft to palpation Back/Spine/Pelvis Other: unremarkable Skin General skin exam: no rashes or lesions noted Neuro General: patient oriented x3 Extrem General: Yes normal to inspection Psych Mental Status: mental status grossly normal Assessment & Plan Assessment & Plan (1) Atherosclerotic cardiovascular disease: Code(s): I25.10 - Atherosclerotic heart disease of [place] coronary artery without angina pectoris Category: Medical (2) Cardiomyopathy: Code(s): I42.9 - Cardiomyopathy, unspecified Category: Medical Plan Cardiac studies reviewed. EKG with sinus rhythm, right bundle-branch block pattern. Possible old inferior infarct. Echocardiogram with LVEF 40%. Moderate diastolic dysfunction. In the cardiac catheterization, proximal right coronary artery with 100% stenosis. Chronic total occlusion. Mild disease in the proximal LAD. No significant disease in left main or circumflex. Overall, stable coronary disease/cardiomyopathy but no active cardiac symptoms; many comorbidities; poor mobility and essentially wheelchair-bound with possible dementia. Recommend mainly conservative care. [facility] and may continue the same. From the cardiac standpoint, list includes aspirin, beta-blockers, statins, low-dose diuretics. No specific changes made. Coding Level of Care Code Est Pt Level 4 (96317) Diagnoses Atherosclerotic cardiovascular disease I25.10 Cardiomyopathy I42.9
== END 2023-08-30 12:54 | disposition home or self-care (01) ==
PROVIDERS: PCP Nurse Practitioner Adult Health; Referring Provider Nurse Practitioner Adult Health; Visit Provider Internal Medicine
DX: I25.10 Atherosclerotic heart disease of native coronary artery without angina pectoris (principal); I42.9 Cardiomyopathy, unspecified
CPT/HCPCS: 99214

== ENCOUNTER → 2023-08-30 12:07 | Outpatient (BNVA) | payer OTHER, SELFPAY | PROVIDERS: PCP Nurse Practitioner Adult Health; Visit Provider Internal Medicine | DX: I25.10 Atherosclerotic heart disease of native coronary artery without angina pectoris (principal); I42.9 Cardiomyopathy, unspecified | CPT/HCPCS: 99212 ==

== ENCOUNTER 2023-11-01 18:02 | Inpatient (IN) | payer OTHER, SELFPAY ==
--- NOTE | ~2023-11-01 | XR_ITS ---
EXAMINATION: SINGLE VIEW CHEST, LEFT FOOT CLINICAL INFORMATION: Fever and question of infection second digit COMPARISON: Chest radiograph 07/02/2023 Left foot 09/06/2021 TECHNIQUE: Single view chest, 2 views left foot FINDINGS: Chest: The heart and pulmonary vessels appear normal. No evidence of CHF. Left basilar atelectasis is seen. Old healed left-sided rib fractures are present. No consolidations, effusions or pneumothorax. Left foot: Generalized osteopenia. Mild degenerative changes are present at the DIP joints and to a lesser extent PIP joints. There is some mild degenerative changes at the first MTP joint again seen is a tiny plantar calcaneal spur. XR/XR chest 1V IMPRESSION: 1. No acute intrathoracic disease. 2. No acute finding in the left foot. Degenerative changes as described above.
--- NOTE | ~2023-11-01 | CT_ITS ---
EXAMINATION: CT ABDOMEN AND PELVIS WITH CONTRAST CLINICAL INFORMATION: UTI with left CVA tenderness COMPARISON: CT abdomen pelvis 07/02/2023 TECHNIQUE: Multidetector volumetric images were obtained from the superior aspect of the liver through the pubic symphysis following administration 85 mL of Omnipaque 350 intravenous contrast. Sagittal and coronal reformatted images were obtained on the technologist's workstation. Oral contrast: No This CT examination was performed using dose optimization techniques as appropriate, variously including the following: *Automated exposure control *Adjustment of mA and/or kV according to patient size (this includes techniques or standardized protocols for targeted exams where dose is matched to indication/reason for exam; i.e. extremities or head) *Use of iterative reconstruction technique DLP: 1174 mGy-cm FINDINGS: LUNG BASES: Bibasilar atelectasis is present with some traction bronchiectasis, left greater than right. There are trace pleural effusions. Trace pericardial effusion. LIVER, GALLBLADDER, AND BILIARY TREE: The liver is normal in size, shape, and attenuation. No focal hepatic lesion is present. There is a stone present in the distal pancreatic duct near its junction with the common bile duct. The stone may actually be in the common bile duct no intrahepatic biliary ductal dilatation is seen The gallbladder I believe is present but contracted and small with no evidence of radiopaque gallstones, gallbladder wall thickening, or obvious pericholecystic inflammatory changes. PANCREAS: Chronic calcifications are present throughout the pancreas. There is dilatation of the pancreatic duct in the proximal pancreatic body measuring 1 cm. Stones have been present in this location dating back to at least 10/14/2013 SPLEEN: Unremarkable. ADRENAL GLANDS: Unremarkable. KIDNEYS AND URETERS: Mild prominence of the left renal collecting system compared with the right. Moderate renal vascular calcifications are seen. No definitive renal calculi. BLADDER: The bladder wall demonstrates marked symmetric thickening with some pericholecystic inflammatory change in the surrounding fat. GASTROINTESTINAL TRACT: A tiny hiatal hernia is present with The small and large bowel are unremarkable. The appendix is unremarkable. ABDOMINAL WALL: No significant hernia is appreciated. LYMPH NODES: Normal. VASCULAR: Severe calcific atherosclerotic changes are present in the aorta and iliofemoral vessels. A left iliac artery stent is present. There is no evidence of an abdominal aortic aneurysm. PELVIC VISCERA: Prostate normal size with fiducial markers. Seminal vesicles appear normal OSSEOUS STRUCTURES: Degenerative changes are present in the spine. Moderate compression fracture involving L4 with milder involving L5. CT/CT abdomen pelvis w IV con IMPRESSION: 1. Marked bladder wall thickening with some pericholecystic inflammatory change. Findings are consistent with cystitis. 2. Mild prominence of the left renal collecting system compared with the right. 3. Choledocholithiasis with stone in the distal pancreatic duct near its junction with the common bile duct. 4. Other incidental findings as described above. Fleischner guidelines were followed.
--- NOTE | ~2023-11-01 | XR_ITS ---
EXAMINATION: SINGLE VIEW CHEST, LEFT FOOT CLINICAL INFORMATION: Fever and question of infection second digit COMPARISON: Chest radiograph 07/02/2023 Left foot 09/06/2021 TECHNIQUE: Single view chest, 2 views left foot FINDINGS: Chest: The heart and pulmonary vessels appear normal. No evidence of CHF. Left basilar atelectasis is seen. Old healed left-sided rib fractures are present. No consolidations, effusions or pneumothorax. Left foot: Generalized osteopenia. Mild degenerative changes are present at the DIP joints and to a lesser extent PIP joints. There is some mild degenerative changes at the first MTP joint again seen is a tiny plantar calcaneal spur. XR/XR foot LT 2V IMPRESSION: 1. No acute intrathoracic disease. 2. No acute finding in the left foot. Degenerative changes as described above.
--- NOTE | ~2023-11-01 | US_ITS ---
EXAMINATION: US ABDOMEN LIMITED CLINICAL INFORMATION: Choledocholithiasis. Assess intrahepatic biliary system. COMPARISON: CT abdomen pelvis dated 11/01/2023. TECHNIQUE: Real-time imaging of the right upper quadrant abdominal viscera. FINDINGS: PANCREAS: The pancreas is not visualized. LIVER: The liver is normal in size. The liver contour is normal. Parenchymal echogenicity is normal. No focal hepatic lesion. There is no intrahepatic biliary duct dilatation seen. GALLBLADDER: The gallbladder is surgically absent. COMMON BILE DUCT: Normal in caliber measuring 0.7 cm in diameter. FREE FLUID: None. US/US abdomen limited IMPRESSION: The gallbladder is surgically absent. There is no intrahepatic biliary ductal dilation. The common bile duct measures up to 0.7 cm in diameter. No choledocholithiasis is seen.
--- NOTE | 2023-11-01 18:07 | ED_ITS ---
HPI - General Adult General Chief complaint: General Medical Stated complaint: GENERAL WEAKNESS Time Seen by Provider: 11/01/23 18:07 History of Present Illness ED Provider: Kelli ROWE narrative: The patient is a 68-year-old male who has been feeling unwell for about 2-3 days. He says he just feels generally unwell. He denies headache, sore throat, chest pain, shortness of breath, abdominal pain, nausea, vomiting. He denied pain in his extremities. At first he did not acknowledge but later he acknowledged discomfort with urination. He seemed weak this evening and an ambulance was called and he was brought to the hospital. On arrival here he was found to have a fever. The patient has had amputations of all of his digits on his hands. Apparently this was following a suicide attempt in which he sustained significant frostbite to his fingers. Related Data Home Medications ?Medication ?Instructions ?Recorded ?Confirmed aspirin 81 mg tablet,delayed 81 mg PO DAILY 04/04/21 08/30/23 release insulin lispro 100 unit/mL 14 unit subcut TIDAC 04/04/21 08/30/23 subcutaneous pen acetaminophen 325 mg tablet 650 mg PO QID PRN Pain 03/05/22 08/30/23 insulin glargine 100 unit/mL (3 30 unit subcut BEDTIME 03/05/22 08/30/23 mL) subcutaneous pen (Lantus Solostar U-100 Insulin) lidocaine 5 % topical patch 1 patch topical DAILY 03/05/22 08/30/23 multivitamin 1 tab PO DAILY 03/21/22 08/30/23 atorvastatin 80 mg tablet 40 mg PO BEDTIME 08/11/22 08/30/23 cholecalciferol (vitamin D3) 25 50 mcg PO DAILY 08/11/22 08/30/23 mcg (1,000 unit) tablet furosemide 20 mg tablet 20 mg PO DAILY PRN weight gain 08/11/22 08/30/23 lamotrigine 100 mg tablet 100 mg PO DAILY 08/11/22 08/30/23 lisinopril 10 mg tablet 10 mg PO DAILY 08/11/22 08/30/23 mirtazapine 30 mg tablet 30 mg PO .COMPLEX 08/11/22 08/30/23 olanzapine 15 mg tablet 30 mg PO BEDTIME 08/11/22 08/30/23 omeprazole 20 mg capsule,delayed 20 mg PO DAILY@0630 08/11/22 08/30/23 release alprazolam 1 mg tablet 1 mg PO TID Anxiety 07/02/23 08/30/23 carvedilol 3.125 mg tablet 3.125 mg PO BIDWM 07/02/23 08/30/23 magnesium oxide 500 mg PO DAILY 07/02/23 08/30/23 melatonin 3 mg tablet 3 mg PO BEDTIME 07/02/23 08/30/23 Previous Rx's ?Medication ?Instructions ?Recorded cefuroxime axetil 250 mg tablet 250 mg PO BID 5 days #10 tabs 07/05/23 doxycycline hyclate 100 mg tablet 100 mg PO BID #10 tabs 07/05/23 Allergies Allergy/AdvReac Type Severity Reaction Status Date / Time quetiapine [From Seroquel] Allergy Mild LEG Verified 11/01/23 18:15 SWELLING haloperidol [From Haldol] Allergy Unknown Verified 11/01/23 18:15 onion [Onion] AdvReac Unknown NAUSEA & Verified 11/01/23 18:15 VOMITING PEPPERS AdvReac Mild NAUSEA & Uncoded 11/01/23 18:15 VOMITING Review of Systems 2 Review of Systems: Yes all other systems are reviewed and are negative [facility] Past Medical History Medical History (Updated 11/01/23 @ 22:34 by Leon Pereira MD) Diabetes Anxiety Coronary artery disease NSTEMI (non-ST elevated myocardial infarction) Cardiomyopathy Sleep apnea Mini stroke Nephrolithiasis Neurogenic bladder Malignant neoplasm of overlapping sites of bladder Prostate cancer Surgical History (Updated 07/13/23 @ 00:02 by Grabiel Guzman) S/P cardiac cath History of cardiac cath Family History Family History Father CAD (coronary artery disease) Pacemaker Social History Social History Household Members: Spouse Housing: Unknown / Unable to assess Do you presently have visiting nurse or other home services: No Unable to assess alcohol history related to: Unknown Alcohol intake: never Patient Tobacco Use Status: Former Tobacco user Tobacco use type: Cigarette Smoked in Last 30 Days: No Second Hand Smoke Exposure: Yes Use of substances other than those prescribed or required for medical reasons: No Advance Directives: Yes Advance Directives on File: Yes Advance Directives Date on File: 04/12/21 service: Yes Current occupational status: disabled Physical Exam ED Vital Signs: Vital Signs - 24 hr 11/01/23 18:13 11/01/23 20:44 11/01/23 21:55 Temperature 101.5 F H 101.5 F H 100.1 F Pulse Rate 123 H 114 H 110 H Respiratory Rate 18 19 18 Blood Pressure 155/87 H 154/76 H 138/57 L Pulse Oximetry 98 98 97 Oxygen Delivery Method Room Air Room Air 11/01/23 22:14 Temperature 100.1 F Pulse Rate 109 H Respiratory Rate 18 Blood Pressure 155/87 H Pulse Oximetry 98 Oxygen Delivery Method Room Air BMI result Body Mass Index 35.3 Const Other: The patient is a chronically ill-appearing man who was awake and alert. He does not seem in pain or respiratory distress. He looked somewhat unwell. HENMT Other: Face is symmetrical. Mucous membranes moist. Eyes Other: Pupils are round equal, conjunctivae clear Neck Other: No JVD, no neck swelling, no adenopathy Resp Other: Lungs are clear bilaterally Cardio Rate: tachycardic Rhythm: regular rhythm Heart sounds: S1 normal heart sound present and S2 normal heart sound present GI Other: Abdomen is soft and nontender Back/Spine/Pelvis Other: Left sided CVA percussion tenderness Skin Other: There is some mild excoriation to the skin of his smaller toes but no definite cellulitis. Neuro Other: The patient is awake and alert. He seems reasonably well oriented. Face is symmetrical. Eye movements are intact. Speech is clear. He has symmetrical tone in his extremities. Extrem Other: The patient has deformities to both hands. He seems to have had a variety of different kinds of amputations to all of his fingers. On the feet however he has all of his digits. The left 2nd digit has some mild excoriation to the dorsal aspect of the toe without brittny cellulitis. Medications Administered Discontinued Medications Generic Name Dose Route Start Last Admin Trade Name Freq PRN Reason Stop Dose Admin Acetaminophen 975 mg 11/01/23 20:39 11/01/23 20:45 Acetaminophen 325 Mg Tablet PO 11/01/23 20:40 975 mg ONCE ONE Administration Sodium Chloride 1,000 mls @ 999 mls/hr 11/01/23 18:30 11/01/23 21:50 Ns IV 11/01/23 19:30 Infused .Q1H1M HUGO Infusion Piperacillin Sod/Tazobactam 100 mls @ 200 mls/hr 11/01/23 18:49 11/01/23 20:32 Sod 4.5 gm/ Sodium Chloride IV 11/01/23 19:18 Infused ONCE ONE Infusion Sodium Chloride 1,000 mls @ 999 mls/hr 11/01/23 20:45 11/01/23 22:18 Ns IV 11/01/23 21:45 Infused .Q1H1M HUGO Infusion Ceftriaxone Sodium 1 gm/ 50 mls @ 100 mls/hr 11/01/23 21:30 11/01/23 22:18 Sodium Chloride IV 11/01/23 21:59 Infused ONCE ONE Infusion Iohexol 85 ml 11/01/23 21:10 11/01/23 21:12 Iohexol 350 Mg/Ml 100 Ml Infus..Btl IV 11/01/23 21:11 85 ml ONCE ONE Administration Medical Decision Making Medical Decision Making [facility] Narrative: The patient is a 68-year-old male who presented with 2-3 days of not feeling well. Initially he did not give any symptoms to suggest a source of his fever. He was tachycardic with a heart rate of 123. His rectal temperature was 101.5 degrees. The patient had labs sent and was given empiric antibiotics. He was initially given piperacillin/tazobactam and I also ordered vancomycin. Labs showed a mild white count elevation of his neutrophils. A VBG was unremarkable with a pH of 7.39 and a pCO2 40. His metabolic panel was unremarkable. His carbon dioxide was 23. His anion gap was 13. His GFR is 50 which is not far from his baseline. C-reactive protein mildly elevated at 4.6. Urinalysis shows positive nitrites, large leukocyte esterase and greater than 50 white cells. This would suggest urinary source of fever. The patient acknowledges dysuria. Although clinically he seemed to have some left-sided CVA percussion tenderness a CT scan does not confirm definite pyelonephritis although there is some fullness of the left collecting system compared to the right. The CT scan does show significant findings of cystitis. There is an incidental finding on the CT scan of choledocholithiasis. Patient has had a cholecystectomy. There was apparently a stone in the distal pancreatic duct near its junction with the common bile duct the patient has no upper abdominal pain or tenderness and his LFTs are normal. This therefore seems to be an incidental finding. Given the patient's age and comorbidities, given his fever and persistent mild tachycardia he will be admitted for further care. The patient was disappointed. He had hoped to go home. Lab Data 11/01/23 18:36 11/01/23 18:36 Labs: Lab Results 11/01/23 11/01/23 11/01/23 Range/Units 18:36 18:39 19:27 WBC 11.9 H (4.8-10.8) X10*3/uL RBC 4.20 L (4.60-5.80) X10*6/uL Hgb 12.3 L (14.0-18.0) g/dl Hct 37.6 L (42.0-52.0) % MCV 89.5 (80.0-98.0) fL MCH 29.3 (27.0-33.0) pg MCHC 32.7 (31.0-36.0) g/dl RDW 14.3 (11.0-16.0) % Plt Count 163 (160-400) X10*3/uL MPV 9.6 (9.4-12.4) fL Immature Gran % (Auto) 0.3 (0.0-0.4) % Neut % (Auto) 84.4 H (45-73) % Lymph % (Auto) 6.3 L (20-40) % [place] % (Auto) 5.4 (2-11) % Eos % (Auto) 3.5 (0-4) % Baso % (Auto) 0.1 (0-2) % Lymph # (Auto) 0.8 L (1.2-4.9) X10*3/uL [place] # (Auto) 0.6 (0.1-1.2) X10*3/uL Eos # (Auto) 0.4 (0.0-0.4) X10*3/uL Baso # (Auto) 0.0 (0.0-0.2) X10*3/uL Abs Immat Gran (auto) 0.04 H (0.00-0.03) X10*3/uL Absolute Neuts (auto) 10.0 H (2.0-8.3) x10*3/uL Absolute Nucleated RBC 0.000 (0.0-0.012) X10*3/uL Nucleated RBC % (auto) 0.0 (0.0-0.2) /100WBC VBG pH 7.39 (7.32-7.43) VBG pCO2 40 mmHg VBG pO2 39 mmHg VBG HCO3 25 (22-26) mmol/L VBG O2 Saturation 65.0 % VBG Base Excess 0.3 mmol/L Sodium 136 (135-145) mmol/L Potassium 4.9 D (3.3-5.1) mmol/L Chloride 105 (96-108) mmol/L Carbon Dioxide 23 (22-29) mmol/L Anion Gap 13 (12-20) BUN 22 H (9-16) mg/dL Creatinine 1.40 (0.5-1.4) mg/dL Estim Creat Clear Calc 63.2 Estimated GFR 50 Random Glucose 121 H (60-115) mg/dL Lactic Acid 1.3 (0.5-2.0) mmol/L Calcium 9.8 D (8.4-10.2) mg/dL Magnesium 1.5 L (1.6-2.6) mg/dL Total Bilirubin 0.4 (0.0-1.0) mg/dL Direct Bilirubin 0.2 (0.0-0.5) mg/dL AST 27 (5-37) U/L ALT 33 (0-40) U/L Alkaline Phosphatase 119 H (39-117) U/L C-Reactive Protein 4.60 H (< or = 0.50) mg/dL Total Protein 7.7 (6.5-8.0) g/dL Albumin 4.0 (3.5-5.0) g/dL Urine Color Urine Appearance Urine pH (5.0-9.0) Ur Specific [place] (1.005-1.025) Urine Protein (Neg-Trace) mg/dL Urine Glucose (UA) (Negative) mg/dL Urine Ketones (Negative) mg/dL Urine Blood (Negative) Urine Nitrite (Negative) Ur Leukocyte Esterase (Negative) Urine RBC (0-2) /HPF Urine WBC (0-5) /HPF Ur Squamous Epith Cells (0-2) /HPF Urine Bacteria (None Seen) Hyaline Casts (0-2) /LPF Influenza Type A (PCR) NEGATIVE (Negative) Influenza Type B (PCR) NEGATIVE (Negative) RSV RNA Qual (PCR) NEGATIVE (Negative) SARS-CoV-2 RNA (RT-PCR) NEGATIVE (Negative) 11/01/23 Range/Units 20:14 WBC (4.8-10.8) X10*3/uL RBC (4.60-5.80) X10*6/uL Hgb (14.0-18.0) g/dl Hct (42.0-52.0) % MCV (80.0-98.0) fL MCH (27.0-33.0) pg MCHC (31.0-36.0) g/dl RDW (11.0-16.0) % Plt Count (160-400) X10*3/uL MPV (9.4-12.4) fL Immature Gran % (Auto) (0.0-0.4) % Neut % (Auto) (45-73) % Lymph % (Auto) (20-40) % [place] % (Auto) (2-11) % Eos % (Auto) (0-4) % Baso % (Auto) (0-2) % Lymph # (Auto) (1.2-4.9) X10*3/uL [place] # (Auto) (0.1-1.2) X10*3/uL Eos # (Auto) (0.0-0.4) X10*3/uL Baso # (Auto) (0.0-0.2) X10*3/uL Abs Immat Gran (auto) (0.00-0.03) X10*3/uL Absolute Neuts (auto) (2.0-8.3) x10*3/uL Absolute Nucleated RBC (0.0-0.012) X10*3/uL Nucleated RBC % (auto) (0.0-0.2) /100WBC VBG pH (7.32-7.43) VBG pCO2 mmHg VBG pO2 mmHg VBG HCO3 (22-26) mmol/L VBG O2 Saturation % VBG Base Excess mmol/L Sodium (135-145) mmol/L Potassium (3.3-5.1) mmol/L Chloride (96-108) mmol/L Carbon Dioxide (22-29) mmol/L Anion Gap (12-20) BUN (9-16) mg/dL Creatinine (0.5-1.4) mg/dL Estim Creat Clear Calc Estimated GFR Random Glucose (60-115) mg/dL Lactic Acid (0.5-2.0) mmol/L Calcium (8.4-10.2) mg/dL Magnesium (1.6-2.6) mg/dL Total Bilirubin (0.0-1.0) mg/dL Direct Bilirubin (0.0-0.5) mg/dL AST (5-37) U/L ALT (0-40) U/L Alkaline Phosphatase (39-117) U/L C-Reactive Protein (< or = 0.50) mg/dL Total Protein (6.5-8.0) g/dL Albumin (3.5-5.0) g/dL Urine Color Yellow Urine Appearance Cloudy Urine pH 6.0 (5.0-9.0) Ur Specific [place] 1.010 (1.005-1.025) Urine Protein 30 (1+) H (Neg-Trace) mg/dL Urine Glucose (UA) 500 H (Negative) mg/dL Urine Ketones Negative (Negative) mg/dL Urine Blood Moderate (2+) H (Negative) Urine Nitrite Positive H (Negative) Ur Leukocyte Esterase Large (3+) H (Negative) Urine RBC 11-20 H (0-2) /HPF Urine WBC >50 H (0-5) /HPF Ur Squamous Epith Cells 0-2 (0-2) /HPF Urine Bacteria Trace (None Seen) Hyaline Casts 0-2 (0-2) /LPF Influenza Type A (PCR) (Negative) Influenza Type B (PCR) (Negative) RSV RNA Qual (PCR) (Negative) SARS-CoV-2 RNA (RT-PCR) (Negative) Discharge Plan Discharge Prescriptions: No Action atorvastatin 80 mg tablet 40 mg PO BEDTIME furosemide 20 mg tablet 20 mg PO DAILY PRN (Reason: weight gain) Rx Instructions: one tab as needed for wt gain 3+ lbs in 24 hours or 5 lbs in one week lisinopril 10 mg tablet 10 mg PO DAILY omeprazole 20 mg capsule,delayed release(DR/EC) 20 mg PO DAILY@0630 cholecalciferol (vitamin D3) 25 mcg (1,000 unit) tablet 50 mcg PO DAILY lamotrigine 100 mg tablet 100 mg PO DAILY olanzapine 15 mg tablet 30 mg PO BEDTIME mirtazapine 30 mg tablet 30 mg PO .COMPLEX Rx Instructions: 30 mg orally one tab in the evening and 1/2 tab QHS; aspirin 81 mg Tablet,Delayed Release (Dr/Ec) 81 mg PO DAILY insulin lispro 100 unit/mL Insulin Pen 14 unit SUBCUT TIDAC Hold Instructions: monitor blood sugar before meals and at night call to schedule follow up with PCP acetaminophen 325 mg Tablet 650 mg PO QID PRN (Reason: Pain) lidocaine 5 % Adhesive Patch,Medicated 1 patch TOPICAL DAILY Rx Instructions: leave on most painful area for up to 12 hrs insulin glargine [Lantus Solostar U-100 Insulin] 100 unit/mL (3 mL) Insulin Pen 30 unit SUBCUT BEDTIME multivitamin Tablet 1 tab PO DAILY alprazolam 1 mg Tablet 1 mg PO TID melatonin 3 mg Tablet 3 mg PO BEDTIME magnesium oxide 250 mg magnesium Tablet 500 mg PO DAILY carvedilol 3.125 mg tablet 3.125 mg PO BIDWM Rx Instructions: must administer with a meal/food cefuroxime axetil 250 mg tablet 250 mg PO BID 5 Days Qty: 10 0RF doxycycline hyclate 100 mg tablet 100 mg PO BID Qty: 10 0RF Print Language: [place]ian
[2023-11-01 18:13] VITALS: BP 130/90; BP 155/87; PULSE 100; PULSE 123; RESP 18; TEMP 38.6; O2SAT 98; BMI 35.3
--- NOTE | 2023-11-01 18:19 | ECG_ITS ---
Test Reason : WEAKNESS Blood Pressure : / mmHG Vent. Rate : 123 BPM Atrial Rate : 123 BPM P-R Int : 170 ms QRS Dur : 132 ms QT Int : 300 ms P-R-T Axes : 007 014 017 degrees QTc Int : 429 ms Sinus tachycardia Right bundle branch block Inferior infarct (cited on or before 19-MAY-2023) Abnormal ECG When compared with ECG of 02-JUL-2023 09:16, No significant change was found Referred By: Leon Pereira Electronically Signed By:OLIVIA MEDINA MD
[2023-11-01 18:42] LABS: MANUAL DIFF FLAG NO
[2023-11-01 18:45] LABS: Basophils Percent Auto 0.1 % (0-2); Eosinophils Absolute Auto 0.4 X10*3/uL (0.0-0.4); Eosinophils Percent Auto 3.5 % (0-4); Hematocrit 37.6 % (42.0-52.0); Hemoglobin 12.3 g/dl (14.0-18.0); Imm Gran Abs Auto 0.04 X10*3/uL (0.00-0.03); Imm Gran Pct Auto 0.3 % (0.0-0.4); Lymphocytes Absolute Auto 0.8 X10*3/uL (1.2-4.9); Lymphocytes Percent Auto 6.3 % (20-40); Mean Corpuscular HGB Conc 32.7 g/dl (31.0-36.0); Mean Corpuscular Hemoglobin 29.3 pg (27.0-33.0); Mean Corpuscular Volume 89.5 fL (80.0-98.0); Mean Platelet Volume 9.6 fL (9.4-12.4); Monocytes Absolute Auto 0.6 X10*3/uL (0.1-1.2); Monocytes Percent Auto 5.4 % (2-11); Neutrophils Percent Auto 84.4 % (45-73); Platelet Count 163 X10*3/uL (160-400); Red Cell Distribution Width 14.3 % (11.0-16.0); White Blood Count 11.9 X10*3/uL (4.8-10.8)
[2023-11-01 18:47] LABS: VBG Base Excess 0.3 mmol/L; VBG HCO3 25 mmol/L (22-26); VBG pCO2 40 mmHg; VBG pH 7.39 (7.32-7.43); VBG pO2 39 mmHg
[2023-11-01] MEDS: 0.9 % Sodium Chloride 1,000 ML 999 ML IV ×2 (18:47→20:45)
[2023-11-01 18:49] LABS: Venous Blood Gas Refer to POC result
[2023-11-01 18:59] LABS: Lactic Acid 1.3 mmol/L (0.5-2.0)
--- NOTE | 2023-11-01 18:59 | PC.NURSE ---
Pt comes from home for ? infected left middle toe. Was seen by his pcp who said the toe isn't infected and lab work was all negative. Redness noted to the area, no drainage/visible tears. Pt a/ox4, respirations even and unlabored, S1 and S2 heard, abdomen soft, non-tender. 101.6 rectal temp. 20g IV in right AC. Labs drawn. Waiting on second set of cultures due to pt being hard stick. resting in bed quietly, call pina within reach.
[2023-11-01 19:04] LABS: Alanine Aminotransferase 33 U/L (0-40); Alkaline Phosphatase 119 U/L (39-117); Anion Gap 13 (12-20); Aspartate Amino Transferase 27 U/L (5-37); Bilirubin Direct 0.2 mg/dL (0.0-0.5); Bilirubin Total 0.4 mg/dL (0.0-1.0); Blood Urea Nitrogen 22 mg/dL (9-16); Calcium 9.8 mg/dL (8.4-10.2); Carbon Dioxide 23 mmol/L (22-29); Chloride 105 mmol/L (96-108); Creatinine Clr Calc Pharmacy 63.2; Estimated Glomerular Filt Rate 50; Glucose Random 121 mg/dL (60-115); Magnesium 1.5 mg/dL (1.6-2.6); Potassium 4.9 mmol/L (3.3-5.1); Sodium 136 mmol/L (135-145); Total Protein 7.7 g/dL (6.5-8.0)
[2023-11-01] MEDS: Piperacillin Sodium/Tazobactam 4.5 GM in 0.9 % Sodium Chloride 100 ML IV (19:20)
[2023-11-01 20:10] LABS: Influenza A PCR NEGATIVE (Negative); Influenza B PCR NEGATIVE (Negative); Resp Syncy Virus RNA Qual PCR NEGATIVE (Negative); SARS COV2 PCR INHOUSE NEGATIVE (Negative)
--- NOTE | 2023-11-01 20:13 | PC.NURSE ---
pt bending arm, delaying abx admin
[2023-11-01 20:21] LABS: Appearance Urine Cloudy; Color Urine Yellow; Glucose Urine UA 500 mg/dL (Negative); Leukocyte Esterase Urine Large (3+) (Negative); Nitrite Urine Positive (Negative); UMIC TRIGGER UACC YES; Urine Blood Moderate (2+) (Negative); Urine Ketones Negative (Negative); Urine Protein 30 (1+) mg/dL (Neg-Trace)
[2023-11-01 20:31] LABS: Bacteria Urine Trace (None Seen); Hyaline Casts Urine 0-2 /LPF (0-2); Squamous Epithelial Cell Urine 0-2 /HPF (0-2); UACC Culture Trigger YES; WBC Urine >50 /HPF (0-5)
[2023-11-01 20:44] VITALS: BP 154/76; PULSE 114; RESP 19; TEMP 38.6; O2SAT 98
[2023-11-01] MEDS: Acetaminophen 325 MG TABLET 975 MG PO (20:45)
[2023-11-01] MEDS: iohexoL 350 MG/ML 100 ML INFUS..BTL 85 ML IV (21:12)
[2023-11-01] MEDS: cefTRIAXone sodium 1 GM in 0.9 % Sodium Chloride 50 ML IV (21:50)
[2023-11-01 21:55] VITALS: BP 138/57; PULSE 110; RESP 18; TEMP 37.8; O2SAT 97
[2023-11-01 22:14] VITALS: BP 155/87; PULSE 109; RESP 18; TEMP 37.8; O2SAT 98
--- NOTE | 2023-11-01 22:27 | MHC.EDTECH ---
PATIENT WAS INCONTINENT OF URINE ,CARE GIVEN AND BEDDING CHANGE .PATIENT AT BEDSIDE .
[2023-11-01 23:36] VITALS: BP 135/70; PULSE 100; RESP 16; TEMP 37.2; O2SAT 98
[2023-11-02] MEDS: Insulin Glargine,Hum.rec.anlog 100 UNIT/ML 10 ML VIAL 15 UNIT SUBCUT ×2 (00:52→21:54)
[2023-11-02] MEDS: OLANZapine 5 MG TABLET PO (00:52)
[2023-11-02] MEDS: ALPRAZolam 0.5 MG TABLET 1 MG PO ×3 (00:52→21:54)
[2023-11-02] MEDS: Lactated Ringers 1,000 ML 80 ML IVCONT (00:53)
[2023-11-02] MEDS: Piperacillin Sodium/Tazobactam 3.375 GM in 0.9 % Sodium Chloride 50 ML IV ×4 (01:30→17:24)
[2023-11-02 04:00] VITALS: BP 114/55; PULSE 88; RESP 18; TEMP 36.6; O2SAT 98
--- NOTE | 2023-11-02 06:12 | P.HPHOSP_ITS ---
History of Present Illness Date of Service: 11/02/23 Attending physician on admission: Grace Kramer Chief Complaint: Fever Juma Oakley is a 68 years old man with past medical history significant for severe dementia, type 2 diabetes mellitus on insulin, CAD, GAY (noncompliant with CPAP), neurogenic bladder, prostate/bladder CA and nephrolithiasis was brought to the emergency department via ambulance after he started to fever. HPI was provided by patient's who was at bedside of the patient has significant dementia. The patient has been having chills but he denied any pain, headache, sore throat, cough, chest pain, shortness of breath, nausea, vomiting, diarrhea, pain with urination or blood in urine. The patient is a . He is a former smoker and denied alcohol abuse or illicit drug use. In the ED, he was initially found to have temperature of 101.5 degrees and low- grade tachycardia. There is no hypotension and oxygen saturation is normal on room air. Blood workup was remarkable for leukocytosis of 11.9. There is no lactic acidosis. CRP is 4.6. Hemoglobin is 12.3 and platelet 163. Venous blood gases are normal. There are no significant electrolyte imbalances. LFTs are normal. Renal function is around baseline. Urinalysis consistent with urinary tract infection. Viral testing for COVID-19, RSV influenza is negative. CXR showed no acute cardiopulmonary disease. Left foot x-ray showed no acute abnormalities. Abdominal pelvis CT scan showed marked bladder wall thickening with some pericholecystic inflammatory changes consistent with cystitis, mild prominence of the left renal collecting system compared with the right, choledocholithiasis with stones in the distal pancreatic duct near the junction of the common bile duct. ECG showed normal sinus bradycardia with a HR of 123 bpm and right bundle branch block. ED tx: Ceftriaxone 1 g IV, acetaminophen 975 mg p.o., NS 2 L bolus, Zosyn 4.5 g IV Review of Systems 2 Review of Systems: Yes Unobtainable due to mental status [facility] Medical History (Updated 11/01/23 @ 22:34 by Leon Pereira MD) Diabetes Anxiety Coronary artery disease NSTEMI (non-ST elevated myocardial infarction) Cardiomyopathy Sleep apnea Mini stroke Nephrolithiasis Neurogenic bladder Malignant neoplasm of overlapping sites of bladder Prostate cancer Family History Father CAD (coronary artery disease) Pacemaker Surgical History (Updated 07/13/23 @ 00:02 by Grabiel Guzman) S/P cardiac cath History of cardiac cath Social History Household Members: Spouse and None Housing: House Do you presently have visiting nurse or other home services: Yes Unable to assess alcohol history related to: Unknown Alcohol intake: never Patient Tobacco Use Status: Former Tobacco user Tobacco use type: Cigarette Smoked in Last 30 Days: No Second Hand Smoke Exposure: Yes Use of substances other than those prescribed or required for medical reasons: No Have you been hit, kicked, punched, or otherwise hurt by someone within the past year? If so, by whom?: No Do you feel safe in your current relationship?: Yes Is there a partner from a previous relationship who is making you feel unsafe now?: No Are you made to feel afraid or neglected: No Advance Directives: Yes Advance Directives on File: Yes Advance Directives Date on File: 04/12/21 Do you have a plan to hurt others: No Plan Recently lost weight without trying: No How much weight loss: Not applicable Eating poorly because of decreased appetite: No Nutrition screen score: 0 Nutrition Risks: No Nutritional Risk Poor oral hygiene: No service: Yes Current occupational status: disabled Meds Allergies Allergy/AdvReac Type Severity Reaction Status Date / Time quetiapine [From Seroquel] Allergy Mild LEG Verified 11/01/23 18:15 SWELLING haloperidol [From Haldol] Allergy Unknown Verified 11/01/23 18:15 onion [Onion] AdvReac Unknown NAUSEA & Verified 11/01/23 18:15 VOMITING PEPPERS AdvReac Mild NAUSEA & Uncoded 11/01/23 18:15 VOMITING Active Medications: Current Medications Acetaminophen (Acetaminophen 325 Mg Tablet) 975 mg PO Q6H PRN PRN Reason: Pain, Mild (Pain Scale 1-3), fever or headache Glucose (Glucose Gel 15 Gm Gel..Gram.) 15 gm PO Q15M PRN; Protocol PRN Reason: per Hypoglycemia Standing Ord. Heparin Sodium (Porcine) (Heparin Sodium,Porcine 5,000 Unit/Ml Vial) 5,000 unit SUBCUT Q8H HUGO Piperacillin Sod/Tazobactam (Sod 3.375 gm/ Sodium Chloride) 50 mls @ 100 mls/hr IV 0000,0600,1200,1800 [facility] Last Admin: 11/02/23 06:04 Dose: 100 mls/hr Lactated Ringer's (Lr) 1,000 mls @ 80 mls/hr IVCONT .[id number] [facility] Stop: 11/02/23 09:14 Last Admin: 11/02/23 00:53 Dose: 80 mls/hr Dextrose (D10) 250 mls @ 750 mls/hr IV Q15M PRN; Protocol PRN Reason: per Hypoglycemia Standing Ord. Insulin Glargine (Insulin Glargine,Hum.Rec.Anlog 100 Unit/Ml 10 Ml Vial) 15 unit SUBCUT BEDTIME [facility] Last Admin: 11/02/23 00:52 Dose: 15 unit Insulin Human Lispro (Insulin Lispro 100 Unit/Ml 3 Ml Vial) 0 unit SUBCUT QIDACHS [facility]; Protocol Melatonin (Melatonin 3 Mg Tablet) 6 mg PO BEDTIME PRN PRN Reason: Insomnia Sodium Chloride (0.9 % Sodium Chloride Flush 3 Ml Syringe) 3 ml IVFLUSH QSHIFT [facility] Last Admin: 11/02/23 00:57 Dose: Not Given Home Medications ?Medication ?Instructions ?Recorded ?Confirmed ?Last Taken ?Type aspirin 81 mg tablet,delayed 81 mg PO DAILY 04/04/21 08/30/23 03/21/22 History release insulin lispro 100 unit/mL 14 unit subcut TIDAC 04/04/21 08/30/23 03/21/22 History subcutaneous pen acetaminophen 325 mg tablet 650 mg PO QID PRN Pain 03/05/22 08/30/23 Unknown History insulin glargine 100 unit/mL (3 30 unit subcut BEDTIME 03/05/22 08/30/23 03/20/22 History mL) subcutaneous pen (Lantus Solostar U-100 Insulin) lidocaine 5 % topical patch 1 patch topical DAILY 03/05/22 08/30/23 03/21/22 History multivitamin 1 tab PO DAILY 03/21/22 08/30/23 03/21/22 History atorvastatin 80 mg tablet 40 mg PO BEDTIME 08/11/22 08/30/23 Unknown History cholecalciferol (vitamin D3) 25 50 mcg PO DAILY 08/11/22 08/30/23 Unknown History mcg (1,000 unit) tablet furosemide 20 mg tablet 20 mg PO DAILY PRN weight gain 08/11/22 08/30/23 Unknown History lamotrigine 100 mg tablet 100 mg PO DAILY 08/11/22 08/30/23 Unknown History lisinopril 10 mg tablet 10 mg PO DAILY 08/11/22 08/30/23 Unknown History mirtazapine 30 mg tablet 30 mg PO .COMPLEX 08/11/22 08/30/23 Unknown History olanzapine 15 mg tablet 30 mg PO BEDTIME 08/11/22 08/30/23 Unknown History omeprazole 20 mg capsule,delayed 20 mg PO DAILY@0630 08/11/22 08/30/23 Unknown History release alprazolam 1 mg tablet 1 mg PO TID Anxiety 07/02/23 08/30/23 Unknown History carvedilol 3.125 mg tablet 3.125 mg PO BIDWM 07/02/23 08/30/23 Unknown History magnesium oxide 500 mg PO DAILY 07/02/23 08/30/23 Unknown History melatonin 3 mg tablet 3 mg PO BEDTIME 07/02/23 08/30/23 Unknown History Physical Exam 2 Vital Signs and Narrative: Vital Signs: Last Vital Signs Temp 98.9 F 11/01/23 23:36 Pulse 100 11/01/23 23:36 Resp 16 11/01/23 23:36 BP 135/70 11/01/23 23:36 Pulse Ox 98 11/01/23 23:36 O2 Del Method Room Air 11/01/23 23:36 BMI result Body Mass Index 35.3 Constitutional - Awake and Alert, No apparent distress. Pleasantly confused. Pleasant and cooperative. Afebrile. HEENT - PERRL, EOMI. Normal sclerae. Dry oral mucosa. Heart - RRR. No murmur. Lungs - Normal lung expansion, Normal respiratory effort, No respiratory distress, CTA bilaterally Abdomen - NT / ND; +BS; No rebound or guarding - No CVA tenderness Extremities - Hands: Fingers missing (due to frostbites). Left foot: Mild erythema and tenderness noted to the 2nd toe Skin - Warm/Dry. No pallor. No jaundice. Neurological - Alert & oriented x1. No facial droop. Normal speech. Psychological - Appropriate affect Results Labs 11/01/23 18:36 06/26/24 18:36 Labs: Laboratory Results - last 24 hr 11/01/23 11/01/23 11/01/23 18:36 18:39 19:27 MCV 89.5 MCH 29.3 MCHC 32.7 RDW 14.3 Plt Count 163 MPV 9.6 Immature Gran % (Auto) 0.3 Neut % (Auto) 84.4 H Lymph % (Auto) 6.3 L [place] % (Auto) 5.4 Eos % (Auto) 3.5 Baso % (Auto) 0.1 Lymph # (Auto) 0.8 L [place] # (Auto) 0.6 Eos # (Auto) 0.4 Baso # (Auto) 0.0 Abs Immat Gran (auto) 0.04 H Absolute Neuts (auto) 10.0 H Absolute Nucleated RBC 0.000 Nucleated RBC % (auto) 0.0 VBG pH 7.39 VBG pCO2 40 VBG pO2 39 VBG HCO3 25 VBG O2 Saturation 65.0 VBG Base Excess 0.3 Anion Gap 13 Estim Creat Clear Calc 63.2 Estimated GFR 50 Random Glucose 121 H Lactic Acid 1.3 Calcium 9.8 D Magnesium 1.5 L Total Bilirubin 0.4 Direct Bilirubin 0.2 AST 27 ALT 33 Alkaline Phosphatase 119 H C-Reactive Protein 4.60 H Total Protein 7.7 Albumin 4.0 Urine Color Urine Appearance Urine pH Ur Specific [place] Urine Protein Urine Glucose (UA) Urine Ketones Urine Blood Urine Nitrite Ur Leukocyte Esterase Urine RBC Urine WBC Ur Squamous Epith Cells Urine Bacteria Hyaline Casts Influenza Type A (PCR) NEGATIVE Influenza Type B (PCR) NEGATIVE RSV RNA Qual (PCR) NEGATIVE SARS-CoV-2 RNA (RT-PCR) NEGATIVE 11/01/23 20:14 MCV MCH MCHC RDW Plt Count MPV Immature Gran % (Auto) Neut % (Auto) Lymph % (Auto) [place] % (Auto) Eos % (Auto) Baso % (Auto) Lymph # (Auto) [place] # (Auto) Eos # (Auto) Baso # (Auto) Abs Immat Gran (auto) Absolute Neuts (auto) Absolute Nucleated RBC Nucleated RBC % (auto) VBG pH VBG pCO2 VBG pO2 VBG HCO3 VBG O2 Saturation VBG Base Excess Anion Gap Estim Creat Clear Calc Estimated GFR Random Glucose Lactic Acid Calcium Magnesium Total Bilirubin Direct Bilirubin AST ALT Alkaline Phosphatase C-Reactive Protein Total Protein Albumin Urine Color Yellow Urine Appearance Cloudy Urine pH 6.0 Ur Specific [place] 1.010 Urine Protein 30 (1+) H Urine Glucose (UA) 500 H Urine Ketones Negative Urine Blood Moderate (2+) H Urine Nitrite Positive H Ur Leukocyte Esterase Large (3+) H Urine RBC 11-20 H Urine WBC >50 H Ur Squamous Epith Cells 0-2 Urine Bacteria Trace Hyaline Casts 0-2 Influenza Type A (PCR) Influenza Type B (PCR) RSV RNA Qual (PCR) SARS-CoV-2 RNA (RT-PCR) Imaging Radiologist's Impressions: Impressions Chest X-Ray 11/01/23 19:13 IMPRESSION: 1. No acute intrathoracic disease. 2. No acute finding in the left foot. Degenerative changes as described above. Foot X-Ray 11/01/23 19:13 IMPRESSION: 1. No acute intrathoracic disease. 2. No acute finding in the left foot. Degenerative changes as described above. Abdomen/Pelvis CT 11/01/23 21:14 IMPRESSION: 1. Marked bladder wall thickening with some pericholecystic inflammatory change. Findings are consistent with cystitis. 2. Mild prominence of the left renal collecting system compared with the right. 3. Choledocholithiasis with stone in the distal pancreatic duct near its junction with the common bile duct. 4. Other incidental findings as described above. Fleischner guidelines were followed. Assessment and Plan (1) Urinary tract infection with fever: Status: Acute (2) Hypomagnesemia: Status: Acute Plan Juma Oakley is a 68 y/o man with PMHx significant neurogenic bladder, prostate/bladder CA and nephrolithiasis admitted with: * Urinary tract infection, SIRS criteria, no severe sepsis. Admit to hospitalist service. Continue empiric IV antibiotic therapy with Zosyn. IV fluids. Blood and urine culture obtained we will follow results. * Choledocholithiasis + stone in the distal pancreatic duct near its junction with the CBD. No acute GI symptoms. LFTs are normal. GI consult. * Type 2 diabetes mellitus. Continue Lantus and insulin sliding scale. BG checks before meals at bedtime. Diabetic diet. * Hypomagnesemia. Magnesium sulfate 2 g IV x1. Continue to monitor Mg level. * Hyperlipidemia. Continue statin. * CAD. Continue aspirin and statin. * HFrEF + HFpEF. Continue home medication. * CKD stage 3A. Continue to monitor. Avoid nephrotoxic agents. * Essential hypertension. Continue carvedilol. * Mood disorder/anxiety. Continue Xanax and olanzapine. * GAY. Noncompliant with CPAP. * Chronic anemia. Continue to monitor. Med rec per pharmacy still pending. Patient's will bring patient's home medication list in the morning (dispense hx is not available in our system as pt is ). DVT prophylaxis: Heparin subcut Code status: Full Patient will need hospitalization for at least 2 midnights for UTI treatment with IV antibiotic as he has multiple medical comorbidities including cancer and type 2 diabetes. Quality Stroke Does the patient have a stroke diagnosis?: No VTE Prior VTE?: No VTE Risk Level:: Medical - moderate - high VTE Device Contraindication: Treatment Not Indicated VTE Drug Contraindication: N/A - Med Ordered
[2023-11-02 07:34] VITALS: BP 159/71; PULSE 80; RESP 20; TEMP 36; O2SAT 95
[2023-11-02 08:56] LABS: Glucose, Whole Blood 93 mg/dL (60-115)
[2023-11-02 08:56] LABS: Glucose, Whole Blood 92 mg/dL (60-115)
--- NOTE | 2023-11-02 08:57 | PM.GICN ---
History of Present Illness Data of Consult Service Date: 11/02/23 Primary Care Provider: Unknown Physician HPI Reason for consult: ?cbd stone 68 years old man with hx of severe dementia, type 2 diabetes mellitus on insulin, CAD, GAY (noncompliant with CPAP), neurogenic bladder, prostate/bladder CA and nephrolithiasis who I am seeing for assessment for possible cbd stone Patient was initially brought to hospital for fever and chills. PEr he had no c/o abdominal pain, no nausea or vomiting had been his normal self prior to this. says sometimes he struggles to pass urine out Patient unable to give hx due to dementia LABS: WCC: 11.9. CRP is 4.6. Hemoglobin is 12.3 and platelet 163 LFTs are normal blood culture with GNR UA with nitrites and blood, pos leuk esterase IMAGING: CT scan A/P: marked bladder wall thickening with some pericholecystic inflammatory changes consistent with cystitis, mild prominence of the left renal collecting system compared with the right, choledocholithiasis with stones in the distal pancreatic duct near the junction of the common bile duct. Review of Systems Review of Systems: Yes Unobtainable due to mental status [facility] Past Medical History Medical History (Updated 11/02/23 @ 10:34 by All Hutchinson MD) Diabetes Anxiety Coronary artery disease NSTEMI (non-ST elevated myocardial infarction) Cardiomyopathy Sleep apnea Mini stroke Nephrolithiasis Neurogenic bladder Malignant neoplasm of overlapping sites of bladder Prostate cancer Family History Family History Father CAD (coronary artery disease) Pacemaker Surgical History Surgical History (Updated 07/13/23 @ 00:02 by Grabiel Guzman) S/P cardiac cath History of cardiac cath Social History Social History Household Members: Spouse and None Housing: House Do you presently have visiting nurse or other home services: Yes Unable to assess alcohol history related to: Unknown Alcohol intake: never Patient Tobacco Use Status: Former Tobacco user Tobacco use type: Cigarette Smoked in Last 30 Days: No Second Hand Smoke Exposure: Yes Use of substances other than those prescribed or required for medical reasons: No Have you been hit, kicked, punched, or otherwise hurt by someone within the past year? If so, by whom?: No Do you feel safe in your current relationship?: Yes Is there a partner from a previous relationship who is making you feel unsafe now?: No Are you made to feel afraid or neglected: No Advance Directives: Yes Advance Directives on File: Yes Advance Directives Date on File: 04/12/21 Do you have a plan to hurt others: No Plan Recently lost weight without trying: No How much weight loss: Not applicable Eating poorly because of decreased appetite: No Nutrition screen score: 0 Nutrition Risks: No Nutritional Risk Poor oral hygiene: No service: Yes Current occupational status: disabled Meds Allergies Allergy/AdvReac Type Severity Reaction Status Date / Time quetiapine [From Seroquel] Allergy Mild LEG Verified 11/01/23 18:15 SWELLING haloperidol [From Haldol] Allergy Unknown Verified 11/01/23 18:15 onion [Onion] AdvReac Unknown NAUSEA & Verified 11/01/23 18:15 VOMITING PEPPERS AdvReac Mild NAUSEA & Uncoded 11/01/23 18:15 VOMITING Active Medications: Current Medications Acetaminophen (Acetaminophen 325 Mg Tablet) 975 mg PO Q6H PRN PRN Reason: Pain, Mild (Pain Scale 1-3), fever or headache Glucose (Glucose Gel 15 Gm Gel..Gram.) 15 gm PO Q15M PRN; Protocol PRN Reason: per Hypoglycemia Standing Ord. Heparin Sodium (Porcine) (Heparin Sodium,Porcine 5,000 Unit/Ml Vial) 5,000 unit SUBCUT Q8H HUGO Piperacillin Sod/Tazobactam (Sod 3.375 gm/ Sodium Chloride) 50 mls @ 100 mls/hr IV 0000,0600,1200,1800 [facility] Last Admin: 11/02/23 06:04 Dose: 100 mls/hr Dextrose (D10) 250 mls @ 750 mls/hr IV Q15M PRN; Protocol PRN Reason: per Hypoglycemia Standing Ord. Insulin Glargine (Insulin Glargine,Hum.Rec.Anlog 100 Unit/Ml 10 Ml Vial) 15 unit SUBCUT BEDTIME [facility] Last Admin: 11/02/23 00:52 Dose: 15 unit Insulin Human Lispro (Insulin Lispro 100 Unit/Ml 3 Ml Vial) 0 unit SUBCUT QIDACHS [facility]; Protocol Melatonin (Melatonin 3 Mg Tablet) 6 mg PO BEDTIME PRN PRN Reason: Insomnia Sodium Chloride (0.9 % Sodium Chloride Flush 3 Ml Syringe) 3 ml IVFLUSH [facility] Last Admin: 11/02/23 00:57 Dose: Not Given Home Medications ?Medication ?Instructions ?Recorded ?Confirmed ?Last Taken ?Type aspirin 81 mg tablet,delayed 81 mg PO DAILY 04/04/21 11/02/23 11/01/23 History release insulin glargine 100 unit/mL (3 26 unit subcut DAILY 03/05/22 11/02/23 11/01/23 History mL) subcutaneous pen (Lantus Solostar U-100 Insulin) lidocaine 5 % topical patch 1 patch topical DAILY PRN Pain 03/05/22 11/02/23 11/01/23 History atorvastatin 80 mg tablet 40 mg PO BEDTIME 08/11/22 11/02/23 11/01/23 History furosemide 20 mg tablet 20 mg PO DAILY PRN weight gain 08/11/22 11/02/23 Unknown History lamotrigine 100 mg tablet 100 mg PO DAILY 08/11/22 11/02/23 11/01/23 History lisinopril 10 mg tablet 10 mg PO DAILY 08/11/22 11/02/23 11/01/23 History mirtazapine 30 mg tablet 30 mg PO DAILY@1800 08/11/22 11/02/23 11/01/23 History olanzapine 15 mg tablet 30 mg PO BEDTIME 08/11/22 11/02/23 11/01/23 History omeprazole 20 mg capsule,delayed 20 mg PO DAILY@0630 08/11/22 11/02/23 11/01/23 History release alprazolam 1 mg tablet 1 mg PO TID Anxiety 07/02/23 11/02/23 11/01/23 History carvedilol 3.125 mg tablet 3.125 mg PO BIDWM 07/02/23 11/02/23 11/01/23 History melatonin 3 mg tablet 3 mg PO BEDTIME 07/02/23 11/02/23 11/01/23 History acetaminophen 500 mg tablet 1,000 mg PO BID PRN Pain 11/02/23 11/02/23 Unknown History cholecalciferol (vitamin D3) 50 100 mcg PO DAILY 11/02/23 11/02/23 11/01/23 History mcg (2,000 unit) tablet (Vitamin D3) empagliflozin 10 mg tablet 10 mg PO DAILY 11/02/23 11/02/23 11/01/23 History (Jardiance) insulin aspart U-100 100 unit/mL 14 unit subcut TIDWM 11/02/23 11/02/23 11/01/23 History (3 mL) subcutaneous pen (Novolog FlexPen U-100 Insulin aspart) magnesium oxide 400 mg PO BID 11/02/23 11/02/23 11/01/23 History mirtazapine 15 mg tablet 15 mg PO BEDTIME 11/02/23 11/02/23 11/01/23 History sodium chloride 0.9 % irrigation 250 ml irrigation DAILY PRN Wound 11/02/23 11/02/23 11/01/23 History solution Care Physical Exam Vital Signs: Vital Signs: Last Vital Signs Temp 96.8 F 11/02/23 07:34 Pulse 80 11/02/23 07:34 Resp 20 11/02/23 07:34 BP 159/71 H 11/02/23 07:34 Pulse Ox 95 11/02/23 07:34 O2 Del Method Room Air 11/02/23 07:34 BMI result Body Mass Index 35.3 EXAM: GENERAL: The patient is well developed and nontoxic. VITAL SIGNS:see workflow HEENT: Nonicteric sclerae, PERRLA, EOMI. Oropharynx clear. Moist mucous membranes. Conjunctivae appear well perfused. No thyroid mass. CHEST: Chest wall is nontender. HEART: Regular rate and rhythm without murmurs. LUNGS: Clear to auscultation bilaterally. ABDOMEN: Soft, positive bowel sounds, nontender, no organomegaly.no flank tenderness SKIN: No rash, no excessive bruising, petechiae, or purpura. NEUROLOGIC: Cranial nerves II-XII intact without motor/sensory deficit. Psych: normal affect amputated fingers both hands Results Labs 11/01/23 18:36 11/01/23 18:36 Labs: Short CBC 11/01/23 Range/Units 18:36 WBC 11.9 H (4.8-10.8) X10*3/uL Hgb 12.3 L (14.0-18.0) g/dl Hct 37.6 L (42.0-52.0) % Plt Count 163 (160-400) X10*3/uL BMP 11/01/23 18:36 Sodium 136 Potassium 4.9 D Chloride 105 Carbon Dioxide 23 BUN 22 H Creatinine 1.40 Calcium 9.8 D Liver Function 11/01/23 Range/Units 18:36 Total Bilirubin 0.4 (0.0-1.0) mg/dL Direct Bilirubin 0.2 (0.0-0.5) mg/dL AST 27 (5-37) U/L ALT 33 (0-40) U/L Alkaline Phosphatase 119 H (39-117) U/L Albumin 4.0 (3.5-5.0) g/dL Urine 11/01/23 Range/Units 20:14 Urine Color Yellow Urine Appearance Cloudy Urine pH 6.0 (5.0-9.0) Ur Specific [place] 1.010 (1.005-1.025) Urine Protein 30 (1+) H (Neg-Trace) mg/dL Urine Glucose (UA) 500 H (Negative) mg/dL Imaging CT scan - abdomen: Attestation: I personally reviewed and interpreted this imaging study as follows: (densely calcified pancreas, thickened bladder ) Assessment and Plan (1) Gram-negative bacteremia: Status: Acute Plan 1/ GNR bacteremia, suspect this is urine tract related and not from choledocholithiasis. he has normal LFT and no RUq pain or tenderness but his Ua is pos for nitrites and blood. The suspected stone may be due to panc calcifications, said he was a heavy drinker in past and he has been told he has chronic pancreatitis PLAN: /1 --US GB and CBD, if stone confirmed in CBD then can pursue ERCP, otherwise hold 2/ if Us non diagnostic then MRCP 3/ cont with ABx and fluid resus as doing. Procedures Date of Service Date of Service: 11/02/23
[2023-11-02] MEDS: Magnesium Sulfate/H2O 2 GM/50 ML PIGGYBACK IV (09:14)
[2023-11-02] MEDS: Heparin Sodium,Porcine 5,000 UNIT/ML VIAL 5000 UNIT SUBCUT ×2 (09:19→17:22)
[2023-11-02] MEDS: 0.9 % Sodium Chloride Flush 3 ML SYRINGE IVFLUSH ×3 (09:19→21:55)
--- NOTE | 2023-11-02 10:02 | PHA.MEDREC ---
Pharmacy Consult ? Medication Reconciliation Pharmacy has completed the medication reconciliation. Spoke to patient Sarah. She was very knowledgeable about patient meds. She had a list from the [facility], and was able to confirm all meds. Sarah states Patient s Novolog Flex pen is 14 units tid with meals and Lantus SoloStar is 26 units at bedtime. Patient List has Dextrose oral gel 24gm/31gm 1 tube one time prn low blood sugar. left it off med list because it is non formulary.
[2023-11-02 11:04] LABS: Glucose, Whole Blood 129 mg/dL (60-115)
--- NOTE | 2023-11-02 11:59 | HO.PM.IMPN ---
Subjective Subjective Date of Service: 11/02/23 Interval History: Seen and examined this morning Follow-up for UTI, bacteremia, choledocholithiasis No fever, chills at this time. No abdominal pain, nausea, vomiting History was obtained from the patient (who has dementia) and his at the bedside Review of Systems Review of Systems: Yes all other systems are reviewed and are negative Constitutional Constitutional: Denies chills and Denies fever(s) Cardiovascular Cardiovascular: Denies chest pain, Denies palpitations and Denies dyspnea Respiratory Respiratory: Denies cough and Denies dyspnea Gastrointestinal Gastrointestinal: Denies abdominal pain Endocrine Endocrine: Denies palpitations Physical Exam Vital Signs: Vital Signs: Last Vital Signs Temp 96.8 F 11/02/23 07:34 Pulse 80 11/02/23 07:34 Resp 20 11/02/23 07:34 BP 159/71 H 11/02/23 07:34 Pulse Ox 95 11/02/23 07:34 O2 Del Method Room Air 11/02/23 07:34 BMI result Body Mass Index 35.3 Const: General: cooperative, no acute distress, alert and awake Nutritional Appearance: overweight Orientation/consciousness: oriented to person Resp: Effort & Inspection: normal respiratory effort, able to speak in complete sentences, no respiratory distress and no use of accessory muscles Cardio: Rate: regular rate GI: Inspection: No distended Palpation (GI): Soft to palpation and nontender Neuro: General: oriented to person, moves all extremities and CN's II-XI intact bilaterally Extrem: Other: trace edema Objective Data Active Medications Acetaminophen (Acetaminophen 325 Mg Tablet) 975 mg PO Q6H PRN PRN Reason: Pain, Mild (Pain Scale 1-3), fever or headache Alprazolam (Alprazolam 0.5 Mg Tablet) 1 mg PO TID [facility] Aspirin (Aspirin Enteric Coated 81 Mg Tablet.) 81 mg PO DAILY [facility] Atorvastatin Calcium (Atorvastatin Calcium 40 Mg Tablet) 40 mg PO BEDTIME [facility] Carvedilol (Carvedilol 3.125 Mg Tablet) 3.125 mg PO BIDWM [facility]; Protocol Glucose (Glucose Gel 15 Gm Gel..Gram.) 15 gm PO Q15M PRN; Protocol PRN Reason: per Hypoglycemia Standing Ord. Heparin Sodium (Porcine) (Heparin Sodium,Porcine 5,000 Unit/Ml Vial) 5,000 unit SUBCUT Q8H [facility] Last Admin: 11/02/23 09:19 Dose: 5,000 unit Documented By: KERMIT Piperacillin Sod/Tazobactam (Sod 3.375 gm/ Sodium Chloride) 50 mls @ 100 mls/hr IV 0000,0600,1200,1800 [facility] Last Infusion: 11/02/23 09:06 Dose: Infused Documented By: KERMIT Dextrose (D10) 250 mls @ 750 mls/hr IV Q15M PRN; Protocol PRN Reason: per Hypoglycemia Standing Ord. Insulin Glargine (Insulin Glargine,Hum.Rec.Anlog 100 Unit/Ml 10 Ml Vial) 15 unit SUBCUT BEDTIME [facility] Last Admin: 11/02/23 00:52 Dose: 15 unit Documented By: YOVANI Insulin Human Lispro (Insulin Lispro 100 Unit/Ml 3 Ml Vial) 0 unit SUBCUT QIDACHS [facility]; Protocol Last Admin: 11/02/23 11:09 Dose: Not Given Documented By: KERMIT Non-Admin Reason: No Insulin Coverage Lamotrigine (Lamotrigine 100 Mg Tablet) 100 mg PO DAILY [facility] Lidocaine (Lidocaine 4 % Patch Adh..Patch) 1 patch TRANSDERMA DAILY PRN PRN Reason: Pain Magnesium Oxide (Magnesium Oxide 400 Mg Tablet) 400 mg PO BID HUGO Melatonin (Melatonin 3 Mg Tablet) 6 mg PO BEDTIME PRN PRN Reason: Insomnia Melatonin (Melatonin 3 Mg Tablet) 3 mg PO BEDTIME [facility]GO Mirtazapine (Mirtazapine 15 Mg Tablet) 15 mg PO BEDTIME HUGO Mirtazapine (Mirtazapine 30 Mg Tablet) 30 mg PO DAILY@1800 [facility] Olanzapine (Olanzapine 10 Mg Tablet) 30 mg PO BEDTIME HUGO Omeprazole (Omeprazole 20 Mg Capsule.Dr) 20 mg PO DAILY@0630 [facility] Sodium Chloride (0.9 % Sodium Chloride Flush 3 Ml Syringe) 3 ml IVFLUSH QSHIFT [facility] Last Admin: 11/02/23 09:19 Dose: 3 ml Documented By: KERMIT Vitamin D (Cholecalciferol (Vitamin D3) 25 Mcg Tablet) 100 mcg PO DAILY [facility] Labs 11/01/23 18:36 11/01/23 18:36 Labs: Laboratory Results - last 24 hr 11/01/23 11/01/23 11/01/23 18:36 18:39 19:27 MCV 89.5 MCH 29.3 MCHC 32.7 RDW 14.3 Plt Count 163 MPV 9.6 Immature Gran % (Auto) 0.3 Neut % (Auto) 84.4 H Lymph % (Auto) 6.3 L [place] % (Auto) 5.4 Eos % (Auto) 3.5 Baso % (Auto) 0.1 Lymph # (Auto) 0.8 L [place] # (Auto) 0.6 Eos # (Auto) 0.4 Baso # (Auto) 0.0 Abs Immat Gran (auto) 0.04 H Absolute Neuts (auto) 10.0 H Absolute Nucleated RBC 0.000 Nucleated RBC % (auto) 0.0 VBG pH 7.39 VBG pCO2 40 VBG pO2 39 VBG HCO3 25 VBG O2 Saturation 65.0 VBG Base Excess 0.3 Anion Gap 13 Estim Creat Clear Calc 63.2 Estimated GFR 50 POC Glucose Random Glucose 121 H Lactic Acid 1.3 Calcium 9.8 D Magnesium 1.5 L Total Bilirubin 0.4 Direct Bilirubin 0.2 AST 27 ALT 33 Alkaline Phosphatase 119 H C-Reactive Protein 4.60 H Total Protein 7.7 Albumin 4.0 Urine Color Urine Appearance Urine pH Ur Specific [place] Urine Protein Urine Glucose (UA) Urine Ketones Urine Blood Urine Nitrite Ur Leukocyte Esterase Urine RBC Urine WBC Ur Squamous Epith Cells Urine Bacteria Hyaline Casts Influenza Type A (PCR) NEGATIVE Influenza Type B (PCR) NEGATIVE RSV RNA Qual (PCR) NEGATIVE SARS-CoV-2 RNA (RT-PCR) NEGATIVE 11/01/23 11/02/23 11/02/23 20:14 06:37 06:58 MCV MCH MCHC RDW Plt Count MPV Immature Gran % (Auto) Neut % (Auto) Lymph % (Auto) [place] % (Auto) Eos % (Auto) Baso % (Auto) Lymph # (Auto) [place] # (Auto) Eos # (Auto) Baso # (Auto) Abs Immat Gran (auto) Absolute Neuts (auto) Absolute Nucleated RBC Nucleated RBC % (auto) VBG pH VBG pCO2 VBG pO2 VBG HCO3 VBG O2 Saturation VBG Base Excess Anion Gap Estim Creat Clear Calc Estimated GFR POC Glucose 92 93 Random Glucose Lactic Acid Calcium Magnesium Total Bilirubin Direct Bilirubin AST ALT Alkaline Phosphatase C-Reactive Protein Total Protein Albumin Urine Color Yellow Urine Appearance Cloudy Urine pH 6.0 Ur Specific [place] 1.010 Urine Protein 30 (1+) H Urine Glucose (UA) 500 H Urine Ketones Negative Urine Blood Moderate (2+) H Urine Nitrite Positive H Ur Leukocyte Esterase Large (3+) H Urine RBC 11-20 H Urine WBC >50 H Ur Squamous Epith Cells 0-2 Urine Bacteria Trace Hyaline Casts 0-2 Influenza Type A (PCR) Influenza Type B (PCR) RSV RNA Qual (PCR) SARS-CoV-2 RNA (RT-PCR) 11/02/23 10:56 MCV MCH MCHC RDW Plt Count MPV Immature Gran % (Auto) Neut % (Auto) Lymph % (Auto) [place] % (Auto) Eos % (Auto) Baso % (Auto) Lymph # (Auto) [place] # (Auto) Eos # (Auto) Baso # (Auto) Abs Immat Gran (auto) Absolute Neuts (auto) Absolute Nucleated RBC Nucleated RBC % (auto) VBG pH VBG pCO2 VBG pO2 VBG HCO3 VBG O2 Saturation VBG Base Excess Anion Gap Estim Creat Clear Calc Estimated GFR POC Glucose 129 H Random Glucose Lactic Acid Calcium Magnesium Total Bilirubin Direct Bilirubin AST ALT Alkaline Phosphatase C-Reactive Protein Total Protein Albumin Urine Color Urine Appearance Urine pH Ur Specific [place] Urine Protein Urine Glucose (UA) Urine Ketones Urine Blood Urine Nitrite Ur Leukocyte Esterase Urine RBC Urine WBC Ur Squamous Epith Cells Urine Bacteria Hyaline Casts Influenza Type A (PCR) Influenza Type B (PCR) RSV RNA Qual (PCR) SARS-CoV-2 RNA (RT-PCR) Microbiology Microbiology Results: Microbiology 11/01/23 20:12 Urine Culture - Preliminary Urine clean catch - Urine munoz top Gram negative geovanna 11/01/23 18:57 Blood Culture - Preliminary Blood - Venous Prelim: GNR Gram Stain only Assessment and Plan (1) Gram-negative bacteremia: Status: Acute (2) Urinary tract infection with fever: Status: Acute Plan Juma Oakley is a 68 y/o man with PMHx significant neurogenic bladder, prostate/bladder CA and nephrolithiasis admitted with: Sepsis due to UTI and GNR bacteremia Met sepsis criteria with tachycardia, fever. Lactic acid normal, blood pressure stable. No evidence of severe features Continue IV Zosyn Follow urine culture, blood cultures Gram-negative geovanna bacteremia Likely due to urinary source Continue Zosyn Follow results of sensitivities Choledocholithiasis + stone in the distal pancreatic duct near its junction with the CBD. No acute GI symptoms. LFTs are normal. GI consult - plan for abdominal ultrasound Type 2 diabetes mellitus. Continue Lantus and insulin sliding scale. BG checks before meals at bedtime. Diabetic diet. Hypomagnesemia. Magnesium sulfate 2 g IV x1. Continue to monitor Mg level. Hyperlipidemia. Continue statin. CAD. Continue aspirin and statin. HFrEF + HFpEF. Continue home medication. CKD stage 3A. Continue to monitor. Avoid nephrotoxic agents. Essential hypertension. Continue carvedilol. Mood disorder/anxiety/dementia Continue Xanax and olanzapine. GAY. Noncompliant with CPAP. Chronic anemia. Continue to monitor. DVT prophylaxis: Heparin subcut Code status: Full Requires ongoing inpatient stay for UTI treatment with IV antibiotic as he has multiple medical comorbidities including cancer and type 2 diabetes and specialist evaluation for choledocholithiasis Quality Stroke Does the patient have a stroke diagnosis?: No VTE Prior VTE?: No VTE Risk Level:: Medical - moderate - high VTE Device Contraindication: Treatment Not Indicated VTE Drug Contraindication: N/A - Med Ordered
[2023-11-02] MEDS: lamoTRIgine 100 MG TABLET PO (12:39)
--- NOTE | 2023-11-02 12:53 | MHC.CM.PN ---
IMM 11/01. Pt with dx dementia. Pt lives at home with his , he is dependent on all care and uses a wheelchair. Pt receives [employer] services and family support daily. Pts will transport him home at discharge. HCP on file and verified. PCP: Jessica NI
[2023-11-02 15:29] VITALS: BP 141/79; PULSE 96; RESP 16; TEMP 37; O2SAT 96
[2023-11-02 16:13] LABS: Glucose, Whole Blood 143 mg/dL (60-115)
[2023-11-02 17:22] VITALS: BP 126/68; PULSE 73
[2023-11-02] MEDS: carvediloL 3.125 MG TABLET PO (17:22)
[2023-11-02] MEDS: Mirtazapine 30 MG TABLET PO (17:22)
[2023-11-02 19:44] VITALS: BP 129/60; PULSE 72; RESP 18; TEMP 36.9; O2SAT 93
[2023-11-02 20:48] LABS: Glucose, Whole Blood 244 mg/dL (60-115)
[2023-11-02] MEDS: Acetaminophen 325 MG TABLET 975 MG PO (21:53)
[2023-11-02] MEDS: OLANZapine 10 MG TABLET 30 MG PO (21:53)
[2023-11-02] MEDS: Melatonin 3 MG TABLET PO (21:53)
[2023-11-02] MEDS: Magnesium Oxide 400 MG TABLET PO (21:53)
[2023-11-02] MEDS: Atorvastatin Calcium 40 MG TABLET PO (21:54)
[2023-11-02] MEDS: Insulin Lispro 100 UNIT/ML 3 ML VIAL SUBCUT (21:55)
[2023-11-02] MEDS: Mirtazapine 15 MG TABLET PO (21:56)
[2023-11-03] MEDS: Piperacillin Sodium/Tazobactam 3.375 GM in 0.9 % Sodium Chloride 50 ML IV ×2 (00:34→05:11)
[2023-11-03] MEDS: Heparin Sodium,Porcine 5,000 UNIT/ML VIAL 5000 UNIT SUBCUT ×3 (00:34→16:54)
[2023-11-03 04:00] VITALS: BP 160/63; PULSE 66; RESP 18; TEMP 36.2; O2SAT 99
[2023-11-03] MEDS: Omeprazole 20 MG CAPSULE.DR PO (05:11)
[2023-11-03 08:00] VITALS: BP 118/52; PULSE 71; RESP 14; TEMP 36
[2023-11-03 08:30] LABS: Glucose, Whole Blood 121 mg/dL (60-115)
[2023-11-03 08:48] VITALS: BP 118/52; PULSE 66
[2023-11-03] MEDS: 0.9 % Sodium Chloride Flush 3 ML SYRINGE IVFLUSH ×3 (08:48→20:13)
[2023-11-03] MEDS: carvediloL 3.125 MG TABLET PO ×2 (08:48→16:54)
[2023-11-03] MEDS: Aspirin Enteric Coated 81 MG TABLET.DR PO (08:48)
[2023-11-03] MEDS: lamoTRIgine 100 MG TABLET PO (08:48)
[2023-11-03] MEDS: ALPRAZolam 0.5 MG TABLET 1 MG PO ×2 (08:48→20:14)
[2023-11-03] MEDS: Magnesium Oxide 400 MG TABLET PO ×2 (08:48→20:14)
[2023-11-03] MEDS: Cholecalciferol (Vitamin D3) 25 MCG TABLET 100 MCG PO (08:48)
[2023-11-03] MEDS: cefTRIAXone sodium 2 GM in 0.9 % Sodium Chloride 50 ML IV (08:49)
[2023-11-03 10:35] LABS: MANUAL DIFF FLAG NO
[2023-11-03 10:42] LABS: Basophils Percent Auto 0.3 % (0-2); Eosinophils Absolute Auto 0.5 X10*3/uL (0.0-0.4); Eosinophils Percent Auto 7.1 % (0-4); Hematocrit 32.1 % (42.0-52.0); Hemoglobin 10.3 g/dl (14.0-18.0); Imm Gran Abs Auto 0.02 X10*3/uL (0.00-0.03); Imm Gran Pct Auto 0.3 % (0.0-0.4); Lymphocytes Absolute Auto 1.2 X10*3/uL (1.2-4.9); Lymphocytes Percent Auto 18.8 % (20-40); Mean Corpuscular HGB Conc 32.1 g/dl (31.0-36.0); Mean Corpuscular Hemoglobin 29.7 pg (27.0-33.0); Mean Corpuscular Volume 92.5 fL (80.0-98.0); Mean Platelet Volume 9.8 fL (9.4-12.4); Monocytes Absolute Auto 0.6 X10*3/uL (0.1-1.2); Monocytes Percent Auto 9.4 % (2-11); Neutrophils Absolute Auto 4.2 x10*3/uL (2.0-8.3); Neutrophils Percent Auto 64.1 % (45-73); Platelet Count 123 X10*3/uL (160-400); Red Blood Count 3.47 X10*6/uL (4.60-5.80); Red Cell Distribution Width 14.3 % (11.0-16.0); White Blood Count 6.5 X10*3/uL (4.8-10.8)
[2023-11-03 11:01] LABS: Alanine Aminotransferase 37 U/L (0-40); Albumin Level 3.2 g/dL (3.5-5.0); Alkaline Phosphatase 110 U/L (39-117); Anion Gap 13 (12-20); Aspartate Amino Transferase 23 U/L (5-37); Bilirubin Direct 0.2 mg/dL (0.0-0.5); Bilirubin Total 0.4 mg/dL (0.0-1.0); Blood Urea Nitrogen 24 mg/dL (9-16); Calcium 9.2 mg/dL (8.4-10.2); Carbon Dioxide 23 mmol/L (22-29); Chloride 109 mmol/L (96-108); Creatinine Clr Calc Pharmacy 52.6; Estimated Glomerular Filt Rate 41; Glucose Random 201 mg/dL (60-115); Lipase < 4 U/L (8-78); Magnesium 1.9 mg/dL (1.6-2.6); Potassium 4.7 mmol/L (3.3-5.1); Sodium 140 mmol/L (135-145); Total Protein 6.2 g/dL (6.5-8.0)
[2023-11-03 11:34] LABS: Glucose, Whole Blood 184 mg/dL (60-115)
[2023-11-03] MEDS: Insulin Lispro 100 UNIT/ML 3 ML VIAL SUBCUT ×2 (11:43→16:54)
--- NOTE | 2023-11-03 13:17 | MHC.CM.PN ---
Pt requires ongoing acute care for treatment of UTI with IV ABX and multiple comorbidities. DCP: home with services.
--- NOTE | 2023-11-03 13:27 | P.PNIM_ITS ---
Subjective Subjective Date of Service: 11/03/23 Interval History: Seen and examined this morning Follow-up for urinary tract infection No overnight events Blood cultures growing Gram-negative rods Review of Systems Review of Systems: Yes all other systems are reviewed and are negative Constitutional Constitutional: Denies fever(s) ENT Ears, Nose, Mouth, and Throat: Denies dizziness Cardiovascular Cardiovascular: Denies chest pain Gastrointestinal Gastrointestinal: Denies abdominal pain Neurologic Neurologic: Denies dizziness Physical Exam 2 Vital Signs: Vital Signs: Last Vital Signs Temp 96.8 F 11/03/23 08:00 Pulse 66 11/03/23 08:48 Resp 14 11/03/23 08:00 BP 118/52 L 11/03/23 08:48 Pulse Ox 99 11/03/23 04:00 O2 Del Method Room Air 11/03/23 04:00 BMI result Body Mass Index 35.3 Const: General: cooperative, no acute distress, alert and awake Nutritional Appearance: overweight Orientation/consciousness: oriented to person Resp: Effort & Inspection: normal respiratory effort, able to speak in complete sentences, no respiratory distress and no use of accessory muscles Cardio: Rate: regular rate GI: Inspection: No distended Palpation (GI): Soft to palpation and nontender Neuro: General: oriented to person, moves all extremities and CN's II-XI intact bilaterally Extrem: Other: trace edema Objective Data Active Medications Acetaminophen (Acetaminophen 325 Mg Tablet) 975 mg PO Q6H PRN PRN Reason: Pain, Mild (Pain Scale 1-3), fever or headache Last Admin: 11/02/23 21:53 Dose: 975 mg Documented By: SUE Alprazolam (Alprazolam 0.5 Mg Tablet) 1 mg PO TID [facility] Last Admin: 11/03/23 08:48 Dose: 1 mg Documented By: WILL Aspirin (Aspirin Enteric Coated 81 Mg Tablet.) 81 mg PO DAILY [facility] Last Admin: 11/03/23 08:48 Dose: 81 mg Documented By: WILL Atorvastatin Calcium (Atorvastatin Calcium 40 Mg Tablet) 40 mg PO BEDTIME [facility] Last Admin: 11/02/23 21:54 Dose: 40 mg Documented By: SUE Carvedilol (Carvedilol 3.125 Mg Tablet) 3.125 mg PO BIDWM [facility]; Protocol Last Admin: 11/03/23 08:48 Dose: 3.125 mg Documented By: WILL Glucose (Glucose Gel 15 Gm Gel..Gram.) 15 gm PO Q15M PRN; Protocol PRN Reason: per Hypoglycemia Standing Ord. Heparin Sodium (Porcine) (Heparin Sodium,Porcine 5,000 Unit/Ml Vial) 5,000 unit SUBCUT Q8H [facility] Last Admin: 11/03/23 08:49 Dose: 5,000 unit Documented By: WILL Dextrose (D10) 250 mls @ 750 mls/hr IV Q15M PRN; Protocol PRN Reason: per Hypoglycemia Standing Ord. Ceftriaxone Sodium 2 gm/ (Sodium Chloride) 50 mls @ 100 mls/hr IV Q24H [facility] Last Infusion: 11/03/23 09:35 Dose: Infused Documented By: WILL Insulin Glargine (Insulin Glargine,Hum.Rec.Anlog 100 Unit/Ml 10 Ml Vial) 15 unit SUBCUT BEDTIME [facility] Last Admin: 11/02/23 21:54 Dose: 15 unit Documented By: SUE Insulin Human Lispro (Insulin Lispro 100 Unit/Ml 3 Ml Vial) 0 unit SUBCUT QIDACHS [facility]; Protocol Last Admin: 11/03/23 11:43 Dose: 2 unit Documented By: WILL Lamotrigine (Lamotrigine 100 Mg Tablet) 100 mg PO DAILY [facility] Last Admin: 11/03/23 08:48 Dose: 100 mg Documented By: WILL Lidocaine (Lidocaine 4 % Patch Adh..Patch) 1 patch TRANSDERMA DAILY PRN PRN Reason: Pain Magnesium Oxide (Magnesium Oxide 400 Mg Tablet) 400 mg PO BID [facility] Last Admin: 11/03/23 08:48 Dose: 400 mg Documented By: WILL Melatonin (Melatonin 3 Mg Tablet) 6 mg PO BEDTIME PRN PRN Reason: Insomnia Melatonin (Melatonin 3 Mg Tablet) 3 mg PO BEDTIME [facility] Last Admin: 11/02/23 21:53 Dose: 3 mg Documented By: SUE Mirtazapine (Mirtazapine 15 Mg Tablet) 15 mg PO BEDTIME [facility] Last Admin: 11/02/23 21:56 Dose: 15 mg Documented By: SUE Mirtazapine (Mirtazapine 30 Mg Tablet) 30 mg PO DAILY@1800 [facility] Last Admin: 11/02/23 17:22 Dose: 30 mg Documented By: KERMIT Olanzapine (Olanzapine 10 Mg Tablet) 30 mg PO BEDTIME [facility] Last Admin: 11/02/23 21:53 Dose: 30 mg Documented By: SUE Omeprazole (Omeprazole 20 Mg Capsule.) 20 mg PO DAILY@0630 [facility] Last Admin: 11/03/23 05:11 Dose: 20 mg Documented By: SUE Sodium Chloride (0.9 % Sodium Chloride Flush 3 Ml Syringe) 3 ml IVFLUSH QSHIFT [facility] Last Admin: 11/03/23 08:48 Dose: 3 ml Documented By: WILL Vitamin D (Cholecalciferol (Vitamin D3) 25 Mcg Tablet) 100 mcg PO DAILY [facility] Last Admin: 11/03/23 08:48 Dose: 100 mcg Documented By: WILL Labs 11/03/23 10:26 11/03/23 10:26 Labs: Laboratory Results - last 24 hr 11/02/23 11/02/23 11/03/23 16:07 20:42 08:26 MCV MCH MCHC RDW Plt Count MPV Immature Gran % (Auto) Neut % (Auto) Lymph % (Auto) [place] % (Auto) Eos % (Auto) Baso % (Auto) Lymph # (Auto) [place] # (Auto) Eos # (Auto) Baso # (Auto) Abs Immat Gran (auto) Absolute Neuts (auto) Absolute Nucleated RBC Nucleated RBC % (auto) Anion Gap Estim Creat Clear Calc Estimated GFR POC Glucose 143 H 244 H 121 H Random Glucose Calcium Magnesium Total Bilirubin Direct Bilirubin AST ALT Alkaline Phosphatase Total Protein Albumin Lipase 11/03/23 11/03/23 10:26 11:25 MCV 92.5 MCH 29.7 MCHC 32.1 RDW 14.3 Plt Count 123 L MPV 9.8 Immature Gran % (Auto) 0.3 Neut % (Auto) 64.1 Lymph % (Auto) 18.8 L [place] % (Auto) 9.4 Eos % (Auto) 7.1 H Baso % (Auto) 0.3 Lymph # (Auto) 1.2 [place] # (Auto) 0.6 Eos # (Auto) 0.5 H Baso # (Auto) 0.0 Abs Immat Gran (auto) 0.02 Absolute Neuts (auto) 4.2 Absolute Nucleated RBC 0.000 Nucleated RBC % (auto) 0.0 Anion Gap 13 Estim Creat Clear Calc 52.6 Estimated GFR 41 POC Glucose 184 H Random Glucose 201 H Calcium 9.2 D Magnesium 1.9 Total Bilirubin 0.4 Direct Bilirubin 0.2 AST 23 ALT 37 Alkaline Phosphatase 110 Total Protein 6.2 L Albumin 3.2 L Lipase < 4 L Microbiology Microbiology Results: Microbiology 11/01/23 18:57 Blood Culture - Preliminary Blood - Venous Gram negative geovanna 11/01/23 20:12 Urine Culture - Final Urine clean catch - Urine munoz top Escherichia coli 11/01/23 18:36 Blood Culture - Preliminary Blood - Venous No growth after 24 hours. Assessment and Plan (1) Gram-negative bacteremia: Status: Acute Plan Juma Oakley is a 68 y/o man with PMHx significant neurogenic bladder, prostate/bladder CA and nephrolithiasis admitted with: Sepsis due to UTI and GNR bacteremia Met sepsis criteria with tachycardia, fever. Lactic acid normal, blood pressure stable. No evidence of severe features Initially treated with IV Zosyn, will transitioned to IV ceftriaxone Follow urine culture, blood cultures Gram-negative geovanna bacteremia Likely due to urinary source Initially treated with Zosyn to cover for possible intra-abdominal pathology, will transition to IV ceftriaxone as no choledocholithiasis has been identified Follow results of sensitivities TESSA on CKD stage 3 Start gentle IV fluid Lisinopril on hold Follow renal function Thrombocytopenia Likely due to acute illness/bacteremia Follow CBC Choledocholithiasis + stone in the distal pancreatic duct near its junction with the CBD. No acute GI symptoms. LFTs are normal. GI consult - plan for abdominal ultrasound Type 2 diabetes mellitus. Continue Lantus and insulin sliding scale. BG checks before meals at bedtime. Diabetic diet. Hypomagnesemia. Magnesium sulfate 2 g IV x1, improved Hyperlipidemia. Continue statin. CAD. Continue aspirin and statin. Combined diastolic and systolic CHF Gentle IV fluid. Monitor fluid status closely On p.r.n. Lasix at baseline Essential hypertension. Continue carvedilol. Mood disorder/anxiety/dementia Continue Xanax and olanzapine. GAY. Noncompliant with CPAP. Chronic anemia. Continue to monitor. DVT prophylaxis: Heparin subcut Code status: Full Requires ongoing inpatient stay for UTI treatment with IV antibiotic as he has multiple medical comorbidities including cancer and type 2 diabetes and specialist evaluation for choledocholithiasis Quality Stroke Does the patient have a stroke diagnosis?: No VTE Prior VTE?: No VTE Risk Level:: Medical - moderate - high VTE Device Contraindication: Treatment Not Indicated VTE Drug Contraindication: N/A - Med Ordered
[2023-11-03] MEDS: Lactated Ringers 1,000 ML 80 ML IVCONT (14:01)
[2023-11-03 16:00] VITALS: BP 138/60; PULSE 63; RESP 14; TEMP 36.1; O2SAT 100
[2023-11-03 16:37] LABS: Glucose, Whole Blood 164 mg/dL (60-115)
[2023-11-03 16:54] VITALS: BP 138/60; PULSE 63
[2023-11-03] MEDS: Mirtazapine 30 MG TABLET PO (16:54)
[2023-11-03 20:00] VITALS: BP 136/69; PULSE 71; RESP 16; TEMP 36; O2SAT 100
[2023-11-03] MEDS: Insulin Glargine,Hum.rec.anlog 100 UNIT/ML 10 ML VIAL 15 UNIT SUBCUT (20:13)
[2023-11-03] MEDS: Atorvastatin Calcium 40 MG TABLET PO (20:14)
[2023-11-03] MEDS: OLANZapine 10 MG TABLET 30 MG PO (20:14)
[2023-11-03] MEDS: Melatonin 3 MG TABLET PO (20:14)
[2023-11-03] MEDS: Mirtazapine 15 MG TABLET PO (20:14)
[2023-11-03 20:54] LABS: Glucose, Whole Blood 132 mg/dL (60-115)
[2023-11-04 00:24] VITALS: BP 143/61; PULSE 68; RESP 16; TEMP 36; O2SAT 98
[2023-11-04] MEDS: Heparin Sodium,Porcine 5,000 UNIT/ML VIAL 5000 UNIT SUBCUT ×2 (01:53→10:54)
[2023-11-04 04:00] VITALS: BP 147/69; PULSE 83; RESP 16; TEMP 37.1; O2SAT 100
--- NOTE | 2023-11-04 05:06 | PC.NURSE ---
Pt alert to self, not place, time, or situation. Incontinent of large amount of urine, complete bed change. Pt insisting he was getting dressed, wanted this RN to call his and for her to take him home. Able to redirect pt at this time. Male purewick in place, pt pulls at it and on the tubing to the suction canister. Call pina with in reach, bed alarm on, camera in room. Safety maintained throughout shift.
[2023-11-04] MEDS: Omeprazole 20 MG CAPSULE.DR PO (05:47)
[2023-11-04 07:47] LABS: Glucose, Whole Blood 81 mg/dL (60-115)
[2023-11-04 08:00] VITALS: BP 133/86; PULSE 87; RESP 18; TEMP 36.2; O2SAT 100
[2023-11-04 08:13] LABS: Hematocrit 34.8 % (42.0-52.0); Hemoglobin 11.2 g/dl (14.0-18.0); Mean Corpuscular HGB Conc 32.2 g/dl (31.0-36.0); Mean Corpuscular Hemoglobin 29.3 pg (27.0-33.0); Mean Corpuscular Volume 91.1 fL (80.0-98.0); Mean Platelet Volume 9.9 fL (9.4-12.4); Platelet Count 129 X10*3/uL (160-400); Red Blood Count 3.82 X10*6/uL (4.60-5.80); Red Cell Distribution Width 13.8 % (11.0-16.0); White Blood Count 5.3 X10*3/uL (4.8-10.8)
[2023-11-04 10:16] LABS: Anion Gap 11 (12-20); Blood Urea Nitrogen 20 mg/dL (9-16); Calcium 9.3 mg/dL (8.4-10.2); Carbon Dioxide 25 mmol/L (22-29); Chloride 111 mmol/L (96-108); Creatinine Clr Calc Pharmacy 59.8; Estimated Glomerular Filt Rate 47; Glucose Random 126 mg/dL (60-115); Potassium 4.5 mmol/L (3.3-5.1); Sodium 142 mmol/L (135-145)
--- NOTE | 2023-11-04 10:32 | PM.DS ---
DS: Providers Provider Date of Service: 11/04/23 Date of admission: 11/01/23 22:42 Date of discharge: 11/04/23 Primary care physician: Jessica Cardenas NP Consults: 11/02/23 06:22 Consult to Gastroenterology Routine Consulting Provider: All Hutchinson Reason for consultation: Choledocholithiasis Has provider been notified: No Attending physician on discharge: Maxx Wilson Discharging clinician: Sanjuanita Rowe DS: Diagnosis Discharge Diagnosis (1) Gram-negative bacteremia: Status: Acute (2) Urinary tract infection with fever: Status: Acute DS: Summary Hospital Course Hospital Course: From H&P on the day of admission Juma Oakley is a 68 years old man with past medical history significant for severe dementia, type 2 diabetes mellitus on insulin, CAD, GAY (noncompliant with CPAP), neurogenic bladder, prostate/bladder CA and nephrolithiasis was brought to the emergency department via ambulance after he started to fever. HPI was provided by patient's who was at bedside of the patient has significant dementia. The patient has been having chills but he denied any pain, headache, sore throat, cough, chest pain, shortness of breath, nausea, vomiting, diarrhea, pain with urination or blood in urine. The patient is a . He is a former smoker and denied alcohol abuse or illicit drug use. In the ED, he was initially found to have temperature of 101.5 degrees and low-grade tachycardia. There is no hypotension and oxygen saturation is normal on room air. Blood workup was remarkable for leukocytosis of 11.9. There is no lactic acidosis. CRP is 4.6. Hemoglobin is 12.3 and platelet 163. Venous blood gases are normal. There are no significant electrolyte imbalances. LFTs are normal. Renal function is around baseline. Urinalysis consistent with urinary tract infection. Viral testing for COVID-19, RSV influenza is negative. CXR showed no acute cardiopulmonary disease. Left foot x-ray showed no acute abnormalities. Abdominal pelvis CT scan showed marked bladder wall thickening with some pericholecystic inflammatory changes consistent with cystitis, mild prominence of the left renal collecting system compared with the right, choledocholithiasis with stones in the distal pancreatic duct near the junction of the common bile duct. ECG showed normal sinus bradycardia with a HR of 123 bpm and right bundle branch block. ED tx: Ceftriaxone 1 g IV, acetaminophen 975 mg p.o., NS 2 L bolus, Zosyn 4.5 g IV Hospital course by problem: Sepsis due to UTI and GNR bacteremia Met sepsis criteria with tachycardia, fever. Lactic acid normal, blood pressure stable. No evidence of severe features Initially treated with IV Zosyn, transitioned to IV ceftriaxone Urine culture and blood cultures both grew pansensitive E coli will need total of 14 days of antibiotics. outpatient follow up with PCP Gram-negative geovanna bacteremia Likely due to urinary source Initially treated with Zosyn to cover for possible intra-abdominal pathology, will transition to IV ceftriaxone as no choledocholithiasis has been identified Follow results of sensitivities TESSA on CKD stage 3 Lisinopril placed on hold. renal function improving with gentle IVF. Patient is eager to return home today, will recommend outpatient follow up labs in one week. Thrombocytopenia Likely due to acute illness/bacteremia. stable. Recommend outpatient follow-up labs to ensure resolution Choledocholithiasis + stone in the distal pancreatic duct near its junction with the CBD. No acute GI symptoms. LFTs are normal. Seen by GI, abdominal ultrasound negative for stones. No further inpatient workup recommended Hypomagnesemia. Magnesium sulfate 2 g IV x1, improved Time Attestation Discharge Coordination Time (in mins): 40 Quality: Safe Use of Opioids Does Pt have an Active Cancer Diagnosis on the Problem List?: No Quality: Stroke Does the patient have a stroke diagnosis?: No Physical Exam Vital Signs: Vital Signs: Last Vital Signs Temp 97.1 F 11/04/23 08:00 Pulse 87 11/04/23 08:00 Resp 18 11/04/23 08:00 BP 133/86 11/04/23 08:00 Pulse Ox 100 11/04/23 08:00 O2 Del Method Room Air 11/04/23 08:00 BMI result Body Mass Index 35.3 Const: General: cooperative, no acute distress, alert and awake Nutritional Appearance: overweight Orientation/consciousness: oriented to person Resp: Effort & Inspection: normal respiratory effort, able to speak in complete sentences, no respiratory distress and no use of accessory muscles Cardio: Rate: regular rate GI: Inspection: No distended Palpation (GI): Soft to palpation and nontender Neuro: General: oriented to person, moves all extremities and CN's II-XI intact bilaterally Extrem: Other: trace edema DS: Data Data Completed and Pending Completed studies during hospitalization [Text1]: Procedures Assistance with Respiratory Ventilation, Less than 24 Consecutive Hours, Continuous Positive Airway Pressure (04/04/21) Labs on day of discharge: Laboratory Results - last 24 hr 11/03/23 11/03/23 11/03/23 10:26 11:25 16:29 WBC 6.5 RBC 3.47 L Hgb 10.3 L Hct 32.1 L MCV 92.5 MCH 29.7 MCHC 32.1 RDW 14.3 Plt Count 123 L MPV 9.8 Immature Gran % (Auto) 0.3 Neut % (Auto) 64.1 Lymph % (Auto) 18.8 L [place] % (Auto) 9.4 Eos % (Auto) 7.1 H Baso % (Auto) 0.3 Lymph # (Auto) 1.2 [place] # (Auto) 0.6 Eos # (Auto) 0.5 H Baso # (Auto) 0.0 Abs Immat Gran (auto) 0.02 Absolute Neuts (auto) 4.2 Absolute Nucleated RBC 0.000 Nucleated RBC % (auto) 0.0 Sodium 140 Potassium 4.7 Chloride 109 H Carbon Dioxide 23 Anion Gap 13 BUN 24 H Creatinine 1.68 H Estim Creat Clear Calc 52.6 Estimated GFR 41 POC Glucose 184 H 164 H Random Glucose 201 H Calcium 9.2 D Magnesium 1.9 Total Bilirubin 0.4 Direct Bilirubin 0.2 AST 23 ALT 37 Alkaline Phosphatase 110 Total Protein 6.2 L Albumin 3.2 L Lipase < 4 L 11/03/23 11/04/23 11/04/23 20:50 07:27 07:58 WBC 5.3 RBC 3.82 L Hgb 11.2 L Hct 34.8 L MCV 91.1 MCH 29.3 MCHC 32.2 RDW 13.8 Plt Count 129 L MPV 9.9 Immature Gran % (Auto) Neut % (Auto) Lymph % (Auto) [place] % (Auto) Eos % (Auto) Baso % (Auto) Lymph # (Auto) [place] # (Auto) Eos # (Auto) Baso # (Auto) Abs Immat Gran (auto) Absolute Neuts (auto) Absolute Nucleated RBC 0.000 Nucleated RBC % (auto) 0.0 Sodium Potassium Chloride Carbon Dioxide Anion Gap BUN Creatinine Estim Creat Clear Calc Estimated GFR POC Glucose 132 H 81 Random Glucose Calcium Magnesium Total Bilirubin Direct Bilirubin AST ALT Alkaline Phosphatase Total Protein Albumin Lipase 11/04/23 09:35 WBC RBC Hgb Hct MCV MCH MCHC RDW Plt Count MPV Immature Gran % (Auto) Neut % (Auto) Lymph % (Auto) [place] % (Auto) Eos % (Auto) Baso % (Auto) Lymph # (Auto) [place] # (Auto) Eos # (Auto) Baso # (Auto) Abs Immat Gran (auto) Absolute Neuts (auto) Absolute Nucleated RBC Nucleated RBC % (auto) Sodium 142 Potassium 4.5 Chloride 111 H Carbon Dioxide 25 Anion Gap 11 L BUN 20 H Creatinine 1.48 H Estim Creat Clear Calc 59.8 Estimated GFR 47 POC Glucose Random Glucose 126 H Calcium 9.3 Magnesium Total Bilirubin Direct Bilirubin AST ALT Alkaline Phosphatase Total Protein Albumin Lipase Preliminary micro results at discharge 11/01/23 18:36 Blood Culture - Preliminary Blood - Venous No growth after 48 hours. Discharge Plan Discharge Anticipated Discharge Date/Time: 11/04/23 10:40 Patient Disposition: Home Health Service Discharge Diagnosis: sepsis, UTI, bacteremia Referrals: Jessica Cardenas NP [Primary Care Provider] - 1 Week Discharge Medications: New cefuroxime axetil 500 mg tablet 500 mg PO Q12H 13 Days Qty: 26 0RF Continued atorvastatin 80 mg tablet 40 mg PO BEDTIME furosemide 20 mg tablet 20 mg PO DAILY PRN (Reason: weight gain) Rx Instructions: one tab as needed for wt gain 3+ lbs in 24 hours or 5 lbs in one week lisinopril 10 mg tablet 10 mg PO DAILY omeprazole 20 mg capsule,delayed release(DR/EC) 20 mg PO DAILY@0630 lamotrigine 100 mg tablet 100 mg PO DAILY olanzapine 15 mg tablet 30 mg PO BEDTIME mirtazapine 30 mg tablet 30 mg PO DAILY@1800 aspirin 81 mg Tablet,Delayed Release (Dr/Ec) 81 mg PO DAILY lidocaine 5 % Adhesive Patch,Medicated 1 patch TOPICAL DAILY PRN (Reason: Pain) Rx Instructions: leave on most painful area for up to 12 hrs (leave off for 12 hrs) insulin glargine [Lantus Solostar U-100 Insulin] 100 unit/mL (3 mL) Insulin Pen 26 unit SUBCUT DAILY alprazolam 1 mg Tablet 1 mg PO TID melatonin 3 mg Tablet 3 mg PO BEDTIME carvedilol 3.125 mg tablet 3.125 mg PO BIDWM Rx Instructions: must administer with a meal/food sodium chloride 0.9 % Solution 250 ml IRRIGATION DAILY PRN (Reason: Wound Care) insulin aspart U-100 [Novolog FlexPen U-100 Insulin] 100 unit/mL (3 mL) Insulin Pen 14 unit SUBCUT TIDWM Jardiance 10 mg Tablet 10 mg PO DAILY magnesium oxide 400 mg magnesium Tablet 400 mg PO BID acetaminophen 500 mg Tablet 1,000 mg PO BID PRN (Reason: Pain) cholecalciferol (vitamin D3) [Vitamin D3] 50 mcg (2,000 unit) Tablet 100 mcg PO DAILY mirtazapine 15 mg Tablet 15 mg PO BEDTIME Discharge Orders: Discharge Order (Routine); Ordered 11/04/23 Ordered By: Sanjuanita Rowe Activity on Discharge: As tolerated Stand Alone Forms: Patient Portal Discharge page Print Language: Portuguese Other Ambulatory Orders: Basic Metabolic Panel (Routine) Timeframe: 1 Week Facility: [facility] - Location: Laboratory Ordered By: Sanjuanita Rowe Complete Blood Count no Diff (Routine) Timeframe: 1 Week Facility: [facility] - Location: Laboratory Ordered By: Sanjuanita Rowe Care Plan Goals: See below Health Concerns: Sepsis, UTI, bacteremia TESSA Thrombocytopenia Plan of Treatment: For UTI and bacteremia complete course of as prescribed For TESSA, kidney function is improving. Recommend repeat lab in week Thrombocytopenia, likely due to acute infection. Recommend repeat labs in week to ensure improvement Call to schedule follow-up appointment with PCP Assessment: See discharge summary
--- NOTE | 2023-11-04 10:47 | P.F2F_ITS ---
Service Date Service Date: 11/04/23 Encounter Date of encounter: 11/04/23 Reasons for Services Signs and symptoms assessed: needs [place] [facility] [place] Reason for [facility] [facility]: medication management Overseeing Care: Jessica Cardenas Homebound: Leaving the home is medically contraindicated at this time without the asist of a device and/or another person due th the listed conditions above and below. Reason homebound: cognitively impaired / unsafe Certification: Based on the above findings, I certify that this patient is confined to the home and needs intermittent [facility] care, physical therapy and/or speech therapy, or continues to need occupational therapy. The patient is under my care, and I have initiated the establishment of the plan of care. The patient will be followed by a physician who will periodically review the plan of care. Time Spent With Patient Time: Total time managing care of this patient today ____ minutes.
[2023-11-04 10:54] VITALS: BP 133/86; PULSE 87
[2023-11-04] MEDS: carvediloL 3.125 MG TABLET PO (10:54)
[2023-11-04] MEDS: Aspirin Enteric Coated 81 MG TABLET.DR PO (10:54)
[2023-11-04] MEDS: lamoTRIgine 100 MG TABLET PO (10:54)
[2023-11-04] MEDS: Cholecalciferol (Vitamin D3) 25 MCG TABLET 100 MCG PO (10:54)
[2023-11-04] MEDS: ALPRAZolam 0.5 MG TABLET 1 MG PO (10:54)
[2023-11-04] MEDS: cefTRIAXone sodium 2 GM in 0.9 % Sodium Chloride 50 ML IV (10:55)
[2023-11-04] MEDS: Magnesium Oxide 400 MG TABLET PO (10:55)
[2023-11-04] MEDS: 0.9 % Sodium Chloride Flush 3 ML SYRINGE IVFLUSH (10:55)
[2023-11-04 11:08] LABS: Glucose, Whole Blood 132 mg/dL (60-115)
--- NOTE | 2023-11-04 12:45 | MHC.CM.PN ---
Addendum entered by Yanely Buxton 11/04/23 15:14: Correction* [facility] arrived to [facility] pt home as [facility]. Addendum entered by Yanely Buxton 11/04/23 14:53: Pts had come in and left already, she is home now and is not willing to return to warehouse picker the patient. [facility] after hours [facility] called to obtain [facility] for an ambulance transport home for him, the [facility] customer engagement representative who answer the call will be scheduling the pts transport via [facility], and they should arrive in the next hour. Original Note: Pt is medically cleared for discharge home with resumption of previous [facility] services and family support, in addition to new [facility]. [facility] request, This CM faxed the pts clinicals to the PA for auth. Pts will transport him home.
--- NOTE | 2023-11-06 12:24 | MHC.CM.PN ---
[facility] REN[facility] informed this CM that they were told by [place] [facility] LAZARA spoke with Laurence at the [place] @ [phone], informed her that [facility] denied, and Laurence has approved [facility]. Per Laurence's request, LAZARA has faxed dc summary and face to face to Laurence @ [phone].
== END 2023-11-04 15:34 | disposition home health service (06) | DRG 872 ==
LOC: HO.ED 22:34 → HO.EDOVER 22:49 → HO.IMC 23:35
PROVIDERS: Admitting Provider Internal Medicine; Emergency Provider Emergency Medicine; PCP Nurse Practitioner Adult Health; Referring Provider Emergency Medicine; Visit Provider Physician Assistant Medical
DX: A41.51 Sepsis due to Escherichia coli [E. coli] (principal); N39.0 Urinary tract infection, site not specified; I13.0 Hypertensive heart and chronic kidney disease with heart failure and stage 1 through stage 4 chronic kidney disease, or unspecified chronic kidney disease; I50.42 Chronic combined systolic (congestive) and diastolic (congestive) heart failure; B96.20 Unspecified Escherichia coli [E. coli] as the cause of diseases classified elsewhere; K80.50 Calculus of bile duct without cholangitis or cholecystitis without obstruction; E11.9 Type 2 diabetes mellitus without complications; E78.5 Hyperlipidemia, unspecified; E83.42 Hypomagnesemia; N18.31 Chronic kidney disease, stage 3a; F41.9 Anxiety disorder, unspecified; D75.838 Other thrombocytosis; F39 Unspecified mood [affective] disorder; G47.33 Obstructive sleep apnea (adult) (pediatric); F03.C0 Unspecified dementia, severe, without behavioral disturbance, psychotic disturbance, mood disturbance, and anxiety; D63.1 Anemia in chronic kidney disease; Z20.822 Contact with and (suspected) exposure to COVID-19; Z91.199 Patient's noncompliance with other medical treatment and regimen due to unspecified reason; Z87.891 Personal history of nicotine dependence; Z79.4 Long term (current) use of insulin; Z79.82 Long term (current) use of aspirin; Z79.899 Other long term (current) drug therapy
CPT/HCPCS: 0241U; 36415; 71045; 73620; 74177; 76705; 80048; 80053; 80076; 81001; 82248; 82803; 82947; 83605; 83690; 83735; 85025; 85027; 86140; 87040; 87077; 87086; 87088; 87186; 87205; 93005; 99285; J0696; J1644; J2543; J3475; J7120; Q9967

== ENCOUNTER → 2023-11-01 18:19 | Outpatient (BNV) | payer OTHER, SELFPAY | PROVIDERS: Admitting Provider Internal Medicine; Emergency Provider Emergency Medicine; Visit Provider Internal Medicine Cardiovascular Disease | DX: R53.1 Weakness (principal) | CPT/HCPCS: 93010 ==

== ENCOUNTER → 2023-11-01 22:42 | Outpatient (BNV) | payer OTHER, SELFPAY | PROVIDERS: Admitting Provider Internal Medicine; Emergency Provider Emergency Medicine; Visit Provider Internal Medicine | DX: N39.0 Urinary tract infection, site not specified (principal); R78.81 Bacteremia; N18.30 Chronic kidney disease, stage 3 unspecified; N17.9 Acute kidney failure, unspecified | CPT/HCPCS: 99223; 99232; 99239; G0180 ==

== ENCOUNTER → 2023-11-01 22:42 | Outpatient (BNV) | payer OTHER, SELFPAY | PROVIDERS: Admitting Provider Internal Medicine; Emergency Provider Emergency Medicine; Visit Provider Internal Medicine Gastroenterology | DX: R78.81 Bacteremia (principal) | CPT/HCPCS: 99223 ==

== ENCOUNTER 2023-12-28 16:10 | Inpatient (IN) | payer OTHER, SELFPAY ==
--- NOTE | ~2023-12-28 | CT_ITS ---
EXAMINATION: CT ABDOMEN AND PELVIS WITHOUT CONTRAST CLINICAL INFORMATION: Acute kidney injury COMPARISON: CT scan of abdomen and pelvis on 11/01/2023 TECHNIQUE: Multidetector volumetric imaging was performed from the superior aspect of the liver through the pubic symphysis. Sagittal and coronal reformatted images were obtained on the technologist's workstation. This CT examination was performed using dose optimization techniques as appropriate, variously including the following: *Automated exposure control *Adjustment of mA and/or kV according to patient size (this includes techniques or standardized protocols for targeted exams where dose is matched to indication/reason for exam; i.e. extremities or head) *Use of iterative reconstruction technique DLP: 916 mGy-cm FINDINGS: CT ABDOMEN LUNG BASES: Bilateral posterior lung bases crescent-shaped dependent atelectasis are seen. LIVER: Liver appears to be grossly normal on noncontrast enhanced images. GALLBLADDER AND BILIARY TREE: Gallbladder could be markedly contracted and poorly visualized. No calcified gallstone could be identified. Common bile duct is not dilated. SPLEEN: The spleen is normal in size without focal lesion on noncontrast enhanced images. PANCREAS: Extensive dystrophic calcifications are seen in the pancreas. The largest calcification is seen in the pancreatic head, measuring 1.8 x 1.2 cm in size. ADRENAL GLANDS: Adrenal glands are normal in size without focal lesion bilaterally. KIDNEYS: The visualized bilateral kidneys are normal in size without stones. Extensive intrarenal atherosclerotic calcifications are present along the renal artery branches. No caliectasis or dilated pelvis is seen. No dilated ureters are found. BOWELS: There is no abnormal dilatation of the large and small bowel loops. RETROPERITONEUM: No abnormally enlarged retroperitoneal lymph nodes, mass or hematoma could be seen. BLOOD VESSELS: Abdominal aorta is normal in size with extensive atherosclerotic calcifications extending to the main branches and bilateral iliac arteries. Left common iliac arterial stent is present. ABDOMINAL WALL: Small umbilical hernia containing mesenteric fat is seen. PERITONEUM: There is no ascites. There were no abdominal peritoneal inflammatory changes seen. No free peritoneal air was seen. BONES: There is mild L1-L2 dextroscoliosis. Unchanged moderate compression fracture of L4 is seen. No fracture or dislocation. No focal bone lesion diagnostic of metastatic disease could be seen in the lumbar region. CT PELVIS URINARY BLADDER: The visualized urinary bladder is poorly filled with urine. There is marked circumferential mural thickening of urinary bladder. No intraluminal stones are found. No abnormally dilated distal ureters are seen. BOWELS: There is marked fecal distention of the rectum, distal and mid sigmoid colon. Normal appendix is seen inferior to the cecum. GENITAL ORGANS: Seminal vesicles are unremarkable. Prostate gland contains metallic fiducials. LYMPH NODES: No abnormally enlarged iliac or inguinal lymph nodes are seen. PERITONEUM: No inflammatory changes, ascites or free peritoneal air are found in the pelvis. BONES: No fracture or dislocation. No focal bone lesion diagnostic of metastatic disease could be seen in the pelvis. CT/CT abdomen pelvis wo IV con IMPRESSION: 1. Unchanged, No evidence of nephrolithiasis or obstructive uropathy. 2. Unchanged Marked circumferential mural thickening of urinary bladder, compatible with bladder outflow obstruction or chronic cystitis. 3. Unchanged Extensive dystrophic calcifications in the pancreas, compatible with sequelae of chronic pancreatitis. 4. Extensive atherosclerotic calcifications of the abdominal aorta and bilateral iliac arteries. Unchanged, Left common iliac arterial stent is present. 5. Interval development of Marked fecal impaction in the rectum, distal and mid sigmoid colon. 6. Unchanged moderate compression fracture of L4. 7. Unchanged metallic fiducials in the prostate. Fleischner guidelines were followed. Electronically signed by: Mone Mejia MD 12/29/2023 01:37 PM EDT
[2023-12-28 16:19] VITALS: BP 100/68; BP 136/75; PULSE 71; PULSE 86; RESP 18; TEMP 37.2; O2SAT 100; BMI 38.0
--- NOTE | 2023-12-28 16:37 | ECG_ITS ---
Test Reason : ARRYTHMIA Blood Pressure : / mmHG Vent. Rate : 068 BPM Atrial Rate : 068 BPM P-R Int : 232 ms QRS Dur : 154 ms QT Int : 446 ms P-R-T Axes : 082 027 023 degrees QTc Int : 474 ms Poor data quality, interpretation may be adversely affected Sinus rhythm with 1st degree A-V block Right bundle branch block Possible Inferior infarct (cited on or before 19-MAY-2023) Abnormal ECG When compared with ECG of 01-NOV-2023 18:43, NV interval has increased Vent. rate has decreased BY 55 BPM Referred By: Scarlet Alamo Electronically Signed By:LEONARDO HULL
--- NOTE | 2023-12-28 17:34 | PC.NURSE ---
pt refusing IV access but stated he would allow a lab draw, tech in room to draw labs, cardiac exercise specialist intact, will continue with plan of care.
--- NOTE | 2023-12-28 18:23 | PC.NURSE ---
this rn assumed care of pt, per , attempt IV one more time, pt allowed this RN to attempt. unable to obtain access, pt reports he will not allow this rn to attempt again. aware.
[2023-12-28 18:34] VITALS: BP 116/78; PULSE 66; RESP 16; TEMP 36.6; O2SAT 98
--- NOTE | 2023-12-28 19:06 | PC.NURSE ---
at bedside placing ultrasound guided IV. 18G placed in left ac, labs obtained.
[2023-12-28 19:08] LABS: MANUAL DIFF FLAG NO
[2023-12-28 19:10] LABS: Basophils Percent Auto 0.5 % (0-2); Eosinophils Absolute Auto 0.5 X10*3/uL (0.0-0.4); Eosinophils Percent Auto 9.1 % (0-4); Hematocrit 39.5 % (42.0-52.0); Hemoglobin 12.9 g/dl (14.0-18.0); Imm Gran Abs Auto 0.01 X10*3/uL (0.00-0.03); Imm Gran Pct Auto 0.2 % (0.0-0.4); Lymphocytes Percent Auto 33.4 % (20-40); Mean Corpuscular HGB Conc 32.7 g/dl (31.0-36.0); Mean Corpuscular Hemoglobin 29.2 pg (27.0-33.0); Mean Corpuscular Volume 89.4 fL (80.0-98.0); Mean Platelet Volume 10.4 fL (9.4-12.4); Monocytes Absolute Auto 0.5 X10*3/uL (0.1-1.2); Monocytes Percent Auto 7.6 % (2-11); Neutrophils Absolute Auto 2.9 x10*3/uL (2.0-8.3); Neutrophils Percent Auto 49.2 % (45-73); Platelet Count 152 X10*3/uL (160-400); Red Blood Count 4.42 X10*6/uL (4.60-5.80); Red Cell Distribution Width 12.9 % (11.0-16.0); White Blood Count 5.9 X10*3/uL (4.8-10.8)
--- NOTE | 2023-12-28 19:10 | ED.GENADULT ---
HPI - General Adult General Chief complaint: Recheck/Abnormal Lab/Rx Stated complaint: abn labs per pcp Time Seen by Provider: 12/28/23 16:21 History of Present Illness ED Provider: Dr. Alamo HPI narrative: 68 y/o M patient; PMH alzheimer's disease, T2DM, CAD, GAY, neurogenic bladder, hx prostate/bladder CAD; presents from home with for reported elevated creatinine and potassium. Patient was seen by [facility] PCP yesterday 12/27/2023. He had routine blood work completed and UA completed. Urine showed increased proteinuria. Labs showed Cr 6.1 and creatinine 1.8. Patient was referred emergently to the emergency department. Patient's denies any current medical complaints such as: nausea/vomiting, abdominal pain, diarrhea. He has an appropriate appetite. Related Data Home Medications ?Medication ?Instructions ?Recorded ?Confirmed aspirin 81 mg tablet,delayed 81 mg PO DAILY 04/04/21 11/02/23 release insulin glargine 100 unit/mL (3 26 unit subcut DAILY 03/05/22 11/02/23 mL) subcutaneous pen (Lantus Solostar U-100 Insulin) lidocaine 5 % topical patch 1 patch topical DAILY PRN Pain 03/05/22 11/02/23 atorvastatin 80 mg tablet 40 mg PO BEDTIME 08/11/22 11/02/23 furosemide 20 mg tablet 20 mg PO DAILY PRN weight gain 08/11/22 11/02/23 lamotrigine 100 mg tablet 100 mg PO DAILY 08/11/22 11/02/23 lisinopril 10 mg tablet 10 mg PO DAILY 08/11/22 11/02/23 mirtazapine 30 mg tablet 30 mg PO DAILY@1800 08/11/22 11/02/23 olanzapine 15 mg tablet 30 mg PO BEDTIME 08/11/22 11/02/23 omeprazole 20 mg capsule,delayed 20 mg PO DAILY@0630 08/11/22 11/02/23 release alprazolam 1 mg tablet 1 mg PO TID Anxiety 07/02/23 11/02/23 carvedilol 3.125 mg tablet 3.125 mg PO BIDWM 07/02/23 11/02/23 melatonin 3 mg tablet 3 mg PO BEDTIME 07/02/23 11/02/23 acetaminophen 500 mg tablet 1,000 mg PO BID PRN Pain 11/02/23 11/02/23 cholecalciferol (vitamin D3) 50 100 mcg PO DAILY 11/02/23 11/02/23 mcg (2,000 unit) tablet (Vitamin D3) empagliflozin 10 mg tablet 10 mg PO DAILY 11/02/23 11/02/23 (Jardiance) insulin aspart U-100 100 unit/mL 14 unit subcut TIDWM 11/02/23 11/02/23 (3 mL) subcutaneous pen (Novolog FlexPen U-100 Insulin aspart) magnesium oxide 400 mg PO BID 11/02/23 11/02/23 mirtazapine 15 mg tablet 15 mg PO BEDTIME 11/02/23 11/02/23 sodium chloride 0.9 % irrigation 250 ml irrigation DAILY PRN Wound 11/02/23 11/02/23 solution Care Previous Rx's ?Medication ?Instructions ?Recorded cefuroxime axetil 500 mg tablet 500 mg PO Q12H 13 days #26 tabs 11/04/23 Allergies Allergy/AdvReac Type Severity Reaction Status Date / Time quetiapine [From Seroquel] Allergy Mild LEG Verified 12/28/23 16:25 SWELLING haloperidol [From Haldol] Allergy Unknown Verified 12/28/23 16:25 onion [Onion] AdvReac Unknown NAUSEA & Verified 12/28/23 16:25 VOMITING PEPPERS AdvReac Mild NAUSEA & Uncoded 11/01/23 18:15 VOMITING Review of Systems Review of Systems: Yes all other systems are reviewed and are negative PMFSH Past Medical History Attestation statement: The following information was validated with the patient. Source: old records reviewed Medical History Diabetes Anxiety Coronary artery disease NSTEMI (non-ST elevated myocardial infarction) Cardiomyopathy Sleep apnea Mini stroke Nephrolithiasis Neurogenic bladder Malignant neoplasm of overlapping sites of bladder Prostate cancer Surgical History S/P cardiac cath History of cardiac cath Family History Family History Father CAD (coronary artery disease) Pacemaker Social History Social History Household Members: Spouse and None Housing: House Do you presently have visiting nurse or other home services: Yes Unable to assess alcohol history related to: Unknown Alcohol intake: never Patient Tobacco Use Status: Former Tobacco user Tobacco use type: Cigarette Smoked in Last 30 Days: No Second Hand Smoke Exposure: Yes Use of substances other than those prescribed or required for medical reasons: No Advance Directives: Yes Advance Directives on File: Yes Advance Directives Date on File: 04/12/21 Do you have a plan to hurt others: No Plan service: Yes Current occupational status: disabled Physical Exam ED Vital Signs: Vital Signs - 24 hr 12/28/23 16:19 12/28/23 18:34 Temperature 98.9 F 97.9 F Pulse Rate 71 66 Respiratory Rate 18 16 Blood Pressure 136/75 116/78 Pulse Oximetry 100 98 Oxygen Delivery Method Room Air Room Air BMI result Body Mass Index 38.0 Patient is afebrile and hemodynamically stable Const General: cooperative HENMT Head: Yes normal to inspection and Yes atraumatic Eyes General: appearance normal, both eyes and all related structures Pupils: Equal, round and reactive pupils present EOM: EOMs intact bilaterally Neck Neck: Yes normal visual inspection, Yes full ROM, Yes supple and No tender Chest Chest palpation & inspection: normal inspection of the chest and normal palpation of entire chest wall Resp Effort & Inspection: normal respiratory effort, able to speak in complete sentences, no cough and no respiratory distress Auscultation: clear to auscultation bilaterally Cardio Rate: regular rate Rhythm: regular rhythm GI Inspection: No Abdominal wall edema and No distended Palpation (GI): Soft to palpation, not firm, nontender, no guarding and not rigid Auscultation: normal bowel sounds Back/Spine/Pelvis Back: No back tenderness Neuro Cranial nerves: Yes Equal, round and reactive pupils present Extrem Other: Contracted hands bilaterally Course Course Course Narrative: Patient is afebrile and hemodynamically stable. Will obtain repeat labs. Difficulty with obtaining IV access, US IV access obtained by pr. Labs reviewed. No leukocytosis. Baseline anemia. Cr 2.07, previously 1.48 on 11/04/2023 and 1.8 on labs yesterday 12/27/2023. Potassium is 5. Patient will require admission for TESSA. Providing 1L IVF. Obtaining urine studies. Plan: Admit to hospitalist Procedures EJ/Peripheral Line Arm L: Time Out Performed: Yes Skin Cleansed in Sterile Fashion: Yes Size (gauge): 18 IV Secured and Dressing Applied: Yes Patient Tolerated Procedure: well and no complications Medical Decision Making Lab Data 12/28/23 19:04 12/28/23 19:04 Labs: Lab Results 12/28/23 Range/Units 19:04 WBC 5.9 (4.8-10.8) X10*3/uL RBC 4.42 L (4.60-5.80) X10*6/uL Hgb 12.9 L (14.0-18.0) g/dl Hct 39.5 L (42.0-52.0) % MCV 89.4 (80.0-98.0) fL MCH 29.2 (27.0-33.0) pg MCHC 32.7 (31.0-36.0) g/dl RDW 12.9 (11.0-16.0) % Plt Count 152 L (160-400) X10*3/uL MPV 10.4 (9.4-12.4) fL Immature Gran % (Auto) 0.2 (0.0-0.4) % Neut % (Auto) 49.2 (45-73) % Lymph % (Auto) 33.4 (20-40) % [place] % (Auto) 7.6 (2-11) % Eos % (Auto) 9.1 H (0-4) % Baso % (Auto) 0.5 (0-2) % Lymph # (Auto) 2.0 (1.2-4.9) X10*3/uL [place] # (Auto) 0.5 (0.1-1.2) X10*3/uL Eos # (Auto) 0.5 H (0.0-0.4) X10*3/uL Baso # (Auto) 0.0 (0.0-0.2) X10*3/uL Abs Immat Gran (auto) 0.01 (0.00-0.03) X10*3/uL Absolute Neuts (auto) 2.9 (2.0-8.3) x10*3/uL Absolute Nucleated RBC 0.000 (0.0-0.012) X10*3/uL Nucleated RBC % (auto) 0.0 (0.0-0.2) /100WBC Sodium 142 (135-145) mmol/L Potassium 5.0 (3.3-5.1) mmol/L Chloride 111 H (96-108) mmol/L Carbon Dioxide 25 (22-29) mmol/L Anion Gap 11 L (12-20) BUN 53 H (9-16) mg/dL Creatinine 2.07 H (0.5-1.4) mg/dL Estim Creat Clear Calc 40.5 Estimated GFR 32 Random Glucose 155 H (60-115) mg/dL Calcium 9.9 D (8.4-10.2) mg/dL Magnesium 1.8 (1.6-2.6) mg/dL Independent Interpretation I performed an independent interpretation of an: EKG Interpretation: NSR 68BPM with RBBB without ischemic changes Discharge Plan Discharge Clinical Impression: TESSA (acute kidney injury) Patient Disposition: Admitted As Inpatient Print Language: Peruvian
[2023-12-28 19:43] LABS: Anion Gap 11 (12-20); Blood Urea Nitrogen 53 mg/dL (9-16); Calcium 9.9 mg/dL (8.4-10.2); Carbon Dioxide 25 mmol/L (22-29); Chloride 111 mmol/L (96-108); Creatinine Clr Calc Pharmacy 40.5; Estimated Glomerular Filt Rate 32; Glucose Random 155 mg/dL (60-115); Magnesium 1.8 mg/dL (1.6-2.6); Sodium 142 mmol/L (135-145)
--- NOTE | 2023-12-28 20:18 | PM.IMHP ---
History of Present Illness Date of Service: 12/28/23 Attending physician on admission: Che Malik Chief Complaint: Abnormal labs Pt is a 68-year-old male with a PMH significant for?Alzheimer's disease with behavioral disturbances, HFrEF, CAD, HTN, insulin-dependent diabetes type 2, neurogenic bladder, hx of prostate and bladder cancer, CKD 3, COPD, and PTSD who presents from home to the ED for evaluation of abnormal outpatient labs. Patient is alert and oriented to self only and incapable of providing an accurate HPI, which is instead taken from chart and provider review, as well as /HCP who is at bedside. Patient was seen by PCP via telehealth yesterday on 12/27/2023. Routine blood work and UA was completed at that time and apparently found hyperkalemia of 6.1 and creatinine elevated at 1.8. Patient's was notified earlier this afternoon and told to come to the ED for further evaluation. Patient apparently complained of right-sided abdominal pain a few days ago that has since resolved, though otherwise has been in his normal state of health. No nausea, vomiting, diarrhea. He is eating and drinking has fluctuated recently, and notes it has been more difficult lately to get him to eat or drink regularly. Has taken to providing him Ensures as a supplement. Patient himself mildly agitated and wanting to go home, but otherwise voices no acute medical complaints at this time. In the ED pt was hemodynamically stable with vitals WNL. Labs were significant for elevated BUN of 53 and creatinine 2.07 (up from 1.48 on 10/15/2023), otherwise grossly unremarkable and around baseline for patient. No leukocytosis. Stable H&H. No significant electrolyte abnormalities. UA pending. EKG demonstrated sinus rhythm first-degree AV block and RBBB, but no evidence of significant ST elevations or depressions. Pt was treated with 1 L IVF. Pt will be admitted to the hospital for treatment and further evaluation of TESSA in the setting of dehydration from reduced p.o. intake. Review of Systems Review of Systems: Patient currently has no acute medical complaints at this time, though examined interview limited due to patient's mentation and advanced dementia [facility] Medical History Diabetes Anxiety Coronary artery disease NSTEMI (non-ST elevated myocardial infarction) Cardiomyopathy Sleep apnea Mini stroke Nephrolithiasis Neurogenic bladder Malignant neoplasm of overlapping sites of bladder Prostate cancer Family History Father CAD (coronary artery disease) Pacemaker Surgical History S/P cardiac cath History of cardiac cath Social History Household Members: Spouse and None Housing: House Do you presently have visiting nurse or other home services: Yes Unable to assess alcohol history related to: Unknown Alcohol intake: never Patient Tobacco Use Status: Former Tobacco user Tobacco use type: Cigarette Smoked in Last 30 Days: No Second Hand Smoke Exposure: Yes Use of substances other than those prescribed or required for medical reasons: No Advance Directives: Yes Advance Directives on File: Yes Advance Directives Date on File: 04/12/21 Do you have a plan to hurt others: No Plan Nutrition Risks: No Nutritional Risk service: Yes Current occupational status: disabled Meds Allergies Allergy/AdvReac Type Severity Reaction Status Date / Time quetiapine [From Seroquel] Allergy Mild LEG Verified 12/28/23 16:25 SWELLING haloperidol [From Haldol] Allergy Unknown Verified 12/28/23 16:25 onion [Onion] AdvReac Unknown NAUSEA & Verified 12/28/23 16:25 VOMITING PEPPERS AdvReac Mild NAUSEA & Uncoded 11/01/23 18:15 VOMITING Active Medications: Current Medications Acetaminophen (Acetaminophen 325 Mg Tablet) 650 mg PO Q6H PRN PRN Reason: Pain, Mild (Pain Scale 1-3), fever or headache Calcium Carbonate (Calcium Carbonate 750 Mg Tab.Chew) 750 mg PO Q4H PRN PRN Reason: Heartburn Enoxaparin Sodium (Enoxaparin Sodium 40 Mg/0.4 Ml Syringe) 40 mg SUBCUT Q24H HUGO Magnesium Hydroxide (Milk Of Magnesia 30 Ml Oral.Susp) 30 ml PO DAILY PRN PRN Reason: Constipation Melatonin (Melatonin 3 Mg Tablet) 6 mg PO BEDTIME PRN PRN Reason: Insomnia Ondansetron HCl (Ondansetron Hcl 4 Mg/2 Ml Vial) 4 mg IVPUSH Q8H PRN PRN Reason: Nausea and Vomiting Sodium Chloride (0.9 % Sodium Chloride Flush 3 Ml Syringe) 3 ml IVFLUSH QSHIFT [facility] Home Medications ?Medication ?Instructions ?Recorded ?Confirmed ?Last Taken ?Type aspirin 81 mg tablet,delayed 81 mg PO DAILY 04/04/21 12/28/23 12/28/23 12:00 History release insulin glargine 100 unit/mL (3 22 unit subcut BEDTIME 03/05/22 12/28/23 12/27/23 History mL) subcutaneous pen (Lantus Solostar U-100 Insulin) lidocaine 5 % topical patch 1 patch topical DAILY PRN Pain 03/05/22 12/28/23 11/01/23 History atorvastatin 80 mg tablet 40 mg PO BEDTIME 08/11/22 12/28/23 12/27/23 History furosemide 20 mg tablet 20 mg PO DAILY PRN weight gain 08/11/22 12/28/23 Unknown History lamotrigine 100 mg tablet 100 mg PO DAILY 08/11/22 12/28/23 12/28/23 12:00 History lisinopril 10 mg tablet 10 mg PO DAILY 08/11/22 12/28/23 12/28/23 12:00 History mirtazapine 30 mg tablet 30 mg PO DAILY@1800 08/11/22 12/28/23 12/27/23 History olanzapine 15 mg tablet 30 mg PO BEDTIME 08/11/22 12/28/23 12/27/23 History omeprazole 20 mg capsule,delayed 20 mg PO DAILY@1200 08/11/22 12/28/23 12/28/23 12:00 History release alprazolam 1 mg tablet 1 mg PO TID Anxiety 07/02/23 12/28/23 12/28/23 12:00 History carvedilol 3.125 mg tablet 3.125 mg PO BIDWM 07/02/23 12/28/23 12/28/23 12:00 History melatonin 3 mg tablet 1.5 mg PO BEDTIME 07/02/23 12/28/23 12/27/23 History acetaminophen 500 mg tablet 1,000 mg PO BID PRN Pain 11/02/23 12/28/23 Unknown History cholecalciferol (vitamin D3) 50 100 mcg PO DAILY 11/02/23 12/28/23 12/28/23 12:00 History mcg (2,000 unit) tablet (Vitamin D3) empagliflozin 10 mg tablet 10 mg PO DAILY 11/02/23 12/28/23 12/28/23 12:00 History (Jardiance) insulin aspart U-100 100 unit/mL 6 unit subcut DAILY@1700 11/02/23 12/28/23 12/27/23 History (3 mL) subcutaneous pen (Novolog FlexPen U-100 Insulin aspart) magnesium oxide 400 mg PO BID 11/02/23 12/28/23 12/28/23 12:00 History mirtazapine 15 mg tablet 15 mg PO DAILY@1800 11/02/23 12/28/23 12/27/23 History insulin aspart U-100 100 unit/mL 14 unit subcut DAILY@0700,1200 12/28/23 12/28/23 12/28/23 12:00 History (3 mL) subcutaneous pen (Novolog FlexPen U-100 Insulin aspart) Physical Exam Vital Signs and Narrative: Vital Signs: Last Vital Signs Temp 97.9 F 12/28/23 18:34 Pulse 66 12/28/23 18:34 Resp 16 12/28/23 18:34 BP 116/78 12/28/23 18:34 Pulse Ox 98 12/28/23 18:34 O2 Del Method Room Air 12/28/23 18:34 BMI result Body Mass Index 38.0 General: AOx1, not to time, place, or situation. In no acute distress Resp: CTA bilaterally CVS: S1, S2, RRR GI: +BS, NT, no distention Skin: Warm, dry Neuro: Cranial nerves II-XII grossly intact bilaterally. Motor grossly intact bilaterally Extremities: No edema. 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 Psych: Mildly agitated. Results Labs 12/28/23 19:04 12/28/23 19:04 Labs: Laboratory Results - last 24 hr 12/28/23 19:04 MCV 89.4 MCH 29.2 MCHC 32.7 RDW 12.9 Plt Count 152 L MPV 10.4 Immature Gran % (Auto) 0.2 Neut % (Auto) 49.2 Lymph % (Auto) 33.4 [place] % (Auto) 7.6 Eos % (Auto) 9.1 H Baso % (Auto) 0.5 Lymph # (Auto) 2.0 [place] # (Auto) 0.5 Eos # (Auto) 0.5 H Baso # (Auto) 0.0 Abs Immat Gran (auto) 0.01 Absolute Neuts (auto) 2.9 Absolute Nucleated RBC 0.000 Nucleated RBC % (auto) 0.0 Anion Gap 11 L Estim Creat Clear Calc 40.5 Estimated GFR 32 Random Glucose 155 H Calcium 9.9 D Magnesium 1.8 Assessment and Plan (1) TESSA (acute kidney injury): Status: Acute Plan Pt is a 68-year-old male with a PMH significant for?Alzheimer's disease with behavioral disturbances, HFrEF, CAD, HTN, insulin-dependent diabetes type 2, neurogenic bladder, hx of prostate and bladder cancer, CKD 3, COPD, and PTSD who presents from home to the ED for evaluation of abnormal outpatient labs. Pt will be admitted to the hospital for treatment and further evaluation of TESSA in the setting of dehydration from reduced p.o. intake. TESSA Creatinine 2.07 at time of presentation, elevated from 1.48 on 11/04/2023 Likely due to dehydration in the setting of reduced p.o. intake due to advancing dementia Patient will be given 1 L fluid in the ED Hold Lasix, lisinopril Urine studies and UA results pending, cover with antibiotics if UA positive for UTI Follow BMP CAD Continue aspirin and statin HTN Continue carvedilol Hold lisinopril due to TESSA Insulin-dependent diabetes type 2 SSI, Lantus Diabetic diet HFrEF Not in acute exacerbation Hold home furosemide due to TESSA GERD Continue PPI Mood disorder Continue home meds Full Code Attending:?Dr. Malik DVT Prophylaxis: Lovenox Patient require at least a 2 night hospitalization due to treatment and further evaluation of TESSA in the setting of dehydration Likely secondary to reduced p.o. intake that will require IV fluids and close monitoring of labs and volume status due to history of CHF. Quality Stroke Does the patient have a stroke diagnosis?: No VTE Prior VTE?: No VTE Risk Level:: Medical - moderate - high VTE Device Contraindication: Treatment Not Indicated VTE Drug Contraindication: N/A - Med Ordered
[2023-12-28] MEDS: 0.9 % Sodium Chloride 1,000 ML 999 ML IV (20:42)
--- NOTE | 2023-12-28 20:43 | PC.NURSE ---
per Sydni DUGAN administer IV fluid bolus.
[2023-12-28 20:50] LABS: B Type Natriuretic Peptide 38 pg/mL (<100)
--- NOTE | 2023-12-28 20:50 | PHA.MEDREC ---
Addendum entered by Mone Bond RPh 12/28/23 21:08: reviewed by [facility]. Original Note: Pharmacy Consult ? Medication Reconciliation Pharmacy has completed the medication reconciliation. Confirmed medications with patient at bedside. The also confirmed her does fill and go to the [facility]. The confirmed her husbands Novolog insulin and he does it 14 units in the morning and the afternoon and 6 units at night and he is on a Lantus Solostar and he does 22 units at bedtime. His claimed he took his medications last today at 1200.
[2023-12-28] MEDS: Insulin Glargine,Hum.rec.anlog 100 UNIT/ML 10 ML VIAL 15 UNIT SUBCUT (21:27)
[2023-12-28] MEDS: OLANZapine 10 MG TABLET 30 MG PO (21:28)
[2023-12-28] MEDS: ALPRAZolam 0.5 MG TABLET 1 MG PO (21:28)
--- NOTE | 2023-12-28 21:40 | PC.NURSE ---
pt medicated per mar, tolerated whole well with water.
--- NOTE | 2023-12-28 21:52 | PC.NURSE ---
at this time, pt reports he wears briefs due to incontinence. [place] cath placed on pt for comfort.
--- NOTE | 2023-12-28 22:15 | PC.NURSE ---
phlebotomy at bedside, pt refused labs. Dr.Vali farrell.
[2023-12-28 22:29] VITALS: BP 136/64; PULSE 82; RESP 16; TEMP 36.5; O2SAT 98
[2023-12-29] MEDS: 0.9 % Sodium Chloride Flush 3 ML SYRINGE IVFLUSH ×4 (00:38→20:28)
[2023-12-29 03:02] VITALS: BP 135/89; PULSE 86; RESP 18; TEMP 36.1; O2SAT 100
[2023-12-29 07:56] LABS: Glucose, Whole Blood 187 mg/dL (60-115)
[2023-12-29 08:00] VITALS: BP 132/68; PULSE 86; RESP 14; TEMP 36.1; O2SAT 99
[2023-12-29 08:18] LABS: Appearance Urine Turbid; Color Urine Yellow; Glucose Urine UA Negative (Negative); Leukocyte Esterase Urine Large (3+) (Negative); Nitrite Urine Negative (Negative); PH >= 9.0 (5.0-9.0); Specific Gravity - Urine 1.015 (1.005-1.025); UMIC TRIGGER UACC YES; Urine Blood Trace (Negative); Urine Ketones Negative (Negative); Urine Protein 30 (1+) mg/dL (Neg-Trace)
[2023-12-29 08:20] LABS: Bacteria Urine 4+ (None Seen); RBC Urine 0-2 /HPF (0-2); Squamous Epithelial Cell Urine 0-2 /HPF (0-2); UACC Culture Trigger YES; WBC Urine >50 /HPF (0-5)
[2023-12-29] MEDS: Aspirin Enteric Coated 81 MG TABLET.DR PO (09:05)
[2023-12-29] MEDS: Insulin Lispro 100 UNIT/ML 3 ML VIAL SUBCUT ×3 (09:05→20:23)
[2023-12-29] MEDS: ALPRAZolam 0.5 MG TABLET 1 MG PO ×3 (09:06→20:27)
[2023-12-29] MEDS: Magnesium Oxide 400 MG TABLET PO ×2 (09:06→20:27)
[2023-12-29] MEDS: Cholecalciferol (Vitamin D3) 25 MCG TABLET 100 MCG PO (09:06)
[2023-12-29] MEDS: carvediloL 3.125 MG TABLET PO ×2 (09:06→16:07)
[2023-12-29] MEDS: lamoTRIgine 100 MG TABLET PO (09:06)
--- NOTE | 2023-12-29 09:50 | MHC.CM.PN ---
IMM 12/28. Pt with dx: dementia, CM intake assessment completed with pts /HCP Sarah. Pt lives at home with his who is his primary yarn examiner, pt is dependent with all care, uses a wheelchair. Pt has VNA services from [facility]. Pts will transport him home. HCP on file and verified. PCP: SPEECH AND LANGUAGE TUTORJessica
[2023-12-29 11:04] VITALS: BP 132/68; PULSE 86; O2SAT 99
[2023-12-29 11:17] LABS: Glucose, Whole Blood 184 mg/dL (60-115)
[2023-12-29] MEDS: Omeprazole 20 MG CAPSULE.DR PO (12:57)
--- NOTE | 2023-12-29 13:17 | P.CONNP_ITS ---
History of Present Illness Reason for Consult Consult date: 12/29/23 Reason for consult: TESSA Chief Complaint Chief complaint: Abnormal Labs History of Present Illness Narrative: 68-year-old male with a PMH significant for?Alzheimer's disease with behavioral disturbances, HFrEF, CAD, HTN, insulin-dependent diabetes type 2, neurogenic bladder, hx of prostate and bladder cancer, CKD 3, COPD, and PTSD who presents from home to the ED for evaluation of abnormal outpatient labs. Patient is alert and oriented to self only and incapable of providing an accurate HPI, which is instead taken from chart and provider review, as well as /HCP who is at bedside. Patient was seen by PCP via telehealth yesterday on 12/27/2023. Routine blood work and UA was completed at that time and apparently found hyperkalemia of 6.1 and creatinine elevated at 1.8. Review of Systems Review of Systems Yes Unobtainable due to mental status PMFSH Past Medical History Medical History Diabetes Anxiety Coronary artery disease NSTEMI (non-ST elevated myocardial infarction) Cardiomyopathy Sleep apnea Mini stroke Nephrolithiasis Neurogenic bladder Malignant neoplasm of overlapping sites of bladder Prostate cancer Family History Family History Father CAD (coronary artery disease) Pacemaker Surgical History Surgical History S/P cardiac cath History of cardiac cath Social History Social History Household Members: Spouse Housing: House Do you presently have visiting nurse or other home services: No (unknown, patient is a very poor historian.) Unable to assess alcohol history related to: Unknown Alcohol intake: never Patient Tobacco Use Status: Former Tobacco user Tobacco use type: Cigarette Second Hand Smoke Exposure: Yes Advance Directives Date on File: 04/12/21 service: Yes Current occupational status: disabled Meds Allergies Allergy/AdvReac Type Severity Reaction Status Date / Time quetiapine [From Seroquel] Allergy Mild LEG Verified 12/28/23 16:25 SWELLING haloperidol [From Haldol] Allergy Unknown Verified 12/28/23 16:25 onion [Onion] AdvReac Unknown NAUSEA & Verified 12/28/23 16:25 VOMITING PEPPERS AdvReac Mild NAUSEA & Uncoded 11/01/23 18:15 VOMITING Active Medications: Current Medications Acetaminophen (Acetaminophen 325 Mg Tablet) 650 mg PO Q6H PRN PRN Reason: Pain, Mild (Pain Scale 1-3), fever or headache Alprazolam (Alprazolam 0.5 Mg Tablet) 1 mg PO TID [facility] Last Admin: 12/29/23 09:06 Dose: 1 mg Aspirin (Aspirin Enteric Coated 81 Mg Tablet.Dr) 81 mg PO DAILY [facility] Last Admin: 12/29/23 09:05 Dose: 81 mg Atorvastatin Calcium (Atorvastatin Calcium 40 Mg Tablet) 40 mg PO BEDTIME [facility] Calcium Carbonate (Calcium Carbonate 750 Mg Tab.Chew) 750 mg PO Q4H PRN PRN Reason: Heartburn Carvedilol (Carvedilol 3.125 Mg Tablet) 3.125 mg PO BIDWM [facility]; Protocol Last Admin: 12/29/23 09:06 Dose: 3.125 mg Enoxaparin Sodium (Enoxaparin Sodium 40 Mg/0.4 Ml Syringe) 40 mg SUBCUT Q24H [facility] Last Admin: 12/28/23 20:40 Dose: Not Given Glucose (Glucose Gel 15 Gm Gel..Gram.) 15 gm PO Q15M PRN; Protocol PRN Reason: per Hypoglycemia Standing Ord. Dextrose (D10) 250 mls @ 750 mls/hr IV Q15M PRN; Protocol PRN Reason: per Hypoglycemia Standing Ord. Insulin Glargine (Insulin Glargine,Hum.Rec.Anlog 100 Unit/Ml 10 Ml Vial) 15 unit SUBCUT BEDTIME [facility] Last Admin: 12/28/23 21:27 Dose: 15 unit Insulin Human Lispro (Insulin Lispro 100 Unit/Ml 3 Ml Vial) 0 unit SUBCUT QIDACHS [facility]; Protocol Last Admin: 12/29/23 12:57 Dose: 2 unit Lamotrigine (Lamotrigine 100 Mg Tablet) 100 mg PO DAILY [facility] Last Admin: 12/29/23 09:06 Dose: 100 mg Lidocaine (Lidocaine 4 % Patch Adh..Patch) 1 patch TRANSDERMA DAILY PRN PRN Reason: Pain Magnesium Hydroxide (Milk Of Magnesia 30 Ml Oral.Susp) 30 ml PO DAILY PRN PRN Reason: Constipation Magnesium Oxide (Magnesium Oxide 400 Mg Tablet) 400 mg PO BID [facility] Last Admin: 12/29/23 09:06 Dose: 400 mg Melatonin (Melatonin 3 Mg Tablet) 6 mg PO BEDTIME PRN PRN Reason: Insomnia Mirtazapine (Mirtazapine 15 Mg Tablet) 15 mg PO DAILY@1800 [facility] Mirtazapine (Mirtazapine 30 Mg Tablet) 30 mg PO DAILY@1800 [facility] Olanzapine (Olanzapine 10 Mg Tablet) 30 mg PO BEDTIME [facility] Last Admin: 12/28/23 21:28 Dose: 30 mg Omeprazole (Omeprazole 20 Mg Capsule.Dr) 20 mg PO DAILY@1200 [facility] Last Admin: 12/29/23 12:57 Dose: 20 mg Ondansetron HCl (Ondansetron Hcl 4 Mg/2 Ml Vial) 4 mg IVPUSH Q8H PRN PRN Reason: Nausea and Vomiting Sodium Chloride (0.9 % Sodium Chloride Flush 3 Ml Syringe) 3 ml IVFLUSH QSHIFT [facility] Last Admin: 12/29/23 09:06 Dose: 3 ml Vitamin D (Cholecalciferol (Vitamin D3) 25 Mcg Tablet) 100 mcg PO DAILY [facility] Last Admin: 12/29/23 09:06 Dose: 100 mcg Home Medications ?Medication ?Instructions ?Recorded ?Confirmed ?Last Taken ?Type aspirin 81 mg tablet,delayed 81 mg PO DAILY 04/04/21 12/28/23 12/28/23 12:00 History release insulin glargine 100 unit/mL (3 22 unit subcut BEDTIME 03/05/22 12/28/23 12/27/23 History mL) subcutaneous pen (Lantus Solostar U-100 Insulin) lidocaine 5 % topical patch 1 patch topical DAILY PRN Pain 03/05/22 12/28/23 11/01/23 History atorvastatin 80 mg tablet 40 mg PO BEDTIME 08/11/22 12/28/23 12/27/23 History furosemide 20 mg tablet 20 mg PO DAILY PRN weight gain 08/11/22 12/28/23 Unknown History lamotrigine 100 mg tablet 100 mg PO DAILY 08/11/22 12/28/23 12/28/23 12:00 History lisinopril 10 mg tablet 10 mg PO DAILY 08/11/22 12/28/23 12/28/23 12:00 History mirtazapine 30 mg tablet 30 mg PO DAILY@1800 08/11/22 12/28/23 12/27/23 History olanzapine 15 mg tablet 30 mg PO BEDTIME 08/11/22 12/28/23 12/27/23 History omeprazole 20 mg capsule,delayed 20 mg PO DAILY@1200 08/11/22 12/28/23 12/28/23 12:00 History release alprazolam 1 mg tablet 1 mg PO TID Anxiety 07/02/23 12/28/23 12/28/23 12:00 History carvedilol 3.125 mg tablet 3.125 mg PO BIDWM 07/02/23 12/28/23 12/28/23 12:00 History melatonin 3 mg tablet 1.5 mg PO BEDTIME 07/02/23 12/28/23 12/27/23 History acetaminophen 500 mg tablet 1,000 mg PO BID PRN Pain 11/02/23 12/28/23 Unknown History cholecalciferol (vitamin D3) 50 100 mcg PO DAILY 11/02/23 12/28/23 12/28/23 12:00 History mcg (2,000 unit) tablet (Vitamin D3) empagliflozin 10 mg tablet 10 mg PO DAILY 11/02/23 12/28/23 12/28/23 12:00 History (Jardiance) insulin aspart U-100 100 unit/mL 6 unit subcut DAILY@1700 11/02/23 12/28/23 12/27/23 History (3 mL) subcutaneous pen (Novolog FlexPen U-100 Insulin aspart) magnesium oxide 400 mg PO BID 11/02/23 12/28/23 12/28/23 12:00 History mirtazapine 15 mg tablet 15 mg PO DAILY@1800 11/02/23 12/28/23 12/27/23 History insulin aspart U-100 100 unit/mL 14 unit subcut DAILY@0700,1200 12/28/23 12/28/23 12/28/23 12:00 History (3 mL) subcutaneous pen (Novolog FlexPen U-100 Insulin aspart) Physical Exam Vital Signs: Last Vital Signs Temp 97 F 12/29/23 08:00 Pulse 86 12/29/23 11:04 Resp 14 12/29/23 08:00 BP 132/68 12/29/23 11:04 Pulse Ox 99 12/29/23 11:04 O2 Del Method Room Air 12/29/23 08:00 BMI result Body Mass Index 38.0 Const General: ill appearing Neck Neck: Yes supple Resp Auscultation: clear to auscultation bilaterally Cardio Palpation: no palpable S3 Heart sounds: no rubs GI Palpation (GI): Soft to palpation Auscultation: normal bowel sounds Neuro Motor exam (neuro): no asterixis Extrem Other: Amputation of digits Results Lab Results 12/28/23 19:04 12/28/23 19:04 Lab results: Chemistry 12/28/23 19:04 Sodium 142 Potassium 5.0 Carbon Dioxide 25 BUN 53 H Creatinine 2.07 H Calcium 9.9 D Hematology 12/28/23 19:04 WBC 5.9 Hgb 12.9 L Plt Count 152 L Urinalysis 12/29/23 07:58 Urine Color Yellow Urine Appearance Turbid Urine pH >= 9.0 Ur Specific [place] 1.015 Urine Protein 30 (1+) H Urine Glucose (UA) Negative Urine Ketones Negative Urine Blood Trace H Urine Nitrite Negative Ur Leukocyte Esterase Large (3+) H Urine RBC 0-2 Urine WBC >50 H Ur Squamous Epith Cells 0-2 Hyaline Casts 3-5 Assessment and Plan (1) TESSA (acute kidney injury): Status: Acute Plan 68-year-old man with TESSA. TESSA in the setting of urosepsis. Probably has tubular injury from sepsis Obstructive uropathy should be ruled out. He does have some white cells in the urine and interstitial nephritis is a possibility as well. Recommendation Check urine for protein creatinine ratio. Await results of CT scan. Continue with antibiotic therapy for urosepsis Continue overt nephrotoxic agents including NSAIDs. Watch urine output closely. Keep intake more than output Maintain systolic blood pressure more than 100 mm Hg. No absolute indication for dialysis Further workup will be determined by the outcome of the above baseline investigations and clinical Procedures Date of Service Date of Service: 12/29/23
[2023-12-29 13:40] LABS: Osmolality Urine 469 mosm/kg (373-1093)
[2023-12-29 13:42] LABS: Creatinine Urine 41.66 mg/dL; Protein/Creatinine Ratio, Ur 0.79 (<0.2); Total Protein Urine Random 33 mg/dL (<12)
--- NOTE | 2023-12-29 15:11 | P.PNIM_ITS ---
Subjective Subjective Date of Service: 12/29/23 Interval History: tessa Review of Systems patient denies any abd pain or nausea or vomiting Physical Exam 2 Vital Signs: Vital Signs: Last Vital Signs Temp 97 F 12/29/23 08:00 Pulse 86 12/29/23 11:04 Resp 14 12/29/23 08:00 BP 132/68 12/29/23 11:04 Pulse Ox 99 12/29/23 11:04 O2 Del Method Room Air 12/29/23 08:00 BMI result Body Mass Index 38.0 Appearance: Alert.? Oriented X3.? cvs: rrr, [id number] . res: clear to auscultation ,no rhonchii or wheezing abd: no rebound or guarding ,nt, bs present. ext pulses present , no cyanosis neuro: axo3 , nonfocal. Objective Data Active Medications Acetaminophen (Acetaminophen 325 Mg Tablet) 650 mg PO Q6H PRN PRN Reason: Pain, Mild (Pain Scale 1-3), fever or headache Alprazolam (Alprazolam 0.5 Mg Tablet) 1 mg PO TID [facility] Last Admin: 12/29/23 09:06 Dose: 1 mg Documented By: MARIANA Aspirin (Aspirin Enteric Coated 81 Mg Tablet.) 81 mg PO DAILY [facility] Last Admin: 12/29/23 09:05 Dose: 81 mg Documented By: MARIANA Atorvastatin Calcium (Atorvastatin Calcium 40 Mg Tablet) 40 mg PO BEDTIME [facility] Calcium Carbonate (Calcium Carbonate 750 Mg Tab.Chew) 750 mg PO Q4H PRN PRN Reason: Heartburn Carvedilol (Carvedilol 3.125 Mg Tablet) 3.125 mg PO BIDWM [facility]; Protocol Last Admin: 12/29/23 09:06 Dose: 3.125 mg Documented By: MARIANA Enoxaparin Sodium (Enoxaparin Sodium 40 Mg/0.4 Ml Syringe) 40 mg SUBCUT Q24H [facility] Last Admin: 12/28/23 20:40 Dose: Not Given Documented By: CAIT Non-Admin Reason: Patient Refused Glucose (Glucose Gel 15 Gm Gel..Gram.) 15 gm PO Q15M PRN; Protocol PRN Reason: per Hypoglycemia Standing Ord. Dextrose (D10) 250 mls @ 750 mls/hr IV Q15M PRN; Protocol PRN Reason: per Hypoglycemia Standing Ord. Insulin Glargine (Insulin Glargine,Hum.Rec.Anlog 100 Unit/Ml 10 Ml Vial) 15 unit SUBCUT BEDTIME [facility] Last Admin: 12/28/23 21:27 Dose: 15 unit Documented By: CAIT Insulin Human Lispro (Insulin Lispro 100 Unit/Ml 3 Ml Vial) 0 unit SUBCUT QIDACHS [facility]; Protocol Last Admin: 12/29/23 12:57 Dose: 2 unit Documented By: MARIANA Lamotrigine (Lamotrigine 100 Mg Tablet) 100 mg PO DAILY [facility] Last Admin: 12/29/23 09:06 Dose: 100 mg Documented By: MARIANA Lidocaine (Lidocaine 4 % Patch Adh..Patch) 1 patch TRANSDERMA DAILY PRN PRN Reason: Pain Magnesium Hydroxide (Milk Of Magnesia 30 Ml Oral.Susp) 30 ml PO DAILY PRN PRN Reason: Constipation Magnesium Oxide (Magnesium Oxide 400 Mg Tablet) 400 mg PO BID [facility] Last Admin: 12/29/23 09:06 Dose: 400 mg Documented By: MARIANA Melatonin (Melatonin 3 Mg Tablet) 6 mg PO BEDTIME PRN PRN Reason: Insomnia Mirtazapine (Mirtazapine 15 Mg Tablet) 15 mg PO DAILY@1800 [facility] Mirtazapine (Mirtazapine 30 Mg Tablet) 30 mg PO DAILY@1800 [facility] Olanzapine (Olanzapine 10 Mg Tablet) 30 mg PO BEDTIME [facility] Last Admin: 12/28/23 21:28 Dose: 30 mg Documented By: CAIT Omeprazole (Omeprazole 20 Mg Capsule.) 20 mg PO DAILY@1200 [facility] Last Admin: 12/29/23 12:57 Dose: 20 mg Documented By: MARIANA Ondansetron HCl (Ondansetron Hcl 4 Mg/2 Ml Vial) 4 mg IVPUSH Q8H PRN PRN Reason: Nausea and Vomiting Sodium Chloride (0.9 % Sodium Chloride Flush 3 Ml Syringe) 3 ml IVFLUSH QSHIFT [facility] Last Admin: 12/29/23 09:06 Dose: 3 ml Documented By: MARIANA Vitamin D (Cholecalciferol (Vitamin D3) 25 Mcg Tablet) 100 mcg PO DAILY [facility] Last Admin: 12/29/23 09:06 Dose: 100 mcg Documented By: MARIANA Labs 12/28/23 19:04 12/28/23 19:04 Labs: Laboratory Results - last 24 hr 12/28/23 12/29/23 12/29/23 19:04 07:38 07:58 MCV 89.4 MCH 29.2 MCHC 32.7 RDW 12.9 Plt Count 152 L MPV 10.4 Immature Gran % (Auto) 0.2 Neut % (Auto) 49.2 Lymph % (Auto) 33.4 [place] % (Auto) 7.6 Eos % (Auto) 9.1 H Baso % (Auto) 0.5 Lymph # (Auto) 2.0 [place] # (Auto) 0.5 Eos # (Auto) 0.5 H Baso # (Auto) 0.0 Abs Immat Gran (auto) 0.01 Absolute Neuts (auto) 2.9 Absolute Nucleated RBC 0.000 Nucleated RBC % (auto) 0.0 Anion Gap 11 L Estim Creat Clear Calc 40.5 Estimated GFR 32 POC Glucose 187 H Random Glucose 155 H Calcium 9.9 D Magnesium 1.8 B-Natriuretic Peptide 38 Urine Color Yellow Urine Appearance Turbid Urine pH >= 9.0 Ur Specific [place] 1.015 Urine Protein 30 (1+) H Urine Glucose (UA) Negative Urine Ketones Negative Urine Blood Trace H Urine Nitrite Negative Ur Leukocyte Esterase Large (3+) H Urine RBC 0-2 Urine WBC >50 H Ur Squamous Epith Cells 0-2 Urine Bacteria 4+ Hyaline Casts 3-5 Urine Osmolality U Random Total Protein Ur Random Sodium Urine Creatinine Protein/Creatinin Ratio 12/29/23 12/29/23 08:01 11:13 MCV MCH MCHC RDW Plt Count MPV Immature Gran % (Auto) Neut % (Auto) Lymph % (Auto) [place] % (Auto) Eos % (Auto) Baso % (Auto) Lymph # (Auto) [place] # (Auto) Eos # (Auto) Baso # (Auto) Abs Immat Gran (auto) Absolute Neuts (auto) Absolute Nucleated RBC Nucleated RBC % (auto) Anion Gap Estim Creat Clear Calc Estimated GFR POC Glucose 184 H Random Glucose Calcium Magnesium B-Natriuretic Peptide Urine Color Urine Appearance Urine pH Ur Specific [place] Urine Protein Urine Glucose (UA) Urine Ketones Urine Blood Urine Nitrite Ur Leukocyte Esterase Urine RBC Urine WBC Ur Squamous Epith Cells Urine Bacteria Hyaline Casts Urine Osmolality 469 U Random Total Protein 33 H Ur Random Sodium 101.0 Urine Creatinine 41.66 Protein/Creatinin Ratio 0.79 H Assessment and Plan (1) TESSA (acute kidney injury): Status: Acute Plan 68-year-old male with a PMH significant for?Alzheimer's disease with behavioral disturbances, HFrEF, CAD, HTN, insulin-dependent diabetes type 2, neurogenic bladder, hx of prostate and bladder cancer, CKD 3, COPD, and PTSD who presents from home to the ED for evaluation of abnormal outpatient labs. Pt will be admitted to the hospital for treatment and further evaluation of TESSA in the setting of dehydration from reduced p.o. intake. TESSA-multifactorial( dehydration, urinary retention) Creatinine 2.07 at time of presentation, elevated from 1.48 on 11/04/2023 Likely due to dehydration in the setting of reduced p.o. intake due to advancing dementia Patient will be given 1 L fluid in the ED Hold Lasix, lisinopril, pvr with stright cath,added flomax Urine studies and UA results pending, cover with antibiotics if UA positive for UTI Follow BMP CAD Continue aspirin and statin HTN Continue carvedilol Hold lisinopril due to TESSA Insulin-dependent diabetes type 2 SSI, Lantus Diabetic diet HFrEF Not in acute exacerbation Hold home furosemide due to TESSA GERD Continue PPI Mood disorder Continue home meds Full Code DVT Prophylaxis: Lovenox ongoing hospitalization due to treatment : for TESSA in the setting of dehydration Likely secondary to reduced p.o. intake that will require IV fluids and close monitoring of labs and volume status due to history of CHF. Quality Stroke Does the patient have a stroke diagnosis?: No VTE Prior VTE?: No VTE Risk Level:: Medical - moderate - high VTE Device Contraindication: Treatment Not Indicated VTE Drug Contraindication: N/A - Med Ordered
[2023-12-29 15:59] VITALS: BP 136/74; PULSE 74; RESP 14; TEMP 36.1; O2SAT 99
[2023-12-29 16:00] LABS: Glucose, Whole Blood 112 mg/dL (60-115)
[2023-12-29] MEDS: Mirtazapine 15 MG TABLET PO (17:36)
[2023-12-29] MEDS: Mirtazapine 30 MG TABLET PO (17:36)
[2023-12-29 19:55] LABS: Glucose, Whole Blood 186 mg/dL (60-115)
[2023-12-29] MEDS: Insulin Glargine,Hum.rec.anlog 100 UNIT/ML 10 ML VIAL 15 UNIT SUBCUT (20:24)
[2023-12-29] MEDS: Enoxaparin Sodium 40 MG/0.4 ML SYRINGE SUBCUT (20:25)
[2023-12-29] MEDS: OLANZapine 10 MG TABLET 30 MG PO (20:27)
[2023-12-29] MEDS: Tamsulosin HCL 0.4 MG CAPSULE PO (20:27)
[2023-12-29] MEDS: Atorvastatin Calcium 40 MG TABLET PO (20:27)
[2023-12-29 23:40] VITALS: BP 122/74; PULSE 80; RESP 16; TEMP 36.2; O2SAT 98
--- NOTE | 2023-12-30 06:15 | PC.NURSE ---
? urinary retention. Patient had to be st. cath yesterday morning. Is incontinent and has a taxes catheter, not sure what time last voided. Bladder scanned for 380 ml. 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 Will continue to monitor.
[2023-12-30 07:21] LABS: Glucose, Whole Blood 187 mg/dL (60-115)
[2023-12-30 07:34] LABS: MANUAL DIFF FLAG NO
[2023-12-30 07:38] LABS: Basophils Percent Auto 0.4 % (0-2); Eosinophils Absolute Auto 0.3 X10*3/uL (0.0-0.4); Eosinophils Percent Auto 5.9 % (0-4); Hematocrit 38.7 % (42.0-52.0); Hemoglobin 12.8 g/dl (14.0-18.0); Imm Gran Abs Auto 0.01 X10*3/uL (0.00-0.03); Imm Gran Pct Auto 0.2 % (0.0-0.4); Lymphocytes Absolute Auto 1.9 X10*3/uL (1.2-4.9); Lymphocytes Percent Auto 34.1 % (20-40); Mean Corpuscular HGB Conc 33.1 g/dl (31.0-36.0); Mean Corpuscular Hemoglobin 28.9 pg (27.0-33.0); Mean Corpuscular Volume 87.4 fL (80.0-98.0); Mean Platelet Volume 10.8 fL (9.4-12.4); Monocytes Absolute Auto 0.5 X10*3/uL (0.1-1.2); Monocytes Percent Auto 9.5 % (2-11); Neutrophils Absolute Auto 2.8 x10*3/uL (2.0-8.3); Neutrophils Percent Auto 49.9 % (45-73); Platelet Count 150 X10*3/uL (160-400); Red Blood Count 4.43 X10*6/uL (4.60-5.80); Red Cell Distribution Width 12.7 % (11.0-16.0); White Blood Count 5.6 X10*3/uL (4.8-10.8)
[2023-12-30 07:50] VITALS: BP 161/75; PULSE 94; RESP 19; TEMP 36.6; O2SAT 100
[2023-12-30 07:54] LABS: Anion Gap 13 (12-20); Blood Urea Nitrogen 38 mg/dL (9-16); Calcium 9.7 mg/dL (8.4-10.2); Carbon Dioxide 20 mmol/L (22-29); Chloride 112 mmol/L (96-108); Creatinine Clr Calc Pharmacy 55.9; Estimated Glomerular Filt Rate 46; Glucose Random 202 mg/dL (60-115); Sodium 140 mmol/L (135-145)
[2023-12-30] MEDS: Insulin Lispro 100 UNIT/ML 3 ML VIAL SUBCUT ×2 (08:08→17:14)
[2023-12-30] MEDS: 0.9 % Sodium Chloride Flush 3 ML SYRINGE IVFLUSH ×2 (08:09→15:25)
[2023-12-30] MEDS: Magnesium Oxide 400 MG TABLET PO (08:10)
[2023-12-30] MEDS: ALPRAZolam 0.5 MG TABLET 1 MG PO ×2 (08:10→13:30)
[2023-12-30] MEDS: carvediloL 3.125 MG TABLET PO ×2 (08:10→16:27)
[2023-12-30] MEDS: lamoTRIgine 100 MG TABLET PO (08:10)
[2023-12-30] MEDS: Aspirin Enteric Coated 81 MG TABLET.DR PO (08:10)
[2023-12-30] MEDS: Cholecalciferol (Vitamin D3) 25 MCG TABLET 100 MCG PO (08:10)
--- NOTE | 2023-12-30 09:02 | PC.NURSE ---
Patient incontinent of large amt,bladder scanned by BRETT Conn for 322 ml,will monitor ,patient denies discomfort
[2023-12-30] MEDS: cefTRIAXone sodium 1 GM in 0.9 % Sodium Chloride 50 ML IV (09:48)
[2023-12-30 11:32] LABS: Glucose, Whole Blood 148 mg/dL (60-115)
[2023-12-30 11:48] VITALS: BP 134/78
[2023-12-30] MEDS: amLODIPine Besylate 2.5 MG TABLET PO (11:48)
[2023-12-30] MEDS: Docusate Sodium 100 MG CAPSULE PO (11:48)
[2023-12-30] MEDS: polyethylene glycoL 3350 17 GM POWD.PACK PO (11:49)
[2023-12-30] MEDS: Milk of Magnesia 30 ML ORAL.SUSP PO (11:55)
--- NOTE | 2023-12-30 13:28 | PC.NURSE ---
enema not available,pharmacy notified
[2023-12-30] MEDS: Omeprazole 20 MG CAPSULE.DR PO (13:30)
--- NOTE | 2023-12-30 13:42 | PC.NURSE ---
Patient refused enema ,Dr. Bertrand notified
[2023-12-30] MEDS: Sodium Phosphate,Mono-Dibasic 133 ML ENEMA PR (15:21)
--- NOTE | 2023-12-30 15:26 | MHC.CM.PN ---
pt expected to dc today after he hads a bm amb booked for 7 for transport home as is unable to transport if dc canceled rn given phonenumber to naima to cancel
[2023-12-30 15:35] VITALS: BP 133/76; PULSE 88; RESP 20; TEMP 36; O2SAT 100
[2023-12-30] MEDS: Mirtazapine 15 MG TABLET PO (16:27)
[2023-12-30] MEDS: Mirtazapine 30 MG TABLET PO (16:28)
[2023-12-30 16:58] LABS: Glucose, Whole Blood 178 mg/dL (60-115)
--- NOTE | 2023-12-30 17:43 | P.DS_ITS ---
DS: Providers Provider Date of Service: 12/30/23 Date of admission: 12/28/23 20:08 Date of discharge: 12/30/23 Primary care physician: Jessica Cardenas NP Consults: 12/29/23 07:05 Consult to Nephrology Routine Consulting Provider: [facility] Reason for consultation: tessa DS: Diagnosis Discharge Diagnosis (1) TESSA (acute kidney injury): Status: Acute DS: Summary Hospital Course Hospital Course: 68 years old man with past medical history significant for severe dementia, type 2 diabetes mellitus on insulin, CAD, GAY (noncompliant with CPAP), neurogenic bladder, prostate/bladder CA and nephrolithiasis was brought to the emergency department via ambulance after he started to fever. HPI was provided by patient's who was at bedside of the patient has significant dementia. The patient has been having chills but he denied any pain, headache, sore throat, cough, chest pain, shortness of breath, nausea, vomiting, diarrhea, pain with urination or blood in urine. The patient is a . He is a former smoker and denied alcohol abuse or illicit drug use. In the ED, he was initially found to have temperature of 101.5 degrees and low- grade tachycardia. There is no hypotension and oxygen saturation is normal on room air. Blood workup was remarkable for leukocytosis of 11.9. There is no lactic acidosis. CRP is 4.6. Hemoglobin is 12.3 and platelet 163. Venous blood gases are normal. There are no significant electrolyte imbalances. LFTs are normal. Renal function is around baseline. Urinalysis consistent with urinary tract infection. Viral testing for COVID-19, RSV influenza is negative. CXR showed no acute cardiopulmonary disease. Left foot x-ray showed no acute abnormalities. Abdominal pelvis CT scan showed marked bladder wall thickening with some pericholecystic inflammatory changes consistent with cystitis, mild prominence of the left renal collecting system compared with the right, choledocholithiasis with stones in the distal pancreatic duct near the junction of the common bile duct. ECG showed normal sinus bradycardia with a HR of 123 bpm and right bundle branch block. ED tx: Ceftriaxone 1 g IV, acetaminophen 975 mg p.o., NS 2 L bolus, Zosyn 4.5 g IV. Hospital course: Patient was admitted to the hospital secondary to TESSA in the setting of decreased p.o. intake, also use of lisinopril: Patient lisinopril was placed on hold as well as Lasix, given IV hydration in ED, also given some p.o. hydration: Patient seems to be improved, eating better, TESSA also improving, hold Lasix for next 2 days and repeat BMP outpatient and start Lasix as renal function allows. Hypertension: Will hold off on lisinopril also, add amlodipine for blood pressure, monitor BMP outpatient if renal function improve lisinopril can be reintroduce out patiently as per PCP. UTI: Urine culture previously grew E coli which is sensitive to ceftriaxone, current urine cultures Gram-negative geovanna (possible ecoli, will let patient know when cultures comes back), patient is afebrile, no leukocytosis. He had some frequency- Patient started on Ceftin 500 mg p.o. b.i.d. for 7 days. Mild urinary retention episode resolved on Flomax. Continue Flomax. If further urinary retention consider outpatient urology follow-up. Constipation: Patient was given enema patient produced big bowel movement, patient will be going home with laxatives, hold laxatives for diarrhea. PT recommended subacute rehab or [facility] but found patient's wants to take him home-[facility] discussed with patient's . Patient will be going home with [facility] PT . plan: Complete Ceftin 500 mg p.o. b.i.d. for 7 days. BMP outpatient in 1 week If renal function improved and lisinopril started out patiently then patient's amlodipine should be stopped outpatient. Flomax 0.4 mg daily for urinary retention, consider outpatient evaluation for with Urology Constipation disla-added Colace and MiraLax-hold if diarrhea. PT recommended subacute rehab or [facility] but found patient's wants to take him home-[facility] [facility] [employer] stewardess discussed with patient's . Patient will be going home with [facility] PT . Above management discussed with the patient and his in detail length they both understand and in agreement with the above plan, time spent 40 minute. Time Attestation Total time managing care of this patient today: 40 mintues. Discharge Coordination Time (in mins): 40 min Quality: Safe Use of Opioids Does Pt have an Active Cancer Diagnosis on the Problem List?: No Quality: Stroke Does the patient have a stroke diagnosis?: No Physical Exam Vital Signs: Vital Signs: Last Vital Signs Temp 96.8 F 08/24/24 15:35 Pulse 88 12/30/23 15:35 Resp 20 12/30/23 15:35 BP 133/76 12/30/23 15:35 Pulse Ox 100 12/30/23 15:35 O2 Del Method Room Air 12/30/23 15:35 BMI result Body Mass Index 38.0 Appearance: Alert.? Oriented X3.? cvs: rrr, [id number] . res: clear to auscultation ,no rhonchii or wheezing abd: no rebound or guarding ,nt, bs present. ext pulses present , no cyanosis neuro: axo3 , nonfocal. DS: Data Data Completed and Pending Completed studies during hospitalization [Text1]: Procedures Assistance with Respiratory Ventilation, Less than 24 Consecutive Hours, Continuous Positive Airway Pressure (04/04/21) Labs on day of discharge: Laboratory Results - last 24 hr 12/29/23 12/30/23 12/30/23 19:46 07:17 07:23 WBC 5.6 RBC 4.43 L Hgb 12.8 L Hct 38.7 L MCV 87.4 MCH 28.9 MCHC 33.1 RDW 12.7 Plt Count 150 L MPV 10.8 Immature Gran % (Auto) 0.2 Neut % (Auto) 49.9 Lymph % (Auto) 34.1 Cataño % (Auto) 9.5 Eos % (Auto) 5.9 H Baso % (Auto) 0.4 Lymph # (Auto) 1.9 Cataño # (Auto) 0.5 Eos # (Auto) 0.3 Baso # (Auto) 0.0 Abs Immat Gran (auto) 0.01 Absolute Neuts (auto) 2.8 Absolute Nucleated RBC 0.000 Nucleated RBC % (auto) 0.0 Sodium 140 Potassium 5.0 Chloride 112 H Carbon Dioxide 20 L Anion Gap 13 BUN 38 H Creatinine Estim Creat Clear Calc Estimated GFR POC Glucose 186 H 187 H Random Glucose Calcium 12/30/23 12/30/23 12/30/23 07:23 07:23 07:23 WBC RBC Hgb Hct MCV MCH MCHC RDW Plt Count MPV Immature Gran % (Auto) Neut % (Auto) Lymph % (Auto) Cataño % (Auto) Eos % (Auto) Baso % (Auto) Lymph # (Auto) Cataño # (Auto) Eos # (Auto) Baso # (Auto) Abs Immat Gran (auto) Absolute Neuts (auto) Absolute Nucleated RBC Nucleated RBC % (auto) Sodium Potassium Chloride Carbon Dioxide Anion Gap BUN 38 H Creatinine 1.50 H 1.50 H Estim Creat Clear Calc 55.9 55.9 Estimated GFR 46 POC Glucose Random Glucose Calcium 12/30/23 12/30/23 12/30/23 07:23 11:27 16:55 WBC RBC Hgb Hct MCV MCH MCHC RDW Plt Count MPV Immature Gran % (Auto) Neut % (Auto) Lymph % (Auto) Cataño % (Auto) Eos % (Auto) Baso % (Auto) Lymph # (Auto) Cata[place] # (Auto) Eos # (Auto) Baso # (Auto) Abs Immat Gran (auto) Absolute Neuts (auto) Absolute Nucleated RBC Nucleated RBC % (auto) Sodium Potassium Chloride Carbon Dioxide Anion Gap BUN Creatinine Estim Creat Clear Calc Estimated GFR 46 POC Glucose 148 H 178 H Random Glucose 202 H Calcium 9.7 Preliminary micro results at discharge 12/29/23 Unknown Urine Culture - Preliminary Urine Catheterized - Straight Catheter Gram negative geovanna Imaging Chest x-ray: Radiologist's impression: ITS Impressions Abdomen/Pelvis CT 12/29/23 08:00 IMPRESSION: 1. Unchanged, No evidence of nephrolithiasis or obstructive uropathy. 2. Unchanged Marked circumferential mural thickening of urinary bladder, compatible with bladder outflow obstruction or chronic cystitis. 3. Unchanged Extensive dystrophic calcifications in the pancreas, compatible with sequelae of chronic pancreatitis. 4. Extensive atherosclerotic calcifications of the abdominal aorta and bilateral iliac arteries. Unchanged, Left common iliac arterial stent is present. 5. Interval development of Marked fecal impaction in the rectum, distal and mid sigmoid colon. 6. Unchanged moderate compression fracture of L4. 7. Unchanged metallic fiducials in the prostate. Fleischner guidelines were followed. Electronically signed by: Mone Mejia MD 12/29/2023 01:37 PM EDT Discharge Plan Discharge Anticipated Discharge Date/Time: 12/30/23 17:25 Patient Disposition: Home Health Service Discharge Diagnosis: tessa, constipation, uti Referrals: [facility] [Other] - 1 Week Jessica Cardenas NP [Primary Care Provider] - 1 Week Discharge Medications: New tamsulosin 0.4 mg Capsule 0.4 mg PO BEDTIME Qty: 30 0RF docusate sodium 100 mg Capsule 100 mg PO BID Qty: 60 0RF cefuroxime axetil 500 mg tablet 500 mg PO BID Qty: 14 0RF polyethylene glycol 3350 17 gram Powder In Packet 17 g PO DAILY Qty: 30 0RF amlodipine 2.5 mg Tablet 2.5 mg PO DAILY Qty: 30 0RF Protocol: Hold for SBP< HOLD for SBP < : 90 Continued atorvastatin 80 mg tablet 40 mg PO BEDTIME omeprazole 20 mg capsule,delayed release(DR/EC) 20 mg PO DAILY@1200 lamotrigine 100 mg tablet 100 mg PO DAILY olanzapine 15 mg tablet 30 mg PO BEDTIME mirtazapine 30 mg tablet 30 mg PO DAILY@1800 aspirin 81 mg Tablet,Delayed Release (Dr/Ec) 81 mg PO DAILY lidocaine 5 % Adhesive Patch,Medicated 1 patch TOPICAL DAILY PRN (Reason: Pain) Rx Instructions: leave on most painful area for up to 12 hrs (leave off for 12 hrs) insulin glargine [Lantus Solostar U-100 Insulin] 100 unit/mL (3 mL) Insulin Pen 22 unit SUBCUT BEDTIME alprazolam 1 mg Tablet 1 mg PO TID melatonin 3 mg Tablet 1.5 mg PO BEDTIME carvedilol 3.125 mg tablet 3.125 mg PO BIDWM Rx Instructions: must administer with a meal/food insulin aspart U-100 [Novolog FlexPen U-100 Insulin] 100 unit/mL (3 mL) Insulin Pen 6 unit subcut DAILY@1700 Jardiance 10 mg Tablet 10 mg PO DAILY magnesium oxide 400 mg magnesium Tablet 400 mg PO BID acetaminophen 500 mg Tablet 1,000 mg PO BID PRN (Reason: Pain) cholecalciferol (vitamin D3) [Vitamin D3] 50 mcg (2,000 unit) Tablet 100 mcg PO DAILY mirtazapine 15 mg Tablet 15 mg PO DAILY@1800 insulin aspart U-100 [Novolog FlexPen U-100 Insulin] 100 unit/mL (3 mL) Insulin Pen 14 unit SUBCUT DAILY@0700,1200 Held furosemide 20 mg tablet 20 mg PO DAILY PRN (Reason: weight gain) Hold Instructions: Resume on 01/01/24. Rx Instructions: one tab as needed for wt gain 3+ lbs in 24 hours or 5 lbs in one week Discontinued lisinopril 10 mg tablet 10 mg PO DAILY Discharge Orders: Discharge Order (Routine); Ordered 12/30/23 Ordered By: Obdulia Bertrand Diet: Advance to usual diet Activity on Discharge: As tolerated Stand Alone Forms: Patient Portal Discharge page Print Language: Danish Care Plan Goals: Patient was admitted to the hospital secondary to TESSA in the setting of decreased p.o. intake, also use of lisinopril: Patient lisinopril was placed on hold as well as Lasix, given IV hydration in ED, also given some p.o. hydration: Patient seems to be improved, eating better, TESSA also improving, hold Lasix for next 2 days and repeat BMP outpatient and start Lasix as renal function allows. Hypertension: Will hold off on lisinopril also, add amlodipine for blood pressure, monitor BMP outpatient if renal function improve lisinopril can be reintroduce out patiently as per PCP. UTI: Urine culture previously grew E coli which is sensitive to ceftriaxone, current urine cultures Gram-negative geovanna likely ecoli , Patient started on Ceftin 500 mg p.o. b.i.d. for 7 days. Mild urinary retention episode resolved on Flomax. Continue Flomax. If further urinary retention consider outpatient urology follow-up. Constipation: Patient was given enema patient produced big bowel movement, patient will be going home with laxatives, hold laxatives for diarrhea. PT recommended subacute rehab or [facility] but found patient's wants to take him home-[facility] [facility] stewardess discussed with patient's . Patient will be going home with [facility] . Health Concerns: As above. Plan of Treatment: As above. Assessment: As above.
--- NOTE | 2023-12-30 17:53 | W.MHC.F2F ---
Service Date Service Date: 12/30/23 Encounter Date of encounter: 12/30/23 Encounter: nevaeh ,constipation ,uti Reasons for Services Signs and symptoms assessed: Abdominal pain or fever or any urinary complaints Reason for shelter: medication management, medication treatment and teach disease management Reason for physical therapy: home safety and mobility, therapeutic exercises, restore joint function, gait/transfer training, assess need for DME, ADL training, energy conservation and other MD Overseeing Care: Jessica Cardenas Homebound: Leaving the home is medically contraindicated at this time without the asist of a device and/or another person due th the listed conditions above and below. Reason homebound: weakness related to hospital stay Homebound supporting statement: Patient is generalized weak with multiple comorbidities-patient needs help to go to appointments, lab draws, PT. Certification: Based on the above findings, I certify that this patient is confined to the home and needs intermittent shelter care, physical therapy and/or speech therapy, or continues to need occupational therapy. The patient is under my care, and I have initiated the establishment of the plan of care. The patient will be followed by a physician who will periodically review the plan of care. Time Spent With Patient Time: Total time managing care of this patient today ____ minutes.
[2023-12-30] MEDS: cefuroxime axetiL 500 MG TABLET PO (17:59)
== END 2023-12-30 19:42 | disposition home health service (06) | DRG 690 ==
LOC: HO.ED 20:03 → HO.EDOVER 21:07 → HO.S3 23:58
PROVIDERS: Admitting Provider Student in an Organized Health Care Education/Training Program; Emergency Provider Emergency Medicine; PCP Nurse Practitioner Adult Health; Visit Provider Internal Medicine
DX: N39.0 Urinary tract infection, site not specified (principal); I13.0 Hypertensive heart and chronic kidney disease with heart failure and stage 1 through stage 4 chronic kidney disease, or unspecified chronic kidney disease; I50.22 Chronic systolic (congestive) heart failure; N17.9 Acute kidney failure, unspecified; F02.C18 Dementia in other diseases classified elsewhere, severe, with other behavioral disturbance; E86.0 Dehydration; R33.9 Retention of urine, unspecified; B96.4 Proteus (mirabilis) (morganii) as the cause of diseases classified elsewhere; K59.00 Constipation, unspecified; G30.9 Alzheimer's disease, unspecified; T50.1X5A Adverse effect of loop [high-ceiling] diuretics, initial encounter; T46.4X5A Adverse effect of angiotensin-converting-enzyme inhibitors, initial encounter; N31.9 Neuromuscular dysfunction of bladder, unspecified; N18.30 Chronic kidney disease, stage 3 unspecified; F43.10 Post-traumatic stress disorder, unspecified; K21.9 Gastro-esophageal reflux disease without esophagitis; E11.22 Type 2 diabetes mellitus with diabetic chronic kidney disease; I25.10 Atherosclerotic heart disease of native coronary artery without angina pectoris; Z85.46 Personal history of malignant neoplasm of prostate; Z85.51 Personal history of malignant neoplasm of bladder; Z87.891 Personal history of nicotine dependence; Z79.4 Long term (current) use of insulin; Z79.82 Long term (current) use of aspirin; Z79.899 Other long term (current) drug therapy
CPT/HCPCS: 36415; 74176; 80048; 81001; 82565; 82570; 82947; 83735; 83880; 83935; 84156; 84300; 84520; 85025; 87086; 87088; 87186; 93005; 97162; 99285; J0696; J1650

== ENCOUNTER → 2023-12-28 20:08 | Outpatient (BNV) | payer OTHER, SELFPAY | PROVIDERS: Admitting Provider Student in an Organized Health Care Education/Training Program; Emergency Provider Emergency Medicine; Visit Provider Student in an Organized Health Care Education/Training Program | DX: N17.9 Acute kidney failure, unspecified (principal) | CPT/HCPCS: 99223; 99231; 99239; G0180 ==

== ENCOUNTER → 2023-12-28 20:08 | Outpatient (BNV) | payer OTHER, SELFPAY | PROVIDERS: Admitting Provider Student in an Organized Health Care Education/Training Program; Emergency Provider Emergency Medicine; PCP Nurse Practitioner Adult Health; Visit Provider Internal Medicine Hypertension Specialist | DX: A41.9 Sepsis, unspecified organism (principal); N17.9 Acute kidney failure, unspecified | CPT/HCPCS: 99223 ==

== ENCOUNTER 2024-08-25 10:18 | Emergency (ER) | payer OTHER, SELFPAY ==
[2024-08-25] VITALS (7 sets, daily range): BP systolic 125–150; BP diastolic 49–61; PULSE 56–73; RESP 14–20; TEMP 36.4–36.8; O2SAT 92–100; BMI 38.4
--- NOTE | ~2024-08-25 | US_ITS ---
CLINICAL HISTORY: jaundice, elevated LFTs bili --- Additional Notes or Special Instructions: look at GB, ducts, liver, pancreas US abdomen limited Comparison: CT/SR - CT ABDOMEN PELVIS W IV CON - 08/25/24 12:[address] - CT ABDOMEN PELVIS W IV CON - 08/25/24 12:34 EDT Findings: Numerous pancreatic duct calcifications are seen measuring up to 1 cm in size. There is pancreatic ductal dilatation. Prominent dilation of the intrahepatic biliary tree measuring up to 10 mm. Common hepatic duct is dilated to 18 mm. Common bile duct is potentially visualized with diffuse internal debris. Gallbladder is not visualized. Right kidney is grossly unremarkable. IMPRESSION: Biliary dilation as above. This is suboptimally evaluated on this study. However, the patient had accompanying contrast-enhanced CT of the abdomen and pelvis which demonstrated findings highly concerning for an obstructing infiltrative mass lesion within the left lobe of the liver extending into the harry hepatis. Please refer to that report for full details. This document has been electronically signed by: Prince Foster MD on 08/25/2024 14:36:27
--- NOTE | ~2024-08-25 | CT_ITS ---
CLINICAL HISTORY: jaundice, elevated LFTs ?mass, obstruction Exam: CT abdomen and pelvis with intravenous contrast. Comparison: December 29, 2023. Findings: CT abdomen: Emphysematous changes in the lung bases. Dependent consolidation within the lower lobes bilaterally. No pleural effusion. Dense vascular calcification of the coronary arteries. Bones are osteopenic. Unchanged L4 compression fracture. No new fractures identified. Extensive concentric wall thickening of the distal esophagus. Large amount of ingested contents within the stomach. There is a abrupt caliber change of the level of the pylorus. Interval worsening of extensive dilation of both the intrahepatic and extrahepatic biliary tree. There is atrophy of the left lobe of the liver with findings suggestive of an infiltrative mass lesion throughout the left lobe of the liver extending into the harry hepatis. This is resulting in severe dilation of both the intrahepatic and proximal extrahepatic biliary tree. The intrahepatic bile ducts are dilated to 15 mm. Common hepatic duct is dilated to 28 mm. There is abrupt cutoff of the common hepatic duct near its junction with the common bile duct with nonvisualization of the distal common bile duct. Numerous calcifications are seen throughout the pancreas including the pancreatic head. There is pancreatic ductal dilatation measuring 15 mm. Main portal vein is patent. No focal splenic lesions. Adrenal glands and kidneys are unremarkable for acute findings. Gallbladder is not visualized. Small bowel loops are of normal caliber. CT pelvis: Dense vascular calcification of the abdominal aorta, mesenteric arteries, renal arteries, and iliac arteries. Prominent stool throughout the colon including a 4 cm stool ball within the rectum. No colonic wall thickening. No free fluid or free air. Fat containing bilateral inguinal hernias. Metallic fiducials are seen within the prostate gland. Impression: Findings should be considered indicative of infiltrative mass lesion within the left lobe of the liver resulting in biliary obstruction until proven otherwise. 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 This is significantly progressed compared to the patient's prior studies with dilation of both the intrahepatic and extrahepatic biliary tree at this time. Given the clinical history provided of jaundice, biliary decompression suggested which would likely best be performed percutaneously given the abrupt caliber change near the junction of the common bile duct and common hepatic duct. I suspect this mass in the region of the harry hepatis is resulting in at least partial gastric outlet obstruction. Please see above for full details. Surgical consultation suggested. This document has been electronically signed by: Prince Foster MD on 08/25/2024 14:35:30
--- NOTE | 2024-08-25 11:13 | ED_ITS ---
HPI - General Adult General Chief complaint: General Medical Stated complaint: yellow skin since Monday Time Seen by Provider: 08/25/24 10:40 Source: patient and family () Mode of arrival: ambulatory Limitations: no limitations History of Present Illness ED Provider: EBONI SINGLETARY PA-C HPI narrative: 68 y/o M patient; PMHX of alzheimer's disease, T2DM, CAD, GAY, neurogenic bladder, hx prostate/bladder, CAD presenting to the ED with concerns of yellow skin and florescent yellow urine in his diaper x3 days. Patient reports that his caretakers and his noticed these symptoms. His is at bedside to assist with history. Patient reports similar symptoms many years ago after consuming large amounts of Etoh. Patient's reports the yellow discoloration is always there but fluctuates in intensity. Patient reports quitting smoking over 5 years ago with an approximate 116 pack year history. The patient also reports quitting drinking etoh over 20 years ago. Admits to lower back and shoulder itchiness. Denies abdominal pain, N/V/D, dysuria, heamturia, urinary frequency/urgency. Recently saw PCP for pre-op physical for his cataract surgery. Related Data Home Medications ?Medication ?Instructions ?Recorded ?Confirmed aspirin 81 mg tablet,delayed 81 mg PO DAILY 04/04/21 12/28/23 release insulin glargine 100 unit/mL (3 22 unit subcut BEDTIME 03/05/22 12/28/23 mL) subcutaneous pen (Lantus Solostar U-100 Insulin) lidocaine 5 % topical patch 1 patch topical DAILY PRN Pain 03/05/22 12/28/23 atorvastatin 80 mg tablet 40 mg PO BEDTIME 08/11/22 12/28/23 furosemide 20 mg tablet 20 mg PO DAILY PRN weight gain 08/11/22 12/28/23 lamotrigine 100 mg tablet 100 mg PO DAILY 08/11/22 12/28/23 mirtazapine 30 mg tablet 30 mg PO DAILY@1800 08/11/22 12/28/23 olanzapine 15 mg tablet 30 mg PO BEDTIME 08/11/22 12/28/23 omeprazole 20 mg capsule,delayed 20 mg PO DAILY@1200 08/11/22 12/28/23 release alprazolam 1 mg tablet 1 mg PO TID Anxiety 07/02/23 12/28/23 carvedilol 3.125 mg tablet 3.125 mg PO BIDWM 07/02/23 12/28/23 melatonin 3 mg tablet 1.5 mg PO BEDTIME 07/02/23 12/28/23 acetaminophen 500 mg tablet 1,000 mg PO BID PRN Pain 11/02/23 12/28/23 cholecalciferol (vitamin D3) 50 100 mcg PO DAILY 11/02/23 12/28/23 mcg (2,000 unit) tablet (Vitamin D3) empagliflozin 10 mg tablet 10 mg PO DAILY 11/02/23 12/28/23 (Jardiance) insulin aspart U-100 100 unit/mL 6 unit subcut DAILY@1700 11/02/23 12/28/23 (3 mL) subcutaneous pen (Novolog FlexPen U-100 Insulin aspart) magnesium oxide 400 mg PO BID 11/02/23 12/28/23 mirtazapine 15 mg tablet 15 mg PO DAILY@1800 11/02/23 12/28/23 insulin aspart U-100 100 unit/mL 14 unit subcut DAILY@0700,1200 12/28/23 12/28/23 (3 mL) subcutaneous pen (Novolog FlexPen U-100 Insulin aspart) Previous Rx's ?Medication ?Instructions ?Recorded amlodipine 2.5 mg tablet 2.5 mg PO DAILY #30 tabs 12/30/23 cefuroxime axetil 500 mg tablet 500 mg PO BID #14 tabs 12/30/23 docusate sodium 100 mg capsule 100 mg PO BID #60 caps 12/30/23 polyethylene glycol 3350 17 gram 17 g PO DAILY #30 ea 12/30/23 oral powder packet tamsulosin 0.4 mg capsule 0.4 mg PO BEDTIME #30 caps 12/30/23 Allergies Allergy/AdvReac Type Severity Reaction Status Date / Time quetiapine [From Seroquel] Allergy Mild LEG Verified 08/25/24 10:24 SWELLING haloperidol [From Haldol] Allergy Unknown Verified 08/25/24 10:24 onion [Onion] AdvReac Unknown NAUSEA & Verified 08/25/24 10:24 VOMITING PEPPERS AdvReac Mild NAUSEA & Uncoded 11/01/23 18:15 VOMITING Review of Systems 2 Review of Systems: Yes all other systems are reviewed and are negative PMFSH Past Medical History Attestation statement: The following information was validated with the patient. Source: old records reviewed and nursing notes reviewed Medical History Diabetes Anxiety Coronary artery disease NSTEMI (non-ST elevated myocardial infarction) Cardiomyopathy Sleep apnea Mini stroke Nephrolithiasis Neurogenic bladder Malignant neoplasm of overlapping sites of bladder Prostate cancer Surgical History S/P cardiac cath History of cardiac cath Family History Family History Father CAD (coronary artery disease) Pacemaker Social History Social History Household Members: Spouse Housing: House Do you presently have visiting nurse or other home services: No (unknown, patient is a very poor historian.) Unable to assess alcohol history related to: Unknown Alcohol intake: never Patient Tobacco Use Status: Former Tobacco user Tobacco use type: Cigarette Second Hand Smoke Exposure: Yes Advance Directives Date on File: 04/12/21 service: Yes Current occupational status: disabled Physical Exam ED Vital Signs: Vital Signs - 24 hr 08/25/24 10:21 08/25/24 10:47 08/25/24 11:20 Temperature 97.8 F 97.8 F Pulse Rate 56 56 56 Respiratory Rate 16 16 20 Blood Pressure 125/59 L 125/59 L 136/56 L Pulse Oximetry 92 92 99 Oxygen Delivery Method Room Air Room Air 08/25/24 15:24 08/25/24 15:53 Temperature 97.6 F Pulse Rate 60 62 Respiratory Rate 17 16 Blood Pressure 140/61 H 150/53 H Pulse Oximetry 98 99 Oxygen Delivery Method Room Air Room Air BMI result Body Mass Index 38.4 Afebrile. slightly bradycardic. General: Well appearing, in no acute distress. Skin: Warm, dry, intact. Yellow discoloration to face, trunk, abdomen. Head: Normocephalic, atraumatic. EENT: Hearing is intact b/l. Scleral icterus. Cardiac: Chest wall symmetric. RRR. Lungs: Normal respiratory effort without accessory muscle use. CTA bilaterally. No rales, rhonchi, or wheezes.? Abdomen: Soft, non-tender, non-distended. No tenderness or guarding. Positive BS x4. Back: No midline spinous or paraspinal tenderness. No step off deformity. No CVA tenderness Ext: Bilateral finger amputations. non pitting b/l LE edema. Neuro: AOx3. Normal speech. Course Course Course Narrative: 1510 -- CBC without leukocytosis. Normocytic anemia, H&H 9.7/30, down trending from priors. Chemistry showing hyponatremia to 131. No other acute electrolyte abnormalities requiring intervention. Kidney function appears to be around baseline. BUN 32, creatinine 1.58. Random glucose 258. Total bilirubin 8.6, direct bilirubin 6.3. AST 126, ALT 244, alk phos 1437, ammonia 82 > concern for obstructive pathology. CT a/p and US ordered to assess for possible mass > received critical call from [facility] regarding findings from CT A/P. There is atrophy of the left lobe of the liver suggesting an infiltrative mass lesion throughout the left lobe of the liver extending into the harry hepatis, resulting in severe dilation of both the intrahepatic and proximal extrahepatic biliary tree. Intrahepatic bile duct dilated to 15 mm, common hepatic duct dilated to 28 mm. There is abrupt cutoff of the common hepatic duct near its junction with nonvisualization of the distal common bile duct. You are numerous calcifications throughout the pancreas including the pancreatic head with pancreatic ductal dilation measuring 15 mm. There is also extensive concentric wall thickening of the distal esophagus and a large amount of ingested contents within the stomach with abrupt caliber change at the level pylorus, suggestive of gastric outlet obstruction. Ultrasound right upper quadrant read demonstrating above findings. CBD potentially visualize with diffuse internal debris. Nonvisualization of the gallbladder. > I spoke with on-call GI Dr. Choudhury. He does not feel as though ERCP with stenting would be beneficial to patient at this time given the extent of obstructio/mass. He is recommending IR drainage, external biliary drainage, possible resection of mass and biopsy to rule out HCC. Unfortunately, we will not have IR service likely for another 2 days. > call out to [facility] transfer line 1600 -- spoke with general surgeon Dr. Tea Trejo at [facility]. She has accepted patient transfer, ED to ED. > I discussed all work up results with patient and his using feeder switchboard operator ( is mauritanian speaking). stressed the severity of the situation. informed patient that his current condition requires transfer to a facility that has the appropriate specialties. him and his verbalize understanding and they are agreeable with patient transfer. > ED legal secretary receptionist has initiated patient transfer > he is hemodynamically stable at this time. Well-appearing. no N/V or abdominal pain. Medications Administered Discontinued Medications Generic Name Dose Route Start Last Admin Trade Name Freq PRN Reason Stop Dose Admin Iohexol 100 ml 08/25/24 12:50 08/25/24 12:51 Iohexol 350 Mg/Ml 100 Ml Infus..Btl IV 08/25/24 12:51 85 ml ONCE ONE Administration Medical Decision Making Medical Decision Making [facility] Narrative: 68 y/o M patient; PMHX of alzheimer's disease, T2DM, CAD, GAY, neurogenic bladder, hx prostate/bladder CAD presenting to the ED with concerns of yellow skin and florescent yellow urine in his diaper x Monday. Vital signs stable. Afebrile. Differential includes hepatic cancer, cirrhosis, hepatitis, choleycystitis, biliary colic, biliary obstruction, pancreatitis, pancreatic mass, anemia, electrolyte imbalance, TESSA, CHF. Abdominal exam without peritoneal signs. Overall well appearing. Less likely to represent perforated ulcer/ GI bleed, acute infectious processes (pneumonia), atypical appendicitis, vascular catastrophe, bowel obstruction or viscus perforation Plan for labs, UA, CT A/P, right upper quadrant ultrasound, re-evaluation. Denies any pain at present. No pain control warranted at this time. Differential Diagnosis Differential Diagnoses: The differential diagnosis associated with the presentation includes As above Admission/Observation Consideration of admission/observation: Escalation of care including admission/observation considered Patient transferred to [facility] for further management of obstructive infiltrative hepatic lesion causing hepatic ductal dilation and partial gastric outlet obstruction Consult Healthcare Provider Management of the patient was discussed with: House Moving Supervisor (GI - Dr. Choudhury) Lab Data [facility] Lab Attestation statement: I reviewed the patient's lab results. As above 08/25/24 11:38 08/25/24 11:38 Labs: Lab Results 08/25/24 08/25/24 Range/Units 11:38 11:40 WBC 7.3 (4.8-10.8) X10*3/uL RBC 3.30 L D (4.60-5.80) X10*6/uL Hgb 9.7 L D (14.0-18.0) g/dl Hct 30.0 L D (42.0-52.0) % MCV 90.9 (80.0-98.0) fL MCH 29.4 (27.0-33.0) pg MCHC 32.3 (31.0-36.0) g/dl RDW 15.9 (11.0-16.0) % Plt Count 243 D (160-400) X10*3/uL MPV 10.5 (9.4-12.4) fL Immature Gran % (Auto) 0.7 H (0.0-0.4) % Neut % (Auto) 67.8 (45-73) % Lymph % (Auto) 19.3 L (20-40) % Luna % (Auto) 6.6 (2-11) % Eos % (Auto) 5.2 H (0-4) % Baso % (Auto) 0.4 (0-2) % Lymph # (Auto) 1.4 (1.2-4.9) X10*3/uL Luna # (Auto) 0.5 (0.1-1.2) X10*3/uL Eos # (Auto) 0.4 (0.0-0.4) X10*3/uL Baso # (Auto) 0.0 (0.0-0.2) X10*3/uL Abs Immat Gran (auto) 0.05 H (0.00-0.03) X10*3/uL Absolute Neuts (auto) 5.0 (2.0-8.3) x10*3/uL Absolute Nucleated RBC 0.000 (0.0-0.012) X10*3/uL Nucleated RBC % (auto) 0.0 (0.0-0.2) /100WBC PT 26.9 H (10.9-12.4) SEC INR 2.3 H (0.9-1.1) APTT 48.2 H (26.0-36.8) SEC Hold Blue Top SEE NOTE Sodium 131 L (135-145) mmol/L Potassium 4.3 (3.3-5.1) mmol/L Chloride 102 (96-108) mmol/L Carbon Dioxide 21 L (22-29) mmol/L Anion Gap 12 (12-20) BUN 32 H (9-16) mg/dL Creatinine 1.58 H (0.5-1.4) mg/dL Estim Creat Clear Calc 55.1 Estimated GFR 44 Random Glucose 258 H (60-115) mg/dL Calcium 9.0 D (8.4-10.2) mg/dL Magnesium 2.1 (1.6-2.6) mg/dL Total Bilirubin 8.6 H (0.0-1.0) mg/dL Direct Bilirubin 6.3 H (0.0-0.5) mg/dL AST 126 H (5-37) U/L ALT 244 H (0-40) U/L Alkaline Phosphatase 1437 H (39-117) U/L Ammonia 82 H (13-55) umol/L Total Creatine Kinase 34 L (38-174) U/L B-Natriuretic Peptide 104 H (<100) pg/mL Total Protein 6.2 L (6.5-8.0) g/dL Albumin 2.9 L (3.5-5.0) g/dL Lipase < 4 L (8-78) U/L Hold Yellow Top See Note Hepatitis A IgM Ab Nonreactive (Nonreactive) Hep Bs Antigen Negative (Negative) Hep Bs Antibody REACTIVE (Nonreactive) Hep B Core Total Ab Nonreactive (Nonreactive) Hepatitis C Ab (EIA) Nonreactive (Nonreactive) Independent Interpretation I performed an independent interpretation of an: Ultrasound and CT Scan Interpretation: CT a/p showing large mass to lower lobe of liver RUQ US gb not visualized Radiology Impression Discussion of test interpretation with radiology: I have reviewed the radiologist's reading. Radiologist Impression: Procedure(s): US abdomen limited Accession Number(s): [id number] cc: MARLYN CADENA BOX CAR WASHER; Eboni Singletary~ CLINICAL HISTORY: jaundice, elevated LFTs bili --- Additional Notes or Special Instructions: look at GB, ducts, liver, pancreas US abdomen limited Comparison: CT/SR - CT ABDOMEN PELVIS W IV CON - 08/25/24 12:[address] - CT ABDOMEN PELVIS W IV CON - 08/25/24 12:34 EDT Findings: Numerous pancreatic duct calcifications are seen measuring up to 1 cm in size. There is pancreatic ductal dilatation. Prominent dilation of the intrahepatic biliary tree measuring up to 10 mm. Common hepatic duct is dilated to 18 mm. Common bile duct is potentially visualized with diffuse internal debris. Gallbladder is not visualized. Right kidney is grossly unremarkable. IMPRESSION: Biliary dilation as above. This is suboptimally evaluated on this study. However, the patient had accompanying contrast-enhanced CT of the abdomen and pelvis which demonstrated findings highly concerning for an obstructing infiltrative mass lesion within the left lobe of the liver extending into the harry hepatis. Please refer to that report for full details. This document has been electronically signed by: Prince Foster MD on 08/25/2024 14:36:27 Procedure(s): CT abdomen pelvis w IV con Accession Number(s): [id number] Exam: CT abdomen and pelvis with intravenous contrast. Comparison: December 29, 2023. Findings: CT abdomen: Emphysematous changes in the lung bases. Dependent consolidation within the lower lobes bilaterally. No pleural effusion. Dense vascular calcification of the coronary arteries. Bones are osteopenic. Unchanged L4 compression fracture. No new fractures identified. Extensive concentric wall thickening of the distal esophagus. Large amount of ingested contents within the stomach. There is a abrupt caliber change of the level of the pylorus. Interval worsening of extensive dilation of both the intrahepatic and extrahepatic biliary tree. There is atrophy of the left lobe of the liver with findings suggestive of an infiltrative mass lesion throughout the left lobe of the liver extending into the harry hepatis. This is resulting in severe dilation of both the intrahepatic and proximal extrahepatic biliary tree. The intrahepatic bile ducts are dilated to 15 mm. Common hepatic duct is dilated to 28 mm. There is abrupt cutoff of the common hepatic duct near its junction with the common bile duct with nonvisualization of the distal common bile duct. Numerous calcifications are seen throughout the pancreas including the pancreatic head. There is pancreatic ductal dilatation measuring 15 mm. Main portal vein is patent. No focal splenic lesions. Adrenal glands and kidneys are unremarkable for acute findings. Gallbladder is not visualized. Small bowel loops are of normal caliber. CT pelvis: Dense vascular calcification of the abdominal aorta, mesenteric arteries, renal arteries, and iliac arteries. Prominent stool throughout the colon including a 4 cm stool ball within the rectum. No colonic wall thickening. No free fluid or free air. Fat containing bilateral inguinal hernias. Metallic fiducials are seen within the prostate gland. Impression: Findings should be considered indicative of infiltrative mass lesion within the left lobe of the liver resulting in biliary obstruction until proven otherwise. 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 This is significantly progressed compared to the patient's prior studies with dilation of both the intrahepatic and extrahepatic biliary tree at this time. Given the clinical history provided of jaundice, biliary decompression suggested which would likely best be performed percutaneously given the abrupt caliber change near the junction of the common bile duct and common hepatic duct. I suspect this mass in the region of the harry hepatis is resulting in at least partial gastric outlet obstruction. Please see above for full details. Surgical consultation suggested. This document has been electronically signed by: Prince Foster MD on 08/25/2024 14:35:30 Independent Historian Clinical information obtained from an independent historian. History obtained from or confirmed by: Spouse () External Record Review External record reviewed: Inpatient record Chronic Conditions Patient?s care impacted by: Cancer Social Determinants Patient?s care significantly limited by Social Determinants of Health including: Other Social Determinant of Health Critical Care Time Critical Care Time Critical Care Time: Yes Total Critical Care Time: 35 Attestation: Critical care time in the amount of 35 minutes has been provided to the patient in terms of direct patient care, frequent reevaluation, consultation with GI, review and interpretation of medical data and results, and management of potentially life-threatening conditions. This is all outside of any medical procedures. Discharge Plan Discharge Clinical Impression: Liver mass, left lobe, Intrahepatic bile duct dilation, Gastric outlet obstruction, Anemia Patient Disposition: [facility] Transfer Details: [facility] ED to ED - Dr. Tea Trejo Prescriptions: No Action atorvastatin 80 mg tablet 40 mg PO BEDTIME furosemide 20 mg tablet 20 mg PO DAILY PRN (Reason: weight gain) Rx Instructions: one tab as needed for wt gain 3+ lbs in 24 hours or 5 lbs in one week omeprazole 20 mg capsule,delayed release(DR/EC) 20 mg PO DAILY@1200 lamotrigine 100 mg tablet 100 mg PO DAILY olanzapine 15 mg tablet 30 mg PO BEDTIME mirtazapine 30 mg tablet 30 mg PO DAILY@1800 aspirin 81 mg Tablet,Delayed Release (Dr/Ec) 81 mg PO DAILY lidocaine 5 % Adhesive Patch,Medicated 1 patch TOPICAL DAILY PRN (Reason: Pain) Rx Instructions: leave on most painful area for up to 12 hrs (leave off for 12 hrs) insulin glargine [Lantus Solostar U-100 Insulin] 100 unit/mL (3 mL) Insulin Pen 22 unit SUBCUT BEDTIME alprazolam 1 mg Tablet 1 mg PO TID melatonin 3 mg Tablet 1.5 mg PO BEDTIME carvedilol 3.125 mg tablet 3.125 mg PO BIDWM Rx Instructions: must administer with a meal/food insulin aspart U-100 [Novolog FlexPen U-100 Insulin] 100 unit/mL (3 mL) Insulin Pen 6 unit subcut DAILY@1700 Jardiance 10 mg Tablet 10 mg PO DAILY magnesium oxide 400 mg magnesium Tablet 400 mg PO BID acetaminophen 500 mg Tablet 1,000 mg PO BID PRN (Reason: Pain) cholecalciferol (vitamin D3) [Vitamin D3] 50 mcg (2,000 unit) Tablet 100 mcg PO DAILY mirtazapine 15 mg Tablet 15 mg PO DAILY@1800 insulin aspart U-100 [Novolog FlexPen U-100 Insulin] 100 unit/mL (3 mL) Insulin Pen 14 unit SUBCUT DAILY@0700,1200 polyethylene glycol 3350 17 gram Powder In Packet 17 g PO DAILY Qty: 30 0RF tamsulosin 0.4 mg Capsule 0.4 mg PO BEDTIME Qty: 30 0RF docusate sodium 100 mg Capsule 100 mg PO BID Qty: 60 0RF amlodipine 2.5 mg Tablet 2.5 mg PO DAILY Qty: 30 0RF Protocol: Hold for SBP< HOLD for SBP < : 90 cefuroxime axetil 500 mg tablet 500 mg PO BID Qty: 14 0RF Interventions: Acute Care Transfer Worksheet (ED) Last Done: 08/25/24 18:39 Discharge Date/Time: 08/25/24 18:47 Print Language: Maltese
--- NOTE | 2024-08-25 11:30 | PC.NURSE ---
Pt awake/alert, refusing to answer questions for this nurse, IV was inserted and labs drawn via US guided. will attempt to get pt to answer questions when he settles more.
[2024-08-25 11:44] LABS: MANUAL DIFF FLAG NO
[2024-08-25 11:47] LABS: Basophils Percent Auto 0.4 % (0-2); Eosinophils Absolute Auto 0.4 X10*3/uL (0.0-0.4); Eosinophils Percent Auto 5.2 % (0-4); Hemoglobin 9.7 g/dl (14.0-18.0); Imm Gran Abs Auto 0.05 X10*3/uL (0.00-0.03); Imm Gran Pct Auto 0.7 % (0.0-0.4); Lymphocytes Absolute Auto 1.4 X10*3/uL (1.2-4.9); Lymphocytes Percent Auto 19.3 % (20-40); Mean Corpuscular HGB Conc 32.3 g/dl (31.0-36.0); Mean Corpuscular Hemoglobin 29.4 pg (27.0-33.0); Mean Corpuscular Volume 90.9 fL (80.0-98.0); Mean Platelet Volume 10.5 fL (9.4-12.4); Monocytes Absolute Auto 0.5 X10*3/uL (0.1-1.2); Monocytes Percent Auto 6.6 % (2-11); Neutrophils Percent Auto 67.8 % (45-73); Platelet Count 243 X10*3/uL (160-400); Red Cell Distribution Width 15.9 % (11.0-16.0); White Blood Count 7.3 X10*3/uL (4.8-10.8)
[2024-08-25 12:06] LABS: Alanine Aminotransferase 244 U/L (0-40); Albumin Level 2.9 g/dL (3.5-5.0); Alkaline Phosphatase 1437 U/L (39-117); Anion Gap 12 (12-20); Aspartate Amino Transferase 126 U/L (5-37); Bilirubin Direct 6.3 mg/dL (0.0-0.5); Bilirubin Total 8.6 mg/dL (0.0-1.0); Blood Urea Nitrogen 32 mg/dL (9-16); Carbon Dioxide 21 mmol/L (22-29); Chloride 102 mmol/L (96-108); Creatinine Clr Calc Pharmacy 55.1; Estimated Glomerular Filt Rate 44; Glucose Random 258 mg/dL (60-115); Magnesium 2.1 mg/dL (1.6-2.6); Potassium 4.3 mmol/L (3.3-5.1); Sodium 131 mmol/L (135-145); Total Protein 6.2 g/dL (6.5-8.0)
[2024-08-25 12:26] LABS: Lipase < 4 U/L (8-78)
[2024-08-25] MEDS: iohexoL 350 MG/ML 100 ML INFUS..BTL IV (12:51)
[2024-08-25 12:58] LABS: Ammonia 82 umol/L (13-55)
[2024-08-25 13:36] LABS: B Type Natriuretic Peptide 104 pg/mL (<100)
--- NOTE | 2024-08-25 13:36 | PC.NURSE ---
pt gave principal technical writer difficult time not wanting the CT scan, this nurse told patient it was important for him to have this scan performed so we could appropriately help him. Upon returning to the room, pt continued to not answer questions for this nurse, will attempt to get some of the questions answered if/when his returns.
[2024-08-25 15:22] LABS: INTERNATIONAL NORM RATIO 2.3 (0.9-1.1); Prothrombin Time 26.9 SEC (10.9-12.4)
[2024-08-25 15:24] LABS: Partial Thromboplastin Time 48.2 SEC (26.0-36.8)
--- NOTE | 2024-08-25 18:35 | PC.NURSE ---
[facility] report this nurse attempted to call [facility] ED multiple times to give report, last time calling was in presence of EMS when they arrived. EMS was told when they get to [facility] that this nurse is willing to give report and to have them give us a call as we couldnt get through to them.
--- NOTE | 2024-08-25 19:00 | PC.NURSE ---
marcial called from [facility] to get report, she apologized for them not being able to answer the phone on their end.
[2024-08-26 03:41] LABS: HBS Num1 12.09 mIU/mL (0-7.99); HBc Num1 0.12 S/CO (0.00-0.79); HBsAGNum1 0.53 S/CO (0.00-0.99); Hepatitis B Core Antibody Nonreactive (Nonreactive); Hepatitis B Surface Antigen Negative (Negative); ~HepC Num1 0.28 S/CO (0.00-0.79); ~Hepatitis B Surface Antibody REACTIVE (Nonreactive); ~Hepatitis C Antibody Nonreactive (Nonreactive)
[2024-08-27 08:40] LABS: Hepatitis A Antibody IgM 0.11 Index (0-0.79); ~Hepatitis A Antibody IgM Nonreactive (Nonreactive)
== END 2024-08-25 18:47 | disposition short-term general hospital (02) ==
PROVIDERS: Physician Assistant Medical; Emergency Provider Emergency Medicine Emergency Medical Services; PCP Nurse Practitioner Adult Health
DX: R16.0 Hepatomegaly, not elsewhere classified (principal); K83.8 Other specified diseases of biliary tract; K31.1 Adult hypertrophic pyloric stenosis; D64.9 Anemia, unspecified; R82.90 Unspecified abnormal findings in urine; E11.9 Type 2 diabetes mellitus without complications; Z85.46 Personal history of malignant neoplasm of prostate; Z79.899 Other long term (current) drug therapy
CPT/HCPCS: 36415; 74177; 76705; 80048; 80076; 82140; 82550; 83690; 83735; 83880; 85025; 85610; 85730; 86704; 86706; 86709; 86803; 87340; 99285; Q9967

== ENCOUNTER → 2024-08-25 12:09 | Outpatient (BNV) | payer OTHER, SELFPAY | PROVIDERS: Emergency Provider Emergency Medicine Emergency Medical Services; PCP Nurse Practitioner Adult Health; Visit Provider Radiology Diagnostic Radiology | DX: R17 Unspecified jaundice (principal); R16.0 Hepatomegaly, not elsewhere classified; R74.01 Elevation of levels of liver transaminase levels | CPT/HCPCS: 74177; 76705 ==